=== PATIENT | male | born 1935 | race Caucasian/White ===

== ENCOUNTER 2023-03-10 15:12 | Outpatient (OUT) | payer MEDICARE, SELFPAY ==
--- NOTE | 2023-03-10 | XR_ITS ---
[address] [address] Patient Name: CARLO SUAREZ MRN: [id number] date: 1935 Sex: M Assigned Patient Location: LAB Current Patient Location: LAB Accession/Order Number: [id number] Exam Date: 03/10/2023 15:40 Report Date: 03/10/2023 16:13 At the request of: JAIDEN JONES Procedure: XR chest 2V EXAM: XR chest 2V HISTORY: Short of breath COMPARISON: 02/01/2022 TECHNIQUE: Upright PA and lateral chest x-ray FINDINGS: The heart is not enlarged and the vasculature is not distended. The lungs are overexpanded with flattening of the hemidiaphragms indicating COPD. Calcified granulomas are again seen on the right. No acute infiltrate, effusion or pneumothorax is identified. A left shoulder prosthesis is in place. IMPRESSION: No acute infiltrate or evidence of cardiac decompensation. Some chronic changes are present. The overall appearance of the chest is unchanged. Electronically authenticated by: KAREEN MACHUCA Date: 03/10/2023 16:13
[2023-03-10 15:38] LABS: Basophils Absolute Auto 0.1 10^3/uL (0.0-0.1); Eosinophils Absolute Auto 0.3 10^3/uL (0.0-0.7); Eosinophils Percent Auto 5.3 % (0.9-7.0); Hematocrit 38.8 % (42.0-54.0); Immature Granulocytes Abs Auto 0.05 10^3/uL (0.00-0.03); Immature Granulocytes Pct Auto 0.8 % (0.0-0.5); Lymphocytes Absolute Auto 1.2 10^3/uL (1.2-3.8); Lymphocytes Percent Auto 18.5 % (20.5-60.0); Mean Corpuscular HGB Conc 33.5 g/dL (29.9-35.2); Mean Corpuscular Hemoglobin 32.4 pg (25.9-34.0); Mean Corpuscular Volume 96.8 fL (80.0-94.0); Mean Platelet Volume 10.6 fL (9.5-13.5); Monocytes Absolute Auto 0.6 10^3/uL (0.3-0.8); Monocytes Percent Auto 9.2 % (1.7-12.0); Neutrophils Absolute Auto 4.1 10^3/uL (1.4-6.5); Neutrophils Percent Auto 65.2 % (43.0-75.0); Platelet Count 163 10^3/uL (150-450); Red Blood Count 4.01 10^6/uL (4.70-6.10); Red Cell Distribution Width 13.7 % (11.0-15.0); White Blood Count 6.2 10^3/uL (4.0-11.0)
[2023-03-11 14:01] LABS: Anion Gap 16.1; Aspartate Amino Transferase 43 U/L (15-37); BUN Creatinine Ratio 25.9; Bilirubin Total 0.5 mg/dL (0.2-1.0); Calcium 9.3 mg/dL (8.5-10.1); Carbon Dioxide 27.1 mmol/L (21.0-32.0); Chloride 100 mmol/L (98-107); Estimated GFR (African America 33 (>=60); Estimated GFR (Non-African Ame 27 (>=60); Glucose 398 mg/dL (74-106); Potassium 4.2 mmol/L (3.5-5.1); Sodium 139 mmol/L (136-145)
[2023-03-11 14:02] LABS: Alanine Aminotransferase 60 U/L (16-63); Albumin Globulin Ratio 0.8; Albumin Level 3.7 g/dL (3.4-5.0); Alkaline Phosphatase 175 U/L (46-116); Globulin 4.9 g/dL; Total Protein 8.6 g/dL (6.4-8.2)
== END 2023-03-10 15:13 | disposition home or self-care (01) ==
LOC: LAB 15:16
PROVIDERS: PCP Family Medicine; Visit Provider Internal Medicine Interventional Cardiology
DX: R06.02 Shortness of breath (principal)
CPT/HCPCS: 36415; 71046; 80053; 83880; 85025

== ENCOUNTER 2023-04-01 08:10 | Outpatient (OUT) | payer MEDICARE, SELFPAY ==
--- NOTE | 2023-04-01 | PCN_ITS ---
CARDIAC STRESS TEST Requesting Physician:? Procedure Date:? 04/01/2023 This was a Lexiscan stress test with myocardial perfusion imaging performed at the [facility] on 04/01/2023.? The patient signed informed consent.? The patient was attached to electrocardiographic monitoring.? An intravenous line was secured.? Baseline vital signs and ECG were obtained.? Lexiscan 0.4 mg was infused intravenously followed by administration of Cardiolite.? The patient then went on to obtain myocardial perfusion imaging. Resting heart rate was 59 BPM.? Maximum heart rate was 89 BPM. Resting blood pressure was 144/76 and maximum blood pressure was 144/76. Baseline ECG showed evidence of sinus rhythm with first degree AV block.? Post Lexiscan infusion, there was evidence of prolongation of the AK interval with occasional non-conducted P-waves. ECG at the end of the test showed evidence of sinus rhythm with third degree AV block and marked AK interval prolongation. SUMMARY OF THE FINDINGS: 1.? No evidence of ischemic ECG changes following infusion of Lexiscan. 2.? Significant bradycardia, prolongation of the AK interval and occurrence of non-conducted P-waves seen following infusion of Lexiscan. 3.? Myocardial perfusion images will be reported separately. [facility]
--- NOTE | 2023-04-01 08:15 | NM_ITS ---
Patient: CARLO SUAREZ Exam Date: 04/01/2023 : 1935 Gender:M Ordering : DR JAIDEN JONES M.D. Admission #: [id number] Family : DR Jose Huiwale . Order #: [id number] CLICK HERE TO VIEW EXAM RADIOLOGY REPORT PROCEDURE: NM RAZ PERF SPECT REST STR COMPARISON: None. INDICATIONS: Shortness of breath TECHNIQUE: Exam Description: Stress/Rest one day protocol gated SPECT Rest Imagin.0 mCi Tc-99m Cardiolite IV on 04/01/2023 Stress Imaging 31.3 mCi Tc-99m Cardiolite IV on 04/01/2023 Exercise Protocol: 0.4 mg Lexiscan given IV Heart Rate (bpm): Rest: 59 Max: 89 PMHR: 66 Blood Pressure: Rest: 144/76 Max: 144/76 Symptoms: Rest and peak stress ECG findings were normal and the exercise portion of the study was normal per attending physician Dr. Franklin . For more details please see separate cardiac stress test report. FINDINGS: QUALITY OF STUDY: PERFUSION DEFECT: LOCATION: Apical anterior. [place]. SIZE: Small (1-2 segments). SEVERITY: Mild. TYPE: Persistent. WALL MOTION: Normal. LV SIZE: Normal. 116 mL. TID / TCD: None; 1.0 LVEF: Normal. Calculated EF 59%. SUMMARY: Myocardial perfusion imaging study has ABNORMAL findings. CONCLUSION: 1. Small fixed defect distal anterior wall and apex, possibly a buckle thinning 2. No reversible ischemia 3. Normal exercise test Dictated by: Doc Grace MD on 04/02/2023 at 09:19 Approved by: Doc Grace MD on 04/02/2023 at 09:38
--- NOTE | 2023-04-01 09:49 | CA_ITS ---
Patient: CARLO SUAREZ Exam Date: 04/01/2023 : 1935 Gender:M Ordering : DR Jessy Lamas M.D. Admission #: [id number] Family : Order #: [id number] CLICK HERE TO VIEW EXAM ECHOCARDIOGRAM REPORT PROCEDURE: CA ECHO DOPPLER COMPLETE INDICATIONS: Shortness of breath COMPARISON: None. DESCRIPTION: COMPLETE ECHOCARDIOGRAM Real-time transthoracic echocardiography with 2D, M-mode, spectral and color flow Doppler performed. QUALITY: Technical quality was good. LEFT VENTRICLE: Normal chamber size. Borderline left ventricular hypertrophy. Systolic function is at the lower limits of normal. LV EF: Lower limits of normal left ventricular ejection fraction, (50-55%). DIASTOLIC: ATRIAL SEPTUM: LEFT ATRIUM: Moderate dilatation. RIGHT ATRIUM: Mild dilatation. RIGHT VENTRICLE: Normal chamber size. Normal right ventricular systolic function. TRICUSPID VALVE: Normal mobility and thickness. No stenosis with trivial regurgitation. MITRAL VALVE: Normal mobility and thickness. No evidence of mitral valve stenosis. There is no mitral annular calcification. Trivial mitral regurgitation. AORTIC VALVE: Normal trileaflet appearance. Moderately calcified aortic valve. Moderately diminished mobility. Doppler velocity suggest moderate aortic valve stenosis. DVI 0.4, SINAN 1.2cm2, Vmax 1.94m/s, Mean gradient 8mmHg.Trivial aortic regurgitation. AORTIC ROOT: Normal diameter and appearance. PULMONIC VALVE: Normal thickness and mobility. No stenosis. No regurgitation. PERICARDIUM: No evidence of pericardial effusion. IVC: Collapses with inspirations. Normal size. PLEURA: CONCLUSION: 1. The ventricular systolic function is at the lower limits of normal. LVEF is 50 to 55%. 2. Normal right ventricular size and systolic function. 3. Mild to moderate atrial dilatation. 4. Moderate aortic valve stenosis. Adult Echocardiography Procedure Report Left Ventricle LVEDD (3.7 - 5.6 cm): 5.08 cm LVESD (2.2 - 4.0 cm): 3.81 cm LVIVS thickness (0.6 - 1.2 cm): 1.09 cm LVPW thickness (0.5 - 1.0 cm): 1.03 cm e': 0.08 m/s E - e': 10.69 LVOT Max Gradient: 2.21 mm[Hg] LVOT Area (cm2): 0.74 m/s Peak Velocity (LVOT): 0.74 m/s Mean Velocity (LVOT): 0.50 m/s LVOT Diameter 1.97 cm Left Ventricular Ejection Fraction: 50-55 % Left Atrium LA Volume Index (2D A2C): 38.48 ml/m2 Left Atrium Systolic Dimension: 4.45 cm Mitral Valve MV E to A Ratio: 0.90 Mitral Valve A-Wave Peak Velocity: 0.91 m/s Mitral Valve E-Wave Peak Velocity: 0.82 m/s Right Ventricle RV Internal Diastolic Dimension: 3.35 cm Aorta AO Root Diam: 3.07 cm Ascending Ao Diam: 2.95 cm Aortic Valve AoV Area (Peak Shaheen): 1.22 cm2, 1.21 cm2 AoV Area (VTI): 1.12 cm2, 1.17 cm2 Peak Velocity(Antegrade Flow): 1.87 m/s, 1.76 m/s, 1.94 m/s Peak Gradient(Antegrade Flow): 13.97 mm[Hg], 12.39 mm[Hg], 15.01 mm[Hg] Mean Velocity(Antegrade Flow): 1.39 m/s, 1.19 m/s, 1.39 m/s Mean Gradient(Antegrade Flow): 8.56 mm[Hg], 6.57 mm[Hg], 8.39 mm[Hg] Velocity Time Integral: 48.13 cm, 47.89 cm, 54.63 cm Tricuspid Valve Peak Velocity (Regurgitant Flow): 1.81 m/s Pulmonic Valve Mean Gradient: 1.22 mm[Hg], 1.55 mm[Hg] Mean Velocity: 0.50 m/s, 0.58 m/s Peak Velocity: 0.87 m/s Peak Gradient: 2.90 mm[Hg], 3.21 mm[Hg] Right Atrium Right Atrium Systolic Pressure: 79.84 ml, 79.84 ml Dictated by: Benny Franklin M.D. on 04/03/2023 at 18:28 Approved by: Benny Franklin M.D. on 04/03/2023 at 18:34
[2023-04-01] MEDS: REGADENOSON 0.4 MG/5 ML SYRINGE IV (10:25)
== END 2023-04-01 08:11 | disposition home or self-care (01) ==
LOC: NM 08:11
PROVIDERS: PCP Family Medicine; Visit Provider Internal Medicine Interventional Cardiology
DX: R06.02 Shortness of breath (principal)
CPT/HCPCS: 78452; 93017; 93306; A9500; J2785

== ENCOUNTER 2023-06-02 14:15 | Outpatient (OUT) | payer MEDICARE, SELFPAY ==
--- NOTE | 2023-06-02 14:17 | US_ITS ---
[address] [address] Patient Name: CARLO SUAREZ MRN: [id number] date: 1935 Sex: M Assigned Patient Location: Current Patient Location: US Accession/Order Number: [id number] Exam Date: 06/02/2023 14:19 Report Date: 06/02/2023 16:56 At the request of: NON-STAFF PHYSICIAN Procedure: US carotid duplex BI EXAMINATION: US carotid duplex BI HISTORY: Right carotid bruit COMPARISON: No relevant comparison available. TECHNIQUE: Duplex Doppler ultrasound analysis of carotid and vertebral arteries. . Bilateral carotid arterial duplex examination was performed using B-mode, color flow and spectral analysis. Carotid stenosis is reported according to validated velocity parameters, similar to NASCET criteria. FINDINGS: RIGHT CAROTID ARTERY Extensive atherosclerosis. 90% area reduction in the bulb Subclavian: PSV: 149.6 cm/s cm/s EDV: 0.0 cm/s cm/s CCA: Prox: PSV: 76.7 cm/s cm/s EDV: 11.6 cm/s cm/s Mid: PSV: 45.6 cm/s cm/s EDV: 9.3 cm/s cm/s Distal: PSV: 48.1 cm/s cm/s EDV: 13.2 cm/s cm/s BULB: PSV: 65.0 cm/s cm/s EDV: 8.0 cm/s cm/s ICA: Prox: PSV: 267.6 cm/s cm/s EDV: 50.1 cm/s cm/s Mid: PSV: 139.3 cm/s cm/s EDV: 38.4 cm/s cm/s Distal: PSV: 119.9 cm/s cm/s EDV: 26.8 cm/s cm/s ECA: PSV: 127.9 cm/s cm/s EDV: 16.4 cm/s cm/s VERTEBRAL: PSV: 36.1 cm/s cm/s EDV: 6.3 cm/s cm/s, antegrade ICA/CCA ratio: PSV: 3.5 EDV: 4.3 LEFT CAROTID ARTERY Extensive atherosclerosis. 87% area reduction in the bulb Subclavian: PSV: 150.1 cm/s cm/s EDV: 0.0 cm/s CCA: Prox: PSV: 34.8 cm/s cm/s EDV: 12.8 cm/s Mid: PSV: 41.3 cm/s cm/s EDV: 15.4 cm/s Distal: PSV: 34.8 cm/s cm/s EDV: 12.8 cm/s BULB: PSV: 42.6 cm/s cm/s EDV: 15.4 cm/s ICA: Prox: PSV: 59.4 cm/s cm/s EDV: 18.0 cm/s Mid: PSV: 22.7 cm/s cm/s EDV: 6.3 cm/s Distal: PSV: 32.0 cm/s cm/s EDV: 8.5 cm/s ECA: PSV: 294.5 cm/s cm/s EDV: 63.1 cm/s VERTEBRAL: PSV: 43.9 cm/s cm/s EDV: 11.5 cm/s , antegrade ICA/CCA ratio: PSV: 1.7 EDV: 1.4 US/US carotid duplex BI IMPRESSION: >70% flow stenosis in the right internal carotid artery in the area of reduction noted to the 90% in the right carotid bulb 80% area reduction in the left carotid bulb, low flow velocities in the left ICA are likely related to proximal stenosis Surgical evaluation suggested Spectral Doppler US Thresholds (Reference: Martin EG, et al. Radiology 2000; 214:247-252) Stenosis (%) PSV (cm/sec) VICA/VCCA 0-49 <150 <2.5 50-69 150-225 2.5-4.0 >70 >225 >4.0 Electronically authenticated by: ALVA MAI Date: 06/02/2023 16:56
== END 2023-06-02 14:16 | disposition home or self-care (01) ==
LOC: US 14:16
PROVIDERS: PCP Family Medicine
DX: R09.89 Other specified symptoms and signs involving the circulatory and respiratory systems (principal); I65.23 Occlusion and stenosis of bilateral carotid arteries
CPT/HCPCS: 93880

== ENCOUNTER 2023-06-30 12:26 | Outpatient (OUT) | payer MEDICARE, SELFPAY ==
[2023-06-30 12:54] LABS: Hemoglobin 12.1 g/dL (14.0-18.0); Mean Corpuscular HGB Conc 33.6 g/dL (29.9-35.2); Mean Corpuscular Hemoglobin 32.4 pg (25.9-34.0); Mean Corpuscular Volume 96.3 fL (80.0-94.0); Mean Platelet Volume 10.7 fL (9.5-13.5); Platelet Count 138 10^3/uL (150-450); Red Blood Count 3.74 10^6/uL (4.70-6.10); Red Cell Distribution Width 14.8 % (11.0-15.0); White Blood Count 6.2 10^3/uL (4.0-11.0)
[2023-06-30 12:55] LABS: Bilirubin Urine NEGATIVE (NEGATIVE); Blood Urine NEGATIVE (NEGATIVE); Clarity Urine CLEAR (CLEAR); Color Urine LT. YELLOW (YELLOW); Glucose Urine UA NEGATIVE (NEGATIVE); Ketones Urine NEGATIVE (NEGATIVE); Leukocyte Esterase Urine NEGATIVE (NEGATIVE); Nitrite Urine NEGATIVE (NEGATIVE); Protein Urine NEGATIVE (NEG/TRACE); Specific Gravity Urine <=1.005 (1.005-1.025); Urobilinogen Urine 0.2 EU/dL (0.2-1.0)
[2023-06-30 13:18] LABS: Creatinine Urine Random <13.00 mg/dL (20.00-300.00); Total Protein Urine Random 7.2 mg/dL (<=11.9)
[2023-06-30 13:21] LABS: Alanine Aminotransferase 61 U/L (16-63); Albumin Globulin Ratio 0.8; Albumin Level 3.6 g/dL (3.4-5.0); Alkaline Phosphatase 156 U/L (46-116); Anion Gap 11.8; Aspartate Amino Transferase 52 U/L (15-37); Bilirubin Total 0.7 mg/dL (0.2-1.0); Calcium 8.9 mg/dL (8.5-10.1); Carbon Dioxide 29.9 mmol/L (21.0-32.0); Chloride 104 mmol/L (98-107); Estimated GFR (African America 48 (>=60); Estimated GFR (Non-African Ame 40 (>=60); Globulin 4.5 g/dL; Glucose 140 mg/dL (74-106); Magnesium 1.1 mg/dL (1.8-2.4); Phosphorus 2.8 mg/dL (2.6-4.7); Potassium 3.7 mmol/L (3.5-5.1); Sodium 142 mmol/L (136-145); Total Protein 8.1 g/dL (6.4-8.2); Uric Acid 6.9 mg/dL (3.5-7.2)
[2023-06-30 13:22] LABS: Percent Iron Saturation 42.5 %
[2023-07-01 11:09] LABS: PTH, Intact 58 pg/mL (15-65)
== END 2023-06-30 12:27 | disposition home or self-care (01) ==
LOC: LAB 12:28
PROVIDERS: PCP Family Medicine; Visit Provider Internal Medicine Nephrology
DX: I12.9 Hypertensive chronic kidney disease with stage 1 through stage 4 chronic kidney disease, or unspecified chronic kidney disease (principal); N18.32 Chronic kidney disease, stage 3b; D64.9 Anemia, unspecified; R60.0 Localized edema; E83.51 Hypocalcemia; E61.1 Iron deficiency; E83.42 Hypomagnesemia; N40.1 Benign prostatic hyperplasia with lower urinary tract symptoms; N13.8 Other obstructive and reflux uropathy
CPT/HCPCS: 36415; 80053; 81003; 82306; 82570; 82607; 82728; 82746; 83540; 83550; 83735; 83970; 84100; 84156; 84550; 85027

== ENCOUNTER 2023-11-11 12:01 | Outpatient (OUT) | payer MEDICARE, SELFPAY ==
[2023-11-11 12:33] LABS: Hematocrit 40.6 % (42.0-54.0); Hemoglobin 13.4 g/dL (14.0-18.0); Mean Corpuscular Hemoglobin 32.8 pg (25.9-34.0); Mean Corpuscular Volume 99.5 fL (80.0-94.0); Mean Platelet Volume 11.5 fL (9.5-13.5); Platelet Count 151 10^3/uL (150-450); Red Blood Count 4.08 10^6/uL (4.70-6.10); Red Cell Distribution Width 14.3 % (11.0-15.0); White Blood Count 6.5 10^3/uL (4.0-11.0)
[2023-11-11 13:08] LABS: Alanine Aminotransferase 80 U/L (16-63); Albumin Globulin Ratio 0.7; Albumin Level 3.5 g/dL (3.4-5.0); Alkaline Phosphatase 206 U/L (46-116); Anion Gap 15.2; Aspartate Amino Transferase 55 U/L (15-37); BUN Creatinine Ratio 26.9; Bilirubin Total 0.7 mg/dL (0.2-1.0); Calcium 9.6 mg/dL (8.5-10.1); Carbon Dioxide 27.8 mmol/L (21.0-32.0); Chloride 99 mmol/L (98-107); Estimated GFR (African America 40 (>=60); Estimated GFR (Non-African Ame 33 (>=60); Globulin 5.2 g/dL; Glucose 243 mg/dL (74-106); Magnesium 1.9 mg/dL (1.8-2.4); Phosphorus 3.4 mg/dL (2.6-4.7); Sodium 138 mmol/L (136-145); Total Protein 8.7 g/dL (6.4-8.2); Uric Acid 8.2 mg/dL (3.5-7.2)
[2023-11-11 13:19] LABS: Creatinine Urine Random 16.67 mg/dL (20.00-300.00); Protein Creatinine Ratio Urine 0.48
[2023-11-12 12:10] LABS: PTH, Intact 77 pg/mL (15-65)
== END 2023-11-11 12:02 | disposition home or self-care (01) ==
LOC: LAB 12:02
PROVIDERS: PCP Family Medicine; Visit Provider Internal Medicine Nephrology
DX: N18.32 Chronic kidney disease, stage 3b (principal); I10 Essential (primary) hypertension; D64.9 Anemia, unspecified; R60.0 Localized edema; E83.51 Hypocalcemia; E61.1 Iron deficiency; E83.42 Hypomagnesemia; N40.1 Benign prostatic hyperplasia with lower urinary tract symptoms; N13.8 Other obstructive and reflux uropathy
CPT/HCPCS: 36415; 80053; 82306; 82570; 82607; 82728; 82746; 83540; 83550; 83735; 83970; 84100; 84156; 84166; 84550; 85027; 86335

== ENCOUNTER 2023-11-19 12:59 | Outpatient (OUT) | payer MEDICARE, SELFPAY ==
[2023-11-19 13:45] LABS: Creatinine Urine Random <13.00 mg/dL (20.00-300.00); Microalbumin Urine Random <1.3 mg/dL (<=30.0)
[2023-11-19 14:10] LABS: Albumin Level 3.6 g/dL (3.4-5.0); Anion Gap 13.9; BUN Creatinine Ratio 26.1; Calcium 9.5 mg/dL (8.5-10.1); Carbon Dioxide 28.8 mmol/L (21.0-32.0); Chloride 96 mmol/L (98-107); Cholesterol 177 mg/dL (<=200); Estimated GFR (African America 39 (>=60); Estimated GFR (Non-African Ame 32 (>=60); Glucose 455 mg/dL (74-106); HDL Cholesterol 60 mg/dL (40-60); Phosphorus 3.7 mg/dL (2.6-4.7); Potassium 3.7 mmol/L (3.5-5.1); Sodium 135 mmol/L (136-145); Triglycerides 187 mg/dL (<=150); VLDL CHOLESTEROL 37.4 mg/dL
== END 2023-11-19 13:00 | disposition home or self-care (01) ==
LOC: LAB 12:59
PROVIDERS: PCP Family Medicine; Visit Provider Internal Medicine
DX: E11.29 Type 2 diabetes mellitus with other diabetic kidney complication (principal); Z71.3 Dietary counseling and surveillance; E78.2 Mixed hyperlipidemia; N18.9 Chronic kidney disease, unspecified
CPT/HCPCS: 36415; 80061; 80069; 82043; 82306; 82570

== ENCOUNTER 2023-11-21 13:48 | Outpatient (OUT) | payer OTHER, SELFPAY ==
--- NOTE | 2023-11-21 13:52 | CT_ITS ---
[address] [address] Patient Name: CARLO SUAREZ MRN: [id number] date: 1935 Sex: M Assigned Patient Location: CT Current Patient Location: Accession/Order Number: [id number] Exam Date: 11/21/2023 14:57 Report Date: 11/22/2023 05:21 At the request of: NON-STAFF PHYSICIAN Procedure: CT abdomen pelvis wo con EXAMINATION: CT abdomen pelvis wo con HISTORY: Elevated Liver Enzymes, Right Lower Quadrant Tenderness , occasional nausea COMPARISON: CT abdomen pelvis 09/15/2019 TECHNIQUE: Axial, Coronal, and Sagittal images were obtained without and/or with IV contrast as indicated by examination type. Dose reduction techniques were achieved by using automated exposure control and/or adjustment of mA and/or kV according to patient size and/or use of iterative reconstruction technique. FINDINGS: LUNG BASES: Nodular liver margins suggestive of cirrhosis. LIVER: No enlargement, atrophy, suspicious density, or significant focal lesion. BILIARY: No dilatation or calcification. PANCREAS: No lesion, fluid collection, or abnormal duct dilatation. SPLEEN: No enlargement or focal lesion. ADRENALS: No mass or enlargement. KIDNEYS: Mild atrophy bilaterally. No mass, obstruction, or calcification. BOWEL/MESENTERY: Innumerable small diverticula involving the descending and sigmoid colon without acute inflammatory changes. No visible mass, obstruction, or bowel wall thickening. AORTA/VASCULAR: Marked atherosclerotic disease of aorta and branches. No aneurysm. RETROPERITONEUM: No mass or adenopathy. LYMPH NODES: No adenopathy. URINARY BLADDER: No visible focal wall thickening, lesion, or calculus. PELVIC ORGANS: No visible mass. Pelvic organs appropriate for patient age. ABDOMINAL WALL: No mass or hernia. Suspect prior umbilical hernia repair. BONES: No bony lesion or fracture. OTHER: Negative. CT/CT abdomen pelvis wo con IMPRESSION: 1. Nodular liver; nonspecific but suggestive of cirrhosis. No ascites, enlargement of the spleen, or secondary findings to suggest portal hypertension. 2. Colonic diverticulosis. 3. Marked atherosclerotic disease. Electronically authenticated by: HOLLIS CROW Date: 11/22/2023 05:21
--- OUTSIDE RECORDS SUMMARY | 2023-11-21 14:10 | XMS_ITS | CCD ---
Author Name Unknown Address [id number] [place] [address] Organization [facility] Care Team Providers Care Maintenance Welder Name Role Phone SELF, REFERRED Referring Unavailable SCOTT BARNETT Admitting Unavailable SCOTT BARNETT Attending Unavailable JOSE BREWER Primary Care Unavailable Kaur Robins Unavailable MD Kaur Robins Primary Care Provider MD Kaur Robins Attending Provider KAREEN CRABTREE Attending Unavailable KAREEN CRABTREE Admitting Unavailable DANIELLA, DR JOSE Dhaliwal Primary Care Unavailable WEST, DR ALVA Johnston Consulting Unavailable WEST, DR ALVA Johnston Attending Unavailable WEST, DR ALVA Johnston Admitting Unavailable NADERER, DR JOSE Dhaliwal Primary Care Unavailable WEST, DR ALVA Johnston Consulting Unavailable WEST, DR ALVA Johnston Attending Unavailable WEST, DR ALVA Johnston Admitting Unavailable NADERER, DR JOSE Dhaliwal Primary Care Unavailable [facility] DR KENDALL Swanson Consulting Unavailable WEST, DR ALVA Johnston Consulting Unavailable WEST, DR ALVA Johnston Attending Unavailable WEST, DR ALVA Johnston Admitting Unavailable NADERER, DR JOSE Dhaliwal Primary Care Unavailable NADERER, DR JOSE Dhaliwal Primary Care Unavailable WEST, DR ALVA Johnston Attending Unavailable WEST, DR AVLA Johnston Admitting Unavailable WEST, DR ALVA Johnston Consulting Unavailable NADERER, DR JOSE Dhaliwal Primary Care Unavailable WEST, DR ALVA Johnston Consulting Unavailable WEST, DR ALVA Johnston Attending Unavailable WEST, DR ALVA Johnston Admitting Unavailable NADERER, DR JOSE Dhaliwal Primary Care Unavailable RAMY WATKINS Consulting Unavailable RAMY WATKINS Attending Unavailable RAMY WATKINS Admitting Unavailable MISC, DR REYNAGA Consulting Unavailable MISC, DR REYNAGA Attending Unavailable NADALETHEA, DR JOSE Dhaliwal Primary Care Unavailable MISC, DR REYNAGA Admitting Unavailable BAKHOUS, AZIZ Consulting Unavailable BAKHOUS, AZIZ Attending Unavailable BAKHOUS, AZIZ Admitting Unavailable NADERER, DR JOSE Dhaliwal Primary Care Unavailable EARL, JERICA Attending Unavailable NADERER, DR JOSE Dhaliwal Primary Care Unavailable EARL, JERICA Admitting Unavailable EARL, JERICA Consulting Unavailable NADERER, DR JOSE Dhaliwal Primary Care Unavailable MISC, DR REYNAGA Consulting Unavailable MISC, DOCTOR Attending Unavailable MISC, DOCTOR Admitting Unavailable BAKHOUS, AZIZ Consulting Unavailable BAKHOUS, AZIZ Attending Unavailable NADERER, DR JOSE Dhaliwal Primary Care Unavailable BAKHOUS, AZIZ Admitting Unavailable ELTAHAWY, DR HWANG Consulting Unavailable ELTAHAWY, DR HWANG Attending Unavailable NADERER, DR JOSE Dhaliwal Primary Care Unavailable ELTAHAWY, DR HWANG Admitting Unavailable NADERER, DR JOSE Dhaliwal Primary Care Unavailable NADERER, DR JOSE Dhaliwal Consulting Unavailable NADERER, DR JOSE Dhaliwal Attending Unavailable NADERER, DR JOSE Dhaliwal Admitting Unavailable EARL, JERICA Admitting Unavailable NADERER, DR JOSE Dhaliwal Primary Care Unavailable EARL, JERICA Attending Unavailable WEST, DR ALVA Johnston Consulting Unavailable WEST, DR ALVA Johnston Attending Unavailable WEST, DR ALVA Johnston Admitting Unavailable NADERER, DR JOSE Dhaliwal Primary Care Unavailable [facility], DR KENDALL Swanson Consulting Unavailable Jose Brewer MD Primary Care Provider [phone] JOSE BREWER Attending Unavailable WITHERELL, SHELMITH Attending Unavailable WITHERELL, SHELMITH Attending Unavailable ELTAHAWY, EHAB Attending Unavailable ELTAHAWY, EHAB Attending Unavailable Allergies Allergy Classification Reported Allergen(s) Allergy Type Date of Onset Reaction(s) Facility (1 source) Penicillin V Drug Allergy stomach upset [email or web address] Other (5 sources) Penicillin; Translations: [penicillin] Drug Allergy stomach upset [facility] (2 sources) cefdinir Drug Allergy 09-15-19 [facility] (3 sources) cefdinir Drug Allergy 10-08-19 24 Diarrhea [facility] (4 sources) Penicillins; Translations: [PENICILLINS] Drug Intolerance 05-05-20 21 Diarrhea, Nausea And Vomiting, GI intolerance, Unknown [facility] Work Phone: (3 sources) Shellfish Propensity to adverse reactions 01-29-20 14 Rash [facility] Medications Current Medications Medication Drug Class(es) Dates Sig (Normalized) Sig (Original) [id number] 200 actuat albuterol 0.09 mg/actuat metered dose inhaler (5 sources) beta2-Adrenergic Agonist Start: 05-13-2023 albuterol HFA 90 mcg/act inhaler 1 puff 0 05/13/2023 Active End: 10-30-2023 albuterol (ProAir RespiClick ) 90 mcg/act breath-activated inhaler every 4 (four) hours. 0 10/30/2023 Discontinued (Therapy completed) Albuterol / Ipratropium (9 sources) Anticholinergic, beta2-Adrenergic Agonist Albuterol-Ipratropiu m Active ascorbic acid 113 mg / copper gluconate 0.4 mg / docosahexaenoic acid 87.5 mg / eicosapentaenoic acid 163 mg / lutein 2.5 mg / tocopherol acetate 100 unt / zeaxanthin 0.5 mg / zinc oxide 17.4 mg oral capsule (3 sources) Vitamin C take 1 capsule by mouth twice daily PreserVision AREDS 2 - 1 CAPSULE Orally TWICE A DAY Active aspirin 81 mg oral tablet (2 sources) Platelet Aggregation Inhibitor, Nonsteroidal Anti-inflammatory Drug take 1 tablet by mouth once daily Aspirin 81 81 MG 1 tablet Orally Once a day Active atorvastatin 40 mg oral tablet (14 sources) HMG-CoA Reductase Inhibitor End: 10-30 atorvastatin (Lipitor) 40 MG tablet 1 (one) time each day at the same time 0 Active bumetanide 0.5 mg oral tablet (12 sources) Loop Diuretic Start : 10-23 take 2 tablets by mouth once daily Bumex 0.5 MG 2 tabs Orally Once a day for 90 days Oct, Active take 1 tablet by mouth once melissa y bumetanide (Bumex) 0.5 MG tablet Take 0.5 mg by mouth 1 (one) time each day at the same time. 0 Active take 4 tablets by mo uth in the morning, then take 4 tablets by mouth once daily in the evening Bumex 0.5 MG 4 tabs in am and 4 tab PM Orally Once a day for 30 days Active Calcium Carbonate (11 sources) Start: 01-14-2022 Calcium Carbon ate 1250 (500 Ca) MG 2 Orally bid January, Active Start: 01-14-2022 Calcium Carbon ate 1250 (500 Ca) MG 2 Orally bid for 30 day(s) January, Active take 1 tablet by lynne th in the morning calcium carbonate (Os-Victor Hugo) 1250 (500 Ca) MG tablet Take 1 tablet by mouth in the morning and 1 tablet before bedtime. 0 Active Calcium Carbonat e 1250 (500 Ca) MG 2 Orally bid Not-Taking Calcium Carbonat e 1250 (500 Ca) MG 2 Orally bid Active carvedilol 3.125 mg oral tablet (12 sources) alpha-Adrenergic Estuardo, beta-Adrenergic Estuardo carvedilol (Core g) 3.125 MG tablet Take 3.125 mg by mouth. 0 Active take 1 tablet by lynne th every twelve hours Carvedilol 12.5 MG 1 tablet with food Orally Twice a day Active chlorthalidone 25 mg oral tablet (4 sources) Thiazide-like Diuretic take 1 tablet by mouth every twenty-four hours Chlorthalidone 25 MG 1 tablet in the morning with food Orally Once a day Active clopidogrel 75 mg oral tablet (12 sources) P2Y12 Platelet Inhibitor clopidogrel (Plavix) 75 MG tablet Take 75 mg by mouth. 0 Active clotrimazole 10 mg/ml topical cream (2 sources) Azole Antifungal Start: clotrimazole (Lotrimin) 1 % cream Indications: Skin candidiasis Apply topically 2 (two) times a day 60 g 2 10/30/2023 Active empagliflozin 10 mg oral tablet (2 sources) Sodium-Glucose Cotransporter 2 Inhibitor Start: 024 take 10 mg by mouth in the morning Jardiance 10 MG Take 10 mg by mouth in the morning. 0 10/25/2023 Active 15 ml ferric carboxymaltose 50 mg/ml injection (3 sources) Start: Injectafer 750 MG/15ML as directed Intravenous every 2 weeks for 14 days January, Active ferrous sulfate 325 mg oral tablet (8 sources) take 1 tablet by mouth at mealtime ferrous sulfate 325 (65 Fe) MG tablet Take 65 mg by mouth in the morning. Take with meals. 0 Active take 1 tablet by mouth every twe lve hours Ferrous Sulfate 325 (65 Fe) MG 1 tablet Orally twice a day Active take 1 tablet by mouth twice hunter ly Ferrous Sulfate 325 (65 Fe) MG 1 tablet Orally twice a day Active take 1 tablet by mouth once melissa y Ferrous Sulfate 325 (65 Fe) MG 1 tablet Orally Once a day Active 30 actuat fluticasone furoate 0.1 mg/actuat / umeclidinium 0.0625 mg/actuat / vilanterol 0.025 mg/actuat dry powder inhaler (5 sources) Anticholinergic, Corticosteroid, beta2-Adrenergic Agonist take 1 puff(s) by inhalation once daily Trelegy Ellipta 100-62.5-25 MCG/INH 1 puff Inhalation Once a day Active 120 actuat formoterol fumarate 0.0048 mg/actuat / glycopyrrolate 0.009 mg/actuat metered dose inhaler (2 sources) beta2-Adrenergic Agonist take 2 puff(s) by inhalation in the morning Glycopyrrolate-For moterol 9-4.8 MCG/ACT aerosol Inhale 2 puffs in the morning and 2 puffs before bedtime. 0 Active glimepiride 2 mg oral tablet (6 sources) Sulfonylurea Start: glimepiride (Amaryl) 2 MG tablet Take 2 mg by mouth. 0 10/01/2022 Active hydrOXYzine hydrochloride 25 mg oral tablet (12 sources) Antihistamine hydrOXYzine HCl (Atarax) 25 MG tablet Take 25 mg by mouth. 0 Active lisinopril 10 mg oral tablet (2 sources) Angiotensin Converting Enzyme Inhibitor take 1 tablet by mouth every twenty-four hours Lisinopril 10 MG 1 tablet Orally Once a day Active Magnesium (4 sources) Magnesium 400 MG as directed Orally twice daily Active Magnesium Bisglycinate 100 MG (2 sources) Start: 023 take 2 tablets by mouth once daily Magnesium Bisglycinate 100 MG 2 tab Orally daily for 30 days Jun, Active magnesium oxide 420 mg oral tablet (6 sources) Start: 024 take 1 tablet by mouth in the morning magnesium oxide 420 MG tablet Take 1 tablet by mouth in the morning. 0 10/14/2023 Active End: 10-30-2023 take 1 tablet by mouth in the morning magnesium oxide (Mag-Ox) 400 MG tablet Take 400 mg by mouth in the morning. 0 10/30/2023 Discontinued (Therapy completed) take 1 tablet by lynne th every twenty-four hours Magnesium Oxide 420 MG 1 tablet as needed Orally Once a day Not-Taking meclizine hydrochloride 25 mg oral tablet (14 sources) Antiemetic take 1 tablet by mouth four times daily as needed meclizine (Antivert) 25 MG tablet Take 25 mg by mouth 4 (four) times a day as needed 0 Active take 1 tablet by lynne th every twelve hours meclizine (Antivert) 25 MG tablet 25 mg every 12 (twelve) hours. 0 Active pantoprazole 40 mg delayed release oral tablet (12 sources) Proton Pump Inhibitor pantoprazo le (ProtoNix) 40 MG EC tablet Take 40 mg by mouth. 0 Active pioglitazone 15 mg oral tablet (4 sources) Peroxisome Proliferator Receptor alpha Agonist, Peroxisome Proliferator Receptor gamma Agonist, Thiazolidinedione take 1 tablet by mouth every twenty-four hours Actos 15 MG 1 tablet Orally Once a day Active ProAir RespiClick 90 MCG (9 sources) ProAir RespiClic k 90 MCG 2 inhalations every 4 to 6 hours as needed Active SITagliptin 50 mg oral tablet (12 sources) Dipeptidyl Peptidase 4 Inhibitor Januvia 50 MG tablet Take 50 mg by mouth. 0 Active tamsulosin hydrochloride 0.4 mg oral capsule (6 sources) alpha-Adrenergic Estuardo Start: 023 take 1 capsule by mouth every twenty-four hours Flomax 0.4 MG 1 capsule Orally Once a day for 30 days Feb, Active take 1 capsule by mo ut every twenty-four hours in the morning tamsulosin (Flomax) 0.4 MG 24 hr capsule Take 0.4 mg by mouth in the morning. 0 Active Trelegy Ellipta 100-62.5-25 MCG/INH (2 sources) take 1 puff(s) by inhalation once daily Trelegy Ellipta 100-62.5-25 MCG/INH 1 puff Inhalation Once a day Active vitamin b12 1 mg oral tablet (3 sources) Vitamin B12 take 1 tablet by lynne th in the morning cyanocobalamin (Vitamin B-12) 1000 MCG tablet Take 1,000 mcg by mouth in the morning. 0 Active Vitamin B12 1000 MCG (9 sources) take 1 tablet by lynne th once daily Vitamin B12 1000 MCG 1 tablet Orally Once a day Active Completed/Discontinued Medications Medication Drug Class(es) Dates Sig (Normalized) Sig (Original) methylPREDNISolone (3 sources) Corticosteroid Start: 05-12-2023 End: 10-30-2023 methylPREDNISolone (Medrol Dospak) 4 MG tablets Indications: Right hip pain Follow schedule on package instructions 1 each 0 05/12/2023 10/30/2023 Discontinued (Other) Start: 05-12-2023 methylPREDNISo lone (Medrol Dospak) 4 MG tablets Indications: Right hip pain Follow schedule on package instructions 1 each 0 05/12/2023 Active spironolactone 25 mg oral tablet (5 sources) Aldosterone Antagonist take 1 tablet by mouth every twenty-four hours Spironolactone 25 MG 1 tablet Orally Once a day Not-Taking take 1 tablet by lynne th every twenty-four hours Spironolactone 50 MG 1 tablet Orally Onc e a day Active Problems Active Problems Problem Classification Problem Date Documented Date Episodic/Chronic Administrative/social admission (1 source) Dietary counseling and surveillance; Translations: [DIETARY COUNSELING AND SURVEILLANCE] Onset: 12-29-2022 Episodic Chronic kidney disease (18 sources) Chronic renal failure; Translations: [Chronic kidney disease, unspecified] Onset: 05-05-2021 10-30-2023 Chronic Chronic obstructive pulmonary disease and bronchiectasis (2 sources) Chronic obstructive lung disease; Translations: [Chronic obstructive pulmonary disease, unspecified] Onset: 10-30-2023 10-30-2023 Chronic Congestive heart failure; nonhypertensive (10 sources) Chronic diastolic (congestive) heart failure; Translations: [Chronic heart failure co-occurrent with normal ejection fraction] Onset: 04-08-2022 Chronic Coronary atherosclerosis and other heart disease (6 sources) Coronary arteriosclerosis; Translations: [Atherosclerotic heart disease of [place] coronary artery without angina pectoris] Onset: 04-23-2023 10-30-2023 Chronic Deficiency and other anemia (10 sources) Anemia, unspecified; Translations: [ANEMIA UNSPECIFIED] Onset: 01-22-2022 Resolved: 04-02-2022 Episodic Diabetes mellitus with complications (8 sources) Type 2 diabetes mellitus with other diabetic kidney complication; Translations: [Type 2 diabetes mellitus] Onset: 12-23-2022 Chronic Disorders of lipid metabolism (5 sources) Mixed hyperlipidemia; Translations: [Dyslipidemia] Onset: 12-29-2022 10-30-2023 Chronic Esophageal disorders (4 sources) Gastroesophageal reflux disease without esophagitis; Translations: [Gastro-esophageal reflux disease without esophagitis] Onset: 10-30-2023 10-30-2023 Chronic Essential hypertension (20 sources) Essential hypertension; Translations: [Essential (primary) hypertension] Onset: 01-14-2022 Resolved: 04-02-2022 Chronic Heart valve disorders (10 sources) Nonrheumatic aortic (valve) stenosis; Translations: [Aortic stenosis, non-rheumatic ] Onset: 03-08-2022 Chronic Hyperplasia of prostate (6 sources) Lower urinary tract symptoms due to benign prostatic hypertrophy; Translations: [Benign prostatic hyperplasia with lower urinary tract symptoms] Chronic Hypertension with complications and secondary hypertension (5 sources) Hypertensive chronic kidney disease with stage 1 through stage 4 chronic kidney disease, or unspecified chronic kidney disease; Translations: [HTN CKD W/STAGE 1-4 CKD/UNS CKD] Onset: 03-25-2022 Chronic Mycoses (4 sources) Candidiasis of skin; Translations: [Candidiasis of skin and nail] Onset: 10-30-2023 10-30-2023 Episodic Nutritional deficiencies (8 sources) Iron deficiency; Translations: [Cobalamin deficiency] Onset: 01-22-2022 Resolved: 04-02-2022 Episodic Occlusion or stenosis of precerebral arteries (2 sources) Occlusion and stenosis of bilateral carotid arteries; Translations: [Occlusion and stenosis of bilateral carotid arteries] Onset: 04-23-2023 Chronic Osteoarthritis (4 sources) Bilateral shoulder osteoarthritis; Translations: [Primary osteoarthritis, right shoulder] Onset: 10-30-2023 10-30-2023 Chronic Other diseases of kidney and ureters (3 sources) Acquired obstructive defect of renal pelvis; Translations: [Other obstructive and reflux uropathy] Episodic Other diseases of kidney and ureters (2 sources) Other obstructive and reflux uropathy Episodic Other nutritional; endocrine; and metabolic disorders (7 sources) Hypocalcemia; Translations: [Hypocalcemia] Chronic Other nutritional; endocrine; and metabolic disorders (6 sources) Hypocalcemia; Translations: [HYPOCALCEMIA] Onset: 01-22-2022 Resolved: 04-02-2022 Chronic Other nutritional; endocrine; and metabolic disorders (4 sources) Hypomagnesemia; Translations: [Hypomagnesemia] Chronic Other nutritional; endocrine; and metabolic disorders (6 sources) Hypomagnesemia; Translations: [HYPOMAGNESEMIA] Onset: 11-11-2022 Chronic Peripheral and visceral atherosclerosis (12 sources) Peripheral vascular disease; Translations: [Peripheral vascular disease, unspecified] Onset: 06-11-2021 10-30-2023 Chronic Residual codes; unclassified (7 sources) Localized edema; Translations: [LOCALIZED EDEMA] Onset: 01-14-2022 Resolved: 04-02-2022 Episodic Past or Other Problems Problem Classification Problem Date Documented Da te Episodic/Chronic Cardiac dysrhythmias (4 sources) Palpitations; Translations: [PALPITATIONS] Onset: 3 Episodic Chronic kidney disease (10 sources) Chronic kidney disease; Translations: [CHRONIC KIDNEY DISEASE STAGE 3B] Onset: 2 Resolved: 2 Other diseases of veins and lymphatics (2 sources) Venous insufficiency of leg; Translations: [Venous insufficiency (chronic) (peripheral)] Onset: 0 10-30-2023 Episodic Phlebitis; thrombophlebitis and thromboembolism (8 sources) Phlebitis and thrombophlebitis of superficial vessels of left lower extremity; Translations: [Phlebitis and thrombophlebitis of superficial vessels of right lower extremity] Onset: 2 Episodic Varicose veins of lower extremity (4 sources) Varicose veins of bilateral lower extremities with pain; Translations: [VARICOSE VNS REYNA LOW EXTREM W/PAIN] Onset: 2 Episodic Results Test Name Value Interpretation Reference Range Facility Office Visiton 11-03-2023 Follow-up visit [id number] Todd Suarez 1935 M Date Provider Department Center 11/03/2023 JESSY ARAGON MAG [facility] Family History Problem Relation Age of Onset No Known Problems Mother No Known Problems Father Family Status - Relation Status Age at Mother Father Level of Service:61361 [place] OFFICE/OUTPATIENT ESTABLISHED LOW MDM 20 MIN Normal [facility] Office Visiton 04-23-2023 Follow-up visit [id number] Todd Suarez 1935 M Date Provider Department Center 04/23/2023 [id number] DOUGLAS MAG [facility] Family History Problem Relation Age of Onset No Known Problems Mother No Known Problems Father Family Status - Relation Status Age at Mother Father Level of Service:88724 [place] OFFICE/OUTPATIENT ESTABLISHED MOD MDM 30-39 MIN Reason for Visit and Comments: Follow-up [[id number]] - Pt is here for f/u labs, CXR, stress test, and echo Normal [facility] Office Visiton 03-10-2023 Follow-up visit [id number] Todd Suarez 1935 M Date Provider Department Center 03/10/2023 Garrick-JESSY LAMAS [facility] Family History Problem Relation Age of Onset No Known Problems Mother No Known Problems Father Family Status - Relation Status Age at Mother Father Level of Service:76597 [place] OFFICE/OUTPATIENT ESTABLISHED HIGH MDM 40-54 MIN Normal [facility] Orders Onlyon 03-10-2023 Orders Only [id number] Todd Suarez 1935 M Date Provider Department Center 03/10/2023 DEEPIKA GENTILE CARD [facility] Family History Problem Relation Age of Onset No Known Problems Mother No Known Problems Father Family Status - Relation Status Age at Mother Father Normal [facility] PTH INTACTon 02-12-2023 PTH, Intact 28 pg/mL Normal 15-[address] [facility] Comment on above: Performed By: #### B MP, BNP #### [facility] [address] [place] [address] Dr. Mary Kay Vaca FERRITINon 02-11-2023 Ferritin [Mass/Vol] 685.0 ng/mL Critically high 26.0-388.0 [facility] Comment on above: Performed By: #### B MP, BNP #### [facility] [address] [place] [address] Dr. Mary Kay Vaca HEMOGRAM AND PLATELon 2022 Hematocrit (Bld) [Volume fraction] 37.8 % Critically low 42.0-54.0 [facility] Comment on above: Performed By: #### R ENAL, LIPID #### [facility] [address] [place] [address] Dr. Mary Kay Vaca Hemoglobin (Bld) [Mass/Vol] 12.8 g/dL Critically low 14.0-18.0 [facility] Comment on above: Performed By: #### R ENAL, LIPID #### [facility] [address] [address] [address] Mary Kay Vaca MCH (RBC) [Entitic mass] 32.5 pg Normal 25.9-34.[address] [facility] Comment on above: Performed By: #### R ENAL, LIPID #### [facility] [address] [place] [address] Dr. Mary Kay Vaca MCHC (RBC) [Mass/Vol] 33.9 g/dL Normal 29.9-35.[address] [facility] Comment on above: Performed By: #### R ENAL, LIPID #### [facility] [address] [place] [address] Dr. Mary Kay Vaca MCV (RBC) [Entitic vol] 95.9 fL Critically high 80.0-94.[address] [facility] Comment on above: Performed By: #### R ENAL, LIPID #### [facility] [address] [place] [address] Dr. Mary Kay Vaca PLT 163 103/ul Normal 150-450 [facility] Comment on above: Performed By: #### R ENAL, LIPID #### [facility] [address] [place] [address] Dr. Mary Kay Vaca RBC 3.94 106/ul Critically low 4.70-6.10 [facility] Comment on above: Performed By: #### R ENAL, LIPID #### [facility] [address] [place] [address] Dr. Mary Kay Vaca WBC 6.3 103/ul Normal 4.0-11.0 [facility] Comment on above: Performed By: #### R ENAL, LIPID #### [facility] [address] [place] [address] Dr. Mary Kay Vaca IRON AND TIBCon 02-11-2023 % SATURATION 40.8 % Normal [facility] Comment on above: Performed By: #### B MP, BNP #### [facility] [address] [place] [address] Dr. Mary Kay Vaca Iron [Mass/Vol] 127.0 ug/dL Normal 65.0-175.0 [facility] Comment on above: Performed By: #### B MP, BNP #### [facility] [address] [place] [address] Dr. Mary Kay Vaca TIBC DIRECT 311.0 ug/dL Normal 250.0-450.0 [facility] Comment on above: Performed By: #### B MP, BNP #### [facility] [address] [place] [address] Dr. Mary Kay Vaca MAGNESIUMon 02-11-2023 Magnesium [Mass/Vol] 1.7 mg/dL Critically low 1.8-2.[address] [facility] Comment on above: Performed By: #### R ENAL, LIPID #### [facility] [address] [place] [address] Dr. Mary Kay Vaca PHOSPHORUSon 02-11-2023 Phosphate [Mass/Vol] 3.1 mg/dL Normal 2.6-4.[address] [facility] Comment on above: Performed By: #### R ENAL, LIPID #### [facility] [address] [place] [address] Dr. Mary Kay Vaca PROF 14(COMP METB)on 023 Albumin [Mass/Vol] 3.7 g/dL Normal 3.4-5.0 [facility] Comment on above: Performed By: #### R ENAL, LIPID #### [facility] [address] [place] [address] Dr. Mary Kay Vaca Albumin/Globulin [Mass ratio] 0.8 {ratio} Normal [facility] Comment on above: Performed By: #### R ENAL, LIPID #### [facility] [address] [place] [address] Dr. Mary Kay Vaca ALP [Catalytic activity/Vol] 178 U/L Critically high 46-[address] [facility] Comment on above: Performed By: #### R ENAL, LIPID #### [facility] [address] [place] [address] Dr. Mary Kay Vaca ALT [Catalytic activity/Vol] 72 U/L Critically high 16-[address] [facility] Comment on above: Performed By: #### R ENAL, LIPID #### [facility] [address] [address] [address] Mary Kay Vaca Anion gap [Moles/Vol] 16.6 mmol/L Normal [facility] Comment on above: Performed By: #### R ENAL, LIPID #### [facility] [address] [address] [address] Mary Kay Vaca AST [Catalytic activity/Vol] 53 U/L Critically high 15-[address] [facility] Comment on above: Performed By: #### R ENAL, LIPID #### [facility] [address] [address] [address] Mary Kay Vaca Bilirubin [Mass/Vol] 0.5 mg/dL Normal 0.2-1.[address] [facility] Comment on above: Performed By: #### R ENAL, LIPID #### [facility] [address] [address] [address] Mary Kay Vaca Calcium [Mass/Vol] 9.4 mg/dL Normal 8.5-10.1 [facility] Comment on above: Performed By: #### R ENAL, LIPID #### [facility] [address] [address] [address] Mary Kay Vaca Chloride [Moles/Vol] 102 mmol/L Normal 98-[address] [facility] Comment on above: Performed By: #### R ENAL, LIPID #### [facility] [address] [address] [address] Mary Kay Vaca CO2 [Moles/Vol] 26.6 mmol/L Normal 21.0-32.0 [facility] Comment on above: Performed By: #### R ENAL, LIPID #### [facility] [address] [address] [address] Mary Kay Vaca Creatinine [Mass/Vol] 1.72 mg/dL Critically high 0.70-1.[address] [facility] Comment on above: Performed By: #### R ENAL, LIPID #### [facility] [address] [address] [address] Mary Kay Vaca EGFR-AF MAURITANIAN 46 mL/min/1.73m2 Critically low >=[address] [facility] Comment on above: Performed By: #### R ENAL, LIPID #### [facility] [address] [place] [address] Dr. Mary Kay Vaca EGFR-NON AF MAURITANIAN 38 mL/min/1.73m2 Critically low >=[address] [facility] Comment on above: Performed By: #### R ENAL, LIPID #### [facility] [address] [place] [address] Dr. Mary Kay Vaca Globulin (S) [Mass/Vol] 4.9 g/dL Normal [facility] Comment on above: Performed By: #### R ENAL, LIPID #### [facility] [address] [place] [address] Dr. Mary Kay Vaca Glucose [Mass/Vol] 205 mg/dL Critically high 74-106 [facility] Comment on above: Performed By: #### R ENAL, LIPID #### [facility] [address] [place] [address] Dr. Mary Kay Vaca Potassium [Moles/Vol] 4.2 mmol/L Normal 3.5-5.[address] [facility] Comment on above: Performed By: #### R ENAL, LIPID #### [facility] [address] [place] [address] Dr. Mary Kay Vaca Protein [Mass/Vol] 8.6 g/dL Critically high 6.4-8.2 [facility] Comment on above: Performed By: #### R ENAL, LIPID #### [facility] [address] [place] [address] Dr. Mary Kay Vaca Sodium [Moles/Vol] 141 mmol/L Normal 136-145 [facility] Comment on above: Performed By: #### R ENAL, LIPID #### [facility] [address] [place] [address] Dr. Mary Kay Vaca Urea nitrogen [Mass/Vol] 36.0 mg/dL Critically high 7.0-18.[address] [facility] Comment on above: Performed By: #### R ENAL, LIPID #### [facility] [address] [place] [address] Dr. Mary Kay Vaca Urea nitrogen/Creatinine [Mass ratio] 20.9 mg/mg Normal [facility] Comment on above: Performed By: #### R ENAL, LIPID #### [facility] [address] [address] [address] Mary Kay Vaca UA RANDOMon 02-11-2023 Bilirubin Ql (U) Negative Normal NEGATIVE [facility] Comment on above: Performed By: #### U A #### [facility] [address] [address] [address] Mary Kay Vaca Clarity (U) CLEAR Normal CLEAR [facility] Comment on above: Performed By: #### U A #### [facility] [address] [place] [address] Dr. Mary Kay Vaca Color (U) LT. YELLOW Normal YELLOW [facility] Comment on above: Performed By: #### U A #### [facility] [address] [place] [address] Dr. Mary Kay Vaca Glucose Ql (U) Negative Normal NEGATIVE [facility] Comment on above: Performed By: #### U A #### [facility] [address] [address] [address] Mary Kay Vaca Hemoglobin Ql (U) Negative Normal NEGATIVE [facility] Comment on above: Performed By: #### U A #### [facility] [address] [place] [address] Dr. Mary Kay Vaca Ketones Ql (U) Negative Normal NEGATIVE [facility] Comment on above: Performed By: #### U A #### [facility] [address] [place] [address] Dr. Mary Kay Vaca LEUKOCYTES Negative Normal NEGATIVE [facility] Comment on above: Performed By: #### U A #### [facility] [address] [place] [address] Dr. Mary Kay Vaca Nitrite Ql (U) Negative Normal NEGATIVE [facility] Comment on above: Performed By: #### U A #### [facility] [address] [place] [address] Dr. Mary Kay Vaca pH (U) 6.0 [pH] Normal 5-[address] [facility] Comment on above: Performed By: #### U A #### [facility] [address] [place] [address] Dr. Mary Kay Vaca SPEC GRAVITY 1.010 Normal 1.005-<=1.025 [facility] Comment on above: Performed By: #### U A #### [facility] [address] [place] [address] Dr. Mary Kay Vaca UA PROTEIN Negative Normal NEGATIVE/ TRACE [facility] Comment on above: Performed By: #### U A #### [facility] [address] [place] [address] Dr. Mary Kay Vaca Urobilinogen Qn (U) 0.2 {Ric'U}/dL Normal 0.2 - 1. 0 [facility] Comment on above: Performed By: #### U A #### [facility] [address] [place] [address] Dr. Mary Kay Vaca URIC ACID SERUMon 02-11-2023 Urate [Mass/Vol] 5.7 mg/dL Normal 3.5-7.2 [facility] Comment on above: Performed By: #### R ENAL, LIPID #### [facility] [address] [place] [address] Dr. Mary Kay Vaca URINE T PROTEIN CREAT RATIOo n 02-11-2023 UR TOTAL PROTEIN <6.0 Normal <=12.0 [facility] Comment on above: Performed By: #### B MP, BNP #### [facility] [address] [place] [address] Dr. Mary Kay Vaca URINE CREAT <13.00 Critically low 20.00-300.00 [facility] Comment on above: Performed By: #### B MP, BNP #### [facility] [address] [place] [address] Dr. Mary Kay Vaca VITAMIN D 25 OHon 02-11-2023 VIT D 25-OH 35.9 ng/mL Normal [facility] Comment on above: Performed By: #### B MP, BNP #### [facility] [address] [place] [address] Dr. Mary Kay Vaca VIT D RANGES SEE BELOW Normal [facility] Comment on above: Result Comment: <20 ng/mL Vit D deficient 20 - <30 ng/mL Vit D insufficient 30 - 100 ng/mL Vit D sufficient >100 ng/mL Potential Toxicity Performed By: #### B MP, BNP #### [facility] [address] [place] [address] Dr. Mary Kay Vaca C-PEPTIDE, SERUMon C-Peptide, Serum 9.0 ng/mL Critically high 1.1-4.[address] [facility] Comment on above: Result Comment: C-Pe ptide reference interval is for fasting patients. Performed By: #### B MP, BNP #### [facility] [address] [place] [address] Dr. Mary Kay Vaca LIPID PROFILEon 12-23-2022 CHOL-HDL RATIO NORM SEE BELOW Normal [facility] Comment on above: Result Comment: 3.3 - 4.4 LOW RISK 4.4 - 7.1 AVERAGE RISK 7.1 - 11.0 MODERATE RISK >11.0 HIGH RISK Performed By: #### R ENAL, LIPID #### [facility] [address] [place] [address] Dr. Mary Kay Vaca Cholesterol [Mass/Vol] 174 mg/dL Normal <=[address] [facility] Comment on above: Performed By: #### R ENAL, LIPID #### [facility] [address] [place] [address] Dr. Mary Kay Vaca Cholesterol in HDL [Mass/Vol] 61 mg/dL Critically high 40-[address] [facility] Comment on above: Performed By: #### R ENAL, LIPID #### [facility] [address] [address] [address] Mary Kay Vaca Cholesterol in LDL [Mass/Vol] 87.0 mg/dL Normal [facility] Comment on above: Performed By: #### R ENAL, LIPID #### [facility] [address] [place] [address] Dr. Mary Kay Vaca Cholesterol.total/Ch olesterol in HDL [Mass ratio] 2.9 {ratio} Normal [facility] Comment on above: Performed By: #### R ENAL, LIPID #### [facility] [address] [address] [address] Mary Kay Vaca HDL NORMAL > or = 60 mg/dl - LO W CARDIOVASCULAR RISK <40 mg/dl - HIGH CARDIOVASCULAR RISK Normal [facility] Comment on above: Performed By: #### R ENAL, LIPID #### [facility] [address] [address] [address] Mary Kay Vaca LDL CALC NORMAL SEE BELOW Normal [facility] Comment on above: Result Comment: <100 mg/dl OPTIMAL 100 - 129 mg/dl NEAR OR ABOVE OPTIMAL 130 - 159 mg/dl BORDERLINE HIGH 160 - 189 mg/dl HIGH >190 mg/dl VERY HIGH Performed By: #### R ENDIMAS, LIPID #### [facility] [address] [place] [address] Dr. Mary Kay Vaca Triglyceride [Mass/Vol] 130 mg/dL Normal <=[address] [facility] Comment on above: Performed By: #### R ENDIMAS, LIPID #### [facility] [address] [address] [address] Mary Kay Vaca VLDL CALC 26.0 mg/dL Normal [facility] Comment on above: Performed By: #### R ENDIMAS, LIPID #### [facility] [address] [address] [address] Mary Kay Vaca MICROALB CREAT RATIO RANDOMo n 12-23-2022 mALB 2.2 mg/L Normal <=30.[address] [facility] Comment on above: Performed By: #### B MP, BNP #### [facility] [address] [place] [address] Dr. Mary Kay Vaca MALB CR RATIO RANGE SEE BELOW Normal [facility] Comment on above: Result Comment: NO M ICROALBUMINURIA 0-29 MG/G CLINICAL MICROALBUMINURIA 30-300 MG/G MACROALBUMINURIA >300 MG/G Performed By: #### B MP, BNP #### [facility] [address] [place] [address] Dr. Mary Kay Vaca URINE CREAT <13.00 Critically low 20.00-300.00 [facility] Comment on above: Performed By: #### B MP, BNP #### [facility] [address] [place] [address] Dr. Mary Kay Vaca RENAL FUNCTION PANELon 12-23 Albumin [Mass/Vol] 3.7 g/dL Normal 3.4-5.0 [facility] Comment on above: Performed By: #### R ENAL, LIPID #### [facility] [address] [place] [address] Dr. Mary Kay Vaca Calcium [Mass/Vol] 9.4 mg/dL Normal 8.5-10.1 [facility] Comment on above: Performed By: #### R ENAL, LIPID #### [facility] [address] [place] [address] Dr. Mary Kay Vaca Chloride [Moles/Vol] 107 mmol/L Normal 98-[address] [facility] Comment on above: Performed By: #### R ENAL, LIPID #### [facility] [address] [place] [address] Dr. Mary Kay Vaca CO2 [Moles/Vol] 27.0 mmol/L Normal 21.0-32.0 [facility] Comment on above: Performed By: #### R ENAL, LIPID #### [facility] [address] [place] [address] Dr. Mary Kay Vaca Creatinine [Mass/Vol] 1.46 mg/dL Critically high 0.70-1.[address] [facility] Comment on above: Performed By: #### R ENAL, LIPID #### [facility] [address] [place] [address] Dr. Mary Kay Vaca EGFR-AF MAURITANIAN 55 mL/min/1.73m2 Critically low >=60 [facility] Comment on above: Performed By: #### R ENAL, LIPID #### [facility] [address] [place] [address] Dr. Mary Kay Vaca EGFR-NON AF MAURITANIAN 46 mL/min/1.73m2 Critically low >=[address] [facility] Comment on above: Performed By: #### R ENAL, LIPID #### [facility] [address] [place] [address] Dr. Mary Kay Vaca Glucose [Mass/Vol] 163 mg/dL Critically high 74-106 [facility] Comment on above: Performed By: #### R ENDIMAS, LIPID #### [facility] [address] [place] [address] Dr. Mary Kay Vaca Phosphate [Mass/Vol] 2.6 mg/dL Normal 2.6-4.[address] [facility] Comment on above: Performed By: #### R ENDIMAS, LIPID #### [facility] [address] [address] [address] Mary Kay Vaca Potassium [Moles/Vol] 4.0 mmol/L Normal 3.5-5.[address] [facility] Comment on above: Performed By: #### R RERE, LIPID #### [facility] [address] [place] [address] Dr. Mary Kay Vaca Sodium [Moles/Vol] 145 mmol/L Normal 136-145 [facility] Comment on above: Performed By: #### R RERE, LIPID #### [facility] [address] [place] [address] Dr. Mary Kay Vaca Urea nitrogen [Mass/Vol] 32.0 mg/dL Critically high 7.0-18.[address] [facility] Comment on above: Performed By: #### R RERE, LIPID #### [facility] [address] [place] [address] Dr. Mary Kay Vaca MAGNESIUMon 11-11-2022 Magnesium [Mass/Vol] 1.4 mg/dL Critically low 1.8-2.[address] [facility] Comment on above: Performed By: #### R ENDIMAS, LIPID #### [facility] [address] [place] [address] Dr. Mary Kay Vaca Office Visiton 11-11-2022 Follow-up visit [id number] Todd Suarez 1935 M Date Provider Department Center 11/11/2022 SHIVA CARDOZA [facility] Family History Problem Relation Age of Onset No Known Problems Mother No Known Problems Father Family Status - Relation Status Age at Mother Father Level of Service:[address] [place] OFFICE/OUTPATIENT ESTABLISHED MOD MDM 30-39 MIN Reason for Visit and Comments: Follow-up [359447] - 6 month follow up Normal [facility] PROF CHEM 8 (BAS METB)on Anion gap [Moles/Vol] 13.7 mmol/L Normal [facility] Comment on above: Performed By: #### R ENAL, LIPID #### [facility] [address] [address] [address] Mary Kay Vaca Calcium [Mass/Vol] 9.8 mg/dL Normal 8.5-10.1 [facility] Comment on above: Performed By: #### R ENAL, LIPID #### [facility] [address] [address] [address] Mary Kay Vaca Chloride [Moles/Vol] 105 mmol/L Normal 98-[address] [facility] Comment on above: Performed By: #### R ENAL, LIPID #### [facility] [address] [address] [address] Mary Kay Vaca CO2 [Moles/Vol] 27.2 mmol/L Normal 21.0-32.0 [facility] Comment on above: Performed By: #### R ENAL, LIPID #### [facility] [address] [address] [address] Mary Kay Vaca Creatinine [Mass/Vol] 1.45 mg/dL Critically high 0.70-1.[address] [facility] Comment on above: Performed By: #### R ENAL, LIPID #### [facility] [address] [address] [address] Mary Kay Vaca EGFR-AF MAURITANIAN 56 mL/min/1.73m2 Critically low >=[address] [facility] Comment on above: Performed By: #### R ENAL, LIPID #### [facility] [address] [address] [address] Mary Kay Vaca EGFR-NON AF MAURITANIAN 46 mL/min/1.73m2 Critically low >=[address] [facility] Comment on above: Performed By: #### R ENAL, LIPID #### [facility] [address] [address] [address] Mary Kay Vaca Glucose [Mass/Vol] 234 mg/dL Critically high 74-106 [facility] Comment on above: Performed By: #### R ENAL, LIPID #### [facility] [address] [place] [address] Dr. Mary Kay Vaca Potassium [Moles/Vol] 3.9 mmol/L Normal 3.5-5.[address] [facility] Comment on above: Performed By: #### R ENAL, LIPID #### [facility] [address] [place] [address] Dr. Mary Kay Vaca Sodium [Moles/Vol] 142 mmol/L Normal 136-145 [facility] Comment on above: Performed By: #### R ENAL, LIPID #### [facility] [address] [place] [address] Dr. Mary Kay Vaca Urea nitrogen [Mass/Vol] 38.0 mg/dL Critically high 7.0-18.[address] [facility] Comment on above: Performed By: #### R ENDIMAS, LIPID #### [facility] [address] [place] [address] Dr. Mary Kay Vaca Urea nitrogen/Creatinine [Mass ratio] 26.2 mg/mg Normal [facility] Comment on above: Performed By: #### R ENDIMAS, LIPID #### [facility] [address] [place] [address] Dr. Mary Kay Vaca PTH INTACTon 09-18-2022 PTH, Intact 39 pg/mL Normal 15-[address] [facility] Comment on above: Performed By: #### R ENAL, LIPID #### [facility] [address] [place] [address] Dr. Mary Kay Vaca FERRITINon 09-17-2022 Ferritin [Mass/Vol] 703.0 ng/mL Critically high 26.0-388.[address] [facility] Comment on above: Performed By: #### B MP, BNP #### [facility] [address] [place] [address] Dr. Mary Kay Vaca HEMOGRAM AND PLATELon 2022 Hematocrit (Bld) [Volume fraction] 37.2 % Critically low 42.0-54.[address] [facility] Comment on above: Performed By: #### R ENDIMAS, LIPID #### [facility] [address] [address] [address] Mary Kay Vaca Hemoglobin (Bld) [Mass/Vol] 12.6 g/dL Critically low 14.0-18.[address] [facility] Comment on above: Performed By: #### R ENAL, LIPID #### [facility] [address] [place] [address] Dr. Mary Kay Vaca MCH (RBC) [Entitic mass] 32.7 pg Normal 25.9-34.[address] [facility] Comment on above: Performed By: #### R ENAL, LIPID #### [facility] [address] [address] [address] Mary Kay Vaca MCHC (RBC) [Mass/Vol] 33.9 g/dL Normal 29.9-35.[address] [facility] Comment on above: Performed By: #### R ENAL, LIPID #### [facility] [address] [place] [address] Dr. Mary Kay Vaca MCV (RBC) [Entitic vol] 96.6 fL Critically high 80.0-94.[address] [facility] Comment on above: Performed By: #### R ENAL, LIPID #### [facility] [address] [place] [address] Dr. Mary Kay Vaca PLT 172 103/ul Normal 150-450 [facility] Comment on above: Performed By: #### R ENAL, LIPID #### [facility] [address] [place] [address] Dr. Mary Kay Vaca RBC 3.85 106/ul Critically low 4.70-6.10 [facility] Comment on above: Performed By: #### R ENAL, LIPID #### [facility] [address] [place] [address] Dr. Mary Kay Vaca WBC 6.8 103/ul Normal 4.0-11.0 [facility] Comment on above: Performed By: #### R ENAL, LIPID #### [facility] [address] [place] [address] Dr. Mary Kay Vaca IRON AND TIBCon 09-17-2022 % SATURATION 38.9 % Normal [facility] Comment on above: Performed By: #### B MP, BNP #### [facility] [address] [address] [address] Mary Kay Vaca Iron [Mass/Vol] 121.0 ug/dL Normal 65.0-175.0 [facility] Comment on above: Performed By: #### B MP, BNP #### [facility] [address] [address] [address] Mary Kay Vaca TIBC DIRECT 311.0 ug/dL Normal 250.0-450.0 [facility] Comment on above: Performed By: #### B MP, BNP #### [facility] [address] [place] [address] Dr. Mary Kay aVca MAGNESIUMon 09-17-2022 Magnesium [Mass/Vol] 1.6 mg/dL Critically low 1.8-2.[address] [facility] Comment on above: Performed By: #### C MP, MG, URIC #### [facility] [address] [place] [address] Dr. Mary Kay Vaca PROF 14(COMP METB)on 023 Albumin [Mass/Vol] 4.0 g/dL Normal 3.4-5.0 [facility] Comment on above: Performed By: #### C MP, MG, URIC #### [facility] [address] [place] [address] Dr. Mary Kay Vaca Albumin/Globulin [Mass ratio] 0.9 {ratio} Normal [facility] Comment on above: Performed By: #### C MP, MG, URIC #### [facility] [address] [place] [address] Dr. Mary Kay Vaca ALP [Catalytic activity/Vol] 164 U/L Critically high 46-116 [facility] Comment on above: Performed By: #### C MP, MG, URIC #### [facility] [address] [place] [address] Dr. Mary Kay Vaca ALT [Catalytic activity/Vol] 82 U/L Critically high 16-[address] [facility] Comment on above: Performed By: #### C MP, MG, URIC #### [facility] [address] [address] [address] Mary Kay Vaca Anion gap [Moles/Vol] 12.7 mmol/L Normal [facility] Comment on above: Performed By: #### C MP, MG, URIC #### [facility] [address] [address] [address] Mary Kay Vaca AST [Catalytic activity/Vol] 61 U/L Critically high 15-[address] [facility] Comment on above: Performed By: #### C MP, MG, URIC #### [facility] [address] [place] [address] Dr. Mary Kay Vaca Bilirubin [Mass/Vol] 0.5 mg/dL Normal 0.2-1.[address] [facility] Comment on above: Performed By: #### C MP, MG, URIC #### [facility] [address] [place] [address] Dr. Mary Kay Vaca Calcium [Mass/Vol] 9.7 mg/dL Normal 8.5-10.1 [facility] Comment on above: Performed By: #### C MP, MG, URIC #### [facility] [address] [place] [address] Dr. Mary Kay Vaca Chloride [Moles/Vol] 100 mmol/L Normal 98-[address] [facility] Comment on above: Performed By: #### C MP, MG, URIC #### [facility] [address] [place] [address] Dr. Mary Kay Vaca CO2 [Moles/Vol] 30.4 mmol/L Normal 21.0-32.0 [facility] Comment on above: Performed By: #### C MP, MG, URIC #### [facility] [address] [place] [address] Dr. Mary Kay Vaca Creatinine [Mass/Vol] 1.30 mg/dL Normal 0.70-1.[address] [facility] Comment on above: Performed By: #### C MP, MG, URIC #### [facility] [address] [place] [address] Dr. Mary Kay Vaca EGFR-AF MAURITANIAN >60 Normal >=60 [facility] Comment on above: Performed By: #### C MP, MG, URIC #### [facility] [address] [address] [address] Mary Kay Vaca EGFR-NON AF MAURITANIAN 52 mL/min/1.73m2 Critically low >=[address] [facility] Comment on above: Performed By: #### C MP, MG, URIC #### [facility] [address] [place] [address] Dr. Mary Kay Vaca Globulin (S) [Mass/Vol] 4.7 g/dL Normal [facility] Comment on above: Performed By: #### C MP, MG, URIC #### [facility] [address] [place] [address] Dr. Mary Kay Vaca Glucose [Mass/Vol] 193 mg/dL Critically high 74-106 [facility] Comment on above: Performed By: #### C MP, MG, URIC #### [facility] [address] [place] [address] Dr. Mary Kay Vaca Potassium [Moles/Vol] 4.1 mmol/L Normal 3.5-5.[address] [facility] Comment on above: Performed By: #### C MP, MG, URIC #### [facility] [address] [place] [address] Dr. Mary Kay Vaca Protein [Mass/Vol] 8.7 g/dL Critically high 6.4-8.2 [facility] Comment on above: Performed By: #### C MP, MG, URIC #### [facility] [address] [place] [address] Dr. Mary Kay Vaca Sodium [Moles/Vol] 139 mmol/L Normal 136-145 [facility] Comment on above: Performed By: #### C MP, MG, URIC #### [facility] [address] [place] [address] Dr. Mary Kay Vaca Urea nitrogen [Mass/Vol] 33.0 mg/dL Critically high 7.0-18.[address] [facility] Comment on above: Performed By: #### C MP, MG, URIC #### [facility] [address] [place] [address] Dr. Mary Kay Vaca Urea nitrogen/Creatinine [Mass ratio] 25.4 mg/mg Normal [facility] Comment on above: Performed By: #### C MP, MG, URIC #### [facility] [address] [place] [address] Dr. Mary Kay Vaca UA RANDOMon 09-17-2022 Bilirubin Ql (U) Negative Normal NEGATIVE [facility] Comment on above: Performed By: #### B MP, BNP #### [facility] [address] [place] [address] Dr. Mary Kay Vaca Clarity (U) CLEAR Normal CLEAR [facility] Comment on above: Performed By: #### B MP, BNP #### [facility] [address] [place] [address] Dr. Mary Kay Vaca Color (U) LT. YELLOW Normal YELLOW [facility] Comment on above: Performed By: #### B MP, BNP #### [facility] [address] [place] [address] Dr. Mary Kay Vaca Glucose Ql (U) 100 mg/dl Abnormal NEGATIVE [facility] Comment on above: Performed By: #### B MP, BNP #### [facility] [address] [place] [address] Dr. Mary Kay Vaca Hemoglobin Ql (U) TRACE-LYSED Abnormal NEGATIVE [facility] Comment on above: Performed By: #### B MP, BNP #### [facility] [address] [place] [address] Dr. Mary Kay Vaca Ketones Ql (U) Negative Normal NEGATIVE [facility] Comment on above: Performed By: #### B MP, BNP #### [facility] [address] [place] [address] Dr. Mary Kay Vaca LEUKOCYTES Negative Normal NEGATIVE [facility] Comment on above: Performed By: #### B MP, BNP #### [facility] [address] [place] [address] Dr. Mary Kay Vaca Nitrite Ql (U) Negative Normal NEGATIVE [facility] Comment on above: Performed By: #### B MP, BNP #### [facility] [address] [place] [address] Dr. Mary Kay Vaca pH (U) 7.0 [pH] Normal 5-9 [facility] Comment on above: Performed By: #### B MP, BNP #### [facility] [address] [place] [address] Dr. Mary Kay Vaca SPEC GRAVITY 1.010 Normal 1.005-<=1.025 [facility] Comment on above: Performed By: #### B MP, BNP #### [facility] [address] [place] [address] Dr. Mary Kay Vaca UA PROTEIN Negative Normal NEGATIVE/ TRACE [facility] Comment on above: Performed By: #### B MP, BNP #### [facility] [address] [place] [address] Dr. Mary Kay Vaca Urobilinogen Qn (U) 0.2 {Ric'U}/dL Normal 0.2 - 1. [address] [facility] Comment on above: Performed By: #### B MP, BNP #### [facility] [address] [place] [address] Dr. Mary Kay Vaca URIC ACID SERUMon 09-17-2022 Urate [Mass/Vol] 4.8 mg/dL Normal 3.5-7.2 [facility] Comment on above: Performed By: #### C MP, MG, URIC #### [facility] [address] [place] [address] Dr. Mary Kay Vaca URINE T PROTEIN CREAT RATIOo n 09-17-2022 Protein (U) [Mass/Vol] 19.9 mg/dL Critically high <=12.[address] [facility] Comment on above: Performed By: #### R ENAL, LIPID #### [facility] [address] [place] [address] Dr. Mary Kay Vaca UR PROT CREAT RAT 1.31 Normal [facility] Comment on above: Performed By: #### R ENAL, LIPID #### [facility] [address] [place] [address] Dr. Mary Kay Vaca URINE CREAT 15.14 mg/dL Critically low 20.00-300.00 [facility] Comment on above: Performed By: #### R ENAL, LIPID #### [facility] [address] [address] [address] Mary Kay Vaca VIT B12 AND FOLATEon 023 Cobalamin (Vitamin B12) [Mass/Vol] 1181.0 pg/mL Critically high 193.0-986.[address] [facility] Comment on above: Performed By: #### B MP, BNP #### [facility] [address] [address] [address] Mary Kay Vaca FOLATE 9.90 ng/mL Normal 8.60-58.[address] [facility] Comment on above: Performed By: #### B MP, BNP #### [facility] [address] [address] [address] Mary Kay Vaca VITAMIN D 25 OHon 09-17-2022 VIT D 25-OH 41.7 ng/mL Normal [facility] Comment on above: Performed By: #### C MP, MG, URIC #### [facility] [address] [address] [address] Mary Kay Vaca VIT D RANGES SEE BELOW Normal [facility] Comment on above: Result Comment: <20 ng/mL Vit D deficient 20 - <30 ng/mL Vit D insufficient 30 - 100 ng/mL Vit D sufficient >100 ng/mL Potential Toxicity Performed By: #### C MP, MG, URIC #### [facility] [address] [place] [address] Dr. Mary Kay Vaca VC CONSULT FOLLOWUPon 2021 VC CONSULT FOLLOWUP Patient: TDOD SUAREZEunice Exam Date: 07/30/2022 : 1935 Gender:M Ordering : DR ALVA MAI M.D. Admission #: [id number] Family : Order #: [id number] CLICK HERE TO VIEW EXAM RADIOLOGY REPORT PROCEDURE: VEIN CENTER CONSULTATION FOLLOWUP VEIN CENTER - OFFICE VISIT FOLLOW UP COMPARISON: VC CONSULT FOLLOWUP, 07/09/2022. VC CONSULT FOLLOWUP, 03/12/2022. PROGRESS NOTES: The patient reports no significant pain following micro foam chemical ablation of the left leg. The patient does continue to wear a thigh-high compression stocking as has leg feels better without applied period patient up car oral analgesics. The patient has followed our recommendations to walk 20-30 minutes once or twice per day since the procedure. The patient reports significant improvement in his initial presenting symptoms. Physical exam demonstrates several small areas of bruising related to injection. No areas of erythema or warmth to suggest cellulitis or thrombophlebitis. No active ulceration Review of the ultrasound performed the same day demonstrates occlusive thrombus extending throughout the treated left leg varicose veins. No deep vein thrombus. No significant incompetent residual varicose veins remain. The patient treatments are now complete. The patient did not want treatment of reticular and spider veins. IMPRESSION: 1. 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 Persistent spider and reticular veins PLAN: The patient's treatment is now complete. Consider follow-up in 2-3 years Nurse notes, history and physical were reviewed and confirmed, see attached forms. The nurse was present throughout the physical exam and consultation Dictated by: Alva Mai MD on 07/30/2022 at 14:40 Approved by: Alva Mai MD on 07/30/2022 at 14:[address] [facility] VC EXT VENOUS LT LIMITEDon 1 09-29-2021 VC EXT VENOUS LT LIMITED Patient: TODD SUAREZ Exam Date: 07/30/2022 : 1935 Gender:M Ordering : DR ALVA MAI M.D. Admission #: [id number] Family : Order #: [id number] CLICK HERE TO VIEW EXAM RADIOLOGY REPORT PROCEDURE: VEIN CENTER EXTREMITY VENOUS LEFT LIMITED COMPARISON: None. INDICATIONS: Phlebitis of superficial veins of lower extremity I80.02 TECHNIQUE: Lower extremity simons scale and Duplex Doppler evaluation of the deep venous system from the inguinal ligament through the calf veins. FINDINGS: REGION: Left lower extremity. THROMBI: Negative for DVT. Varithena induced thrombus visualized at distal GSV, prox/med calf, med knee, and lat/distal thigh. COMPRESSIBILITY: Non-compressible segments. FLOW: Areas of no flow. OTHER: Patent varicose vein prox/med calf 2.6mm with 0.5s reflux. Patent varicose vein mid/ant calf 2.0mm with 0.5s reflux. Patent varicose vein mid/ant thigh 3.4mm with 0.5s reflux. *Exam performed in accordance with [facility] practice guidelines- Peripheral venous ultrasound, December 09, 2009. 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 No significant residual incompetent varicose veins are observed Dictated by: Alva Mai MD on 07/30/2022 at 14:25 Approved by: Alva Mai MD on 07/30/2022 at 14:[address] [facility] VC INJ FOAM SCLERO W US MLTI on 07-23-2022 VC INJ FOAM SCLERO W US MLTI Patient: TODD SUAREZ Exam Date: 07/23/2022 : 1935 Gender:M Ordering : DR ALVA MAI M.D. Admission #: [id number] Family : Order #: [id number] CLICK HERE TO VIEW EXAM RADIOLOGY REPORT PROCEDURE: VEIN CENTER INJECTION FOAM SCLEROSING SOLUTION WITH ULTRASOUND MULTIPLE VEINS COMPARISON: VC INJ FOAM SCLERO W US MLTI, 03/07/2022. 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 Ultrasound-guided microfoam chemical ablation with Varithena(r) 2. Intraoperative ultrasound guidance Physician: Alva Mai M.D. Anesthesia: None Indications for Procedure: 86-year-old male who presents with moderate left leg venous insufficiency, the patient failed conservative medical therapy including medical compression stockings, exercise and analgesics. The patient developed 3 areas ulceration along the medial proximal left lower leg. Multiple incompetent varicosities of the left leg. Duplex scan showed reflux and enlarged diameters up to 8 mm. The patient underwent informed consent including management options where the complications of infection, bleeding, pain, and skin injury were discussed. Particular attention was spent discussing thrombus extension and deep vein thrombosis as well as the possibility of pulmonary embolus and treatment with oral or injectable blood thinners. Procedure: The patient walked to the procedure room. All applicable staff donned appropriate apparel. A procedure timeout was performed to confirm correct patient, correct extremity, correct procedure, and correct room set-up including presence of all applicable supplies, devices, and drugs. A duplex ultrasound, performed by myself confirmed the location and incompetence of left leg varicose veins and their course marked on the skin together with the dilated tributaries. The extent of treatment of the vein and the associated varicosities was determined through ultrasound mapping. The patient was placed on the operating room table. The limb was prepped. The skin was punctured with a butterfly needle through the skin with the venous access needle and advanced under ultrasound guidance. The target limb was positioned at 45 degrees of elevation in relation to the torso utilizing a foam pad. The Varithena(r) canister was previous activated and the canister was primed and purged as required in the instructions for use. The following injections were made: 5 mL aliquot of Varithena(r) was drawn into a sterile syringe. Injection into the distal right great saphenous vein at the level of the distal lower leg. 5 mL aliquot of Varithena(r) was drawn into a sterile syringe. Injection into a 4 mm varicose vein anterior proximal left lower leg 5 mL aliquot of Varithena(r) was drawn into a sterile syringe. Injection into a 4 mm varicose vein lateral distal thigh. Varithena(r) was slowly administered at 0.5-1.0 cc/second with close observation by ultrasound of its course in the GSV and varicose veins. When Varithena(r) delivery arrived at approximately 3-5 cm from the SFJ, the area was then compressed to prevent flow into the common femoral vein. Further administration of Varithena(r) was stopped at this point and the treated GSV was observed for spasm with ultrasound over a period of 3-5 minutes. At this point, previously marked dilated incompetent tortuous Great Saphenous varicosities were treated using image guidance and direct puncture. A total volume of 13 mL of Varithena(r) was used. During administration of Varithena(r), the patient was asked to dorsiflex the ankle to limit flow of Varithena(r) into perforating veins. Once appropriate spasm had been confirmed in the treated veins, the vascular catheter was removed from the leg and light pressure was applied over the puncture site for hemostasis The common femoral and deep superficial veins were then evaluated for flow and compressibility prior to dressing placement. The lower extremity was kept elevated at 45 degrees above the horizontal and cording material was applied over the saphenous segments and tributaries to allow for eccentric compression over the target vessels including the targeted saphenous vein(s). A multilayer dressing was applied consisting of foam pads, coban and thigh-high 20-30 mm Hg compression elastic support hose were placed on the patient. The leg was lowered only after compression had been applied and the patient was immediately (more content not included)... Normal [facility] VC CONSULT FOLLOWUPon 2021 VC CONSULT FOLLOWUP Patient: TODD SUAREZ Exam Date: 07/09/2022 : 1935 Gender:M Ordering : DR ALVA MAI M.D. Admission #: [id number] Family : Order #: [id number] CLICK HERE TO VIEW EXAM RADIOLOGY REPORT PROCEDURE: VEIN CENTER CONSULTATION FOLLOWUP VEIN CENTER - OFFICE VISIT FOLLOW UP COMPARISON: VC CONSULT FOLLOWUP, 03/12/2022. VC CONSULT FOLLOWUP, 03/01/2022. PROGRESS NOTES: The patient reports pain, swelling and varicose veins in the left leg. The patient's right leg symptoms have significantly improved with increase in relative pain and swelling of the left leg. Physical exam demonstrates moderate scattered varicose reticular and spider veins most significant along the medial thigh knee and lower leg. Review of the ultrasound performed the same day demonstrates moderate venous insufficiency and dilatation of the left great saphenous and anterior accessory saphenous veins with chronic thrombus in the small saphenous vein. Associated branch saphenous tributaries are noted. The patient inquired about skipping over intravenous laser ablation due to the pain of the procedure and asked if he could have foam ablation instead, I did inform him that micro foam chemical ablation was approved for truncal veins if he would like to take that option. IMPRESSION: 1. Moderate left leg venous insufficiency PLAN: 1. Micro foam chemical ablation left leg great saphenous vein, anterior accessory saphenous vein and associated tributaries 2. Injection sclerotherapy of reticular and spider veins Nurse notes, history and physical were reviewed and confirmed, see attached forms. The nurse was present throughout the physical exam and consultation Dictated by: Alva Mai MD on 07/09/2022 at 13:59 Approved by: Alva Mai MD on 07/09/2022 at 14:02 Normal [facility] VC VENOUS REFLUX LT LMTon VC VENOUS REFLUX LT LMT Patient: TODD SUAREZ Exam Date: 07/09/2022 : 1935 Gender:M Ordering : DR ALVA MAI M.D. Admission #: [id number] Family : Order #: [id number] CLICK HERE TO VIEW EXAM RADIOLOGY REPORT PROCEDURE: VEIN CENTER ULTRASOUND VENOUS REFLUX LEFT LIMTED COMPARISON: None. INDICATIONS: Phlebitis and thrombophlebitis of superficial veins of left lower extremity I80.02 TECHNIQUE: Duplex imaging of the lower extremity to assess the deep and superficial venous system for the presence of deep or superficial venous incompetence and to document the location and severity of disease. The study includes evaluation of the great saphenous vein (GSV), anterior accessory saphenous vein (AASV) and small saphenous vein (SSV). Patient scanned in reverse Trendelenburg and standing. FINDINGS: LEFT LOWER EXTREMITY: Saphenofemoral Junction Reflux: Yes 8.0mm 1.2 sec GSV: Diam (mm) Reflux/ Time (sec) Proximal Thigh 5.5 Yes 1.6 Mid Thigh 4.5 Yes 0.8 Distal Thigh 4.2 Yes 1.3 Prox Calf 4.3 Yes 0.9 Mid Calf Saphenopopliteal Junction Reflux: 6.9 mm Yes 0.4 SSV: Proximal Calf 2.4 No Mid Calf 2.1 No AASV: Proximal Thigh 8.6 Yes 0.8 Mid Thigh 2.7 No Distal Thigh Thrombi: Chronic thrombus visualized in SSV. Compressibility: Normal Flow: Normal Industrial Psychologist: Dist/med calf 2.4mm with 0s reflux. Mid/med calf 2.7mm with 0s reflux. Tech Note: Incompetent SFJ and GSV. Patent varicose vein mid/med calf 3.2mm with 0s reflux. Patent varicose vein prox/med calf 3.7mm with 0.7s reflux. CONCLUSION: 1. Moderate right great and anterior accessory saphenous vein venous insufficiency with associated dilatation 2. Incompetent varicose veins 3. 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 Mary Kay Vaca PROF CHEM 8 (BAS METB)on Anion gap [Moles/Vol] 10.9 mmol/L Normal [facility] Comment on above: Performed By: #### B MP, BNP #### [facility] [address] [place] [address] Dr. Mary Kay Vaca Calcium [Mass/Vol] 8.8 mg/dL Normal 8.5-10.1 [facility] Comment on above: Performed By: #### B MP, BNP #### [facility] [address] [place] [address] Dr. Mary Kay Vaca Chloride [Moles/Vol] 107 mmol/L Normal 98-[address] [facility] Comment on above: Performed By: #### B MP, BNP #### [facility] [address] [place] [address] Dr. Mary Kay Vaca CO2 [Moles/Vol] 29.0 mmol/L Normal 21.0-32.0 [facility] Comment on above: Performed By: #### B MP, BNP #### [facility] [address] [place] [address] Dr. Mary Kay Vaca Creatinine [Mass/Vol] 1.31 mg/dL Critically high 0.70-1.[address] [facility] Comment on above: Performed By: #### B MP, BNP #### [facility] [address] [place] [address] Dr. Mary Kay Vaca EGFR-AF MAURITANIAN >60 Normal >=60 [facility] Comment on above: Performed By: #### B MP, BNP #### [facility] [address] [place] [address] Dr. Mary Kay Vaca EGFR-NON AF MAURITANIAN 52 mL/min/1.73m2 Critically low >=[address] [facility] Comment on above: Performed By: #### B MP, BNP #### [facility] [address] [place] [address] Dr. Mary Kay Vaca Glucose [Mass/Vol] 121 mg/dL Critically high 74-106 T [facility] Comment on above: Performed By: #### B MP, BNP #### [facility] [address] [place] [address] Dr. Mary Kay Vaca Potassium [Moles/Vol] 3.9 mmol/L Normal 3.5-5.[address] [facility] Comment on above: Performed By: #### B MP, BNP #### [facility] [address] [address] [address] Mary Kay Vaca Sodium [Moles/Vol] 143 mmol/L Normal 136-145 [facility] Comment on above: Performed By: #### B MP, BNP #### [facility] [address] [place] [address] Dr. Mary Kay Vaca Urea nitrogen [Mass/Vol] 29.0 mg/dL Critically high 7.0-18.[address] [facility] Comment on above: Performed By: #### B MP, BNP #### [facility] [address] [place] [address] Dr. Mary Kay Vaca Urea nitrogen/Creatinine [Mass ratio] 22.1 mg/mg Normal [facility] Comment on above: Performed By: #### B MP, BNP #### [facility] [address] [place] [address] Dr. Mary Kay Vaca GLYCOHEMOGLOBIN A1Con 2021 ADA RECOMMENDATION SEE BELOW Normal [facility] Comment on above: Result Comment: ADA RECOMMENDED LIMIT 4.0 - 6.0 ADA THERAPEUTIC TARGET < 7.0 ACTION SUGGESTED > 7.0 Performed By: #### B MP, BNP #### [facility] [address] [place] [address] Dr. Mary Kay Vaca Glucose [Mass/Vol] 120 mg/dL Normal [facility] Comment on above: Performed By: #### B MP, BNP #### [facility] [address] [place] [address] Dr. Mary Kay Vaca HbA1c (Bld) [Mass fraction] 5.8 % Normal 4.5-6.[address] [facility] Comment on above: Performed By: #### B MP, BNP #### [facility] [address] [place] [address] Dr. Mary Kay Vaca PTH INTACTon 03-27-2022 PTH, Intact 43 pg/mL Normal 15-[address] [facility] Comment on above: Performed By: #### B MP, BNP #### [facility] [address] [place] [address] Dr. Mary Kay Vaca FERRITINon 03-25-2022 Ferritin [Mass/Vol] 30.0 ng/mL Normal 26.0-388.0 [facility] Comment on above: Performed By: #### F ERR, VITAD, FETIBC #### [facility] [address] [place] [address] Dr. Mary Kay Vaca HEMOGRAM AND PLATELon 2021 Hematocrit (Bld) [Volume fraction] 32.9 % Critically low 42.0-54.[address] [facility] Comment on above: Performed By: #### B MP, BNP #### [facility] [address] [place] [address] Dr. Mary Kay Vaca Hemoglobin (Bld) [Mass/Vol] 9.9 g/dL Critically low 14.0-18.[address] [facility] Comment on above: Performed By: #### B MP, BNP #### [facility] [address] [place] [address] Dr. Mary Kay Vaca MCH (RBC) [Entitic mass] 28.7 pg Normal 25.9-34.[address] [facility] Comment on above: Performed By: #### B MP, BNP #### [facility] [address] [place] [address] Dr. Mary Kay Vaca MCHC (RBC) [Mass/Vol] 30.1 g/dL Normal 29.9-35.[address] [facility] Comment on above: Performed By: #### B MP, BNP #### [facility] [address] [place] [address] Dr. Mary Kay Vaca MCV (RBC) [Entitic vol] 95.4 fL Critically high 80.0-94.[address] [facility] Comment on above: Performed By: #### B MP, BNP #### [facility] [address] [address] [address] Mary Kay Vaca PLT 247 103/ul Normal 150-[address] [facility] Comment on above: Performed By: #### B MP, BNP #### [facility] [address] [place] [address] Dr. Mary Kay Vaca RBC 3.45 106/ul Critically low 4.70-6.10 [facility] Comment on above: Performed By: #### B MP, BNP #### [facility] [address] [address] [address] Mary Kay Vaca WBC 6.9 103/ul Normal 4.0-11.[address] [facility] Comment on above: Performed By: #### B MP, BNP #### [facility] [address] [place] [address] Dr. Mary Kay Vaca IRON AND TIBCon 03-25-2022 % SATURATION 12.4 % Normal [facility] Comment on above: Performed By: #### R ENDIMAS, LIPID #### [facility] [address] [place] [address] Dr. Mary Kay Vaca Iron [Mass/Vol] 47.0 ug/dL Critically low 65.0-175.0 [facility] Comment on above: Performed By: #### R ENDIMAS, LIPID #### [facility] [address] [place] [address] Dr. Mary Kay Vaca TIBC DIRECT 380.0 ug/dL Normal 250.0-450.0 [facility] Comment on above: Performed By: #### R ENDIMAS, LIPID #### [facility] [address] [place] [address] Dr. Mary Kay Vaca PROF 14(COMP METB)on 022 Albumin [Mass/Vol] 3.3 g/dL Critically low 3.4-5.0 [facility] Comment on above: Performed By: #### R ENDIMAS, LIPID #### [facility] [address] [place] [address] Dr. Mary Kay Vaca Albumin/Globulin [Mass ratio] 0.8 {ratio} Normal [facility] Comment on above: Performed By: #### R ENAL, LIPID #### [facility] [address] [address] [address] Mary Kay Vaca ALP [Catalytic activity/Vol] 203 U/L Critically high 46-[address] [facility] Comment on above: Performed By: #### R ENAL, LIPID #### [facility] [address] [address] [address] Mary Kay Vaca ALT [Catalytic activity/Vol] 41 U/L Normal 16-[address] [facility] Comment on above: Performed By: #### R ENAL, LIPID #### [facility] [address] [address] [address] Mary Kay Vaca Anion gap [Moles/Vol] 13.4 mmol/L Normal [facility] Comment on above: Performed By: #### R ENAL, LIPID #### [facility] [address] [place] [address] Dr. Mary Kay Vaca AST [Catalytic activity/Vol] 41 U/L Critically high 15-[address] [facility] Comment on above: Performed By: #### R ENAL, LIPID #### [facility] [address] [address] [address] Mary Kay Vaca Bilirubin [Mass/Vol] 0.4 mg/dL Normal 0.2-1.[address] [facility] Comment on above: Performed By: #### R ENAL, LIPID #### [facility] [address] [address] [address] Mary Kay Vaca Calcium [Mass/Vol] 9.0 mg/dL Normal 8.5-10.1 [facility] Comment on above: Performed By: #### R ENAL, LIPID #### [facility] [address] [address] [address] Mary Kay Vaca Chloride [Moles/Vol] 105 mmol/L Normal 98-[address] [facility] Comment on above: Performed By: #### R ENAL, LIPID #### [facility] [address] [address] [address] Mary Kay Vaca CO2 [Moles/Vol] 24.9 mmol/L Normal 21.0-32.0 [facility] Comment on above: Performed By: #### R ENAL, LIPID #### [facility] [address] [address] [address] Mary Kay Vaca Creatinine [Mass/Vol] 0.97 mg/dL Normal 0.70-1.[address] [facility] Comment on above: Performed By: #### R ENAL, LIPID #### [facility] [address] [address] [address] Mary Kay Vaca EGFR-AF MAURITANIAN >60 Normal >=60 [facility] Comment on above: Performed By: #### R ENAL, LIPID #### [facility] [address] [address] [address] Mary Kay Vaca EGFR-NON AF MAURITANIAN >60 Normal >=[address] [facility] Comment on above: Performed By: #### R ENAL, LIPID #### [facility] [address] [address] [address] Mary Kay Vaca Globulin (S) [Mass/Vol] 4.1 g/dL Normal [facility] Comment on above: Performed By: #### R ENAL, LIPID #### [facility] [address] [address] [address] Mary Kay Vaca Glucose [Mass/Vol] 113 mg/dL Critically high 74-106 [facility] Comment on above: Performed By: #### R ENAL, LIPID #### [facility] [address] [address] [address] Mary Kay Vaca Potassium [Moles/Vol] 4.3 mmol/L Normal 3.5-5.1 [facility] Comment on above: Performed By: #### R ENAL, LIPID #### [facility] [address] [address] [address] Mary Kay Vaca Protein [Mass/Vol] 7.4 g/dL Normal 6.4-8.2 [facility] Comment on above: Performed By: #### R ENAL, LIPID #### [facility] [address] [address] [address] Mary Kay Vaca Sodium [Moles/Vol] 139 mmol/L Normal 136-145 [facility] Comment on above: Performed By: #### R ENAL, LIPID #### [facility] [address] [address] [address] Mary Kay Vaca Urea nitrogen [Mass/Vol] 21.0 mg/dL Critically high 7.0-18.[address] [facility] Comment on above: Performed By: #### R ENAL, LIPID #### [facility] [address] [address] [address] Mary Kay Vaca Urea nitrogen/Creatinine [Mass ratio] 21.6 mg/mg Normal [facility] Comment on above: Performed By: #### R ENAL, LIPID #### [facility] [address] [address] [address] Mary Kay Vaca UA RANDOMon 03-25-2022 Bilirubin Ql (U) Negative Normal NEGATIVE [facility] Comment on above: Performed By: #### B MP, BNP #### [facility] [address] [place] [address] Dr. Mary Kay Vaca Clarity (U) CLEAR Normal CLEAR [facility] Comment on above: Performed By: #### B MP, BNP #### [facility] [address] [place] [address] Dr. Mary Kay Vaca Color (U) LT. YELLOW Normal YELLOW [facility] Comment on above: Performed By: #### B MP, BNP #### [facility] [address] [place] [address] Dr. Mary Kay Vaca Glucose Ql (U) Negative Normal NEGATIVE [facility] Comment on above: Performed By: #### B MP, BNP #### [facility] [address] [place] [address] Dr. Mary Kay Vaca Hemoglobin Ql (U) Negative Normal NEGATIVE [facility] Comment on above: Performed By: #### B MP, BNP #### [facility] [address] [place] [address] Dr. Mary Kay Vaca Ketones Ql (U) Negative Normal NEGATIVE [facility] Comment on above: Performed By: #### B MP, BNP #### [facility] [address] [place] [address] Dr. Mary Kay Vaca LEUKOCYTES Negative Normal NEGATIVE [facility] Comment on above: Performed By: #### B MP, BNP #### [facility] [address] [address] [address] Mary Kay Vaca Nitrite Ql (U) Negative Normal NEGATIVE [facility] Comment on above: Performed By: #### B MP, BNP #### [facility] [address] [place] [address] Dr. Mary Kay Vaca pH (U) 6.5 [pH] Normal 5-[address] [facility] Comment on above: Performed By: #### B MP, BNP #### [facility] [address] [place] [address] Dr. Mary Kay Vaca SPEC GRAVITY 1.010 Normal 1.005-<=1.025 [facility] Comment on above: Performed By: #### B MP, BNP #### [facility] [address] [place] [address] Dr. Mary Kay Vaca UA PROTEIN Negative Normal NEGATIVE/ TRACE [facility] Comment on above: Performed By: #### B MP, BNP #### [facility] [address] [place] [address] Dr. Mary Kay Vaca Urobilinogen Qn (U) 0.2 {Ric'U}/dL Normal 0.2 - 1. [address] [facility] Comment on above: Performed By: #### B MP, BNP #### [facility] [address] [place] [address] Dr. Mary Kay Vaca URIC ACID SERUMon 03-25-2022 Urate [Mass/Vol] 3.5 mg/dL Normal 3.5-7.2 [facility] Comment on above: Performed By: #### R ENAL, LIPID #### [facility] [address] [place] [address] Dr. Mary Kay Vaca URINE T PROTEIN CREAT RATIOo n 03-25-2022 Protein (U) [Mass/Vol] 21.4 mg/dL Critically high <=12.[address] [facility] Comment on above: Performed By: #### B MP, BNP #### [facility] [address] [place] [address] Dr. Mary Kay Vaca UR PROT CREAT RAT 2.12 Normal [facility] Comment on above: Performed By: #### B MP, BNP #### [facility] [address] [place] [address] Dr. Mary Kay Vaca URINE CREAT 10.09 mg/dL Critically low 20.00-300.00 [facility] Comment on above: Performed By: #### B MP, BNP #### [facility] [address] [place] [address] Dr. Mary Kay Vaca VITAMIN D 25 OHon 03-25-2022 VIT D 25-OH 37.6 ng/mL Normal [facility] Comment on above: Performed By: #### F ERR, VITAD, FETIBC #### [facility] [address] [place] [address] Dr. Mary Kay Vaca VIT D RANGES SEE BELOW Normal [facility] Comment on above: Result Comment: <20 ng/mL Vit D deficient 20 - <30 ng/mL Vit D insufficient 30 - 100 ng/mL Vit D sufficient >100 ng/mL Potential Toxicity Performed By: #### F ERR, VITAD, FETIBC #### [facility] [address] [place] [address] Dr. Mary Kay Vaca VC CONSULT FOLLOWUPon 2021 VC CONSULT FOLLOWUP Patient: TODD SUAREZ Exam Date: 03/12/2022 : 1935 Gender:M Ordering : DR ALVA MAI M.D. Admission #: [id number] Family : Order #: [id number] CLICK HERE TO VIEW EXAM RADIOLOGY REPORT PROCEDURE: VEIN CENTER CONSULTATION FOLLOWUP VEIN CENTER - OFFICE VISIT FOLLOW UP COMPARISON: VC CONSULT FOLLOWUP, 03/01/2022. PROGRESS NOTES: The patient reports mild discomfort following micro foam chemical ablation of the right leg. The patient did not require oral analgesics. The patient did wear his compression stocking. The patient has followed our recommendations to walk 20-30 minutes once or twice per day since the procedure. The patient reports there has been significant improvement in his leg swelling and erythema. Physical exam demonstrates decrease in redness and swelling below the knee. Several small areas of active ulceration are observed. Both veins can be visualized and palpated. Review of the ultrasound performed the same day demonstrates occlusive thrombus extending throughout the treated right leg varicose veins. No deep vein thrombus. We agreed on a 4-6 week follow-up to allow continued wound healing possible subsequent venous treatments of the left leg. IMPRESSION: 1. Successful ablation of incompetent branch saphenous tributary/varicose vein 2. 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 Knee high 30-40 mm compression stockings for lymphedema 2. Follow-up in 4-6 weeks Nurse notes, history and physical were reviewed and confirmed, see attached forms. The nurse was present throughout the physical exam and consultation Dictated by: Alva Mai MD on 03/12/2022 at 15:32 Approved by: Alva Mai MD on 03/12/2022 at 15:[address] [facility] VC EXT VENOUS RT LIMITEDon 0 03-12-2022 VC EXT VENOUS RT LIMITED Patient: TODD SUAREZ Exam Date: 03/12/2022 : 1935 Gender:M Ordering : DR ALVA MAI M.D. Admission #: [id number] Family : Order #: [id number] CLICK HERE TO VIEW EXAM RADIOLOGY REPORT PROCEDURE: VEIN CENTER EXTREMITY VENOUS RIGHT LIMITED COMPARISON: VC EXT VENOUS RT LIMITED, 03/01/2022. INDICATIONS: Phlebitis and thrombophlebitis of superficial veins of right lower extremity I80.01 TECHNIQUE: Lower extremity simons scale and Duplex Doppler evaluation of the deep venous system from the inguinal ligament through the calf veins. FINDINGS: REGION: Right lower extremity. THROMBI: Negative for DVT. Varithena/microfoam induced thrombus seen dist/med calf. COMPRESSIBILITY: Noncompressibility corresponding to thrombus FLOW: Corresponding to *Exam performed in accordance with [facility] practice guidelines- Peripheral venous ultrasound, December 09, 2009. 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 Dictated by: Alva Mai MD on 03/12/2022 at 15:16 Approved by: Alva Mai MD on 03/12/2022 at 15:19 [facility] ECHOCARDIO M/2D COMPLETEon 0 03-08-2022 ECHOCARDIO M/2D COMPLETE Patient: TODD SUAREZ Exam Date: 03/08/2022 : 1935 Gender:M Ordering : JERICA MUÑIZ Admission #: [id number] Family : Order #: [id number] CLICK HERE TO VIEW EXAM ECHOCARDIOGRAM REPORT PROCEDURE: CARDIO PULMONARY ECHOCARDIO M/2D COMP INDICATIONS: Aortic valve stenosis COMPARISON: None. DESCRIPTION: COMPLETE ECHOCARDIOGRAM Real-time transthoracic echocardiography with 2D, M-mode, spectral and color flow Doppler performed. QUALITY: Technical quality was good. LEFT VENTRICLE: Normal chamber size. Mild concentric left ventricular hypertrophy. Global left ventricular systolic function is mildly decreased. There is possible hypokinesis of the basal inferior and inferoseptal segments. LV EF: Calculated left ventricular ejection fraction is 47%. Visual LVEF is 45 to 50%. DIASTOLIC: Grade II diastolic dysfunction. ATRIAL SEPTUM: LEFT ATRIUM: Severe dilatation. RIGHT ATRIUM: Moderate dilatation. RIGHT VENTRICLE: Normal chamber size. Normal right ventricular systolic function. TRICUSPID VALVE: Normal mobility and thickness. No stenosis with trivial regurgitation. Mild pulmonary hypertension. RVSP 40 mmHg MITRAL VALVE: Normal mobility and thickness. No mitral valve prolapse. No evidence of mitral valve stenosis. There is no mitral annular calcification. Mild to moderate mitral regurgitation. AORTIC VALVE: Normal trileaflet appearance. Moderately calcified aortic valve. Moderately diminished mobility. Doppler velocity suggest moderate aortic valve stenosis. Calculated area 1.2 cm?. Mean gradient 10 mmHg. DVI 0.3. Mild aortic regurgitation. AORTIC ROOT: Normal diameter and appearance. PULMONIC VALVE: Normal thickness and mobility. No stenosis. No regurgitation. PERICARDIUM: No evidence of pericardial effusion. IVC: Collapses with inspirations. Normal size. PLEURA: CONCLUSION: 1. Left ventricular systolic function is mildly reduced. LV ejection fraction is 45 to 50%. Possible wall motion abnormality is in the basal inferior and inferoseptal segments. 2. Normal right ventricular systolic function. 3. Grade 2 diastolic dysfunction. 4. Moderate aortic valve stenosis. 5. Mild to moderate mitral regurgitation. 6. Mildly elevated right-sided pressures. Adult Echocardiography Procedure Report Left Ventricle LVEDD (3.7 - 5.6 cm): 5.29 cm LVESD (2.2 - 4.0 cm): 4.20 cm LVIVS thickness (0.6 - 1.2 cm): 1.22 cm LVPW thickness (0.5 - 1.0 cm): 1.16 cm e': 9.32 cm/s E - e': 11.60 LVOT Area (cm2): 3.80 cm2 LVOT Diameter 2.20 cm Left Ventricular Ejection Fraction: 45-50 % Left Atrium LA Volume Index (2D A2C): 50.80 ml/m2 Left Atrium Systolic Dimension: 4.70 cm Left Atrium Systolic Area(A2C): 28.00 cm2 Left Atrium Systolic Area(A4C): 29.80 cm2 Left Atrium Systolic Volume(A2C): 22429 mm3 Left Atrium Systolic Volume(A4C): 156279 mm3 Mitral Valve MV E to A Ratio: 1.70 Deceleration Mills: 5630 mm/s2 Mitral Valve A-Wave Peak Velocity: 64.20 cm/s Mitral Valve E-Wave Peak Velocity: 108.00 cm/s Right Ventricle RV Internal Diastolic Dimension: 3.61 cm Aorta AO Root Diam: 3.00 cm Aortic Valve Peak Velocity (Antegrade Flow): 187.00 cm/s, 205.00 cm/s AoV Area (Peak Shaheen): 1.14 cm2 AoV Area (VTI): 1.22 cm2 Deceleration Mills: 2340 mm/s2 Pressure Half-Time: 518 ms Peak Velocity: 413.00 cm/s Peak Gradient: 68 mm[Hg] Aortic Valve Cusp Separation: 1.10 cm Peak Velocity(Antegrade Flow): 235.00 cm/s Peak Gradient(Antegrade Flow): 22 mm[Hg] Mean Velocity(Antegrade Flow): 151.00 cm/s Mean Gradient(Antegrade Flow): 10 mm[Hg] Velocity Time Integral: 51.60 cm Tricuspid Valve Peak Velocity (Regurgitant Flow): 305.00 cm/s Pulmonic Valve Peak Velocity: 66.80 cm/s Peak Gradient: 2 mm[Hg] Right Atrium Dictated by: Benny Franklin M.D. on 03/11/2022 at 12:34 Approved by: Benny Franklin M.D. on 03/11/2022 at 12:38 [facility] VC INJ FOAM SCLERO W US MLTI on 03-07-2022 VC INJ FOAM SCLERO W US MLTI Patient: TODD SUAREZEunice Exam Date: 03/07/2022 : 1935 Gender:M Ordering : DR ALVA MAI M.D. Admission #: [id number] Family : Order #: [id number] CLICK HERE TO VIEW EXAM RADIOLOGY REPORT PROCEDURE: VEIN CENTER INJECTION FOAM SCLEROSING SOLUTION WITH ULTRASOUND MULTIPLE VEINS COMPARISON: None. 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 Ultrasound-guided microfoam chemical ablation with Varithena(r) 2. Intraoperative ultrasound guidance Physician: Kendall Cabrera M.D. Anesthesia: None. Indications for Procedure: 86 year old male. Symptoms including lower extremity pain, swelling, ulcers for many years despite conservative medical therapy including medical compression stockings, exercise and analgesics. Prior procedures include: Endovenous laser ablation. 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 Duplex scan showed reflux and enlarged diameters up to 3 mm. The patient has undergone informed consent including management options where the complications of infection, bleeding, pain, and skin injury were discussed. Particular attention was spent discussing thrombus extension and deep vein thrombosis as well as the possibility of pulmonary embolus and treatment with oral or injectable blood thinners. Procedure: The patient walked to the procedure room. All applicable staff donned appropriate apparel. A procedure timeout was performed to confirm correct patient, correct extremity, correct procedure, and correct room set-up including presence of all applicable supplies, devices, and drugs. A duplex ultrasound, performed by myself confirmed the location and incompetence of branch saphenous varicosities and their course was marked on the skin together with the dilated tributaries. The extent of treatment of the veins and the associated varicosities was determined through ultrasound mapping. The skin was prepped and then punctured with a butterfly needle and advanced under ultrasound guidance. The Varithena(r) canister was activated and the canister was primed and purged as required in the instructions for use. Varithena(r) was drawn into a sterile syringe. Varithena(r) was slowly administered at 0.5-1.0 cc/second with close observation by ultrasound of its course in the vessels. Total volume utilized was: 13 mL (8 mL within an incompetent 3 mm branch saphenous varicosity of the distal medial right lower leg; 5 mL within an incompetent 3 mm branch saphenous varicosity of the mid-distal lateral lower leg). Following administration of Varithena(r), the leg was elevated and the patient was asked to repeatedly dorsiflex the ankle to limit flow of Varithena(r) into perforating veins. Once appropriate spasm had been confirmed in the treated veins, the vascular catheter was removed from the leg and light pressure was applied over the puncture site for hemostasis The common femoral and deep superficial veins were then evaluated for flow and compressibility prior to dressing placement. The lower extremity was kept elevated at 45 degrees above the horizontal and cording material was applied over the saphenous segments and tributaries to allow for eccentric compression over the target vessels including the targeted saphenous vein(s). A multilayer dressing was applied consisting of foam pads, coban and thigh-high 20-30 mm Hg compression elastic support hose were placed on the patient. The leg was lowered only after compression had been applied and the patient was immediately ambulatory. The patient ambulated 10 minutes under supervision and was without apparent concerns at time of release Post-care instructions include advising patient to keep post-treatment bandages in place and dry for 48 hours, avoid extended periods of inactivity, avoid heavy exercise for one week, wear compression stockings on the treated leg continuously for two weeks, to walk daily for 10 minutes over the next month. The patient was instructed to take an anti-inflammatory medicine as needed and to follow up for color duplex scan of the Saphenous veins, the treated branch saphenous varicosities, the adjacent deep veins, and additional treatment within 7 days. PERSONNEL: Rashard Jones R.N. Dictated by: Kendall Cabrera M.D. on 03/07/2022 at 15:53 Approved by: Kendall Cabrera M.D. on 03/07/2022 at 15:[address] [facility] VC CONSULT FOLLOWUPon 2021 VC CONSULT FOLLOWUP Patient: TODD SUAREZ Exam Date: 03/01/2022 : 1935 Gender:M Ordering : DR ALVA MAI M.D. Admission #: [id number] Family : Order #: [id number] CLICK HERE TO VIEW EXAM RADIOLOGY REPORT PROCEDURE: VEIN CENTER CONSULTATION FOLLOWUP VEIN CENTER - OFFICE VISIT FOLLOW UP COMPARISON: None. PROGRESS NOTES: The patient reports some improvement in right leg symptoms of swelling. There has been interval reduction in varicosities. The patient has followed our recommendations to walk 20-30 minutes once or twice per day since the procedure. Physical exam demonstrates lower extremity swelling and slight decrease in varicosities of the right leg. Persistent edema bilaterally. Review of the ultrasound performed the same day demonstrates occlusive thrombus extending throughout the treated vein, see separate report, consistent with a successful ablation. No thrombus extending into or beyond the saphenofemoral junction. The patient expressed a desire to proceed with treatment of remaining incompetent veins. The patient was informed that treatment was a process and would require several procedures/sessions. IMPRESSION: 1. Successful ablation of the right great saphenous vein 2. Persistent dilated veins and lower extremity symptoms PLAN: 1. Microfoam chemical ablation of incompetent branch saphenous varicosities of right and left leg. 2. Re-evaluation of left leg veins as needed. Nurse notes, history and physical were reviewed and confirmed, see attached forms. The nurse was present throughout the physical exam and consultation Dictated by: Kendall Cabrera M.D. on 03/01/2022 at 14:41 Approved by: Kendall Cabrera M.D. on 03/01/2022 at 14:[address] [facility] VC EXT VENOUS RT LIMITEDon 0 03-01-2022 VC EXT VENOUS RT LIMITED Patient: TODD SUAREZ Exam Date: 03/01/2022 : 1935 Gender:M Ordering : DR ALVA MAI M.D. Admission #: [id number] Family : Order #: [id number] CLICK HERE TO VIEW EXAM RADIOLOGY REPORT PROCEDURE: VEIN CENTER EXTREMITY VENOUS RIGHT LIMITED COMPARISON: None. INDICATIONS: Phlebitis and thrombophlebitis of superficial veins of right lower extremity I80.01 TECHNIQUE: Lower extremity simons scale and Duplex Doppler evaluation of the deep venous system from the inguinal ligament through the calf veins. FINDINGS: REGION: Right lower extremity. THROMBI: Negative for DVT. Heat induced thrombus visualized 4.2 cm from the SFJ and is visualized in GSV from groin to mid calf at point of insertion. COMPRESSIBILITY: Non-compressible AND partially compressible segments. FLOW: Areas of no flow. OTHER: CONCLUSION: 1. Successful post ablation occlusion of right great saphenous vein. Dictated by: Kendall Cabrera M.D. on 03/01/2022 at 14:38 Approved by: Kendall Cabrera M.D. on 03/01/2022 at 14:41 Normal [facility] Cardiovascular Lab Reporton 07-29-2020 Cardiovascular Lab Report [facility] Patient Name: Todd Suarez [facility] D MR #: [id number] Department of Physician: John Peralta M.D. Division of Service Date: 07/28/2020 Cardiology Birthdate: 1935 Adult Cardiovascular Room #: [facility] [address] [facility]. [place] [address] Cardiovascular Laboratory Report CLINICAL PRESENTATION: The patient is an 84-year-old male with history of CAD, status post PCI, LAD 2019, moderate aortic stenosis and EF to 55%, and CKD stage III, who has worsening shortness of breath. He is referred for right heart catheterization. FINAL IMPRESSION: Normal right heart catheterization. PLAN: 1. Continue optimal medical therapy for secondary prevention of CAD. 2. Workup alternative causes for shortness of breath and dyspnea on exertion. PROCEDURES: Right heart catheterization, ultrasound guidance for vascular access. INDICATION: Shortness of breath, possible congestive heart failure. PROCEDURE DESCRIPTION: The patient was brought to the cardiac catheterization lab in a fasting state. Informed written consent was obtained. He was prepped and draped in usual sterile fashion. Right neck time-out was performed. He was given Versed and fentanyl for sedation. A 1% lidocaine was infiltrated in the right internal jugular vein. Using ultrasound guidance and micropuncture access technique, a 6-[place] sheath was placed in the right internal jugular vein. Next, the Arrington catheter was advanced under fluoroscopic and hemodynamic monitoring to the right atrium. Pressure obtained in the right atrium, right ventricle, pulmonary artery, pulmonary capillary wedge position, oxygen saturations drawn from the pulmonary artery, and the Rina cardiac output and cardiac index were calculated. The Arrington catheter was then removed. At this point, the procedure was completed. All catheters and wires removed from the body. The right internal jugular venous sheath was removed and manual pressure was applied to obtain hemostasis. There were no apparent complications. TOTAL CONTRAST: 0 mL. TOTAL CONSCIOUS SEDATION TIME: 18 minutes. TOTAL FLUOROSCOPY TIME: 1 minute 14 seconds 0.02 Gy. FINDINGS: Right heart catheterization. Right atrial pressure mean 3. RV 30/8. PA 29/15 (mean 20). Pulmonary capillary wedge pressure mean 8. Rina cardiac output 5.3 L/minute. Rina cardiac index 2.6 L/minute per meter squared. Oxygen saturation, PA sat 56%, AO sat 97%. Electronically Signed by: Scott Barnett M.D. 08/01/2020 03:20 P Scott Barnett M.D. Date Dict: 07/28/2020/04:48 P/Scott Barnett M.D. Date Trans: 07/29/2020 05:43 A/alphonso [id number] cc: Jose Brewer M.D. [address] [facility]. [facility] [address] [address]ñiz, [facility] [address] [facility] [facility] [address] Normal The [facility] *SARS-CoV-2 COVID-19on 07-27 [id number] Not Detected Normal Not Detected [facility] Comment on above: Order Comment: The A ptima SARS-CoV-2 assay is a nucleic acid amplification test intended for the qualitative detection of RNA from SARS-CoV-2 isolated and purified from nasopharyngeal (HOT [place]AMALE MAN),oropharyngeal (OP), nasal swab, sputum, and bronchoalveolar lavage (BAL) specimens from patients with signs and symptoms of infection who are suspected of COVID-19. Results are for the identification of SARS-CoV-2 RNA. The SARS-CoV-2 RNA is generally detectable during the acute phase of infection. The Aptima SARS-CoV-2 Assay on the [employer]scron and Newscron Fusion system is intended for use by laboratory personnel specifically instructed and trained in the operation of the [place] and Quincy Fusion system. The Aptima SARS-CoV-2 assay is only for use under the Food and Drug Administration Emergency Use Authorization. Testing is limited to laboratories certified under the Clinical Laboratory Improvement Amendments of 1988 (CLIA), 42 U.S.C. ???263a, to perform high complexity tests. Not Detected: Not detected does not preclude SARS-CoV-2 infection and should not be used as the sole basis for patient management decisions. Not detected results must be combined with clinical observations, patient history, and epidemiological information. Performed By: #### 3 [id number] #### [facility] [address] [place] [address], [facility] Ambulatory Clinical Summaryo n 05-23-2020 Ambulatory Clinical Summary {[id number]}CD:[id number] [facility] Vital Signs Date Time Vital Sign Value Performing Clinician Facility 10-30-2023 14:15-0500 Body height 167.6 cm Jose Brewer MD Work Phone: [facility] 10-30-2023 14:15-0500 Body mass index (BMI) [Ratio] 30.99 kg/m2 Jose Brewer MD Work Phone: [facility] 10-30-2023 14:15-0500 Body temperature 96.3 [degF] Jose Brewer MD Work Phone: [facility] 10-30-2023 14:15-0500 Body weight 87.09 kg Jose Brewer MD Work Phone: [facility] 10-30-2023 14:15-0500 Diastolic blood pressure 60 mm[Hg] Jose Brewer MD Work Phone: [facility] 10-30-2023 14:15-0500 Heart rate 90 /min Jose Brewer MD Work Phone: [facility] 10-30-2023 14:15-0500 SaO2% (BldA) [Mass fraction] 96 % Jose Brewer MD Work Phone: [facility] 10-30-2023 14:15-0500 Systolic blood pressure 106 mm[Hg] Jose Brewer MD Work Phone: [facility] 07-10-2023 14:00-0400 Body height 167.64 cm Azshan Gonsaless Other [email or web address] Other 07-10-2023 14:00-0400 Body mass index (BMI) [Ratio] 30.18 kg/m2 Aziz Bakhous Other [email or web address] Other 07-10-2023 14:00-0400 Body temperature 96.8 [degF] Azshan Gonsaless Other [email or web address] Other 07-10-2023 14:00-0400 Body weight 84.82 kg Azshan Bakhous Other [email or web address] Other 07-10-2023 14:00-0400 Diastolic blood pressure 69 mm[Hg] Azshan Hernándezhous Other [email or web address] Other 07-10-2023 14:00-0400 Respiratory rate 18 /min Kaur Gonsaless Other [email or web address] Other 07-10-2023 14:00-0400 SaO2% (BldA) [Mass fraction] 93 % Azshan Bakhous Other [email or web address] Other 07-10-2023 14:00-0400 Systolic blood pressure 110 mm[Hg] Aziz Bakhous Other [email or web address] Other 03-07-2023 11:40-0400 Body height 167.64 cm Aziz Bakhous Other [email or web address] Other 03-07-2023 11:40-0400 Body mass index (BMI) [Ratio] 31.44 kg/m2 Azsahn Bakhous Other [email or web address] Other 03-07-2023 11:40-0400 Body temperature 97 [degF] Aziz Bakhous Other [email or web address] Other 03-07-2023 11:40-0400 Body weight 88.36 kg Aziz Bakhous Other [email or web address] Other 03-07-2023 11:40-0400 Diastolic blood pressure 84 mm[Hg] Aziz Bakhous Other [email or web address] Other 03-07-2023 11:40-0400 Respiratory rate 18 /min Aziz Bakhous Other [email or web address] Other 03-07-2023 11:40-0400 SaO2% (BldA) [Mass fraction] 96 % Aziz Bakhous Other [email or web address] Other 03-07-2023 11:40-0400 Systolic blood pressure 154 mm[Hg] Aziz Bakhous Other [email or web address] Other 09-25-2022 14:40-0500 Body height 167.64 cm Aziz Bakhous Other [email or web address] Other 09-25-2022 14:40-0500 Body mass index (BMI) [Ratio] 29.05 kg/m2 Aziz Bakhous Other [email or web address] Other 09-25-2022 14:40-0500 Body temperature 96.7 [degF] Aziz Bakhous Other [email or web address] Other 09-25-2022 14:40-0500 Body weight 81.65 kg Aziz Bakhous Other [facility] [employer] Other 09-25-2022 14:40-0500 Diastolic blood pressure 74 mm[Hg] Kaur Robins Other [employer] [facility] [employer] Other 09-25-2022 14:40-0500 Respiratory rate 18 /min Kaur Robins Other [employer] [facility] [employer] Other 09-25-2022 14:40-0500 SaO2% (BldA) [Mass fraction] 96 % Kaur Robins Other [employer] [facility] [employer] Other 09-25-2022 14:40-0500 Systolic blood pressure 108 mm[Hg] Kaur Robins Other [facility] [employer] Other 04-24-2022 14:32-0400 Body temperature 97.7 [degF] MD Kaur Robins Work Phone: [facility] 04-24-2022 14:32-0400 Diastolic blood pressure 61 mm[Hg] MD Kaur Robins Work Phone: [facility] 04-24-2022 14:32-0400 Heart rate 66 /min MD Kaur Robins Work Phone: [facility] 04-24-2022 14:32-0400 Systolic blood pressure 137 mm[Hg] MD Kaur Robins Work Phone: [facility] 04-24-2022 13:20-0400 Respiratory rate 16 /min MD Kaur Robins Work Phone: [facility] 04-24-2022 13:20-0400 SaO2% (BldA) [Mass fraction] 97 % MD Kaur Robins Work Phone: [facility] 04-02-2022 12:40-0400 Body height 167.64 cm Azshan Bakselenes Other [email or web address] Other 04-02-2022 12:40-0400 Body mass index (BMI) [Ratio] 28.08 kg/m2 Aziz Bakhous Other [email or web address] Other 04-02-2022 12:40-0400 Body temperature 96.6 [degF] Azshan Gonsaless Other [email or web address] Other 04-02-2022 12:40-0400 Body weight 78.93 kg Azshan Bakhous Other [email or web address] Other 04-02-2022 12:40-0400 Diastolic blood pressure 77 mm[Hg] Aziz Bakhous Other [email or web address] Other 04-02-2022 12:40-0400 Respiratory rate 18 /min Kaur Gonsaless Other [email or web address] Other 04-02-2022 12:40-0400 SaO2% (BldA) [Mass fraction] 96 % Azshan Bakhous Other [email or web address] Other 04-02-2022 12:40-0400 Systolic blood pressure 146 mm[Hg] Aziz Bakhous Other [email or web address] Other 01-22-2022 12:20-0400 Body height 167.64 cm Aziz Bakhous Other [email or web address] Other 01-22-2022 12:20-0400 Body mass index (BMI) [Ratio] 28.08 kg/m2 Azshan Bakhous Other [email or web address] Other 01-22-2022 12:20-0400 Body temperature 96.1 [degF] Kaur Robins Other [email or web address] Other 01-22-2022 12:20-0400 Body weight 78.93 kg Kaur Robins Other [email or web address] Other 01-22-2022 12:20-0400 Diastolic blood pressure 60 mm[Hg] Kaur Robins Other [email or web address] Other 01-22-2022 12:20-0400 Respiratory rate 20 /min Kaur Robins Other [email or web address] Other 01-22-2022 12:20-0400 SaO2% (BldA) [Mass fraction] 97 % Kaur Robins Other [email or web address] Other 01-22-2022 12:20-0400 Systolic blood pressure 104 mm[Hg] Kaur Robins Other [email or web address] Other Encounters Encounter Date Encounter Type Care Provider Facility Start: 11-03-2023 End: 11-03-2023 ambulatory [facility] Start: 10-30-2023 End: 10-30-2023 ambulatory JOSE BREWER Not Available Start: 10-30-2023 End: 10-30-2023 Office outpatient visit 25 minutes Jose Brewer MD Work Phone: [facility] Comment on above: 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, 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 (CMS/HCC) (Primary Dx); Chronic heart failure with preserved ejection fraction (HFpEF) (CMS/HCC); Benign essential hypertension (CMS/HCC); Primary osteoarthritis of shoulders, bilateral; Gastroesophageal reflux disease without esophagitis; Skin candidiasis; PAD (peripheral artery disease) (CMS/HCC) Start: 10-30-2023 Karen flowsantonio Brewer MD Work Phone: [facility] Work [facility]: [facility] Start: 08-04-2023 End: 08-04-2023 ambulatory Aziz Bakhous Other [email or web address] Other Start: 08-04-2023 Telephone encounter Aziz Bakhous [facility] Start: 07-10-2023 End: 07-10-2023 ambulatory Aziz Bakhous Other [email or web address] Other Start: 07-10-2023 Office outpatient vi sit 25 minutes Aziz Bakhous [facility] Start: 04-23-2023 End: 04-23-2023 ambulatory [facility] Start: 03-10-2023 End: 03-10-2023 ambulatory [facility] Start: 03-07-2023 End: 03-07-2023 ambulatory Aziz Bakhous Other [email or web address] Other Start: 03-07-2023 Office outpatient vi sit 25 minutes Aziz Bakhous [facility] Start: 02-11-2023 End: 02-12-2023 ambulatory AZIZ BAKHOUS Facility:[facility] Start: 12-23-2022 End: 12-24-[address] JOSE BREWER Facility:[facility] Start: 11-11-2022 End: 11-12-[address] JOSE BREWER Facility:[facility] Start: 11-11-2022 End: 11-11-2022 ambulatory [facility] Start: 09-25-2022 End: 09-25-2022 ambulatory Aziz Bakhous Other [email or web address] Other Start: 09-25-2022 Office outpatient vi sit 25 minutes Kaur Robins [facility] Start: 09-17-2022 End: 09-18-2022 ambulatory KAUR ROBINS Facility:[facility] Start: 07-30-2022 End: 07-31-[address] JOSE BREWER Facility:[facility] Start: 07-23-2022 End: 07-24-[address] JOSE BREWER Facility:[facility] Start: 07-09-2022 End: 07-10-[address] ALVA MAI Facility:[facility] Start: 05-16-2022 ambulatory JERICA MUÑIZ Facility :[facility] Start: 04-24-2022 End: 04-24-2022 Discharged Recurring MD Kaur Robins Work Phone: [facility] Start: 04-08-2022 End: 04-09-[address] JESSY LAMAS Facility:[facility] Start: 04-04-2022 End: 04-05-[address] JOSE BREWER Facility:[facility] Start: 04-02-2022 End: 04-02-2022 ambulatory Kaur Robins Other [email or web address] Other Start: 04-02-2022 Office outpatient vi sit 25 minutes Kaur Robins [facility] Start: 03-25-2022 End: 03-26-[address] DOCTOR ROSE Facility:[facility] Start: 03-12-2022 End: 03-13-[address] ALVA MAI Facility:[facility] Start: 03-08-2022 End: 03-09-2022 ambulatory JERICA MUÑIZ Facility:[facility] Start: 03-07-2022 End: 03-08-[address] ALVA MAI Facility:[facility] Start: 03-01-2022 End: 03-02-[address] ALVA MAI Facility:[facility] Start: 02-25-2022 ambulatory KAREEN Knight lity:[facility] Start: 01-22-2022 End: 01-22-2022 ambulatory Kaur Robins Other [email or web address] Other Start: 01-22-2022 Office outpatient vi sit 25 minutes Azshan Bakselenes [facility] Start: 01-18-2022 End: 01-18-2022 ambulatory Aziz Bakselenes Other [email or web address] Other Start: 01-18-2022 Telephone encounter Azshan Bakselenes [facility] Start: 01-14-2022 End: 01-14-2022 ambulatory Aziz Bakhous Other [email or web address] Other Start: 01-14-2022 Telephone encounter Aziz Bakhous [facility] Start: 10-23-2021 End: 10-23-2021 ambulatory Aziz Bakhous Other [email or web address] Other Start: 10-23-2021 Telephone encounter Azshan Bakselenes [facility] Start: 07-28-2020 End: 07-29-2020 Patient encounter procedure REFERRED SELF Facility:[facility] Plan of Treatment Date Care Activity Detail Author Start: 04-29-2024 End: 04-29-2024 Patient encounter procedure 04/29/2024 1:00 PM EDT Office Visit [facility] [address] [place] [id number] Jose Brewer MD [address] [place] [phone] [facility] Start: 10-30-2023 End: 10-30-2023 Patient encounter procedure 10/30/2023 2:15 PM EST Office Visit [facility] [address] [place] [phone] Jose Brewer MD [address] [place] [phone] Arrived [facility] Comment on above: Arrived Start: 08-05-2021 Hemoglobin A1c measurement Diabetes: Hemoglobin A1C [facility] Start: 1945 Glaucoma screening Diabetes: R etinopathy Screening [facility] Start: 1935 Medicare Annual Well ness (AWV) Medicare Annual Wellness (AWV) [facility] Payers Date Payer Category Payer Medicare AETNA MEDICARE A DVANTAGE AETNA MEDICARE REPLACEMENT [id number] 2022-Present [address] [place] [address] [id number] 1959 Medicare [id number] 1959 Self-pay [id number] 1959 Unknown [id number] 1936 Unknown [id number] [id number] 1936 Unknown [id number] 2.16.840.1.750752.3.579.2.593 1936 Unknown [id number] 2.16.840.1.450599.3.579.2.593 1936 Unknown [id number] 2.16.840.1.702012.3.579.2.593 1936 Unknown [id number] 2.16.840.1.149241.3.579.2.593 1936 Unknown [id number] 2.16.840.1.604119.3.579.2.593 1936 Unknown [id number] 2.16.840.1.439583.3.579.2.593 1936 Unknown [id number] 2.16.840.1.261987.3.579.2.593 1936 Unknown [id number] 2.16.840.1.227261.3.579.2.593 1936 Unknown [id number] 2.16.840.1.538290.3.579.2.593 1936 Unknown [id number] 2.16.840.1.886681.3.579.2.593 1936 Unknown [id number] 2.16.840.1.925159.3.579.2.593 1936 Unknown [id number] 2.16.840.1.992581.3.579.2.593 1936 Unknown [id number] 2.16.840.1.956560.3.579.2.593 1936 Unknown [id number] 2.16.840.1.198040.3.579.2.593 1936 Unknown [id number] 2.16.840.1.012307.3.579.2.593 1936 Unknown [id number] 2.16.840.1.735199.3.579.2.593 1936 Unknown [id number] 2.16.840.1.583982.3.579.2.1259 Social History Date Type Detail Facility Unknown if ever smoked [employer] Other Start: 10-08-2023 End: 10-30-2023 Sex Assigned At [facility] [address] [employer] Other Start: 1935 Sex Assigned At Male F [facility] Start: 10-08-2023 End: 10-30-2023 Tobacco smoking status PRIS Ex-smoker [facility] End: 09-15-2011 History of tobacco use Current smoker [facility] End: 09-15-2011 History of tobacco use Cigarette Smoker [facility] History of tobacco use Pipe Smoker [facility] History of tobacco use Cigar Smoker [facility] Start: 10-08-2023 End: 10-30-2023 Tobacco use and exposure Smokeless tobacco non-user [facility] Start: 10-08-2023 End: 10-30-2023 Alcohol intake Current drinker of alcohol (finding) [facility] Start: 10-08-2023 End: 10-30-2023 History of Social function [facility] Start: 10-08-2023 Tobacco Comment 4 cigars a day x 30 plus years [facility] Start: 05-12-2023 Alcohol Comment caffeine intak e: 3-4 cups per day; coffee daily, pop sometimes [facility] Start: 1935 Sex Assigned At Not on file [facility] History of tobacco use Passive smoker [facility] How often to you hav e a drink containing alcohol? Monthly or less [facility] How many standard drinks containing alcohol do you have on a typical day? 1 or 2 [facility] How often do you hav e 6 or more drinks on 1 occasion? Never [facility] Medical Equipment Procedure Code Equipment Code Equipment Origin al Text Equipment Identifier Dates 3 times a day [id number] Start: 08-25-2023 1 each by Other route if needed [id number] Start: 08-06-2023 Clinical Notes 01-14-2022 to 11-03-2023 Jose Brewer MD - 10/30/2023 3:17 PM Carolann Brewer MD - 10/30/2023 3:16 PM Carolann Brewer MD - 10/30/2023 3:16 PM Carolann Brewer MD - 10/30/2023 3:16 PM EST Note Date & Type Note Facility 11-03-2023 Note [facility] Cardiology Clinic Note Chief Complaint: Patient here for 6 mo follow up CAD, hypertension, chronic systolic heart failure, and aortic valve stenosis. Had carotid US in May and labs in Jun 2023. He was started on Jardiance recently by his marker assembler. Patient denies chest pain, palpitations, and lightheadedness/syncope. Says his BERG is better with inhaler. HPI: Todd Suarez is a 87 y.o. male with a history of coronary artery disease, s/p PCI of the LAD in 2019, moderate aortic stenosis and chronic kidney disease stage III; he underwent a right heart catheterization 07/2020 Update 11/03/2023: Doing well. His shortness of breath is improved since he was started on a new inhaler by his dental service technician. Denies recent weight gain. No orthopnea, no paroxysmal external dyspnea. Leg swelling is stable. Cardiology ROS: Review of Systems Cardiovascular: Positive for dyspnea on exertion (improving) and leg swelling (controlled w/ compression stockings). All other systems reviewed and are negative. Past Medical History He has a past medical history of CHF (congestive heart failure) (CMS/HCC), Coronary artery disease, Heart valve disease, and Hypertension. Surgical History He has a past surgical history that includes Shoulder surgery; Hernia repair; Cardiac catheterization; and Coronary stent placement. Social History He reports that he quit smoking about 13 years ago. His smoking use included cigarettes. He started smoking about 74 years ago. He has never used smokeless tobacco. He reports current alcohol use. No history on file for drug use. Family History Family History Problem Relation Name Age of Onset No Known Problems Mother No Known Problems Father Allergies Penicillins Medications Current Outpatient Medications: atorvastatin (Lipitor) 40 mg tablet, atorvastatin 40 mg tablet, Disp: , Rfl: bumetanide (Bumex) 0.5 mg tablet, Take 2 mg by mouth in the morning and at bedtime., Disp: , Rfl: carvedilol (Coreg) 3.125 mg tablet, every 12 (twelve) hours., Disp: , Rfl: clopidogrel (Plavix) 75 mg tablet, clopidogrel 75 mg tablet TAKE ONE TABLET BY MOUTH DAILY, Disp: , Rfl: cyanocobalamin (Vitamin B-12) 1,000 mcg tablet, Take 1,000 mcg by mouth in the morning., Disp: , Rfl: ferrous sulfate 325 (65 Fe) MG tablet, Take 65 mg by mouth with breakfast., Disp: , Rfl: glimepiride (Amaryl) 2 mg tablet, , Disp: , Rfl: glycopyrrolate-formoteroL (Bevespi Aerosphere) 9-4.8 mcg HFA aerosol inhaler, Inhale 2 puffs in the morning and at bedtime., Disp: , Rfl: hydrOXYzine HCL (Atarax) 25 mg tablet, hydroxyzine HCl 25 mg tablet, Disp: , Rfl: magnesium oxide (Mag-Ox) 400 mg tablet, 420 mg in the morning., Disp: , Rfl: meclizine (Antivert) 25 mg tablet, meclizine 25 mg tablet, Disp: , Rfl: pantoprazole (ProtoNix) 40 mg EC tablet, pantoprazole 40 mg tablet,delayed release, Disp: , Rfl: SITagliptin phosphate (Januvia) 50 mg tablet, Januvia 50 mg tablet, Disp: , Rfl: tamsulosin (Flomax) 0.4 mg 24 hr capsule, Take 0.4 mg by mouth in the morning., Disp: , Rfl: Last Recorded Vitals BP 107/67 (BP Location: Left arm, Patient Position: Sitting) Pulse 91 Ht 1.689 m (5' 6.5 ) Wt 87.1 kg (192 lb) SpO2 96% BMI 30.53 kg/m??? Physical Examination: GENERAL: alert and oriented x3, well developed, in no acute distress. HEAD: atraumatic, normocephalic. EYES: ROMA, EOMI. NECK: trachea midline, no JVD present, no carotid bruits present. CARDIAC: S1, S2 present. RRR. No murmur, rubs, or gallops. RESPIRATORY: CTAB, no increased effort of breathing, no rales, rhonchi, or wheezing. ABDOMEN: soft, nontender, nondistended. EXTREMITIES: no lower extremity edema, peripheral pulses are 2+ bilaterally. No rash/skin discoloration present. NEURO: strength/sensation equal and symmetric in bilateral upper and lower extremities. PSYCH: appropriate mood, affect, and judgement. Imaging and other tests Stress test: 04/02/2023 Small fixed defect distal anterior wall and apex, possibly apical thinning No reversible ischemia Normal exercise stress test Echo: 04/01/2023 The left ventricular systolic function is at lower limits of normal. LVEF is 50 to 55%. Normal right ventricular size and function Mild to moderate atrial dilatation Moderate aortic stenosis Echocardiogram 03/08/2022: Left ventricular systolic function is mildly reduced. EF is 45 to 50%. Possible wall motion abnormality in the basal inferior and inferoseptal segments. Normal right ventricular systolic function. Grade 2 diastolic dysfunction. Moderate aortic valve stenosis. Mild to moderate mitral regurgitation. Mildly elevated right-sided pressures. Assessment: Coronary atherosclerosis s/p LAD BMS 01/18/2019 Unstable angina - worsening dyspnea Heart failure with midrange EF Aortic valve stenosis; moderate Essential hypertension Grade 2 diastolic dysfunction Dyslipidemia Peripheral veno (more content not included)... [facility] 10-30-2023 History of Present illness Narrative Associated Problem(s): PAD (peripheral artery disease) ([facility]) Symptoms stable and follow up with vascular surgery. Associated Problem(s): Skin candidiasis Developed rash and use cream PRN. Associated Problem(s): Type 2 diabetes mellitus with microalbuminuria, without long-term current use of insulin (CMS/HCC) Reports BS elevated and follow up with endocrinology. Stick to ADA diet and limit carbs. Associated Problem(s): Primary osteoarthritis of shoulders, bilateral Mild pain but tolerable and use OTC PRN. Associated Problem(s): Gastroesophageal reflux disease without esophagitis Symptoms controlled with protonix and continue. Associated Problem(s): Chronic heart failure with preserved ejection fraction (HFpEF) (CMS/HCC) Edema stable and continue medication. Wear compression stockings daily. Elevated legs PRN. Associated Problem(s): Benign essential hypertension (CMS/HCC) BP controlled and monitor PRN. Subjective Patient ID: Todd Suarez is a 87 y.o. male who presents for Follow-up. F/u DM, HTN, CHF, OA shoulder, and GERD. Patient doing well today. Following with endocrinology and reports A1C elevated. Checking BS and doesn't remember numbers but states remains elevated. Tries to eat well and stick to ADA diet. Denies signs of elevated BS such as polyuria, polyphagia or polydipsia. Checking BP PRN and typically controlled. BP normal today. Taking medication daily and tolerating without side effects. Edema controlled with medication. Mild swelling at end of day and if on feet a lot. Edema improved in am and with elevation. OA shoulder stable. Pain in right shoulder and decreased ROM. At times limiting activity but pain tolerable. GERD controlled with omeprazole. Denies epigastric pain or burning and not waking up with symptoms. Review of Systems Constitutional: Negative for fatigue. Respiratory: Negative for cough, shortness of breath and wheezing. Cardiovascular: Negative for chest pain and palpitations. Gastrointestinal: Negative for abdominal pain, diarrhea, nausea and vomiting. Genitourinary: Negative for dysuria. Objective Physical Exam Constitutional: General: He is not in acute distress. Appearance: Normal appearance. HENT: Head: Normocephalic. Right Ear: Tympanic membrane and ear canal normal. Left Ear: Tympanic membrane and ear canal normal. Eyes: Extraocular Movements: Extraocular movements intact. Pupils: Pupils are equal, round, and reactive to light. Cardiovascular: Rate and Rhythm: Normal rate and regular rhythm. Heart sounds: No murmur heard. No friction rub. No gallop. Pulmonary: Breath sounds: Normal breath sounds. No wheezing, rhonchi or rales. Abdominal: General: Bowel sounds are normal. There is no distension. Palpations: Abdomen is soft. Tenderness: There is no abdominal tenderness. There is no guarding or rebound. Musculoskeletal: Left lower leg: No edema. Neurological: Mental Status: He is alert. Assessment/Plan Problem List Items Addressed This Visit Benign essential hypertension ([facility]) BP controlled and monitor PRN. Chronic heart failure with preserved ejection fraction (HFpEF) ([facility]) Edema stable and continue medication. Wear compression stockings daily. Elevated legs PRN. Primary osteoarthritis of shoulders, bilateral Mild pain but tolerable and use OTC PRN. Type 2 diabetes mellitus with microalbuminuria, without long-term current use of insulin ([facility]) - Primary Reports BS elevated and follow up with endocrinology. Stick to ADA diet and limit carbs. Gastroesophageal reflux disease without esophagitis Symptoms controlled with protonix and continue. Skin candidiasis Developed rash and use cream PRN. Relevant Medications clotrimazole (Lotrimin) 1 % cream documented in this encounter [facility] 08-04-2023 Evaluation note Encounter Date Diagnosis Assessment Notes Jul, Benign prostatic hyperplasia with lower urinary tract symptoms (ICD-10 - N40.1) [email or web address] Other 10-26-2023 Evaluation note* Encounter Date Diagnosis Assessment Notes Treatment Notes Treatment Clinical Notes Jun, 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 Patient likely has diabetic nephropathy and possible CRS Baseline creatinine fluctuate between 1.3-1.7 depending on cardiac function and diuretics doses SCr this visit is 1.64 mg deciliter for this visit Pro/Cr is WNL. UA is completely benign Continue current dose of Bumex Blood pressures is well controlled Keep Hgb A1c at target to preserve kidney function I asked the patient to keep diabetes under good control and to avoid NSAID use. I will follow-up with the patient 4 months Jun, Primary hypertension (ICD-10 - I10) Blood pressure seems well controlled at home . please keep systolic blood pressure between 140-150. I will continue same dose of blood pressure medications Jun, Anemia, unspecified type (ICD-10 - D64.9) Hemoglobin remians > 12 ith iron supplement and Vb12 continue iron supplement Jun, Localized edema (ICD-10 - R60.0) Will continue Bumex as above. advised low Na diet Jun, Hypocalcemia (ICD-10 - E83.51) Today calcium level has improved with calcium supplement. currently off supplement. total Ca level is 8.9. No need for replacement. Will continue to monitor the level Jun, Iron deficiency (ICD-10 - E61.1) Will continue oral iron supplement. Iron Sat is adequate Jun, Hypomagnesemia (ICD-10 - E83.42) Mg is 1.1 Jun, Benign prostatic hyperplasia with lower urinary tract symptoms (ICD-10 - N40.1) Will continue Flomax 0.4 mg PO at HS. Jun, Other obstructive an d reflux uropathy (ICD-10 - N13.8) [email or web address] Other 08-09-2023 NoteCardiology Clinic Note Subjective Todd D Suarez is a 87 y.o. 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 Patient Active Problem List Diagnosis Anemia Aortic valve stenosis B12 deficiency Bilateral carotid bruits Bilateral impacted cerumen Chronic eczematous otitis externa of both ears Chronic kidney disease, stage 3b ([facility]) Hypertension Coronary atherosclerosis Diastolic heart failure (CMS/HCC) Dizziness Dyspnea Iron deficiency anemia Melena PAD (peripheral artery disease) ([facility]) Peripheral neuropathy Syncope Type 2 diabetes mellitus with chronic kidney disease, without long-term current use of insulin ([facility]) Family History Problem Relation Name Age of Onset No Known Problems Mother No Known Problems Father Social History Tobacco Use Smoking status: Former Types: Cigarettes Start date: 09/1949 Quit date: 2010 Years since quittin.6 Smokeless tobacco: Never Substance Use Topics Alcohol use: Yes Todd Suarez is a 87 y.o. year old male patient with HFmrEF 45-50% (03/08/2022), aortic valve stenosis, CAD s/p LAD BMSx2 01/18/2019, and CKD. He was recommended conservative management for mildly reduced EF with wall motion abnormalities on echo due to advanced age and comorbidities. He follows with nephrology for diuresis management. Update: 11/11/[address] Mac in 03/2022. He has been doing well without concerns. His blood sugars have been elevated, follows with endocrinology. Update: 03/10/2023 Follow up from nephrology apt on 03/07/23. States his factory expert heard a rattling in his back and told him to follow up with his gasoline tester. Complains of shortness of breathe with exertion, worse in the mornings. Update: 04/23/2023 Dyspnea has which has improved since starting a new inhaler He follows with Dr. Gallegos (pulmonology) for COPD He has right leg pain which occurs at night, no pain with ambulation Denies syncope, vision loss, hemiparesis or stroke-like symptoms Review of Systems Cardiovascular: Positive for dyspnea on exertion and leg swelling. Negative for chest pain, irregular heartbeat, near-syncope, orthopnea, palpitations, paroxysmal nocturnal dyspnea and syncope. Objective Visit Vitals BP 118/60 (BP Location: Left arm, Patient Position: Sitting, BP Cuff Size: Adult) Pulse 74 Wt 86.4 kg (190 lb 6.4 oz) SpO2 94% BMI 30.27 kg/m??? Smoking Status Former BSA 2.01 m??? Physical Exam General: Awake, alert, in NAD Pulm: Breath sounds clear to ascultation bilaterally with no wheeze, crackles or rhonchi Cards: Regular rate and rhythm, S1, S2. No S3 or S4 gallop. Murmur: none Abd: Soft, Nontender, physiologic bowel sounds are present Extr: Lower extremity edema: wearing compression stockings, none DP pulses:2+ Skin: warm, dry, well perfused Neuro: A&Ox3, No gross deficits Allergies Allergies Allergen Reactions Penicillins Nausea And Vomiting and Unknown Medications Current Outpatient Medications: atorvastatin (Lipitor) 40 mg tablet, atorvastatin 40 mg tablet, Disp: , Rfl: bumetanide (Bumex) 0.5 mg tablet, Take 2 mg by mouth in the morning and at bedtime., Disp: , Rfl: carvedilol (Coreg) 3.125 mg tablet, every 12 (twelve) hours., Disp: , Rfl: clopidogrel (Plavix) 75 mg tablet, clopidogrel 75 mg tablet TAKE ONE TABLET BY MOUTH DAILY, Disp: , Rfl: cyanocobalamin (Vitamin B-12) 1,000 mcg tablet, Take 1,000 mcg by mouth in the morning., Disp: , Rfl: ferrous sulfate 325 (65 Fe) MG tablet, Take 65 mg by mouth with breakfast., Disp: , Rfl: glimepiride (Amaryl) 2 mg tablet, , Disp: , Rfl: glycopyrrolate-formoteroL (Bevespi Aerosphere) 9-4.8 mcg HFA aerosol inhaler, Inhale 2 puffs in the morning and at bedtime., Disp: , Rfl: hydrOXYzine HCL (Atarax) 25 mg tablet, hydroxyzine HCl 25 mg tablet, Disp: , Rfl: magnesium oxide (Mag-Ox) 400 mg tablet, 420 mg in the morning., Disp: , Rfl: meclizine (Antivert) 25 mg tablet, meclizine 25 mg tablet, Disp: , Rfl: pantoprazole (ProtoNix) 40 mg EC tablet, pantoprazole 40 mg tablet,delayed release, Disp: , Rfl: SITagliptin phosphate (Januvia) 50 mg tablet, Januvia 50 mg tablet, Disp: , Rfl: tamsulosin (Flomax) 0.4 mg 24 hr capsule, Take 0.4 mg by mouth in the morning., Disp: , Rfl: Recent Labs 03/10/2023 WBC6.26.2, hemoglobin 13, hematocrit 38.8, Platelets 163 Sodium 139, potassium 4.2, chloride 100, CO2 27.1, BUN 60, serum creatinine 2.32, estimated GFR 27% 09/18/2022 CBC: WBC 6.8, hemoglobin 12.6, hematocrit 37.2, platelets 172 CMP: Sodium 139, potassium 4.1, chloride 100, CO2 30.4, glucose 193, creatinine 1.3, GFR 52%, ALT 82 Imaging and other tests Stress test: 04/02/2023 Small fixed defect distal anterior wall and apex, possibly apical thinning No reversible ischemia Normal exercise stress test Echo: 04/01/2023 The left ventricular systolic fun (more content not included)...[facility] Chief Complaint: Follow up HPI: Todd Suarez is a 87 y.o. male Follow up from nephrology apt on 03/07/23. States his factory expert heard a rattling in his back and told him to follow up with his gasoline tester. Complains of shortness of breathe with exertion, worse in the mornings. 87-year-old with a history of coronary artery disease, s/p PCI of the LAD in 2019, moderate aortic stenosis and chronic kidney disease stage III; he underwent a right heart catheterization 07/2020 This showed normal filling pressures. He has continued to have shortness of breath and this has apparently worsened over the past several months. He was seen in his factory expert office; was felt to be volume overloaded. His Bumex was increased. Cardiology ROS: Review of Systems Cardiovascular: Positive for dyspnea on exertion. Hematologic/Lymphatic: Bruises/bleeds easily (on blood thinner). Genitourinary: Positive for flank pain (Left side). All other systems reviewed and are negative. Past Medical History He has a past medical history of CHF (congestive heart failure) (CMS/HCC), Coronary artery disease, Heart valve disease, and Hypertension. Surgical History He has a past surgical history that includes Shoulder surgery; Hernia repair; Cardiac catheterization; and Coronary stent placement. Social History He reports that he quit smoking about 12 years ago. His smoking use included cigarettes. He started smoking about 73 years ago. He has never used smokeless tobacco. He reports current alcohol use. No history on file for drug use. Family History Family History Problem Relation Name Age of Onset No Known Problems Mother No Known Problems Father Allergies Penicillins Medications Current Outpatient Medications: atorvastatin (Lipitor) 40 mg tablet, atorvastatin 40 mg tablet, Disp: , Rfl: bumetanide (Bumex) 0.5 mg tablet, Take 0.5 mg by mouth., Disp: , Rfl: carvedilol (Coreg) 3.125 mg tablet, every 12 (twelve) hours., Disp: , Rfl: clopidogrel (Plavix) 75 mg tablet, clopidogrel 75 mg tablet TAKE ONE TABLET BY MOUTH DAILY, Disp: , Rfl: cyanocobalamin (Vitamin B-12) 1,000 mcg tablet, Take 1,000 mcg by mouth in the morning., Disp: , Rfl: ferrous sulfate 325 (65 Fe) MG tablet, Take 65 mg by mouth with breakfast., Disp: , Rfl: glimepiride (Amaryl) 2 mg tablet, , Disp: , Rfl: hydrOXYzine HCL (Atarax) 25 mg tablet, hydroxyzine HCl 25 mg tablet, Disp: , Rfl: magnesium oxide (Mag-Ox) 400 mg tablet, 420 mg in the morning., Disp: , Rfl: meclizine (Antivert) 25 mg tablet, meclizine 25 mg tablet, Disp: , Rfl: pantoprazole (ProtoNix) 40 mg EC tablet, pantoprazole 40 mg tablet,delayed release, Disp: , Rfl: SITagliptin phosphate (Januvia) 50 mg tablet, Januvia 50 mg tablet, Disp: , Rfl: Last Recorded Vitals BP 97/65 (BP Location: Left arm, Patient Position: Sitting, BP Cuff Size: Adult) Pulse 102 Ht 1.689 m (5' 6.5 ) Wt 86.8 kg (191 lb 6.4 oz) SpO2 96% BMI 30.43 kg/m??? Physical Examination: GENERAL: alert and oriented x3, well developed, in no acute distress. HEAD: atraumatic, normocephalic. EYES: ROMA, EOMI. NECK: trachea midline, no JVD present, no carotid bruits present. CARDIAC: S1, S2 present. RRR. No murmur, rubs, or gallops. RESPIRATORY: Decreased air entry, coarse crackles over the right lower lobe ABDOMEN: soft, nontender, nondistended. EXTREMITIES: no lower extremity edema, peripheral pulses are 2+ bilaterally. No rash/skin discoloration present. NEURO: strength/sensation equal and symmetric in bilateral upper and lower extremities. PSYCH: appropriate mood, affect, and judgement. Echocardiogram 03/04/2022 Global left ventricular systolic function is 45 to 50%. Possible wall motion abnormality in the basal inferior and inferoseptal segments. Normal right ventricular systolic function. Grade 2 diastolic dysfunction. Moderate aortic valve stenosis. Mild to moderate mitral regurgitation. Mildly elevated right-sided pressures. Assessment: Coronary atherosclerosis s/p LAD BMS 01/18/2019 Unstable angina - worsening dyspnea Heart failure with midrange EF Aortic valve stenosis; moderate Essential hypertension Grade 2 diastolic dysfunction Dyslipidemia Peripheral venous insufficiency Chronic kidney disease Bilateral stenosis of carotid artery; the patient follows with vascular surgery Diabetes mellitus type 2 without complication Anemia Plan: Routine labs; CBC, CMP, and BNP A 2 view chest x-ray will be obtained A complete echocardiogram to evaluate ejection fraction, diastology, valvular function and RVSP Given his worsening shortness of breath (anginal equivalent?), the reduction in EF on prior echocardiogram, and the duration of time since his last coronary revascularization, we will order a Lexiscan stress test Return to clinic following testing Jessy Lamas MD, MPH, FACC, FSCAI, FSVM Interventional C (more content not included)...[facility]06-23-2023 Evaluation note* Encounter Date Diagnosis Assessment Notes Treatment Notes Treatment Clinical Notes Feb, 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 Patient likely has diabetic nephropathy and possible CRS Baseline creatinine fluctuate between 1.3-1.7 depending on cardiac function and diuretics doses SCr this visit is 1.7 mg deciliter for this visit Pro/Cr is WNL. UA is completely benign Patient needs higher dose of diuretics. Will increase Bumex to 2 mg PO BID Blood pressures is slightly elevated here in the clinic but well controlled at home. I asked the patient to keep diabetes under good control and to avoid NSAID use. I will follow-up with the patient 4 months Feb, Primary hypertension (ICD-10 - I10) Blood pressure seems well controlled at home . please keep systolic blood pressure between 140-150. I will continue same dose of blood pressure medications Patient has lung crackles. I asked the patient to take Bumex 2 mg PO BID. I aksed him to go to ED if breathing does not improve with higher diruetics dose. Denied chest pain Feb, Anemia, unspecified type (ICD-10 - D64.9) Hemoglobin remians > 12 ith iron supplement and Vb12 continue iron supplement Feb, Localized edema (ICD-10 - R60.0) Needs higher dose of diuretics. Will increase Bumex as above. advised low Na diet Feb, Hypocalcemia (ICD-10 - E83.51) Today calcium level has improved with calcium supplement. Feb, Iron deficiency (ICD-10 - E61.1) recent Injectafer x 2 since last visit. Will continue oral iron supplement Feb, Hypomagnesemia (ICD-10 - E83.42) Mg is slightly better. continue supplement Feb, Benign prostatic hyperplasia with lower urinary tract symptoms (ICD-10 - N40.1) Will add Flomax 0.4 mg PO at HS. 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 Review of Systems Constitutional: Positive for malaise/fatigue and weight gain. Respiratory: Positive for wheezing. Musculoskeletal: Positive for muscle cramps.[facility] 11-11-2022 NoteCardiology Clinic Note Subjective Todd Suarez is a 86 y.o. 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 Last saw Dr. Mac in 03/2022. He was recommended conservative management despite mildly reduced EF with wall motion abnormalities on echo due to advanced age and comorbidities. He follows with nephrology for diuresis management. He has been doing well without concerns. His blood sugars have been elevated, follows with endocrinology. There is no problem list on file for this patient. Family History Problem Relation Name Age of Onset ??? No Known Problems Mother ??? No Known Problems Father Social History Tobacco Use ??? Smoking status: Former Types: Cigarettes Start date: 09/1949 Quit date: 2010 Years since quittin.1 ??? Smokeless tobacco: Never Substance Use Topics ??? Alcohol use: Yes ROS Objective Visit Vitals BP 107/60 (BP Location: Left arm, Patient Position: Sitting, BP Cuff Size: Large adult) Pulse 67 Ht 1.676 m (5' 6 ) Wt 87.5 kg (192 lb 12.8 oz) SpO2 96% BMI 31.12 kg/m??? Smoking Status Former BSA 2.02 m??? Physical Exam General: Awake, alert, in NAD Pulm: Breath sounds clear to ascultation bilaterally with no wheeze, crackles or rhonchi Cards: Regular rate and rhythm, S1, S2. No S3 or S4 gallop. Murmur: none Abd: Soft, Nontender, physiologic bowel sounds are present Extr: Lower extremity edema: None. DP pulses:2+ Skin: warm, dry, well perfused Neuro: A&Ox3, No gross deficits Allergies Allergies Allergen Reactions ??? Penicillins Nausea And Vomiting and Unknown Medications Current Outpatient Medications: ??? atorvastatin (Lipitor) 40 mg tablet, atorvastatin 40 mg tablet, Disp: , Rfl: ??? bumetanide (Bumex) 0.5 mg tablet, Take 0.5 mg by mouth., Disp: , Rfl: ??? carvedilol (Coreg) 3.125 mg tablet, every 12 (twelve) hours., Disp: , Rfl: ??? clopidogrel (Plavix) 75 mg tablet, clopidogrel 75 mg tablet TAKE ONE TABLET BY MOUTH DAILY, Disp: , Rfl: ??? cyanocobalamin (Vitamin B-12) 1,000 mcg tablet, Take 1,000 mcg by mouth in the morning., Disp: , Rfl: ??? ferrous sulfate 325 (65 Fe) MG tablet, Take 65 mg by mouth with breakfast., Disp: , Rfl: ??? glimepiride (Amaryl) 2 mg tablet, , Disp: , Rfl: ??? hydrOXYzine HCL (Atarax) 25 mg tablet, hydroxyzine HCl 25 mg tablet, Disp: , Rfl: ??? magnesium oxide (Mag-Ox) 400 mg tablet, 420 mg in the morning., Disp: , Rfl: ??? meclizine (Antivert) 25 mg tablet, meclizine 25 mg tablet, Disp: , Rfl: ??? pantoprazole (ProtoNix) 40 mg EC tablet, pantoprazole 40 mg tablet,delayed release, Disp: , Rfl: ??? SITagliptin phosphate (Januvia) 50 mg tablet, Januvia 50 mg tablet, Disp: , Rfl: Recent Labs 09/18/2022 CBC: WBC 6.8, hemoglobin 12.6, hematocrit 37.2, platelets 172 CMP: Sodium 139, potassium 4.1, chloride 100, CO2 30.4, glucose 193, creatinine 1.3, GFR 52%, ALT 82 Imaging and other tests Echocardiogram 03/08/2022: Left ventricular systolic function is mildly reduced. EF is 45 to 50%. Possible wall motion abnormality in the basal inferior and inferoseptal segments. Normal right ventricular systolic function. Grade 2 diastolic dysfunction. Moderate aortic valve stenosis. Mild to moderate mitral regurgitation. Mildly elevated right-sided pressures. ECHO 12/18/21 -LVEF 50-55%, normal RV size with borderline systolic function, moderate , moderate biatrial dilation Stress test: 08/23/2020 No reversible ischemia on imaging Nondiagnostic exercise test RHC: 07/28/2020 FINAL IMPRESSION: Normal right heart catheterization. Right atrial pressure mean 3. RV 30/8. PA 29/15 (mean 20). Pulmonary capillary wedge pressure mean 8. Rina cardiac output 5.3 L/minute. Rina cardiac index 2.6 L/minute per meter squared. Oxygen saturation, PA sat 56%, AO sat 97%. Carotid duplex: 07/26/2020 Extensive atherosclerotic plaque. 74% area reduction proximal right internal carotid artery, 83% area reduction proximal left internal carotid artery. Coronary angiography: 01/18/2019 1. Severe stenosis of the left anterior descending coronary artery, successfully treated by balloon angioplasty and bare metal stent placement. 2. Mild to moderate disease of the left circumflex coronary artery. 3. Mild disease of the right coronary artery. 4. Mildly reduced global left ventricular systolic function by noninvasive imaging. 5. [id number] elevated right sided pressures. 6. Normal cardiac output/index. 5. Moderate systemic hypertension. 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 He is not on RAAS inhibition or MRA due to underlying CKD for which he is following with nephrology. 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 Baseline creatinine fluctuate between 1.0-3.0 depending on blood pressure and diuretics last creatinine was 1.3 mg deciliter for this visit Pro/Cr 1.3 mg.mg/ No on ACEI/ARB due to h/o HAN Blood pressures well controlled. volume status well controlled with current Bumex dose I asked the patient to keep diabetes under good control and to avoid NSAID use. I will follow-up with the patient 6 months Sep, Primary hypertension (ICD-10 - I10) Blood pressure seems well controlled . please keep systolic blood pressure between 140-150. I will continue same dose of blood pressure medications including diuretics Sep, Anemia, unspecified type (ICD-10 - D64.9) Hemoglobin improved from 8 to 1.05 to 12.6 g/dL with iron supplement .Iron Sat < 30%. continue iron supplement Sep, Localized edema (ICD-10 - R60.0) Continue same dose of Bumex . advised low Na diet Sep, Hypocalcemia (ICD-10 - E83.51) Today calcium level has improved with calcium supplement. Total calcium level is 9.7 mg/dL. Continue same calcium supplement Sep, Iron deficiency (ICD-10 - E61.1) recent Injectafer x 2 since last visit. iron Sat 38%. Will continue to monitor iro storage. and decide about further IV Iron Sep, Hypomagnesemia (ICD-10 - E83.42) [email or web address] Other 07-19-2022 Evaluation note* Encounter Date Diagnosis Assessment Notes Treatment Notes Treatment Clinical Notes Mar, 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 Baseline creatinine fluctuate between 1.0-3.0 depending on blood pressure and diuretics last creatinine was 0.97 mg deciliter for this visit UA is benign Blood pressures well controlled I asked the patient to increase Bumex from 1 mg p.o. daily to 1 mg in a.m. and 0.5 mg p.m. I asked the patient became diabetes under good control and to avoid NSAID use. I will follow-up with the patient 6 months Mar, Primary hypertension (ICD-10 - I10) Blood pressure seems well controlled . please keep systolic blood pressure between 140-150. I will continue same dose of blood pressure medications Mar, Anemia, unspecified type (ICD-10 - D64.9) Hemoglobin improved from 8 to 1.05 g/dL with 2 dose of Injectafer. Still has iron deficiency. I will schedule II more dose of Injectafer Mar, Localized edema (ICD-10 - R60.0) Patient is currently off hydrochlorothiazide and spironolactone. Only on Bumex 1 mg p.o. daily. Patient is volume expanded. I asked the patient to increase Bumex as above Mar, Hypocalcemia (ICD-10 - E83.51) Today calcium level has improved with calcium supplement. Total calcium level is 9.0 mg/dL. 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 Baseline creatinine fluctuates between 1.5 to 2.3 mg deciliter since 2019. This likely related to blood pressure variation and volume status fluctuation. Creatinine is up to 3.0 mg/dL with adding Bumex. Blood pressure is relatively low. I will stop lisinopril and decrease Aldactone to 25 mg p.o. daily. Follow-up with the patient 2 months UA is benign. Diabetes well controlled Asked the patient to stay away from NSAIDs and to use Tylenol if needed. January, Primary hypertension (ICD-10 - I10) Blood pressure seems well controlled but fluctuates. I will stop lisinopril and reduce spironolactone to 25 mg p.o. daily due to worsening kidney function January, Anemia, unspecified type (ICD-10 - D64.9) Hemoglobin 8.0. Iron saturation 8%. I will give the patient a dose of Injectafer January, Localized edema (ICD-10 - R60.0) Improved with diuresis. Continue Bumex, hydrochlorothiazide and spironolactone January, Hypocalcemia (ICD-10 - E83.51) Total calcium level 5.7 mg/dL. Patient is taking 1 g of calcium supplement twice daily. I will check total calcium level today. If remains low increase to 3 times daily January, Iron deficiency (ICD-10 - E61.1) [email or web address] Other 05-02-2022 Evaluation note* Encounter Date Diagnosis Assessment Notes Treatment Notes Treatment Clinical Notes January, Stage 3b chronic kidney disease (CKD) (ICD-10 - N18.32) January, Localized edema (ICD-10 - R60.0) January, Primary hypertension (ICD-10 - I10) [email or web address] Other Evaluation noteNo InformationNort [employer] Other Evaluation noteNo assessment information available [facility] Work Phone: Evaluation note* Diagnosis Type 2 diabetes mellitus with microalbuminuria, without long-term current use of insulin ([facility])- Primary Chronic heart failure with preserved ejection fraction (HFpEF) (CMS/[facility]) Benign essential hypertension (CMS/HCC) Essential hypertension, benign Primary osteoarthritis of shoulders, bilateral Gastroesophageal reflux disease without esophagitis Esophageal reflux Skin candidiasis Candidiasis of skin and nails PAD (peripheral artery disease) (CMS/HCC) Unspecified peripheral vascular disease documented in this encounter [facility] Narrative - Reported* Type Description Date Medical History DIASTOLIC HEART FAILURE Medical History DYSPNEA Medical History CORONARY ATHEROSCLEROSIS Medical History HYPERTENSION Medical History AORTIC VALVE STENOSIS Medical History PERIPHERAL VENOUS INSUFFICIENCY Medical History SYNCOPE Medical History CHRONIC KIDNEY DISEASE STAGE 3 Medical History BILATERAL STENOSIS OF CAROTID AR TERIES Medical History PERIPHERAL VASCULAR DISEASE Medical History TYPE 2 DIABETES MELLITUS WITHOUT COMPLICATION Medical History ANEMIA Medical History ULCER ON RIGHT LOWER LEG Medical History RASH ON BACK, LEGS, ARMS, BUTTOC [place] Medical History STROKE Surgical History SHOULDER REPLACEMENT ON LEFT Surgical History HERNIA REPAIR X2 Surgical History RIGHT HEART CATH 07/28/2020 Surgical History COMBINED RIGHT AND LEFT HEART C ATHETERIZATION 01/18/2019 Hospitalization History SEE ABOVE [email or web address] Other History general Narrative - Reported* Type Description Date Medical History DIASTOLIC HEART FAILURE Medical History DYSPNEA Medical History CORONARY ATHEROSCLEROSIS Medical History HYPERTENSION Medical History AORTIC VALVE STENOSIS Medical History PERIPHERAL VENOUS INSUFFICIENCY Medical History SYNCOPE Medical History CHRONIC KIDNEY DISEASE STAGE 3 Medical History BILATERAL STENOSIS OF CAROTID AR TERIES Medical History PERIPHERAL VASCULAR DISEASE Medical History TYPE 2 DIABETES MELLITUS WITHOUT COMPLICATION Medical History ANEMIA Medical History ULCER ON RIGHT LOWER LEG Medical History RASH ON BACK, LEGS, ARMS, BUTTOC [place] Medical History STROKE Surgical History SHOULDER REPLACEMENT ON LEFT Surgical History HERNIA REPAIR X2 Surgical History RIGHT HEART CATH 07/28/2020 Surgical History COMBINED RIGHT AND LEFT HEART C ATHETERIZATION 01/18/2019 Surgical History CATARACT REMOVED 02/12/2023 Surgical History CATARACT REMOVED 02/2023 Hospitalization History SEE ABOVE [email or web address] Other Summary Purpose Family History No Family History Records FoundNo Family History Records FoundNo Family History Records FoundNo Family History Records FoundNo Family History Records Found Advance Directives No Advanced Directives Records Found Advance Directive Response Recorded Date/ Time Advance Directives No April 17 022 11:18am Chief Complaint and Reason for Visit Chief Complaint D64.9 N18.32 Additional Source Comments (unrecognized sect ion and content) No Status Records FoundNo Status Records FoundNo Status Records FoundNo Status Records FoundNo Status Records Found INFORMATION SOURCE (unrecogn ized section and content) DATE CREATED AUTHOR 05/22/2020 [employer] [facility] DATE CREATED AUTHOR AUTHOR'S ORGANIZ ATION 09/07/[address] [facility] DATE CREATED AUTHOR AUTHOR'S ORGANIZ ATION 02/21/2023 [facility] DATE CREATED AUTHOR AUTHOR'S ORGANIZ ATION 11/01/2023 [facility] DATE CREATED AUTHOR AUTHOR'S ORGANIZ ATION 11/04/2023 [facility] REASON FOR VISIT (unrecogniz ed section and content) Reason Comments Follow-up REFILLRENAL 4 month Follow upRENAL 6 month Follow upRENAL 2 month Follow upRENAL 3 month Follow upClinical Care Teams (unrecognized sec tion and content) Team Status: Inactive Member Role Status Dates Kaur Robins MD Primary Care Provider, Attending Pro vider Active Team Status: Active Member Role Status Dates Kaur Robins MD Primary Care Provider Active Maintenance Welder Relationship Specialty Start Date End Date Jose Brewer MD [address] [place] [phone] PCP - General Family Medicine 10/06/23 Maintenance Welder Relationship Specialty Start Date End Date Jose Brewer MD [address] [place] [id number] PCP - General Family Medicine 10/06/23 Goals (unrecognized section and content) Goals may be documented in a n alternate section FOR RECORDS PERTAINING TO PATIENTS WHO ARE OR HAVE BEEN ENROLLED IN A CHEMICAL DEPENDENCY/SUBSTANCEABUSE PROGRAM, SOME INFORMATION MAY BE OMITTED. This clinical summary was aggregated from multiple sources. Caution should be exercised in using it in the provision of clinical care. This summary normalizes information from multiple sources, and as a consequence, information in this document may materially change the coding, format and clinical context of patient data. In addition, data may be omitted in some cases. CLINICAL DECISIONS SHOULD BE BASED ON THE PRIMARY CLINICAL RECORDS. [employer] provides no warranty or guarantee of the accuracy or completeness of information in this document.
== END 2023-11-21 13:49 | disposition home or self-care (01) ==
LOC: CT 13:48
PROVIDERS: PCP Family Medicine
DX: R84.5 Abnormal microbiological findings in specimens from respiratory organs and thorax (principal); K57.90 Diverticulosis of intestine, part unspecified, without perforation or abscess without bleeding
CPT/HCPCS: 74176

== ENCOUNTER 2024-01-15 10:08 | Outpatient (OUT) | payer MEDICARE, SELFPAY ==
--- NOTE | 2024-01-15 10:00 | CA_ITS ---
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 Right: - no significant pressure gradients between cuffs - normal MARIEL and TBI Left: - significant pressure gradient between the calf and DP cuff - normal MARIEL and TBI IMpression: - elevated indices (B/L thigh, B/L calf, right DP and left PT) consistent with calcified, noncompressible arterial aparicio, which may underestimate the degree of arterial disease present. - normal arterial evaluation of the lower extremities without hemodynamic impairment of the B/L lower extremities at rest. (right MARIEL 1.76, left MARIEL 1.35) - clincal correlation advised Electronically Signed On 01-15-2024 15:29:47 EDT by ELIDA CHRISTENSEN
--- OUTSIDE RECORDS SUMMARY | 2024-01-15 10:19 | XMS_ITS | CCD ---
Author Organization [facility] Care Team Providers Care [employer] Name Role Phone SELF, REFERRED Referring Unavailable SCOTT BARNETT Admitting Unavailable SCOTT BARNETT Attending Unavailable JOSE BREWER Primary Care Unavailable Kaur Robins Unavailable MD Kaur Robins Primary Care Provider [phone] MD Kaur Robins Attending Provider [phone] KAREEN CRABTREE Attending Unavailable KAREEN CRABTREE Admitting Unavailable NADERER, DR JOSE Dhaliwal Primary Care Unavailable WEST, DR ALVA Johnston Consulting Unavailable WEST, DR ALVA Johnston Attending Unavailable WEST, DR ALVA Johnston Admitting Unavailable NADERER, DR JOSE Dhaliwal Primary Care Unavailable WEST, DR ALVA Johnston Consulting Unavailable WEST, DR ALVA Johnston Attending Unavailable WEST, DR ALVA Johnston Admitting Unavailable NADERER, DR JOSE Dhaliwal Primary Care Unavailable MARTINGABRIELA, DR KENDALL Swanson Consulting Unavailable WEST, DR ALVA Johnston Consulting Unavailable WEST, DR ALVA Johnston Attending Unavailable WEST, DR ALVA Johnston Admitting Unavailable NADERER, DR JOSE Dhaliwal Primary Care Unavailable NADERER, DR JOSE Dhaliwal Primary Care Unavailable WEST, DR ALVA Johnston Attending Unavailable WEST, DR ALVA Johnston Admitting Unavailable WEST, DR ALVA Johnston Consulting Unavailable NADERER, DR JOSE Dhaliwal Primary Care Unavailable WEST, DR ALVA Johnston Consulting Unavailable WEST, DR ALVA Johnston Attending Unavailable WEST, DR ALVA Johnston Admitting Unavailable NADERER, DR JOSE Dhaliwal Primary Care Unavailable RAMY WATKINS Consulting Unavailable RAMY WATKINS Attending Unavailable RAMY WATKINS Admitting Unavailable MISC, DR REYNAGA Consulting Unavailable MISC, DR REYNAGA Attending Unavailable NADERER, DR JOSE Dhaliwal Primary Care Unavailable TONYC, DR REYNAGA Admitting Unavailable KAUR ROBINS Consulting Unavailable KAUR ROBINS Attending Unavailable KAUR ROBINS Admitting Unavailable NADERER, DR JOSE Dhaliwal Primary Care Unavailable JERICA MUÑIZ Attending Unavailable NADERER, DR JOSE Dhaliwal Primary Care Unavailable EARL, JERICA Admitting Unavailable EARLJERICA Consulting Unavailable NADERER, DR JOSE Dhaliwal Primary Care Unavailable MISC, DR REYNAGA Consulting Unavailable MISC, DOCTOR Attending Unavailable MISC, DR REYNAGA Admitting Unavailable BAKHOUS, [...] NADERER, DR JOSE Dhaliwal Primary Care Unavailable [facility], DR KENDALL Swanson Consulting Unavailable Jose Brewer MD Primary Care Provider JOSE BREWER Attending Unavailable Jose Brewer MD Primary Care Provider [phone] SHIVA CHEN Attending Unavailable ELTAHAWY, JESSY Attending Unavailable ELTAHAWY, ORLANDOAB Attending Unavailable BRISA ENCISO Attending Unavailable JOSE BREWER Referring Unavailable JOSE BREWER Primary Care Unavailable BRISA ENCISO Attending Unavailable NADJOSE CLAIRE Referring Unavailable NADALETHEA, JOSE Primary Care Unavailable Allergies Allergy Classification Reported Allergen(s) Allergy Type Date of Onset Reaction(s) Facility (1 source) Penicillin V Drug Allergy stomach upset Thumb Other (5 sources) Penicillin; Translations: [penicillin] Drug Allergy stomach upset [facility] Repository (3 sources) cefdinir; Translations: [CEFDINIR] Drug Allergy 09-15-[address] [facility] Repository (3 sources) cefdinir Drug Allergy 10-08-19 Diarrhea [facility] (5 sources) Penicillins; Translations: [PENICILLINS] Drug Intolerance 08-21-20 21 Diarrhea, Nausea And Vomiting, GI intolerance, Unknown [facility] Work Phone: (3 sources) Shellfish Propensity to adverse reactions 01-29-20 14 Rash [facility] Healthcare (1 source) Penicillins Propensity to adverse reactions to drug 05-05-20 21 Nausea And Vomiting [facility] (1 source) SHELLFISH CONTAINING PRODUCTS; Translations: [SHELLFISH CONTAINING PRODUCTS] Propensity to adverse reactions to food (disorder) 01-29-20 14 [facility] Medications Current Medications Medication Drug Class(es) Dates Sig (Normalized) Sig (Original) [id number] 200 actuat albuterol 0.09 mg/actuat metered dose [...] day Active atorvastatin 40 mg oral tablet (15 sources) HMG-CoA Reductase Inhibitor Start : 04-01 End: 10-30 take 1 tablet by mouth in the morning atorvastatin (LIPITOR) 40 mg tablet Take 1 tablet (40 mg total) by mouth in the morning. 0 04/01/2017 Active bumetanide 0.5 mg oral tablet (13 sources) Loop Diuretic Start : 10-14 take 1 tablet by mouth twice daily before mealtime, then take 4 tablets by mouth twice daily bumetanide (BUMEX) 0.5 mg tablet Take 1 tablet (0.5 mg total) by mouth 2 (two) times a day before meals. Take 4 pills bid 0 10/14/2023 Active Start: 10-23-2021 [facility] Bumex 0.5 MG 2 tabs Orally Once a day for 90 days Oct, Active take 1 tablet by [facility]ne once daily bumetanide (Bumex) 0.5 MG tablet Take 0.5 mg by mouth 1 (one) time each day at the same time. 0 Active take 4 tablets by [facility] in [facility] morning, then take 4 tablets by mouth once daily in the evening Bumex 0.5 MG 4 tabs in am and 4 tab PM Orally Once a day for 30 days Active Calcium Carbonate (12 sources) Start: 01-14-2022 Calcium Carbon ate 1250 (500 Ca) MG 2 Orally bid January, Active Start: 01-14-2022 Calcium Carbon ate 1250 (500 Ca) MG 2 Orally bid for 30 day(s) January, Active take 1 tablet by lynne th in the morning calcium carbonate (OS-SHIRA) 500 mg elemental (1,250 mg) tablet Take 1 tablet (500 mg total) by mouth in the morning. 0 Active take 1 tablet by lynne in the morning calcium carbonate (Os-Shira) 1250 (500 Ca) MG tablet Take 1 tablet by mouth in the morning and 1 tablet before bedtime. 0 Active Calcium Carbonat e 1250 (500 Ca) MG 2 Orally bid Not-Taking Calcium Carbonat e 1250 (500 Ca) MG 2 Orally bid Active carvedilol 6.25 mg oral tablet (13 sources) alpha-Adrenergic Estuardo, beta-Adrenergic Estuardo Start: 05-08-2021 take 1 tablet by mouth twice daily at mealtime carvediloL (COREG) 6.25 mg tablet Take 1 tablet (6.25 mg total) by mouth 2 (two) times a day with meals. 60 tablet 0 05/08/2021 Active carvedilol (Core g) 3.125 MG tablet Take 3.125 mg by mouth. 0 Active take 1 tablet by lynne every twelve hours Carvedilol 12.5 MG 1 tablet with food Orally Twice a day Active chlorthalidone 25 mg oral tablet (5 sources) Thiazide-like Diuretic take 1 tablet by mouth once daily chlorthalidone (HYGROTON) 25 mg tablet Take 1 tablet (25 mg total) by mouth daily. 0 Active clopidogrel 75 mg oral tablet (12 sources) P2Y12 Platelet Inhibitor clopidogrel (Plavix) 75 MG tablet Take 75 mg by mouth. 0 Active clotrimazole 10 mg/ml topical cream (2 sources) Azole Antifungal Start: 024 clotrimazole (Lotrimin) 1 % cream Indications: Skin candidiasis Apply topically 2 (two) times a day 60 g 2 10/30/2023 Active empagliflozin 10 mg oral tablet (3 sources) Sodium-Glucose Cotransporter 2 Inhibitor Start: 024 [...] 1 puff Inhalation Once a day Active 30 actuat fluticasone furoate 0.1 mg/actuat / vilanterol 0.025 mg/actuat dry powder inhaler (1 source) Corticosteroid, beta2-Adrenergic Agonist take 1 puff(s) by inhalation in the morning fluticasone furoate-vilantero L (BREO ELLIPTA) 100-25 mcg/dose blister with device Inhale 1 puff in the morning. 0 Active 120 actuat formoterol fumarate 0.0048 mg/actuat / glycopyrrolate 0.009 mg/actuat metered dose inhaler (3 sources) beta2-Adrenergic Agonist take 2 puff(s) by inhalation in the morning glycopyrrolate-fo rmoteroL (BEVESPI AEROSPHERE) 9-4.8 mcg HFA aerosol inhaler Inhale 2 puffs in the morning and 2 puffs before bedtime. 0 Active glimepiride 4 mg oral tablet (7 sources) Sulfonylurea Start: take 1 tablet by mouth once daily before breakfast glimepiride (AMARYL) 4 mg tablet Take 1 tablet (4 mg total) by mouth every morning before breakfast. 0 11/25/2023 Active Start: 10-01-2022 glimepiride (A maryl) 2 MG tablet Take 2 mg by mouth. 0 10/01/2022 Active hydrOXYzine hydrochloride 25 mg oral tablet (12 sources) Antihistamine hydrOXYzine HCl (Atarax) 25 MG tablet Take 25 mg by mouth. 0 Active ipratropium bromide 0.021 mg/actuat metered dose nasal spray (1 source) Anticholinergic take 2 spray(s) nasal route in the morning ipratropium (ATROVENT) 21 mcg (0.03 %) nasal spray Administer 2 sprays into each nostril in the morning and 2 sprays before bedtime. 0 Active lisinopril 40 mg oral tablet (3 sources) Angiotensin Converting Enzyme Inhibitor take 1 tablet by mouth in the morning lisinopriL (PRINIVIL,ZESTRIL) 40 mg tablet Take 1 tablet (40 mg total) by mouth in the morning. 0 Active take 1 tablet by lynne th every twenty-four hours Lisinopril 10 MG 1 tablet Orally Once a day Active Magnesium (4 sources) Magnesium 400 MG as directed Orally twice daily Active Magnesium Bisglycinate 100 MG (2 sources) Start: 07-10-2023 take 2 tablets by mouth once daily Magnesium Bisglycinate 100 MG 2 tab Orally daily for 30 days Jun, Active magnesium oxide 420 mg oral tablet (7 sources) Start: 10-14-2023 take 1 tablet by mouth in the morning magnesium oxide 420 mg tablet Take 1 tablet by mouth in the morning. 0 10/14/2023 Active End: 10-30-2023 take 1 tablet by mouth in the morning magnesium oxide (Mag-Ox) 400 MG tablet Take 400 mg by mouth in the morning. 0 10/30/2023 Discontinued (Therapy completed) take 1 tablet by lynne th every twenty-four hours Magnesium Oxide 420 MG 1 tablet as needed Orally Once a day Not-Taking magnesium sulfate 0.0277 meq/ml / potassium sulfate 0.0374 meq/ml / sodium sulfate 0.257 meq/ml oral solution (1 source) Start: 05-18-2021 take 177 mL by mouth twice daily SUPREP BOWEL PREP KIT 17.5-3.13-1.6 gram recon soln 177 ml,actual weight, 2 times daily, Oral 177 mL 0 05/18/2021 Active meclizine hydrochloride 25 mg oral tablet (15 sources) Antiemetic take 1 tablet by mouth four times daily as needed for dizziness meclizine (ANTIVERT) 25 mg tablet Take 1 tablet (25 mg total) by mouth 4 (four) times a day as needed for dizziness. 0 Active take 1 tablet by lynne th every twelve hours meclizine (Antivert) 25 MG tablet 25 mg every 12 (twelve) hours. 0 Active pantoprazole 40 mg delayed release oral tablet (13 sources) Proton Pump Inhibitor Start: 05-08-2021 take 1 tablet by mouth once daily before breakfast pantoprazole (PROTONIX) 40 mg EC tablet Take 1 tablet (40 mg total) by mouth every morning before breakfast. 30 tablet 0 05/08/2021 Active pioglitazone 15 mg oral tablet (5 sources) Peroxisome Proliferator Receptor alpha Agonist, Peroxisome Proliferator Receptor gamma Agonist, Thiazolidinedione Start: 03-27-2021 take 1 tablet by mouth in the morning pioglitazone (ACTOS) 15 mg tablet Take 1 tablet (15 mg total) by mouth in the morning. 0 03/27/2021 Active ProAir RespiClick 90 MCG (9 sources) ProAir RespiClic k 90 MCG 2 inhalations every 4 to 6 hours as needed Active SITagliptin 50 mg oral tablet (13 sources) Dipeptidyl Peptidase 4 Inhibitor take 1 tablet by mouth in the morning JANUVIA 50 mg tablet Take 1 tablet (50 mg total) by mouth in the morning. 0 Active spironolactone 50 mg oral tablet (6 sources) Aldosterone Antagonist take 1 tablet by mouth in the morning spironolactone (ALDACTONE) 50 mg tablet Take 1 tablet (50 mg total) by mouth in the morning. 0 Active take 1 tablet by lynne every twenty-four hours Spironolactone 25 MG 1 tablet Orally Onc e a day Not-Taking tamsulosin hydrochloride 0.4 mg oral capsule (7 sources) alpha-Adrenergic Estuardo Start: 10-31-2023 take 1 capsule by mouth once daily tamsulosin (FLOMAX) 0.4 mg capsule Take 1 capsule (0.4 mg total) by mouth nightly. 0 10/31/2023 Active Start: 03-07-2023 take 1 capsule by [facility] every twenty-four hours Flomax 0.4 MG 1 capsule Orally Once a day for 30 days Feb, Active take 1 capsule by [facility] every twenty-four hours in the morning tamsulosin (Flomax) 0.4 MG 24 hr capsule Take 0.4 mg by mouth in the morning. 0 Active Trelegy Ellipta 100-62.5-25 MCG/INH (2 sources) take 1 puff(s) by inhalation once daily Trelegy Ellipta 100-62.5-25 MCG/INH 1 puff Inhalation Once a day Active vitamin b12 1 mg oral tablet (4 sources) Vitamin B12 Start: 05-09-2021 take 1 tablet by mouth once daily cyanocobalamin 1000 MCG tablet Take 1 tablet (1,000 mcg total) by mouth daily. 30 tablet 0 05/09/2021 Active Vitamin B12 1000 MCG (9 sources) take 1 tablet by mouth once daily Vitamin B12 1000 MCG 1 [...] package instructions 1 each 0 05/12/2023 Active Problems Active Problems Problem Classification Problem Date Documented Date Episodic/Chronic Administrative/social admission (1 source) Dietary counseling and surveillance; Translations: [DIETARY COUNSELING AND SURVEILLANCE] Onset: 12-29-2022 Episodic Chronic kidney disease (19 sources) Chronic renal failure; Translations: [Chronic kidney disease, unspecified] Onset: 05-05-2021 10-30-2023 Chronic Chronic kidney disease (11 sources) Chronic kidney disease; Translations: [CHRONIC KIDNEY DISEASE STAGE 3B] Onset: 05-05-2021 Resolved: 04-02-2022 Chronic obstructive pulmonary disease and bronchiectasis (2 sources) Chronic obstructive lung disease; Translations: [Chronic obstructive pulmonary disease, unspecified] Onset: 10-30-2023 10-30-2023 Chronic Congestive heart failure; nonhypertensive (10 sources) Chronic diastolic (congestive) heart failure; Translations: [Chronic heart failure co-occurrent with normal ejection fraction] Onset: 04-08-2022 Chronic Coronary atherosclerosis and other heart disease (6 sources) Coronary arteriosclerosis; Translations: [Atherosclerotic heart disease of [place] coronary artery without angina pectoris] Onset: 04-23-2023 10-30-2023 Chronic Deficiency and other anemia (10 sources) Anemia, unspecified; Translations: [ANEMIA UNSPECIFIED] Onset: 01-22-2022 Resolved: 04-02-2022 Episodic Diabetes mellitus with complications (9 sources) Type 2 diabetes mellitus with other diabetic kidney complication; Translations: [Type 2 diabetes mellitus] Onset: 04-08-2017 Chronic Disorders of lipid metabolism (5 sources) Mixed hyperlipidemia; Translations: [Dyslipidemia] Onset: 12-29-2022 10-30-2023 Chronic Esophageal disorders (4 sources) Gastroesophageal reflux disease without esophagitis; Translations: [Gastro-esophageal reflux disease without esophagitis] Onset: 10-30-2023 10-30-2023 Chronic Essential hypertension (20 sources) Essential hypertension; Translations: [Essential (primary) hypertension] Onset: 04-08-2017 Resolved: 04-02-2022 Chronic Heart valve disorders (10 [...] skin and nail] Onset: 10-30-2023 10-30-2023 Episodic Occlusion or stenosis of precerebral arteries (3 sources) Occlusion and stenosis of bilateral carotid arteries; Translations: [Occlusion and stenosis of left carotid artery] Onset: 04-23-2023 Chronic Osteoarthritis (4 sources) Bilateral shoulder osteoarthritis; Translations: [Primary osteoarthritis, right shoulder] Onset: 10-30-2023 10-30-2023 Chronic Other diseases of kidney and ureters (3 sources) Acquired obstructive defect of renal pelvis; Translations: [Other obstructive and reflux uropathy] Episodic Other diseases of kidney and ureters (2 sources) Other obstructive and reflux uropathy Episodic Other ear and sense organ disorders (1 source) Chronic eczema of external auditory canal; Translations: [Other otitis externa, bilateral] Onset: 10-15-2018 10-15-2018 Chronic Other nervous system disorders (1 source) Peripheral nerve disease ; Translations: [Polyneuropathy, unspecified] Onset: 05-05-2021 05-05-2021 Chronic Other nutritional; endocrine; and metabolic disorders (7 sources) Hypocalcemia; Translations: [Hypocalcemia] Chronic Other nutritional; endocrine; and metabolic disorders (6 sources) Hypocalcemia; Translations: [HYPOCALCEMIA] Onset: 01-22-2022 Resolved: 04-02-2022 Chronic Other nutritional; endocrine; and metabolic disorders (4 sources) Hypomagnesemia; Translations: [Hypomagnesemia] Chronic Other nutritional; endocrine; and metabolic disorders (4 sources) Hypomagnesemia; Translations: [HYPOMAGNESEMIA] Onset: 11-15-2022 Chronic Peripheral and visceral atherosclerosis (13 sources) Peripheral vascular disease; Translations: [Peripheral vascular disease, unspecified] Onset: 06-11-2021 10-30-2023 Chronic Residual codes; unclassified (7 sources) Localized edema; Translations: [LOCALIZED EDEMA] Onset: 01-14-2022 Resolved: 04-02-2022 Episodic Unclassified (1 source) Carotid Artery Disease Onset: 12-25-2023 Unclassified (1 source) Bilateral Carotid Bruits Onset: 12-25-2023 Past or Other Problems Problem Classification Problem Date Documented Da te Episodic/Chronic Cardiac dysrhythmias (4 sources) Palpitations; Translations: [PALPITATIONS] Onset: 3 Episodic Deficiency and other anemia (1 source) Anemia; Translations: [Anemia, unspecified] Onset: 1 05-06-2021 Episodic Deficiency and other anemia (1 source) Iron deficiency anemia; Translations: [Iron deficiency anemia, unspecified] Onset: 1 05-06-2021 Episodic Gastrointestinal hemorrhage (1 source) Melena; Translations: [Melena] Onset: 1 05-06-2021 Episodic Nutritional deficiencies (9 sources) Iron deficiency; Translations: [Cobalamin deficiency] Onset: 1 Resolved: 2 Episodic Other circulatory disease (1 source) Carotid bruit; Translations: [Other specified symptoms and signs involving the circulatory and respiratory systems] Onset: 1 05-05-2021 Episodic Other diseases of veins and lymphatics (3 sources) Venous insufficiency of leg; Translations: [Venous insufficiency (chronic) (peripheral)] Onset: 0 10-30-2023 Episodic Other ear and sense organ disorders (1 source) Impacted cerumen of bilateral ears; Translations: [Impacted cerumen, bilateral] Onset: 8 10-15-2017 Episodic Phlebitis; thrombophlebitis and thromboembolism (8 sources) Phlebitis and thrombophlebitis of superficial vessels of left lower extremity; Translations: [Phlebitis and thrombophlebitis of superficial vessels of right lower extremity] Onset: 2 Episodic Syncope (1 source) Syncope; Translations: [Syncope and collapse] Onset: 1 05-06-2021 Episodic Varicose veins of lower extremity (4 sources) Varicose veins of bilateral lower extremities with pain; Translations: [VARICOSE VNS REYNA LOW EXTREM W/PAIN] Onset: 2 Episodic Results Test Name Value Interpretation Reference Range Facility 36on 12-25-2023 36 Patient needs upcomi CEA with Dr. Enciso and he is requesting clearance. Does patient need stress test prior or are you able to clear him? Please advise. Thank you. Normal [facility] Office Visiton 11-03-2023 Follow-up visit [id number] Todd Suarez 1935 [facility] Provider Department Center 11/03/2023 271-JESSY LAMAS MAG [facility] Family History Problem Relation Age of Onset No Known Problems Mother No Known Problems Father Family Status - Relation Status Age at Mother Father Level of Service:05399 [place] OFFICE/OUTPATIENT ESTABLISHED LOW MDM 20 MIN Normal [facility] Office Visiton 04-23-2023 Follow-up visit [id number] Todd Suarez 1935 [facility] Provider Department Center 04/23/2023 [id number] DOUGLAS CARD [facility] Family History Problem Relation Age of Onset No Known Problems Mother No Known Problems Father Family Status - Relation Status Age at Mother Father Level of Service:78471 [place] OFFICE/OUTPATIENT ESTABLISHED MOD MDM 30-39 MIN Reason for Visit and Comments: Follow-up [504745] - Pt is here for f/u labs, CXR, stress test, and echo Normal [facility] Office Visiton 03-10-2023 Follow-up visit [id number] Todd Suarez 1935 [facility] Provider Department Center 03/10/2023 271-JESSY LAMAS MAG [facility] Family History Problem Relation Age of Onset No Known Problems Mother No Known Problems Father Family Status - Relation Status Age at Mother Father Level of Service:39981 [place] OFFICE/OUTPATIENT ESTABLISHED HIGH MDM 40-54 MIN Normal [facility] Orders Onlyon 03-10-2023 Orders Only [id number] Todd Suarez 1935 [facility] Provider Department Center 03/10/2023 DEEPIKA GENTILE MAG [facility] Family History Problem Relation Age of Onset No Known Problems Mother No Known Problems Father Family Status - Relation Status Age at Mother Father Normal [facility] PTH INTACTon 02-12-2023 PTH, Intact 28 pg/mL Normal 15-65 [facility] Comment on above: Performed By: #### B MP, BNP #### [facility] [address] [place] [address] Dr. Mary Kay Vaca FERRITINon 02-11-2023 Ferritin [Mass/Vol] 685.0 ng/mL Critically high 26.0-388.0 [facility] Comment on above: Performed By: #### B MP, BNP #### [facility] [address] [place] [address] Dr. Mary Kay Vaca HEMOGRAM AND PLATELon 2022 Hematocrit (Bld) [Volume fraction] 37.8 % Critically low 42.0-54.0 [facility] Comment on above: Performed By: #### R ENDIMAS, LIPID #### [facility] [address] [place] [address] Dr. Mary Kay Vaca Hemoglobin (Bld) [Mass/Vol] 12.8 g/dL Critically low 14.0-18.0 [facility] Comment on above: Performed By: #### R ENDIMAS, LIPID #### [facility] [address] [place] [address] Dr. Mary Kay Vaca MCH (RBC) [Entitic mass] 32.5 pg Normal 25.9-34.[address] [facility] Comment on above: Performed By: #### R ENDIMAS, LIPID #### [facility] [address] [place] [address] Dr. Mary Kay Vaca MCHC (RBC) [Mass/Vol] 33.9 g/dL Normal 29.9-35.[address] [facility] Comment on above: Performed By: #### R ENAL, LIPID #### [facility] [address] [place] [address] Dr. Mary Kay Vaca MCV (RBC) [Entitic vol] 95.9 fL Critically high 80.0-94.[address] [facility] Comment on above: Performed By: #### R ENAL, LIPID #### [facility] [address] [place] [address] Dr. Mary Kay Vaca PLT 163 103/ul Normal 150-[address] [facility] Comment on above: Performed By: #### R ENAL, LIPID #### [facility] [address] [address] [address] Mary Kay Vaca RBC 3.94 106/ul Critically low 4.70-6.10 The [facility] Comment on above: Performed By: #### R ENAL, LIPID #### [facility] [address] [address] [address] Mary Kay Vaca WBC 6.3 103/ul Normal 4.0-11.[address] [facility] Comment on above: Performed By: #### R ENAL, LIPID #### [facility] [address] [address] [address] Mary Kay Vaca IRON AND TIBCon 02-11-2023 % SATURATION 40.8 % Normal [facility] Comment on above: Performed By: #### B MP, BNP #### [facility] [address] [place] [address] Dr. Mary Kay Vaca Iron [Mass/Vol] 127.0 ug/dL Normal 65.0-175.0 [facility] Comment on above: Performed By: #### B MP, BNP #### [facility] [address] [address] [address] Mary Kay Vaca TIBC DIRECT 311.0 ug/dL Normal 250.0-450.0 [facility] Comment on above: Performed By: #### B MP, BNP #### [facility] [address] [place] [address] Dr. Mary Kay Vaca MAGNESIUMon 02-11-2023 Magnesium [Mass/Vol] 1.7 mg/dL Critically low 1.8-2.[address] [facility] Comment on above: Performed By: #### R ENAL, LIPID #### [facility] [address] [address] [address] Mary Kay Vaca PHOSPHORUSon 02-11-2023 Phosphate [Mass/Vol] 3.1 mg/dL Normal 2.6-4.[address] [facility] Comment on above: Performed By: #### R ENDIMAS, LIPID #### [facility] [address] [place] [address] Dr. Mary Kay Vaca PROF 14(COMP METB)on 023 Albumin [Mass/Vol] 3.7 g/dL Normal 3.4-5.0 [facility] Comment on above: Performed By: #### R ENAL, LIPID #### [facility] [address] [address] [address] Mary Kay Vaca Albumin/Globulin [Mass ratio] 0.8 {ratio} Normal [facility] Comment on above: Performed By: #### R ENAL, LIPID #### [facility] [address] [address] [address] Mary Kay Vaca ALP [Catalytic activity/Vol] 178 U/L Critically high 46-116 [facility] Comment on above: Performed By: #### R ENDIMAS, LIPID #### [facility] [address] [address] [address] Mary Kay Vaca ALT [Catalytic activity/Vol] 72 U/L Critically high 16-63 [facility] Comment on above: Performed By: #### R ENDIMAS, LIPID #### [facility] [address] [address] [address] Mary Kay Vaca Anion gap [Moles/Vol] 16.6 mmol/L Normal [facility] Comment on above: Performed By: #### R ENDIMAS, LIPID #### [facility] [address] [address] [address] Mary Kay Vaca AST [Catalytic activity/Vol] 53 U/L Critically high 15-37 [facility] Comment on above: Performed By: #### R ENDIMAS, LIPID #### [facility] [address] [address] [address] Mary Kay Vaca Bilirubin [Mass/Vol] 0.5 mg/dL Normal 0.2-1.0 [facility] Comment on above: Performed By: #### R ENDIMAS, LIPID #### [facility] [address] [address] [address] Mary Kay Vaca Calcium [Mass/Vol] 9.4 mg/dL Normal 8.5-10.1 [facility] Comment on above: Performed By: #### R ENDIMAS, LIPID #### [facility] [address] [address] [address] Mary Kay Vaca Chloride [Moles/Vol] 102 mmol/L Normal 98-107 [facility] Comment on above: Performed By: #### R ENAL, LIPID #### [facility] [address] [place] [address] Dr. Mary Kay Vaca CO2 [Moles/Vol] 26.6 mmol/L Normal 21.0-32.0 [facility] Comment on above: Performed By: #### R ENAL, LIPID #### [facility] [address] [place] [address] Dr. Mary Kay Vaca Creatinine [Mass/Vol] 1.72 mg/dL Critically high 0.70-1.30 [facility] Comment on above: Performed By: #### R ENAL, LIPID #### [facility] [address] [place] [address] Dr. Mary Kay Vaca EGFR-AF CITIZ[place] 46 mL/min/1.73m2 Critically low >=60 [facility] Comment on above: Performed By: #### R ENAL, LIPID #### [facility] [address] [place] [address] Dr. Mary Kay Vaca EGFR-NON AF CITIZEN OF [place] 38 mL/min/1.73m2 Critically low >=60 [facility] Comment on above: Performed By: #### R ENAL, LIPID #### [facility] [address] [place] [address] Dr. Mary Kay Vaca Globulin (S) [Mass/Vol] 4.9 g/dL Normal [facility] Comment on above: Performed By: #### R ENAL, LIPID #### [facility] [address] [place] [address] Dr. Mary Kay Vaca Glucose [Mass/Vol] 205 mg/dL Critically high 74-106 [facility] Comment on above: Performed By: #### R ENAL, LIPID #### [facility] [address] [place] [address] Dr. Mary Kay Vaca Potassium [Moles/Vol] 4.2 mmol/L Normal 3.5-5.1 [facility] Comment on above: Performed By: #### R ENAL, LIPID #### [facility] [address] [address] [address] Mary Kay Vaca Protein [Mass/Vol] 8.6 g/dL Critically high 6.4-8.2 [facility] Comment on above: Performed By: #### R ENAL, LIPID #### [facility] [address] [place] [address] Dr. Mary Kay Vaca Sodium [Moles/Vol] 141 mmol/L Normal 136-145 [facility] Comment on above: Performed By: #### R ENAL, LIPID #### [facility] [address] [place] [address] Dr. Mary Kay Vaca Urea nitrogen [Mass/Vol] 36.0 mg/dL Critically high 7.0-18.0 [facility] Comment on above: Performed By: #### R ENAL, LIPID #### [facility] [address] [place] [address] Dr. Mary Kay Vaca Urea nitrogen/Creatinine [Mass ratio] 20.9 mg/mg Normal [facility] Comment on above: Performed By: #### R ENAL, LIPID #### [facility] [address] [place] [address] Dr. Mary Kay Vaca UA RANDOMon 02-11-2023 Bilirubin Ql (U) Negative Normal NEGATIVE [facility] Comment on above: Performed By: #### U A #### [facility] [address] [place] [address] Dr. Mary Kay Vaca Clarity (U) CLEAR Normal CLEAR [facility] Comment on above: Performed By: #### U A #### [facility] [address] [place] [address] Dr. Mary Kay Vaca Color (U) LT. YELLOW Normal YELLOW [facility] Comment on above: Performed By: #### U A #### [facility] [address] [place] [address] Dr. Mary Kay Vaca Glucose Ql (U) Negative Normal NEGATIVE [facility] Comment on above: Performed By: #### U A #### [facility] [address] [place] [address] Dr. Mary Kay Vaca Hemoglobin Ql (U) Negative Normal NEGATIVE [facility] Comment on above: Performed By: #### U A #### [facility] [address] [place] [address] Dr. Mary Kay Vaca Ketones Ql (U) Negative Normal NEGATIVE [facility] Comment on above: Performed By: #### U A #### [facility] [address] [place] [address] Dr. Mary Kay Vaca LEUKOCYTES Negative Normal NEGATIVE [facility] Comment on above: Performed By: #### U A #### [facility] [address] [place] [address] Dr. Mary Kay Vaca Nitrite Ql (U) Negative Normal NEGATIVE [facility] Comment on above: Performed By: #### U A #### [facility] [address] [place] [address] Dr. Mary Kay Vaca pH (U) 6.0 [pH] Normal 5-9 [facility] Comment on above: Performed By: #### U A #### [facility] [address] [place] [address] Dr. Mary Kay Vaca SPEC GRAVITY 1.010 Normal 1.005-<=1.025 [facility] Comment on above: Performed By: #### U A #### [facility] [address] [place] [address] Dr. Mary Kay Vaca UA PROTEIN Negative Normal NEGATIVE/ TRACE [facility] Comment on above: Performed By: #### U A #### [facility] [address] [place] [address] Dr. Mary Kay Vaca Urobilinogen Qn (U) 0.2 {Ric'U}/dL Normal 0.2 - 1. 0 [facility] Comment on above: Performed By: #### U A #### [facility] [address] [place] [address] Dr. Mary Kay Vaca URIC ACID SERUMon 02-11-2023 Urate [Mass/Vol] 5.7 mg/dL Normal 3.5-7.2 [facility] Comment on above: Performed By: #### R ENAL, LIPID #### [facility] [address] [place] [address] Dr. Mary Kay Vaca URINE T PROTEIN CREAT RATIOo n 02-11-2023 UR TOTAL PROTEIN <6.0 Normal <=12.0 [facility] Comment on above: Performed By: #### B MP, BNP #### [facility] [address] [address] [address] Mary Kay Vaca URINE CREAT <13.00 Critically low 20.00-300.00 [facility] Comment on above: Performed By: #### B MP, BNP #### [facility] [address] [place] [address] Dr. Mary Kay Vaca VITAMIN D 25 OHon 02-11-2023 VIT D 25-OH 35.9 ng/mL Normal [facility] Comment on above: Performed By: #### B BRADLY, BNP #### [facility] [address] [place] [address] Dr. Mary Kay Vaca VIT D RANGES SEE BELOW Normal [facility] Comment on above: Result Comment: <20 ng/mL Vit D deficient 20 - <30 ng/mL Vit D insufficient 30 - 100 ng/mL Vit D sufficient >100 ng/mL Potential Toxicity Performed By: #### B BRADLY, BNP #### [facility] [address] [place] [address] Dr. Mary Kay Vaca C-PEPTIDE, SERUMon 3 C-Peptide, Serum 9.0 ng/mL Critically high 1.1-4.4 [facility] Comment on above: Result Comment: C-Pe ptide reference interval is for fasting patients. Performed By: #### B BRADLY, BNP #### [facility] [address] [place] [address] Dr. Mary Kay Vaca LIPID PROFILEon 12-23-2022 CHOL-HDL RATIO NORM SEE BELOW Normal [facility] Comment on above: Result Comment: 3.3 - 4.4 LOW RISK 4.4 - 7.1 AVERAGE RISK 7.1 - 11.0 MODERATE RISK >11.0 HIGH RISK Performed By: #### R ENAL, LIPID #### [facility] [address] [place] [address] Dr. Mary Kay Vaca Cholesterol [Mass/Vol] 174 mg/dL Normal <=200 [facility] Comment on above: Performed By: #### R ENAL, LIPID #### [facility] [address] [address] [address] Mary Kay Vaca Cholesterol in HDL [Mass/Vol] 61 mg/dL Critically high 40-60 [facility] Comment on above: Performed By: #### R ENAL, LIPID #### [facility] [address] [address] [address] Mary Kay Vaca Cholesterol in LDL [Mass/Vol] 87.0 mg/dL Normal [facility] Comment on above: Performed By: #### R ENAL, LIPID #### [facility] [address] [address] [address] Mary Kay Vaca Cholesterol.total/Ch olesterol in HDL [Mass ratio] 2.9 {ratio} Normal [facility] Comment on above: Performed By: #### R ENAL, LIPID #### [facility] [address] [address] [address] Mary Kay Vaca HDL NORMAL > or = 60 mg/dl - LO W CARDIOVASCULAR RISK <40 mg/dl - HIGH CARDIOVASCULAR RISK Normal [facility] Comment on above: Performed By: #### R ENAL, LIPID #### [facility] [address] [address] [address] Mary Kay Vaca LDL CALC NORMAL SEE BELOW Normal [facility] Comment on above: Result Comment: <100 mg/dl OPTIMAL 100 - 129 mg/dl NEAR OR ABOVE OPTIMAL 130 - 159 mg/dl BORDERLINE HIGH 160 - 189 mg/dl HIGH >190 mg/dl VERY HIGH Performed By: #### R ENAL, LIPID #### [facility] [address] [address] [address] Mary Kay Vaca Triglyceride [Mass/Vol] 130 mg/dL Normal <=[address] [facility] Comment on above: Performed By: #### R ENAL, LIPID #### [facility] [address] [address] [address] Mary Kay Vaca VLDL CALC 26.0 mg/dL Normal [facility] Comment on above: Performed By: #### R ENAL, LIPID #### [facility] [address] [place] [address] Dr. Mary Kay Vaca MICROALB CREAT RATIO RANDOMo n 12-23-2022 mALB 2.2 mg/L Normal <=30.0 [facility] Comment on above: Performed By: #### B MP, BNP #### [facility] [address] [place] [address] Dr. Mary Kay Vaca MALB CR RATIO RANGE SEE BELOW Normal [facility] Comment on above: Result Comment: NO M ICROALBUMINURIA 0-29 MG/G CLINICAL MICROALBUMINURIA 30-300 MG/G MACROALBUMINURIA >300 MG/G Performed By: #### B MP, BNP #### [facility] [address] [place] [address] Dr. Mary Kay Vaca URINE CREAT <13.00 Critically low 20.00-300.00 [facility] Comment on above: Performed By: #### B MP, BNP #### [facility] [address] [place] [address] Dr. Mary Kay Vaca RENAL FUNCTION PANELon 12-23 Albumin [Mass/Vol] 3.7 g/dL Normal 3.4-5.0 [facility] Comment on above: Performed By: #### R RERE, LIPID #### [facility] [address] [place] [address] Dr. Mary Kay Vaca Calcium [Mass/Vol] 9.4 mg/dL Normal 8.5-10.1 [facility] Comment on above: Performed By: #### R RERE, LIPID #### [facility] [address] [place] [address] Dr. Mary Kay Vaca Chloride [Moles/Vol] 107 mmol/L Normal 98-[address] [facility] Comment on above: Performed By: #### R ENDIMAS, LIPID #### [facility] [address] [place] [address] Dr. Mary Kay Vaca CO2 [Moles/Vol] 27.0 mmol/L Normal 21.0-32.0 [facility] Comment on above: Performed By: #### R ENDIMAS, LIPID #### [facility] [address] [address] [address] Mary Kay Vaca Creatinine [Mass/Vol] 1.46 mg/dL Critically high 0.70-1.30 [facility] Comment on above: Performed By: #### R ENAL, LIPID #### [facility] [address] [address] [address] Mary Kay Vaca EGFR-AF [place] 55 mL/min/1.73m2 Critically low >=60 [facility] Comment on above: Performed By: #### R ENAL, LIPID #### [facility] [address] [address] [address] MaryK ay Vaca EGFR-NON AF [place]IZ[place] 46 mL/min/1.73m2 Critically low >=60 [facility] Comment on above: Performed By: #### R ENAL, LIPID #### [facility] [address] [address] [address] Mary Kay Vaca Glucose [Mass/Vol] 163 mg/dL Critically high 74-106 [facility] Comment on above: Performed By: #### R ENAL, LIPID #### [facility] [address] [address] [address] Mary Kay Vaca Phosphate [Mass/Vol] 2.6 mg/dL Normal 2.6-4.7 [facility] Comment on above: Performed By: #### R ENAL, LIPID #### [facility] [address] [address] [address] Mary Kay Vaca Potassium [Moles/Vol] 4.0 mmol/L Normal 3.5-5.1 [facility] Comment on above: Performed By: #### R ENAL, LIPID #### [facility] [address] [address] [address] Mary Kay Vaca Sodium [Moles/Vol] 145 mmol/L Normal 136-145 [facility] Comment on above: Performed By: #### R ENAL, LIPID #### [facility] [address] [address] [address] Mary Kay Vaca Urea nitrogen [Mass/Vol] 32.0 mg/dL Critically high 7.0-18.0 [facility] Comment on above: Performed By: #### R ENAL, LIPID #### [facility] [address] [place] [address] Dr. Mary Kay Vaca MAGNESIUMon 11-11-2022 Magnesium [Mass/Vol] 1.4 mg/dL Critically low 1.8-2.4 [facility] Comment on above: Performed By: #### R ENDIMAS, LIPID #### [facility] [address] [place] [address] Dr. Mary Kay Vaca PROF CHEM 8 (BAS METB)on Anion gap [Moles/Vol] 13.7 mmol/L Normal [facility] Comment on above: Performed By: #### R RERE, LIPID #### [facility] [address] [place] [address] Dr. Mary Kay Vaca Calcium [Mass/Vol] 9.8 mg/dL Normal 8.5-10.1 [facility] Comment on above: Performed By: #### R ENDIMAS, LIPID #### [facility] [address] [place] [address] Dr. Mary Kya Vaca Chloride [Moles/Vol] 105 mmol/L Normal 98-107 [facility] Comment on above: Performed By: #### R RERE, LIPID #### [facility] [address] [place] [address] Dr. Mary Kay Vaca CO2 [Moles/Vol] 27.2 mmol/L Normal 21.0-32.0 [facility] Comment on above: Performed By: #### R ENDIMAS, LIPID #### [facility] [address] [place] [address] Dr. Mary Kay Vaca Creatinine [Mass/Vol] 1.45 mg/dL Critically high 0.70-1.30 [facility] Comment on above: Performed By: #### R ENDIMAS, LIPID #### [facility] [address] [place] [address] Dr. Mary Kay Vaca EGFR-AF [place] 56 mL/min/1.73m2 Critically low >=60 [facility] Comment on above: Performed By: #### R ENDIMAS, LIPID #### [facility] [address] [place] [address] Dr. Mary Kay Vaca EGFR-NON AF [place] 46 mL/min/1.73m2 Critically low >=60 [facility] Comment on above: Performed By: #### R ENDIMAS, LIPID #### [facility] [address] [address] [address] Mary Kay Vaca Glucose [Mass/Vol] 234 mg/dL Critically high 74-106 [facility] Comment on above: Performed By: #### R ENDIMAS, LIPID #### [facility] [address] [address] [address] Mary Kay Vaca Potassium [Moles/Vol] 3.9 mmol/L Normal 3.5-5.1 [facility] Comment on above: Performed By: #### R RERE, LIPID #### [facility] [address] [address] [address] Mary Kay Vaca Sodium [Moles/Vol] 142 mmol/L Normal 136-145 [facility] Comment on above: Performed By: #### R RERE, LIPID #### [facility] [address] [address] [address] Mary Kay Vaca Urea nitrogen [Mass/Vol] 38.0 mg/dL Critically high 7.0-18.0 [facility] Comment on above: Performed By: #### R ENDIMAS, LIPID #### [facility] [address] [address] [address] Mary Kay Vaca Urea nitrogen/Creatinine [Mass ratio] 26.2 mg/mg Normal [facility] Comment on above: Performed By: #### R ENDIMAS, LIPID #### [facility] [address] [address] [address] Mary Kay Vaca PTH INTACTon 09-18-2022 PTH, Intact 39 pg/mL Normal 15-65 [facility] Comment on above: Performed By: #### R ENDIMAS, LIPID #### [facility] [address] [address] [address] Mary Kay Vaca FERRITINon 09-17-2022 Ferritin [Mass/Vol] 703.0 ng/mL Critically high 26.0-388.0 [facility] Comment on above: Performed By: #### B MP, BNP #### [facility] [address] [place] [address] Dr. Mary Kay Vaca HEMOGRAM AND PLATELon 2022 Hematocrit (Bld) [Volume fraction] 37.2 % Critically low 42.0-54.0 [facility] Comment on above: Performed By: #### R ENAL, LIPID #### [facility] [address] [place] [address] Dr. Mary Kay Vaca Hemoglobin (Bld) [Mass/Vol] 12.6 g/dL Critically low 14.0-18.0 [facility] Comment on above: Performed By: #### R ENDIMAS, LIPID #### [facility] [address] [place] [address] Dr. Mary Kay Vaca MCH (RBC) [Entitic mass] 32.7 pg Normal 25.9-34.0 [facility] Comment on above: Performed By: #### R ENDIMAS, LIPID #### [facility] [address] [place] [address] Dr. Mary Kay Vaca MCHC (RBC) [Mass/Vol] 33.9 g/dL Normal 29.9-35.[address] [facility] Comment on above: Performed By: #### R ENDIMAS, LIPID #### [facility] [address] [place] [address] Dr. Mary Kay Vaca MCV (RBC) [Entitic vol] 96.6 fL Critically high 80.0-94.[address] [facility] Comment on above: Performed By: #### R ENDIMAS, LIPID #### [facility] [address] [place] [address] Dr. Mary Kay Vaca PLT 172 103/ul Normal 150-[address] [facility] Comment on above: Performed By: #### R ENDIMAS, LIPID #### [facility] [address] [place] [address] Dr. Mary Kay Vaca RBC 3.85 106/ul Critically low 4.70-6.10 [facility] Comment on above: Performed By: #### R ENDIMSA, LIPID #### [facility] [address] [place] [address] Dr. Mary Kay Vaca WBC 6.8 103/ul Normal 4.0-11.0 [facility] Comment on above: Performed By: #### R ENAL, LIPID #### [facility] [address] [address] [address] Mary Kay Vaca IRON AND TIBCon 09-17-2022 % SATURATION 38.9 % Normal [facility] Comment on above: Performed By: #### B MP, BNP #### [facility] [address] [address] [address] Mary Kay Vaca Iron [Mass/Vol] 121.0 ug/dL Normal 65.0-175.0 [facility] Comment on above: Performed By: #### B MP, BNP #### [facility] [address] [place] [address] Dr. Mary Kay Vaca TIBC DIRECT 311.0 ug/dL Normal 250.0-450.0 [facility] Comment on above: Performed By: #### B MP, BNP #### [facility] [address] [address] [address] Mary Kay Vaca MAGNESIUMon 09-17-2022 Magnesium [Mass/Vol] 1.6 mg/dL Critically low 1.8-2.4 [facility] Comment on above: Performed By: #### C MP, MG, URIC #### [facility] [address] [address] [address] Mary Kay Vaca PROF 14(COMP METB)on 023 Albumin [Mass/Vol] 4.0 g/dL Normal 3.4-5.0 [facility] Comment on above: Performed By: #### C MP, MG, URIC #### [facility] [address] [address] [address] Mary Kay Vaca Albumin/Globulin [Mass ratio] 0.9 {ratio} Normal [facility] Comment on above: Performed By: #### C MP, MG, URIC #### [facility] [address] [address] [address] Mary Kay Vaca ALP [Catalytic activity/Vol] 164 U/L Critically high 46-116 [facility] Comment on above: Performed By: #### C MP, MG, URIC #### [facility] [address] [address] [address] Mary Kay Vaca ALT [Catalytic activity/Vol] 82 U/L Critically high 16-63 [facility] Comment on above: Performed By: #### C MP, MG, URIC #### [facility] [address] [address] [address] Mary Kay Vaca Anion gap [Moles/Vol] 12.7 mmol/L Normal [facility] Comment on above: Performed By: #### C MP, MG, URIC #### [facility] [address] [address] [address] Mary Kay Vaca AST [Catalytic activity/Vol] 61 U/L Critically high 15-37 [facility] Comment on above: Performed By: #### C MP, MG, URIC #### [facility] [address] [address] [address] Mary Kay Vaca Bilirubin [Mass/Vol] 0.5 mg/dL Normal 0.2-1.0 [facility] Comment on above: Performed By: #### C MP, MG, URIC #### [facility] [address] [address] [address] Mary Kay Vaca Calcium [Mass/Vol] 9.7 mg/dL Normal 8.5-10.1 [facility] Comment on above: Performed By: #### C MP, MG, URIC #### [facility] [address] [address] [address] Mary Kay Vaca Chloride [Moles/Vol] 100 mmol/L Normal 98-107 [facility] Comment on above: Performed By: #### C MP, MG, URIC #### [facility] [address] [address] [address] Mary Kay Vaca CO2 [Moles/Vol] 30.4 mmol/L Normal 21.0-32.0 [facility] Comment on above: Performed By: #### C MP, MG, URIC #### [facility] [address] [address] [address] Mary Kay Vaca Creatinine [Mass/Vol] 1.30 mg/dL Normal 0.70-1.30 [facility] Comment on above: Performed By: #### C MP, MG, URIC #### [facility] [address] [place] [address] Dr. Mary Kay Vaca EGFR-AF CITIZEN [place] >60 Normal >=60 [facility] Comment on above: Performed By: #### C MP, MG, URIC #### [facility] [address] [place] [address] Dr. Mary Kay Vaca EGFR-NON AF CITIZEN OF [place] 52 mL/min/1.73m2 Critically low >=60 [facility] Comment on above: Performed By: #### C MP, MG, URIC #### [facility] [address] [place] [address] Dr. Mary Kay Vaca Globulin (S) [Mass/Vol] 4.7 g/dL Normal [facility] Comment on above: Performed By: #### C MP, MG, URIC #### [facility] [address] [place] [address] Dr. Mary Kay Vaca Glucose [Mass/Vol] 193 mg/dL Critically high 74-106 [facility] Comment on above: Performed By: #### C MP, MG, URIC #### [facility] [address] [place] [address] Dr. Mary Kay Vaca Potassium [Moles/Vol] 4.1 mmol/L Normal 3.5-5.1 [facility] Comment on above: Performed By: #### C MP, MG, URIC #### [facility] [address] [place] [address] Dr. Mary Kay Vaca Protein [Mass/Vol] 8.7 g/dL Critically high 6.4-8.2 [facility] Comment on above: Performed By: #### C MP, MG, URIC #### [facility] [address] [place] [address] Dr. Mary Kay Vaca Sodium [Moles/Vol] 139 mmol/L Normal 136-145 [facility] Comment on above: Performed By: #### C MP, MG, URIC #### [facility] [address] [place] [address] Dr. Mary Kay Vaca Urea nitrogen [Mass/Vol] 33.0 mg/dL Critically high 7.0-18.0 [facility] Comment on above: Performed By: #### C MP, MG, URIC #### [facility] [address] [place] [address] Dr. Mary Kay Vaca Urea nitrogen/Creatinine [Mass ratio] 25.4 mg/mg Normal [facility] Comment on above: Performed By: #### C MP, MG, URIC #### [facility] [address] [place] [address] Dr. Mary Kay Vaca UA RANDOMon 09-17-2022 Bilirubin Ql (U) Negative Normal NEGATIVE [facility] Comment on above: Performed By: #### B MP, BNP #### [facility] [address] [place] [address] Dr. Mary Kay Vaca Clarity (U) CLEAR Normal CLEAR [facility] Comment on above: Performed By: #### B MP, BNP #### [facility] [address] [place] [address] Dr. Mary Kay Vaca Color (U) LT. YELLOW Normal YELLOW [facility] Comment on above: Performed By: #### B MP, BNP #### [facility] [address] [place] [address] Dr. Mary Kay Vaca Glucose Ql (U) 100 mg/dl Abnormal NEGATIVE [facility] Comment on above: Performed By: #### B MP, BNP #### [facility] [address] [place] [address] Dr. Mary Kay Vaca Hemoglobin Ql (U) TRACE-LYSED Abnormal NEGATIVE [facility] Comment on above: Performed By: #### B MP, BNP #### [facility] [address] [place] [address] Dr. Mary Kay Vaca Ketones Ql (U) Negative Normal NEGATIVE [facility] Comment on above: Performed By: #### B MP, BNP #### [facility] [address] [place] [address] Dr. Mary Kay Vaca LEUKOCYTES Negative Normal NEGATIVE [facility] Comment on above: Performed By: #### B MP, BNP #### [facility] [address] [address] [address] Mary Kay Vaca Nitrite Ql (U) Negative Normal NEGATIVE [facility] Comment on above: Performed By: #### B MP, BNP #### [facility] [address] [place] [address] Dr. Mary Kay Vaca pH (U) 7.0 [pH] Normal 5-[address] [facility] Comment on above: Performed By: #### B MP, BNP #### [facility] [address] [place] [address] Dr. Mary Kay Vaca SPEC GRAVITY 1.010 Normal 1.005-<=1.025 [facility] Comment on above: Performed By: #### B MP, BNP #### [facility] [address] [place] [address] Dr. Mary Kay Vaca UA PROTEIN Negative Normal NEGATIVE/ TRACE [facility] Comment on above: Performed By: #### B MP, BNP #### [facility] [address] [place] [address] Dr. Mary Kay Vaca Urobilinogen Qn (U) 0.2 {Ric'U}/dL Normal 0.2 - 1. [address] [facility] Comment on above: Performed By: #### B MP, BNP #### [facility] [address] [place] [address] Dr. Mary Kay Vaca URIC ACID SERUMon 09-17-2022 Urate [Mass/Vol] 4.8 mg/dL Normal 3.5-7.2 [facility] Comment on above: Performed By: #### C MP, MG, URIC #### [facility] [address] [place] [address] Dr. Mary Kay Vaca URINE T PROTEIN CREAT RATIOo n 09-17-2022 Protein (U) [Mass/Vol] 19.9 mg/dL Critically high <=12.0 [facility] Comment on above: Performed By: #### R ENAL, LIPID #### [facility] [address] [place] [address] Dr. Mary Kay Vaca UR PROT CREAT RAT 1.31 Normal [facility] Comment on above: Performed By: #### R ENAL, LIPID #### [facility] [address] [address] [address] Mary Kay Vaca URINE CREAT 15.14 mg/dL Critically low 20.00-300.00 [facility] Comment on above: Performed By: #### R ENAL, LIPID #### [facility] [address] [address] [address] Mary Kay Vaca VIT B12 AND FOLATEon 023 Cobalamin (Vitamin B12) [Mass/Vol] 1181.0 pg/mL Critically high 193.0-986.0 [facility] Comment on above: Performed By: #### B MP, BNP #### [facility] [address] [address] [address] Mary Kay Vaca FOLATE 9.90 ng/mL Normal 8.60-58.90 [facility] Comment on above: Performed By: #### B MP, BNP #### [facility] [address] [address] [address] Mary Kay Vaca VITAMIN D 25 OHon 09-17-2022 VIT D 25-OH 41.7 ng/mL Normal [facility] Comment on above: Performed By: #### C MP, MG, URIC #### [facility] [address] [address] [address] Mary Kay Vaca VIT D RANGES SEE BELOW Normal [facility] Comment on above: Result Comment: <20 ng/mL Vit D deficient 20 - <30 ng/mL Vit D insufficient 30 - 100 ng/mL Vit D sufficient >100 ng/mL Potential Toxicity Performed By: #### C MP, MG, URIC #### [facility] [address] [place] [address] Dr. Mary Kay Vaca VC CONSULT FOLLOWUPon 2021 VC CONSULT FOLLOWUP Patient: TODD SUAREZEunice Exam Date: 07/30/2022 : 1935 Gender:M Ordering : DR ALVA MAI M.D. Admission #: [id number] Family : Order #: [id number] CLICK HERE TO VIEW EXAM RADIOLOGY REPORT [...] Mai MD on 07/30/2022 at 14:41 Normal [facility] EXT VENOUS LT LIMITEDon 1 09-29-2021 VC EXT VENOUS LT LIMITED Patient: SUAREZ TODD MendozaEunice Exam Date: 07/30/2022 : 1935 Gender:M Ordering : DR ALVA MAI M.D. Admission #: [id number] Family : Order #: [id number] CLICK HERE TO VIEW EXAM RADIOLOGY REPORT [...] 0.5s reflux. *Exam performed in accordance with [facility] practice guidelines- Peripheral venous ultrasound, December 09, 2009. 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 No significant residual incompetent varicose veins are observed Dictated by: Alva Mai MD on 07/30/2022 at 14:25 Approved by: Alva Mai MD on 07/30/2022 at 14:26 Normal [facility] VC INJ FOAM SCLERO W US MLTI on 07-23-2022 VC INJ FOAM SCLERO W US MLTI Patient: TODD SUAREZ Exam Date: 07/23/2022 : 1935 Gender:M Ordering : DR ALVA MAI M.D. Admission #: [id number] Family : Order #: [id number] CLICK HERE TO VIEW EXAM RADIOLOGY REPORT [...] content not included)... Normal [facility] VC CONSULT FOLLOWUPon 2021 VC CONSULT FOLLOWUP Patient: TODD SUAREZ Exam Date: 07/09/2022 : 1935 Gender:M Ordering : DR ALVA MAI M.D. Admission #: [id number] Family : Order #: [id number] CLICK HERE TO VIEW EXAM RADIOLOGY REPORT [...] Mai MD on 07/09/2022 at 14:02 Normal [facility] VC VENOUS REFLUX LT LMTon VC VENOUS REFLUX LT LMT Patient: TODD SUAREZ Exam Date: 07/09/2022 : 1935 Gender:M Ordering : DR ALVA MAI M.D. Admission #: [id number] Family : Order #: [id number] CLICK HERE TO VIEW EXAM RADIOLOGY REPORT [...] visualized in SSV. Compressibility: Normal Flow: Normal [employer]: Dist/med calf 2.4mm with 0s reflux. Mid/med [...] Mai MD on 07/09/2022 at 13:38 Normal [facility] BNPon 04-08-2022 Natriuretic peptide B (Bld) [Mass/Vol] 1185.0 pg/mL Normal <=1,800.0 [facility] Comment on above: Performed By: #### B MP, BNP #### [facility] [address] [place] [address] Dr. Mary Kay Vaca PROF CHEM 8 (BAS METB)on Anion gap [Moles/Vol] 10.9 mmol/L Normal [facility] Comment on above: Performed By: #### B MP, BNP #### [facility] [address] [place] [address] Dr. Mary Kay Vaca Calcium [Mass/Vol] 8.8 mg/dL Normal 8.5-10.1 [facility] Comment on above: Performed By: #### B MP, BNP #### [facility] [address] [place] [address] Dr. Mary Kay Vaca Chloride [Moles/Vol] 107 mmol/L Normal 98-107 [facility] Comment on above: Performed By: #### B MP, BNP #### [facility] [address] [place] [address] Dr. Mary Kay Vaca CO2 [Moles/Vol] 29.0 mmol/L Normal 21.0-32.0 [facility] Comment on above: Performed By: #### B MP, BNP #### [facility] [address] [place] [address] Dr. Mary Kay Vaca Creatinine [Mass/Vol] 1.31 mg/dL Critically high 0.70-1.30 [facility] Comment on above: Performed By: #### B MP, BNP #### [facility] [address] [place] [address] Dr. Mary Kay Vaca EGFR-AF CITIZ[place] >60 Normal >=60 [facility] Comment on above: Performed By: #### B MP, BNP #### [facility] [address] [address] [address] Mary Kay Vaca EGFR-NON AF [place]IZ[place] 52 mL/min/1.73m2 Critically low >=60 [facility] Comment on above: Performed By: #### B MP, BNP #### [facility] [address] [address] [address] Mary Kay Vaca Glucose [Mass/Vol] 121 mg/dL Critically high 74-106 [facility] Comment on above: Performed By: #### B MP, BNP #### [facility] [address] [address] [address] Mary Kay Vaca Potassium [Moles/Vol] 3.9 mmol/L Normal 3.5-5.1 [facility] Comment on above: Performed By: #### B MP, BNP #### [facility] [address] [address] [address] Mary Kay Vaca Sodium [Moles/Vol] 143 mmol/L Normal 136-145 [facility] Comment on above: Performed By: #### B MP, BNP #### [facility] [address] [address] [address] Mary Kay Vaca Urea nitrogen [Mass/Vol] 29.0 mg/dL Critically high 7.0-18.0 [facility] Comment on above: Performed By: #### B MP, BNP #### [facility] [address] [address] [address] Mary Kay Vaca Urea nitrogen/Creatinine [Mass ratio] 22.1 mg/mg Normal [facility] Comment on above: Performed By: #### B MP, BNP #### [facility] [address] [address] [address] Mary Kay Vaca GLYCOHEMOGLOBIN A1Con 2021 ADA RECOMMENDATION SEE BELOW Normal [facility] Comment on above: Result Comment: ADA RECOMMENDED LIMIT 4.0 - 6.0 ADA THERAPEUTIC TARGET < 7.0 ACTION SUGGESTED > 7.0 Performed By: #### B MP, BNP #### [facility] [address] [address] [address] Mary Kay Vaca Glucose [Mass/Vol] 120 mg/dL Normal [facility] Comment on above: Performed By: #### B MP, BNP #### [facility] [address] [place] [address] Dr. Mary Kay Vaca HbA1c (Bld) [Mass fraction] 5.8 % Normal 4.5-6.2 [facility] Comment on above: Performed By: #### B MP, BNP #### [facility] [address] [place] [address] Dr. Mary Kay Vaca PTH INTACTon 03-27-2022 PTH, Intact 43 pg/mL Normal 15-65 [facility] Comment on above: Performed By: #### B MP, BNP #### [facility] [address] [place] [address] Dr. Mary Kay Vaca FERRITINon 03-25-2022 Ferritin [Mass/Vol] 30.0 ng/mL Normal 26.0-388.0 [facility] Comment on above: Performed By: #### F ERR, VITAD, FETIBC #### [facility] [address] [place] [address] Dr. Mary Kay Vaca HEMOGRAM AND PLATELon 2021 Hematocrit (Bld) [Volume fraction] 32.9 % Critically low 42.0-54.0 [facility] Comment on above: Performed By: #### B MP, BNP #### [facility] [address] [place] [address] Dr. Mary Kay Vaca Hemoglobin (Bld) [Mass/Vol] 9.9 g/dL Critically low 14.0-18.0 [facility] Comment on above: Performed By: #### B MP, BNP #### [facility] [address] [place] [address] Dr. Mary Kay Vaca MCH (RBC) [Entitic mass] 28.7 pg Normal 25.9-34.0 [facility] Comment on above: Performed By: #### B MP, BNP #### [facility] [address] [place] [address] Dr. Mary Kay Vaca MCHC (RBC) [Mass/Vol] 30.1 g/dL Normal 29.9-35.2 [facility] Comment on above: Performed By: #### B MP, BNP #### [facility] [address] [address] [address] Mary Kay Vaca MCV (RBC) [Entitic vol] 95.4 fL Critically high 80.0-94.0 [facility] Comment on above: Performed By: #### B MP, BNP #### [facility] [address] [address] [address] Mary Kay Vaca PLT 247 103/ul Normal 150-450 [facility] Comment on above: Performed By: #### B MP, BNP #### [facility] [address] [address] [address] Mary Kay Vaca RBC 3.45 106/ul Critically low 4.70-6.10 [facility] Comment on above: Performed By: #### B MP, BNP #### [facility] [address] [address] [address] Mary Kay Vaca WBC 6.9 103/ul Normal 4.0-11.[address] [facility] Comment on above: Performed By: #### B MP, BNP #### [facility] [address] [address] [address] Mary Kay Vaca IRON AND TIBCon 03-25-2022 % SATURATION 12.4 % Normal [facility] Comment on above: Performed By: #### R ENAL, LIPID #### [facility] [address] [address] [address] Mary Kay Vaca Iron [Mass/Vol] 47.0 ug/dL Critically low 65.0-175.0 [facility] Comment on above: Performed By: #### R ENAL, LIPID #### [facility] [address] [address] [address] Mary Kay Vaca TIBC DIRECT 380.0 ug/dL Normal 250.0-450.0 [facility] Comment on above: Performed By: #### R ENAL, LIPID #### [facility] [address] [address] [address] Mary Kay Vaca PROF 14(COMP METB)on 022 Albumin [Mass/Vol] 3.3 g/dL Critically low 3.4-5.0 [facility] Comment on above: Performed By: #### R ENAL, LIPID #### [facility] [address] [address] [address] Mary Kay Vaca Albumin/Globulin [Mass ratio] 0.8 {ratio} Normal [facility] Comment on above: Performed By: #### R ENAL, LIPID #### [facility] [address] [address] [address] Mary Kay Vaca ALP [Catalytic activity/Vol] 203 U/L Critically high 46-116 [facility] Comment on above: Performed By: #### R ENAL, LIPID #### [facility] [address] [place] [address] Dr. Mary Kay Vaca ALT [Catalytic activity/Vol] 41 U/L Normal 16-63 [facility] Comment on above: Performed By: #### R ENAL, LIPID #### [facility] [address] [place] [address] Dr. Mary Kay Vaca Anion gap [Moles/Vol] 13.4 mmol/L Normal [facility] Comment on above: Performed By: #### R ENAL, LIPID #### [facility] [address] [place] [address] Dr. Mary Kay Vaca AST [Catalytic activity/Vol] 41 U/L Critically high 15-37 [facility] Comment on above: Performed By: #### R ENAL, LIPID #### [facility] [address] [address] [address] Mary Kay Vaca Bilirubin [Mass/Vol] 0.4 mg/dL Normal 0.2-1.0 [facility] Comment on above: Performed By: #### R ENAL, LIPID #### [facility] [address] [address] [address] Mary Kay Vaac Calcium [Mass/Vol] 9.0 mg/dL Normal 8.5-10.1 [facility] Comment on above: Performed By: #### R ENAL, LIPID #### [facility] [address] [place] [address] Dr. Mary Kay Vaca Chloride [Moles/Vol] 105 mmol/L Normal 98-107 [facility] Comment on above: Performed By: #### R ENAL, LIPID #### [facility] [address] [place] [address] Dr. Mary Kay Vaca CO2 [Moles/Vol] 24.9 mmol/L Normal 21.0-32.0 [facility] Comment on above: Performed By: #### R ENAL, LIPID #### [facility] [address] [address] [address] Mary Kay Vaca Creatinine [Mass/Vol] 0.97 mg/dL Normal 0.70-1.[address] [facility] Comment on above: Performed By: #### R ENAL, LIPID #### [facility] [address] [place] [address] Dr. Mary Kay Vaca EGFR-AF CITIZ[place] >60 Normal >=60 [facility] Comment on above: Performed By: #### R ENAL, LIPID #### [facility] [address] [place] [address] Dr. Mary Kay Vaca EGFR-NON AF [place]IZ[place] >60 Normal >=60 [facility] Comment on above: Performed By: #### R ENAL, LIPID #### [facility] [address] [place] [address] Dr. Mary Kay Vaca Globulin (S) [Mass/Vol] 4.1 g/dL Normal [facility] Comment on above: Performed By: #### R ENAL, LIPID #### [facility] [address] [place] [address] Dr. Mary Kay Vaca Glucose [Mass/Vol] 113 mg/dL Critically high 74-106 [facility] Comment on above: Performed By: #### R ENAL, LIPID #### [facility] [address] [place] [address] Dr. Mary Kay Vaca Potassium [Moles/Vol] 4.3 mmol/L Normal 3.5-5.1 [facility] Comment on above: Performed By: #### R ENAL, LIPID #### [facility] [address] [place] [address] Dr. Mary Kay Vaca Protein [Mass/Vol] 7.4 g/dL Normal 6.4-8.2 [facility] Comment on above: Performed By: #### R ENAL, LIPID #### [facility] [address] [place] [address] Dr. Mary Kay Vaca Sodium [Moles/Vol] 139 mmol/L Normal 136-145 [facility] Comment on above: Performed By: #### R ENAL, LIPID #### [facility] [address] [place] [address] Dr. Mary Kay Vaca Urea nitrogen [Mass/Vol] 21.0 mg/dL Critically high 7.0-18.0 [facility] Comment on above: Performed By: #### R ENAL, LIPID #### [facility] [address] [place] [address] Dr. Mary Kay Vaca Urea nitrogen/Creatinine [Mass ratio] 21.6 mg/mg Normal [facility] Comment on above: Performed By: #### R ENAL, LIPID #### [facility] [address] [place] [address] Dr. Mary Kay Vaca UA RANDOMon 03-25-2022 Bilirubin Ql (U) Negative Normal NEGATIVE [facility] Comment on above: Performed By: #### B MP, BNP #### [facility] [address] [place] [address] Dr. Mary Kay Vaca Clarity (U) CLEAR Normal CLEAR [facility] Comment on above: Performed By: #### B MP, BNP #### [facility] [address] [place] [address] Dr. Mary Kay Vaca Color (U) LT. YELLOW Normal YELLOW [facility] Comment on above: Performed By: #### B MP, BNP #### [facility] [address] [place] [address] Dr. Mary Kay Vaca Glucose Ql (U) Negative Normal NEGATIVE [facility] Comment on above: Performed By: #### B MP, BNP #### [facility] [address] [place] [address] Dr. Mary Kay Vaca Hemoglobin Ql (U) Negative Normal NEGATIVE [facility] Comment on above: Performed By: #### B MP, BNP #### [facility] [address] [place] [address] Dr. Mary Kay Vaca Ketones Ql (U) Negative Normal NEGATIVE [facility] Comment on above: Performed By: #### B MP, BNP #### [facility] [address] [place] [address] Dr. Mary Kay Vaca LEUKOCYTES Negative Normal NEGATIVE [facility] Comment on above: Performed By: #### B MP, BNP #### [facility] [address] [place] [address] Dr. Mary Kay Vaca Nitrite Ql (U) Negative Normal NEGATIVE [facility] Comment on above: Performed By: #### B MP, BNP #### [facility] [address] [place] [address] Dr. Mary Kay Vaca pH (U) 6.5 [pH] Normal 5-9 [facility] Comment on above: Performed By: #### B MP, BNP #### [facility] [address] [place] [address] Dr. Mary Kay Vaca SPEC GRAVITY 1.010 Normal 1.005-<=1.025 [facility] Comment on above: Performed By: #### B MP, BNP #### [facility] [address] [place] [address] Dr. Mary Kay Vaca UA PROTEIN Negative Normal NEGATIVE/ TRACE [facility] Comment on above: Performed By: #### B MP, BNP #### [facility] [address] [place] [address] Dr. Mary Kay Vaca Urobilinogen Qn (U) 0.2 {Ric'U}/dL Normal 0.2 - 1. 0 [facility] Comment on above: Performed By: #### B MP, BNP #### [facility] [address] [place] [address] Dr. Mary Kay Vaca URIC ACID SERUMon 03-25-2022 Urate [Mass/Vol] 3.5 mg/dL Normal 3.5-7.2 [facility] Comment on above: Performed By: #### R ENAL, LIPID #### [facility] [address] [place] [address] Dr. Mary Kay Vaca URINE T PROTEIN CREAT RATIOo n 03-25-2022 Protein (U) [Mass/Vol] 21.4 mg/dL Critically high <=12.0 [facility] Comment on above: Performed By: #### B MP, BNP #### [facility] [address] [address] [address] Mary Kay Vaca UR PROT CREAT RAT 2.12 Normal [facility] Comment on above: Performed By: #### B MP, BNP #### [facility] [address] [address] [address] Mary Kay Vaca URINE CREAT 10.09 mg/dL Critically low 20.00-300.00 [facility] Comment on above: Performed By: #### B MP, BNP #### [facility] [address] [address] [address] Mary Kay Vaca VITAMIN D 25 OHon 03-25-2022 VIT D 25-OH 37.6 ng/mL Normal [facility] Comment on above: Performed By: #### F ERR, VITAD, FETIBC #### [facility] [address] [address] [address] Mary Kay Vaca VIT D RANGES SEE BELOW Normal [facility] Comment on above: Result Comment: <20 ng/mL Vit D deficient 20 - <30 ng/mL Vit D insufficient 30 - 100 ng/mL Vit D sufficient >100 ng/mL Potential Toxicity Performed By: #### F ERR, VITAD, FETIBC #### [facility] [address] [place] [address] Dr. Mary Kay Vaca VC CONSULT FOLLOWUPon 2021 VC CONSULT FOLLOWUP Patient: TODD SUAREZ Exam Date: 03/12/2022 : 1935 Gender:M Ordering : DR ALVA MAI M.D. Admission #: [id number] Family : Order #: [id number] CLICK HERE TO VIEW EXAM RADIOLOGY REPORT [...] Mai MD on 03/12/2022 at 15:34 Normal [facility] VC EXT VENOUS RT LIMITEDon 0 03-12-2022 VC EXT VENOUS RT LIMITED Patient: TODD SUAREZ Exam Date: 03/12/2022 : 1935 Gender:M Ordering : DR ALVA MAI M.D. Admission #: [id number] Family : Order #: [id number] CLICK HERE TO VIEW EXAM RADIOLOGY REPORT [...] Alva Mai MD on 03/12/2022 at 15:19 Normal [facility] ECHOCARDIO M/2D COMPLETEon 0 03-08-2022 ECHOCARDIO M/2D COMPLETE Patient: TODD SUAREZ Exam Date: 03/08/2022 : 1935 Gender:M Ordering : JERICA MUÑIZ Admission #: [id number] Family : Order #: [id number] CLICK HERE TO VIEW EXAM ECHOCARDIOGRAM REPORT [...] Area(A4C): 29.80 cm2 Left Atrium Systolic Volume(A2C): 90584 mm3 Left Atrium Systolic Volume(A4C): 626695 mm3 Mitral Valve MV E to A Ratio: 1.70 Deceleration Red Willow: 5630 mm/s2 Mitral Valve A-Wave Peak Velocity: 64.20 cm/s Mitral Valve E-Wave Peak Velocity: 108.00 cm/s Right Ventricle RV Internal Diastolic Dimension: 3.61 cm Aorta AO Root Diam: 3.00 cm Aortic Valve Peak Velocity (Antegrade Flow): 187.00 cm/s, 205.00 cm/s AoV Area (Peak Shaheen): 1.14 cm2 AoV Area (VTI): 1.22 cm2 Deceleration Red Willow: 2340 mm/s2 Pressure Half-Time: 518 ms Peak [...] Benny Franklin M.D. on 03/11/2022 at 12:38 [facility] VC INJ FOAM SCLERO W US MLTI on 03-07-2022 VC INJ FOAM SCLERO W US MLTI Patient: TODD SUAREZ Exam Date: 03/07/2022 : 1935 Gender:M Ordering : DR ALVA MAI M.D. Admission #: [id number] Family : Order #: [id number] CLICK HERE TO VIEW EXAM RADIOLOGY REPORT [...] on 03/07/2022 at 15:53 Approved by: Kendall Cbarera M.D. on 03/07/2022 at 15:56 [facility] VC CONSULT FOLLOWUPon 2021 VC CONSULT FOLLOWUP Patient: TODD SUAREZ Exam Date: 03/01/2022 : 1935 Gender:M Ordering : DR ALVA MAI M.D. Admission #: [id number] Family : Order #: [id number] CLICK HERE TO VIEW EXAM RADIOLOGY REPORT [...] Kendall Cabrera M.D. on 03/01/2022 at 14:47 [facility] VC EXT VENOUS RT LIMITEDon 0 03-01-2022 VC EXT VENOUS RT LIMITED Patient: TODD SUAREZ Exam Date: 03/01/2022 : 1935 Gender:M Ordering : DR ALVA MAI M.D. Admission #: [id number] Family : Order #: [id number] CLICK HERE TO VIEW EXAM RADIOLOGY REPORT [...] Cabrera M.D. on 03/01/2022 at 14:41 Normal [facility] Cardiovascular Lab Reporton 07-29-2020 Cardiovascular Lab Report [facility] Patient Name: Todd Suarez [facility] D MR #: [id number] Department of Physician: John Peralta M.D. Division of Service Date: 07/28/2020 Cardiology Birthdate: 1935 Adult Cardiovascular Room #: [address] [address] Cardiovascular Laboratory Report CLINICAL PRESENTATION: The patient [...] ultrasound guidance and micropuncture access technique, a 6-Bulgarian sheath was placed in the right internal [...] Barnett M.D. Date Trans: 07/29/2020 05:43 A/alphonso [id number] cc: Jose Brewer M.D. [address] [facility]. [facility] [address] Jerica Muñiz, DIE HARDENER [address] [facility] [address] [place] [id number] Normal The [facility] *SARS-CoV-2 COVID-19on 07-27 [id number] Not Detected Normal Not Detected The [facility] Comment on above: Order Comment: The A ptima SARS-CoV-2 assay is a nucleic acid amplification test intended for the qualitative detection of RNA from SARS-CoV-2 isolated and purified from nasopharyngeal (PRICING COORDINATOR),oropharyngeal (OP), nasal swab, sputum, and bronchoalveolar lavage (BAL) specimens from patients with signs and symptoms of infection who are suspected of COVID-19. Results are for the identification of SARS-CoV-2 RNA. The SARS-CoV-2 RNA is generally detectable during the acute phase of infection. The Aptima SARS-CoV-2 Assay on the [employer] system is intended for use by laboratory personnel specifically instructed and trained in the operation of the [employer] system. The Aptima SARS-CoV-2 assay is [...] information. Performed By: #### 3 1792 #### [address] Ambulatory Clinical Summaryo 05-23-2020 Ambulatory Clinical Summary {[id number] [facility] Vital Signs Date Time Vital Sign Value Performing Clinician Facility 10-30-2023 14:15-0500 Body height 167.6 cm Jose Brewer MD Work Phone: [facility] 10-30-2023 14:15-0500 Body mass index (BMI) [Ratio] 30.99 kg/m2 Jose Brewer MD Work Phone: [facility] 10-30-2023 14:15-0500 Body temperature 96.3 [degF] Jose Brewer MD Work Phone: [facility] 10-30-2023 14:15-0500 Body weight 87.09 kg Jose Brewer MD Work Phone: [facility] 10-30-2023 14:15-0500 Diastolic blood pressure 60 mm[Hg] Jose Brewer MD Work Phone: [facility] 10-30-2023 14:15-0500 Heart rate 90 /min Jose Brewer MD Work Phone: [facility] 02-15-2024 14:15-0500 SaO2% (BldA) [Mass fraction] 96 % Jose Brewer MD Work Phone: [facility] 10-30-2023 14:15-0500 Systolic blood pressure 106 mm[Hg] Jose Brewer MD Work Phone: [facility] 07-10-2023 14:00-0400 Body height 167.64 cm Aziz Bakselenes Other [facility] Other 07-10-2023 14:00-0400 Body mass index (BMI) [Ratio] 30.18 kg/m2 Aziz Bakhous Other [facility] Other 07-10-2023 14:00-0400 Body temperature 96.8 [degF] Azshan [employer] Other [facility] Other 07-10-2023 14:00-0400 Body weight 84.82 kg Aziz Bakhous Other [facility] Other 07-10-2023 14:00-0400 Diastolic blood pressure 69 mm[Hg] Aziz Bakhous Other [facility] Other 07-10-2023 14:00-0400 Respiratory rate 18 /min Aziz Bakhous Other [facility] Other 07-10-2023 14:00-0400 SaO2% (BldA) [Mass fraction] 93 % Aziz Bakhous Other [facility] Other 07-10-2023 14:00-0400 Systolic blood pressure 110 mm[Hg] Aziz Bakhous Other [facility] Other 03-07-2023 11:40-0400 Body height 167.64 cm Azshan Bakseleens Other [facility] Other 03-07-2023 11:40-0400 Body mass index (BMI) [Ratio] 31.44 kg/m2 Aziz Bakhous Other [facility] Other 03-07-2023 11:40-0400 Body temperature 97 [degF] Azshan Gonsaless Other [facility] Other 03-07-2023 11:40-0400 Body weight 88.36 kg Azshan Bakhous Other [facility] Other 03-07-2023 11:40-0400 Diastolic blood pressure 84 mm[Hg] Aziz Bakhous Other [facility] Other 03-07-2023 11:40-0400 Respiratory rate 18 /min Kaur Bakselenes Other [facility] Other 03-07-2023 11:40-0400 SaO2% (BldA) [Mass fraction] 96 % Azshan Bakhous Other [facility] Other 03-07-2023 11:40-0400 Systolic blood pressure 154 mm[Hg] Aziz Bakhous Other [facility] Other 09-25-2022 14:40-0500 Body height 167.64 cm Aziz Bakhous Other [facility] Other 09-25-2022 14:40-0500 Body mass index (BMI) [Ratio] 29.05 kg/m2 Aziz Bakhous Other [facility] Other 09-25-2022 14:40-0500 Body temperature 96.7 [degF] Kaur Robins Other [facility] [employer] Other 09-25-2022 14:40-0500 Body weight 81.65 kg Kaur Edgarmulu Other [facility] [employer] Other 09-25-2022 14:40-0500 Diastolic blood pressure 74 mm[Hg] Kaur Robins Other [facility] [employer] Other 09-25-2022 14:40-0500 Respiratory rate 18 /min Kaur Robins Other [facility] [employer] Other 09-25-2022 14:40-0500 SaO2% (BldA) [Mass fraction] 96 % Kaur Robins Other [facility] [employer] Other 09-25-2022 14:40-0500 Systolic blood pressure 108 mm[Hg] Kaur Robins Other [facility] [employer] Other 04-24-2022 14:32-0400 Body temperature 97.7 [degF] MD Kaur Robins Work Phone: [facility] 04-24-2022 14:32-0400 Diastolic blood pressure 61 mm[Hg] MD Kaur Robins Work Phone: [facility] 04-24-2022 14:32-0400 Heart rate 66 /min MD Kaur Robins Work Phone: [facility] 04-24-2022 14:32-0400 Systolic blood pressure 137 mm[Hg] MD Kaur Robins Work Phone: [facility] 04-24-2022 13:20-0400 Respiratory rate 16 /min MD Kaur Robins Work Phone: [facility] 04-24-2022 13:20-0400 SaO2% (BldA) [Mass fraction] 97 % MD Kaur Robins Work Phone: [facility] 04-02-2022 12:40-0400 Body height 167.64 cm Kaur Edgarmulu Other [place] [employer] Other 04-02-2022 12:40-0400 Body mass index (BMI) [Ratio] 28.08 kg/m2 Reganshan Edgarmulu Other [facility] Other 04-02-2022 12:40-0400 Body temperature 96.6 [degF] Kaur Edgarmulu Other [facility] Other 04-02-2022 12:40-0400 Body weight 78.93 kg Reagnshan Ildafamilia Other [facility] Other 04-02-2022 12:40-0400 Diastolic blood pressure 77 mm[Hg] Reganshan Ildafamilia Other [facility] Other 04-02-2022 12:40-0400 Respiratory rate 18 /min Reganshan Ildafamilia Other [facility] Other 04-02-2022 12:40-0400 SaO2% (BldA) [Mass fraction] 96 % Reganshan Gaye Other [facility] Other 04-02-2022 12:40-0400 Systolic blood pressure 146 mm[Hg] Reganshan Ildas Other [facility] Other 01-22-2022 12:20-0400 Body height 167.64 cm Kaur Robins Other [facility] Other 01-22-2022 12:20-0400 Body mass index (BMI) [Ratio] 28.08 kg/m2 Kaur Gonsaless Other [facility] Other 01-22-2022 12:20-0400 Body temperature 96.1 [degF] Kaur Robins Other [facility] Other 01-22-2022 12:20-0400 Body weight 78.93 kg Kaur Gonsaless Other [facility] Other 01-22-2022 12:20-0400 Diastolic blood pressure 60 mm[Hg] Kaur Gonsaless Other [facility] Other 01-22-2022 12:20-0400 Respiratory rate 20 /min Kaur Robins Other [facility] Other 01-22-2022 12:20-0400 SaO2% (BldA) [Mass fraction] 97 % Kaur Gonsaless Other [facility] Other 01-22-2022 12:20-0400 Systolic blood pressure 104 mm[Hg] Kaur Gonsaless Other [facility] Other Encounters Encounter Date Encounter Type Care Provider Facility Start: 01-08-2024 End: 01-08-2024 ambulatory [facility] Start: 12-25-2023 End: 12-25-2023 ambulatory [facility] Start: 12-18-2023 Chart abstracting Brisa dawn MD Work Phone: [facility] Start: 11-03-2023 End: 11-03-2023 ambulatory [facility] Start: 10-30-2023 End: 10-30-2023 ambulatory JOSE BREWER Not Available Start: 10-30-2023 End: 10-30-2023 Office outpatient visit 25 minutes Jose Brewer MD Work Phone: [facility] Comment on above: 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, 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 ([facility]) (Primary Dx); Chronic heart failure with preserved ejection fraction (HFpEF) ([facility]); Benign essential hypertension ([facility]); Primary osteoarthritis of shoulders, bilateral; Gastroesophageal reflux disease without esophagitis; Skin candidiasis; PAD (peripheral artery disease) ([facility]) Start: 10-30-2023 [facility] Jose Brewer MD Work Phone: [facility] Start: 10-30-2023 [employer] Jose Brewer MD Work Phone: [facility] Start: 08-04-2023 End: 08-04-2023 ambulatory Aziz Bakhous Other [facility] Other Start: 08-04-2023 Telephone encounter Aziz Bakhous [facility] Start: 07-10-2023 End: 07-10-2023 ambulatory Aziz Bakhous Other [facility] Other Start: 07-10-2023 Office outpatient vi sit 25 minutes Aziz Bakhous [facility] Start: 04-23-2023 End: [facility]-23-20[facility] Start: 03-10-2023 End: 03-10-2023 ambulatory [facility] Start: 03-07-2023 End: 03-07-2023 ambulatory Aziz Bakhous Other [facility] Other Start: 03-07-2023 Office outpatient vi sit 25 minutes Azshan Robins [facility] Start: 02-11-2023 End: 02-12-2023 ambulatory KAUR ROBINS Facility:[facility] Start: 12-23-2022 End: 12-24-[address] JOSE BREWER Facility:[facility] Start: 11-11-2022 End: 11-12-[address] JOSE BREWER Facility:[facility] Start: 09-25-2022 End: 09-25-2022 ambulatory Kaur Robins Other [facility] Other Start: 09-25-2022 Office outpatient vi sit 25 minutes Aziz Gaye [facility] Start: 09-17-2022 End: 09-18-2022 ambulatory KAUR ROBINS Facility:[facility] Start: 07-30-2022 End: 07-31-[address] JOSE BREWER Facility:[facility] Start: 07-23-2022 End: 07-24-[address] JOSE BREWER Facility:[facility] Start: 07-09-2022 End: 07-10-[address] ALVA MAI Facility:[facility] Start: 05-16-2022 ambulatory JERICA MUÑIZ Facility :[facility] Start: 04-24-2022 End: 04-24-2022 Discharged Recurring MD Kaur Robins Work Phone: [facility] Start: 04-08-2022 End: 04-09-[address] JESSY LAMAS Facility:[facility] Start: 04-04-2022 End: 04-05-[address] JOSE BREWER Facility:[facility] Start: 04-02-2022 End: 04-02-2022 ambulatory Kaur Robins Other [facility] Other Start: 04-02-2022 Office outpatient vi sit 25 minutes Azshan Bakselenes [facility] Start: 03-25-2022 End: 03-26-[address] DOCTOR ROSE Facility:[facility] Start: 03-12-2022 End: 03-13-[address] ALVA MAI Facility:[facility] Start: 03-08-2022 End: 03-09-2022 ambulatory JERICA MUÑIZ Facility:[facility] Start: 03-07-2022 End: 03-08-[address] ALVA MAI Facility:[facility] Start: 03-01-2022 End: 03-02-[address] ALVA MAI Facility:[facility] Start: 02-25-2022 ambulatory KAREEN CRABTREE Faci lity:[facility] Start: 01-22-2022 End: 01-22-2022 ambulatory Aziz Bakhous Other [facility] Other Start: 01-22-2022 Office outpatient vi sit 25 minutes Aziz Bakhous [facility] Start: 01-18-2022 End: 01-18-2022 ambulatory Aziz Bakhous Other [facility] Other Start: 01-18-2022 Telephone encounter Aziz Bakhous [facility] Start: 01-14-2022 End: 01-14-2022 ambulatory Aziz Bakhous Other [facility] Other Start: 01-14-2022 Telephone encounter Aziz Bakhous [facility] Start: 10-23-2021 End: 10-23-2021 ambulatory Aziz Bakhous Other [facility] Other Start: 10-23-2021 Telephone encounter Aziz Bakhous [facility] Start: 07-28-2020 End: 07-29-2020 Patient encounter procedure REFERRED SELF Facility:[facility] Plan of Treatment Date Care Activity Detail Author Start: 11-20-2028 DTaP,Tdap and Td Vaccines (2 - Td or Tdap) DTaP,Tdap and Td Vaccines (2 - Td or Tdap) [facility] Start: 07-24-2024 Adult BMI Screening Adult BMI Screen ing [facility] Start: 07-24-2024 Tobacco Screening Tobacco Screening [facility] Start: 05-16-2024 Influenza vaccination Influenza Vacc ine [facility] Start: 04-29-2024 End: 04-29-2024 Patient encounter procedure 04/29/2024 1:00 PM EDT Office Visit [facility] [address] [place] [address] Jose Brewer MD [address] [place] [phone] [facility] Start: 12-25-2023 End: 12-25-2023 Patient encounter procedure 12/25/2023 9:00 AM EDT [facility] [address] [place] [address] Brisa Enciso MD [address], [address] [address] [facility] Start: 10-30-2023 End: 10-30-2023 Patient encounter procedure 10/30/2023 2:15 PM EST Office Visit [facility] [address] [place] [address] Jose Brewer MD [address] [place] [address] Arrived [facility] Comment on above: Arrived Start: 08-05-2021 Hemoglobin A1c measurement Diabetes: Hemoglobin A1C [facility] Start: 2001 Fall Risk Screening Fall Risk Screen ing [facility] Start: 1954 Adult BMI Follow Up Plan Adult BMI Follow Up Plan [facility] Start: 1948 Depression Screening Depression Scre ening [facility] Start: 1946 Glaucoma screening Diabetes: R etinopathy Screening [facility] Start: 1936 Medicare Annual Wellness (AWV) Medicare Annual Wellness (AWV) [facility] Start: 1936 Medicare Annual Wellness Visit Medicare Annual Wellness Visit [facility] Immunizations Immunization Date Immunization Notes Care Provider Fa cility 06-13-2023 influenza virus vaccine, unspecified formulation Brisa Enciso MD Work Phone: [facility] 05-06-2021 pneumococcal conjuga te vaccine, 13 valent Brisa Enciso MD Work Phone: [facility] [employer] 11-20-2018 tetanus toxoid, redu robert diphtheria toxoid, and acellular pertussis vaccine, adsorbed Brisa Enciso MD Work Phone: [facility] Payers Date Payer Category Payer Medicare [id number] 1958 Medicare [id number] 2. [id number] 1959 Self-pay [id number] 1959 Unknown [id number] 1935 Unknown [id number] 2.16.8 [id number] 1936 Unknown [id number] 2.16.84 0.1.204108.3.579.2.593 1936 Unknown [id number] 2.16.84 0.1.239516.3.579.2.593 1936 Unknown [id number] 2.16.84 0.1.013789.3.579.2.593 1936 Unknown [id number] 2.16.84 0.1.623290.3.579.2.593 1936 Unknown [id number] 2.16.84 0.1.436495.3.579.2.593 1936 Unknown [id number] 2.16.84 0.1.004261.3.579.2.593 1936 Unknown [id number] 2.16.84 0.1.089572.3.579.2.593 1936 Unknown [id number] 2.16.84 0.1.372868.3.579.2.593 1936 Unknown [id number] 2.16.84 0.1.090305.3.579.2.593 1936 Unknown [id number] 2.16.84 0.1.762215.3.579.2.593 1936 Unknown [id number] 2.16.84 0.1.357032.3.579.2.593 1936 Unknown [id number] 2.16.84 0.1.155608.3.579.2.593 1936 Unknown [id number] 2.16.84 0.1.509175.3.579.2.593 1936 Unknown [id number] 2.16.84 0.1.057795.3.579.2.593 1936 Unknown [id number] 2.16.84 0.1.662211.3.579.2.593 1936 Unknown [id number] 2.16.84 0.1.540435.3.579.2.593 1936 Unknown [id number] 2.16.84 0.1.174987.3.579.2.1259 1936 Unknown [id number] 2.16.8 40.1.243203.3.579.2.1286 1936 Unknown [id number] 2.16.8 40.1.527476.3.579.2.1286 Social History Date Type Detail Facility Unknown if ever smoked [facility] Other Start: 10-26-2020 End: 10-08-2023 Sex Assigned At [facility] Other Start: 1935 Sex Assigned At Male [facility] Start: 07-24-2023 End: 10-08-2023 Tobacco smoking status RIIS Ex-smoker [facility] End: 09-15-2011 History of tobacco use Current smoker [facility] End: 09-15-2011 History of tobacco use Cigarette Smoker [facility] History of tobacco use Pipe Smoker [facility] History of tobacco use Cigar Smoker [facility] Start: 07-24-2023 End: 10-08-2023 Tobacco use and exposure Smokeless tobacco non-user [facility] Start: 10-08-2023 End: 10-30-2023 Alcohol intake Current drinker of alcohol (finding) [facility] Start: 10-26-2020 End: 10-08-2023 History of Social function [facility] Start: [...] drinks on 1 occasion? 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 Evaluation of progress towards goal: Safe dc return home with family support and resume with [facility]. Clinical Notes 01-14-2022 to 11-03-2023 Jose Brewer MD - 10/30/2023 3:17 PM Carolann Brewer MD - 10/30/2023 3:16 PM Carolann Brewer MD - 10/30/2023 3:16 PM Carolann Brewer MD - 10/30/2023 3:16 PM EST Note Date & Type Note Facility 11-03-2023 Note [facility] Cardiology Clinic Note Chief Complaint: Patient here for 6 mo follow up CAD, hypertension, chronic systolic heart failure, and aortic valve stenosis. Had carotid US in May and labs in Jun 2023. He was started on Jardiance recently by his utility manager. Patient denies chest pain, palpitations, and lightheadedness/syncope. Says his BERG is better with inhaler. HPI: Todd Suarez is a 87 y.o. male with a history of coronary artery disease, s/p PCI of the LAD in 2018, moderate aortic stenosis and chronic kidney disease stage III; he underwent a right heart catheterization 07/2020 Update 11/03/2023: Doing well. His shortness of breath is improved since he was started on a new inhaler by his press cutter. Denies recent weight gain. No orthopnea, no [...] Dyslipidemia Peripheral veno (more content not included)... [facility] 10-30-2023 History of Present illness Narrative Associated Problem(s): PAD (peripheral artery disease) ([facility]) Symptoms stable and follow up with vascular surgery. Associated Problem(s): Skin candidiasis Developed rash and use cream PRN. Associated Problem(s): Type 2 diabetes mellitus with microalbuminuria, without long-term current use of insulin ([facility]) Reports BS elevated and follow up with endocrinology. Stick to ADA diet and limit carbs. Associated Problem(s): Primary osteoarthritis of shoulders, bilateral Mild pain but tolerable and use OTC PRN. Associated Problem(s): Gastroesophageal reflux disease without esophagitis Symptoms controlled with protonix and continue. Associated Problem(s): Chronic heart failure with preserved ejection fraction (HFpEF) ([facility]) Edema stable and continue medication. Wear compression [...] Items Addressed This Visit Benign essential hypertension (CMS/HCC) BP controlled and monitor PRN. Chronic heart failure with preserved ejection fraction (HFpEF) ([facility]) Edema stable and continue medication. Wear compression stockings daily. Elevated legs PRN. Primary osteoarthritis of shoulders, bilateral Mild pain but tolerable and use OTC PRN. Type 2 diabetes mellitus with microalbuminuria, without long-term current use of insulin ([facility]) - Primary Reports BS elevated and follow up with endocrinology. Stick to ADA diet and limit carbs. Gastroesophageal reflux disease without esophagitis Symptoms controlled with protonix and continue. Skin candidiasis Developed rash and use cream PRN. Relevant Medications clotrimazole (Lotrimin) 1 % cream documented in this encounter [facility] 08-04-2023 Evaluation note Encounter Date Diagnosis Assessment Notes Jul, Benign prostatic hyperplasia with lower urinary tract symptoms (ICD-10 - N40.1) Thumb Other 10-26-2023 Evaluation note* Encounter Date Diagnosis [...] an d reflux uropathy (ICD-10 - N13.8) Thumb Other 08-09-2023 NoteCardiology Clinic Note Subjective Todd Suarez is a 87 y.o. 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 States his collar stay fuser tender heard a rattling in his back and told him to follow up with his copy room technician. Complains of shortness of breathe with exertion, [...] left ventricular systolic fun (more content not included)...[facility] Chief Complaint: Follow up HPI: Todd Suarez is a 87 y.o. male Follow up from nephrology apt on 03/07/23. States his collar stay fuser tender heard a rattling in his back and told him to follow up with his copy room technician. Complains of shortness of breathe with exertion, [...] several months. He was seen in his collar stay fuser tender office; was felt to be volume overloaded. [...] following testing Jessy Lamas MD, MPH, FACC, [facility] Interventional C (more content not included)...[facility]06-23-2023 Evaluation note* Encounter Date Diagnosis Assessment [...] an d reflux uropathy (ICD-10 - N13.8) Thumb Other 01-11-2023 Evaluation note* Encounter Date Diagnosis Assessment Notes [...] IV Iron Sep, Hypomagnesemia (ICD-10 - E83.42) Thumb Other 07-19-2022 Evaluation note* Encounter Date Diagnosis [...] will schedule II more doses of Injectafer Thumb Other 05-10-2022 Evaluation note* Encounter Date Diagnosis [...] daily January, Iron deficiency (ICD-10 - E61.1) Thumb Other 05-02-2022 Evaluation note* Encounter Date Diagnosis Assessment Notes Treatment Notes Treatment Clinical Notes January, Stage 3b chronic kidney disease (CKD) (ICD-10 - N18.32) January, Localized edema (ICD-10 - R60.0) January, Primary hypertension (ICD-10 - I10) Thumb Other Evaluation noteNo InformationNort Blaze Other Evaluation noteNo assessment information available [facility] Work Phone: Evaluation note* Diagnosis Type 2 diabetes mellitus with microalbuminuria, without long-term current use of insulin ([facility])- Primary Chronic heart failure with preserved ejection fraction (HFpEF) ([facility]) Benign essential hypertension ([facility]) Essential hypertension, benign Primary osteoarthritis of shoulders, bilateral Gastroesophageal reflux disease without esophagitis Esophageal reflux Skin candidiasis Candidiasis of skin and nails PAD (peripheral artery disease) ([facility]) Unspecified peripheral vascular disease documented in this encounter [facility] HealthcareHistory general Narrative - Reported* Type Description [...] C ATHETERIZATION 01/18/2019 Hospitalization History SEE ABOVE Thumb Other History general Narrative - Reported* Type [...] CATARACT REMOVED 02/2023 Hospitalization History SEE ABOVE Thumb Other InstructionsNot on filedocumented in this encounter [facility] Summary Purpose Family History No Family History Records FoundNo Family History Records FoundNo Family History Records FoundNo Family History Records FoundNo Family History Records FoundNo Family History Records Found Advance Directives No Advanced Directives Records Found Advance Directive Response Recorded Date/ Time Advance Directives No April 17, 2 022 11:18am Latest Code Status on File Code Status Date Activated Date Inactivated Comments Full Code 05/05/2021 6:35 PM 05/08/2021 6:04 PM Chief Complaint and Reason for Visit Chief Complaint D64.9 N18.32 Additional Source Comments (unrecognized sect ion and content) No Status Records FoundNo Status Records FoundNo Status Records FoundNo Status Records FoundNo Status Records FoundNo Status Records Found INFORMATION SOURCE (unrecogn ized section and content) DATE CREATED AUTHOR 05/22/2020 [facility] DATE CREATED AUTHOR AUTHOR'S ORGANIZ ATION 09/07/2020 [facility] DATE CREATED AUTHOR AUTHOR'S ORGANIZ ATION 02/21/2023 [facility] DATE CREATED AUTHOR AUTHOR'S ORGANIZ ATION 11/01/2023 [facility] EPIC DATE CREATED AUTHOR AUTHOR'S ORGANIZ ATION 12/26/2023 [facility] DATE CREATED AUTHOR AUTHOR'S ORGANIZ ATION 01/10/2024 [facility] REASON FOR VISIT (unrecogniz ed section and [...] Kaur Robins MD Primary Care Provider Active [employer] Relationship Specialty Start Date End Date Jose Brewer MD [address] [place] [id number] PCP - General Family Medicine 10/06/23 [employer] Relationship Specialty Start Date End Date Jose Brewer MD [address] [place] [id number] PCP - General Family Medicine 10/06/23 [employer] Relationship Specialty Start Date End Date Jose Brewer MD [address] [place] [address] PCP - General 10/08/17 Goals (unrecognized section and content) Goals may [...] BE BASED ON THE PRIMARY CLINICAL RECORDS. [employer] provides no warranty or guarantee of the accuracy or completeness of information in this document.
== END 2024-01-15 10:09 | disposition home or self-care (01) ==
LOC: CARD 10:08
PROVIDERS: PCP Family Medicine; Visit Provider Student in an Organized Health Care Education/Training Program
DX: I70.223 Atherosclerosis of native arteries of extremities with rest pain, bilateral legs (principal)
CPT/HCPCS: 93923

== ENCOUNTER 2024-04-26 10:56 | Outpatient (OUT) | payer MEDICARE, SELFPAY ==
--- OUTSIDE RECORDS SUMMARY | 2024-04-26 11:17 | XMS_ITS | CCD ---
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 Role Phone SELF, REFERRED Referring Unavailable ELENA BARNETT Admitting Unavailable ELENA BARNETT Attending Unavailable JOSE BREWER Primary Care Unavailable Kaur Robins Unavailable MD Kaur Robins Primary Care Provider [phone] MD Kaur Robins Attending Provider KAREEN CRABTREE Attending Unavailable KAREEN CRABTREE Admitting Unavailable NADEREKiki, DR JOSE Dhaliwal Primary Care Unavailable WEST, DR ALVA Johnston Consulting Unavailable WEST, DR ALVA Johnston Attending Unavailable WEST, DR ALVA Johnston Admitting Unavailable NADERER, DR JOSE Dhaliwal Primary Care Unavailable WEST, DR ALVA Johnston Consulting Unavailable WEST, DR ALVA Johnston Attending Unavailable WEST, DR ALVA Johnston Admitting Unavailable NADERER, DR JOSE Dhaliwal Primary Care Unavailable MIGNON, DR HOLLIS Swanson Consulting Unavailable WEST, DR ALVA Johnston [...] Care Unavailable MISC, DR REYNAGA Admitting Unavailable KAUR ROBINS Consulting [...] Admitting Unavailable BAKHOUS, AZIZ Consulting Unavailable BAKHOUS, REGANIZ Attending Unavailable NADERER, DR JOSE Dhaliwal Primary [...] Unavailable EARL, JERICA Attending Unavailable WEST, DR ALAV Johnston Consulting Unavailable WEST, DR ALVA Johnston Attending Unavailable WEST, DR ALVA Johnston Admitting Unavailable NADERER, DR JOSE Dhaliwal Primary Care Unavailable ZIEBER, DR HOLLIS Swanson Consulting Unavailable Naddonnar Jose EATON Primary Care Provider [phone] Jose Brewer MD Primary Care Provider [phone] SHIVA CHEN Attending Unavailable ELTAHAWY, JESSY Attending Unavailable ELTAHAWY, JESSY Attending Unavailable JOSE BREWER Referring Unavailable ARTEREJOSE Swanson Primary Care Unavailable KOJO, MOHAMED F Admitting Unavailable KOJO, MOHAMED F Attending Unavailable KOJO, MOHAMED F Referring Unavailable ARTERERJOSE Primary Care Unavailable NADERER, JOSE Primary Care Unavailable KOJO, MOHAMED F Admitting Unavailable KOJO, MOHAMED F Attending Unavailable ARTEREJOSE Swanson Primary Care Unavailable DAISY CHÁVEZ Referring Unavailable NADERER, JOSE Primary Care Unavailable ARTEREJOSE Swanson Referring Unavailable RATEREKiki, JOSE Primary Care Unavailable KOJO, MOHAMED F Attending Unavailable KOJO, MOHAMED F Referring Unavailable ARTEREKiki, JOSE Primary Care Unavailable ARTERER, JOSE Primary Care Unavailable NISHANT ARAYA Attending Unavailable NISHANT ARAYA Attending Unavailable NISHANT ARAYA Referring Unavailable ARTEREJOSE Swanson Primary Care Unavailable KOJO, MOHAMED F Attending Unavailable KOJO, THOMASAMED F Referring Unavailable NADERER, JOSE Primary Care Unavailable NADERER, JOSE Primary Care Unavailable ZULAY GARCIA Attending Unavailable ZULAY GARCIA Attending Unavailable ZULAY GARCIA Referring Unavailable NADERER, JOSE Primary Care Unavailable KOJO, THOMASAMED F Attending Unavailable NADERER, JOSE Referring Unavailable NADERER, JOSE Primary Care Unavailable KOJO, THOMASAMED F Attending Unavailable NADERER, JOSE Referring Unavailable NADERER, JOSE Primary Care Unavailable KOJO, THOMASAMED F Attending Unavailable NADERER, JOSE Referring Unavailable NADERER, JOSE Primary Care Unavailable KOJO, MOHAMED F Attending Unavailable NADERER, JOSE Referring Unavailable NADERER, JOSE Primary Care Unavailable NADERER, JOSE Attending Unavailable SHAIKH CRUMP Attending Unavailable Allergies Allergy Classification Reported Allergen(s) Allergy Type Date of Onset Reaction(s) Facility (1 source) Penicillin V Drug Allergy stomach upset [employer] Other (5 sources) Penicillin; Translations: [penicillin] Drug Allergy stomach upset [facility] Repository (5 sources) cefdinir; Translations: [CEFDINIR] Drug Allergy 09-15-19 20 [facility] Repository (3 sources) cefdinir Drug Allergy 10-08-19 24 Diarrhea [facility] (7 sources) Penicillins; Translations: [PENICILLINS] Drug Intolerance 05-05-20 21 Diarrhea, Nausea And Vomiting, GI intolerance, Unknown [facility] Work Phone: (3 sources) Shellfish Propensity to adverse reactions 01-29-20 14 Rash [facility] (1 source) Penicillins Propensity to adverse reactions to drug 05-05-20 21 Nausea And Vomiting [facility] (3 sources) SHELLFISH CONTAINING PRODUCTS; Translations: [SHELLFISH CONTAINING PRODUCTS] Propensity to adverse reactions to food (disorder) 01-29-20 14 [facility] Medications Current Medications Medication Drug Class(es) Dates Sig (Normalized) Sig (Original) [id number] 200 actuat albuterol 0.09 mg/actuat metered dose [...] Start: 10-23-2021 take 2 tablets by mo [facility] once daily Bumex 0.5 MG 2 tabs Orally Once a day for 90 days Oct, Active take 1 tablet by lynne once daily bumetanide (Bumex) 0.5 MG tablet Take 0.5 mg by mouth 1 (one) time each day at the same time. 0 Active take 4 tablets by mo ut in the morning, then take 4 tablets [...] lynne th in the morning calcium carbonate (Os-Shira) 1250 [...] (3 sources) Sodium-Glucose Cotransporter 2 Inhibitor Start: take 10 mg by mouth in the morning Jardiance 10 MG Take 10 mg by mouth in the morning. 0 10/25/2023 Active 15 ml ferric carboxymaltose 50 mg/ml injection (3 sources) Start: 022 Injectafer 750 MG/15ML as directed Intravenous every [...] mg oral tablet (7 sources) Sulfonylurea Start: 024 take 1 tablet by mouth once daily [...] Active Start: 03-07-2023 take 1 capsule by mo [facility] every twenty-four hours Flomax 0.4 MG 1 capsule Orally Once a day for 30 days Feb, Active take 1 capsule by [facility] every twenty-four hours in the morning tamsulosin [...] Problem Classification Problem Date Documented Date Episodic/Chronic Abdominal pain (2 sources) Unspecified abdominal pain; Translations: [Abdominal pain] Onset: 02-29-2024 Episodic Acute and unspecified renal failure (1 source) Acute kidney failure, unspecified; Translations: [Acute kidney failure, unspecified] Onset: 02-29-2024 Episodic Administrative/social admission (1 source) Dietary counseling and surveillance; Translations: [DIETARY COUNSELING AND SURVEILLANCE] Onset: 12-29-2022 Episodic Chronic kidney disease (19 sources) Chronic renal failure; Translations: [Chronic kidney disease, unspecified] Onset: 05-05-2021 10-30-2023 Chronic Chronic kidney disease (12 sources) Chronic kidney disease; Translations: [CHRONIC KIDNEY [...] Coronary arteriosclerosis; Translations: [Atherosclerotic heart disease of hoopa coronary artery without angina pectoris] Onset: 04-23-2023 10-30-2023 Chronic Deficiency and other anemia (10 sources) Anemia, unspecified; Translations: [ANEMIA UNSPECIFIED] Onset: 01-22-2022 Resolved: 04-02-2022 Episodic Diabetes mellitus with complications (11 sources) Type 2 diabetes mellitus with other [...] (primary) hypertension] Onset: 04-08-2017 Resolved: 04-02-2022 Chronic Fluid and electrolyte disorders (1 source) Dehydration; Translations: [Dehydration] Onset: 02-29-2024 Episodic Heart valve disorders (10 sources) Nonrheumatic aortic [...] W/STAGE 1-4 CKD/UNS CKD] Onset: 03-25-2022 Chronic Malaise and fatigue (1 source) Weakness; Translations: [Weakness] Onset: 03-09-2024 Episodic Mycoses (4 sources) Candidiasis of skin; Translations: [Candidiasis of skin and nail] Onset: 10-30-2023 10-30-2023 Episodic Nausea and vomiting (2 sources) Vomiting Onset: 02-29-2024 Episodic Noninfectious gastroenteritis (1 source) Noninfective gastroenteritis and colitis, unspecified; Translations: [Noninfective gastroenteritis and colitis, unspecified] Onset: 02-29-2024 Episodic Occlusion or stenosis of precerebral arteries (7 sources) Occlusion and stenosis of bilateral carotid arteries; Translations: [Occlusion and stenosis of left carotid artery] Onset: 04-23-2023 Chronic Osteoarthritis (4 sources) Bilateral shoulder osteoarthritis; Translations: [Primary osteoarthritis, right shoulder] Onset: 10-30-2023 10-30-2023 Chronic Other connective tissue disease (1 source) Pain in lower limb Onset: 01-22-2024 Episodic Other diseases of kidney and ureters (3 [...] Onset: 11-15-2022 Chronic Peripheral and visceral atherosclerosis (15 sources) Peripheral vascular disease; Translations: [Peripheral vascular disease, unspecified] Onset: 06-11-2021 10-30-2023 Chronic Residual codes; unclassified (7 sources) Localized edema; Translations: [LOCALIZED EDEMA] Onset: 01-14-2022 Resolved: 04-02-2022 Episodic Residual codes; unclassified (1 source) Other specified postprocedural states; Translations: [Other specified postprocedural states] Onset: 03-11-2024 Episodic Unclassified (1 source) Carotid stenosis, asymptomatic, left [I65.22] Onset: 01-27-2024 Unclassified (1 source) Carotid Artery Disease Onset: [...] respiratory systems] Onset: 1 05-05-2021 Episodic Other circulatory disease (2 sources) Other specified symptoms and signs involving the circulatory and respiratory systems; Translations: [Other specified symptoms and signs involving the circulatory and respiratory systems] Onset: 1 Episodic Other diseases of veins and lymphatics [...] Test Name Value Interpretation Reference Range Facility CBC AND AUTO DIFFon 03-09-20 24 Basophilic stippling LM Ql (Bld) 1+ Abnormal NONE [place] Comment on above: Performed By: #### P INR, 78701-9 #### [facility] ([id number]) [address] [place] [address] 92201 #### CBCA, BMP #### [facility] ([id number]) [address] [facility] [facility], [address] [place] [address] Eosinophils (Bld) [#/Vol] 0.6 10*3/uL High 0.0-0.4 [place] Comment on above: Performed By: #### P INR, 08113-6 #### [facility] ([id number]) [address] [place] [address] 50153 #### CBCA, BMP #### [facility] ([id number]) [address] [facility] [facility], [address] [place] [address] Eosinophils/100 WBC (Bld) 9.0 % Normal [place] Comment on above: Performed By: #### P INR, 17581-9 #### [facility] ([id number]) [address] [place] [address] 46199 #### CBCA, BMP #### [facility] ([id number]) [address] [facility] [facility], [address] [place] [address] Erythrocyte distribution width (RBC) [Ratio] 14.9 % Normal 11.5-15.0 [place] Comment on above: Performed By: #### P INR, 36457-4 #### [facility] ([id number]) [address] [place] [address] 12074 #### CBCA, BMP #### [facility] ([id number]) [address] [facility] [facility], [address] [place] [address] Hematocrit (Bld) [Volume fraction] 38.9 % Low 39-49 [place] Comment on above: Performed By: #### P INR, 55266-9 #### [facility] ([id number]) [address] [place] [address] 52404 #### CBCA, BMP #### [facility] ([id number]) [address] [facility], [address] [place] [address] Hemoglobin (Bld) [Mass/Vol] 13.2 g/dL Normal 13.0-17.0 [place] Comment on above: Performed By: #### P INR, 83344-3 #### [facility] ([id number]) [address] [place] [address] 03003 #### CBCA, BMP #### [facility] ([id number]) [address] [facility], [address] [place] [address] Lymphocytes (Bld) [#/Vol] 0.6 10*3/uL Low 1.0-3.5 [place] Comment on above: Performed By: #### P INR, 10914-6 #### [facility] ([id number]) [address] [place] [address] 30177 #### CBCA, BMP #### [facility] ([id number]) [address] [facility] [facility], [address] [place] [address] Lymphocytes/100 WBC (Bld) 9.0 % Normal [place] Comment on above: Performed By: #### P INR, 44425-4 #### [facility] ([id number]) [address] [place] [address] [place] [address] #### CBCA, BMP #### [facility] ([id number]) [address] [facility], [address] [place] [address] MCH (RBC) [Entitic mass] 33.7 pg Normal 27-34 [place] Comment on above: Performed By: #### P INR, 15078-1 #### [facility] ([id number]) [address] [place] [address] 74475 #### CBCA, BMP #### [facility] ([id number]) [address] [facility], [address] [place] [address] MCHC (RBC) [Mass/Vol] 34.0 g/dL Normal 32-36 [place] Comment on above: Performed By: #### P INR, 30933-1 #### [facility] ([id number]) [address] [place] [address] 21415 #### CBCA, BMP #### [facility] ([id number]) [address] [facility], [address] [place] [address] MCV (RBC) [Entitic vol] 99 fL Normal 80-100 [place] Comment on above: Performed By: #### P INR, 20462-2 #### [facility] ([id number]) [address] [place] [address] 17850 #### CBCA, BMP #### [facility] ([id number]) [address] [facility] [facility], [address] [place] [address] Monocytes (Bld) [#/Vol] 0.6 10*3/uL Normal 0-0.9 [place] Comment on above: Performed By: #### P INR, 41156-5 #### [facility] ([id number]) [address] [place] [address] 35767 #### CBCA, BMP #### [facility] ([id number]) [address] [place] [address] Monocytes/100 WBC (Bld) 9.0 % Normal [place] Comment on above: Performed By: #### P INR, 61392-2 #### [facility] ([id number]) [address] [place] [address] 04328 #### CBCA, BMP #### [facility] ([id number]) [address], [address] [place] [address] Neutrophils (Bld) [#/Vol] 5.4 10*3/uL Normal 1.5-6.6 [place] Comment on above: Performed By: #### P INR, 26515-7 #### [facility] ([id number]) [address] [place] [address] 07591 #### CBCA, BMP #### [facility] ([id number]) [address] [place] [address] Platelet mean volume (Bld) [Entitic vol] 8.9 fL Normal 7-12 [place] Comment on above: Performed By: #### P INR, 14449-5 #### [facility] ([id number]) [address] [place] [address] 03681 #### CBCA, BMP #### [facility] ([id number]) [address], [address] [place] [address] Platelets (Bld) [#/Vol] 182 10*3/uL Normal 150-450 [place] Comment on above: Performed By: #### P INR, 68288-0 #### [facility] ([id number]) [address] [place] [address] 49940 #### CBCA, BMP #### [facility] ([id number]) [address], [address] [place] [address] POLYCHROMASIA 1+ Abnormal NONE [place] Comment on above: Performed By: #### P INR, 52289-4 #### [facility] ([id number]) [address] [place] [address] 00900 #### CBCA, BMP #### [facility] ([id number]) [address], [address] [place] [address] RBC COUNT 3.93 X10E12/L Low 4.10-5.70 [place] Comment on above: Performed By: #### P INR, 20102-4 #### [facility] ([id number]) [address] [place] [address] 06930 #### CBCA, BMP #### [facility] ([id number]) [address] [facility], [address] [place] [address] SEG NEUTROPHIL 73.0 % Normal [place] Comment on above: Performed By: #### P INR, 42364-1 #### [facility] ([id number]) [address] [place] [address] 60645 #### CBCA, BMP #### [facility] ([id number]) [address], [address] [place] [address] WBC (Bld) [#/Vol] 7.2 10*3/uL Normal 4.0-11.0 [facility] Comment on above: Performed By: #### P INR, 17057-3 #### [facility] ([id number]) [address] [place] [address] 92145 #### CBCA, BMP #### [facility] ([id number]) [address], [address] [place] [address] COMPREHENSIVE METABOLIC PANE Deacon 03-09-2024 Albumin [Mass/Vol] 3.6 g/dL Normal 3.2-5.3 [facility] Comment on above: Performed By: #### P INR, 58663-5 #### [facility] ([id number]) [address] [place] [address] 55824 #### CBCIsra, BMP #### [facility] ([id number]) [address] [place] [address] ALP [Catalytic activity/Vol] 163 U/L High 39-130 [place] Comment on above: Performed By: #### P INR, 61003-2 #### [facility] ([id number]) [address] [place] [address] 97534 #### CBCIsra, BMP #### [facility] ([id number]) [address] [place] [address] ALT [Catalytic activity/Vol] 46 U/L High 0-40 [place] Comment on above: Performed By: #### P INR, 21713-9 #### [facility] ([id number]) [address] [place] [address] 21681 #### CBCA, BMP #### [facility] ([id number]) [address] [place] [address] Anion gap [Moles/Vol] 13 mmol/L Normal 5-15 [place] Comment on above: Performed By: #### P INR, 86998-8 #### [facility] ([id number]) [address] [place] [address] 39607 #### CBCA, BMP #### [facility] ([id number]) [address] [place] [address] AST [Catalytic activity/Vol] 44 U/L High 0-41 [place] Comment on above: Performed By: #### P INR, 80752-6 #### [facility] ([id number]) [address] [place] [address] 59274 #### CBCA, BMP #### [facility] ([id number]) [address] [place] [address] Bilirubin [Mass/Vol] 1.0 mg/dL Normal 0.3-1.2 [facility] Comment on above: Performed By: #### P INR, 23055-2 #### [facility] ([id number]) [address] [place] [address] 27478 #### CBCA, BMP #### [facility] ([id number]) [facility] [facility] [place] [address] Calcium [Mass/Vol] 8.3 mg/dL Low 8.5-10.5 [facility] Comment on above: Performed By: #### P INR, 77877-6 #### [facility] ([id number]) [address] [place] [address] 32950 #### CBCA, BMP #### [facility] ([id number]) [address] [facility] [place] [address] Chloride [Moles/Vol] 102 mmol/L Normal 98-109 [facility] Comment on above: Performed By: #### P INR, 61047-3 #### [facility] ([id number]) [address] [place] [address] 23809 #### CBCA, BMP #### [facility] ([id number]) [address] [place] [address] CO2 [Moles/Vol] 21 mmol/L Low 22-32 [place] Comment on above: Performed By: #### P INR, 65254-6 #### [facility] ([id number]) [address] [place] [address] 55024 #### CBCA, BMP #### [facility] ([id number]) [address] [place] [address] Creatinine [Mass/Vol] 1.97 mg/dL High 0.70-1.20 [place] Comment on above: Result Comment: METH OD TRACEABLE TO IDMS STANDARD Performed By: #### P INR, 34142-4 #### [facility] ([id number]) [address] [place] [address] 60635 #### WILL, BMP #### [facility] ([id number]) [address] [place] [address] GFR/1.73 sq M.predicted among non-blacks MDRD (S/P/Bld) [Vol rate/Area] 32 mL/min/{1.73_m2} Low >59 [place] Comment on above: Result Comment: Reported eGFR is based on the CKD-EPI 2020 equation that does not use a race coefficient. Performed By: #### P INR, 96439-0 #### [facility] ([id number]) [address] [place] [address] 11459 #### WILL, BMP #### [facility] ([id number]) [address] [place] [address] Glucose [Mass/Vol] 256 mg/dL High 65-99 [facility] Comment on above: Performed By: #### P INR, 79526-8 #### [facility] ([id number]) [address] [place] [address] 34458 #### CBCA, BMP #### [facility] ([id number]) [address] [place] [address] Potassium [Moles/Vol] 3.9 mmol/L Normal 3.5-5.0 [place] Comment on above: Performed By: #### P INR, 45529-4 #### [facility] ([id number]) [address] [place] [address] 47609 #### CBCA, BMP #### [facility] ([id number]) [address] [address] Protein [Mass/Vol] 7.8 g/dL Normal 6.0-8.0 [facility] Comment on above: Performed By: #### P INR, 80210-7 #### [facility] ([id number]) [address] [place] [address] 58098 #### CBCA, BMP #### [facility] ([id number]) [address] [facility], [address] [address] Sodium [Moles/Vol] 136 mmol/L Normal 134-146 [facility] Comment on above: Performed By: #### P INR, 08923-5 #### [facility] ([id number]) [address] [place] [address] 80290 #### CBCA, BMP #### [facility] ([id number]) [address] [facility], [address] [place] [address] Urea nitrogen [Mass/Vol] 60 mg/dL High 5-27 [place] Comment on above: Performed By: #### P INR, 79472-0 #### [facility] ([id number]) [address] [place] [address] 02751 #### CBCA, BMP #### [facility] ([id number]) [address] [place] [address] CT ABDOMEN AND PELVIS W CONT on 03-09-2024 CT ABDOMEN AND PELVIS W CONT CT ABDOMEN AND PELVIS W CONT CT ABDOMEN AND PELVIS W CONT HISTORY: acute abdominal pain, vomiting, diarrhea COMPARISON: CTA abdomen/pelvis 02/29/2024 TECHNIQUE: CT images of the abdomen and pelvis obtained following administration of contrast. Automated exposure control was utilized.All CT scans at this facility use dose modulation, iterative reconstruction, and/or weight based dosing when appropriate to reduce radiation dose to as low as reasonably achievable. CONTRAST: Oral: None IV: 100 mL Omnipaque 300 FINDINGS: LOWER CHEST: No acute findings of the lung bases. Few calcified granulomas in the right lower lobe. No cardiomegaly or pericardial effusion. LIVER AND BILIARY: Cirrhotic liver morphology with recanalization of umbilical vein consistent with portal venous hypertension. There are also some small gastroesophageal varices.. No definite hepatic lesion. Portal venous system is patent. Gallbladder is grossly unremarkable. Common bile duct is borderline enlarged on the coronal views, similar to prior exam.. PANCREAS: Unremarkable SPLEEN: Unremarkable. ADRENALS: Unremarkable bilaterally. KIDNEYS, URETERS, AND BLADDER: Symmetric enhancement of the renal parenchyma. Atrophic appearance bilaterally. No renal mass or lesion. The ureters are unremarkable. No evidence of collecting system dilatation. The bladder is unremarkable. REPRODUCTIVE ORGANS: Prostate unremarkable. GI TRACT AND PERITONEUM: Normal caliber large and small bowel. No evidence of obstruction. No intraperitoneal free air. Extensive diverticulosis throughout the colon, most significantly in the sigmoid colon. No significant pericolonic fat stranding to suggest diverticulitis. There is density within the lumen of the proximal stomach dependently which is nonspecific on a portal venous phase only exam. VASCULATURE: Abdominal aorta is nonaneurysmal. There is severe atherosclerotic calcifications of the aortoiliac and visceral vasculature. LYMPH NODES: No enlarged lymph nodes by size criteria. MUSCULOSKELETAL: The osseous abnormalities. IMPRESSION: 1. Cirrhosis and findings of portal venous hypertension as above. No ascites. 2. Extensive sigmoid diverticulosis without specific CT findings of acute diverticulitis. 3. There is dependent material within the posterior aspect of the proximal stomach which on the portal venous phase only exam is nonspecific and cannot be definitively treated to active GI bleeding without the benefit of a noncontrast enhanced exam or delayed phase exam. If there is concern for active upper GI bleeding, then endoscopy with direct visualization would be recommended. Approved by Resident Delroy Mcginnis MD on 03/09/2024 10:22 PM Kaz Bhakta MD have personally reviewed the image(s) and agree with and/or edited the report Finalized by Kaz Rodas MD on 03/09/2024 10:47 PM Normal [place] LIPASEon 03-09-2024 Lipase [Catalytic activity/Vol] 44 U/L High 17-40 [place] Comment on above: Performed By: #### P INR, 68198-7 #### [facility] ([id number]) [address] [place] [address] 86262 #### CBCA, BMP #### [facility] ([id number]) [address] [place] [address] MAGNESIUMon 03-09-2024 Magnesium [Mass/Vol] 1.7 mg/dL Low 1.8-2.6 [facility] Comment on above: Performed By: #### P INR, 25467-6 #### [facility] ([id number]) [address] [place] [address] 40935 #### CBCA, BMP #### [facility] ([id number]) [address], [address] [place] [address] Natriuretic peptide B [Mass/ Vol]on 03-09-2024 Natriuretic peptide B (Bld) [Mass/Vol] 83 pg/mL Normal <100.0 [place] Comment on above: Performed By: #### P INR, 98059-1 #### [facility] ([id number]) [address] [place] [address] 56668 #### CBCA, BMP #### [facility] ([id number]) [address], [address] [place] [address] PROTIME AND INRon 03-09-2024 INR Coag (PPP) [Relative time] 1.2 {INR} High 0.8-1.1 [place] Comment on above: Performed By: #### P INR, 02098-8 #### [facility] ([id number]) [address] [place] [address] 26653 #### CBCA, BMP #### [facility] ([id number]) [address], [address] [place] [address] PT Coag (PPP) [Time] 13.8 s High 9.8-13.2 [facility] Comment on above: Result Comment: NEW REFERENCE RANGE Performed By: #### P INR, 93898-8 #### [facility] ([id number]) [address] [place] [address] 57156 #### CBCA, BMP #### [facility] ([id number]) [address] [facility] [place] [address] Troponin I.cardiac High sens itivity method [Mass/Vol]on 03-09-2024 1 HOUR TROP I, HIGH SENSITIVITY 11 ng/L Normal <21 [place] Comment on above: Performed By: #### P INR, 16204-3 #### [facility] ([id number]) [address] [place] [address] 96505 #### CBCA, BMP #### [facility] ([id number]) [address] [facility], [address] [place] [address] TROPONIN I, HIGH SENSITIVITY 13 ng/L Normal <21 [place] Comment on above: Performed By: #### P INR, 48175-6 #### [facility] ([id number]) [address] [place] [address] 39526 #### CBCA, BMP #### [facility] ([id number]) [address] [facility], [address] [place] [address] aPTT Coag (PPP) [Time]on aPTT Coag (Bld) [Time] 34 s Normal 26-37 [place] Comment on above: Result Comment: NEW REFERENCE RANGE Performed By: #### P INR, 29085-1 #### [facility] ([id number]) [address] [place] [address] 06234 #### CBCA, BMP #### [facility] ([id number]) [address] [facility], [address] [place] [address] BASIC METABOLIC PANLon 02-28 Anion gap [Moles/Vol] 13 mmol/L Normal 5-15 [place] Comment on above: Performed By: #### P INR, 85086-8, BMP, 3040-3, 60332-9, LIVR, 42682-2, CBCA, 56662-9 #### [facility] ([id number]) [address] [place] [address] 37446 Calcium [Mass/Vol] 7.9 mg/dL Low 8.5-10.5 [facility] Comment on above: Performed By: #### P INR, 57443-9, BMP, 3040-3, 50907-5, LIVR, 92134-1, CBCA, 82045-6 #### [facility] ([id number]) [address] [place] [address] 72433 Chloride [Moles/Vol] 99 mmol/L Normal 98-109 [facility] Comment on above: Performed By: #### P INR, 08949-0, BMP, 3040-3, 81210-3, LIVR, 77763-4, CBCA, 60883-9 #### [facility] ([id number]) [address] [place] [address] 37164 CO2 [Moles/Vol] 22 mmol/L Normal 22-32 [place] Comment on above: Performed By: #### P INR, 82540-3, BMP, 3040-3, 18483-5, LIVR, 92065-3, CBCA, 04977-8 #### [facility] ([id number]) [address] [place] [address] 00695 Creatinine [Mass/Vol] 1.99 mg/dL High 0.70-1.20 [place] Comment on above: Result Comment: METH OD TRACEABLE TO IDMS STANDARD Performed By: #### P INR, 32891-3, BMP, 3040-3, 18065-2, LIVR, 68645-0, CBCA, 27010-2 #### [facility] ([id number]) [address] [place] [address] 56560 GFR/1.73 sq M.predicted among non-blacks MDRD (S/P/Bld) [Vol rate/Area] 32 mL/min/{1.73_m2} Low >59 [place] Comment on above: Result Comment: Reported eGFR is based on the CKD-EPI 2020 equation that does not use a race coefficient. Performed By: #### P INR, 27169-7, BMP, 3040-3, 36317-5, LIVR, 27965-3, CBCA, 74928-3 #### [facility] ([id number]) [address] [place] [address] 33150 Glucose [Mass/Vol] 253 mg/dL High 65-99 [facility] Comment on above: Performed By: #### P INR, 52995-5, BMP, 3040-3, 71717-0, LIVR, 08895-0, CBCA, 53279-8 #### [facility] ([id number]) [address] [place] [address] 75841 Potassium [Moles/Vol] 4.0 mmol/L Normal 3.5-5.0 [place] Comment on above: Performed By: #### P INR, 71825-4, BMP, 3040-3, 70586-5, LIVR, 11901-3, CBCA, 67317-5 #### [facility] ([id number]) [address] [place] [address] 70463 Sodium [Moles/Vol] 134 mmol/L Normal 134-146 [facility] Comment on above: Performed By: #### P INR, 56790-8, BMP, 3040-3, 67000-0, LIVR, 08775-6, CBCA, 11598-9 #### [facility] ([id number]) [address] [place] [address] 59398 Urea nitrogen [Mass/Vol] 60 mg/dL High 5-27 [place] Comment on above: Performed By: #### P INR, 43188-0, BMP, 3040-3, 60337-7, LIVR, 61044-4, CBCA, 31655-0 #### [facility] ([id number]) [address] [place] [address] 13482 CBC AND AUTO DIFFon 02-29-20 24 ABSOLUTE BASOPHIL 0.0 X10E9/L Normal 0.0-0.2 [facility] Comment on above: Performed By: #### P INR, 53467-7 #### [facility] ([id number]) [address] [place] [address] 61132 #### CBCA, BMP #### [facility] ([id number]) [address] [facility], [address] [place] [address] ABSOLUTE NEUTROPHIL 4.0 X10E9/L Normal 1.5-6.6 [facility] Comment on above: Performed By: #### P INR, 40523-4 #### [facility] ([id number]) [address] [place] [address] 14320 #### CBCA, BMP #### [facility] ([id number]) [address] [facility], [address] [place] [address] Basophils/100 WBC (Bld) 0.4 % Normal [place] Comment on above: Performed By: #### P INR, 40085-5 #### [facility] ([id number]) [address] [place] [address] 49120 #### CBCA, BMP #### [facility] ([id number]) [address], [address] [place] [address] Eosinophils (Bld) [#/Vol] 0.2 10*3/uL Normal 0.0-0.4 [place] Comment on above: Performed By: #### P INR, 36271-0 #### [facility] ([id number]) [address] [place] [address] 99402 #### CBCA, BMP #### [facility] ([id number]) [address], [address] [place] [address] Eosinophils/100 WBC (Bld) 4.2 % Normal [place] Comment on above: Performed By: #### P INR, 25209-8 #### [facility] ([id number]) [address] [place] [address] 87667 #### CBCA, BMP #### [facility] ([id number]) [address], [address] [place] [address] Erythrocyte distribution width (RBC) [Ratio] 15.4 % High 11.5-15.0 [place] Comment on above: Performed By: #### P INR, 56984-9 #### [facility] ([id number]) [address] [place] [address] 55151 #### CBCA, BMP #### [facility] ([id number]) [address], [address] [place] [address] Hematocrit (Bld) [Volume fraction] 35.8 % Low 39-49 [place] Comment on above: Performed By: #### P INR, 68733-6 #### [facility] ([id number]) [address] [place] [address] 56679 #### CBCA, BMP #### [facility] ([id number]) [address], [address] [place] [address] Hemoglobin (Bld) [Mass/Vol] 12.2 g/dL Low 13.0-17.0 [place] Comment on above: Performed By: #### P INR, 18482-1 #### [facility] ([id number]) [address] [place] [address] 14943 #### CBCIsra, BMP #### [facility] ([id number]) [address], [address] [place] [address] Lymphocytes (Bld) [#/Vol] 0.7 10*3/uL Low 1.0-3.5 [place] Comment on above: Performed By: #### P INR, 80256-2 #### [facility] ([id number]) [address] [place] [address] 81487 #### WILL, BMP #### [facility] ([id number]) [address] [place] [address] Lymphocytes/100 WBC (Bld) 13.0 % Normal [place] Comment on above: Performed By: #### P INR, 80503-8 #### [facility] ([id number]) [address] [place] [address] 22027 #### CBCIsra, BMP #### [facility] ([id number]) [address] [place] [address] MCH (RBC) [Entitic mass] 33.8 pg Normal 27-34 [place] Comment on above: Performed By: #### P INR, 65431-4 #### [facility] ([id number]) [address] [place] [address] 79529 #### CBCA, BMP #### [facility] ([id number]) [address], [address] [place] [address] MCHC (RBC) [Mass/Vol] 34.1 g/dL Normal 32-36 [place] Comment on above: Performed By: #### P INR, 67757-5 #### [facility] ([id number]) [address] [place] [address] 09072 #### CBCA, BMP #### [facility] ([id number]) [address], [address] [place] [address] MCV (RBC) [Entitic vol] 99 fL Normal 80-100 [place] Comment on above: Performed By: #### P INR, 72550-4 #### [facility] ([id number]) [address] [place] [address] 99107 #### CBCA, BMP #### [facility] ([id number]) [address], [address] [place] [address] Monocytes (Bld) [#/Vol] 0.7 10*3/uL Normal 0-0.9 [place] Comment on above: Performed By: #### P INR, 61638-2 #### [facility] ([id number]) [address] [place] [address] 94613 #### CBCA, BMP #### [facility] ([id number]) [address] [place] [address] Monocytes/100 WBC (Bld) 12.6 % Normal [place] Comment on above: Performed By: #### P INR, 34012-4 #### [facility] ([id number]) [address] [place] [address] 84558 #### CBCA, BMP #### [facility] ([id number]) [address], [address] [place] [address] Neutrophils/100 WBC (Bld) 69.8 % Normal [place] Comment on above: Performed By: #### P INR, 36832-2 #### [facility] ([id number]) [address] [place] [address] 40775 #### CBCA, BMP #### [facility] ([id number]) [address], [address] [place] [address] Platelet mean volume (Bld) [Entitic vol] 8.8 fL Normal 7-12 [place] Comment on above: Performed By: #### P INR, 31179-7 #### [facility] ([id number]) [address] [place] [address] 63720 #### CBCA, BMP #### [facility] ([id number]) [address] [place] [address] Platelets (Bld) [#/Vol] 172 10*3/uL Normal 150-450 [place] Comment on above: Performed By: #### P INR, 75300-3 #### [facility] ([id number]) [address] [place] [address] 83725 #### CBCA, BMP #### [facility] ([id number]) [address] [facility], [address] [place] [address] RBC COUNT 3.61 X10E12/L Low 4.10-5.70 [place] Comment on above: Performed By: #### P INR, 68447-2 #### [facility] ([id number]) [address] [place] [address] 10205 #### CBCA, BMP #### [facility] ([id number]) [address] [place] [address] WBC (Bld) [#/Vol] 5.7 10*3/uL Normal 4.0-11.0 [facility] Comment on above: Performed By: #### P INR, 29255-5 #### [facility] ([id number]) [address] [place] [address] 15332 #### CBCA, BMP #### [facility] ([id number]) [address] [facility], [address] [place] [address] CT CTA ABD AND PELVISon 02-13 CT CTA ABD AND PELVIS CT CTA ABD AND PELVIS CLINICAL HISTORY: Acute mesenteric ischemia. Nausea and vomiting and left lower quadrant pain. TECHNIQUE: Spiral multidetector CT Angiogram performed after the intravenous administration of contrast material through the abdomen and pelvis including 3-D Maximum intensity projection reconstructions constructed under concurrent physician supervision on a independent workstation. 3-D images obtained to improve visuxalization of vascular detail. All CT scans at this facility use dose modulation, iterative reconstruction, and/or weight based dosing when appropriate to reduce radiation dose to as low as reasonably achievable. Comparisons: None FINDINGS: CT abdomen and pelvis: The lack of oral contrast limits evaluation of abdominal parenchymal organs, adenopathy, and bowel. There are calcified granulomas in the right lower lobe. No pneumoperitoneum. Given limitations of arterial phase only imaging the liver has a cirrhotic morphology. No focal liver lesions are identified. The spleen, adrenal glands and pancreas appear unremarkable. Kidneys are unremarkable. Renal collecting systems and ureters are not dilated. Extensive sigmoid colonic diverticulosis is present without focal pericolonic soft tissue stranding nor abscess to suggest acute diverticulitis. There is no ascites. No retroperitoneal fluid collection. No dilated bowel loops. CT angiogram abdomen and pelvis: 3D reformatted images confirm the source data findings. Dense atherosclerotic aortoiliac vascular calcifications are present. There is no infrarenal abdominal aortic aneurysm. No aortic dissection or stenosis. There is either noncalcified plaque or thrombus in a crescentic fashion along the medial aspect of the left common iliac artery resulting in mild stenosis. There is calcified plaque within the proximal left common iliac artery resulting in at least mild stenosis. The external iliac arteries are patent bilaterally. The common femoral arteries and femoral bifurcations appear patent. Internal iliac arteries are patent. There is moderate to severe stenosis at the origin of the solitary left renal artery. There is mild stenosis at the origin of the main right renal artery with a patent smaller right renal artery to the posterior pole. There is mild stenosis at the origin of the celiac artery. There is at least moderate if not severe densely calcified stenosis within the proximal portion of the superior mesenteric artery. The inferior mesentery artery is somewhat large in caliber and is patent. IMPRESSION: 1. Cirrhotic liver morphology. 2. Mild celiac artery stenosis. 3. 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 4. Patent inferior mesenteric artery. Finalized by Kaz Rodas MD on 02/29/2024 9:56 AM Normal [place] LIPASEon 02-29-2024 Lipase [Catalytic activity/Vol] 31 U/L Normal 17-40 [place] Comment on above: Performed By: #### P INR, 79906-9, BMP, 3040-3, 38833-0, LIVR, 60652-9, CBCA, 66200-7 #### [facility] ([id number]) [address] [place] [address] 40102 LIVER PANELon 02-29-2024 Albumin [Mass/Vol] 3.0 g/dL Low 3.2-5.3 [facility] Comment on above: Performed By: #### P INR, 55703-4 #### [facility] ([id number]) [address] [place] [address] 09012 #### CBCA, BMP #### [facility] ([id number]) [address] [facility], [address] [place] [address] ALP [Catalytic activity/Vol] 132 U/L High 39-130 [place] Comment on above: Performed By: #### P INR, 64963-9 #### [facility] ([id number]) [address] [place] [address] 99609 #### CBCA, BMP #### [facility] ([id number]) [address] [facility], [address] [place] [address] ALT [Catalytic activity/Vol] 36 U/L Normal 0-40 [place] Comment on above: Performed By: #### P INR, 21678-6 #### [facility] ([id number]) [address] [place] [address] 24194 #### CBCA, BMP #### [facility] ([id number]) [address] [place] [address] AST [Catalytic activity/Vol] 38 U/L Normal 0-41 [place] Comment on above: Performed By: #### P INR, 90176-2 #### [facility] ([id number]) [address] [place] [address] 59044 #### CBCA, BMP #### [facility] ([id number]) [address] [place] [address] Bilirubin [Mass/Vol] 1.2 mg/dL Normal 0.3-1.2 [facility] Comment on above: Performed By: #### P INR, 11554-4 #### [facility] ([id number]) [address] [place] [address] 95804 #### CBCA, BMP #### [facility] ([id number]) [address] [place] [address] Bilirubin.direct [Mass/Vol] 0.2 mg/dL Normal 0.0-0.4 [place] Comment on above: Performed By: #### P INR, 80984-9 #### [facility] ([id number]) [address] [place] [address] 32266 #### CBCA, BMP #### [facility] ([id number]) [address] [place] [address] Protein [Mass/Vol] 6.5 g/dL Normal 6.0-8.0 [facility] Comment on above: Performed By: #### P INR, 79650-5 #### [facility] ([id number]) [address] [place] [address] 45890 #### CBCA, BMP #### [facility] ([id number]) [address] [place] [address] Lactate (P luis alberto) [Moles/Vol]o n 02-29-2024 LACTATE W/REFLEX 3.1 mmol/L High 0.4-2.[address] [facility] Comment on above: Performed By: #### P INR, 07950-4, BMP, 3040-3, 18263-6, LIVR, 95556-2, CBCA, 49439-4 #### [facility] ([id number]) [address] [place] [address] 18900 MAGNESIUMon 02-29-2024 Magnesium [Mass/Vol] 1.9 mg/dL Normal 1.8-2.6 [facility] Comment on above: Performed By: #### P INR, 46317-5 #### [facility] ([id number]) [address] [place] [address] 46540 #### CBCA, BMP #### [facility] ([id number]) [address] [facility], [address] [place] [address] PROTIME AND INRon 02-29-2024 INR Coag (PPP) [Relative time] 1.3 {INR} High 0.8-1.1 [place] Comment on above: Performed By: #### P INR, 18305-1, BMP, 3040-3, 71413-0, LIVR, 36027-8, CBCA, 11233-9 #### [facility] ([id number]) [address] [place] [address] 74309 PT Coag (PPP) [Time] 14.6 s High 9.8-13.2 [facility] Comment on above: Result Comment: NEW REFERENCE RANGE Performed By: #### P INR, 24294-5, BMP, 3040-3, 82047-7, LIVR, 74521-3, CBCA, 53031-9 #### [facility] ([id number]) [address] [place] [address] 93213 Troponin I.cardiac High sens itivity method [Mass/Vol]on 02-29-2024 1 HOUR TROP I, HIGH SENSITIVITY 11 ng/L Normal <21 [place] Comment on above: Performed By: #### P INR, 39973-2 #### [facility] ([id number]) [address] [place] [address] 96749 #### CBCA, BMP #### [facility] ([id number]) [address] [facility], [address] [place] [address] TROPONIN I, HIGH SENSITIVITY 12 ng/L Normal <21 [place] Comment on above: Performed By: #### P INR, 37668-8 #### [facility] ([id number]) [address] [place] [address] 15079 #### CBCA, BMP #### [facility] ([id number]) [address] [facility] [place] [address] aPTT Coag (PPP) [Time]on aPTT Coag (Bld) [Time] 31 s Normal 26-37 [place] Comment on above: Result Comment: NEW REFERENCE RANGE Performed By: #### P INR, 27674-9, BMP, 3040-3, 96547-1, LIVR, 76458-5, CBCA, 73363-4 #### [facility] ([id number]) [address] [place] [address] 65661 BASIC METABOLIC PANLon 02-11 Anion gap [Moles/Vol] 10 mmol/L Normal 5-15 [facility] Comment on above: Performed By: #### C BCA, BMP #### [facility] ([id number]) [address] [facility], [address] [place] [address] Calcium [Mass/Vol] 8.8 mg/dL Normal 8.5-10.5 [facility] Comment on above: Performed By: #### C BCA, BMP #### [facility] ([id number]) [address] [place] [address] Chloride [Moles/Vol] 103 mmol/L Normal 98-109 [facility] Comment on above: Performed By: #### C BCA, BMP #### [facility] ([id number]) [address] [place] [address] CO2 [Moles/Vol] 24 mmol/L Normal 22-32 [facility] Comment on above: Performed By: #### C BCA, BMP #### [facility] ([id number]) [address] [place] [address] Creatinine [Mass/Vol] 1.14 mg/dL Normal 0.60-1.30 [facility] Comment on above: Result Comment: METH OD TRACEABLE TO IDMS STANDARD Performed By: #### C BCA, BMP #### [facility] ([id number]) [address] [place] [address] GFR/1.73 sq M.predicted among non-blacks MDRD (S/P/Bld) [Vol rate/Area] 62 mL/min/{1.73_m2} Normal >59 [facility] Comment on above: Result Comment: Reported eGFR is based on the CKD-EPI 2020 equation that does not use a race coefficient. Performed By: #### C BCA, BMP #### [facility] ([id number]) [address] [place] [address] Glucose [Mass/Vol] 155 mg/dL High 65-99 [facility] Comment on above: Performed By: #### C BCA, BMP #### [facility] ([id number]) [address] [address] [place] [address] Potassium [Moles/Vol] 3.9 mmol/L Normal 3.5-5.0 [facility] Comment on above: Performed By: #### C BCA, BMP #### [facility] ([id number]) [address] [place] [address] Sodium [Moles/Vol] 137 mmol/L Normal 134-146 [facility] Comment on above: Performed By: #### C CARLA, BMP #### [facility] ([id number]) [address] [place] [address] Urea nitrogen [Mass/Vol] 27 mg/dL Normal 5-27 [facility] Comment on above: Performed By: #### C CARLA, BMP #### [facility] ([id number]) [address] [place] [address] CBC AND AUTO DIFFon 02-12-20 24 ABSOLUTE BASOPHIL 0.0 X10E9/L Normal 0.0-0.2 [facility] Comment on above: Performed By: #### C CARLA, BMP #### [facility] ([id number]) [address] [place] [address] ABSOLUTE NEUTROPHIL 5.2 X10E9/L Normal 1.5-6.6 [facility] Comment on above: Performed By: #### Malik AGUIRRE, BMP #### [facility] ([id number]) [address] [place] [address] Basophils/100 WBC (Bld) 0.2 % Normal [facility] Comment on above: Performed By: #### Malik AGUIRRE, BMP #### [facility] ([id number]) [address], [address] [place] [address] Eosinophils (Bld) [#/Vol] 0.0 10*3/uL Normal 0.0-0.4 [facility] Comment on above: Performed By: #### Malik AGUIRRE, BMP #### [facility] ([id number]) [address], [address] [place] [address] Eosinophils/100 WBC (Bld) 0.1 % Normal [facility] Comment on above: Performed By: #### C CARLA, BMP #### [facility] ([id number]) [address], [address] [place] [address] Erythrocyte distribution width (RBC) [Ratio] 15.0 % Normal 11.5-15.0 [facility] Comment on above: Performed By: #### C BCA, BMP #### [facility] ([id number]) [address], [address] [place] [address] Hematocrit (Bld) [Volume fraction] 34.7 % Low 39-49 [facility] Comment on above: Performed By: #### C CARLA, BMP #### [facility] ([id number]) [address], [address] [place] [address] Hemoglobin (Bld) [Mass/Vol] 12.0 g/dL Low 13.0-17.0 [facility] Comment on above: Performed By: #### C CARLA, BMP #### [facility] ([id number]) [address], [address] [place] [address] Lymphocytes (Bld) [#/Vol] 0.6 10*3/uL Low 1.0-3.5 [facility] Comment on above: Performed By: #### C CARLA, BMP #### [facility] ([id number]) [address], [address] [place] [address] Lymphocytes/100 WBC (Bld) 10.3 % Normal [facility] Comment on above: Performed By: #### C BCA, BMP #### [facility] ([id number]) [address], [address] [place] [address] MCH (RBC) [Entitic mass] 34.0 pg Normal 27-34 [facility] Comment on above: Performed By: #### C BCA, BMP #### [facility] ([id number]) [address], [address] [place] [address] MCHC (RBC) [Mass/Vol] 34.7 g/dL Normal 32-36 [facility] Comment on above: Performed By: #### C CARLA, BMP #### [facility] ([id number]) [address], [address] [place] [address] MCV (RBC) [Entitic vol] 98 fL Normal 80-100 [facility] Comment on above: Performed By: #### C BCA, BMP #### [facility] ([id number]) [address], [address] [place] [address] Monocytes (Bld) [#/Vol] 0.3 10*3/uL Normal 0-0.9 [facility] Comment on above: Performed By: #### C BCA, BMP #### [facility] ([id number]) [address], [address] [place] [address] Monocytes/100 WBC (Bld) 5.1 % Normal [facility] Comment on above: Performed By: #### C BCA, BMP #### [facility] ([id number]) [address], [address] [place] [address] Neutrophils/100 WBC (Bld) 84.3 % Normal [facility] Comment on above: Performed By: #### C BCA, BMP #### [facility] ([id number]) [address], [address] [place] [address] Platelet mean volume (Bld) [Entitic vol] 8.3 fL Normal 7-12 [facility] Comment on above: Performed By: #### C BCA, BMP #### [facility] ([id number]) [address], [address] [place] [address] Platelets (Bld) [#/Vol] 111 10*3/uL Low 150-450 [facility] Comment on above: Performed By: #### C BCA, BMP #### [facility] ([id number]) [address], [address] [place] [address] RBC COUNT 3.53 X10E12/L Low 4.10-5.70 [facility] Comment on above: Performed By: #### C BCA, BMP #### [facility] ([id number]) [address] [place] [address] WBC (Bld) [#/Vol] 6.1 10*3/uL Normal 4.0-11.0 [facility] Comment on above: Performed By: #### C CARLA, BMP #### [facility] ([id number]) [address], [facility] [address] [place] [address] Calcium.ionized (Bld) [Mass/ Vol]on 02-12-2024 IONIZED CALCIUM 4.8 mg/dL Normal 4.5-5.3 [facility] Comment on above: Performed By: #### 3 8230-9, 18701-3 #### [facility] ([id number]) [address], [address] [place] [address] Magnesium Ionized ISE (Bld) [Moles/Vol]on 02-12-2024 Magnesium [Moles/Vol] 0.51 mmol/L Normal 0.45-0.74 [facility] Comment on above: Result Comment: NEW REFERENCE RANGE Performed By: #### 3 8230-9, 68049-1 #### [facility] ([id number]) [address], [address] [place] [address] CBC AND AUTO DIFFon 02-11-20 24 ABSOLUTE BASOPHIL 0.0 X10E9/L Normal 0.0-0.2 [facility] Comment on above: Performed By: #### C BCA #### [facility] ([id number]) [address] [place] [address] ABSOLUTE NEUTROPHIL 5.1 X10E9/L Normal 1.5-6.6 [facility] Comment on above: Performed By: #### C BCA #### [facility] ([id number]) [address], [address] [place] [address] Basophils/100 WBC (Bld) 0.5 % Normal [facility] Comment on above: Performed By: #### C BCA #### [facility] ([id number]) [address] [place] [address] Eosinophils (Bld) [#/Vol] 0.2 10*3/uL Normal 0.0-0.4 [facility] Comment on above: Performed By: #### C BCA #### [facility] ([id number]) [address] [place] [address] Eosinophils/100 WBC (Bld) 3.2 % Normal [facility] Comment on above: Performed By: #### C BCA #### [facility] ([id number]) [address] [place] [address] Erythrocyte distribution width (RBC) [Ratio] 15.0 % Normal 11.5-15.0 [facility] Comment on above: Performed By: #### C BCA #### [facility] ([id number]) [address] [place] [address] Hematocrit (Bld) [Volume fraction] 36.0 % Low 39-49 [facility] Comment on above: Performed By: #### C BCA #### [facility] ([id number]) [address] [place] [address] Hemoglobin (Bld) [Mass/Vol] 12.1 g/dL Low 13.0-17.0 [facility] Comment on above: Performed By: #### C BCA #### [facility] ([id number]) [address] [place] [address] Lymphocytes (Bld) [#/Vol] 0.9 10*3/uL Low 1.0-3.5 [facility] Comment on above: Performed By: #### C BCA #### [facility] ([id number]) [address], [address] [place] [address] Lymphocytes/100 WBC (Bld) 13.4 % Normal [facility] Comment on above: Performed By: #### C BCA #### [facility] ([id number]) [address] [place] [address] MCH (RBC) [Entitic mass] 33.3 pg Normal 27-34 [facility] Comment on above: Performed By: #### C BCA #### [facility] ([id number]) [address], [address] [place] [address] MCHC (RBC) [Mass/Vol] 33.5 g/dL Normal 32-36 [facility] Comment on above: Performed By: #### C BCA #### [facility] ([id number]) [address], [address] [place] [address] MCV (RBC) [Entitic vol] 100 fL Normal 80-100 [facility] Comment on above: Performed By: #### C BCA #### [facility] ([id number]) [address], [address] [place] [address] Monocytes (Bld) [#/Vol] 0.2 10*3/uL Normal 0-0.9 [facility] Comment on above: Performed By: #### C BCA #### [facility] ([id number]) [address], [address] [place] [address] Monocytes/100 WBC (Bld) 3.0 % Normal [facility] Comment on above: Performed By: #### C BCA #### [facility] ([id number]) [address], [address] [place] [address] Neutrophils/100 WBC (Bld) 79.9 % Normal [facility] Comment on above: Performed By: #### C BCA #### [facility] ([id number]) [address] [place] [address] Platelet mean volume (Bld) [Entitic vol] 8.6 fL Normal 7-12 [facility] Comment on above: Performed By: #### C BCA #### [facility] ([id number]) [address] [place] [address] Platelets (Bld) [#/Vol] 117 10*3/uL Low 150-450 [facility] Comment on above: Performed By: #### C BCA #### [facility] ([id number]) [address], [address] [place] [address] RBC COUNT 3.62 X10E12/L Low 4.10-5.70 [facility] Comment on above: Performed By: #### C BCA #### [facility] ([id number]) [address], [address] [place] [address] WBC (Bld) [#/Vol] 6.4 10*3/uL Normal 4.0-11.0 [facility] Comment on above: Performed By: #### C BCA #### [facility] ([id number]) [address], [address] [place] [address] Glucose Glucometer (BldC) [M ass/Vol]on 02-11-2024 Glucose [Mass/Vol] 179 mg/dL High 65-99 [facility] Magnesium Ionized ISE (Bld) [Moles/Vol]on 02-11-2024 Magnesium [Moles/Vol] 0.47 mmol/L Normal 0.45-0.74 [facility] Comment on above: Result Comment: NEW REFERENCE RANGE Performed By: #### 7 3572-0 #### [facility] ([id number]) [address] [place] [address] Glucose Glucometer (BldC) [M ass/Vol]on 01-27-2024 Glucose [Mass/Vol] 203 mg/dL High 65-99 [facility] BASIC METABOLIC PANLon 01-18 Anion gap [Moles/Vol] 9 mmol/L Normal 5-15 [place] Comment on above: Performed By: #### P INR, 59929-3 #### [facility] ([id number]) [address] [place] [address] #### CBCA, BMP #### [facility] ([id number]) [address] [place] [address] Calcium [Mass/Vol] 9.4 mg/dL Normal 8.5-10.5 [facility] Comment on above: Performed By: #### P INR, 98440-2 #### [facility] ([id number]) [address] [place] [address] #### CBCA, BMP #### [facility] ([id number]) [address] [place] [address] Chloride [Moles/Vol] 102 mmol/L Normal 98-109 [facility] Comment on above: Performed By: #### P INR, 82281-6 #### [facility] ([id number]) [address] [place] [address] #### CBCA, BMP #### [facility] ([id number]) [address] [place] [address] CO2 [Moles/Vol] 27 mmol/L Normal 22-32 [place] Comment on above: Performed By: #### P INR, 61723-6 #### [facility] ([id number]) [address] [place] [address] #### CBCA, BMP #### [facility] ([id number]) [address] [place] [address] Creatinine [Mass/Vol] 1.50 mg/dL High 0.60-1.30 [place] Comment on above: Result Comment: METH OD TRACEABLE TO IDMS STANDARD Performed By: #### P INR, 70432-8 #### [facility] ([id number]) [address] [place] [address] #### WILL, BMP #### [facility] ([id number]) [address] [facility], [facility] [address] [place] [address] GFR/1.73 sq M.predicted among non-blacks MDRD (S/P/Bld) [Vol rate/Area] 45 mL/min/{1.73_m2} Low >59 [place] Comment on above: Result Comment: Reported eGFR is based on the CKD-EPI 2020 equation that does not use a race coefficient. Performed By: #### P INR, 51580-2 #### [facility] ([id number]) [address] [place] [address] #### WILL, BMP #### [facility] ([id number]) [address] [facility], [address] [address] Glucose [Mass/Vol] 209 mg/dL High 65-99 [facility] Comment on above: Performed By: #### P INR, 35267-0 #### [facility] ([id number]) [address] [place] [address] #### CBCA, BMP #### [facility] ([id number]) [address] [facility], [facility] [address] [place] [address] Potassium [Moles/Vol] 4.0 mmol/L Normal 3.5-5.0 [place] Comment on above: Performed By: #### P INR, 06005-8 #### [facility] ([id number]) [address] [place] [address] #### CBCA, BMP #### [facility] ([id number]) [address] [place] [address] Sodium [Moles/Vol] 138 mmol/L Normal 134-146 [facility] Comment on above: Performed By: #### P INR, 05872-1 #### [facility] ([id number]) [address] [place] [address] #### CBCA, BMP #### [facility] ([id number]) [address] [facility], [address] [place] [address] Urea nitrogen [Mass/Vol] 38 mg/dL High 5-27 [place] Comment on above: Performed By: #### P INR, 84799-1 #### [facility] ([id number]) [address] [place] [address] #### CBCA, BMP #### [facility] ([id number]) [address] [facility], [address] [place] [address] CBC AND AUTO DIFFon 01-19-20 24 ABSOLUTE BASOPHIL 0.1 X10E9/L Normal 0.0-0.2 [facility] Comment on above: Performed By: #### P INR, 46026-9 #### [facility] ([id number]) [address] [place] [address] #### CBCA, BMP #### [facility] ([id number]) [address] [facility], [address] [place] [address] ABSOLUTE NEUTROPHIL 3.3 X10E9/L Normal 1.5-6.6 [facility] Comment on above: Performed By: #### P INR, 47596-0 #### [facility] ([id number]) [address] [place] [address] #### CBCA, BMP #### [facility] ([id number]) [address] [place] [address] Basophils/100 WBC (Bld) 1.1 % Normal [facility] Comment on above: Performed By: #### P INR, 96850-6 #### [facility] ([id number]) [address] [place] [address] #### CBCA, BMP #### [facility] ([id number]) [address] [place] [address] Eosinophils (Bld) [#/Vol] 0.2 10*3/uL Normal 0.0-0.4 [place] Comment on above: Performed By: #### P INR, 61968-8 #### [facility] ([id number]) [address] [place] [address] #### CBCA, BMP #### [facility] ([id number]) [address] [place] [address] Eosinophils/100 WBC (Bld) 5.0 % Normal [place] Comment on above: Performed By: #### P INR, 13458-7 #### [facility] ([id number]) [address] [place] [address] #### CBCA, BMP #### [facility] ([id number]) [address] [place] [address] Erythrocyte distribution width (RBC) [Ratio] 14.9 % Normal 11.5-15.0 [facility] Comment on above: Performed By: #### P INR, 92546-7 #### [facility] ([id number]) [address] [place] [address]23 #### CBCA, BMP #### [facility] ([id number]) [address] [place] [address] Hematocrit (Bld) [Volume fraction] 39.4 % Normal 39-49 [place] Comment on above: Performed By: #### P INR, 42343-4 #### [facility] ([id number]) [address] [place] [address]8399 #### CBCA, BMP #### [facility] ([id number]) [address] [place] [address] Hemoglobin (Bld) [Mass/Vol] 13.2 g/dL Normal 13.0-17.0 [place] Comment on above: Performed By: #### P INR, 91275-2 #### [facility] ([id number]) [address] [place] [address] 96195 #### CBCA, BMP #### [facility] ([id number]) [address] [facility], [address] [place] [address] Lymphocytes (Bld) [#/Vol] 1.0 10*3/uL Normal 1.0-3.5 [facility] Comment on above: Performed By: #### P INR, 65674-4 #### [facility] ([id number]) [address] [place] [address]2434 #### CBCA, BMP #### [facility] ([id number]) [address] [place] [address] Lymphocytes/100 WBC (Bld) 21.2 % Normal [facility] Comment on above: Performed By: #### P INR, 32866-2 #### [facility] ([id number]) [address] [place] [address] 97731 #### CBCA, BMP #### [facility] ([id number]) [address] [place] [address] MCH (RBC) [Entitic mass] 33.3 pg Normal 27-34 [facility] Comment on above: Performed By: #### P INR, 31431-1 #### [facility] ([id number]) [address] [place] [address]23 #### CBCIsra, BMP #### [facility] ([id number]) [address] [place] [address] MCHC (RBC) [Mass/Vol] 33.6 g/dL Normal 32-36 [facility] Comment on above: Performed By: #### P INR, 00646-2 #### [facility] ([id number]) [address] [place] [address] 12291 #### WILL BMP #### [facility] ([id number]) [address] [place] [address] MCV (RBC) [Entitic vol] 99 fL Normal 80-100 [facility] Comment on above: Performed By: #### P INR, 27432-8 #### [facility] ([id number]) [address] [place] [address] 10234 #### WILL, BMP #### [facility] ([id number]) [address] [place] [address] Monocytes (Bld) [#/Vol] 0.3 10*3/uL Normal 0-0.9 [facility] Comment on above: Performed By: #### P INR, 51878-3 #### [facility] ([id number]) [address] [place] [address] 99082 #### CBCIsra, BMP #### [facility] ([id number]) [address] [place] [address] Monocytes/100 WBC (Bld) 5.6 % Normal [facility] Comment on above: Performed By: #### P INR, 41708-7 #### [facility] ([id number]) [address] [place] [address] 94780 #### CBCA, BMP #### [facility] ([id number]) [address] [place] [address] Neutrophils/100 WBC (Bld) 67.1 % Normal [facility] Comment on above: Performed By: #### P INR, 74844-7 #### [facility] ([id number]) [address] [place] [address] 09430 #### CBCA, BMP #### [facility] ([id number]) [address] [facility], [address] [place] [address] Platelet mean volume (Bld) [Entitic vol] 8.8 fL Normal 7-12 [facility] Comment on above: Performed By: #### P INR, 92422-8 #### [facility] ([id number]) [address] [place] [address] 79835 #### CBCA, BMP #### [facility] ([id number]) [address] [facility], [address] [place] [address] Platelets (Bld) [#/Vol] 137 10*3/uL Low 150-450 [facility] Comment on above: Performed By: #### P INR, 32900-6 #### [facility] ([id number]) [address] [place] [address] 73427 #### CBCA, BMP #### [facility] ([id number]) [address] [place] [address] RBC COUNT 3.97 X10E12/L Low 4.10-5.70 [facility] Comment on above: Performed By: #### P INR, 88932-1 #### [facility] ([id number]) [address] [place] [address] 20996 #### CBCA, BMP #### [facility] ([id number]) [address] [place] [address] WBC (Bld) [#/Vol] 4.9 10*3/uL Normal 4.0-11.0 [facility] Comment on above: Performed By: #### P INR, 87689-2 #### [facility] ([id number]) [address] [place] [address] 82766 #### CBCA, BMP #### [facility] ([id number]) [address] [facility], [address] [place] [address] PROTIME AND INRon 01-19-2024 INR Coag (PPP) [Relative time] 1.1 {INR} Normal 0.8-1.1 [place] Comment on above: Performed By: #### P INR, 62809-0 #### [facility] ([id number]) [address] [place] [address] 29809 #### CBCA, BMP #### [facility] ([id number]) [address] [facility], [address] [place] [address] PT Coag (PPP) [Time] 12.8 s Normal 9.8-13.2 [facility] Comment on above: Result Comment: NEW REFERENCE RANGE Performed By: #### P INR, 25656-9 #### [facility] ([id number]) [address] [place] [address] 89763 #### CBCA, BMP #### [facility] ([id number]) [address] [facility], [address] [place] [address] aPTT Coag (PPP) [Time]on aPTT Coag (Bld) [Time] 34 s Normal 26-37 [place] Comment on above: Result Comment: NEW REFERENCE RANGE Performed By: #### P INR, 37943-4 #### [facility] ([id number]) [address] [place] [address], [employer] [place] [address] #### CBCA, BMP #### [facility] ([id number]) [address] [place] [address], [address] [place] [address] 36on 12-25-2023 36 Patient needs upcomi ng CEA with Dr. Enciso and he is requesting clearance. Does patient need stress test prior or are you able to clear him? Please advise. Thank you. Normal [facility] Office Visiton 11-03-2023 Follow-up visit [id number] Carlo Suarez 1935 [facility] Provider Department Center 11/03/2023 JESSY ARAGON Family History Problem Relation Age of Onset No Known Problems Mother No Known Problems Father Family Status - Relation Status Age at Mother Father Level of Service:60814 [place] OFFICE/OUTPATIENT ESTABLISHED LOW MDM 20 MIN Normal [facility] Office Visiton 04-23-2023 Follow-up visit [id number] Carlo Suarez 1935 [facility] Provider Department Center 04/23/2023 [id number] DOUGLAS Family History Problem Relation Age of Onset No Known Problems Mother No Known Problems Father Family Status - Relation Status Age at Mother Father Level of Service:02853 [place] OFFICE/OUTPATIENT ESTABLISHED MOD MDM 30-39 MIN Reason for Visit and Comments: Follow-up [[id number]] - Pt is here for f/u labs, CXR, stress test, and echo Normal [facility] Office Visiton 03-10-2023 Follow-up visit [id number] Carlo Suarez 1935 Date Provider Department Center 03/10/2023 JESSY ARAGON Family History Problem Relation Age of Onset No Known Problems Mother No Known Problems Father Family Status - Relation Status Age at Mother Father Level of Service:39945 [place] OFFICE/OUTPATIENT ESTABLISHED HIGH MDM 40-54 MIN Normal [facility] Orders Onlyon 03-10-2023 Orders Only [id number] Carlo Suarez 1935 [facility] Provider Department Center 03/10/2023 DEEPIKA GENTILE CARD [facility] Family History Problem Relation Age of Onset No Known Problems Mother No Known Problems Father Family Status - Relation Status Age at Mother Father Normal [facility] PTH INTACTon 02-12-2023 PTH, Intact 28 pg/mL Normal 15-65 [facility] Comment on above: Performed By: #### B MP, BNP #### [facility] [address] [place] [address] Dr. Mary Kay Vaca FERRITINon 02-11-2023 Ferritin [Mass/Vol] 685.0 ng/mL Critically high 26.0-388.0 [facility] Comment on above: Performed By: #### B MP, BNP #### [facility] [address] [place] [address] Dr. Mary Kay Vaca HEMOGRAM AND PLATELon 2022 Hematocrit (Bld) [Volume fraction] 37.8 % Critically low 42.0-54.0 [facility] Comment on above: Performed By: #### R ENAL, LIPID #### [facility] [address] [place] [address] Dr. Mary Kay Vaca Hemoglobin (Bld) [Mass/Vol] 12.8 g/dL Critically low 14.0-18.0 [facility] Comment on above: Performed By: #### R ENAL, LIPID #### [facility] [address] [place] [address] Dr. Mary Kay Vaca MCH (RBC) [Entitic mass] 32.5 pg Normal 25.9-34.0 [facility] Comment on above: Performed By: #### R ENAL, LIPID #### [facility] [address] [place] [address] Dr. Mary Kay Vaca MCHC (RBC) [Mass/Vol] 33.9 g/dL Normal 29.9-35.2 [facility] Comment on above: Performed By: #### R ENAL, LIPID #### [facility] [address] [place] [address] Dr. Mary Kay Vaca MCV (RBC) [Entitic vol] 95.9 fL Critically high 80.0-94.0 [facility] Comment on above: Performed By: #### R ENAL, LIPID #### [facility] [address] [address] [address] Mary Kay Vaca PLT 163 103/ul Normal 150-450 [facility] Comment on above: Performed By: #### R ENAL, LIPID #### [facility] [address] [address] [address] Mary Kay Vaca RBC 3.94 106/ul Critically low 4.70-6.10 [facility] Comment on above: Performed By: #### R ENAL, LIPID #### [facility] [address] [address] [address] Mary Kay Vaca WBC 6.3 103/ul Normal 4.0-11.0 [facility] Comment on above: Performed By: #### R ENAL, LIPID #### [facility] [address] [address] [address] Mary Kay Vaca IRON AND TIBCon 02-11-2023 % SATURATION 40.8 % Normal [facility] Comment on above: Performed By: #### B MP, BNP #### [facility] [address] [address] [address] Mary Kay Vaca Iron [Mass/Vol] 127.0 ug/dL Normal 65.0-175.0 [facility] Comment on above: Performed By: #### B MP, BNP #### [facility] [address] [address] [address] Mary Kay Vaca TIBC DIRECT 311.0 ug/dL Normal 250.0-450.0 [facility] Comment on above: Performed By: #### B MP, BNP #### [facility] [address] [address] [address] Mary Kay Vaca MAGNESIUMon 02-11-2023 Magnesium [Mass/Vol] 1.7 mg/dL Critically low 1.8-2.4 [facility] Comment on above: Performed By: #### R ENAL, LIPID #### [facility] [address] [address] [address] Mary Kay Vaca PHOSPHORUSon 02-11-2023 Phosphate [Mass/Vol] 3.1 mg/dL Normal 2.6-4.7 [facility] Comment on above: Performed By: #### R ENDIMAS, LIPID #### [facility] [address] [address] [address] Mary Kay Vaca PROF 14(COMP METB)on 023 Albumin [Mass/Vol] 3.7 g/dL Normal 3.4-5.0 [facility] Comment on above: Performed By: #### R ENDIMAS, LIPID #### [facility] [address] [address] [address] Mary Kay Vaca Albumin/Globulin [Mass ratio] 0.8 {ratio} Normal [facility] Comment on above: Performed By: #### R RERE, LIPID #### [facility] [address] [place] [address] Dr. Mary Kay Vaca ALP [Catalytic activity/Vol] 178 U/L Critically high 46-116 [facility] Comment on above: Performed By: #### R RERE, LIPID #### [facility] [address] [place] [address] Dr. Mary Kay Vaca ALT [Catalytic activity/Vol] 72 U/L Critically high 16-63 [facility] Comment on above: Performed By: #### R RERE, LIPID #### [facility] [address] [address] [address] Mary Kay Vaca Anion gap [Moles/Vol] 16.6 mmol/L Normal [facility] Comment on above: Performed By: #### R ENDIMAS, LIPID #### [facility] [address] [address] [address] Mary Kay Vaca AST [Catalytic activity/Vol] 53 U/L Critically high 15-37 [facility] Comment on above: Performed By: #### R ENAL, LIPID #### [facility] [address] [address] [address] Mary Kay Vaca Bilirubin [Mass/Vol] 0.5 mg/dL Normal 0.2-1.0 [facility] Comment on above: Performed By: #### R ENDIMAS, LIPID #### [facility] [address] [address] [address] Mary Kay Vaca Calcium [Mass/Vol] 9.4 mg/dL Normal 8.5-10.1 [facility] Comment on above: Performed By: #### R ENAL, LIPID #### [facility] [address] [address] [address] Mary Kay Vaca Chloride [Moles/Vol] 102 mmol/L Normal 98-107 [facility] Comment on above: Performed By: #### R ENAL, LIPID #### [facility] [address] [address] [address] Mary Kay Vaca CO2 [Moles/Vol] 26.6 mmol/L Normal 21.0-32.0 [facility] Comment on above: Performed By: #### R ENAL, LIPID #### [facility] [address] [place] [address] Dr. Mary Kay Vaca Creatinine [Mass/Vol] 1.72 mg/dL Critically high 0.70-1.30 [facility] Comment on above: Performed By: #### R ENAL, LIPID #### [facility] [address] [place] [address] Dr. Mary Kay Vaca EGFR-AF SURINAMESE 46 mL/min/1.73m2 Critically low >=60 [facility] Comment on above: Performed By: #### R ENAL, LIPID #### [facility] [address] [place] [address] Dr. Mary Kay Vaca EGFR-NON AF SURINAMESE 38 mL/min/1.73m2 Critically low >=60 [facility] Comment on above: Performed By: #### R ENAL, LIPID #### [facility] [address] [address] [address] Mary Kay Vaca Globulin (S) [Mass/Vol] 4.9 g/dL Normal [facility] Comment on above: Performed By: #### R ENAL, LIPID #### [facility] [address] [address] [address] Mary Kay Vaca Glucose [Mass/Vol] 205 mg/dL Critically high 74-106 T [facility] [place] Comment on above: Performed By: #### R ENAL, LIPID #### [facility] [address] [address] [address] Mary Kay Vaca Potassium [Moles/Vol] 4.2 mmol/L Normal 3.5-5.1 [facility] Comment on above: Performed By: #### R ENAL, LIPID #### [facility] [address] [address] [address] Mary Kay Vaca Protein [Mass/Vol] 8.6 g/dL Critically high 6.4-8.2 T [facility] [place] Comment on above: Performed By: #### R ENAL, LIPID #### [facility] [address] [address] [address] Mary Kay Vaca Sodium [Moles/Vol] 141 mmol/L Normal 136-145 [facility] Comment on above: Performed By: #### R ENAL, LIPID #### [facility] [address] [address] [address] Mary Kay Vaca Urea nitrogen [Mass/Vol] 36.0 mg/dL Critically high 7.0-18.0 [facility] Comment on above: Performed By: #### R ENAL, LIPID #### [facility] [address] [place] [address] Dr. Mary Kay Vaca Urea nitrogen/Creatinine [Mass ratio] 20.9 mg/mg Normal [facility] Comment on above: Performed By: #### R ENAL, LIPID #### [facility] [address] [place] [address] Dr. Mary Kay Vaca UA RANDOMon 02-11-2023 Bilirubin Ql (U) Negative Normal NEGATIVE [facility] Comment on above: Performed By: #### U A #### [facility] [address] [place] [address] Dr. Mary Kay Vaca Clarity (U) CLEAR Normal CLEAR [facility] Comment on above: Performed By: #### U A #### [facility] [address] [place] [address] Dr. Mary Kay Vaca Color (U) LT. YELLOW Normal YELLOW [facility] Comment on above: Performed By: #### U A #### [facility] [address] [address] [address] Mary Kay Vaca Glucose Ql (U) Negative Normal NEGATIVE [facility] Comment on above: Performed By: #### U A #### [facility] [address] [place] [address] Dr. Mary Kay Vaca Hemoglobin Ql (U) Negative Normal NEGATIVE [facility] Comment on above: Performed By: #### U A #### [facility] [address] [place] [address] Dr. Mary Kay Vaca Ketones Ql (U) Negative Normal NEGATIVE [facility] Comment on above: Performed By: #### U A #### [facility] [address] [place] [address] Dr. Mary Kay Vaca LEUKOCYTES Negative Normal NEGATIVE [facility] Comment on above: Performed By: #### U A #### [facility] [address] [place] [address] Dr. Mary Kay Vaca Nitrite Ql (U) Negative Normal NEGATIVE [facility] Comment on above: Performed By: #### U A #### [facility] [address] [place] [address] Dr. Mary Kay Vaca pH (U) 6.0 [pH] Normal 5-9 [facility] Comment on above: Performed By: #### U A #### [facility] [address] [place] [address] Dr. Mary Kay Vaca SPEC GRAVITY 1.010 Normal 1.005-<=1.[address] [facility] Comment on above: Performed By: #### U A #### [facility] [address] [place] [address] Dr. Mary Kay Vaca UA PROTEIN Negative Normal NEGATIVE/ TRACE [facility] Comment on above: Performed By: #### U A #### [facility] [address] [place] [address] Dr. Mary Kay Vaca Urobilinogen Qn (U) 0.2 {Ric'U}/dL Normal 0.2 - 1. 0 [facility] Comment on above: Performed By: #### U A #### [facility] [address] [address] [address] Mary Kay Vaca URIC ACID SERUMon 02-11-2023 Urate [Mass/Vol] 5.7 mg/dL Normal 3.5-7.2 [facility] Comment on above: Performed By: #### R ENAL, LIPID #### [facility] [address] [place] [address] Dr. Mary Kay Vaca URINE T PROTEIN CREAT RATIOo n 02-11-2023 UR TOTAL PROTEIN <6.0 Normal <=12.0 [facility] Comment on above: Performed By: #### B BRADLY, BNP #### [facility] [address] [place] [address] Dr. Mary Kay Vaca URINE CREAT <13.00 Critically low 20.00-300.00 [facility] Comment on above: Performed By: #### B BRADLY, BNP #### [facility] [address] [place] [address] Dr. Mary Kay Vaca VITAMIN D 25 OHon 02-11-2023 VIT D 25-OH 35.9 ng/mL Normal [facility] Comment on above: Performed By: #### B BRADLY, BNP #### [facility] [address] [place] [address] Dr. Mary Kay Vaca VIT D RANGES SEE BELOW Normal [facility] Comment on above: Result Comment: <20 ng/mL Vit D deficient 20 - <30 ng/mL Vit D insufficient 30 - 100 ng/mL Vit D sufficient >100 ng/mL Potential Toxicity Performed By: #### B BRADLY, BNP #### [facility] [address] [place] [address] Dr. Mary Kay Vaca C-PEPTIDE, SERUMon C-Peptide, Serum 9.0 ng/mL Critically high 1.1-4.4 [facility] Comment on above: Result Comment: C-Pe ptide reference interval is for fasting patients. Performed By: #### B BRADLY, BNP #### [facility] [address] [place] [address] Dr. Mary Kay Vaca LIPID PROFILEon 12-23-2022 CHOL-HDL RATIO NORM SEE BELOW Normal [facility] Comment on above: Result Comment: 3.3 - 4.4 LOW RISK 4.4 - 7.1 AVERAGE RISK 7.1 - 11.0 MODERATE RISK >11.0 HIGH RISK Performed By: #### R ENDIMAS, LIPID #### [facility] [address] [address] [address] Mary Kay Vaca Cholesterol [Mass/Vol] 174 mg/dL Normal <=200 [facility] Comment on above: Performed By: #### R ENDIMAS, LIPID #### [facility] [address] [address] [address] Mary Kay Vaca Cholesterol in HDL [Mass/Vol] 61 mg/dL Critically high 40-60 [facility] Comment on above: Performed By: #### R ENDIMAS, LIPID #### [facility] [address] [address] [address] Mary Kay Vaca Cholesterol in LDL [Mass/Vol] 87.0 mg/dL Normal [facility] Comment on above: Performed By: #### R ENDIMAS, LIPID #### [facility] [address] [address] [address] Mary Kay Vaca Cholesterol.total/Ch olesterol in HDL [Mass ratio] 2.9 {ratio} Normal [facility] Comment on above: Performed By: #### R ENDIMAS, LIPID #### [facility] [address] [place] [address] Dr. Mary Kay Vaca HDL NORMAL > or = 60 mg/dl - LO W CARDIOVASCULAR RISK <40 mg/dl - HIGH CARDIOVASCULAR RISK Normal [facility] Comment on above: Performed By: #### R ENDIMAS, LIPID #### [facility] [address] [place] [address] Dr. Mary Kay Vaca LDL CALC NORMAL SEE BELOW Normal [facility] Comment on above: Result Comment: <100 mg/dl OPTIMAL 100 - 129 mg/dl NEAR OR ABOVE OPTIMAL 130 - 159 mg/dl BORDERLINE HIGH 160 - 189 mg/dl HIGH >190 mg/dl VERY HIGH Performed By: #### R ENDIMAS, LIPID #### [facility] [address] [address] [address] Mary Kay Vaca Triglyceride [Mass/Vol] 130 mg/dL Normal <=150 [facility] Comment on above: Performed By: #### R ENAL, LIPID #### [facility] [address] [address] [address] Mary Kay Vaca VLDL CALC 26.0 mg/dL Normal [facility] Comment on above: Performed By: #### R ENAL, LIPID #### [facility] [address] [place] [address] Dr. Mary Kay Vaca MICROALB CREAT RATIO RANDOMo n 12-23-2022 mALB 2.2 mg/L Normal <=30.0 [facility] Comment on above: Performed By: #### B MP, BNP #### [facility] [address] [place] [address] Dr. Mary Kay Vaca MALB CR RATIO RANGE SEE BELOW Normal [facility] Comment on above: Result Comment: NO M ICROALBUMINURIA 0-29 MG/G CLINICAL MICROALBUMINURIA 30-300 MG/G MACROALBUMINURIA >300 MG/G Performed By: #### B MP, BNP #### [facility] [address] [place] [address] Dr. Mary Kay Vaca URINE CREAT <13.00 Critically low 20.00-300.00 [facility] Comment on above: Performed By: #### B MP, BNP #### [facility] [address] [place] [address] Dr. Mary Kay Vaca RENAL FUNCTION PANELon 12-23 Albumin [Mass/Vol] 3.7 g/dL Normal 3.4-5.0 [facility] Comment on above: Performed By: #### R ENAL, LIPID #### [facility] [address] [place] [address] Dr. Mary Kay Vaca Calcium [Mass/Vol] 9.4 mg/dL Normal 8.5-10.1 [facility] Comment on above: Performed By: #### R ENAL, LIPID #### [facility] [address] [place] [address] Dr. Mary Kay Vaca Chloride [Moles/Vol] 107 mmol/L Normal 98-107 [facility] Comment on above: Performed By: #### R ENAL, LIPID #### [facility] [address] [address] [address] Mary Kay Vaca CO2 [Moles/Vol] 27.0 mmol/L Normal 21.0-32.0 [facility] Comment on above: Performed By: #### R ENAL, LIPID #### [facility] [address] [address] [address] Mary Kay Vaca Creatinine [Mass/Vol] 1.46 mg/dL Critically high 0.70-1.30 [facility] Comment on above: Performed By: #### R ENAL, LIPID #### [facility] [address] [address] [address] Mary Kay Vaca EGFR-AF SURINAMESE 55 mL/min/1.73m2 Critically low >=60 [facility] Comment on above: Performed By: #### R ENAL, LIPID #### [facility] [address] [address] [address] Mary aKy Vaca EGFR-NON AF SURINAMESE 46 mL/min/1.73m2 Critically low >=60 [facility] Comment on above: Performed By: #### R ENAL, LIPID #### [facility] [address] [address] [address] Mary Kay Vaca Glucose [Mass/Vol] 163 mg/dL Critically high 74-106 [facility] Comment on above: Performed By: #### R ENAL, LIPID #### [facility] [address] [address] [address] Mary Kay Vaca Phosphate [Mass/Vol] 2.6 mg/dL Normal 2.6-4.7 [facility] Comment on above: Performed By: #### R ENAL, LIPID #### [facility] [address] [address] [address] Mary Kay Vaca Potassium [Moles/Vol] 4.0 mmol/L Normal 3.5-5.1 [facility] Comment on above: Performed By: #### R ENAL, LIPID #### [facility] [address] [address] [address] Mary Kay aVca Sodium [Moles/Vol] 145 mmol/L Normal 136-145 [facility] Comment on above: Performed By: #### R ENAL, LIPID #### [facility] [address] [address] [address] Mary Kay Vaca Urea nitrogen [Mass/Vol] 32.0 mg/dL Critically high 7.0-18.0 [facility] Comment on above: Performed By: #### R ENAL, LIPID #### [facility] [address] [place] [address] Dr. Mary Kay Vaca MAGNESIUMon 11-11-2022 Magnesium [Mass/Vol] 1.4 mg/dL Critically low 1.8-2.4 [facility] Comment on above: Performed By: #### R ENDIMAS, LIPID #### [facility] [address] [place] [address] Dr. Mary Kay Vaca PROF CHEM 8 (BAS METB)on Anion gap [Moles/Vol] 13.7 mmol/L Normal [facility] Comment on above: Performed By: #### R ENDIMAS, LIPID #### [facility] [address] [place] [address] Dr. Mary Kay Vaca Calcium [Mass/Vol] 9.8 mg/dL Normal 8.5-10.1 [facility] Comment on above: Performed By: #### R ENDIMAS, LIPID #### [facility] [address] [place] [address] Dr. Mary Kay Vaca Chloride [Moles/Vol] 105 mmol/L Normal 98-107 [facility] Comment on above: Performed By: #### R ENAL, LIPID #### [facility] [address] [place] [address] Dr. Mary Kay Vaca CO2 [Moles/Vol] 27.2 mmol/L Normal 21.0-32.0 [facility] Comment on above: Performed By: #### R ENAL, LIPID #### [facility] [address] [place] [address] Dr. Mary Kay Vaca Creatinine [Mass/Vol] 1.45 mg/dL Critically high 0.70-1.30 [facility] Comment on above: Performed By: #### R ENAL, LIPID #### [facility] [address] [address] [address] Mary Kay Vaca EGFR-AF SURINAMESE 56 mL/min/1.73m2 Critically low >=60 [facility] Comment on above: Performed By: #### R ENAL, LIPID #### [facility] [address] [address] [address] Mary Kay Vaca EGFR-NON AF SURINAMESE 46 mL/min/1.73m2 Critically low >=60 [facility] Comment on above: Performed By: #### R ENAL, LIPID #### [facility] [address] [address] [address] Mary Kay Vaca Glucose [Mass/Vol] 234 mg/dL Critically high 74-106 [facility] Comment on above: Performed By: #### R ENAL, LIPID #### [facility] [address] [address] [address] Mary Kay Vaca Potassium [Moles/Vol] 3.9 mmol/L Normal 3.5-5.1 [facility] Comment on above: Performed By: #### R ENAL, LIPID #### [facility] [address] [address] [address] Mary Kay Vaca Sodium [Moles/Vol] 142 mmol/L Normal 136-145 [facility] Comment on above: Performed By: #### R ENAL, LIPID #### [facility] [address] [address] [address] Mary Kay Vaca Urea nitrogen [Mass/Vol] 38.0 mg/dL Critically high 7.0-18.0 [facility] Comment on above: Performed By: #### R ENAL, LIPID #### [facility] [address] [address] [address] Mary Kay Vaca Urea nitrogen/Creatinine [Mass ratio] 26.2 mg/mg Normal [facility] Comment on above: Performed By: #### R ENAL, LIPID #### [facility] [address] [address] [address] Mary Kay Vaca PTH INTACTon 09-18-2022 PTH, Intact 39 pg/mL Normal 15-65 [facility] Comment on above: Performed By: #### R ENAL, LIPID #### [facility] [address] [place] [address] Dr. Mary Kay Vaca FERRITINon 09-17-2022 Ferritin [Mass/Vol] 703.0 ng/mL Critically high 26.0-388.0 [facility] Comment on above: Performed By: #### B MP, BNP #### [facility] [address] [place] [address] Dr. Mary Kay Vaca HEMOGRAM AND PLATELon 2022 Hematocrit (Bld) [Volume fraction] 37.2 % Critically low 42.0-54.0 [facility] Comment on above: Performed By: #### R ENAL, LIPID #### [facility] [address] [place] [address] Dr. Mary Kay Vaca Hemoglobin (Bld) [Mass/Vol] 12.6 g/dL Critically low 14.0-18.0 [facility] Comment on above: Performed By: #### R ENAL, LIPID #### [facility] [address] [place] [address] Dr. Mary Kay Vaca MCH (RBC) [Entitic mass] 32.7 pg Normal 25.9-34.0 [facility] Comment on above: Performed By: #### R ENAL, LIPID #### [facility] [address] [place] [address] Dr. Mary Kay Vaca MCHC (RBC) [Mass/Vol] 33.9 g/dL Normal 29.9-35.2 [facility] Comment on above: Performed By: #### R ENAL, LIPID #### [facility] [address] [place] [address] Dr. Mary Kay Vaca MCV (RBC) [Entitic vol] 96.6 fL Critically high 80.0-94.0 [facility] Comment on above: Performed By: #### R ENAL, LIPID #### [facility] [address] [place] [address] Dr. Mary Kay Vaca PLT 172 103/ul Normal 150-450 [facility] Comment on above: Performed By: #### R ENAL, LIPID #### [facility] [address] [address] [address] Mary Kay Vaca RBC 3.85 106/ul Critically low 4.70-6.[address] [facility] Comment on above: Performed By: #### R ENAL, LIPID #### [facility] [address] [address] [address] Mary Kay Vaca WBC 6.8 103/ul Normal 4.0-11.0 [facility] Comment on above: Performed By: #### R ENAL, LIPID #### [facility] [address] [address] [address] Mary Kay Vaca IRON AND TIBCon 09-17-2022 % SATURATION 38.9 % Normal [facility] Comment on above: Performed By: #### B MP, BNP #### [facility] [address] [place] [address] Dr. Mary Kay Vaca Iron [Mass/Vol] 121.0 ug/dL Normal 65.0-175.0 [facility] Comment on above: Performed By: #### B MP, BNP #### [facility] [address] [place] [address] Dr. Mary Kay Vaca TIBC DIRECT 311.0 ug/dL Normal 250.0-450.0 [facility] Comment on above: Performed By: #### B MP, BNP #### [facility] [address] [place] [address] Dr. Mary Kay Vaca MAGNESIUMon 09-17-2022 Magnesium [Mass/Vol] 1.6 mg/dL Critically low 1.8-2.4 [facility] Comment on above: Performed By: #### C MP, MG, URIC #### [facility] [address] [address] [address] Mary Kay Vaca PROF 14(COMP METB)on 023 Albumin [Mass/Vol] 4.0 g/dL Normal 3.4-5.0 [facility] Comment on above: Performed By: #### C MP, MG, URIC #### [facility] [address] [place] [address] Dr. Mary Kay Vaca Albumin/Globulin [Mass ratio] 0.9 {ratio} Normal [facility] Comment on above: Performed By: #### C MP, MG, URIC #### [facility] [address] [place] [address] Dr. Mary Kay Vaca ALP [Catalytic activity/Vol] 164 U/L Critically high 46-116 [facility] Comment on above: Performed By: #### C MP, MG, URIC #### [facility] [address] [address] [address] Mary Kay Vaca ALT [Catalytic activity/Vol] 82 U/L Critically high 16-63 [facility] Comment on above: Performed By: #### C MP, MG, URIC #### [facility] [address] [place] [address] Dr. Mary Kay Vaca Anion gap [Moles/Vol] 12.7 mmol/L Normal [facility] Comment on above: Performed By: #### C MP, MG, URIC #### [facility] [address] [place] [address] Dr. Mary Kay Vaca AST [Catalytic activity/Vol] 61 U/L Critically high 15-37 [facility] Comment on above: Performed By: #### C MP, MG, URIC #### [facility] [address] [place] [address] Dr. Mary Kay Vaca Bilirubin [Mass/Vol] 0.5 mg/dL Normal 0.2-1.0 [facility] Comment on above: Performed By: #### C MP, MG, URIC #### [facility] [address] [place] [address] Dr. Mary Kay Vaca Calcium [Mass/Vol] 9.7 mg/dL Normal 8.5-10.1 [facility] Comment on above: Performed By: #### C MP, MG, URIC #### [facility] [address] [place] [address] Dr. Mary Kay Vaca Chloride [Moles/Vol] 100 mmol/L Normal 98-107 [facility] Comment on above: Performed By: #### C MP, MG, URIC #### [facility] [address] [place] [address] Dr. Mary Kay Vaca CO2 [Moles/Vol] 30.4 mmol/L Normal 21.0-32.0 [facility] Comment on above: Performed By: #### C MP, MG, URIC #### [facility] [address] [address] [address] Mary Kay Vaca Creatinine [Mass/Vol] 1.30 mg/dL Normal 0.70-1.30 [facility] Comment on above: Performed By: #### C MP, MG, URIC #### [facility] [address] [address] [address] Mary Kay Vaca EGFR-AF SURINAMESE >60 Normal >=60 [facility] Comment on above: Performed By: #### C MP, MG, URIC #### [facility] [address] [place] [address] Dr. Mary Kay Vaca EGFR-NON AF SURINAMESE 52 mL/min/1.73m2 Critically low >=60 [facility] Comment on above: Performed By: #### C MP, MG, URIC #### [facility] [address] [place] [address] Dr. Mary Kay Vaca Globulin (S) [Mass/Vol] 4.7 g/dL Normal [facility] Comment on above: Performed By: #### C MP, MG, URIC #### [facility] [address] [address] [address] Mary Kay Vaca Glucose [Mass/Vol] 193 mg/dL Critically high 74-106 [facility] Comment on above: Performed By: #### C MP, MG, URIC #### [facility] [address] [place] [address] Dr. Mary Kay Vaca Potassium [Moles/Vol] 4.1 mmol/L Normal 3.5-5.1 [facility] Comment on above: Performed By: #### C MP, MG, URIC #### [facility] [address] [address] [address] Mary Kay Vaca Protein [Mass/Vol] 8.7 g/dL Critically high 6.4-8.2 [facility] Comment on above: Performed By: #### C MP, MG, URIC #### [facility] [address] [place] [address] Dr. Mary Kay Vaca Sodium [Moles/Vol] 139 mmol/L Normal 136-145 [facility] Comment on above: Performed By: #### C MP, MG, URIC #### [facility] [address] [place] [address] Dr. Mary Kay Vaca Urea nitrogen [Mass/Vol] 33.0 mg/dL Critically high 7.0-18.0 [facility] Comment on above: Performed By: #### C MP, MG, URIC #### [facility] [address] [place] [address] Dr. Mary Kay Vaca Urea nitrogen/Creatinine [Mass ratio] 25.4 mg/mg Normal [facility] Comment on above: Performed By: #### C MP, MG, URIC #### [facility] [address] [place] [address] Dr. Mary Kay Vaac UA RANDOMon 09-17-2022 Bilirubin Ql (U) Negative Normal NEGATIVE [facility] Comment on above: Performed By: #### B MP, BNP #### [facility] [address] [place] [address] Dr. Mary Kay Vaca Clarity (U) CLEAR Normal CLEAR [facility] Comment on above: Performed By: #### B MP, BNP #### [facility] [address] [place] [address] Dr. Mary Kay Vaca Color (U) LT. YELLOW Normal YELLOW [facility] Comment on above: Performed By: #### B MP, BNP #### [facility] [address] [place] [address] Dr. Mary Kay Vaca Glucose Ql (U) 100 mg/dl Abnormal NEGATIVE [facility] Comment on above: Performed By: #### B MP, BNP #### [facility] [address] [place] [address] Dr. Mary Kay Vaca Hemoglobin Ql (U) TRACE-LYSED Abnormal NEGATIVE [facility] Comment on above: Performed By: #### B MP, BNP #### [facility] [address] [place] [address] Dr. Mary Kay Vaca Ketones Ql (U) Negative Normal NEGATIVE [facility] Comment on above: Performed By: #### B MP, BNP #### [facility] [address] [place] [address] Dr. Mary Kay Vaca LEUKOCYTES Negative Normal NEGATIVE [facility] Comment on above: Performed By: #### B MP, BNP #### [facility] [address] [address] [address] Mary Kay Vaca Nitrite Ql (U) Negative Normal NEGATIVE [facility] Comment on above: Performed By: #### B MP, BNP #### [facility] [address] [place] [address] Dr. Mary Kay Vaca pH (U) 7.0 [pH] Normal 5-9 [facility] Comment on above: Performed By: #### B MP, BNP #### [facility] [address] [place] [address] Dr. Mary Kay Vaca SPEC GRAVITY 1.010 Normal 1.005-<=1.025 [facility] Comment on above: Performed By: #### B MP, BNP #### [facility] [address] [place] [address] Dr. Mary Kay Vaca UA PROTEIN Negative Normal NEGATIVE/ TRACE [facility] Comment on above: Performed By: #### B MP, BNP #### [facility] [address] [place] [address] Dr. Mary Kay Vaca Urobilinogen Qn (U) 0.2 {Ric'U}/dL Normal 0.2 - 1. 0 [facility] Comment on above: Performed By: #### B MP, BNP #### [facility] [address] [place] [address] Dr. Mary Kay Vaca URIC ACID SERUMon 09-17-2022 Urate [Mass/Vol] 4.8 mg/dL Normal 3.5-7.2 [facility] Comment on above: Performed By: #### C MP, MG, URIC #### [facility] [address] [place] [address] Dr. Mary Kay Vaca URINE T PROTEIN CREAT RATIOo n 09-17-2022 Protein (U) [Mass/Vol] 19.9 mg/dL Critically high <=12.0 [facility] Comment on above: Performed By: #### R ENAL, LIPID #### [facility] [address] [place] [address] Dr. Mary Kay Vaca UR PROT CREAT RAT 1.31 Normal [facility] Comment on above: Performed By: #### R ENAL, LIPID #### [facility] [address] [place] [address] Dr. Mary Kay Vaca URINE CREAT 15.14 mg/dL Critically low 20.00-300.00 [facility] Comment on above: Performed By: #### R ENAL, LIPID #### [facility] [address] [place] [address] Dr. Mary Kay Vaca VIT B12 AND FOLATEon 023 Cobalamin (Vitamin B12) [Mass/Vol] 1181.0 pg/mL Critically high 193.0-986.0 [facility] Comment on above: Performed By: #### B MP, BNP #### [facility] [address] [place] [address] Dr. Mary Kay Vaca FOLATE 9.90 ng/mL Normal 8.60-58.90 [facility] Comment on above: Performed By: #### B MP, BNP #### [facility] [address] [place] [address] Dr. Mary Kay Vaca VITAMIN D 25 OHon 09-17-2022 VIT D 25-OH 41.7 ng/mL Normal [facility] Comment on above: Performed By: #### C MP, MG, URIC #### [facility] [address] [place] [address] Dr. Mary Kay Vaca VIT D RANGES SEE BELOW Normal [facility] Comment on above: Result Comment: <20 ng/mL Vit D deficient 20 - <30 ng/mL Vit D insufficient 30 - 100 ng/mL Vit D sufficient >100 ng/mL Potential Toxicity Performed By: #### C MP, MG, URIC #### [facility] [address] [place] [address] Dr. Mary Kay Vaca VC CONSULT FOLLOWUPon 2021 VC CONSULT FOLLOWUP Patient: CARLO SUAREZ Romero Exam Date: 07/30/2022 : 1935 Gender:M Ordering : DR ALVA MAI M.D. Admission #: [id number] Family : Order #: [id number] CLICK HERE TO VIEW EXAM RADIOLOGY REPORT [...] Mai MD on 07/30/2022 at 14:41 Normal [facility] VC EXT VENOUS LT LIMITEDon 1 09-29-2021 VC EXT VENOUS LT LIMITED Patient: SUAREZCARLO HEARN Romero Exam Date: 07/30/2022 : 1935 Gender:M Ordering : DR ALVA MAI M.D. Admission #: [id number] Family : Order #: [id number] CLICK HERE TO VIEW EXAM RADIOLOGY REPORT [...] Mai MD on 07/30/2022 at 14:26 Normal [facility] VC INJ FOAM SCLERO W US MLTI on 07-23-2022 VC INJ FOAM SCLERO W US MLTI Patient: CARLO SUAREZ Exam Date: 07/23/2022 : 1935 Gender:M Ordering : DR ALVA MAI M.D. Admission #: [id number] Family : Order #: [id number] CLICK HERE TO VIEW EXAM RADIOLOGY REPORT [...] immediately (more content not included)... Normal [facility] VC CONSULT FOLLOWUPon 2021 VC CONSULT FOLLOWUP Patient: CARLO SUAREZ Exam Date: 07/09/2022 : 1935 Gender:M Ordering : DR ALVA MAI M.D. Admission #: [id number] Family : Order #: [id number] CLICK HERE TO VIEW EXAM RADIOLOGY REPORT [...] Mai MD on 07/09/2022 at 14:02 Normal [facility] VC VENOUS REFLUX LT LMTon VC VENOUS REFLUX LT LMT Patient: CARLO SUAREZEunice Exam Date: 07/09/2022 : 1935 Gender:M Ordering : DR ALVA MAI M.D. Admission #: [id number] Family : Order #: [id number] CLICK HERE TO VIEW EXAM RADIOLOGY REPORT [...] visualized in SSV. Compressibility: Normal Flow: Normal [employer] Developer: Dist/med calf 2.4mm with 0s reflux. Mid/med [...] Mai MD on 07/09/2022 at 13:38 Normal [facility] BNPon 04-08-2022 Natriuretic peptide B (Bld) [Mass/Vol] 1185.0 pg/mL Normal <=1,800.0 [facility] Comment on above: Performed By: #### B MP, BNP #### [facility] [address] [place] [address] Dr. Mary Kay Vaca PROF CHEM 8 (BAS METB)on Anion gap [Moles/Vol] 10.9 mmol/L Normal [facility] Comment on above: Performed By: #### B MP, BNP #### [facility] [address] [address] [address] Mary Kay Vaca Calcium [Mass/Vol] 8.8 mg/dL Normal 8.5-10.1 [facility] Comment on above: Performed By: #### B MP, BNP #### [facility] [address] [place] [address] Dr. Mary Kay Vaca Chloride [Moles/Vol] 107 mmol/L Normal 98-107 [facility] Comment on above: Performed By: #### B MP, BNP #### [facility] [address] [address] [address] Mary Kay Vaca CO2 [Moles/Vol] 29.0 mmol/L Normal 21.0-32.0 [facility] Comment on above: Performed By: #### B MP, BNP #### [facility] [address] [address] [address] Mary Kay Vaca Creatinine [Mass/Vol] 1.31 mg/dL Critically high 0.70-1.30 [facility] Comment on above: Performed By: #### B MP, BNP #### [facility] [address] [address] [address] Mary Kay Vaca EGFR-AF SURINAMESE >60 Normal >=60 [facility] Comment on above: Performed By: #### B MP, BNP #### [facility] [address] [address] [address] Mary Kay Vaca EGFR-NON AF SURINAMESE 52 mL/min/1.73m2 Critically low >=60 [facility] Comment on above: Performed By: #### B MP, BNP #### [facility] [address] [address] [address] Mary Kay Vaca Glucose [Mass/Vol] 121 mg/dL Critically high 74-106 T [facility] Comment on above: Performed By: #### B MP, BNP #### [facility] [address] [address] [address] Mary Kay Vaca Potassium [Moles/Vol] 3.9 mmol/L Normal 3.5-5.1 [facility] Comment on above: Performed By: #### B MP, BNP #### [facility] [address] [address] [address] Mary Kay Vaca Sodium [Moles/Vol] 143 mmol/L Normal 136-145 [facility] Comment on above: Performed By: #### B MP, BNP #### [facility] [address] [address] [address] Mary Kay Vaca Urea nitrogen [Mass/Vol] 29.0 mg/dL Critically high 7.0-18.0 [facility] Comment on above: Performed By: #### B MP, BNP #### [facility] [address] [address] [address] Mary Kay Vaca Urea nitrogen/Creatinine [Mass ratio] 22.1 mg/mg Normal [facility] Comment on above: Performed By: #### B MP, BNP #### [facility] [address] [address] [address] Mary Kay Vaca GLYCOHEMOGLOBIN A1Con 2021 ADA RECOMMENDATION SEE BELOW Normal [facility] Comment on above: Result Comment: ADA RECOMMENDED LIMIT 4.0 - 6.0 ADA THERAPEUTIC TARGET < 7.0 ACTION SUGGESTED > 7.0 Performed By: #### B MP, BNP #### [facility] [address] [place] [address] Dr. Mary Kay Vaca Glucose [Mass/Vol] 120 mg/dL Normal [facility] Comment on above: Performed By: #### B MP, BNP #### [facility] [address] [place] [address] Dr. Mary Kay Vaca HbA1c (Bld) [Mass fraction] 5.8 % Normal 4.5-6.2 [facility] Comment on above: Performed By: #### B MP, BNP #### [facility] [address] [place] [address] Dr. Mary Kay Vaca PTH INTACTon 03-27-2022 PTH, Intact 43 pg/mL Normal 15-65 [facility] Comment on above: Performed By: #### B MP, BNP #### [facility] [address] [place] [address] Dr. Mary Kay Vaca FERRITINon 03-25-2022 Ferritin [Mass/Vol] 30.0 ng/mL Normal 26.0-388.0 [facility] Comment on above: Performed By: #### F ERR, VITAD, FETIBC #### [facility] [address] [place] [address] Dr. Mary Kay Vaca HEMOGRAM AND PLATELon 2021 Hematocrit (Bld) [Volume fraction] 32.9 % Critically low 42.0-54.0 [facility] Comment on above: Performed By: #### B MP, BNP #### [facility] [address] [place] [address] Dr. Mary Kay Vaca Hemoglobin (Bld) [Mass/Vol] 9.9 g/dL Critically low 14.0-18.0 [facility] Comment on above: Performed By: #### B MP, BNP #### [facility] [address] [place] [address] Dr. Mary Kay Vaca MCH (RBC) [Entitic mass] 28.7 pg Normal 25.9-34.0 [facility] Comment on above: Performed By: #### B MP, BNP #### [facility] [address] [place] [address] Dr. Mary Kay Vaca MCHC (RBC) [Mass/Vol] 30.1 g/dL Normal 29.9-35.2 [facility] Comment on above: Performed By: #### B MP, BNP #### [facility] [address] [place] [address] Dr. Mary Kay Vaca MCV (RBC) [Entitic vol] 95.4 fL Critically high 80.0-94.0 [facility] Comment on above: Performed By: #### B MP, BNP #### [facility] [address] [place] [address] Dr. Mary Kay Vaca PLT 247 103/ul Normal 150-450 [facility] Comment on above: Performed By: #### B MP, BNP #### [facility] [address] [place] [address] Dr. Mary Kay Vaca RBC 3.45 106/ul Critically low 4.70-6.10 [facility] Comment on above: Performed By: #### B MP, BNP #### [facility] [address] [place] [address] Dr. Mary Kay Vaca WBC 6.9 103/ul Normal 4.0-11.0 [facility] Comment on above: Performed By: #### B MP, BNP #### [facility] [address] [place] [address] Dr. Mary Kay Vaca IRON AND TIBCon 03-25-2022 % SATURATION 12.4 % Normal [facility] Comment on above: Performed By: #### R ENAL, LIPID #### [facility] [address] [place] [address] Dr. Mary Kay Vaca Iron [Mass/Vol] 47.0 ug/dL Critically low 65.0-175.0 [facility] Comment on above: Performed By: #### R ENAL, LIPID #### [facility] [address] [place] [address] Dr. Mary Kay Vaca TIBC DIRECT 380.0 ug/dL Normal 250.0-450.0 [facility] Comment on above: Performed By: #### R ENDIMAS, LIPID #### [facility] [address] [address] [address] Mary Kay Vaca PROF 14(COMP METB)on 022 Albumin [Mass/Vol] 3.3 g/dL Critically low 3.4-5.0 [facility] Comment on above: Performed By: #### R ENDIMAS, LIPID #### [facility] [address] [place] [address] Dr. Mary Kay Vaca Albumin/Globulin [Mass ratio] 0.8 {ratio} Normal [facility] Comment on above: Performed By: #### R RERE, LIPID #### [facility] [address] [place] [address] Dr. Mary Kay Vaca ALP [Catalytic activity/Vol] 203 U/L Critically high 46-116 [facility] Comment on above: Performed By: #### R RERE, LIPID #### [facility] [address] [place] [address] Dr. Mary Kay Vaca ALT [Catalytic activity/Vol] 41 U/L Normal 16-63 [facility] Comment on above: Performed By: #### R RERE, LIPID #### [facility] [address] [place] [address] Dr. Mary Kay Vaca Anion gap [Moles/Vol] 13.4 mmol/L Normal [facility] Comment on above: Performed By: #### R ENDIMAS, LIPID #### [facility] [address] [place] [address] Dr. Mary Kay Vaca AST [Catalytic activity/Vol] 41 U/L Critically high 15-37 [facility] Comment on above: Performed By: #### R ENDIMAS, LIPID #### [facility] [address] [place] [address] Dr. Mary Kay Vaca Bilirubin [Mass/Vol] 0.4 mg/dL Normal 0.2-1.0 [facility] Comment on above: Performed By: #### R ENDIMAS, LIPID #### [facility] [address] [address] [address] Mary Kay Vaca Calcium [Mass/Vol] 9.0 mg/dL Normal 8.5-10.1 [facility] Comment on above: Performed By: #### R ENAL, LIPID #### [facility] [address] [place] [address] Dr. Mary Kay Vaca Chloride [Moles/Vol] 105 mmol/L Normal 98-107 [facility] Comment on above: Performed By: #### R ENAL, LIPID #### [facility] [address] [place] [address] Dr. Mary Kay Vaca CO2 [Moles/Vol] 24.9 mmol/L Normal 21.0-32.0 [facility] Comment on above: Performed By: #### R ENAL, LIPID #### [facility] [address] [place] [address] Dr. Mary Kay Vaca Creatinine [Mass/Vol] 0.97 mg/dL Normal 0.70-1.30 [facility] Comment on above: Performed By: #### R ENAL, LIPID #### [facility] [address] [place] [address] Dr. Mary Kay Vaca EGFR-AF SURINAMESE >60 Normal >=60 [facility] Comment on above: Performed By: #### R ENAL, LIPID #### [facility] [address] [place] [address] Dr. Mary Kay Vaca EGFR-NON AF SURINAMESE >60 Normal >=60 [facility] Comment on above: Performed By: #### R ENAL, LIPID #### [facility] [address] [place] [address] Dr. Mary Kay Vaca Globulin (S) [Mass/Vol] 4.1 g/dL Normal [facility] Comment on above: Performed By: #### R ENAL, LIPID #### [facility] [address] [place] [address] Dr. Mary Kay Vaca Glucose [Mass/Vol] 113 mg/dL Critically high 74-106 T [facility] Comment on above: Performed By: #### R ENAL, LIPID #### [facility] [address] [place], [place] [id number] Dr. Mary Kay Vaca Potassium [Moles/Vol] 4.3 mmol/L Normal 3.5-5.1 [facility] Comment on above: Performed By: #### R ENAL, LIPID #### [facility] [address] [place] [address] Dr. Mary Kay Vaca Protein [Mass/Vol] 7.4 g/dL Normal 6.4-8.2 [facility] Comment on above: Performed By: #### R ENAL, LIPID #### [facility] [address] [place] [address] Dr. Mary Kay Vaca Sodium [Moles/Vol] 139 mmol/L Normal 136-145 [facility] Comment on above: Performed By: #### R ENAL, LIPID #### [facility] [address] [place] [address] Dr. Mary Kay Vaca Urea nitrogen [Mass/Vol] 21.0 mg/dL Critically high 7.0-18.0 [facility] Comment on above: Performed By: #### R ENAL, LIPID #### [facility] [address] [place] [address] Dr. Mary Kay Vaca Urea nitrogen/Creatinine [Mass ratio] 21.6 mg/mg Normal [facility] Comment on above: Performed By: #### R ENAL, LIPID #### [facility] [address] [place] [address] Dr. Mary Kay Vaca UA RANDOMon 03-25-2022 Bilirubin Ql (U) Negative Normal NEGATIVE [facility] Comment on above: Performed By: #### B MP, BNP #### [facility] [address] [place] [address] Dr. Mary Kay Vaca Clarity (U) CLEAR Normal CLEAR [facility] Comment on above: Performed By: #### B MP, BNP #### [facility] [address] [place] [address] Dr. Mary Kay Vaca Color (U) LT. YELLOW Normal YELLOW [facility] Comment on above: Performed By: #### B MP, BNP #### [facility] [address] [place] [address] Dr. Mary Kay Vaca Glucose Ql (U) Negative Normal NEGATIVE [facility] Comment on above: Performed By: #### B MP, BNP #### [facility] [address] [place] [address] Dr. Mary Kay Vaca Hemoglobin Ql (U) Negative Normal NEGATIVE [facility] Comment on above: Performed By: #### B MP, BNP #### [facility] [address] [place] [address] Dr. Mary Kay Vaca Ketones Ql (U) Negative Normal NEGATIVE [facility] Comment on above: Performed By: #### B MP, BNP #### [facility] [address] [place] [address] Dr. Mary Kay Vaca LEUKOCYTES Negative Normal NEGATIVE [facility] Comment on above: Performed By: #### B MP, BNP #### [facility] [address] [place] [address] Dr. Mary Kay Vaca Nitrite Ql (U) Negative Normal NEGATIVE [facility] Comment on above: Performed By: #### B MP, BNP #### [facility] [address] [place] [address] Dr. Mary Kay Vaca pH (U) 6.5 [pH] Normal 5-9 [facility] Comment on above: Performed By: #### B MP, BNP #### [facility] [address] [place] [address] Dr. Mary Kay Vaca SPEC GRAVITY 1.010 Normal 1.005-<=1.025 [facility] Comment on above: Performed By: #### B MP, BNP #### [facility] [address] [place] [address] Dr. Mary Kay Vaca UA PROTEIN Negative Normal NEGATIVE/ TRACE [facility] Comment on above: Performed By: #### B MP, BNP #### [facility] [address] [place] [address] Dr. Mary Kay Vaca Urobilinogen Qn (U) 0.2 {Ric'U}/dL Normal 0.2 - 1. 0 [facility] Comment on above: Performed By: #### B MP, BNP #### [facility] [address] [place] [address] Dr. Mary Kay Vaca URIC ACID SERUMon 03-25-2022 Urate [Mass/Vol] 3.5 mg/dL Normal 3.5-7.2 [facility] Comment on above: Performed By: #### R ENAL, LIPID #### [facility] [address] [place] [address] Dr. Mary Kay Vaca URINE T PROTEIN CREAT RATIOo n 03-25-2022 Protein (U) [Mass/Vol] 21.4 mg/dL Critically high <=12.0 [facility] Comment on above: Performed By: #### B MP, BNP #### [facility] [address] [place] [address] Dr. Mary Kay Vaca UR PROT CREAT RAT 2.12 Normal [facility] Comment on above: Performed By: #### B MP, BNP #### [facility] [address] [place] [address] Dr. Mary Kay Vaca URINE CREAT 10.09 mg/dL Critically low 20.00-300.00 [facility] Comment on above: Performed By: #### B MP, BNP #### [facility] [address] [place] [address] Dr. Mary Kay Vaca VITAMIN D 25 OHon 03-25-2022 VIT D 25-OH 37.6 ng/mL Normal [facility] Comment on above: Performed By: #### F ERR, VITAD, FETIBC #### [facility] [address] [place] [address] Dr. Mary Kay Vaca VIT D RANGES SEE BELOW Normal [facility] Comment on above: Result Comment: <20 ng/mL Vit D deficient 20 - <30 ng/mL Vit D insufficient 30 - 100 ng/mL Vit D sufficient >100 ng/mL Potential Toxicity Performed By: #### F ERR, VITAD, FETIBC #### [facility] [address] [place] [address] Dr. Mary Kay Vaca VC CONSULT FOLLOWUPon 2021 VC CONSULT FOLLOWUP Patient: CARLO SUAREZ Romero Exam Date: 03/12/2022 : 1935 Gender:M Ordering : DR ALVA MAI M.D. Admission #: [id number] Family : Order #: [id number] CLICK HERE TO VIEW EXAM RADIOLOGY REPORT [...] Mai MD on 03/12/2022 at 15:34 Normal [facility] VC EXT VENOUS RT LIMITEDon 0 03-12-2022 VC EXT VENOUS RT LIMITED Patient: CARLO SUAREZEunice Exam Date: 03/12/2022 : 1935 Gender:M Ordering : DR ALVA MAI M.D. Admission #: [id number] Family : Order #: [id number] CLICK HERE TO VIEW EXAM RADIOLOGY REPORT [...] Corresponding to *Exam performed in accordance with [facility] practice guidelines- Peripheral venous ultrasound, December 09, 2009. 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 Dictated by: Alva Mai MD on 03/12/2022 at 15:16 Approved by: Alva Mai MD on 03/12/2022 at 15:19 Normal [facility] ECHOCARDIO M/2D COMPLETEon 0 03-08-2022 ECHOCARDIO M/2D COMPLETE Patient: CARLO SUAREZ Exam Date: 03/08/2022 : 1935 Gender:M Ordering : JERICA MUÑIZ Admission #: [id number] Family : Order #: [id number] CLICK HERE TO VIEW EXAM ECHOCARDIOGRAM REPORT [...] Area(A4C): 29.80 cm2 Left Atrium Systolic Volume(A2C): 33132 mm3 Left Atrium Systolic Volume(A4C): 207981 mm3 Mitral Valve MV E to A Ratio: 1.70 Deceleration [place]: 5630 mm/s2 Mitral Valve A-Wave Peak Velocity: 64.20 cm/s Mitral Valve E-Wave Peak Velocity: 108.00 cm/s Right Ventricle RV Internal Diastolic Dimension: 3.61 cm Aorta AO Root Diam: 3.00 cm Aortic Valve Peak Velocity (Antegrade Flow): 187.00 cm/s, 205.00 cm/s AoV Area (Peak Shaheen): 1.14 cm2 AoV Area (VTI): 1.22 cm2 Deceleration [place]: 2340 mm/s2 Pressure Half-Time: 518 ms Peak [...] Benny Franklin M.D. on 03/11/2022 at 12:38 Normal [facility] VC INJ FOAM SCLERO W US MLTI on 03-07-2022 VC INJ FOAM SCLERO W US MLTI Patient: CARLO SUAREZ Exam Date: 03/07/2022 : 1935 Gender:M Ordering : DR ALVA MAI M.D. Admission #: [id number] Family : Order #: [id number] CLICK HERE TO VIEW EXAM RADIOLOGY REPORT [...] with Varithena(r) 2. Intraoperative ultrasound guidance Physician: Hollis Cabrera M.D. Anesthesia: None. Indications for Procedure: [...] days. PERSONNEL: Rashard Jones R.N. Dictated by: Hollis Cabrera M.D. on 03/07/2022 at 15:53 Approved by: Hollis Cabrera M.D. on 03/07/2022 at 15:56 Normal [facility] VC CONSULT FOLLOWUPon 2021 VC CONSULT FOLLOWUP Patient: CARLO SUAREZ Exam Date: 03/01/2022 : 1935 Gender:M Ordering : DR ALVA MAI M.D. Admission #: [id number] Family : Order #: [id number] CLICK HERE TO VIEW EXAM RADIOLOGY REPORT [...] the physical exam and consultation Dictated by: Hollis Cabrera M.D. on 03/01/2022 at 14:41 Approved by: Hollis Cabrera M.D. on 03/01/2022 at 14:47 Normal [facility] VC EXT VENOUS RT LIMITEDon 0 03-01-2022 VC EXT VENOUS RT LIMITED Patient: CARLO SUAREZ Exam Date: 03/01/2022 : 1935 Gender:M Ordering : DR ALVA MAI M.D. Admission #: [id number] Family : Order #: [id number] CLICK HERE TO VIEW EXAM RADIOLOGY REPORT [...] of right great saphenous vein. Dictated by: Hollis Cabrera M.D. on 03/01/2022 at 14:38 Approved by: Hollis Cabrera M.D. on 03/01/2022 at 14:41 Normal [facility] Cardiovascular Lab Reporton 07-29-2020 Cardiovascular Lab Report [facility] Patient Name: Carlo Suarez [facility] D MR #: [id number] Department of Physician: John Peralta M.D. Division of Service Date: 07/28/2020 Cardiology Birthdate: 1935 Adult Cardiovascular Room #: [address] [place] [address] Cardiovascular Laboratory Report CLINICAL PRESENTATION: The patient [...] ultrasound guidance and micropuncture access technique, a 6-Jordanian sheath was placed in the right internal [...] 56%, AO sat 97%. Electronically Signed by: Elena Barnett M.D. 08/01/2020 03:20 P Elena Barnett M.D. Date Dict: 07/28/2020/04:48 P/Elena Barnett M.D. Date Trans: 07/29/2020 05:43 Isra/alphonso [id number] cc: Jose Brewer M.D. [address] [facility] [address] Jerica Muñiz, EXTR[employer] CASTING DIRECTOR [address] [facility] [address] [facility] [address] Normal [facility] *SARS-CoV-2 COVID-19on 07-27 [id number] Not Detected Normal Not Detected [facility] Comment on above: Order Comment: The A ptima SARS-CoV-2 assay is a nucleic acid amplification test intended for the qualitative detection of RNA from SARS-CoV-2 isolated and purified from nasopharyngeal ([employer]),oropharyngeal (OP), nasal swab, sputum, and bronchoalveolar lavage (BAL) specimens from patients with signs and symptoms of infection who are suspected of COVID-19. Results are for the identification of SARS-CoV-2 RNA. The SARS-CoV-2 RNA is generally detectable during the acute phase of infection. The Aptima SARS-CoV-2 Assay on the Refinder by [employer] and Refinder by [employer] Fusion system is intended for use by laboratory personnel specifically instructed and trained in the operation of the [place] and [employer] system. The Aptima SARS-CoV-2 assay is [...] information. Performed By: #### 3 [id number] #### [address] Ambulatory Clinical Summaryo n 05-23-2020 Ambulatory Clinical Summary {[id number] [facility] Vital Signs Date Time Vital Sign Value Performing Clinician Facility 10-30-2023 14:15-050 Body height 167.6 cm Jose Brewer MD Work Phone: [facility] 10-30-2023 14:15-050 Body mass index (BMI) [Ratio] 30.99 kg/m2 Jose Brewer MD Work Phone: [facility] 10-30-2023 14:15-050 Body temperature 96.3 [degF] Jose Brewer MD Work Phone: [facility] 10-30-2023 14:15-0500 Body weight 87.09 kg Jose Brewer MD Work Phone: [facility] 10-30-2023 14:15-0500 Diastolic blood pressure 60 mm[Hg] Jose Brewer MD Work Phone: [facility] 10-30-2023 14:15-0500 Heart rate 90 /min Jose Brewer MD Work Phone: [facility] 10-30-2023 14:15-0500 SaO2% (BldA) [Mass fraction] 96 % Jose Brewer MD Work Phone: [facility] 10-30-2023 14:15-0500 Systolic blood pressure 106 mm[Hg] Jose Brewer MD Work Phone: [facility] 07-10-2023 14:00-0400 Body height 167.64 cm [facility] Other [facility] Other 07-10-2023 14:00-0400 Body mass index (BMI) [Ratio] 30.18 kg/m2 Kaur [facility] Other [facility] Other 07-10-2023 14:00-0400 Body temperature 96.8 [degF] [facility] Other [facility] Other 07-10-2023 14:00-0400 Body weight 84.82 kg Kaur [facility] Other [facility] Other 07-10-2023 14:00-0400 Diastolic blood pressure 69 mm[Hg] [facility] Other [facility] Other 07-10-2023 14:00-0400 Respiratory rate 18 /min [facility] Other [facility] Other 07-10-2023 14:00-0400 SaO2% (BldA) [Mass fraction] 93 % [facility] Other [facility] Other 07-10-2023 14:00-0400 Systolic blood pressure 110 mm[Hg] Aziz Bakhous Other [facility] Other 03-07-2023 11:40-0400 Body height 167.64 cm Aziz Bakhous Other [facility] Other 03-07-2023 11:40-0400 Body mass index (BMI) [Ratio] 31.44 kg/m2 Aziz Bakhous Other [facility] Other 03-07-2023 11:40-0400 Body temperature 97 [degF] Aziz Bakhous Other [facility] Other 03-07-2023 11:40-0400 Body weight 88.36 kg Aziz Bakhous Other [facility] Other 03-07-2023 11:40-0400 Diastolic blood pressure 84 mm[Hg] Aziz Bakhous Other [facility] Other 03-07-2023 11:40-0400 Respiratory rate 18 /min Aziz Bakhous Other [facility] Other 03-07-2023 11:40-0400 SaO2% (BldA) [Mass fraction] 96 % Aziz Bakhous Other [facility] Other 03-07-2023 11:40-0400 Systolic blood pressure 154 mm[Hg] Aziz Bakhous Other [facility] Other 09-25-2022 14:40-0500 Body height 167.64 cm Aziz Bakhous Other [facility] Other 09-25-2022 14:40-0500 Body mass index (BMI) [Ratio] 29.05 kg/m2 Kaur Gonsal[facility] Other [facility] Other 09-25-2022 14:40-0500 Body temperature 96.7 [degF] Kaur Ildafamilia Other [facility] Other 09-25-2022 14:40-0500 Body weight 81.65 kg Kaur Gonsalesfamilia Other [facility] Other 09-25-2022 14:40-0500 Diastolic blood pressure 74 mm[Hg] Reganshan Ildafamilia Other [facility] Other 09-25-2022 14:40-0500 Respiratory rate 18 /min Kaur Robins Other [facility] Other 09-25-2022 14:40-0500 SaO2% (BldA) [Mass fraction] 96 % Kaur Robins Other [facility] Other 09-25-2022 14:40-0500 Systolic blood pressure 108 mm[Hg] Kaur Ildafamilia Other [facility] [employer] Other 04-24-2022 14:32-0400 Body temperature 97.7 [degF] MD Kaur Robins Work Phone: [facility] 04-24-2022 14:32-0400 Diastolic blood pressure 61 mm[Hg] MD Kaur Robins Work Phone: [facility] 04-24-2022 14:32-0400 Heart rate 66 /min MD Kaur Robins Work Phone: [facility] 04-24-2022 14:32-0400 Systolic blood pressure 137 mm[Hg] MD Kaur Robins Work Phone: [facility] 04-24-2022 13:20-0400 Respiratory rate 16 /min MD Kaur Robins Work Phone: [facility] 04-24-2022 13:20-0400 SaO2% (BldA) [Mass fraction] 97 % MD Kaur Robins Work Phone: [facility] 04-02-2022 12:40-0400 Body height 167.64 cm Kaur Robins Other [facility] Other 04-02-2022 12:40-0400 Body mass index (BMI) [Ratio] 28.08 kg/m2 Kaur Robins Other [facility] Other 04-02-2022 12:40-0400 Body temperature 96.6 [degF] Kaur Robins Other [facility] Other 04-02-2022 12:40-0400 Body weight 78.93 kg Kaur Robins Other [facility] Other 04-02-2022 12:40-0400 Diastolic blood pressure 77 mm[Hg] Kaur Robins Other [facility] Other 04-02-2022 12:40-0400 Respiratory rate 18 /min Kaur Robins Other [facility] Other 04-02-2022 12:40-0400 SaO2% (BldA) [Mass fraction] 96 % Kaur Robins Other [facility] Other 04-02-2022 12:40-0400 Systolic blood pressure 146 mm[Hg] Aziz Bakhous Other [facility] Other 01-22-2022 12:20-0400 Body height 167.64 cm Aziz Bakhous Other [facility] Other 01-22-2022 12:20-0400 Body mass index (BMI) [Ratio] 28.08 kg/m2 Aziz Bakhous Other [facility] Other 01-22-2022 12:20-0400 Body temperature 96.1 [degF] Aziz Bakhous Other [facility] Other 01-22-2022 12:20-0400 Body weight 78.93 kg Aziz Bakhous Other [facility] Other 01-22-2022 12:20-0400 Diastolic blood pressure 60 mm[Hg] Aziz Bakhous Other [facility] Other 01-22-2022 12:20-0400 Respiratory rate 20 /min Aziz Bakhous Other [facility] Other 01-22-2022 12:20-0400 SaO2% (BldA) [Mass fraction] 97 % Aziz Bakhous Other [facility] Other 01-22-2022 12:20-0400 Systolic blood pressure 104 mm[Hg] Aziz Bakhous Other [facility] Other Encounters Encounter Date Encounter Type Care Provider Facility Start: 03-15-2024 End: 03-15-2024 ambulatory SHAIKH ALISIA Not Available Start: 03-11-2024 End: 03-11-2024 ambulatory [facility] Start: 03-09-2024 End: 03-10-2024 Emergency department patient visit ZULAY GARCIA [place] Start: 03-09-2024 End: 03-09-2024 ambulatory [facility] Start: 02-29-2024 End: 03-01-2024 Emergency department patient visit NISHANT TROTTERDERICK [place] Start: 02-11-2024 Evaluation and manag ement of inpatient [facility] Start: 02-10-2024 End: 02-10-2024 ambulatory [facility] Start: 02-10-2024 Encounter for other preprocedural examination [facility] Start: 01-27-2024 End: 01-27-2024 Evaluation and management of inpatient [facility] Start: 01-27-2024 End: 01-27-2024 Evaluation and management of inpatient [facility] Start: 01-22-2024 End: 01-22-2024 ambulatory [facility] Start: 01-21-2024 End: 01-21-2024 Evaluation and management of inpatient [facility] Start: 01-19-2024 End: 01-19-2024 ambulatory [facility] Start: 01-08-2024 End: 01-08-2024 ambulatory [facility] Start: 12-25-2023 End: 12-25-2023 ambulatory [facility] Start: 12-18-2023 Chart abstracting Brisa dawn MD Work Phone: [facility] Start: 12-18-2023 End: 12-18-2023 ambulatory DAISY CHÁVEZ [place] Start: 11-03-2023 End: 11-03-2023 ambulatory [facility] Start: 10-30-2023 End: 10-30-2023 Office outpatient visit 25 minutes Jose Brewer MD Work Phone: [facility] Comment on above: 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, 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 ([facility]) (Primary Dx); Chronic heart failure with preserved ejection fraction (HFpEF) ([facility]); Benign essential hypertension ([facility]); Primary osteoarthritis of shoulders, bilateral; Gastroesophageal reflux disease without esophagitis; Skin candidiasis; PAD (peripheral artery disease) ([facility]) Start: 10-30-2023 End: 10-30-2023 ambulatory JOSE BREWER Not Available [facility] [employer] Jose Brewer MD Work Phone: [facility] Start: 10-30-2023 [facility] [employer] Jose Brewer MD Work Phone: [facility] Start: 08-04-2023 End: 08-04-2023 ambulatory Aziz Bakhous Other [facility] Other Start: 08-04-2023 Telephone encounter Aziz Bakhous [facility] Start: 07-10-2023 End: 07-10-2023 ambulatory Aziz Bakhous Other [facility] Other Start: 07-10-2023 Office outpatient vi sit 25 minutes Aziz Bakhous [facility] Start: 04-23-2023 End: 04-23-2023 ambulatory [facility] Start: 03-10-2023 End: 03-10-2023 ambulatory [facility] Start: 03-07-2023 End: 03-07-2023 ambulatory Aziz Bakhous Other [facility] Other Start: 03-07-2023 Office outpatient vi sit 25 minutes Azshan Robins [facility] Start: 02-11-2023 End: 02-12-2023 ambulatory KAUR ROBINS Facility:[facility] Start: 12-23-2022 End: 12-24-[address] JOSE BREWER Facility:[facility] Start: 11-11-2022 End: 11-12-[address] JOSE BREWER Facility:[facility] Start: 09-25-2022 End: 09-25-2022 ambulatory Kaur Robins Other [facility] Other Start: 09-25-2022 Office outpatient vi sit 25 minutes Aziz Ildas [facility] Start: 09-17-2022 End: 09-18-2022 ambulatory KAUR ROBINS Facility:[facility] Start: 07-30-2022 End: 07-31-[address] JOSE BREWER Facility:[facility] Start: 07-23-2022 End: 07-24-[address] JOSE BREWER Facility:[facility] Start: 07-09-2022 End: 07-10-[address] ALVA MAI Facility:[facility] Start: 05-16-2022 ambulatory JERICA MUÑIZ Facility :[facility] Start: 04-24-2022 End: 04-24-2022 Discharged Recurring MD Kaur Robins Work Phone: [facility] Start: 04-08-2022 End: 04-09-[address] JESSY LAMAS Facility:[facility] Start: 04-04-2022 End: 04-05-[address] JOSE BREWER Facility:[facility] Start: 04-02-2022 End: 04-02-2022 ambulatory Kaur Robins Other [facility] Other Start: 04-02-2022 Office outpatient vi sit 25 minutes Azshan Robins [facility] Start: 03-25-2022 End: 03-26-[address] DOCTOR ROSE Facility:[facility] Start: 03-12-2022 End: 03-13-[address] ALVA MAI Facility:[facility] Start: 03-08-2022 End: 03-09-2022 ambulatory JERICA MUÑIZ Facility:[facility] Start: 03-07-2022 End: 03-08-[address] ALVA MAI Facility:[facility] Start: 03-01-2022 End: 03-02-[address] ALVA MAI Facility:[facility] Start: 02-25-2022 ambulatory KAREEN CRABTREE Faci lity:[facility]1 Start: 01-22-2022 End: 01-22-2022 ambulatory Aziz Bakhous Other [facility] Other Start: 01-22-2022 Office outpatient vi sit 25 minutes Aziz Bakhous [facility] Start: 01-18-2022 End: 01-18-2022 ambulatory Aziz Bakhous Other [facility] Other Start: 01-18-2022 Telephone encounter Aziz Bakhous [facility] Start: 01-14-2022 End: 01-14-2022 ambulatory Aziz Bakhous Other [facility] Other Start: 01-14-2022 Telephone encounter Aziz Bakhous [facility] Start: 10-23-2021 End: 10-23-2021 ambulatory Aziz Bakhous Other [facility] Other Start: 10-23-2021 Telephone encounter Aziz Bakhous [facility] Start: 07-28-2020 End: 07-29-2020 Patient encounter procedure REFERRED SELF Facility:[facility] Plan of Treatment Date Care Activity Detail Author Start: 11-20-2028 DTaP,Tdap and Td Vaccines (2 - Td or Tdap) DTaP,Tdap and Td Vaccines (2 - Td or Tdap) [facility] [employer] [facility] Start: 07-24-2024 Adult [facility] Start: 07-24-2024 Tobacco Screening Tobacco Screening [facility] [employer] [facility] Start: 05-16-2024 Influenza vaccination Influenza Vacc ine [facility] Start: 04-29-2024 End: 04-29-2024 Patient encounter procedure 04/29/2024 1:00 PM EDT Office Visit [facility] [address] [place] [address] Jose Brewer MD [address] [place] [phone] [facility] Start: 12-25-2023 End: 12-25-2023 Patient encounter procedure 12/25/2023 9:00 AM EDT Office Visit [facility] [address] [place] [address] Brisa Enciso MD [address], [address] [address] [facility] Start: 10-30-2023 End: 10-30-2023 Patient encounter procedure 10/30/2023 2:15 PM EST Office Visit [facility] [address] [place] [address] Jose Brewer MD [address] [place] [id number] Arrived [facility] Comment on above: Arrived Start: 08-05-2021 Hemoglobin A1c measurement Diabetes: Hemoglobin A1C [facility] Start: 2001 Fall Risk Screening Fall Risk Screen ing [facility] Start: 1954 Adult BMI Follow Up Plan Adult BMI Follow Up Plan [facility] Start: 1948 Depression Screening Depression Scre ening [facility] Start: 1946 Glaucoma screening Diabetes: R etinopathy Screening [facility] Start: 1936 Medicare Annual Wellness (AWV) Medicare Annual Wellness (AWV) [facility] Start: 1936 Medicare Annual Wellness Visit Medicare Annual Wellness Visit [facility] Immunizations Immunization Date Immunization Notes Care Provider Fa cility 06-13-2023 influenza virus vaccine, unspecified formulation Brisa Enciso MD Work Phone: [facility] 05-06-2021 pneumococcal conjuga te vaccine, 13 valent Brisa Enciso MD Work Phone: [facility] 11-20-2018 tetanus toxoid, redu robert diphtheria toxoid, and acellular pertussis vaccine, adsorbed Brisa Enciso MD Work Phone: [facility] Payers Date Payer Category Payer Medicare [id number] 1958 Medicare [id number] 2. [id number] 1959 Self-pay [id number] 1959 Unknown [id number] 1936 Unknown [id number] 2.16.8 40.1.930471.3.579.2.647 1936 Unknown [id number] 2.16.84 0.1.224039.3.579.2.593 1936 Unknown [id number] 2.16.84 0.1.883938.3.579.2.593 1936 Unknown [id number] 2.16.84 0.1.745069.3.579.2.593 1936 Unknown [id number] 2.16.84 0.1.322157.3.579.2.593 1936 Unknown [id number] 2.16.84 0.1.270976.3.579.2.593 1936 Unknown [id number] 2.16.84 0.1.833568.3.579.2.593 1936 Unknown [id number] 2.16.84 0.1.314695.3.579.2.593 1936 Unknown [id number] 2.16.84 0.1.270264.3.579.2.593 1936 Unknown [id number] 2.16.84 0.1.492044.3.579.2.593 1936 Unknown [id number] 2.16.84 0.1.129147.3.579.2.593 1936 Unknown [id number] 2.16.84 0.1.728606.3.579.2.593 1936 Unknown [id number] 2.16.84 0.1.719138.3.579.2.593 1936 Unknown [id number] 2.16.84 0.1.590260.3.579.2.593 1936 Unknown [id number] 2.16.84 0.1.004062.3.579.2.593 1936 Unknown [id number] 2.16.84 0.1.177557.3.579.2.593 1936 Unknown [id number] 2.16.84 0.1.996503.3.579.2.593 1936 Unknown [id number] 2.16.8 40.1.078674.3.579.2.1286 1936 Unknown [id number] 2.16.8 40.1.394710.3.579.2.1286 1936 Unknown [id number] 2.16.8 40.1.044845.3.579.2.1286 1936 Unknown [id number] 2.16.8 40.1.917423.3.579.2.1286 1936 Unknown [id number] 2.16.8 40.1.465467.3.579.2.1286 1936 Unknown [id number] 2.16.8 40.1.735506.3.579.2.1286 1936 Unknown [id number] 2.16.8 40.1.521542.3.579.2.1286 1936 Unknown [id number] 2.16.8 40.1.507309.3.579.2.1285 1936 Unknown [id number] 2.16.8 40.1.342851.3.579.2.1285 1936 Unknown [id number] 2.16.8 40.1.299476.3.579.2.1285 1936 Unknown [id number] 2.16.8 40.1.777989.3.579.2.1285 1936 Unknown [id number] 2.16.8 40.1.082418.3.579.2.1285 1936 Unknown [id number] 2.16.8 40.1.620696.3.579.2.1285 1936 Unknown [id number] 2.16.8 40.1.348920.3.579.2.1285 1936 Unknown [id number] 2.16.8 40.1.088150.3.579.2.128 1936 Unknown [id number] 2.16.8 40.1.531704.3.579.2.1285 1936 Unknown [id number] 2.16.8 40.1.036252.3.579.2.1285 1936 Unknown [id number] 2.16.84 0.1.895833.3.579.2.1259 1936 Unknown [id number] 2.16.84 0.1.500302.3.579.2.1259 Unknown [id number] Social History Date Type Detail Facility Unknown if ever smoked [facility] Other Start: 10-26-2020 End: 10-08-2023 Sex Assigned At [employer] Other Start: 1935 Sex Assigned At Male [facility] Start: 07-24-2023 End: 10-08-2023 Tobacco smoking status NHIS Ex-smoker [facility] End: 09-15-2011 History of tobacco use Current smoker [facility] End: 09-15-2011 History of tobacco [...] Healthcare Start: 12-18-2023 Alcohol intake Current non-dr merchandise shopper of alcohol (finding) [facility] Equipment Procedure Code Equipment Code Equipment Origin al Text Equipment Identifier Dates 3 times a day [id number] Start: 08-25-2023 1 each by Other route if needed [id number] Start: 08-06-2023 ACCU-CHEK SOFTCL IX LANCETS lancets [id number] Start: 12-31-2016 Goals Date Patient Goal Desired Activity /State Personal health goal Comment on above: Formatting of this n ote might be different from the original. Evaluation of progress towards goal: Safe dc return home with family support and resume with [facility]. Clinical Notes 01-14-2022 to 11-03-2023 Jose Brewer MD - 10/30/2023 3:17 PM Carloann Brewer MD - 10/30/2023 3:16 PM Carolann Brewer MD - 10/30/2023 3:16 PM Carolann Brewer MD - 10/30/2023 3:16 PM EST Note Date & Type Note Facility 11-03-[address] [facility] Cardiology Clinic Note Chief Complaint: Patient here for 6 mo follow up CAD, hypertension, chronic systolic heart failure, and aortic valve stenosis. Had carotid US in May and labs in Jun 2023. 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 Patient denies chest pain, palpitations, and lightheadedness/syncope. Says his BERG is better with inhaler. HPI: Carlo Suarez is a 87 y.o. male with a history of coronary artery disease, s/p PCI of the LAD in 2018, moderate aortic stenosis and chronic kidney disease stage III; he underwent a right heart catheterization 07/2020 Update 11/03/2023: Doing well. 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 Denies recent weight gain. No orthopnea, no paroxysmal external dyspnea. Leg swelling is stable. Cardiology ROS: Review of Systems Cardiovascular: Positive for dyspnea on exertion (improving) and leg swelling (controlled w/ compression stockings). All other systems reviewed and are negative. Past Medical History He has a past medical history of CHF (congestive heart failure) (CMS/[facility]), Coronary artery disease, Heart valve disease, and [...] Dyslipidemia Peripheral veno (more content not included)... [facility] 10-30-2023 History of Present illness Narrative Associated Problem(s): PAD (peripheral artery disease) (CMS/HCC) Symptoms stable and follow up with vascular surgery. Associated Problem(s): Skin candidiasis Developed rash and use cream PRN. Associated Problem(s): Type 2 diabetes mellitus with microalbuminuria, without long-term current use of insulin ([facility]) Reports BS elevated and follow up with [...] controlled and monitor PRN. Subjective Patient ID: Carlo Suarez is a 87 y.o. male who [...] heart failure with preserved ejection fraction (HFpEF) ([facility]) Edema stable and continue medication. Wear compression stockings daily. Elevated legs PRN. Primary osteoarthritis of shoulders, bilateral Mild pain but tolerable and use OTC PRN. Type 2 diabetes mellitus with microalbuminuria, without long-term current use of insulin ([facility]) - Primary Reports BS elevated and follow up with endocrinology. Stick to ADA diet and limit carbs. Gastroesophageal reflux disease without esophagitis Symptoms controlled with protonix and continue. Skin candidiasis Developed rash and use cream PRN. Relevant Medications clotrimazole (Lotrimin) 1 % cream documented in this encounter [facility] 08-04-2023 Evaluation note Encounter Date Diagnosis Assessment Notes Jul, Benign prostatic hyperplasia with lower urinary tract symptoms (ICD-10 - N40.1) [facility] Other 10-26-2023 Evaluation note* Encounter Date Diagnosis [...] an d reflux uropathy (ICD-10 - N13.8) [facility] Other 08-09-2023 NoteCardiology Clinic Note Subjective Carlo Suarez is a 87 y.o. 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 Patient Active Problem List Diagnosis Anemia Aortic valve stenosis B12 deficiency Bilateral carotid bruits Bilateral impacted cerumen Chronic eczematous otitis externa of both ears Chronic kidney disease, stage 3b (CMS/HCC) Hypertension Coronary atherosclerosis Diastolic heart failure (CMS/HCC) Dizziness Dyspnea Iron deficiency anemia Melena PAD (peripheral artery disease) (CMS/HCC) Peripheral neuropathy Syncope Type 2 diabetes mellitus with chronic kidney disease, without long-term current use of insulin (CMS/HCC) Family History Problem Relation Name Age of Onset No Known Problems Mother No Known Problems Father Social History Tobacco Use Smoking status: Former Types: Cigarettes Start date: 09/1949 Quit date: 2010 Years since quittin.6 Smokeless tobacco: Never Substance Use Topics Alcohol use: Yes Carlo Suarez is a 87 y.o. year old [...] from nephrology apt on 03/07/23. 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 Complains of shortness of breathe with exertion, [...] left ventricular systolic fun (more content not included)...[facility] Chief Complaint: Follow up HPI: Carlo Suarez is a 87 y.o. male Follow up from nephrology apt on 6/23/23. 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 Complains of shortness of breathe with exertion, [...] several months. He was seen in his manager rn office; was felt to be volume overloaded. [...] following testing Jessy Lamas MD, MPH, FACC, [facility], [place] Interventional C (more content not included)...[facility] Evaluation note* Encounter Date Diagnosis Assessment Notes [...] add Flomax 0.4 mg PO at HS. 23 Feb, 2023 Other obstructive an d reflux uropathy (ICD-10 - N13.8) [facility] Other 01-11-2023 Evaluation note* Encounter Date Diagnosis [...] IV Iron Sep, Hypomagnesemia (ICD-10 - E83.42) [facility] Other 07-19-2022 Evaluation note* Encounter Date Diagnosis [...] will schedule II more doses of Injectafer [facility] Other 05-10-2022 Evaluation note* Encounter Date Diagnosis [...] daily January, Iron deficiency (ICD-10 - E61.1) [facility] Other 05-02-2022 Evaluation note* Encounter Date Diagnosis Assessment Notes Treatment Notes Treatment Clinical Notes January, Stage 3b chronic kidney disease (CKD) (ICD-10 - N18.32) January, Localized edema (ICD-10 - R60.0) January, Primary hypertension (ICD-10 - I10) [facility] Other Evaluation noteNo InformationNort [employer] Other Evaluation noteNo assessment information available [facility] Work Phone: Evaluation note* Diagnosis Type 2 diabetes mellitus with microalbuminuria, without long-term current use of insulin ([facility])- Primary Chronic heart failure with preserved ejection fraction (HFpEF) (CMS/HCC) Benign essential hypertension (CMS/HCC) Essential hypertension, benign [...] C ATHETERIZATION 01/18/2019 Hospitalization History SEE ABOVE [facility] Other History general Narrative - Reported* Type [...] CATARACT REMOVED 02/2023 Hospitalization History SEE ABOVE [employer] Other InstructionsNot on filedocumented in this encounter [facility] Summary Purpose Family History No Family History [...] and content) DATE CREATED AUTHOR 05/22/2020 Curt Rodriguez [facility] DATE CREATED AUTHOR AUTHOR'S ORGANIZ ATION 09/07/[address] [facility] DATE CREATED AUTHOR AUTHOR'S ORGANIZ ATION 02/21/2023 [facility] DATE CREATED AUTHOR AUTHOR'S ORGANIZ ATION 12/26/2023 [facility] DATE CREATED AUTHOR AUTHOR'S ORGANIZ ATION 02/12/2024 [facility] DATE CREATED AUTHOR AUTHOR'S ORGANIZ ATION 03/11/2024 [facility] DATE CREATED AUTHOR AUTHOR'S ORGANIZ ATION 03/13/2024 [facility] DATE CREATED AUTHOR AUTHOR'S ORGANIZ ATION 03/16/2024 [facility] EPIC REASON FOR VISIT (unrecogniz ed section and [...] Kaur Robins MD Primary Care Provider Active [employer] Relationship Specialty Start Date End Date Jose Brewer MD [address] [place] [address] PCP - General Family Medicine 10/06/23 [employer] Relationship Specialty Start Date End Date Jose Brewer MD [address] [place] [address] PCP - General Family Medicine 10/06/23 [employer] Relationship Specialty Start Date End Date Jose Brewer MD [address] [place] [address] PCP - General 10/08/17 Goals (unrecognized section [...] BE BASED ON THE PRIMARY CLINICAL RECORDS. [facility] provides no warranty or guarantee of the accuracy or completeness of information in this document.
[2024-04-26 11:24] LABS: Hematocrit 39.9 % (42.0-54.0); Hemoglobin 13.3 g/dL (14.0-18.0); Mean Corpuscular HGB Conc 33.3 g/dL (29.9-35.2); Mean Corpuscular Hemoglobin 33.8 pg (25.9-34.0); Mean Corpuscular Volume 101.3 fL (80.0-94.0); Mean Platelet Volume 10.6 fL (9.5-13.5); Platelet Count 131 10^3/uL (150-450); Red Blood Count 3.94 10^6/uL (4.70-6.10); Red Cell Distribution Width 14.4 % (11.0-15.0)
[2024-04-26 11:29] LABS: Bilirubin Urine NEGATIVE (NEGATIVE); Blood Urine NEGATIVE (NEGATIVE); Clarity Urine CLEAR (CLEAR); Color Urine LT. YELLOW (YELLOW); Glucose Urine UA >=1000 mg/dL (NEGATIVE); Ketones Urine NEGATIVE (NEGATIVE); Leukocyte Esterase Urine NEGATIVE (NEGATIVE); Nitrite Urine NEGATIVE (NEGATIVE); Protein Urine NEGATIVE (NEG/TRACE); Urobilinogen Urine 0.2 EU/dL (0.2-1.0)
[2024-04-26 11:53] LABS: Creatinine Urine Random <13.00 mg/dL (20.00-300.00); Total Protein Urine Random 9.1 mg/dL (<=11.9)
[2024-04-26 12:20] LABS: Albumin Level 3.4 g/dL (3.4-5.0); Anion Gap 11.7; BUN Creatinine Ratio 23.3; Calcium 9.4 mg/dL (8.5-10.1); Carbon Dioxide 29.1 mmol/L (21.0-32.0); Chloride 102 mmol/L (98-107); Estimated GFR (African America 46 (>=60); Estimated GFR (Non-African Ame 38 (>=60); Glucose 208 mg/dL (74-106); Magnesium 1.7 mg/dL (1.8-2.4); Phosphorus 3.6 mg/dL (2.6-4.7); Potassium 3.8 mmol/L (3.5-5.1); Sodium 139 mmol/L (136-145); Uric Acid 6.7 mg/dL (3.5-7.2)
[2024-04-27 10:11] LABS: PTH, Intact 78 pg/mL (15-65)
[2024-04-27 16:17] LABS: Microalbumin Urine Random <1.3 mg/dL (<=30.0)
== END 2024-04-26 10:57 | disposition home or self-care (01) ==
LOC: LAB 10:58
PROVIDERS: PCP Family Medicine; Visit Provider Internal Medicine Nephrology
DX: N40.1 Benign prostatic hyperplasia with lower urinary tract symptoms (principal); E11.21 Type 2 diabetes mellitus with diabetic nephropathy; E79.0 Hyperuricemia without signs of inflammatory arthritis and tophaceous disease; N18.32 Chronic kidney disease, stage 3b; E83.51 Hypocalcemia; E87.70 Fluid overload, unspecified; I12.9 Hypertensive chronic kidney disease with stage 1 through stage 4 chronic kidney disease, or unspecified chronic kidney disease
CPT/HCPCS: 36415; 80069; 81003; 82043; 82306; 82570; 83735; 83970; 84156; 84550; 85027

== ENCOUNTER 2024-05-27 09:51 | Outpatient (OUT) | payer MEDICARE, SELFPAY ==
--- NOTE | 2024-05-27 10:00 | CA_ITS ---
Patient Name: CARLO SUAREZ MR#: [id number] : 1935 Exam Date: 05/27/2024 Ordering Doctor: DR JAIDEN JONES M.D. ECHOCARDIOGRAM REPORT PROCEDURE: CA ECHO DOPPLER COMPLETE INDICATIONS: Aortic valve stenosis COMPARISON: None. DESCRIPTION: COMPLETE ECHOCARDIOGRAM Real-time transthoracic echocardiography with 2D, M-mode, spectral and color flow Doppler performed. QUALITY: Technical quality was good. LEFT VENTRICLE: Normal chamber size. Normal left ventricular wall thickness. LV EF: Global left ventricular systolic function is normal; visually estimated ejection fraction is 55%. No obvious wall motion abnormalities DIASTOLIC: Diastolic function is indeterminate. ATRIAL SEPTUM: Visually appears intact. LEFT ATRIUM: Moderate dilatation. RIGHT ATRIUM: Mild dilatation. RIGHT VENTRICLE: Normal chamber size. Normal right ventricular systolic function. TRICUSPID VALVE: Normal mobility and thickness. No stenosis with trivial regurgitation. No evidence of pulmonary hypertension. RVSP 33 mmHg MITRAL VALVE: Normal mobility and thickness. No evidence of mitral valve stenosis. There is no mitral annular calcification. Mild mitral regurgitation. AORTIC VALVE: Normal trileaflet appearance. Moderately calcified aortic valve with diminished mobility. Doppler velocity suggests mild aortic valve stenosis. DVI 0.3, SINAN 1.5 cm2. Mild aortic regurgitation. AORTIC ROOT: Normal diameter and appearance. Ascending aorta is normal in size. PULMONIC VALVE: Normal thickness and mobility. No stenosis. No regurgitation. PERICARDIUM: Anterior free space; trivial effusion versus fat pad. IVC: Collapses with inspirations. CONCLUSION: 1. Global left ventricular systolic function is normal; visually estimated ejection fraction is 55% 2. Normal right ventricular size and systolic function 3. Diastolic function is indeterminate 4. Biatrial dilatation 5. Mild mitral regurgitation 6. Mild aortic valve stenosis; mild aortic valve regurgitation 7. Anterior free space; trivial effusion versus fat pad Adult Echocardiography Procedure Report Left Ventricle LVEDD (3.7 - 5.6 cm): 4.65 cm LVESD (2.2 - 4.0 cm): 3.26 cm LVIVS thickness (0.6 - 1.2 cm): 0.95 cm LVPW thickness (0.5 - 1.0 cm): 1.03 cm e': 0.08 m/s E - e': 9.45 LVOT Max Gradient: 2.05 mm[Hg] LVOT Area (cm2): 0.72 m/s Peak Velocity (LVOT): 0.72 m/s Mean Velocity (LVOT): 0.55 m/s LVOT Diameter 2.39 cm Left Atrium Left Atrium Systolic Dimension: 3.77 cm Mitral Valve MV E to A Ratio: 0.84 Mitral Valve A-Wave Peak Velocity: 0.92 m/s Mitral Valve E-Wave Peak Velocity: 0.77 m/s Right Ventricle Aorta AO Root Diam: 3.31 cm Ascending Ao Diam: 2.89 cm Aortic Valve AoV Area (Peak Shaheen): 1.56 cm2, 1.56 cm2 AoV Area (VTI): 1.48 cm2, 1.48 cm2 Deceleration [place]: 1.66 m/s2 Pressure Half-Time: 596.82 ms Peak Velocity(Antegrade Flow): 2.06 m/s, 1.97 m/s Peak Gradient(Antegrade Flow): 17.01 mm[Hg], 15.50 mm[Hg] Mean Velocity(Antegrade Flow): 1.44 m/s, 1.36 m/s Mean Gradient(Antegrade Flow): 9.40 mm[Hg], 8.36 mm[Hg] Velocity Time Integral: 49.77 cm, 48.21 cm Tricuspid Valve Peak Velocity (Regurgitant Flow): 2.75 m/s Pulmonic Valve Mean Gradient: 1.90 mm[Hg] Mean Velocity: 0.64 m/s Peak Velocity: 1.03 m/s, 1.24 m/s Peak Gradient: 6.16 mm[Hg], 4.21 mm[Hg] Right Atrium Dictated by: Jaiden Jones M.D. on 05/27/2024 at 17:31 Approved by: Jaiden Jones M.D. on 05/27/2024 at 17:35
== END 2024-05-27 09:52 | disposition home or self-care (01) ==
LOC: CARD 09:53
PROVIDERS: PCP Family Medicine; Visit Provider Internal Medicine Interventional Cardiology
DX: I35.0 Nonrheumatic aortic (valve) stenosis (principal)
CPT/HCPCS: 93306

== ENCOUNTER 2024-10-11 12:21 | Outpatient (OUT) | payer MEDICARE, SELFPAY ==
--- OUTSIDE RECORDS SUMMARY | 2024-10-11 12:36 | XMS_ITS | CCD ---
Author Organization [facility] Care Team Providers Care Environmental Specialist Name Role Phone SELF, REFERRED Referring Unavailable ELENA JONES Admitting Unavailable ELENA JONES Attending Unavailable JOSE BREWER Primary Care Unavailable [...] NADERER, DR JOSE Dhaliwal Primary Care Unavailable [facility] DR HOLLIS Swanson Consulting Unavailable WEST, DR [...] NADERER, DR JOSE Dhaliwal Primary Care Unavailable DELIA WATKINS Consulting Unavailable DELIA WATKINS Attending Unavailable DELIA WATKINS Admitting Unavailable MISC, DR REYNAGA Consulting Unavailable MISC, DR REYNAGA Attending Unavailable NADERER, DR JOSE Dhaliwal Primary Care Unavailable MISC, DR REYNAGA Admitting Unavailable KAUR ROBINS Consulting Unavailable KAUR ROBINS Attending Unavailable KAUR ROBINS Admitting Unavailable NADEREKiki, DR JOSE Dhaliwal Primary Care Unavailable EARL, JERICA Attending Unavailable NADERER, DR JOSE Dhaliwal Primary Care Unavailable EARL, JERICA Admitting Unavailable EARL, JERICA Consulting Unavailable NADERER, DR JOSE Dhaliwal Primary Care Unavailable MISC, DR REYNAGA Consulting Unavailable MISC, DR REYNAGA Attending Unavailable MISC, DR REYNAGA Admitting Unavailable [...] Unavailable ZIEBER, DR HOLLIS Swanson Consulting Unavailable Naderer Jose EATON Primary Care Provider [phone] Jose Brewer MD Primary Care Provider JOSE BREWER Referring Unavailable NADERER, JOSE Primary Care Unavailable KOJO, MOHAMED F Admitting Unavailable KOJO, MOHAMED F Attending Unavailable KOJO, MOHAMED F Referring Unavailable NADERER, JOSE Primary Care Unavailable NADERER, JOSE Primary Care Unavailable KOJO, MOHAMED F Admitting Unavailable KOJO, MOHAMED F Attending Unavailable NADERER, JOSE Primary Care Unavailable ABBASDAISY T Referring Unavailable NADERER, JOSE Primary Care Unavailable NADERER, JOSE Referring Unavailable NADERER, JOSE Primary Care Unavailable KOJO, MOHAMED F Attending Unavailable KOJO, MOHAMED F Referring Unavailable NADERER, JOSE Primary Care Unavailable NADERER, JOSE Primary Care Unavailable QUIANA, NISHANT T Attending Unavailable QUIANA, NISHANT T Attending Unavailable NISHANT ARAYA T Referring Unavailable NADERER, JOSE Primary Care Unavailable KOJO, MOHAMED F Attending Unavailable KOJO, MOHAMED F Referring Unavailable NADERER, JOSE Primary Care Unavailable NADERER, JOSE Primary Care Unavailable ZULAY GARCIA Attending Unavailable ZULAY GARCIA Attending Unavailable ZULAY GARCIA Referring Unavailable DANIELLA, JOSE Primary Care Unavailable BRISA ENCISO Attending Unavailable JOSE BREWER Referring Unavailable NADEREKiki, JOSE Primary Care Unavailable BRISA ENCISO Attending Unavailable DANIELLA, JOSE Referring Unavailable DANIELLA, JOSE Primary Care Unavailable BRISA ENCISO Attending Unavailable JOSE BREWER Referring Unavailable DANIELLA, JOSE Primary Care Unavailable BRISA ENCISO Attending Unavailable JOSE BREWER Referring Unavailable DANIELLA, JOSE Primary Care Unavailable MD Jose Brewer Primary Care Provider [phone] MD Andry Morales Attending Provider Jose Brewer MD Primary Care Provider JOSE BREWER Attending Unavailable SHAIKH CRUMP Attending Unavailable DANIELLA, JOSE Attending Unavailable DANIELLA, JOSE Attending Unavailable CHANELLE BENZ Attending Unavailable JOSE BREWER Referring Unavailable ELTAHAWY, EHAB Attending Unavailable ELTAHAWY, EHAB Attending Unavailable Daniella, Jose Primary Care Unavailable Asaad, Imad Admitting Unavailable Asaad, Imad Attending Unavailable Daniella, Jose Primary Care Unavailable Asaad, Imad Admitting Unavailable Asaad, Imad Attending Unavailable Asaad, Imad Admitting Unavailable Asaad, Imad Attending Unavailable Daniella, Jose Primary Care Unavailable Allergies Allergy Classification Reported Allergen(s) Allergy Type Date of Onset Reaction(s) Facility (1 source) Penicillin V Drug Allergy stomach upset [employer] Other (5 sources) Penicillin; Translations: [penicillin] Drug Allergy stomach upset [facility] Repository (5 sources) cefdinir; Translations: [CEFDINIR] Drug Allergy 09-15-19 20 [facility] Repository (11 sources) cefdinir Drug Allergy 10-08-19 24 Diarrhea [facility] (15 sources) Penicillins; Translations: [PENICILLINS] Drug Intolerance 05-05-20 21 Diarrhea, Nausea And Vomiting, GI intolerance, Unknown [facility] Work Phone: (11 sources) Shellfish Propensity to adverse reactions 01-29-20 14 Rash [facility] (3 sources) Penicillins Propensity to adverse reactions to drug 05-05-20 Nausea And Vomiting [facility] (5 sources) SHELLFISH CONTAINING PRODUCTS; Translations: [SHELLFISH CONTAINING PRODUCTS] Propensity to adverse reactions to food (disorder) 01-29-20 Rash [facility] Repository (2 sources) cefdinir Drug Allergy 10-08-19 Diarrhea [facility] (1 source) Penicillins Drug allergy (disorder) 06-17-20 [facility] Repository Medications Current Medications Medication Drug Class(es) Dates Sig (Normalized) Sig (Original) acetaminophen 500 mg oral tablet (1 source) Start: 02-12-2024 take 2 tablets by mouth every six hours as needed acetaminophen (acetaminophen Extra Strength) 500 mg tablet Take 2 tablets (1,000 mg total) by mouth every 6 (six) hours as needed (pain - pain rated 1-4). 30 tablet 02/12/2024 Active [id number] 200 actuat albuterol 0.09 mg/actuat metered dose inhaler (18 sources) beta2-Adrenergic Agonist Start: 11-18-2023 take 1 puff(s) by inhalation four times daily Albuterol Sulfate (Proair Hfa) 90 mcg/actuation HFA aerosol inhaler Active 2 PUFF INHALATION Four times daily November 18, 2023 1:00am Start: 05-13-2023 albuterol HFA 90 mcg/act inhaler 1 puff 05/13/2023 Active End: 10-30-2023 albuterol (ProAir RespiClick ) 90 mcg/act breath-activated inhaler every 4 (four) hours. 0 10/30/2023 Discontinued (Therapy completed) albuterol 0.833 mg/ml / ipratropium bromide 0.167 mg/ml inhalation solution (14 sources) Anticholinergic, beta2-Adrenergic Agonist Start: 11-18-2023 take 1 mL by inhalation four times daily Ipratropium-Albuterol Active 3 ML INHALATION Four times daily November 18, 2023 1:00am Albuterol-Ipratr opium Active ascorbic acid 113 mg / copper [...] TWICE A DAY Active aspirin 81 mg delayed release oral tablet (3 sources) Platelet Aggregation Inhibitor, Nonsteroidal Anti-inflammatory Drug take 1 tablet by mouth once daily aspirin 81 MG EC tablet Take 1 tablet by mouth Daily Active take 1 tablet by mouth once melissa y Aspirin 81 81 MG 1 tablet Orally Once a day Active atorvastatin 40 mg oral tablet (20 sources) HMG-CoA Reductase Inhibitor Start: 04-01-2017 End: 10-30-2023 take 1 tablet by mouth once daily Atorvastatin Active 1 TAB PO Daily November 18, 2023 1:00am FreeTextSi tablet Orally Once a day; Note: Source Status: Taking; Provider: Gaye Dietrich ( ) bumetanide 0.5 mg oral tablet (20 sources) Loop Diuretic Start: 03-22-2024 End: 04-22-2024 take 4 tablets by mouth once daily in the morning, then take 4 tablets by mouth once daily in the evening Bumetanide Active 0 .ROUTE .COMPLEX 240 April 22, 2024 2:12pm TAKE FOUR TABLETS BY MOUTH EVERY MORNING AND TAKE FOUR TABLETS BY MOUTH EVERY EVENING Start: 11-18-2023 End: 03-22-2024 take 2 mg by mouth twice daily Bumetanide Discontinued 2 MG PO Twice daily November 18, 2023 1:00am March 22, 2024 5:41pm Start: 10-14-2023 take 1 tablet by lynne th twice daily before mealtime, then take 4 tablets by mouth twice daily bumetanide (BUMEX) 0.5 mg tablet Take 1 tablet (0.5 mg total) by mouth 2 (two) times a day before meals. Take 4 pills bid 10/14/2023 Active Start: 10-23-2021 take 2 tablets by mo uth once daily Bumex 0.5 MG 2 tabs Orally Once a day for 90 days Oct, Active take 1 tablet by lynne th once daily bumetanide (Bumex) 0.5 MG tablet Take 0.5 mg by mouth 1 (one) time each day at the same time. Active take 4 tablets by mo uth in the morning, then take 4 tablets by mouth once daily in the evening Bumex 0.5 MG 4 tabs in am and 4 tab PM Orally Once a day for 30 days Active Calcium Carbonate (20 sources) Start: 01-14-2022 Calcium Carbon ate 1250 (500 Ca) MG 2 Orally bid January, Active Start: 01-14-2022 Calcium Carbon ate 1250 (500 Ca) MG 2 Orally bid for 30 day(s) January, Active take 1 tablet by lynne th in the morning calcium carbonate (Os-Shira) 1250 (500 Ca) MG tablet Take 1 tablet by mouth in the morning and 1 tablet before bedtime. Active take 1 tablet by lynne th in the morning calcium carbonate (OS-SHIRA) 500 mg elemental (1,250 mg) tablet Take 1 tablet (500 mg total) by mouth in the morning. Active Calcium Carbonat e 1250 (500 Ca) MG 2 Orally bid Not-Taking Calcium Carbonat e 1250 (500 Ca) MG 2 Orally bid Active carvedilol 3.125 mg oral tablet (20 sources) alpha-Adrenergic Estuardo, beta-Adrenergic Estuardo Start: 11-18-2023 take 1 tablet by mouth twice daily at mealtime Carvedilol Active 3.125 MG PO Twice daily November 18, 2023 1:00am FreeTextSi tablet with food Orally Twice a day; Note: Source Status: Taking; Provider: Gaye Dietrich Start: 05-08-2021 take 1 tablet by lynne th twice daily at mealtime carvediloL (COREG) 6.25 mg tablet Take 1 tablet (6.25 mg total) by mouth 2 (two) times a day with meals. 60 tablet 05/08/2021 Active take 1 tablet by lynne th every twelve hours Carvedilol 12.5 MG 1 tablet with food Orally Twice a day Active chlorthalidone 25 mg oral tablet (7 sources) Thiazide-like Diuretic take 1 tablet by mouth once daily chlorthalidone (HYGROTON) 25 mg tablet Take 1 tablet (25 mg total) by mouth daily. Active clopidogrel 75 mg oral tablet (20 sources) P2Y12 Platelet Inhibitor Start: 11-18-19 take 1 tablet by mouth once daily Clopidogrel (Plavix) 75 mg tablet Active 1 TAB PO Daily November 18, 2023 1:00am FreeTextSi tablet Orally Once a day; Note: Source Status: Taking; Provider: Gaye Dietrich ( ) clotrimazole 10 mg/ml topical cream (10 sources) Azole Antifungal Start: 10-30-19 clotrimazole (Lotrimin) 1 % cream Indications: Skin candidiasis Apply topically 2 (two) times a day 60 g 2 10/30/2023 Active empagliflozin 10 mg oral tablet (19 sources) Sodium-Glucose Cotransporter 2 Inhibitor Start: 10-25-19 End: 10-16-19 take 1 tablet by mouth once daily empagliflozin (Jardiance) 10 MG Indications: Type 2 diabetes mellitus with hyperglycemia, with long-term current use of insulin ([facility]) Take 1 tablet (10 mg) by mouth Daily 30 tablet 1 07/18/2024 10/16/2024 Active 15 ml ferric carboxymaltose 50 mg/ml injection (3 sources) Start: 01-23-20 Injectafer 750 MG/15ML as directed Intravenous every 2 weeks for 14 days January, Active ferrous sulfate 325 mg oral tablet (20 sources) Start: 11-18-19 take 1 tablet by mouth twice daily Ferrous Sulfate Active 325 MG PO Twice daily November 18, 2023 1:00am FreeTextSi tablet Orally twice a day; Note: Source Status: Taking; Provider: Gaye Dietrich take 1 tablet by mouth at [place] ferrous sulfate 325 (65 Fe) MG tablet Take 65 mg by mouth in the morning. Take with meals. Active ferrous sulfate 325 (65 FE) mg EC tablet Take 1 tablet (325 mg total) by mouth in the morning and 1 tablet (325 mg total) at noon and 1 tablet (325 mg total) in the evening. Take with meals. Active take 1 tablet by mouth every [...] / vilanterol 0.025 mg/actuat dry powder inhaler (3 sources) Corticosteroid, beta2-Adrenergic Agonist take 1 puff(s) by inhalation in the morning fluticasone furoate-vilantero L (BREO ELLIPTA) 100-25 mcg/dose blister with device Inhale 1 puff in the morning. Active 120 actuat formoterol fumarate 0.0048 mg/actuat / glycopyrrolate 0.009 mg/actuat metered dose inhaler (18 sources) beta2-Adrenergic Agonist Start: Glycopyrrolate-Fo rmoterol (Bevespi Aerosphere) 9-4.8 mcg HFA aerosol inhaler Active 2 PUFF INHALATION Twice daily November 18, 2023 1:00am take 2 puff(s) by in halation in the morning Glycopyrrolate-Formoterol 9-4.8 MCG/ACT aerosol Inhale 2 puffs in the morning and 2 puffs before bedtime. Active glimepiride 4 mg oral tablet (20 sources) Sulfonylurea Start: 05-04-2024 take 4 mg by mouth twice daily Glimepiride Active 4 MG PO Twice daily May 04, 2024 12:00am Start: 11-25-2023 take 1 tablet by lynne th once daily before breakfast glimepiride (AMARYL) 4 mg tablet Take 1 tablet (4 mg total) by mouth every morning before breakfast. 11/25/2023 Active Start: 10-01-2022 End: 05-04-2024 glimepiride (Amaryl) 2 MG ta blet Take 2 mg by mouth. 10/01/2022 Active hydrOXYzine hydrochloride 25 mg oral tablet (20 sources) Antihistamine Start: 11-18-2023 take 1 tablet by mouth every six hours as needed Hydroxyzine Hcl Active 25 MG PO Every 6 hours November 18, 2023 1:00am FreeTextSi tablet as needed Orally every 6 hrs; Note: Source Status: Taking; Provider: Gaye Dietrich ( ) take 1 tablet by lynne th three times daily as needed hydrOXYzine (ATARAX) 25 mg tablet Take 1 tablet (25 mg total) by mouth 3 (three) times a day as needed for itching. Active ipratropium bromide 0.021 mg/actuat metered dose nasal spray (2 sources) Anticholinergic take 2 spray(s) nasal route in the morning ipratropium (ATROVENT) 21 mcg (0.03 %) nasal spray Administer 2 sprays into each nostril in the morning and 2 sprays before bedtime. Active lisinopril 40 mg oral tablet (6 sources) Angiotensin Converting Enzyme Inhibitor take 1 tablet by mouth once daily lisinopril 40 MG tablet Take 1 tablet by mouth Daily Active take 1 tablet by lynne th every twenty-four hours Lisinopril 10 MG 1 tablet Orally Once a day Active Magnesium (4 sources) Magnesium 400 MG as directed Orally twice daily Active Magnesium Bisglycinate 100 MG (2 sources) Start: 07-10-2023 take 2 tablets by mouth once daily Magnesium Bisglycinate 100 MG 2 tab Orally daily for 30 days Jun, Active magnesium oxide 400 mg oral tablet (20 sources) Start: 11-18-2023 take 400 mg by mouth once daily Magnesium Oxide Active 400 MG PO Daily November 18, 2023 1:00am Start: 10-14-2023 take 1 tablet by lynne th in the morning magnesium oxide 420 MG tablet Take 1 tablet by mouth in the morning. 10/14/2023 Active End: 10-30-2023 take 1 tablet [...] / sodium sulfate 0.257 meq/ml oral solution (2 sources) Start: 05-18-2021 take 177 mL by mouth twice daily SUPREP BOWEL PREP KIT 17.5-3.13-1.6 gram recon soln 177 ml,actual weight, 2 times daily, Oral 177 mL 05/18/2021 Active meclizine hydrochloride 25 mg oral tablet (20 sources) Antiemetic Start: 11-18-2023 take 1 tablet by mouth four times daily as needed Meclizine Active 25 MG PO Four times daily November 18, 2023 1:00am FreeTextSi tablet as needed Orally FOUR TIMES A DAY PRN; Note: Source Status: Taking; Provider: Gaye Dietrich ( ) take 1 tablet by lynne th every twelve hours meclizine (Antivert) 25 MG tablet 25 mg every 12 (twelve) hours. Active mecobalamin 1 mg chewable tablet (5 sources) Start: 11-18-2023 take 1000 ug by mouth once daily Mecobalamin (Vitamin B12) Active 1000 MCG PO Daily November 18, 2023 1:00am mlqqrkoa-qzid-KS-calc ium &mins (THERAGRAN-M) 9 mg iron-400 mcg tablet (1 source) juxmuaon-tyju-TT -c alcium &mins (THERAGRAN-M) 9 mg iron-400 mcg tablet Take 1 tablet by mouth in the morning. Active ondansetron 4 mg disintegrating oral tablet (6 sources) Serotonin-3 Receptor Antagonist Start: 05-04-2024 take 4 mg by mouth once daily Ondansetron Active 4 MG PO Daily May 04, 2024 12:00am Start: 03-09-2024 ondansetron OD T (ZOFRAN ODT) 4 mg disintegrating tablet Indications: Gastroenteritis Dissolve 1 tablet (4 mg total) on tongue 3 (three) times a day as needed for nausea for up to 3 doses. 3 tablet 03/09/2024 Active pantoprazole 40 mg delayed release oral tablet (20 sources) Proton Pump Inhibitor Start: 05-08-2021 take 1 tablet by mouth once daily before breakfast pantoprazole (PROTONIX) 40 mg EC tablet Take 1 tablet (40 mg total) by mouth every morning before breakfast. 30 tablet 05/08/2021 Active pioglitazone 15 mg oral tablet (7 sources) Peroxisome Proliferator Receptor alpha Agonist, Peroxisome Proliferator Receptor gamma Agonist, Thiazolidinedione Start: 03-27-2021 take 1 tablet by mouth in the morning pioglitazone (ACTOS) 15 mg tablet Take 1 tablet (15 mg total) by mouth in the morning. 03/27/2021 Active ProAir RespiClick 90 MCG (9 sources) ProAir RespiClic k 90 MCG 2 inhalations every 4 to 6 hours as needed Active SITagliptin 50 mg oral tablet (20 sources) Dipeptidyl Peptidase 4 Inhibitor Start: 06-17-2024 take 50 mg by mouth once daily Sitagliptin Active 50 MG PO Daily June 17, 2024 12:00am Start: 11-18-2023 End: 05-04-2024 take 1 tablet by mouth once daily Sitagliptin Phosphate Discontinued 50 MG PO Daily November 18, 2023 1:00am May 04, 2024 1:15pm FreeTextSi tablet Orally Once a day; Note: Source Status: Taking; Provider: Gaye Dietrich ( ) spironolactone 50 mg oral tablet (8 sources) Aldosterone Antagonist take 1 tablet by mouth once daily spironolactone (Aldactone) 50 MG tablet Take 1 tablet by mouth Daily Active take 1 tablet by [facility] every twenty-four hours Spironolactone 25 MG 1 tablet Orally Onc e a day Not-Taking tamsulosin hydrochloride 0.4 mg oral capsule (20 sources) alpha-Adrenergic Estuardo Start: 10-31-2023 End: 03-02-2024 take 1 capsule by mouth once daily tamsulosin (FLOMAX) 0.4 mg capsule Take 1 capsule (0.4 mg total) by mouth nightly. 10/31/2023 Active Start: 03-07-2023 take 1 capsule by [facility] every twenty-four hours Flomax 0.4 MG 1 capsule Orally Once a day for 30 days Feb, Active take 1 capsule by [facility] every twenty-four hours in the morning tamsulosin (Flomax) 0.4 MG 24 hr capsule Take 0.4 mg by mouth in the morning. Active Trelegy Ellipta 100-62.5-25 MCG/INH (2 sources) take 1 puff(s) by inhalation once daily Trelegy Ellipta 100-62.5-25 MCG/INH 1 puff Inhalation Once a day Active Vit C,P-Hu-Fqvxn-Lutein-Z eaxan (Preservision Areds-2) 250-90-40-1 mg capsule (5 sources) Start: 11-18-2023 Vit C,F-Tk-Lacuv-Lutein-Kathy susana (Preservision Areds-2) 250-90-40-1 mg capsule Active 1 TAB PO Twice daily November 18, 2023 1:00am vitamin b12 1 mg oral tablet (14 sources) Vitamin B12 Start: 05-09-2021 take 1 tablet by mouth once daily cyanocobalamin 1000 MCG tablet Take 1 tablet (1,000 mcg total) by mouth daily. 30 tablet 05/09/2021 Active Vitamin B12 1000 MCG (9 [...] SURVEILLANCE] Onset: 12-29-2022 Episodic Chronic kidney disease (20 sources) Chronic renal failure; Translations: [Chronic kidney disease, unspecified] Onset: 05-05-2021 10-30-2023 Chronic Chronic kidney disease (12 sources) Chronic kidney disease; Translations: [CHRONIC KIDNEY DISEASE STAGE 3B] Onset: 05-05-2021 Resolved: 04-02-2022 Chronic obstructive pulmonary disease and bronchiectasis (10 sources) Chronic obstructive lung disease; Translations: [Chronic obstructive pulmonary disease, unspecified] Onset: 10-30-2023 10-30-2023 Chronic Congestive heart failure; nonhypertensive (18 sources) Chronic diastolic (congestive) heart failure; Translations: [Chronic heart failure co-occurrent with normal ejection fraction] Onset: 04-08-2022 Chronic Coronary atherosclerosis and other heart disease (12 sources) Coronary arteriosclerosis; Translations: [Atherosclerotic heart disease of [place] coronary artery without angina pectoris] Onset: 10-30-2023 10-30-2023 Chronic Deficiency and other anemia (16 sources) Anemia, unspecified; Translations: [Anemia, unspecified] Onset: 01-22-2022 Resolved: 04-02-2022 Episodic Diabetes mellitus with complications (20 sources) Type 2 diabetes mellitus with other diabetic kidney complication; Translations: [Type 2 diabetes mellitus] Onset: 04-08-2017 Chronic Disorders of lipid metabolism (19 sources) Mixed hyperlipidemia; Translations: [Dyslipidemia] Onset: 12-29-2022 10-30-2023 Chronic Esophageal disorders (12 sources) Gastroesophageal reflux disease without esophagitis; Translations: [Gastro-esophageal reflux disease without esophagitis] Onset: 10-30-2023 10-30-2023 Chronic Essential hypertension (20 sources) Essential hypertension; Translations: [Essential (primary) hypertension] Onset: 04-08-2017 Resolved: 04-02-2022 Chronic Fluid and electrolyte disorders (12 sources) Dehydration; Translations: [Hypervolemia] Onset: 02-29-2024 11-14-2023 Episodic Heart valve disorders (18 sources) Nonrheumatic aortic (valve) stenosis; Translations: [Aortic stenosis, non-rheumatic ] Onset: 03-08-2022 Chronic Hyperplasia of prostate (16 sources) Lower urinary tract symptoms due to [...] source) Weakness; Translations: [Weakness] Onset: 03-09-2024 Episodic Nausea and vomiting (2 sources) Vomiting Onset: 02-29-2024 Episodic Occlusion or stenosis of precerebral arteries (20 sources) Occlusion and stenosis of left carotid artery; Translations: [Occlusion and stenosis of right carotid artery] Onset: 12-18-2023 03-15-2024 Chronic Osteoarthritis (20 sources) Bilateral shoulder osteoarthritis; Translations: [Primary osteoarthritis, [...] Episodic Other ear and sense organ disorders (3 sources) Chronic eczema of external auditory canal; Translations: [Other otitis externa, bilateral] Onset: 10-15-2018 10-15-2018 Chronic Other ear and sense organ disorders (2 sources) Bilateral hearing loss 08-20-2024 Chronic Other ear and sense organ disorders (8 sources) Bilateral hearing loss; Translations: [Impacted cerumen, bilateral] Onset: 08-20-2024 08-20-2024 Episodic Other ear and sense organ disorders (2 sources) Impacted cerumen in left ear; Translations: [Impacted cerumen, left ear] 08-25-2024 Episodic Other endocrine disorders (5 sources) Hyperparathyroidism; Translations: [Hyperparathyroidism, unspecified] 11-18-2023 Chronic Other endocrine disorders (5 sources) Hyperparathyroidism, unspecified; Translations: [Hyperparathyroidism, unspecified] 05-04-2024 Chronic Other liver diseases (12 sources) Cirrhosis of liver; Translations: [Unspecified cirrhosis of liver] Onset: 03-15-2024 06-17-2024 Chronic Other liver diseases (5 sources) Unspecified cirrhosis of liver; Translations: [Cirrhosis of liver without mention of alcohol] Onset: 06-17-2024 06-17-2024 Chronic Other liver diseases (1 source) Fatty (change of) liver, not elsewhere classified; Translations: [Fatty (change of) liver, not elsewhere classified] Onset: 06-24-2024 Chronic Other nervous system disorders (3 sources) Peripheral nerve disease ; Translations: [Polyneuropathy, unspecified] Onset: 05-05-2021 05-05-2021 Chronic Other nutritional; endocrine; and metabolic disorders (12 sources) Hypocalcemia; Translations: [Hypocalcemia] 11-14-2023 Chronic Other nutritional; endocrine; and metabolic disorders (11 sources) Hypocalcemia; Translations: [Hypocalcemia] Onset: 01-22-2022 Resolved: 04-02-2022 Chronic Other nutritional; endocrine; and metabolic disorders (9 sources) Hypomagnesemia; Translations: [Hypomagnesemia] 11-14-2023 Chronic Other nutritional; endocrine; and metabolic disorders (9 sources) Hypomagnesemia; Translations: [Disorders of magnesium metabolism] Onset: 11-15-2022 Chronic Other nutritional; endocrine; and metabolic disorders (5 sources) Hyperuricemia; Translations: [Hyperuricemia without signs of inflammatory arthritis and tophaceous disease] 11-18-2023 Episodic Other nutritional; endocrine; and metabolic disorders (5 sources) Hyperuricemia without signs of inflammatory arthritis and tophaceous disease; Translations: [Other abnormal blood chemistry] 05-04-2024 Episodic Peripheral and visceral atherosclerosis (20 sources) Peripheral vascular disease; Translations: [Peripheral vascular disease, unspecified] Onset: 06-11-2021 10-30-2023 Chronic Residual codes; unclassified (7 sources) Localized edema; Translations: [LOCALIZED EDEMA] Onset: 01-14-2022 Resolved: 04-02-2022 Episodic Residual codes; unclassified (6 sources) Other specified postprocedural states; Translations: [Other postprocedural status] Onset: 03-11-2024 05-04-2024 Episodic Unclassified (1 source) Carotid stenosis, asymptomatic, left [I65.22] Onset: 01-27-2024 Unclassified (1 source) Carotid Artery Disease Onset: 12-25-2023 Unclassified (1 source) Bilateral Carotid Bruits Onset: 12-25-2023 Past or Other Problems Problem Classification Problem Date Documented Da te Episodic/Chronic Cardiac dysrhythmias (4 sources) Palpitations; Translations: [PALPITATIONS] Onset: 3 Episodic Deficiency and other anemia (8 sources) Anemia; Translations: [Anemia, unspecified] Onset: 1 05-06-2021 Episodic Deficiency and other anemia (3 sources) Iron deficiency anemia; Translations: [Iron deficiency anemia, unspecified] Onset: 1 05-06-2021 Episodic Gastrointestinal hemorrhage (3 sources) Melena; Translations: [Melena] Onset: 1 05-06-2021 Episodic Mood disorders (1 source) Mood disorders Onset: 4 02-11-2024 Mycoses (12 sources) Candidiasis of skin; Translations: [Candidiasis of skin and nail] Onset: 4 10-30-2023 Episodic Noninfectious gastroenteritis (9 sources) Noninfective gastroenteritis and colitis, unspecified; Translations: [Gastroenteritis] Onset: 4 Resolved: 4 04-29-2024 Episodic Nutritional deficiencies (19 sources) Iron deficiency; Translations: [Cobalamin deficiency] Onset: 1 Resolved: 2 Episodic Other circulatory disease (3 sources) Carotid bruit; Translations: [Other specified symptoms and signs involving the circulatory and respiratory systems] Onset: 1 05-05-2021 Episodic Other circulatory disease (2 sources) Other specified symptoms and signs involving the circulatory and respiratory systems; Translations: [Other specified symptoms and signs involving the circulatory and respiratory systems] Onset: 1 Episodic Other diseases of veins and lymphatics (13 sources) Venous insufficiency of leg; Translations: [Venous insufficiency (chronic) (peripheral)] Onset: 0 10-30-2023 Episodic Other ear and sense organ disorders (3 sources) Impacted cerumen of bilateral ears; Translations: [Impacted cerumen, bilateral] Onset: 8 10-15-2017 Episodic Phlebitis; thrombophlebitis and thromboembolism (8 sources) Phlebitis and thrombophlebitis of superficial vessels of left lower extremity; Translations: [Phlebitis and thrombophlebitis of superficial vessels of right lower extremity] Onset: 2 Episodic Syncope (3 sources) Syncope; Translations: [Syncope and collapse] Onset: 1 05-06-2021 Episodic Varicose veins of lower extremity (4 sources) Varicose veins of bilateral lower extremities with pain; Translations: [VARICOSE VNS REYNA LOW EXTREM W/PAIN] Onset: 2 Episodic Results Test Name Value Interpretation Reference Range Facility Office Visiton 09-06-2024 Follow-up visit [id number] Milton Suarez 1935 M Date Provider Department Center 09/06/2024 271-[facility]ON[facility] Family History Problem Relation Age of Onset No Known Problems Mother No Known Problems Father Family Status - Relation Status Age at Mother Father Level of Service:76223 [place] OFFICE/OUTPATIENT ESTABLISHED LOW MDM 20 MIN Normal [facility] liver 07-02-2024 liver [facility] Main [address] [address] Ultrasound Report Signed Patient: Carlo Suarez MR#: [id number] : 1935 Acct:[id number] Age/Sex: 88 / M ADM Date: 07/02/24 Loc: Room: Type: [facility] Attending Dr: Andry Morales MD Ordering Provider: Andry Morales MD Date of Service: 07/02/24 US/US liver: K74.0,D649 Copies to: Andry Morales MD LIMITED ABDOMINAL ULTRASOUND: CLINICAL HISTORY: Cirrhosis. Anemia. COMPARISON: None TECHNIQUE: Grayscale and color Doppler images of the right upper quadrant organs were obtained. FINDINGS: Pancreas: Visualized portions appear unremarkable. Liver: Cirrhotic liver. No focal mass or intrahepatic ductal dilatation. Hepatopedal flow is seen within the portal vein. Gallbladder: Unremarkable. CBD: 6.5 mm. 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 Impression dictated by: Tl Jones Jr., D.O.07/02/2024 3:54 PM Dictation Location: [place] [address] Tech: Karen Collier Transcribed By: [facility] 07/02/24 1554 Dictated By: Tl Jones Jr, DO 07/02/24 1553 Signed By: 07/02/24 155 Normal [facility] AFP Tumor Marker, Serumon AFP Tumor Marker, Serum 3.0 ng/mL Normal 0.0-6.4 [facility] Comment on above: Result Comment: [facility] [employer] Electrochemiluminescence Immunoassay (ECLIA) Values obtained with different assay methods or kits cannot be used interchangeably. Results cannot be interpreted as absolute evidence of the presence or absence of malignant disease. This test is not interpretable in females. Performed at: [address] [id number] Sales Representatives: Alonzo Haro PhD, Phone: [phone] Performed By: #### H AABT, MITOM2, HCV RX PCR, HBSAB, CERULOP, IGG, L-K MICRO, HEMOCHROM, HBCAB, ALPHA PHEN, HCBIGM, POLO, SMAB, HBSAG, HAAB, AFPTM #### [facility] , #### JAS, PT, CMP #### [address] POLO Antinuclear Antibodieson 06-17-2024 Antinuclear Abs, IFA Negative Normal . [facility] Comment on above: Result Comment: Nega tive <1:80 Borderline 1:80 Positive >1:80 ICAP nomenclature: AC-0 For more information about Hep-2 cell patterns use ANApatterns.org, the official website for the International Consensus on Antinuclear Antibody (POLO) Patterns (ICAP). Performed at: - [place] [address] Sales Representatives: Alonzo Haro PhD, Phone: [phone] Performed By: #### H AABT, MITOM2, HCV RX PCR, HBSAB, CERULOP, IGG, L-K MICRO, HEMOCHROM, HBCAB, ALPHA PHEN, HCBIGM, POLO, SMAB, HBSAG, HAAB, AFPTM #### [facility] , #### JAS, PT, CMP #### [place] [id number] [facility] Actin smooth muscle IgG Ab [ Units/volume] in SerumOrdered By: Imad Asaad on 06-17-2024 Actin smooth muscle IgG Qn (S) 12 Units 0-19 [facility] Comment on above: Negative 0 - 19 Weak positive 20 - 30 Moderate to strong positive >30 Actin Antibodies are found in 52-85% of patients with autoimmune hepatitis or chronic active hepatitis and in 22% of patients with primary biliary cirrhosis. Alanine aminotransferase [En zymatic activity/volume] in Serum or PlasmaOrdered By: Imad Asaad on 06-17-2024 ALT [Catalytic activity/Vol] 33 U/L Normal 7-52 [facility] Comment on above: Performed By: #### H AABT, MITOM2, HCV RX PCR, HBSAB, CERULOP, IGG, L-K MICRO, HEMOCHROM, HBCAB, ALPHA PHEN, HCBIGM, POLO, SMAB, HBSAG, HAAB, AFPTM #### [facility] , #### JAS, PT, CMP #### [address] Albumin [Mass/volume] in Ser um or Plasma by Bromocresol green (BCG) dye binding methoOrdered By: Imad Asaad on 06-17-2024 Albumin BCG dye [Mass/Vol] 4.2 g/dL 3.5-5.7 [facility] Alkaline phosphatase [Enzyma tic activity/volume] in Serum or PlasmaOrdered By: Imad Asaad on 06-17-2024 ALP [Catalytic activity/Vol] 194 U/L High 34-104 [facility] Comment on above: Performed By: #### H AABT, MITOM2, HCV RX PCR, HBSAB, CERULOP, IGG, L-K MICRO, HEMOCHROM, HBCAB, ALPHA PHEN, HCBIGM, POLO, SMAB, HBSAG, HAAB, AFPTM #### [facility] , #### JAS, PT, CMP #### [address] Knhjj-6-Iesvezhestt Phenotyp pricilla 06-17-2024 Alpha 1 Anti-Trypsin 126 mg/dL Normal 101-187 [facility] Comment on above: Performed By: #### H AABT, MITOM2, HCV RX PCR, HBSAB, CERULOP, IGG, L-K MICRO, HEMOCHROM, HBCAB, ALPHA PHEN, HCBIGM, POLO, SMAB, HBSAG, HAAB, AFPTM #### [facility] , #### JAS, PT, CMP #### [address] Phenotype (P1) MZ Normal . [facility] Comment on above: Result Comment: MM Phenotype is considered to be normal , producing normal serum levels of eebby-7-fvoweuqs inhibitor and not associated with clinical disease. Associated A1A total serum levels in other phenotypes and their incidence in the general population are shown in the table below. Phenotype Population % function A-1-AT Conc.* Incidence % compared to MM (Typical Range) MM 86.5% 100% (96 - 189) MS 8.0% 86% (83 - 161) MZ 3.9% 61% (60 - 111) FM 0.4% 100% (93 - 191) SZ 0.3% 41% (42 - 75) SS 0.1% 64% (62 - 119) ZZ 0.05% 19% (16 - 38) FS 0.05% 70% (70 - 128) FZ Unknown 46% (44 - 88) FF Unknown Unknown *A-1-AT concentration in the homozygous MM phenotype is taken as the reference normal. Percent deficiency in each phenotype is reported relative to this reference. Ranges used to confirm phenotype. Performed at: [address] [id number] Sales Representatives: Alonzo Haro PhD, Phone: [phone] Performed at: [address] [id number] Sales Representatives: Rachell Rico MD, Phone: [phone] Performed By: #### H AABT, MITOM2, HCV RX PCR, HBSAB, CERULOP, IGG, L-K MICRO, HEMOCHROM, HBCAB, ALPHA PHEN, HCBIGM, POLO, SMAB, HBSAG, HAAB, AFPTM #### [facility] , #### JAS, PT, CMP #### [facility] [address] [place] [address] Aspartate aminotransferase [ Enzymatic activity/volume] in Serum or PlasmaOrdered By: Andry Morales on 06-17-2024 AST [Catalytic activity/Vol] 41 U/L High 13-39 [facility] Comment on above: Performed By: #### H AABT, MITOM2, HCV RX PCR, HBSAB, CERULOP, IGG, L-K MICRO, HEMOCHROM, HBCAB, ALPHA PHEN, HCBIGM, POLO, SMAB, HBSAG, HAAB, AFPTM #### [facility] , #### JAS, PT, CMP #### [facility] [address] [place] [id number] [facility] Bilirubin.total [Mass/volume ] in Serum or PlasmaOrdered By: Andry Morales on 06-17-2024 Bilirubin [Mass/Vol] 0.9 mg/dL Normal 0.3-1.0 [facility] Comment on above: Performed By: #### H AABT, MITOM2, HCV RX PCR, HBSAB, CERULOP, IGG, L-K MICRO, HEMOCHROM, HBCAB, ALPHA PHEN, HCBIGM, POLO, SMAB, HBSAG, HAAB, AFPTM #### [facility] , #### JAS, PT, CMP #### [facility] [address] [place] [id number] [facility] Blood or tissue HFE gene mut ations identification by molecular genetics methodOrdered By: Andry Morales on 06-17-2024 HFE gene targeted mutation analysis [employer] Nom (Bld/Tiss) Comment . [facility] Comment on above: Result:c.845G>A (p.C ez898Zlt) - Not Detectedc.187C>G (p.Mrt16Lui) - Not Detectedc.193A>T (p.Kop83Wno) - Not DetectedNot associated with increased risk to develop clinicalsymptoms of Hereditary Hemochromatosis. In symptomaticindividuals, other causes of iron overload should beevaluated. See Additional Information and Comments.Additional Clinical Information:Hereditary hemochromatosis (HFE related) is an autosomalrecessive iron storage disorder. Patients may have agenetic diagnosis of hereditary hemochromatosis and nevershow clinical symptoms. Clinical symptoms typically appearbetween 40 to 60 years in males and after menopause infemales. Signs and symptoms may include organ damage,primarily in the liver, risk for hepatocellularcarcinoma, diabetes, and heart disease due to ironaccumulation. Life expectancy may be decreased inindividuals who develop cirrhosis. Treatment forclinically symptomatic individuals may includetherapeutic phlebotomy. Liver transplant may be used totreat end stage liver failure. For preventive care,monitoring for iron overload is recommended for patientswho are homozygous for c.845G>A (p.Vzx504Nkv) and have yetto experience clinical symptoms.Comments:The most common HFE variants associated with hereditaryhemochromatosis are c.845G>A (p.Swl528Zmg), c.187C>G(p.Fpm31Cpc), c.193A>T (p.Xcx06Sgk). While patientshomozygous for c.845G>A (p.Kls381Icz) are the most likelyto present clinical symptoms, less than 10% developclinically significant iron overload with tissue and organdamage.Genetic counseling is recommended to discuss the potentialclinical implications of positive results, as well asrecommendations for testing family members.Genetic Coordinators are available for health careproviders to discuss results at [phone]).Test Details:Three variants analyzed:c.845G>A (p.Ddy391Meq), commonly referred to as C282Yc.187C>G (p.Tav91Rqb), commonly referred to as H63Dc.193A>T (p.Ezl46Qvq), commonly referred to as Y77ALgvxtdk/Limitations:DNA Analysis of the HFE gene (NM_000410.4) was performedby PCR amplification followed by restriction enzymedigestion analyses. Results must be combined with clinicalinformation for the most accurate interpretation. Molecular-based testing is highly accurate, but as in any laboratorytest, diagnostic errors may occur. False positive or falsenegative results may occur for reasons that include geneticvariants, blood transfusions, bone marrow transplantation,somatic or tissue-specific mosaicism, mislabeled samples,or erroneous representation of family relationships.This test was developed and its performancecharacteristics determined by [employer] It has not beencleared or approved by the Food and Drug Administration.References:Heriberto BR, Scott PC, Lyle KV, Darrell LW, Abdias ;[employer] Liver [employer].Diagnosis and management of hemochromatosis: 2011 practiceguideline by the [place] [employer] for the Study ofLiver Diseases. Hepatology. 2011 Mar;54(1):328-43. doi:10.1002/hep.40892. PMID: 41332514; PMCID: KYS6592515.Doris G, Jose P, Desiree DW, Kourtney H, Sue O,Teofilo S, Enrique Cavanaugh Keeney S. EMQN best practiceguidelines for the molecular genetic diagnosis ofhereditary hemochromatosis (HH). Eur J Hum Mariah. 2016Apr;24(4):479-00. doi: 10.1038/ejhg.2015.128. Epub 2014. PMID: 95962438; PMCID: XQC4580772. Calcium [Mass/volume] in Ser um or PlasmaOrdered By: Imad Asaad on 06-17-2024 Calcium [Mass/Vol] 10.1 mg/dL Normal 8.6-10.3 [facility] Comment on above: Performed By: #### H AABT, MITOM2, HCV RX PCR, HBSAB, CERULOP, IGG, L-K MICRO, HEMOCHROM, HBCAB, ALPHA PHEN, HCBIGM, POLO, SMAB, HBSAG, HAAB, AFPTM #### [facility] , #### JAS, PT, CMP #### [facility] [address] [place] [address] Carbon dioxide, total [Moles /volume] in Serum or PlasmaOrdered By: Imad Asaad on 06-17-2024 CO2 [Moles/Vol] 29.4 mmol/L Normal 21.0-31.0 [facility] Comment on above: Performed By: #### H AABT, MITOM2, HCV RX PCR, HBSAB, CERULOP, IGG, L-K MICRO, HEMOCHROM, HBCAB, ALPHA PHEN, HCBIGM, POLO, SMAB, HBSAG, HAAB, AFPTM #### [facility] , #### JAS, PT, CMP #### [facility] [address] [place] [address] Ceruloplasminon 06-17-2024 Ceruloplasmin 38.7 mg/dL High 16.0-31.0 [facility] Comment on above: Result Comment: Perf ormed at: CB - [facility] [address] [id number] Sales Representatives: Alonzo Haro PhD, Phone: [phone] PERFORMED BY: [place] [address] PATHOLOGIST MACHINE SIGN WRITER GAGAN CAMEJO M.D. Performed By: #### H AABT, MITOM2, HCV RX PCR, HBSAB, CERULOP, IGG, L-K MICRO, HEMOCHROM, HBCAB, ALPHA PHEN, HCBIGM, POLO, SMAB, HBSAG, HAAB, AFPTM #### [facility] , #### JAS, PT, CMP #### [address] Chloride [Moles/volume] in S wicho or PlasmaOrdered By: Andry Morales on 06-17-2024 Chloride [Moles/Vol] 98 mmol/L Normal 98-107 [facility] Comment on above: Performed By: #### H AABT, MITOM2, HCV RX PCR, HBSAB, CERULOP, IGG, L-K MICRO, HEMOCHROM, HBCAB, ALPHA PHEN, HCBIGM, POLO, SMAB, HBSAG, HAAB, AFPTM #### [facility] , #### JAS, PT, CMP #### [facility] [address] [place] [address] Comprehensive Metabolic Pane deacon 06-17-2024 Albumin [Mass/Vol] 4.2 g/dL Normal 3.5-5.7 [facility] Comment on above: Performed By: #### H AABT, MITOM2, HCV RX PCR, HBSAB, CERULOP, IGG, L-K MICRO, HEMOCHROM, HBCAB, ALPHA PHEN, HCBIGM, POLO, SMAB, HBSAG, HAAB, AFPTM #### [facility] , #### JAS, PT, CMP #### [facility] [address] [place] [address] GFR/1.73 sq M.predicted MDRD (S/P/Bld) [Vol rate/Area] 36.466 mL/min/{1.73_m2} Normal [facility] Comment on above: Performed By: #### H AABT, MITOM2, HCV RX PCR, HBSAB, CERULOP, IGG, L-K MICRO, HEMOCHROM, HBCAB, ALPHA PHEN, HCBIGM, POLO, SMAB, HBSAG, HAAB, AFPTM #### [facility] , #### JAS, PT, CMP #### [facility] [address] [place] [address] [place] Creatinine [Mass/volume] in Serum or PlasmaOrdered By: Imad Asaad on 06-17-2024 Creatinine [Mass/Vol] 1.78 mg/dL High 0.70-1.30 [facility] Comment on above: Performed By: #### H AABT, MITOM2, HCV RX PCR, HBSAB, CERULOP, IGG, L-K MICRO, HEMOCHROM, HBCAB, ALPHA PHEN, HCBIGM, POLO, SMAB, HBSAG, HAAB, AFPTM #### [facility] , #### JAS, PT, CMP #### [facility] [address] [place] [address] [place] Ferritin [Mass/volume] in Se rum or PlasmaOrdered By: Imad Asaad on 06-17-2024 Ferritin [Mass/Vol] 440.7 ng/mL High 23.9-336.2 [facility] Comment on above: Result Comment: PERF ORMED BY: [place] [address] PATHOLOGIST MACHINE SIGN WRITER GAGAN CAMEJO M.D. Performed By: #### H AABT, MITOM2, HCV RX PCR, HBSAB, CERULOP, IGG, L-K MICRO, HEMOCHROM, HBCAB, ALPHA PHEN, HCBIGM, POLO, SMAB, HBSAG, HAAB, AFPTM #### [facility] , #### JAS, PT, CMP #### [facility] [address] [place] [address] [place] Glucose [Mass/volume] in Ser um or PlasmaOrdered By: Imad Asaad on 06-17-2024 Glucose [Mass/Vol] 219 mg/dL High 70-100 [facility] Comment on above: ADA recommended refe rence rangeRandom Glucose Reference Range is dependent on time and content of last meal. Glucose of more than 200 mg/dL in a nonstressed, ambulatory subject supports the diagnosis of Diabetes Mellitus. Result Comment: [facility] Glucose Reference Range is dependent on time and content of last meal. Glucose of more than 200 mg/dL in a nonstressed, ambulatory subject supports the diagnosis of Diabetes Mellitus. ADA recommended reference range Performed By: #### H AABT, MITOM2, HCV RX PCR, HBSAB, CERULOP, IGG, L-K MICRO, HEMOCHROM, HBCAB, ALPHA PHEN, HCBIGM, POLO, SMAB, HBSAG, HAAB, AFPTM #### [facility] , #### JAS, PT, CMP #### [address] Hep C Ab wRfx to Qnt PCRon 1 Hepatitis C Virus Antibody Non-Reactive Normal Non Reactive [facility] Comment on above: Performed By: #### H AABT, MITOM2, HCV RX PCR, HBSAB, CERULOP, IGG, L-K MICRO, HEMOCHROM, HBCAB, ALPHA PHEN, HCBIGM, POLO, SMAB, HBSAG, HAAB, AFPTM #### [facility] , #### JAS, PT, CMP #### [address] Interpretation Hepatitis C Comment Normal . [facility] Comment on above: Result Comment: Not infected with HCV unless early or acute infection is suspected (which may be delayed in an immunocompromised individual), or other evidence exists to indicate HCV infection. Performed By: #### H AABT, MITOM2, HCV RX PCR, HBSAB, CERULOP, IGG, L-K MICRO, HEMOCHROM, HBCAB, ALPHA PHEN, HCBIGM, POLO, SMAB, HBSAG, HAAB, AFPTM #### [facility] , #### JAS, PT, CMP #### [address] Hepatitis A Antibody IgMon 1 Hepatitis A Antibody IgM Negative Normal Negative [facility] Comment on above: Result Comment: A ne gative anti-HAV IgM result suggests no recent or current HAV infection. Performed By: #### H AABT, MITOM2, HCV RX PCR, HBSAB, CERULOP, IGG, L-K MICRO, HEMOCHROM, HBCAB, ALPHA PHEN, HCBIGM, POLO, SMAB, HBSAG, HAAB, AFPTM #### [facility] , #### JAS, PT, CMP #### [facility] [address] [place] [address] Hepatitis A Antibody Totalon 06-17-2024 Hepatitis A Antibody Total Negative Normal Negative [facility] Comment on above: Result Comment: Comm ent: The HAV total antibody assay detects both IgG and IgM but does not differentiate between them. A negative result suggests susceptibility to infection. A positive result could be due to vaccination, previously resolved infection or active infection. Testing for HAV IgM should be performed if active HAV infection is suspected. [facility] offers profiles that will automatically reflex positive HAV total antibody results to IgM (e.g., panel #[id number] HAV Antibody w/ Rfx). Performed By: #### H AABT, MITOM2, HCV RX PCR, HBSAB, CERULOP, IGG, L-K MICRO, HEMOCHROM, HBCAB, ALPHA PHEN, HCBIGM, POLO, SMAB, HBSAG, HAAB, AFPTM #### [facility] , #### JAS, PT, CMP #### [address] Hepatitis A virus Ab [Presen ce] in Serum by ImmunoassayOrdered By: Andry Morales on 06-17-2024 HAV Ab IA Ql (S) Negative Negative [facility] Comment on above: Comment: The HAV tot al antibody assay detects both IgG andIgM but does not differentiate between them. A negativeresult suggests susceptibility to infection. A positiveresult could be due to vaccination, previously resolvedinfection or active infection. Testing for HAV IgM shouldbe performed if active HAV infection is suspected. [facility] that will automatically reflex positive HAVtotal antibody results to IgM (e.g., panel #[id number] HAVAntibody w/ Rfx). Hepatitis B Core Antibodyon 06-17-2024 Hepatitis B Core Antibody Negative Normal Negative [facility] Comment on above: Performed By: #### H AABT, MITOM2, HCV RX PCR, HBSAB, CERULOP, IGG, L-K MICRO, HEMOCHROM, HBCAB, ALPHA PHEN, HCBIGM, POLO, SMAB, HBSAG, HAAB, AFPTM #### [facility] , #### JAS, PT, CMP #### [address] Hepatitis B Core Antibody Ig Mon 06-17-2024 Hepatitis B Core Antibody IgM Negative Normal Negative [facility] Comment on above: Result Comment: Perf ormed at: - [facility] [address] [id number] Sales Representatives: Alonzo Haro PhD, Phone: [phone] Performed By: #### H AABT, MITOM2, HCV RX PCR, HBSAB, CERULOP, IGG, L-K MICRO, HEMOCHROM, HBCAB, ALPHA PHEN, HCBIGM, POLO, SMAB, HBSAG, HAAB, AFPTM #### [facility] , #### JAS, PT, CMP #### [address] Hepatitis B Surface Antibody on 06-17-2024 Hepatitis B Surface Antibody Non-Reactive Normal . [facility] Comment on above: Result Comment: Non Reactive: Not immune to HBV infection. Equivocal: Unable to determine if anti-HBs is present at levels consistent with immunity. Reactive: Anti-HBs concentration detected at greater than 10 mIU/mL. Individual is considered to be immune to infection with HBV. Performed By: #### H AABT, MITOM2, HCV RX PCR, HBSAB, CERULOP, IGG, L-K MICRO, HEMOCHROM, HBCAB, ALPHA PHEN, HCBIGM, POLO, SMAB, HBSAG, HAAB, AFPTM #### [facility] , #### JAS, PT, CMP #### [address] Hepatitis B Surface Antigeno n 06-17-2024 HBsAg Screen Negative Normal Negative [facility] Comment on above: Result Comment: PERF ORMED BY: [facility] [address] [place] [address] PATHOLOGIST MACHINE SIGN WRITER GAGAN CAMEJO M.D. Performed By: #### H AABT, MITOM2, HCV RX PCR, HBSAB, CERULOP, IGG, L-K MICRO, HEMOCHROM, HBCAB, ALPHA PHEN, HCBIGM, POLO, SMAB, HBSAG, HAAB, AFPTM #### [facility] , #### JAS, PT, CMP #### [facility] [address] Hepatitis B virus surface Ab [Presence] in SerumOrdered By: Imad Asaad on 06-17-2024 HBV surface Ab Ql (S) Non-Reactive . [facility] Comment on above: Non Reactive: Not im mune to HBV infection. Equivocal: Unable to determine if anti-HBs is present at levels consistent with immunity. Reactive: Anti-HBs concentration detected at greater than 10 mIU/mL. Individual is considered to be immune to infection with HBV. Hepatitis B virus surface Ag [Presence] in Serum or Plasma by ImmunoassayOrdered By: Imad Asaad on 06-17-2024 HBV surface Ag IA Ql Negative Negative [facility] Hepatitis C virus IgG Ab [Pr esence] in Serum or Plasma by ImmunoassayOrdered By: Imad Asaad on 06-17-2024 HCV IgG IA Ql Non-Reactive Non Reactive [facility] Hereditary Hemochromatosis,D NAon 06-17-2024 Hereditary Hemochromatosis Comment Normal . [facility] Comment on above: Result Comment: Resu lt: c.845G>A (p.Vpx181Ooj) - Not Detected c.187C>G (p.Afm44Thi) - Not Detected c.193A>T (p.Akt42Wte) - Not Detected Not associated with increased risk to develop clinical symptoms of Hereditary Hemochromatosis. In symptomatic individuals, other causes of iron overload should be evaluated. See Additional Information and Comments. Additional Clinical Information: Hereditary hemochromatosis (HFE related) is an autosomal recessive iron storage disorder. Patients may have a genetic diagnosis of hereditary hemochromatosis and never show clinical symptoms. Clinical symptoms typically appear between 40 to 60 years in males and after menopause in females. Signs and symptoms may include organ damage, primarily in the liver, risk for hepatocellular carcinoma, diabetes, and heart disease due to iron accumulation. Life expectancy may be decreased in individuals who develop cirrhosis. Treatment for clinically symptomatic individuals may include therapeutic phlebotomy. Liver transplant may be used to treat end stage liver failure. For preventive care, monitoring for iron overload is recommended for patients who are homozygous for c.845G>A (p.Pac234Wtu) and have yet to experience clinical symptoms. Comments: The most common HFE variants associated with hereditary hemochromatosis are c.845G>A (p.Rfk266Obi), c.187C>G (p.Euv35Zex), c.193A>T (p.Fsj83Gcp). While patients homozygous for c.845G>A (p.Njr946Vzm) are the most likely to present clinical symptoms, less than 10% develop clinically significant iron overload with tissue and organ damage. Genetic counseling is recommended to discuss the potential clinical implications of positive results, as well as recommendations for testing family members. Genetic Coordinators are available for health care providers to discuss results at [phone] Test Details: Three variants analyzed: c.845G>A (p.Osk405Cve), commonly referred to as C282Y c.187C>G (p.Yzq40Lzr), commonly referred to as H63D c.193A>T (p.Zng31Pre), commonly referred to as S65C Methods/Limitations: DNA Analysis of the HFE gene (NM_000410.4) was performed by PCR amplification followed by restriction enzyme digestion analyses. Results must be combined with clinical information for the most accurate interpretation. Molecular- based testing is highly accurate, but as in any laboratory test, diagnostic errors may occur. False positive or false negative results may occur for reasons that include genetic variants, blood transfusions, bone marrow transplantation, somatic or tissue-specific mosaicism, mislabeled samples, or erroneous representation of family relationships. This test was developed and its performance characteristics determined by [employer] It has not been cleared or approved by the Food and Drug Administration. References: Heriberto BR, Scott PC, Lyle KV, Darrell LW, Abdias ; [place] [employer]. Diagnosis and management of hemochromatosis: 2011 practice guideline by the [place] [employer] Liver Diseases. Hepatology. 2010;54(1):328-43. doi: 10.1002/hep.70321. PMID: 79815730; PMCID: TAC2877845. Doris G, Jose P, Desiree ORTIZ, Kourtney H, Sue O, Teofilo S, Israel I, Enrique M, Gokul S. [facility] best practice guidelines for the molecular genetic diagnosis of hereditary hemochromatosis (HH). Eur J Hum Mariah. 2016 Dec;24(4):479-95. doi: 10.1038/ejhg.2015.128. Epub 2014Mar 22. PMID: 25032033; PMCID: [id number]. Performed By: #### H AABT, MITOM2, HCV RX PCR, HBSAB, CERULOP, IGG, L-K MICRO, HEMOCHROM, HBCAB, ALPHA PHEN, HCBIGM, POLO, SMAB, HBSAG, HAAB, AFPTM #### [facility] , #### JAS, PT, CMP #### [facility] [address] [place] [address] Reviewed by: Comment Normal . [facility] Comment on above: Result Comment: Gwendolyn Darby, PhD Director, Molecular Genetics Performed at: - [facility] [place], [place] [id number] Sales Representatives: Marc Ervin [facility], Phone: [phone] PERFORMED BY: [place] [address] PATHOLOGIST MACHINE SIGN WRITER GAGAN CAMEJO M.D. Performed By: #### H AABT, MITOM2, HCV RX PCR, HBSAB, CERULOP, IGG, L-K MICRO, HEMOCHROM, HBCAB, ALPHA PHEN, HCBIGM, POLO, SMAB, HBSAG, HAAB, AFPTM #### [facility] , #### JAS, PT, CMP #### [facility] [address] [place] [address] INR in Platelet poor plasma by Coagulation assayOrdered By: Andry Morales on 06-17-2024 INR Coag (PPP) [Relative time] 1.1 {INR} Normal [facility] Comment on above: INR Therapeutic Rang e A) Pre- and Peroperative OAT started two weeks before surgery. NOT HIP SURGERY: 1.5 - 2.5 HIP SURGERY: 2 - 3B) Primary and secondary prevention of venous THROMBOSIS: 2 - 3C) Active venous thrombosis, pulmonary embolismand prevention of recurrent venous thrombosis: 2 - 3D) Prevention of arterial thromboembolismincluding patients with mechanical heart valves: 3 - 4.5 Result Comment: INR Therapeutic Range A) Pre- and Peroperative OAT started two weeks before surgery. NOT HIP SURGERY: 1.5 - 2.5 HIP SURGERY: 2 - 3 B) Primary and secondary prevention of venous THROMBOSIS: 2 - 3 C) Active venous thrombosis, pulmonary embolism and prevention of recurrent venous thrombosis: 2 - 3 D) Prevention of arterial thromboembolism including patients with mechanical heart valves: 3 - 4.5 PERFORMED BY: [place] [address] PATHOLOGIST MACHINE SIGN WRITER GAGAN CAMEJO M.D. Performed By: #### H AABT, MITOM2, HCV RX PCR, HBSAB, CERULOP, IGG, L-K MICRO, HEMOCHROM, HBCAB, ALPHA PHEN, HCBIGM, POLO, SMAB, HBSAG, HAAB, AFPTM #### [facility] , #### JAS, PT, CMP #### [facility] [address] [place] [address] IgG [Mass/volume] in Serum o r PlasmaOrdered By: Andry Morales on 06-17-2024 IgG [Mass/Vol] 1951 mg/dL High 603-7143 [facility] Comment on above: Performed at: [place] [address] [id number] Director: Alonzo Haro PhD, Phone: [phone] Immunoglobulin Somel 4 Immunoglobulin G 1951 mg/dL High 603-1763 [facility] Comment on above: Result Comment: Perf ormed at: [facility] - [facility] [address] [id number] Sales Representatives: Alonzo Haro PhD, Phone: [phone] Performed By: #### H AABT, MITOM2, HCV RX PCR, HBSAB, CERULOP, IGG, L-K MICRO, HEMOCHROM, HBCAB, ALPHA PHEN, HCBIGM, POLO, SMAB, HBSAG, HAAB, AFPTM #### [facility] , #### JAS, PT, CMP #### [address] Liver-Kidney Microsomal Abon 06-17-2024 Liver-Kidney Microsomal Ab <1.0 Normal 0.0-20.0 [facility] Comment on above: Result Comment: Nega tive 0.0 - 20.0 Equivocal 20.1 - 24.9 Positive >24.9 LKM type 1 antibodies are detected in patients with autoimmune hepatitis type 2 and in up to 8% of patients with chronic HCV infection. Performed at: [address] [id number] Sales Representatives: Alonzo Haro PhD, Phone: [phone] Performed By: #### H AABT, MITOM2, HCV RX PCR, HBSAB, CERULOP, IGG, L-K MICRO, HEMOCHROM, HBCAB, ALPHA PHEN, HCBIGM, POLO, SMAB, HBSAG, HAAB, AFPTM #### [facility] , #### JAS, PT, CMP #### [address] Mitochondrial (M2) Antibodyo n 06-17-2024 Mitochondrial (M2) Antibody <20.0 Normal 0.0-20.0 [facility] Comment on above: Result Comment: Nega tive 0.0 - 20.0 Equivocal 20.1 - 24.9 Positive >24.9 Mitochondrial (M2) Antibodies are found in 90-96% of patients with primary biliary cirrhosis. Performed at: [facility] [employer] [id number] Sales Representatives: Alonzo Haro PhD, Phone: [phone] Performed By: #### H AABT, MITOM2, HCV RX PCR, HBSAB, CERULOP, IGG, L-K MICRO, HEMOCHROM, HBCAB, ALPHA PHEN, HCBIGM, POLO, SMAB, HBSAG, HAAB, AFPTM #### [facility] , #### JAS, PT, CMP #### [facility] [address] No Panel InformationOrdered By: Andry Morales on 06-17-2024 Estimated GFR (CKD-EPI) 36.466 mL/Min [facility] Hemochromatosis Note Comment . [facility] Comment on above: Lon Ramos hDDirector, Molecular GeneticsPerformed at: TG - [facility] [id number] [place], [place] [id number] Director: Marc Ervin [facility], Phone: [phone] Hepatitis A IgM Antibody Negative Negative [facility] Comment on above: A negative anti-HAV IgM result suggests no recent orcurrent HAV infection. Hepatitis B Core IgM Antibody Negative Negative [facility] Comment on above: Performed at: [facility] - [employer] [address] [id number] Director: Alonzo Haro PhD, Phone: [phone] Hepatitis B Core Total Antibody Negative Negative [facility] Hepatitis C Interpretation Comment . [facility] Comment on above: Not infected with HC V unless early or acute infection issuspected (which may be delayed in an immunocompromisedindividual), or other evidence exists to indicate HCVinfection. Pharmacy Creatinine Clearance (Chem N/A [facility] Potassium [Moles/volume] in Serum or PlasmaOrdered By: Andry Morales on 06-17-2024 Potassium [Moles/Vol] 4.4 mmol/L Normal 3.5-5.1 [facility] Comment on above: Performed By: #### H AABT, MITOM2, HCV RX PCR, HBSAB, CERULOP, IGG, L-K MICRO, HEMOCHROM, HBCAB, ALPHA PHEN, HCBIGM, POLO, SMAB, HBSAG, HAAB, AFPTM #### [facility] , #### JAS, PT, CMP #### [facility] [address] [place] [address] [place] Protein [Mass/volume] in Ser um or PlasmaOrdered By: Andry Morales on 06-17-2024 Protein [Mass/Vol] 8.2 g/dL Normal 6.4-8.9 [facility] Comment on above: Performed By: #### H AABT, MITOM2, HCV RX PCR, HBSAB, CERULOP, IGG, L-K MICRO, HEMOCHROM, HBCAB, ALPHA PHEN, HCBIGM, POLO, SMAB, HBSAG, HAAB, AFPTM #### [facility] , #### JAS, PT, CMP #### [facility] [address] [place] [address] [facility] Prothrombin time (PT)Ordered By: antonia Morales on 06-17-2024 PT Coag (PPP) [Time] 13.0 s High 9.0-12.9 [facility] Comment on above: A hematocrit value g reater than 55% may lead to inaccurate results in coagulation testing. Patients having hematocrit values >55% require a special collection tube for coagulation studies. Please contact the laboratory at [phone] for redraw instructions. Result Comment: A he matocrit value greater than 55% may lead to inaccurate results in coagulation testing. Patients having hematocrit values >55% require a special collection tube for coagulation studies. Please contact the laboratory at [phone] for redraw instructions. Performed By: #### H AABT, MITOM2, HCV RX PCR, HBSAB, CERULOP, IGG, L-K MICRO, HEMOCHROM, HBCAB, ALPHA PHEN, HCBIGM, POLO, SMAB, HBSAG, HAAB, AFPTM #### [facility] , #### JAS, PT, CMP #### [facility] [address] [place] [address] [facility] Serum pbymt-8-hvlyiplhbgy me asurementOrdered By: Andry Morales on 06-17-2024 Alpha 1 antitrypsin [Mass/Vol] 126 mg/dL 101-187 [facility] Serum globulin measurement b y calculation (mass/volume)Ordered By: Andry Morales on 06-17-2024 Globulin (S) [Mass/Vol] 4.0 g/dL [facility] Comment on above: Performed By: #### H AABT, MITOM2, HCV RX PCR, HBSAB, CERULOP, IGG, L-K MICRO, HEMOCHROM, HBCAB, ALPHA PHEN, HCBIGM, POLO, SMAB, HBSAG, HAAB, AFPTM #### [facility] , #### JAS, PT, CMP #### [facility] [address] Serum homogeneous pattern an tinuclear antibody (POLO) titerOrdered By: [facility] on 06-17-2024 Homogenous nuclear Ab pattern (S) [Titer] N/A [facility] Serum mitochondria M2 IgG an tibody assay (units/volume)Ordered By: [facility] on 06-17-2024 Mitochondria M2 IgG Qn (S) <20.0 Units 0.0-20.0 [facility] Comment on above: Negative 0.0 - 20.0 Equivocal 20.1 - 24.9 Positive >24.9Mitochondrial (M2) Antibodies are found in 90-96% ofpatients with primary biliary cirrhosis.Performed at: [facility] [place] [id number] Director: Alonzo Haro PhD, Phone: [phone] Serum nuclear antibody titer Ordered By: [employer] Damian on 06-17-2024 Nuclear Ab (S) [Titer] Negative . [facility] Comment on above: Negative <1:80 Borde rline 1:80 Positive >1:80ICAP nomenclature: AC-0For more information about Hep-2 cell patterns useANApatterns.org, the official website for theInternational Consensus on Antinuclear Antibody (POLO)Patterns (ICAP).Performed at: [facility] [place] [id number] Director: Alonzo Haro PhD, Phone: [phone] Serum or plasma albumin/glob ulin mass ratioOrdered By: [facility] on 06-17-2024 Albumin/Globulin [Mass ratio] 1.1 {ratio} [facility] Comment on above: Performed By: #### H AABT, MITOM2, HCV RX PCR, HBSAB, CERULOP, IGG, L-K MICRO, HEMOCHROM, HBCAB, ALPHA PHEN, HCBIGM, POLO, SMAB, HBSAG, HAAB, AFPTM #### [facility] , #### JAS, PT, CMP #### [address] Serum or plasma alpha 1 anti trypsin phenotyping identification by immunofixationOrdered By: Andry Morales on 06-17-2024 Alpha 1 antitrypsin phenotyping Immunofixation Nom Mz . [facility] Comment on above: MM Phenotype is co nsidered to be normal , producingnormal serum levels of whajf-8-nwxzhbai inhibitor andnot associated with clinical disease. Associated D8Sptlii serum levels in other phenotypes and theirincidence in the general population are shown in thetable below.Phenotype Population % function A-1-AT Conc.* Incidence % compared to MM (Typical Range) MM 86.5% 100% (96 - 189) MS 8.0% 86% (83 - 161) MZ 3.9% 61% (60 - 111) FM 0.4% 100% (93 - 191) SZ 0.3% 41% (42 - 75) SS 0.1% 64% (62 - 119) ZZ 0.05% 19% (16 - 38) FS 0.05% 70% (70 - 128) FZ Unknown 46% (44 - 88) FF Unknown Unknown*A-1-AT concentration in the homozygous MM phenotype is taken as the reference normal. Percent deficiency in each phenotype is reported relative to this reference. Ranges used to confirm phenotype.Performed at: - [facility] [id number] Director: Alonzo Haro PhD, Phone: [phone] at: [facility] [address] [id number] Director: Rachell Rico MD, Phone: [phone] Serum or plasma pxqln-7-ghlc protein tumor marker measurement (mass/volume)Ordered By: Andry Morales on 06-17-2024 AFP.tumor marker [Mass/Vol] 3.0 ng/mL 0.0-6.4 [facility] Comment on above: [employer] El ectrochemiluminescence Immunoassay(ECLIA)Values obtained with different assay methods or kits cannotbe used interchangeably. Results cannot be interpreted asabsolute evidence of the presence or absence of malignantdisease.This test is not interpretable in females.Performed at: [facility] [id number] Director: Alonzo Haro PhD, Phone: [phone] Serum or plasma anion gap de terminationOrdered By: Andry Morales on 06-17-2024 Anion gap [Moles/Vol] 16.0 mmol/L High 6.0-15.0 [facility] Comment on above: Performed By: #### H AABT, MITOM2, HCV RX PCR, HBSAB, CERULOP, IGG, L-K MICRO, HEMOCHROM, HBCAB, ALPHA PHEN, HCBIGM, POLO, SMAB, HBSAG, HAAB, AFPTM #### [facility] , #### JAS, PT, CMP #### [facility] [address] [place] [address] Serum or plasma ceruloplasmi n measurement (mass/volume)Ordered By: Andry Morales on 06-17-2024 Ceruloplasmin [Mass/Vol] 38.7 mg/dL High 16.0-31.0 [facility] Comment on above: Performed at: [address] [id number] Director: Alonzo Haro PhD, Phone: [phone] Serum or plasma lipoprotein a measurement (moles/volume)Ordered By: Andry Morales on 06-17-2024 Lipoprotein a [Moles/Vol] <1.0 Units 0.0-20.0 [facility] Comment on above: Negative 0.0 - 20.0 Equivocal 20.1 - 24.9 Positive >24.9LKM type 1 antibodies are detected in patients withautoimmune hepatitis type 2 and in up to 8% ofpatients with chronic HCV infection.Performed at: [facility] [place], [place] [id number] Director: Alonzo Haro PhD, Phone: [phone] Smooth Muscle Antibodyon Smooth Muscle Antibody 12 Normal 0-19 [facility] Comment on above: Result Comment: Nega tive 0 - 19 Weak positive 20 - 30 Moderate to strong positive >30 Actin Antibodies are found in 52-85% of patients with autoimmune hepatitis or chronic active hepatitis and in 22% of patients with primary biliary cirrhosis. Performed By: #### H AABT, MITOM2, HCV RX PCR, HBSAB, CERULOP, IGG, L-K MICRO, HEMOCHROM, HBCAB, ALPHA PHEN, HCBIGM, POLO, SMAB, HBSAG, HAAB, AFPTM #### [facility] , #### JAS, PT, CMP #### [facility] [address] [place] [address] Sodium [Moles/volume] in Ser um or PlasmaOrdered By: Imad Asaad on 06-17-2024 Sodium [Moles/Vol] 139 mmol/L Normal 136-145 [facility] Comment on above: Performed By: #### H AABT, MITOM2, HCV RX PCR, HBSAB, CERULOP, IGG, L-K MICRO, HEMOCHROM, HBCAB, ALPHA PHEN, HCBIGM, POLO, SMAB, HBSAG, HAAB, AFPTM #### [facility] , #### JAS, PT, CMP #### [facility] [address] [place] [address] Urea nitrogen [Mass/volume] in Serum or PlasmaOrdered By: Imad Asaad on 06-17-2024 Urea nitrogen [Mass/Vol] 43 mg/dL High 7-25 [facility] Comment on above: Performed By: #### H AABT, MITOM2, HCV RX PCR, HBSAB, CERULOP, IGG, L-K MICRO, HEMOCHROM, HBCAB, ALPHA PHEN, HCBIGM, POLO, SMAB, HBSAG, HAAB, AFPTM #### [facility] , #### JAS, PT, CMP #### [facility] [address] [place] [address] [place] Erythrocyte distribution wid th Auto (RBC) [Ratio]on 04-26-2024 Erythrocyte distribution width (RBC) [Ratio] 14.4 % 11.0-15.0 [facility] Estimated glomerular filtrat ion rate (GFR) non- Americanon 04-26-2024 GFR/1.73 sq M.predicted among non-blacks MDRD (S/P/Bld) [Vol rate/Area] 38 mL/min/{1.73_m2} Low >=60 [facility] Hematocrit Auto (Bld) [Volum e fraction]on 04-26-2024 Hematocrit (Bld) [Volume fraction] 39.9 % Low 42.0-54.0 [facility] Hemoglobin [Mass/volume] in Bloodon 04-26-2024 Hemoglobin (Bld) [Mass/Vol] 13.3 g/dL Low 14.0-18.0 [facility] Laboratory - Chemistry and C hemistry - challengeon 04-26-2024 Albumin [Mass/Vol] 3.4 g/dL 3.4-5.0 [facility] Calcium [Mass/Vol] 9.4 mg/dL 8.5-10.1 [facility] Chloride [Moles/Vol] 102 mmol/L 98-107 [facility] CO2 [Moles/Vol] 29.1 mmol/L 21.0-32.0 [facility] Creatinine [Mass/Vol] 1.72 mg/dL High 0.70-1.30 [facility] GFR/1.73 sq M.predicted MDRD (S/P/Bld) [Vol rate/Area] 46 mL/min/{1.73_m2} Low >=60 [facility] Glucose [Mass/Vol] 208 mg/dL High 74-106 [facility] Magnesium [Mass/Vol] 1.7 mg/dL Low 1.8-2.4 [facility] Potassium [Moles/Vol] 3.8 mmol/L 3.5-5.1 [facility] Sodium [Moles/Vol] 139 mmol/L 136-145 [facility] Urate [Mass/Vol] 6.7 mg/dL 3.5-7.2 [facility] Urea nitrogen [Mass/Vol] 40.0 mg/dL High 7.0-18.0 [facility] Urea nitrogen/Creatinine [Mass ratio] 23.3 mg/mg [facility] Bilirubin Ql (U) Negative NEGATIVE [facility] Glucose (U) [Mass/Vol] mg/dL Abnormal NEGATIVE Fi [facility] Ketones Ql (U) Negative NEGATIVE [facility] pH (U) 6.0 [pH] 5.0-9.0 [facility] Specific gravity (U) [Rel density] 1.010 1.005-1.02 5 [facility] Urobilinogen Qn (U) 0.2 {Ric'U}/dL 0.2-1.0 [facility] Laboratory - Specimen inform ationon 04-26-2024 Appearance (U) CLEAR CLEAR [facility] Color (U) LT. YELLOW YELLOW [facility] Laboratory - Urinalysison Leukocyte esterase Test strip Ql (U) Negative NEGATIVE [facility] Nitrite Ql (U) Negative NEGATIVE [facility] Protein (U) [Mass/Vol] 9.1 mg/dL <=11.9 Fi [facility] Protein Ql (U) Negative NEG/TRACE [facility] Leukocytes [#/volume] correc benito for nucleated erythrocytes in Blood by Automated counon 04-26-2024 WBC corrected for nucl RBC Auto (Bld) [#/Vol] 6.0 10 3/uL 4.0-11.0 [facility] MCH Auto (RBC) [Entitic mass ]on 04-26-2024 MCH (RBC) [Entitic mass] 33.8 pg 25.9-34.0 [facility] MCHC Auto (RBC) [Mass/Vol]on 04-26-2024 MCHC (RBC) [Mass/Vol] 33.3 g/dL 29.9-35.2 [facility] MCV Auto (RBC) [Entitic vol] on 04-26-2024 MCV (RBC) [Entitic vol] 101.3 fL High 80.0-94.0 [facility] Microalbumin [Mass/volume] i n Urineon 04-26-2024 Albumin DL <= 20 mg/L (U) [Mass/Vol] mg/dL <=30.0 [facility] No Panel Informationon 04-26 25-Hydroxy Vitamin D Total 37.6 ng/mL [facility] Comment on above: <20 ng/mL Vit D defi cient20-<30 ng/mL Vit D acxjulacxuyd24-338 ng/mL Vit D sufficient>100 ng/mL Potential Toxicity Parathyroid Hormone (Intact) 78 pg/mL Abnormal 15-65 [facility] Comment on above: Performed at: - [address] [facility] [id number] Director: Alonzo Haro PhD, Phone: [phone] Phosphorus Level 3.6 mg/dL 2.6-4.7 [facility] Urine Occult Blood Negative NEGATIVE [facility] Urine Random Creatinine <13.00 mg/dL Low 20.00-300. 00 [facility] Platelet mean volume Auto (B ld) [Entitic vol]on 04-26-2024 Platelet mean volume (Bld) [Entitic vol] 10.6 fL 9.5-13.5 [facility] Platelets Auto (Bld) [#/Vol] on 04-26-2024 Platelets (Bld) [#/Vol] 131 10 3/uL Low 150-450 [facility] RBC Auto (Bld) [#/Vol]on RBC (Bld) [#/Vol] 3.94 10 6/uL Low 4.70-6.10 [facility] Serum or plasma anion gap de terminationon 04-26-2024 Anion gap [Moles/Vol] 11.7 mmol/L [facility] CBC AND AUTO DIFFon 03-09-20 24 Basophilic stippling LM Ql (Bld) 1+ Abnormal NONE [facility] Comment on above: Performed By: #### P INR, 12690-9 #### [facility] ([id number]) [address] [place] [address], [place] [address] #### CBCA, BMP #### [facility] ([id number]) [address] [place] [address] [address] [place] [address] Eosinophils (Bld) [#/Vol] 0.6 10*3/uL High 0.0-0.4 [facility] Comment on above: Performed By: #### P INR, 85507-2 #### [facility] ([id number]) [address] [place] [address] #### CBCA, BMP #### [facility] ([id number]) [address] [facility], [address] [place] [address] Eosinophils/100 WBC (Bld) 9.0 % Normal [facility] Comment on above: Performed By: #### P INR, 25978-9 #### [facility] ([id number]) [address] [place] [address] #### CBCA, BMP #### [facility] ([id number]) [address] [facility], [address] [place] [address] Erythrocyte distribution width (RBC) [Ratio] 14.9 % Normal 11.5-15.0 [facility] Comment on above: Performed By: #### P INR, 40336-6 #### [facility] ([id number]) [address] [place] [address] #### CBCA, BMP #### [facility] ([id number]) [address] [place] [address] Hematocrit (Bld) [Volume fraction] 38.9 % Low 39-49 [facility] Comment on above: Performed By: #### P INR, 78287-4 #### [facility] ([id number]) [address] [place] [address] #### CBCA, BMP #### [facility] ([id number]) [address] [address] [facility], [address] [place] [address] Hemoglobin (Bld) [Mass/Vol] 13.2 g/dL Normal 13.0-17.0 [facility] Comment on above: Performed By: #### P INR, 20685-9 #### [facility] ([id number]) [address] [place] [address] #### CBCA, BMP #### [facility] ([id number]) [address], [address] [place] [address] Lymphocytes (Bld) [#/Vol] 0.6 10*3/uL Low 1.0-3.5 [facility] Comment on above: Performed By: #### P INR, 11491-8 #### [facility] ([id number]) [address] [place] [address] 13611 #### CBCA, BMP #### [facility] ([id number]) [address], [address] [place] [address] Lymphocytes/100 WBC (Bld) 9.0 % Normal [facility] Comment on above: Performed By: #### P INR, 95863-5 #### [facility] ([id number]) [address] [place] [address] 13110 #### CBCA, BMP #### [facility] ([id number]) [address], [address] [place] [address] MCH (RBC) [Entitic mass] 33.7 pg Normal 27-34 [facility] Comment on above: Performed By: #### P INR, 86359-7 #### [facility] ([id number]) [address] [place] [address] 42915 #### CBCA, BMP #### [facility] ([id number]) [address], [address] [place] [address] MCHC (RBC) [Mass/Vol] 34.0 g/dL Normal 32-36 [facility] Comment on above: Performed By: #### P INR, 06055-2 #### [facility] ([id number]) [address] [place] [address] 47773 #### CBCIsra, BMP #### [facility] ([id number]) [address], [address] [place] [address] MCV (RBC) [Entitic vol] 99 fL Normal 80-100 [facility] Comment on above: Performed By: #### P INR, 47831-2 #### [facility] ([id number]) [address] [place] [address] 78284 #### CBCA, BMP #### [facility] ([id number]) [address], [address] [place] [address] Monocytes (Bld) [#/Vol] 0.6 10*3/uL Normal 0-0.9 [facility] Comment on above: Performed By: #### P INR, 23150-3 #### [facility] ([id number]) [address] [place] [address] #### CBCA, BMP #### [facility] ([id number]) [address], [address] [place] [address] Monocytes/100 WBC (Bld) 9.0 % Normal [facility] Comment on above: Performed By: #### P INR, 40277-2 #### [facility] ([id number]) [address] [place] [address] 89742 #### CBCA, BMP #### [facility] ([id number]) [address], [address] [place] [address] Neutrophils (Bld) [#/Vol] 5.4 10*3/uL Normal 1.5-6.6 [facility] Comment on above: Performed By: #### P INR, 30738-4 #### [facility] ([id number]) [address] [place] [address] 80884 #### CBCA, BMP #### [facility] ([id number]) [address], [address] [place] [address] Platelet mean volume (Bld) [Entitic vol] 8.9 fL Normal 7-12 [facility] Comment on above: Performed By: #### P INR, 15611-9 #### [facility] ([id number]) [address] [place] [address] 80657 #### CBCA, BMP #### [facility] ([id number]) [address] [facility], [address] [place] [address] Platelets (Bld) [#/Vol] 182 10*3/uL Normal 150-450 [facility] Comment on above: Performed By: #### P INR, 20422-3 #### [facility] ([id number]) [address] [place] [address] 35451 #### CBCA, BMP #### [facility] ([id number]) [address] [facility], [address] [place] [address] POLYCHROMASIA 1+ Abnormal NONE [facility] Comment on above: Performed By: #### P INR, 61771-2 #### [facility] ([id number]) [address] [place] [address] 94001 #### CBCA, BMP #### [facility] ([id number]) [address] [facility], [address] [place] [address] RBC COUNT 3.93 X10E12/L Low 4.10-5.70 [facility] Comment on above: Performed By: #### P INR, 19866-2 #### [facility] ([id number]) [address] [place] [address] 45910 #### CBCA, BMP #### [facility] ([id number]) [address], [address] [place] [address] SEG NEUTROPHIL 73.0 % Normal [facility] Comment on above: Performed By: #### P INR, 52761-8 #### [facility] ([id number]) [address] [place] [address] 10711 #### CBCA, BMP #### [facility] ([id number]) [address] [facility], [address] [place] [address] WBC (Bld) [#/Vol] 7.2 10*3/uL Normal 4.0-11.0 [facility] Comment on above: Performed By: #### P INR, 99090-1 #### [facility] ([id number]) [address] [place] [address] 39712 #### CBCA, BMP #### [facility] ([id number]) [address] [facility], [address] [place] [address] COMPREHENSIVE METABOLIC PANE Deacon 03-09-2024 Albumin [Mass/Vol] 3.6 g/dL Normal 3.2-5.3 [facility] Comment on above: Performed By: #### P INR, 28495-2 #### [facility] ([id number]) [address] [place] [address] 85211 #### CBCA, BMP #### [facility] ([id number]) [address], [address] [place] [address] ALP [Catalytic activity/Vol] 163 U/L High 39-130 [facility] Comment on above: Performed By: #### P INR, 76359-2 #### [facility] ([id number]) [address] [place] [address] 89362 #### CBCA, BMP #### [facility] ([id number]) [address], [address] [place] [address] ALT [Catalytic activity/Vol] 46 U/L High 0-40 [facility] Comment on above: Performed By: #### P INR, 21225-4 #### [facility] ([id number]) [address] [place] [address] 51841 #### CBCA, BMP #### [facility] ([id number]) [address], [address] [place] [address] Anion gap [Moles/Vol] 13 mmol/L Normal 5-15 [facility] Comment on above: Performed By: #### P INR, 37056-2 #### [facility] ([id number]) [address] [place] [address] 80167 #### CBCA, BMP #### [facility] ([id number]) [address], [address] [place] [address] AST [Catalytic activity/Vol] 44 U/L High 0-41 [facility] Comment on above: Performed By: #### P INR, 27753-0 #### [facility] ([id number]) [address] [place] [address] 85892 #### CBCA, BMP #### [facility] ([id number]) [address], [address] [place] [address] Bilirubin [Mass/Vol] 1.0 mg/dL Normal 0.3-1.2 [facility] Comment on above: Performed By: #### P INR, 80120-4 #### [facility] ([id number]) [address] [place] [address] 59934 #### CBCA, BMP #### [facility] ([id number]) [address], [address] [place] [address] Calcium [Mass/Vol] 8.3 mg/dL Low 8.5-10.5 [facility] Comment on above: Performed By: #### P INR, 29159-8 #### [facility] ([id number]) [address] [place] [address] 48208 #### CBCA, BMP #### [facility] ([id number]) [address] [place] [address] Chloride [Moles/Vol] 102 mmol/L Normal 98-109 [facility] Comment on above: Performed By: #### P INR, 66708-8 #### [facility] ([id number]) [address] [place] [address] 92328 #### CBCA, BMP #### [facility] ([id number]) [address], [address] [place] [address] CO2 [Moles/Vol] 21 mmol/L Low 22-32 [facility] Comment on above: Performed By: #### P INR, 53436-9 #### [facility] ([id number]) [address] [place] [address] 98393 #### CBCA, BMP #### [facility] ([id number]) [address], [address] [place] [address] Creatinine [Mass/Vol] 1.97 mg/dL High 0.70-1.20 [facility] Comment on above: Result Comment: METH OD TRACEABLE TO IDMS STANDARD Performed By: #### P INR, 74420-4 #### [facility] ([id number]) [address] [place] [address] 84183 #### CBCA, BMP #### [facility] ([id number]) [address], [address] [place] [address] GFR/1.73 sq M.predicted among non-blacks MDRD (S/P/Bld) [Vol rate/Area] 32 mL/min/{1.73_m2} Low >59 [facility] Comment on above: Result Comment: Reported eGFR is based on the CKD-EPI 2020 equation that does not use a race coefficient. Performed By: #### P INR, 43328-0 #### [facility] ([id number]) [address] [place] [address] 48647 #### CBCA, BMP #### [facility] ([id number]) [address], [address] [place] [address] Glucose [Mass/Vol] 256 mg/dL High 65-99 [facility] Comment on above: Performed By: #### P INR, 50200-4 #### [facility] ([id number]) [address] [place] [address] 07454 #### CBCA, BMP #### [facility] ([id number]) [address], [address] [place] [address] Potassium [Moles/Vol] 3.9 mmol/L Normal 3.5-5.0 [facility] Comment on above: Performed By: #### P INR, 38307-2 #### [facility] ([id number]) [address] [place] [address] 37347 #### CBCA, BMP #### [facility] ([id number]) [address] [place] [address] Protein [Mass/Vol] 7.8 g/dL Normal 6.0-8.0 [facility] Comment on above: Performed By: #### P INR, 86908-3 #### [facility] ([id number]) [address] [place] [address] 29543 #### CBCA, BMP #### [facility] ([id number]) [address], [address] [place] [address] Sodium [Moles/Vol] 136 mmol/L Normal 134-146 [facility] Comment on above: Performed By: #### P INR, 47229-6 #### [facility] ([id number]) [address] [facility], [place] [address] #### CBCA, BMP #### [facility] ([id number]) [address] [place] [address] Urea nitrogen [Mass/Vol] 60 mg/dL High 5-27 [facility] Comment on above: Performed By: #### P INR, 66290-8 #### [facility] ([id number]) [address] [facility], [place] [address] #### CBCA, BMP #### [facility] ([id number]) [address] [place] [address] CT ABDOMEN AND PELVIS W CONT on [...] Delroy Mcginnis MD on 03/09/2024 10:22 PM IKaz MD have personally reviewed the image(s) and agree with and/or edited the report Finalized by Kaz Rodas MD on 03/09/2024 10:47 PM Normal [facility] LIPASEon 03-09-2024 Lipase [Catalytic activity/Vol] 44 U/L High 17-40 [facility] Comment on above: Performed By: #### P INR, 90497-1 #### [facility] ([id number]) [address] [place] [address] 67379 #### CBCA, BMP #### [facility] ([id number]) [address] [facility], [address] [place] [address] MAGNESIUMon 03-09-2024 Magnesium [Mass/Vol] 1.7 mg/dL Low 1.8-2.6 [facility] Comment on above: Performed By: #### P INR, 00802-7 #### [facility] ([id number]) [address] [place] [address] 00143 #### CBCA, BMP #### [facility] ([id number]) [address] [facility], [address] [place] [address] Natriuretic peptide B [Mass/ Vol]on 03-09-2024 Natriuretic peptide B (Bld) [Mass/Vol] 83 pg/mL Normal <100.0 [facility] Comment on above: Performed By: #### P INR, 18374-0 #### [facility] ([id number]) [address] [place] [address] 60933 #### CBCA, BMP #### [facility] ([id number]) [address] [place] [address], [address] [address] PROTIME AND INRon 03-09-2024 INR Coag (PPP) [Relative time] 1.2 {INR} High 0.8-1.1 [facility] Comment on above: Performed By: #### P INR, 88502-9 #### [facility] ([id number]) [address] [place] [address] 21097 #### CBCIsra, BMP #### [facility] ([id number]) [address] [place] [address] PT Coag (PPP) [Time] 13.8 s High 9.8-13.2 [facility] Comment on above: Result Comment: NEW REFERENCE RANGE Performed By: #### P INR, 29654-2 #### [facility] ([id number]) [address] [place] [address] 07867 #### CBCA, BMP #### [facility] ([id number]) [address] [place] [address] Troponin I.cardiac High sens itivity method [Mass/Vol]on 03-09-2024 1 HOUR TROP I, HIGH SENSITIVITY 11 ng/L Normal <21 [facility] Comment on above: Performed By: #### P INR, 86599-8 #### [facility] ([id number]) [address] [place] [address] 47386 #### CBCA, BMP #### [facility] ([id number]) [address], [address] [place] [address] TROPONIN I, HIGH SENSITIVITY 13 ng/L Normal <21 [facility] Comment on above: Performed By: #### P INR, 79193-7 #### [facility] ([id number]) [address] [place] [address] 42972 #### CBCA, BMP #### [facility] ([id number]) [address] [facility], [address] [place] [address] aPTT Coag (PPP) [Time]on aPTT Coag (Bld) [Time] 34 s Normal 26-37 [facility] Comment on above: Result Comment: NEW REFERENCE RANGE Performed By: #### P INR, 39826-4 #### [facility] ([id number]) [address] [place] [address] 86668 #### CBCA, BMP #### [facility] ([id number]) [address], [address] [place] [address] BASIC METABOLIC PANLon 02-28 Anion gap [Moles/Vol] 13 mmol/L Normal 5-15 [facility] Comment on above: Performed By: #### P INR, 93855-8, BMP, 3040-3, 61083-2, LIVR, 22333-6, CBCA, 31924-6 #### [facility] ([id number]) [address] [place] [address]1985 Calcium [Mass/Vol] 7.9 mg/dL Low 8.5-10.5 [facility] Comment on above: Performed By: #### P INR, 76854-8, BMP, 3040-3, 49790-3, LIVR, 67325-2, CBCA, 25167-4 #### [facility] ([id number]) [address] [place] [address] 21365 Chloride [Moles/Vol] 99 mmol/L Normal 98-109 [facility] Comment on above: Performed By: #### P INR, 14156-2, BMP, 3040-3, 16256-2, LIVR, 79309-0, CBCA, 03189-7 #### [facility] ([id number]) [address] [place] [address] 79453 CO2 [Moles/Vol] 22 mmol/L Normal 22-32 [facility] Comment on above: Performed By: #### P INR, 57921-3, BMP, 3040-3, 49475-6, LIVR, 83351-7, CBCA, 39458-1 #### [facility] ([id number]) [address] [place] [address]5592 Creatinine [Mass/Vol] 1.99 mg/dL High 0.70-1.20 [facility] Comment on above: Result Comment: METH OD TRACEABLE TO IDMS STANDARD Performed By: #### P INR, 42315-8, BMP, 3040-3, 62775-2, LIVR, 35491-5, CBCA, 64217-9 #### [facility] ([id number]) [address] [place] [address]446 GFR/1.73 sq M.predicted among non-blacks MDRD (S/P/Bld) [Vol rate/Area] 32 mL/min/{1.73_m2} Low >59 [facility] Comment on above: Result Comment: Reported eGFR is based on the CKD-EPI 2020 equation that does not use a race coefficient. Performed By: #### P INR, 04605-4, BMP, 3040-3, 75671-3, LIVR, 84091-6, CBCA, 29257-2 #### [facility] ([id number]) [address] [place] [address] 88509 Glucose [Mass/Vol] 253 mg/dL High 65-99 [facility] Comment on above: Performed By: #### P INR, 34804-7, BMP, 3040-3, 99123-3, LIVR, 90682-9, CBCA, 84994-6 #### [facility] ([id number]) [address] [place] [address] 20607 Potassium [Moles/Vol] 4.0 mmol/L Normal 3.5-5.0 [facility] Comment on above: Performed By: #### P INR, 21807-4, BMP, 3040-3, 53205-0, LIVR, 38234-1, CBCA, 22168-6 #### [facility] ([id number]) [address] [place] [address]4220 Sodium [Moles/Vol] 134 mmol/L Normal 134-146 [facility] Comment on above: Performed By: #### P INR, 99940-6, BMP, 3040-3, 72435-7, LIVR, 70668-1, CBCA, 35073-2 #### [facility] ([id number]) [address] [place] [address] 34190 Urea nitrogen [Mass/Vol] 60 mg/dL High 5-27 [facility] Comment on above: Performed By: #### P INR, 66405-7, BMP, 3040-3, 02801-4, LIVR, 01277-4, CBCA, 38510-2 #### [facility] ([id number]) [address] [place] [address] CBC AND AUTO DIFFon -16-20 24 ABSOLUTE BASOPHIL 0.0 X10E9/L Normal 0.0-0.2 [facility] Comment on above: Performed By: #### P INR, 71163-2 #### [facility] ([id number]) [address] [place] [address] 02834 #### CBCA, BMP #### [facility] ([id number]) [address] [facility], [address] [place] [address] ABSOLUTE NEUTROPHIL 4.0 X10E9/L Normal 1.5-6.6 [facility] Comment on above: Performed By: #### P INR, 30724-0 #### [facility] ([id number]) [address] [place] [address] 61498 #### CBCA, BMP #### [facility] ([id number]) [address] [place] [address], [address] [place] [address] Basophils/100 WBC (Bld) 0.4 % Normal [facility] Comment on above: Performed By: #### P INR, 28721-4 #### [facility] ([id number]) [address] [place] [address] 26970 #### CBCA, BMP #### [facility] ([id number]) [address], [address] [place] [address] Eosinophils (Bld) [#/Vol] 0.2 10*3/uL Normal 0.0-0.4 [facility] Comment on above: Performed By: #### P INR, 90844-3 #### [facility] ([id number]) [address] [place] [address] 67554 #### CBCA, BMP #### [facility] ([id number]) [address] [facility], [address] [place] [address] Eosinophils/100 WBC (Bld) 4.2 % Normal [facility] Comment on above: Performed By: #### P INR, 14176-0 #### [facility] ([id number]) [address] [place] [address] 43807 #### CBCA, BMP #### [facility] ([id number]) [address] [place] [address] Erythrocyte distribution width (RBC) [Ratio] 15.4 % High 11.5-15.0 [facility] Comment on above: Performed By: #### P INR, 32215-2 #### [facility] ([id number]) [address] [place] [address] 54261 #### CBCA, BMP #### [facility] ([id number]) [address] [facility], [address] [place] [address] Hematocrit (Bld) [Volume fraction] 35.8 % Low 39-49 [facility] Comment on above: Performed By: #### P INR, 42785-8 #### [facility] ([id number]) [address] [place] [address] 95387 #### CBCA, BMP #### [facility] ([id number]) [address] [facility], [address] [place] [address] Hemoglobin (Bld) [Mass/Vol] 12.2 g/dL Low 13.0-17.0 [facility] Comment on above: Performed By: #### P INR, 53932-7 #### [facility] ([id number]) [address] [place] [address] 55713 #### CBCA, BMP #### [facility] ([id number]) [address] [facility], [address] [place] [address] Lymphocytes (Bld) [#/Vol] 0.7 10*3/uL Low 1.0-3.5 [facility] Comment on above: Performed By: #### P INR, 87976-7 #### [facility] ([id number]) [address] [place] [address] 42068 #### CBCA, BMP #### [facility] ([id number]) [address] [place] [address] Lymphocytes/100 WBC (Bld) 13.0 % Normal [facility] Comment on above: Performed By: #### P INR, 23421-9 #### [facility] ([id number]) [address] [place] [address] 04204 #### CBCA, BMP #### [facility] ([id number]) [address] [place] [address] MCH (RBC) [Entitic mass] 33.8 pg Normal 27-34 [facility] Comment on above: Performed By: #### P INR, 00314-1 #### [facility] ([id number]) [address] [place] [address] 94820 #### CBCA, BMP #### [facility] ([id number]) [address], [address] [place] [address] MCHC (RBC) [Mass/Vol] 34.1 g/dL Normal 32-36 [facility] Comment on above: Performed By: #### P INR, 40797-1 #### [facility] ([id number]) [address] [place] [address] #### CBCA, BMP #### [facility] ([id number]) [address] [place] [address] MCV (RBC) [Entitic vol] 99 fL Normal 80-100 [facility] Comment on above: Performed By: #### P INR, 24146-3 #### [facility] ([id number]) [address] [place] [address] #### CBCA, BMP #### [facility] ([id number]) [address], [address] [place] [address] Monocytes (Bld) [#/Vol] 0.7 10*3/uL Normal 0-0.9 [facility] Comment on above: Performed By: #### P INR, 17829-3 #### [facility] ([id number]) [address] [place] [address] #### CBCA, BMP #### [facility] ([id number]) [address] [place] [address] Monocytes/100 WBC (Bld) 12.6 % Normal [facility] Comment on above: Performed By: #### P INR, 51527-7 #### [facility] ([id number]) [address] [place] [address] #### CBCA, BMP #### [facility] ([id number]) [address] [place] [address] Neutrophils/100 WBC (Bld) 69.8 % Normal [facility] Comment on above: Performed By: #### P INR, 44855-9 #### [facility] ([id number]) [address] [place] [address] #### CBCA, BMP #### [facility] ([id number]) [address] [place] [address] Platelet mean volume (Bld) [Entitic vol] 8.8 fL Normal 7-12 [facility] Comment on above: Performed By: #### P INR, 96578-9 #### [facility] ([id number]) [address] [place] [address] #### CBCA, BMP #### [facility] ([id number]) [address] [place] [address] Platelets (Bld) [#/Vol] 172 10*3/uL Normal 150-450 [facility] Comment on above: Performed By: #### P INR, 54590-9 #### [facility] ([id number]) [address] [place] [address] #### CBCA, BMP #### [facility] ([id number]) [address] [address], [address] [place] [address] RBC COUNT 3.61 X10E12/L Low 4.10-5.70 [facility] Comment on above: Performed By: #### P INR, 12621-1 #### [facility] ([id number]) 5 [facility], [place] [address] #### CBCA, BMP #### [facility] ([id number]) [address], [address] [place] [address] WBC (Bld) [#/Vol] 5.7 10*3/uL Normal 4.0-11.0 [facility] Comment on above: Performed By: #### P INR, 72147-7 #### [facility] ([id number]) [address] [place] [address] #### CBCA, BMP #### [facility] ([id number]) [address], [address] [place] [address] CT CTA ABD AND PELVISon 02-13 CT CTA ABD AND PELVIS CT CTA ABD AND PEL VIS CLINICAL HISTORY: Acute mesenteric ischemia. Nausea and [...] Rodas MD on 02/29/2024 9:56 AM Normal [facility] LIPASEon 02-29-2024 Lipase [Catalytic activity/Vol] 31 U/L Normal 17-40 [facility] Comment on above: Performed By: #### P INR, 85399-3, BMP, 3040-3, 46274-0, LIVR, 82052-9, CBCA, 99362-0 #### [facility] ([id number]) [address] [place] [address], [place] [address] LIVER PANELon 02-29-2024 Albumin [Mass/Vol] 3.0 g/dL Low 3.2-5.3 [facility] Comment on above: Performed By: #### P INR, 22335-4 #### [facility] ([id number]) [address] [place] [address] #### CBCA, BMP #### [facility] ([id number]) [address], [address] [place] [address] ALP [Catalytic activity/Vol] 132 U/L High 39-130 [facility] Comment on above: Performed By: #### P INR, 94568-4 #### [facility] ([id number]) [address] [place] [address] #### CBCA, BMP #### [facility] ([id number]) [address], [address] [place] [address] ALT [Catalytic activity/Vol] 36 U/L Normal 0-40 [facility] Comment on above: Performed By: #### P INR, 79098-7 #### [facility] ([id number]) [address] [place] [address] #### CBCA, BMP #### [facility] ([id number]) [address], [address] [place] [address] AST [Catalytic activity/Vol] 38 U/L Normal 0-41 [facility] Comment on above: Performed By: #### P INR, 07607-8 #### [facility] ([id number]) [address] [place] [address] #### CBCA, BMP #### [facility] ([id number]) [address], [address] [place] [address] Bilirubin [Mass/Vol] 1.2 mg/dL Normal 0.3-1.2 [facility] Comment on above: Performed By: #### P INR, 41836-5 #### [facility] ([id number]) [address] [place] [address] #### CBCA, BMP #### [facility] ([id number]) [address], [address] [place] [address] Bilirubin.direct [Mass/Vol] 0.2 mg/dL Normal 0.0-0.4 [facility] Comment on above: Performed By: #### P INR, 00963-9 #### [facility] ([id number]) [address] [place] [address] #### CBCA, BMP #### [facility] ([id number]) [address] [address], [address] [place] [address] Protein [Mass/Vol] 6.5 g/dL Normal 6.0-8.0 [facility] Comment on above: Performed By: #### P INR, 32083-6 #### [facility] ([id number]) [address] [place] [address] #### CBCA, BMP #### [facility] ([id number]) [address] [address], [address] [place] [address] Lactate (P luis alberto) [Moles/Vol]o n 02-29-2024 LACTATE W/REFLEX 3.1 mmol/L High 0.4-2.0 [facility] Comment on above: Performed By: #### P INR, 04790-7, BMP, 3040-3, 29039-9, LIVR, 14007-4, CBCA, 32344-1 #### [facility] ([id number]) [address] [place] [address] MAGNESIUMon 02-29-2024 Magnesium [Mass/Vol] 1.9 mg/dL Normal 1.8-2.6 [facility] Comment on above: Performed By: #### P INR, 45314-6 #### [facility] ([id number]) [address] [place] [address] #### CBCA, BMP #### [facility] ([id number]) [address] [address], [address] [place] [address] PROTIME AND INRon 02-29-2024 INR Coag (PPP) [Relative time] 1.3 {INR} High 0.8-1.1 [facility] Comment on above: Performed By: #### P INR, 16533-7, BMP, 3040-3, 75649-6, LIVR, 97689-5, CBCA, 26767-7 #### [facility] ([id number]) [address] [place] [address] PT Coag (PPP) [Time] 14.6 s High 9.8-13.2 [facility] Comment on above: Result Comment: NEW REFERENCE RANGE Performed By: #### P INR, 01970-3, BMP, 3040-3, 93481-2, LIVR, 16644-7, CBCA, 30830-0 #### [facility] ([id number]) [address] [place] [address] Troponin I.cardiac High sens itivity method [Mass/Vol]on 02-29-2024 1 HOUR TROP I, HIGH SENSITIVITY 11 ng/L Normal <21 [facility] Comment on above: Performed By: #### P INR, 69522-5 #### [facility] ([id number]) [address] [place] [address] #### CBCA, BMP #### [facility] ([id number]) [address] [place] [address], [address] [place] [address] TROPONIN I, HIGH SENSITIVITY 12 ng/L Normal <21 [facility] Comment on above: Performed By: #### P INR, 67457-2 #### [facility] ([id number]) [address] [place] [address] #### CBCA, BMP #### [facility] ([id number]) [address], [address] [place] [address] aPTT Coag (PPP) [Time]on aPTT Coag (Bld) [Time] 31 s Normal 26-37 [facility] Comment on above: Result Comment: NEW REFERENCE RANGE Performed By: #### P INR, 49728-7, BMP, 3040-3, 10238-6, LIVR, 59859-5, CBCA, 66964-6 #### [facility] ([id number]) [address] [place] [address], [place] [address] BASIC METABOLIC PANLon 02-11 Anion gap [Moles/Vol] 10 mmol/L Normal 5-15 [facility] Comment on above: Performed By: #### C BCA, BMP #### [facility] ([id number]) [address] [place] [address] Calcium [Mass/Vol] 8.8 mg/dL Normal 8.5-10.5 [facility] Comment on above: Performed By: #### C BCA, BMP #### [facility] ([id number]) [address], [address] [place] [address] Chloride [Moles/Vol] 103 mmol/L Normal 98-109 [facility] Comment on above: Performed By: #### C BCA, BMP #### [facility] ([id number]) [address] [place] [address] CO2 [Moles/Vol] 24 mmol/L Normal 22-32 [facility] Comment on above: Performed By: #### C BCA, BMP #### [facility] ([id number]) [address] [place] [address] Creatinine [Mass/Vol] 1.14 mg/dL Normal 0.60-1.30 [facility] Comment on above: Result Comment: METH OD TRACEABLE TO IDMS STANDARD Performed By: #### C BCA, BMP #### [facility] ([id number]) [address] [address] [place] [address] GFR/1.73 sq M.predicted among non-blacks MDRD (S/P/Bld) [Vol rate/Area] 62 mL/min/{1.73_m2} Normal >59 [facility] Comment on above: Result Comment: Reported eGFR is based on the CKD-EPI 2020 equation that does not use a race coefficient. Performed By: #### C BCA, BMP #### [facility] ([id number]) [address] [address] [place] [address] Glucose [Mass/Vol] 155 mg/dL High 65-99 [facility] Comment on above: Performed By: #### C BCA, BMP #### [facility] ([id number]) [address] [address] [place] [address] Potassium [Moles/Vol] 3.9 mmol/L Normal 3.5-5.0 [facility] Comment on above: Performed By: #### C BCA, BMP #### [facility] ([id number]) [address] [address] [place] [address] Sodium [Moles/Vol] 137 mmol/L Normal 134-146 [facility] Comment on above: Performed By: #### C BCA, BMP #### [facility] ([id number]) [address] [address] [place] [address] Urea nitrogen [Mass/Vol] 27 mg/dL Normal 5-27 [facility] Comment on above: Performed By: #### C BCA, BMP #### [facility] ([id number]) [address], [address] [place] [address] CBC AND AUTO DIFFon 05-30-20 24 ABSOLUTE BASOPHIL 0.0 X10E9/L Normal 0.0-0.2 [facility] Comment on above: Performed By: #### C BCA, BMP #### [facility] ([id number]) [address], [address] [place] [address] ABSOLUTE NEUTROPHIL 5.2 X10E9/L Normal 1.5-6.6 [facility] Comment on above: Performed By: #### C BCA, BMP #### [facility] ([id number]) [address] [place] [address] Basophils/100 WBC (Bld) 0.2 % Normal [facility] Comment on above: Performed By: #### C BCA, BMP #### [facility] ([id number]) [address] [place] [address] Eosinophils (Bld) [#/Vol] 0.0 10*3/uL Normal 0.0-0.4 [facility] Comment on above: Performed By: #### C BCA, BMP #### [facility] ([id number]) [address], [address] [place] [address] Eosinophils/100 WBC (Bld) 0.1 % Normal [facility] Comment on above: Performed By: #### C BCA, BMP #### [facility] ([id number]) [address] [place] [address] Erythrocyte distribution width (RBC) [Ratio] 15.0 % Normal 11.5-15.0 [facility] Comment on above: Performed By: #### C BCA, BMP #### [facility] ([id number]) [address], [address] [place] [address] Hematocrit (Bld) [Volume fraction] 34.7 % Low 39-49 [facility] Comment on above: Performed By: #### C BCA, BMP #### [facility] ([id number]) [address], [address] [place] [address] Hemoglobin (Bld) [Mass/Vol] 12.0 g/dL Low 13.0-17.0 [facility] Comment on above: Performed By: #### C CARLA, BMP #### [facility] ([id number]) [address] [place] [address] Lymphocytes (Bld) [#/Vol] 0.6 10*3/uL Low 1.0-3.5 [facility] Comment on above: Performed By: #### C CARLA, BMP #### [facility] ([id number]) [address], [address] [place] [address] Lymphocytes/100 WBC (Bld) 10.3 % Normal [facility] Comment on above: Performed By: #### C CARLA, BMP #### [facility] ([id number]) [address], [address] [place] [address] MCH (RBC) [Entitic mass] 34.0 pg Normal 27-34 [facility] Comment on above: Performed By: #### C CARLA, BMP #### [facility] ([id number]) [address] [place] [address] MCHC (RBC) [Mass/Vol] 34.7 g/dL Normal 32-36 [facility] Comment on above: Performed By: #### C CARLA, BMP #### [facility] ([id number]) [address], [address] [place] [address] MCV (RBC) [Entitic vol] 98 fL Normal 80-100 [facility] Comment on above: Performed By: #### C CARLA, BMP #### [facility] ([id number]) [address] [place] [address] Monocytes (Bld) [#/Vol] 0.3 10*3/uL Normal 0-0.9 [facility] Comment on above: Performed By: #### C CALRA, BMP #### [facility] ([id number]) [address], [address] [place] [address] Monocytes/100 WBC (Bld) 5.1 % Normal [facility] Comment on above: Performed By: #### C CARLA, BMP #### [facility] ([id number]) [address], [address] [place] [address] Neutrophils/100 WBC (Bld) 84.3 % Normal [facility] Comment on above: Performed By: #### C CARLA, BMP #### [facility] ([id number]) [address] [place] [address] Platelet mean volume (Bld) [Entitic vol] 8.3 fL Normal 7-12 [facility] Comment on above: Performed By: #### Malik AGUIRRE, BMP #### [facility] ([id number]) [address] [place] [address] Platelets (Bld) [#/Vol] 111 10*3/uL Low 150-450 [facility] Comment on above: Performed By: #### Malik AGUIRRE, BMP #### [facility] ([id number]) [address], [address] [place] [address] RBC COUNT 3.53 X10E12/L Low 4.10-5.70 [facility] Comment on above: Performed By: #### Malik AGUIRRE, BMP #### [facility] ([id number]) [address], [address] [place] [address] WBC (Bld) [#/Vol] 6.1 10*3/uL Normal 4.0-11.0 [facility] Comment on above: Performed By: #### Malik AGUIRRE, BMP #### [facility] ([id number]) [address], [address] [place] [address] Calcium.ionized (Bld) [Mass/ Vol]on 02-12-2024 IONIZED CALCIUM 4.8 mg/dL Normal 4.5-5.3 [facility] Comment on above: Performed By: #### 3 8230-9, 22221-6 #### [facility] ([id number]) [address] [place] [address] Magnesium Ionized ISE (Bld) [Moles/Vol]on 02-12-2024 Magnesium [Moles/Vol] 0.51 mmol/L Normal 0.45-0.74 [facility] Comment on above: Result Comment: NEW REFERENCE RANGE Performed By: #### 3 8230-9, 87939-6 #### [facility] ([id number]) [address] [place] [address] CBC AND AUTO DIFFon 02-11-20 ABSOLUTE BASOPHIL 0.0 X10E9/L Normal 0.0-0.2 [facility] Comment on above: Performed By: #### C BCA #### [facility] ([id number]) [address] [place] [address] ABSOLUTE NEUTROPHIL 5.1 X10E9/L Normal 1.5-6.6 [facility] Comment on above: Performed By: #### C BCA #### [facility] ([id number]) [address] [place] [address] Basophils/100 WBC (Bld) 0.5 % Normal [facility] Comment on above: Performed By: #### C BCA #### [facility] ([id number]) [address] [place] [address] Eosinophils (Bld) [#/Vol] 0.2 10*3/uL Normal 0.0-0.4 [facility] Comment on above: Performed By: #### C BCA #### [facility] ([id number]) [address] [place] [address] Eosinophils/100 WBC (Bld) 3.2 % Normal [facility] Comment on above: Performed By: #### C BCA #### [facility] ([id number]) [address] [place] [address] Erythrocyte distribution width (RBC) [Ratio] 15.0 % Normal 11.5-15.0 [facility] Comment on above: Performed By: #### C BCA #### [facility] ([id number]) [address] [place] [address] Hematocrit (Bld) [Volume fraction] 36.0 % Low 39-49 [facility] Comment on above: Performed By: #### C BCA #### [facility] ([id number]) [address] [address] [place] [address] Hemoglobin (Bld) [Mass/Vol] 12.1 g/dL Low 13.0-17.0 [facility] Comment on above: Performed By: #### C BCA #### [facility] ([id number]) [address] [place] [address] Lymphocytes (Bld) [#/Vol] 0.9 10*3/uL Low 1.0-3.5 [facility] Comment on above: Performed By: #### C BCA #### [facility] ([id number]) [address] [place] [address] Lymphocytes/100 WBC (Bld) 13.4 % Normal [facility] Comment on above: Performed By: #### C BCA #### [facility] ([id number]) [address], [address] [place] [address] MCH (RBC) [Entitic mass] 33.3 pg Normal 27-34 [facility] Comment on above: Performed By: #### C BCA #### [facility] ([id number]) [address] [address] [place] [address] MCHC (RBC) [Mass/Vol] 33.5 g/dL Normal 32-36 [facility] Comment on above: Performed By: #### C BCA #### [facility] ([id number]) [address] [place] [address] MCV (RBC) [Entitic vol] 100 fL Normal 80-100 [facility] Comment on above: Performed By: #### C BCA #### [facility] ([id number]) [address], [address] [place] [address] Monocytes (Bld) [#/Vol] 0.2 10*3/uL Normal 0-0.9 [facility] Comment on above: Performed By: #### C BCA #### [facility] ([id number]) [address] [place] [address] Monocytes/100 WBC (Bld) 3.0 % Normal [facility] Comment on above: Performed By: #### C BCA #### [facility] ([id number]) [address] [place] [address] Neutrophils/100 WBC (Bld) 79.9 % Normal [facility] Comment on above: Performed By: #### C BCA #### [facility] ([id number]) [address], [address] [place] [address] Platelet mean volume (Bld) [Entitic vol] 8.6 fL Normal 7-12 [facility] Comment on above: Performed By: #### C BCA #### [facility] ([id number]) [address] [place] [address] Platelets (Bld) [#/Vol] 117 10*3/uL Low 150-450 [facility] Comment on above: Performed By: #### C BCA #### [facility] ([id number]) [address] [place] [address] RBC COUNT 3.62 X10E12/L Low 4.10-5.70 [facility] Comment on above: Performed By: #### C BCA #### [facility] ([id number]) [address] [place] [address] WBC (Bld) [#/Vol] 6.4 10*3/uL Normal 4.0-11.0 [facility] Comment on above: Performed By: #### C BCA #### [facility] ([id number]) [address] [place] [address] Glucose Glucometer (BldC) [M ass/Vol]on 02-11-2024 Glucose [Mass/Vol] 179 mg/dL High 65-99 [facility] Magnesium Ionized ISE (Bld) [Moles/Vol]on 02-11-2024 Magnesium [Moles/Vol] 0.47 mmol/L Normal 0.45-0.74 [facility] Comment on above: Result Comment: NEW REFERENCE RANGE Performed By: #### 7 3572-0 #### [facility] ([id number]) [address] [place] [address] Glucose Glucometer (BldC) [M ass/Vol]on 01-27-2024 Glucose [Mass/Vol] 203 mg/dL High 65-99 [facility] BASIC METABOLIC PANLon 01-18 Anion gap [Moles/Vol] 9 mmol/L Normal 5-15 [facility] Comment on above: Performed By: #### P INR, 72653-5 #### [facility] ([id number]) [address] [place] [address], [place] [address] #### CBCA, BMP #### [facility] ([id number]) [address] [place] [address] Calcium [Mass/Vol] 9.4 mg/dL Normal 8.5-10.5 [facility] Comment on above: Performed By: #### P INR, 17772-0 #### [facility] ([id number]) [address] [place] [address] #### WILL, BMP #### [facility] ([id number]) [address] [place] [address] Chloride [Moles/Vol] 102 mmol/L Normal 98-109 [facility] Comment on above: Performed By: #### P INR, 72769-1 #### [facility] ([id number]) [address] [place] [address] #### WILL, BMP #### [facility] ([id number]) [address] [facility], [address] [place] [address] CO2 [Moles/Vol] 27 mmol/L Normal 22-32 [facility] Comment on above: Performed By: #### P INR, 82324-9 #### [facility] ([id number]) [address] [place] [address] #### WILL, BMP #### [facility] ([id number]) [address] [facility] [place] [address] Creatinine [Mass/Vol] 1.50 mg/dL High 0.60-1.30 [facility] Comment on above: Result Comment: METH OD TRACEABLE TO IDMS STANDARD Performed By: #### P INR, 35586-0 #### [facility] ([id number]) [address] [place] [address] #### CBCA, BMP #### [facility] ([id number]) [address] [place] [address] GFR/1.73 sq M.predicted among non-blacks MDRD (S/P/Bld) [Vol rate/Area] 45 mL/min/{1.73_m2} Low >59 [facility] Comment on above: Result Comment: Reported eGFR is based on the CKD-EPI 2020 equation that does not use a race coefficient. Performed By: #### P INR, 52053-1 #### [facility] ([id number]) [address] [place] [address] #### CBCA, BMP #### [facility] ([id number]) [address] [place] [address] Glucose [Mass/Vol] 209 mg/dL High 65-99 [facility] Comment on above: Performed By: #### P INR, 07187-8 #### [facility] ([id number]) [address] [place] [address] #### CBCA, BMP #### [facility] ([id number]) [address] [place] [address] Potassium [Moles/Vol] 4.0 mmol/L Normal 3.5-5.0 [facility] Comment on above: Performed By: #### P INR, 83969-7 #### [facility] ([id number]) [address] [place] [address] #### CBCA, BMP #### [facility] ([id number]) [address] [place] [address] Sodium [Moles/Vol] 138 mmol/L Normal 134-146 [facility] Comment on above: Performed By: #### P INR, 57550-7 #### [facility] ([id number]) [address] [place] [address] #### CBCA, BMP #### [facility] ([id number]) [address] [place] [address] Urea nitrogen [Mass/Vol] 38 mg/dL High 5-27 [facility] Comment on above: Performed By: #### P INR, 29631-1 #### [facility] ([id number]) [address] [place] [address] #### CBCA, BMP #### [facility] ([id number]) [address] [facility], [address] [place] [address] CBC AND AUTO DIFFon 01-19-20 24 ABSOLUTE BASOPHIL 0.1 X10E9/L Normal 0.0-0.2 [facility] Comment on above: Performed By: #### P INR, 69049-1 #### [facility] ([id number]) [address] [place] [address] #### CBCA, BMP #### [facility] ([id number]) [address] [facility], [address] [place] [address] ABSOLUTE NEUTROPHIL 3.3 X10E9/L Normal 1.5-6.6 [facility] Comment on above: Performed By: #### P INR, 57033-0 #### [facility] ([id number]) [address] [place] [address] #### CBCA, BMP #### [facility] ([id number]) [address] [facility], [address] [place] [address] Basophils/100 WBC (Bld) 1.1 % Normal [facility] Comment on above: Performed By: #### P INR, 04279-4 #### [facility] ([id number]) [address] [place] [address] 17861 #### CBCA, BMP #### [facility] ([id number]) [address], [address] [place] [address] Eosinophils (Bld) [#/Vol] 0.2 10*3/uL Normal 0.0-0.4 [facility] Comment on above: Performed By: #### P INR, 07633-5 #### [facility] ([id number]) [address] [place] [address] 28586 #### CBCA, BMP #### [facility] ([id number]) [address] [place] [address] Eosinophils/100 WBC (Bld) 5.0 % Normal [facility] Comment on above: Performed By: #### P INR, 19970-7 #### [facility] ([id number]) [address] [place] [address] 71094 #### CBCA, BMP #### [facility] ([id number]) [address], [address] [place] [address] Erythrocyte distribution width (RBC) [Ratio] 14.9 % Normal 11.5-15.0 [facility] Comment on above: Performed By: #### P INR, 08924-4 #### [facility] ([id number]) [address] [place] [address] 30786 #### CBCA, BMP #### [facility] ([id number]) [address], [address] [place] [address] Hematocrit (Bld) [Volume fraction] 39.4 % Normal 39-49 [facility] Comment on above: Performed By: #### P INR, 57072-0 #### [facility] ([id number]) [address] [place] [address] 00862 #### CBCA, BMP #### [facility] ([id number]) [address] [place] [address] Hemoglobin (Bld) [Mass/Vol] 13.2 g/dL Normal 13.0-17.0 [facility] Comment on above: Performed By: #### P INR, 66807-6 #### [facility] ([id number]) [address] [place] [address] 66191 #### CBCA, BMP #### [facility] ([id number]) [address], [address] [place] [address] Lymphocytes (Bld) [#/Vol] 1.0 10*3/uL Normal 1.0-3.5 [facility] Comment on above: Performed By: #### P INR, 76263-2 #### [facility] ([id number]) [address] [place] [address] 76326 #### CBCA, BMP #### [facility] ([id number]) [address], [address] [place] [address] Lymphocytes/100 WBC (Bld) 21.2 % Normal [facility] Comment on above: Performed By: #### P INR, 82648-0 #### [facility] ([id number]) [address] [place] [address] 22751 #### CBCA, BMP #### [facility] ([id number]) [address], [address] [place] [address] MCH (RBC) [Entitic mass] 33.3 pg Normal 27-34 [facility] Comment on above: Performed By: #### P INR, 98250-5 #### [facility] ([id number]) [address] [place] [address] 44850 #### CBCA, BMP #### [facility] ([id number]) [address], [address] [place] [address] MCHC (RBC) [Mass/Vol] 33.6 g/dL Normal 32-36 [facility] Comment on above: Performed By: #### P INR, 89819-4 #### [facility] ([id number]) [address] [place] [address] 68595 #### CBCA, BMP #### [facility] ([id number]) [address] [place] [address] MCV (RBC) [Entitic vol] 99 fL Normal 80-100 [facility] Comment on above: Performed By: #### P INR, 93702-0 #### [facility] ([id number]) [address] [place] [address] 29044 #### CBCA, BMP #### [facility] ([id number]) [address], [address] [place] [address] Monocytes (Bld) [#/Vol] 0.3 10*3/uL Normal 0-0.9 [facility] Comment on above: Performed By: #### P INR, 70620-2 #### [facility] ([id number]) [address] [place] [address] 60524 #### CBCA, BMP #### [facility] ([id number]) [address] [place] [address] Monocytes/100 WBC (Bld) 5.6 % Normal [facility] Comment on above: Performed By: #### P INR, 64116-8 #### [facility] ([id number]) [address] [place] [address] 73328 #### CBCA, BMP #### [facility] ([id number]) [address] [place] [address] Neutrophils/100 WBC (Bld) 67.1 % Normal [facility] Comment on above: Performed By: #### P INR, 95611-1 #### [facility] ([id number]) [address] [place] [address] 16006 #### CBCA, BMP #### [facility] ([id number]) [address] [place] [address] Platelet mean volume (Bld) [Entitic vol] 8.8 fL Normal 7-12 [facility] Comment on above: Performed By: #### P INR, 46823-8 #### [facility] ([id number]) [address] [place] [address] 69994 #### CBCA, BMP #### [facility] ([id number]) [address] [place] [address] Platelets (Bld) [#/Vol] 137 10*3/uL Low 150-450 [facility] Comment on above: Performed By: #### P INR, 57776-9 #### [facility] ([id number]) [address] [place] [address] 92304 #### CBCA, BMP #### [facility] ([id number]) [address] [place] [address] RBC COUNT 3.97 X10E12/L Low 4.10-5.70 [facility] Comment on above: Performed By: #### P INR, 64002-8 #### [facility] ([id number]) [address] [place] [address] 74051 #### CBCA, BMP #### [facility] ([id number]) [address] [place] [address] WBC (Bld) [#/Vol] 4.9 10*3/uL Normal 4.0-11.0 [facility] Comment on above: Performed By: #### P INR, 48296-6 #### [facility] ([id number]) [address] [place] [address] 51205 #### CBCA, BMP #### [facility] ([id number]) [address] [place] [address] PROTIME AND INRon 01-19-2024 INR Coag (PPP) [Relative time] 1.1 {INR} Normal 0.8-1.1 [facility] Comment on above: Performed By: #### P INR, 19447-1 #### [facility] ([id number]) [address] [place] [address] 23382 #### CBCA, BMP #### [facility] ([id number]) [address], [address] [place] [address] PT Coag (PPP) [Time] 12.8 s Normal 9.8-13.2 [facility] Comment on above: Result Comment: NEW REFERENCE RANGE Performed By: #### P INR, 58804-1 #### [facility] ([id number]) [address] [place] [address] 85792 #### CBCA, BMP #### [facility] ([id number]) [address] [address], [address] [place] [address] aPTT Coag (PPP) [Time]on aPTT Coag (Bld) [Time] 34 s Normal 26-37 [facility] Comment on above: Result Comment: NEW REFERENCE RANGE Performed By: #### P INR, 75962-7 #### [facility] ([id number]) [address] [place] [address] 14739 #### CBCA, BMP #### [facility] ([id number]) [address] [address], [address] [place] [address] 65185 36on 12-25-2023 36 Patient needs upcomi ng CEA with Dr. Enciso and he is requesting clearance. Does patient need stress test prior or are you able to clear him? Please advise. Thank you. Normal [facility] Office Visiton 11-03-2023 Follow-up visit [id number] Milton Suarez 1935 M Date Provider Department Center 11/03/2023 [facility]EN [facility]ON[facility] Family History Problem Relation Age of Onset No Known Problems Mother No Known Problems Father Family Status - Relation Status Age at Mother Father Level of Service:22622 [place] OFFICE/OUTPATIENT ESTABLISHED LOW MDM 20 MIN Normal [facility] PTH INTACTon 02-12-2023 PTH, Intact 28 pg/mL Normal 15-65 [facility] Comment on above: Performed By: #### B MP, BNP #### [facility] [address] [place] [address] Dr. Mary Kay Vaca FERRITINon 02-11-2023 Ferritin [Mass/Vol] 685.0 ng/mL Critically high 26.0-388.0 [facility] Comment on above: Performed By: #### B MP, BNP #### [facility] [address] [place] [address] Dr. Mary Kay Vaca HEMOGRAM AND PLATELon 2022 Hematocrit (Bld) [Volume fraction] 37.8 % Critically low 42.0-54.0 [facility] Comment on above: Performed By: #### R ENDIMAS, LIPID #### [facility] [address] [place] [address] Dr. Mary Kay Vaca Hemoglobin (Bld) [Mass/Vol] 12.8 g/dL Critically low 14.0-18.0 [facility] Comment on above: Performed By: #### R ENDIMAS, LIPID #### [facility] [address] [place] [address] Dr. Mary Kay Vaca MCH (RBC) [Entitic mass] 32.5 pg Normal 25.9-34.0 [facility] Comment on above: Performed By: #### R ENDIMAS, LIPID #### [facility] [address] [place] [address] Dr. Mary Kay Vaca MCHC (RBC) [Mass/Vol] 33.9 g/dL Normal 29.9-35.2 [facility] Comment on above: Performed By: #### R ENDIMAS, LIPID #### [facility] [address] [place] [address] Dr. Mary Kay Vaca MCV (RBC) [Entitic vol] 95.9 fL Critically high 80.0-94.0 [facility] Comment on above: Performed By: #### R ENAL, LIPID #### [facility] [address] [place] [address] Dr. Mary Kay Vaca PLT 163 103/ul Normal 150-450 [facility] Comment on above: Performed By: #### R ENAL, LIPID #### [facility] [address] [address] [address] Mary Kay Vaca RBC 3.94 106/ul Critically low 4.70-6.10 [facility] Comment on above: Performed By: #### R ENAL, LIPID #### [facility] [address] [address] [address] Mary Kay Vaca WBC 6.3 103/ul Normal 4.0-11.0 [facility] Comment on above: Performed By: #### R ENAL, LIPID #### [facility] [address] [place] [address] Dr. Mary Kay Vaca IRON AND TIBCon 02-11-2023 % SATURATION 40.8 % Normal [facility] Comment on above: Performed By: #### B MP, BNP #### [facility] [address] [place] [address] Dr. Mary Kay Vaca Iron [Mass/Vol] 127.0 ug/dL Normal 65.0-175.0 [facility] Comment on above: Performed By: #### B MP, BNP #### [facility] [address] [place] [address] Dr. Mary Kay Vaca TIBC DIRECT 311.0 ug/dL Normal 250.0-450. 0 [facility] Comment on above: Performed By: #### B MP, BNP #### [facility] [address] [place] [address] Dr. Mary Kay Vaca MAGNESIUMon 02-11-2023 Magnesium [Mass/Vol] 1.7 mg/dL Critically low 1.8-2.4 [facility] Comment on above: Performed By: #### R ENAL, LIPID #### [facility] [address] [place] [address] Dr. Mary Kay Vaca PHOSPHORUSon 02-11-2023 Phosphate [Mass/Vol] 3.1 mg/dL Normal 2.6-4.7 [facility] Comment on above: Performed By: #### R ENAL, LIPID #### [facility] [address] [address] [address] Mary Kay Vaca PROF 14(COMP METB)on 023 Albumin [Mass/Vol] 3.7 g/dL Normal 3.4-5.0 [facility] Comment on above: Performed By: #### R ENAL, LIPID #### [facility] [address] [address] [address] Mary Kay Vaca Albumin/Globulin [Mass ratio] 0.8 {ratio} Normal [facility] Comment on above: Performed By: #### R ENDIMAS, LIPID #### [facility] [address] [place] [address] Dr. Mary Kay Vaca ALP [Catalytic activity/Vol] 178 U/L Critically high 46-116 [facility] Comment on above: Performed By: #### R ENDIMAS, LIPID #### [facility] [address] [place] [address] Dr. Mary Kay Vaca ALT [Catalytic activity/Vol] 72 U/L Critically high 16-63 [facility] Comment on above: Performed By: #### R ENDIMAS, LIPID #### [facility] [address] [place] [address] Dr. Mary Kay Vaca Anion gap [Moles/Vol] 16.6 mmol/L Normal [facility] Comment on above: Performed By: #### R ENDIMAS, LIPID #### [facility] [address] [address] [address] Mary Kay Vaca AST [Catalytic activity/Vol] 53 U/L Critically high 15-37 [facility] Comment on above: Performed By: #### R ENAL, LIPID #### [facility] [address] [place] [address] Dr. Mary Kay Vaca Bilirubin [Mass/Vol] 0.5 mg/dL Normal 0.2-1.0 [facility] Comment on above: Performed By: #### R ENDIMAS, LIPID #### [facility] [address] [place] [address] Dr. Mary Kay Vaca Calcium [Mass/Vol] 9.4 mg/dL Normal 8.5-10.1 [facility] Comment on above: Performed By: #### R ENAL, LIPID #### [facility] [address] [address] [address] Mary Kay Vaca Chloride [Moles/Vol] 102 mmol/L Normal 98-107 [facility] Comment on above: Performed By: #### R ENAL, LIPID #### [facility] [address] [address] [address] Mary Kay Vaca CO2 [Moles/Vol] 26.6 mmol/L Normal 21.0-32.0 [facility] Comment on above: Performed By: #### R ENAL, LIPID #### [facility] [address] [place] [address] Dr. Mary Kay Vaca Creatinine [Mass/Vol] 1.72 mg/dL Critically high 0.70-1.30 [facility] Comment on above: Performed By: #### R ENAL, LIPID #### [facility] [address] [place] [address] Dr. Mary Kay Vaca EGFR-AF BRUNEIAN 46 mL/min/1.73m2 Critically low >=60 [facility] Comment on above: Performed By: #### R ENAL, LIPID #### [facility] [address] [place] [address] Dr. Mary Kay Vaca EGFR-NON AF BRUNEIAN 38 mL/min/1.73m2 Critically low >=60 [facility] Comment on above: Performed By: #### R ENAL, LIPID #### [facility] [address] [place] [address] Dr. Mary Kay Vaca Globulin (S) [Mass/Vol] 4.9 g/dL Normal [facility] Comment on above: Performed By: #### R ENAL, LIPID #### [facility] [address] [place] [address] Dr. Mary Kay Vaca Glucose [Mass/Vol] 205 mg/dL Critically high 74-106 [facility] Comment on above: Performed By: #### R ENAL, LIPID #### [facility] [address] [address] [address] Mary Kay Vaca Potassium [Moles/Vol] 4.2 mmol/L Normal 3.5-5.1 [facility] Comment on above: Performed By: #### R ENAL, LIPID #### [facility] [address] [place] [address] Dr. Mary Kay Vaca Protein [Mass/Vol] 8.6 g/dL Critically high 6.4-8.2 [facility] Comment on above: Performed By: #### R ENAL, LIPID #### [facility] [address] [address] [address] Mary Kay Vaca Sodium [Moles/Vol] 141 mmol/L Normal 136-145 [facility] Comment on above: Performed By: #### R ENAL, LIPID #### [facility] [address] [place] [address] Dr. Mary Kay Vaca Urea nitrogen [Mass/Vol] 36.0 mg/dL Critically high 7.0-18.0 [facility] Comment on above: Performed By: #### R ENAL, LIPID #### [facility] [address] [place] [address] Dr. Mary Kay Vaca Urea nitrogen/Creatinine [Mass ratio] 20.9 mg/mg Normal [facility] Comment on above: Performed By: #### R ENAL, LIPID #### [facility] [address] [place] [address] Dr. Mary Kay Vaca UA RANDOMon 02-11-2023 Bilirubin Ql (U) Negative Normal NEGATIVE [facility] Comment on above: Performed By: #### U A #### [facility] [address] [place] [address] Dr. Mary Kay Vaca Clarity (U) CLEAR Normal CLEAR [facility] Comment on above: Performed By: #### U A #### [facility] [address] [place] [address] Dr. Mary Kay Vaca Color (U) LT. YELLOW Normal YELLOW [facility] Comment on above: Performed By: #### U A #### [facility] [address] [place] [address] Dr. Mary Kay Vaca Glucose Ql (U) Negative Normal NEGATIVE [facility] Comment on above: Performed By: #### U A #### [facility] [address] [place] [address] Dr. Mary Kay Vaca Hemoglobin Ql (U) Negative Normal NEGATIVE [facility] Comment on above: Performed By: #### U A #### [facility] [address] [place] [address] Dr. Mary Kay Vaca Ketones Ql (U) Negative Normal NEGATIVE [facility] Comment on above: Performed By: #### U A #### [facility] [address] [place] [address] Dr. Mary Kay Vaca LEUKOCYTES Negative Normal NEGATIVE [facility] Comment on above: Performed By: #### U A #### [facility] [address] [place] [address] Dr. Mary Kay Vaca Nitrite Ql (U) Negative Normal NEGATIVE [facility] Comment on above: Performed By: #### U A #### [facility] [address] [place] [address] Dr. Mary Kay Vaca pH (U) 6.0 [pH] Normal 5-9 [facility] Comment on above: Performed By: #### U A #### [facility] [address] [place] [address] Dr. Mary Kay Vaca SPEC GRAVITY 1.010 Normal 1.005-<=1. 025 [facility] Comment on above: Performed By: #### U A #### [facility] [address] [place] [address] Dr. Mary Kay Vaca UA PROTEIN Negative Normal NEGATIVE/ TRACE [facility] Comment on above: Performed By: #### U A #### [facility] [address] [place] [address] Dr. Mary Kay Vaca Urobilinogen Qn (U) 0.2 {Ric'U}/dL Normal 0.2 - 1. 0 [facility] Comment on above: Performed By: #### U A #### [facility] [address] [place] [address] Dr. Mary Kay Vaca URIC ACID SERUMon 02-11-2023 Urate [Mass/Vol] 5.7 mg/dL Normal 3.5-7.2 [facility] Comment on above: Performed By: #### R ENAL, LIPID #### [facility] [address] [place] [address] Dr. Mary Kay Vaca URINE T PROTEIN CREAT RATIOo n 02-11-2023 UR TOTAL PROTEIN <6.0 Normal <=12.0 [facility] Comment on above: Performed By: #### B MP, BNP #### [facility] [address] [place] [address] Dr. Mary Kay Vaca URINE CREAT <13.00 Critically low 20.00-300. 00 [facility] Comment on above: Performed By: #### B MP, BNP #### [facility] [address] [place] [address] Dr. Mary Kay Vaca VITAMIN D 25 OHon 02-11-2023 VIT D 25-OH 35.9 ng/mL Normal [facility] Comment on above: Performed By: #### B MP, BNP #### [facility] [address] [place] [address] Dr. Mary Kay Vaca VIT D RANGES SEE BELOW Normal [facility] Comment on above: Result Comment: <20 ng/mL Vit D deficient 20 - <30 ng/mL Vit D insufficient 30 - 100 ng/mL Vit D sufficient >100 ng/mL Potential Toxicity Performed By: #### B MP, BNP #### [facility] [address] [place] [address] Dr. Mary Kay Vaca C-PEPTIDE, SERUMon C-Peptide, Serum 9.0 ng/mL Critically high 1.1-4.4 [facility] Comment on above: Result Comment: C-Pe ptide reference interval is for fasting patients. Performed By: #### B MP, BNP #### [facility] [address] [place] [address] Dr. Mary Kay Vaca LIPID PROFILEon 12-23-2022 CHOL-HDL RATIO NORM SEE BELOW Normal [facility] Comment on above: Result Comment: 3.3 - 4.4 LOW RISK 4.4 - 7.1 AVERAGE RISK 7.1 - 11.0 MODERATE RISK >11.0 HIGH RISK Performed By: #### R ENAL, LIPID #### [facility] [address] [address] [address] Mary Kay Vaca Cholesterol [Mass/Vol] 174 mg/dL Normal <=200 [facility] Comment on above: Performed By: #### R ENAL, LIPID #### [facility] [address] [address] [address] Mary Kay Vaca Cholesterol in HDL [Mass/Vol] 61 mg/dL Critically high 40-60 [facility] Comment on above: Performed By: #### R ENAL, LIPID #### [facility] [address] [address] [address] Mary Kay Vaca Cholesterol in LDL [Mass/Vol] 87.0 mg/dL Normal [facility] Comment on above: Performed By: #### R ENAL, LIPID #### [facility] [address] [place] [address] Dr. Mary Kay Vaca Cholesterol.total/Chol esterol in HDL [Mass ratio] 2.9 {ratio} Normal [facility] Comment on above: Performed By: #### R ENAL, LIPID #### [facility] [address] [place] [address] Dr. Mary Kay Vaca HDL NORMAL > or = 60 mg/dl - LO W CARDIOVASCULAR RISK <40 mg/dl - HIGH CARDIOVASCULAR RISK Normal [facility] Comment on above: Performed By: #### R ENAL, LIPID #### [facility] [address] [place] [address] Dr. Mary Kay Vaca LDL CALC NORMAL SEE BELOW Normal [facility] Comment on above: Result Comment: <100 mg/dl OPTIMAL 100 - 129 mg/dl NEAR OR ABOVE OPTIMAL 130 - 159 mg/dl BORDERLINE HIGH 160 - 189 mg/dl HIGH >190 mg/dl VERY HIGH Performed By: #### R ENAL, LIPID #### [facility] [address] [place] [address] Dr. Mary Kay Vaca Triglyceride [Mass/Vol] 130 mg/dL Normal <=150 [facility] Comment on above: Performed By: #### R ENAL, LIPID #### [facility] [address] [place] [address] Dr. Mary Kay Vaca VLDL CALC 26.0 mg/dL Normal [facility] Comment on above: Performed By: #### R ENAL, LIPID #### [facility] [address] [place] [address] Dr. Mary Kay Vaca MICROALB CREAT RATIO RANDOMo n 12-23-2022 mALB 2.2 mg/L Normal <=30.0 [facility] Comment on above: Performed By: #### B MP, BNP #### [facility] [address] [place] [address] Dr. Mary Kay Vaca MALB CR RATIO RANGE SEE BELOW Normal [facility] Comment on above: Result Comment: NO M ICROALBUMINURIA 0-29 MG/G CLINICAL MICROALBUMINURIA 30-300 MG/G MACROALBUMINURIA >300 MG/G Performed By: #### B MP, BNP #### [facility] [address] [place] [address] Dr. Mary Kay Vaca URINE CREAT <13.00 Critically low 20.00-300. 00 [facility] Comment on above: Performed By: #### B MP, BNP #### [facility] [address] [place] [address] Dr. Mary Kay Vaca RENAL FUNCTION PANELon 12-23 Albumin [Mass/Vol] 3.7 g/dL Normal 3.4-5.0 [facility] Comment on above: Performed By: #### R ENAL, LIPID #### [facility] [address] [place] [address] Dr. Mary Kay Vaca Calcium [Mass/Vol] 9.4 mg/dL Normal 8.5-10.1 [facility] Comment on above: Performed By: #### R ENAL, LIPID #### [facility] [address] [place] [address] Dr. Mary Kay Vaca Chloride [Moles/Vol] 107 mmol/L Normal 98-107 [facility] Comment on above: Performed By: #### R ENAL, LIPID #### [facility] [address] [place] [address] Dr. Mary Kay Vaca CO2 [Moles/Vol] 27.0 mmol/L Normal 21.0-32.0 [facility] Comment on above: Performed By: #### R ENAL, LIPID #### [facility] [address] [address] [address] Mary Kay Vaca Creatinine [Mass/Vol] 1.46 mg/dL Critically high 0.70-1.30 [facility] Comment on above: Performed By: #### R ENAL, LIPID #### [facility] [address] [address] [address] Mary Kay Vaca EGFR-AF BRUNEIAN 55 mL/min/1.73m2 Critically low >=60 [facility] Comment on above: Performed By: #### R ENAL, LIPID #### [facility] [address] [place] [address] Dr. Mary Kay Vaca EGFR-NON AF BRUNEIAN 46 mL/min/1.73m2 Critically low >=60 [facility] Comment on above: Performed By: #### R ENAL, LIPID #### [facility] [address] [place] [address] Dr. Mary Kay Vaca Glucose [Mass/Vol] 163 mg/dL Critically high 74-106 [facility] Comment on above: Performed By: #### R ENAL, LIPID #### [facility] [address] [place] [address] Dr. Mary Kay Vaca Phosphate [Mass/Vol] 2.6 mg/dL Normal 2.6-4.7 [facility] Comment on above: Performed By: #### R ENAL, LIPID #### [facility] [address] [place] [address] Dr. Mary Kay Vaca Potassium [Moles/Vol] 4.0 mmol/L Normal 3.5-5.1 [facility] Comment on above: Performed By: #### R ENAL, LIPID #### [facility] [address] [place] [address] Dr. Mary Kay Vaca Sodium [Moles/Vol] 145 mmol/L Normal 136-145 [facility] Comment on above: Performed By: #### R ENAL, LIPID #### [facility] [address] [place] [address] Dr. Mary Kay Vaca Urea nitrogen [Mass/Vol] 32.0 mg/dL Critically high 7.0-18.0 [facility] Comment on above: Performed By: #### R ENAL, LIPID #### [facility] [address] [place] [address] Dr. Mary Kay Vaca MAGNESIUMon 11-11-2022 Magnesium [Mass/Vol] 1.4 mg/dL Critically low 1.8-2.4 [facility] Comment on above: Performed By: #### R ENAL, LIPID #### [facility] [address] [place] [address] Dr. Mary Kay Vaca PROF CHEM 8 (BAS METB)on Anion gap [Moles/Vol] 13.7 mmol/L Normal [facility] Comment on above: Performed By: #### R ENAL, LIPID #### [facility] [address] [place] [address] Dr. Mary Kay Vaca Calcium [Mass/Vol] 9.8 mg/dL Normal 8.5-10.1 [facility] Comment on above: Performed By: #### R ENAL, LIPID #### [facility] [address] [place] [address] Dr. Mary Kay Vaca Chloride [Moles/Vol] 105 mmol/L Normal 98-107 [facility] Comment on above: Performed By: #### R ENAL, LIPID #### [facility] [address] [place] [address] Dr. Mary Kay Vaca CO2 [Moles/Vol] 27.2 mmol/L Normal 21.0-32.0 [facility] Comment on above: Performed By: #### R ENAL, LIPID #### [facility] [address] [place] [address] Dr. Mary Kay Vaca Creatinine [Mass/Vol] 1.45 mg/dL Critically high 0.70-1.30 [facility] Comment on above: Performed By: #### R ENAL, LIPID #### [facility] [address] [place] [address] Dr. Mary Kay Vaca EGFR-AF BRUNEIAN 56 mL/min/1.73m2 Critically low >=60 [facility] Comment on above: Performed By: #### R ENDIMAS, LIPID #### [facility] [address] [address] [address] Mary Kay Vaca EGFR-NON AF BRUNEIAN 46 mL/min/1.73m2 Critically low >=60 [facility] Comment on above: Performed By: #### R ENDIMAS, LIPID #### [facility] [address] [address] [address] Mary Kay Vaca Glucose [Mass/Vol] 234 mg/dL Critically high 74-106 [facility] Comment on above: Performed By: #### R ENDIMAS, LIPID #### [facility] [address] [place] [address] Dr. Mary Kay Vaca Potassium [Moles/Vol] 3.9 mmol/L Normal 3.5-5.1 [facility] Comment on above: Performed By: #### R ENDIMAS, LIPID #### [facility] [address] [place] [address] Dr. Mary Kay Vaca Sodium [Moles/Vol] 142 mmol/L Normal 136-145 [facility] Comment on above: Performed By: #### R ENDIMAS, LIPID #### [facility] [address] [place] [address] Dr. Mary Kay Vaca Urea nitrogen [Mass/Vol] 38.0 mg/dL Critically high 7.0-18.0 [facility] Comment on above: Performed By: #### R ENDIMAS, LIPID #### [facility] [address] [place] [address] Dr. Mary Kay Vaca Urea nitrogen/Creatinine [Mass ratio] 26.2 mg/mg Normal [facility] Comment on above: Performed By: #### R ENDIMAS, LIPID #### [facility] [address] [place] [address] Dr. Mary Kay Vaca PTH INTACTon 09-18-2022 PTH, Intact 39 pg/mL Normal 15-65 [facility] Comment on above: Performed By: #### R ENDIMAS, LIPID #### [facility] [address] [place] [address] Dr. Mary Kay Vaac FERRITINon 09-17-2022 Ferritin [Mass/Vol] 703.0 ng/mL Critically high 26.0-388.0 [facility] Comment on above: Performed By: #### B MP, BNP #### [facility] [address] [place] [address] Dr. Mary Kay Vaca HEMOGRAM AND PLATELon 2022 Hematocrit (Bld) [Volume fraction] 37.2 % Critically low 42.0-54.0 [facility] Comment on above: Performed By: #### R ENDIMAS, LIPID #### [facility] [address] [place] [address] Dr. Mary Kay Vaca Hemoglobin (Bld) [Mass/Vol] 12.6 g/dL Critically low 14.0-18.0 [facility] Comment on above: Performed By: #### R ENDIMAS, LIPID #### [facility] [address] [place] [address] Dr. Mary Kay Vaca MCH (RBC) [Entitic mass] 32.7 pg Normal 25.9-34.0 [facility] Comment on above: Performed By: #### R ENDIMAS, LIPID #### [facility] [address] [place] [address] Dr. Mary Kay Vaca MCHC (RBC) [Mass/Vol] 33.9 g/dL Normal 29.9-35.2 [facility] Comment on above: Performed By: #### R ENAL, LIPID #### [facility] [address] [place] [address] Dr. Mary Kay Vaca MCV (RBC) [Entitic vol] 96.6 fL Critically high 80.0-94.0 [facility] Comment on above: Performed By: #### R ENAL, LIPID #### [facility] [address] [place] [address] Dr. Mary Kay Vaca PLT 172 103/ul Normal 150-450 [facility] Comment on above: Performed By: #### R ENAL, LIPID #### [facility] [address] [place] [address] Dr. Mary Kay Vaca RBC 3.85 106/ul Critically low 4.70-6.10 [facility] Comment on above: Performed By: #### R ENAL, LIPID #### [facility] [address] [place] [address] Dr. Mary Kay Vaca WBC 6.8 103/ul Normal 4.0-11.0 [facility] Comment on above: Performed By: #### R ENAL, LIPID #### [facility] [address] [place] [address] Dr. Mary Kay Vaca IRON AND TIBCon 09-17-2022 % SATURATION 38.9 % Normal [facility] Comment on above: Performed By: #### B MP, BNP #### [facility] [address] [place] [address] Dr. Mary Kay Vaca Iron [Mass/Vol] 121.0 ug/dL Normal 65.0-175.0 [facility] Comment on above: Performed By: #### B MP, BNP #### [facility] [address] [place] [address] Dr. Mary Kay Vaca TIBC DIRECT 311.0 ug/dL Normal 250.0-450. 0 [facility] Comment on above: Performed By: #### B MP, BNP #### [facility] [address] [place] [address] Dr. Mary Kay Vaca MAGNESIUMon 09-17-2022 Magnesium [Mass/Vol] 1.6 mg/dL Critically low 1.8-2.4 [facility] Comment on above: Performed By: #### C MP, MG, URIC #### [facility] [address] [place] [address] Dr. Mary Kay Vaca PROF 14(COMP METB)on 023 Albumin [Mass/Vol] 4.0 g/dL Normal 3.4-5.0 [facility] Comment on above: Performed By: #### C MP, MG, URIC #### [facility] [address] [place] [address] Dr. Mary Kay Vaca Albumin/Globulin [Mass ratio] 0.9 {ratio} Normal [facility] Comment on above: Performed By: #### C MP, MG, URIC #### [facility] [address] [address] [address] Mary Kay Vaca ALP [Catalytic activity/Vol] 164 U/L Critically high 46-116 [facility] Comment on above: Performed By: #### C MP, MG, URIC #### [facility] [address] [address] [address] Mary Kay Vaca ALT [Catalytic activity/Vol] 82 U/L Critically high 16-63 [facility] Comment on above: Performed By: #### C MP, MG, URIC #### [facility] [address] [address] [address] Mary Kay Vaca Anion gap [Moles/Vol] 12.7 mmol/L Normal [facility] Comment on above: Performed By: #### C MP, MG, URIC #### [facility] [address] [place] [address] Dr. Mary Kay Vaca AST [Catalytic activity/Vol] 61 U/L Critically high 15-37 [facility] Comment on above: Performed By: #### C MP, MG, URIC #### [facility] [address] [address] [address] Mary Kay Vaca Bilirubin [Mass/Vol] 0.5 mg/dL Normal 0.2-1.0 [facility] Comment on above: Performed By: #### C MP, MG, URIC #### [facility] [address] [address] [address] Mary Kay Vaca Calcium [Mass/Vol] 9.7 mg/dL Normal 8.5-10.1 [facility] Comment on above: Performed By: #### C MP, MG, URIC #### [facility] [address] [address] [address] Mary Kay Vaca Chloride [Moles/Vol] 100 mmol/L Normal 98-107 [facility] Comment on above: Performed By: #### C MP, MG, URIC #### [facility] [address] [address] [address] Mary Kay Vaca CO2 [Moles/Vol] 30.4 mmol/L Normal 21.0-32.0 [facility] Comment on above: Performed By: #### C MP, MG, URIC #### [facility] [address] [address] [address] Mary Kay Vaca Creatinine [Mass/Vol] 1.30 mg/dL Normal 0.70-1.30 [facility] Comment on above: Performed By: #### C MP, MG, URIC #### [facility] [address] [place] [address] Dr. Mary Kay Vaca EGFR-AF BRUNEIAN >60 Normal >=60 [facility] Comment on above: Performed By: #### C MP, MG, URIC #### [facility] [address] [place] [address] Dr. Mary Kay Vaca EGFR-NON AF BRUNEIAN 52 mL/min/1.73m2 Critically low >=60 [facility] Comment on above: Performed By: #### C MP, MG, URIC #### [facility] [address] [place] [address] Dr. Mary Kay Vaca Globulin (S) [Mass/Vol] 4.7 g/dL Normal [facility] Comment on above: Performed By: #### C MP, MG, URIC #### [facility] [address] [place] [address] Dr. Mary Kay Vaca Glucose [Mass/Vol] 193 mg/dL Critically high 74-106 [facility] Comment on above: Performed By: #### C MP, MG, URIC #### [facility] [address] [place] [address] Dr. Mary Kay Vaca Potassium [Moles/Vol] 4.1 mmol/L Normal 3.5-5.1 [facility] Comment on above: Performed By: #### C MP, MG, URIC #### [facility] [address] [place] [address] Dr. Mary Kay Vaca Protein [Mass/Vol] 8.7 g/dL Critically high 6.4-8.2 [facility] Comment on above: Performed By: #### C MP, MG, URIC #### [facility] [address] [place] [address] Dr. Mary Kay Vaca Sodium [Moles/Vol] 139 mmol/L Normal 136-145 [facility] Comment on above: Performed By: #### C MP, MG, URIC #### [facility] [address] [place] [address] Dr. Mary Kay Vaca Urea nitrogen [Mass/Vol] 33.0 mg/dL Critically high 7.0-18.0 [facility] Comment on above: Performed By: #### C MP, MG, URIC #### [facility] [address] [place] [address] Dr. Mary Kay Vaca Urea nitrogen/Creatinine [Mass ratio] 25.4 mg/mg Normal [facility] Comment on above: Performed By: #### C MP, MG, URIC #### [facility] [address] [place] [address] Dr. Mary Kay Vaca UA RANDOMon 09-17-2022 Bilirubin Ql (U) Negative Normal NEGATIVE [facility] Comment on above: Performed By: #### B MP, BNP #### [facility] [address] [place] [address] Dr. Mary Kay Vaca Clarity (U) CLEAR Normal CLEAR [facility] Comment on above: Performed By: #### B MP, BNP #### [facility] [address] [place] [address] Dr. Mary Kay Vaca Color (U) LT. YELLOW Normal YELLOW [facility] Comment on above: Performed By: #### B MP, BNP #### [facility] [address] [place] [address] Dr. Mary Kay Vaca Glucose Ql (U) 100 mg/dl Abnormal NEGATIVE [facility] Comment on above: Performed By: #### B MP, BNP #### [facility] [address] [place] [address] Dr. Mar yKay Vaca Hemoglobin Ql (U) TRACE-LYSED Abnormal NEGATIVE [facility] Comment on above: Performed By: #### B MP, BNP #### [facility] [address] [place] [address] Dr. Mary Kay Vaca Ketones Ql (U) Negative Normal NEGATIVE [facility] Comment on above: Performed By: #### B MP, BNP #### [facility] [address] [place] [address] Dr. Mary Kay Vaca LEUKOCYTES Negative Normal NEGATIVE [facility] Comment on above: Performed By: #### B MP, BNP #### [facility] [address] [place] [address] Dr. Mary Kay Vaca Nitrite Ql (U) Negative Normal NEGATIVE [facility] Comment on above: Performed By: #### B MP, BNP #### [facility] [address] [place] [address] Dr. Mary Kay Vaca pH (U) 7.0 [pH] Normal 5-9 [facility] Comment on above: Performed By: #### B MP, BNP #### [facility] [address] [place] [address] Dr. Mary Kay Vaca SPEC GRAVITY 1.010 Normal 1.005-<=1. 025 [facility] Comment on above: Performed By: #### B MP, BNP #### [facility] [address] [place] [address] Dr. Mary Kay Vaca UA PROTEIN Negative Normal NEGATIVE/ TRACE [facility] Comment on above: Performed By: #### B MP, BNP #### [facility] [address] [place] [address] Dr. Mary Kay Vaca Urobilinogen Qn (U) 0.2 {Ric'U}/dL Normal 0.2 - 1. 0 [facility] Comment on above: Performed By: #### B MP, BNP #### [facility] [address] [place] [address] Dr. Mary Kay Vaca URIC ACID SERUMon 09-17-2022 Urate [Mass/Vol] 4.8 mg/dL Normal 3.5-7.2 [facility] Comment on above: Performed By: #### C MP, MG, URIC #### [facility] [address] [place] [address] Dr. Mary Kay Vaca URINE T PROTEIN CREAT RATIOo n 09-17-2022 Protein (U) [Mass/Vol] 19.9 mg/dL Critically high <=12.0 [facility] Comment on above: Performed By: #### R ENAL, LIPID #### [facility] [address] [place] [address] Dr. Mary Kay Vaca UR PROT CREAT RAT 1.31 Normal [facility] Comment on above: Performed By: #### R ENAL, LIPID #### [facility] [address] [place] [address] Dr. Mary Kay Vaca URINE CREAT 15.14 mg/dL Critically low 20.00-300. 00 [facility] Comment on above: Performed By: #### R ENAL, LIPID #### [facility] [address] [place] [address] Dr. Mary Kay Vaca VIT B12 AND FOLATEon 023 Cobalamin (Vitamin B12) [Mass/Vol] 1181.0 pg/mL Critically high 193.0-986. 0 [facility] Comment on above: Performed By: #### B MP, BNP #### [facility] [address] [place] [address] Dr. Mary Kay Vaca FOLATE 9.90 ng/mL Normal 8.60-58.90 [facility] Comment on above: Performed By: #### B MP, BNP #### [facility] [address] [place] [address] Dr. Mary Kay Vaca VITAMIN D 25 OHon 09-17-2022 VIT D 25-OH 41.7 ng/mL Normal [facility] Comment on above: Performed By: #### C MP, MG, URIC #### [facility] [address] [place] [address] Dr. Mary Kay Vaca VIT D RANGES SEE BELOW Normal [facility] Comment on above: Result Comment: <20 ng/mL Vit D deficient 20 - <30 ng/mL Vit D insufficient 30 - 100 ng/mL Vit D sufficient >100 ng/mL Potential Toxicity Performed By: #### C MP, MG, URIC #### [facility] [address] [place] [address] Dr. Mary Kay Vaca VC CONSULT FOLLOWUPon 2021 VC CONSULT FOLLOWUP Patient: SANTIAGO PAULINE Jasso Exam Date: 07/30/2022 : 1935 Gender:M Ordering : DR ALVA MAI M.D. Admission #: [id number] Family : Order #: [id number] CLICK HERE TO VIEW EXAM RADIOLOGY REPORT [...] on 07/30/2022 at 14:41 Normal [facility] VC EXT VENOUS LT LIMITEDon 1 09-29-2021 VC EXT VENOUS LT LIMITED Patient: CARLO SUAREZ Exam Date: 07/30/2022 : 1935 Gender:M Ordering : DR ALVA MAI M.D. Admission #: [id number] Family : Order #: [id number] CLICK HERE TO VIEW EXAM RADIOLOGY REPORT [...] Alva Mai MD on 07/30/2022 at 14:26 [facility] VC INJ FOAM SCLERO W US MLTI on 07-23-2022 VC INJ FOAM SCLERO W US MLTI Patient: SUAREZ CARLO Romero Exam Date: 07/23/2022 : 1935 Gender:M Ordering : DR ALVA MAI M.D. Admission #: [id number] Family : Order #: [id number] CLICK HERE TO VIEW EXAM RADIOLOGY REPORT [...] immediately (more content not included)... Normal [facility] VC CONSULT FOLLOWUPon 2021 VC CONSULT FOLLOWUP Patient: PAULINE SUAREZ Exam Date: 07/09/2022 : 1935 Gender:M Ordering : DR ALVA MAI M.D. Admission #: [id number] Family : Order #: [id number] CLICK HERE TO VIEW EXAM RADIOLOGY REPORT [...] on 07/09/2022 at 14:02 Normal [facility] VC VENOUS REFLUX LT LMTon VC VENOUS REFLUX LT LMT Patient: CARLO SUAREZ Exam Date: 07/09/2022 : 1935 Gender:M Ordering : DR ALVA MAI M.D. Admission #: [id number] Family : Order #: [id number] CLICK HERE TO VIEW EXAM RADIOLOGY REPORT [...] visualized in SSV. 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 Mid/med [...] MD on 07/09/2022 at 13:38 Normal [facility] BNPon 04-08-2022 Natriuretic peptide B (Bld) [Mass/Vol] 1185.0 pg/mL Normal <=1,800.0 [facility] Comment on above: Performed By: #### B MP, BNP #### [facility] [address] [place] [address] Dr. Mary Kay Vaca PROF CHEM 8 (BAS METB)on Anion gap [Moles/Vol] 10.9 mmol/L Normal [facility] Comment on above: Performed By: #### B MP, BNP #### [facility] [address] [place] [address] Dr. Mary Kay Vaca Calcium [Mass/Vol] 8.8 mg/dL Normal 8.5-10.1 [facility] Comment on above: Performed By: #### B MP, BNP #### [facility] [address] [place] [address] Dr. Mary Kay Vaca Chloride [Moles/Vol] 107 mmol/L Normal 98-107 [facility] Comment on above: Performed By: #### B MP, BNP #### [facility] [address] [place] [address] Dr. Mary Kay Vaca CO2 [Moles/Vol] 29.0 mmol/L Normal 21.0-32.0 [facility] Comment on above: Performed By: #### B MP, BNP #### [facility] [address] [place] [address] Dr. Mary Kay Vaca Creatinine [Mass/Vol] 1.31 mg/dL Critically high 0.70-1.30 [facility] Comment on above: Performed By: #### B MP, BNP #### [facility] [address] [place], [place] [id number] Dr. Mary Kay Vaca EGFR-AF BRUNEIAN >60 Normal >=60 [facility] Comment on above: Performed By: #### B MP, BNP #### [facility] [address] [place] [address] Dr. Mary Kay Vaca EGFR-NON AF BRUNEIAN 52 mL/min/1.73m2 Critically low >=60 [facility] Comment on above: Performed By: #### B MP, BNP #### [facility] [address] [place] [address] Dr. Mary Kay Vaca Glucose [Mass/Vol] 121 mg/dL Critically high 74-106 [facility] Comment on above: Performed By: #### B MP, BNP #### [facility] [address] [place] [address] Dr. Mary Kay Vaca Potassium [Moles/Vol] 3.9 mmol/L Normal 3.5-5.1 [facility] Comment on above: Performed By: #### B MP, BNP #### [facility] [address] [place] [address] Dr. Mary Kay Vaca Sodium [Moles/Vol] 143 mmol/L Normal 136-145 [facility] Comment on above: Performed By: #### B MP, BNP #### [facility] [address] [place] [address] Dr. Mary Kay Vaca Urea nitrogen [Mass/Vol] 29.0 mg/dL Critically high 7.0-18.0 [facility] Comment on above: Performed By: #### B MP, BNP #### [facility] [address] [place] [address] Dr. Mary Kay Vaca Urea nitrogen/Creatinine [Mass ratio] 22.1 mg/mg Normal [facility] Comment on above: Performed By: #### B MP, BNP #### [facility] [address] [place] [address] Dr. Mary Kay Vaca GLYCOHEMOGLOBIN A1Con 2021 ADA RECOMMENDATION SEE BELOW Normal [facility] Comment on above: Result Comment: ADA RECOMMENDED LIMIT 4.0 - 6.0 ADA THERAPEUTIC TARGET < 7.0 ACTION SUGGESTED > 7.0 Performed By: #### B BRADLY, BNP #### [facility] [address] [place] [address] Dr. Mary Kay Vaca Glucose [Mass/Vol] 120 mg/dL Normal [facility] Comment on above: Performed By: #### B MP, BNP #### [facility] [address] [place] [address] Dr. Mary Kay Vaca HbA1c (Bld) [Mass fraction] 5.8 % Normal 4.5-6.2 [facility] Comment on above: Performed By: #### B MP, BNP #### [facility] [address] [place] [address] Dr. Mary Kay Vaca PTH INTACTon 03-27-2022 PTH, Intact 43 pg/mL Normal 15-65 [facility] Comment on above: Performed By: #### B MP, BNP #### [facility] [address] [place] [address] Dr. Mary Kay Vaca FERRITINon 03-25-2022 Ferritin [Mass/Vol] 30.0 ng/mL Normal 26.0-388.0 [facility] Comment on above: Performed By: #### F ERR, VITAD, FETIBC #### [facility] [address] [place] [address] Dr. Mary Kay Vaca HEMOGRAM AND PLATELon 2021 Hematocrit (Bld) [Volume fraction] 32.9 % Critically low 42.0-54.0 [facility] Comment on above: Performed By: #### B MP, BNP #### [facility] [address] [place] [address] Dr. Mary Kay Vaca Hemoglobin (Bld) [Mass/Vol] 9.9 g/dL Critically low 14.0-18.0 [facility] Comment on above: Performed By: #### B MP, BNP #### [facility] [address] [place] [address] Dr. Mary Kay Vaca MCH (RBC) [Entitic mass] 28.7 pg Normal 25.9-34.0 [facility] Comment on above: Performed By: #### B MP, BNP #### [facility] [address] [place] [address] Dr. Mary Kay Vaca MCHC (RBC) [Mass/Vol] 30.1 g/dL Normal 29.9-35.2 [facility] Comment on above: Performed By: #### B MP, BNP #### [facility] [address] [place] [address] Dr. Mary Kay Vaca MCV (RBC) [Entitic vol] 95.4 fL Critically high 80.0-94.0 [facility] Comment on above: Performed By: #### B MP, BNP #### [facility] [address] [place] [address] Dr. Mary Kay Vcaa PLT 247 103/ul Normal 150-450 [facility] Comment on above: Performed By: #### B MP, BNP #### [facility] [address] [place] [address] Dr. Mary Kay Vaca RBC 3.45 106/ul Critically low 4.70-6.10 [facility] Comment on above: Performed By: #### B MP, BNP #### [facility] [address] [place] [address] Dr. Mary Kay Vaca WBC 6.9 103/ul Normal 4.0-11.0 [facility] Comment on above: Performed By: #### B MP, BNP #### [facility] [address] [place] [address] Dr. Mary Kay Vaca IRON AND TIBCon 03-25-2022 % SATURATION 12.4 % Normal [facility] Comment on above: Performed By: #### R ENAL, LIPID #### [facility] [address] [place] [address] Dr. Mary Kay Vaca Iron [Mass/Vol] 47.0 ug/dL Critically low 65.0-175.0 [facility] Comment on above: Performed By: #### R ENAL, LIPID #### [facility] [address] [place] [address] Dr. Mary Kay Vaca TIBC DIRECT 380.0 ug/dL Normal 250.0-450. 0 [facility] Comment on above: Performed By: #### R ENAL, LIPID #### [facility] [address] [address] [address] Mary Kay Vaca PROF 14(COMP METB)on 022 Albumin [Mass/Vol] 3.3 g/dL Critically low 3.4-5.0 [facility] Comment on above: Performed By: #### R ENAL, LIPID #### [facility] [address] [address] [address] Mary Kay Vaca Albumin/Globulin [Mass ratio] 0.8 {ratio} Normal [facility] Comment on above: Performed By: #### R ENAL, LIPID #### [facility] [address] [address] [address] Mary Kay Vaca ALP [Catalytic activity/Vol] 203 U/L Critically high 46-116 [facility] Comment on above: Performed By: #### R ENAL, LIPID #### [facility] [address] [place] [address] Dr. Mary Kay Vaca ALT [Catalytic activity/Vol] 41 U/L Normal 16-63 [facility] Comment on above: Performed By: #### R ENAL, LIPID #### [facility] [address] [address] [address] Mary Kay Vaca Anion gap [Moles/Vol] 13.4 mmol/L Normal [facility] Comment on above: Performed By: #### R ENAL, LIPID #### [facility] [address] [address] [address] Mary Kay Vaca AST [Catalytic activity/Vol] 41 U/L Critically high 15-37 [facility] Comment on above: Performed By: #### R ENAL, LIPID #### [facility] [address] [address] [address] Mary Kay Vaca Bilirubin [Mass/Vol] 0.4 mg/dL Normal 0.2-1.0 [facility] Comment on above: Performed By: #### R ENAL, LIPID #### [facility] [address] [address] [address] Mary Kay Vaca Calcium [Mass/Vol] 9.0 mg/dL Normal 8.5-10.1 [facility] Comment on above: Performed By: #### R ENAL, LIPID #### [facility] [address] [address] [address] Mary Kay Vaca Chloride [Moles/Vol] 105 mmol/L Normal 98-107 [facility] Comment on above: Performed By: #### R ENAL, LIPID #### [facility] [address] [address] [address] Mary Kay Vaca CO2 [Moles/Vol] 24.9 mmol/L Normal 21.0-32.0 [facility] Comment on above: Performed By: #### R ENAL, LIPID #### [facility] [address] [address] [address] Mary Kay Vaca Creatinine [Mass/Vol] 0.97 mg/dL Normal 0.70-1.30 [facility] Comment on above: Performed By: #### R ENAL, LIPID #### [facility] [address] [place] [address] Dr. Mary Kay Vaca EGFR-AF BRUNEIAN >60 Normal >=60 [facility] Comment on above: Performed By: #### R ENAL, LIPID #### [facility] [address] [address] [address] Mary Kay Vaca EGFR-NON AF BRUNEIAN >60 Normal >=60 [facility] Comment on above: Performed By: #### R ENAL, LIPID #### [facility] [address] [place] [address] Dr. Mary Kay Vaca Globulin (S) [Mass/Vol] 4.1 g/dL Normal [facility] Comment on above: Performed By: #### R ENAL, LIPID #### [facility] [address] [address] [address] Mary Kay Vaca Glucose [Mass/Vol] 113 mg/dL Critically high 74-106 [facility] Comment on above: Performed By: #### R ENAL, LIPID #### [facility] [address] [address] [address] Mary Kay Vaca Potassium [Moles/Vol] 4.3 mmol/L Normal 3.5-5.1 [facility] Comment on above: Performed By: #### R ENAL, LIPID #### [facility] [address] [address] [address] Mary Kay Vaca Protein [Mass/Vol] 7.4 g/dL Normal 6.4-8.2 [facility] Comment on above: Performed By: #### R ENAL, LIPID #### [facility] [address] [place] [address] Dr. Mary Kay Vaca Sodium [Moles/Vol] 139 mmol/L Normal 136-145 [facility] Comment on above: Performed By: #### R ENAL, LIPID #### [facility] [address] [place] [address] Dr. Mary Kay Vaca Urea nitrogen [Mass/Vol] 21.0 mg/dL Critically high 7.0-18.0 [facility] Comment on above: Performed By: #### R ENAL, LIPID #### [facility] [address] [place] [address] Dr. Mary Kay Vaca Urea nitrogen/Creatinine [Mass ratio] 21.6 mg/mg Normal [facility] Comment on above: Performed By: #### R ENAL, LIPID #### [facility] [address] [place] [address] Dr. Mary Kay Vaca UA RANDOMon 03-25-2022 Bilirubin Ql (U) Negative Normal NEGATIVE [facility] Comment on above: Performed By: #### B MP, BNP #### [facility] [address] [place] [address] Dr. Mary Kay Vaca Clarity (U) CLEAR Normal CLEAR [facility] Comment on above: Performed By: #### B MP, BNP #### [facility] [address] [place] [address] Dr. Mary Kay Vaca Color (U) LT. YELLOW Normal YELLOW [facility] Comment on above: Performed By: #### B MP, BNP #### [facility] [address] [place] [address] Dr. Mary Kay Vaca Glucose Ql (U) Negative Normal NEGATIVE [facility] Comment on above: Performed By: #### B MP, BNP #### [facility] [address] [place] [address] Dr. Mary Kay Vaca Hemoglobin Ql (U) Negative Normal NEGATIVE [facility] Comment on above: Performed By: #### B MP, BNP #### [facility] [address] [place] [address] Dr. Mary Kay Vaca Ketones Ql (U) Negative Normal NEGATIVE [facility] Comment on above: Performed By: #### B MP, BNP #### [facility] [address] [place] [address] Dr. Mary Kay Vaca LEUKOCYTES Negative Normal NEGATIVE [facility] Comment on above: Performed By: #### B MP, BNP #### [facility] [address] [place] [address] Dr. Mary Kay Vaca Nitrite Ql (U) Negative Normal NEGATIVE [facility] Comment on above: Performed By: #### B MP, BNP #### [facility] [address] [place] [address] Dr. Mary Kay Vaca pH (U) 6.5 [pH] Normal 5-9 [facility] Comment on above: Performed By: #### B MP, BNP #### [facility] [address] [place] [address] Dr. Mary Kay Vaca SPEC GRAVITY 1.010 Normal 1.005-<=1. 025 [facility] Comment on above: Performed By: #### B MP, BNP #### [facility] [address] [place] [address] Dr. Mary Kay Vaca UA PROTEIN Negative Normal NEGATIVE/ TRACE [facility] Comment on above: Performed By: #### B MP, BNP #### [facility] [address] [place] [address] Dr. Mary Kay Vaca Urobilinogen Qn (U) 0.2 {Ric'U}/dL Normal 0.2 - 1. 0 [facility] Comment on above: Performed By: #### B MP, BNP #### [facility] [address] [place] [address] Dr. Mary Kay Vaca URIC ACID SERUMon 03-25-2022 Urate [Mass/Vol] 3.5 mg/dL Normal 3.5-7.2 [facility] Comment on above: Performed By: #### R ENAL, LIPID #### [facility] [address] [place] [address] Dr. Mary Kay Vaca URINE T PROTEIN CREAT RATIOo n 03-25-2022 Protein (U) [Mass/Vol] 21.4 mg/dL Critically high <=12.0 [facility] Comment on above: Performed By: #### B MP, BNP #### [facility] [address] [place] [address] Dr. Mary Kay Vaca UR PROT CREAT RAT 2.12 Normal [facility] Comment on above: Performed By: #### B MP, BNP #### [facility] [address] [place] [address] Dr. Mary Kay Vaca URINE CREAT 10.09 mg/dL Critically low 20.00-300. 00 [facility] Comment on above: Performed By: #### B MP, BNP #### [facility] [address] [place] [address] Dr. Mary Kay Vaca VITAMIN D 25 OHon 03-25-2022 VIT D 25-OH 37.6 ng/mL Normal [facility] Comment on above: Performed By: #### F ERR, VITAD, FETIBC #### [facility] [address] [place] [address] Dr. Mary Kay Vaca VIT D RANGES SEE BELOW Normal [facility] Comment on above: Result Comment: <20 ng/mL Vit D deficient 20 - <30 ng/mL Vit D insufficient 30 - 100 ng/mL Vit D sufficient >100 ng/mL Potential Toxicity Performed By: #### F ERR, VITAD, FETIBC #### [facility] [address] [place] [address] Dr. Mary Kay Vaca VC CONSULT FOLLOWUPon 2021 VC CONSULT FOLLOWUP Patient: PAULINE SUAREZ DESMOND Jasso Exam Date: 03/12/2022 : 1935 Gender:M Ordering : DR ALVA MAI M.D. Admission #: [id number] Family : Order #: [id number] CLICK HERE TO VIEW EXAM RADIOLOGY REPORT [...] on 03/12/2022 at 15:34 Normal [facility] VC EXT VENOUS RT LIMITEDon 0 03-12-2022 VC EXT VENOUS RT LIMITED Patient: CARLO SUAREZEunice Exam Date: 03/12/2022 : 1935 Gender:M Ordering : DR ALVA MAI M.D. Admission #: [id number] Family : Order #: [id number] CLICK HERE TO VIEW EXAM RADIOLOGY REPORT [...] on 03/12/2022 at 15:19 Normal [facility] ECHOCARDIO M/2D COMPLETEon 0 03-08-2022 ECHOCARDIO M/2D COMPLETE Patient: CARLO SUAREZ Exam Date: 03/08/2022 : 1935 Gender:M Ordering : JERICA MUÑIZ Admission #: [id number] Family : Order #: [id number] CLICK HERE TO VIEW EXAM ECHOCARDIOGRAM REPORT [...] Area(A4C): 29.80 cm2 Left Atrium Systolic Volume(A2C): 19100 mm3 Left Atrium Systolic Volume(A4C): 841168 mm3 Mitral Valve MV E to A Ratio: 1.70 Deceleration [place]: 5630 mm/s2 Mitral Valve A-Wave Peak Velocity: 64.20 cm/s Mitral Valve E-Wave Peak Velocity: 108.00 cm/s Right Ventricle RV Internal Diastolic Dimension: 3.61 cm Aorta AO Root Diam: 3.00 cm Aortic Valve Peak Velocity (Antegrade Flow): 187.00 cm/s, 205.00 cm/s AoV Area (Peak Shaheen): 1.14 cm2 AoV Area (VTI): 1.22 cm2 Deceleration [place]: 2340 mm/s2 Pressure Half-Time: 518 ms Peak [...] Franklin M.D. on 03/11/2022 at 12:38 Normal [facility] VC INJ FOAM SCLERO W US MLTI on 03-07-2022 VC INJ FOAM SCLERO W US MLTI Patient: CARLO SUAREZ Exam Date: 03/07/2022 : 1935 Gender:M Ordering : DR ALVA MAI M.D. Admission #: [id number] Family : Order #: [id number] CLICK HERE TO VIEW EXAM RADIOLOGY REPORT [...] Cabrera M.D. on 03/07/2022 at 15:56 Normal [facility] VC CONSULT FOLLOWUPon 2021 VC CONSULT FOLLOWUP Patient: PAULINE SUAREZEunice Exam Date: 03/01/2022 : 1935 Gender:M Ordering : DR ALVA MAI M.D. Admission #: [id number] Family : Order #: [id number] CLICK HERE TO VIEW EXAM RADIOLOGY REPORT [...] Cabrera M.D. on 03/01/2022 at 14:47 Normal [facility] VC EXT VENOUS RT LIMITEDon 0 03-01-2022 VC EXT VENOUS RT LIMITED Patient: SUAREZCARLO HEARNEunice Exam Date: 03/01/2022 : 1935 Gender:M Ordering : DR ALVA MAI M.D. Admission #: [id number] Family : Order #: [id number] CLICK HERE TO VIEW EXAM RADIOLOGY REPORT [...] on 03/01/2022 at 14:41 Normal [facility] Cardiovascular Lab Reporton 07-29-2020 Cardiovascular Lab Report [facility] Patient [facility]: [facility] MR #: [id number] Department of Physician: John Peralta M.D. Division of Service Date: 07/28/2020 Cardiology Birthdate: 1935 Adult Cardiovascular Room #: [address] [place] [address] Cardiovascular Laboratory Report CLINICAL PRESENTATION: The patient [...] ultrasound guidance and micropuncture access technique, a 6-Kazakh sheath was placed in the right internal [...] 56%, AO sat 97%. Electronically Signed by: Elnea Jones M.D. 08/01/2020 03:20 P Elena Jones M.D. Date Dict: 07/28/2020/04:48 P/Elena Jones M.D. Date Trans: 07/29/2020 05:43 Isra/alphonso [id number] cc: Jose Brewer M.D. [address] [facility] [address] Jerica Muñiz, HEAT TREAT SUPERVISOR [address] [facility] [address] [place] [id number] Normal [facility] *SARS-CoV-2 COVID-19on 07-27 [id number] Not Detected Normal Not Detected [facility] Comment on above: Order Comment: The A ptima SARS-CoV-2 assay is a nucleic acid amplification test intended for the qualitative detection of RNA from SARS-CoV-2 isolated and purified from nasopharyngeal (BEAM RACKER),oropharyngeal (OP), nasal swab, sputum, and bronchoalveolar lavage (BAL) specimens from patients with signs and symptoms of infection who are suspected of COVID-19. Results are for the identification of SARS-CoV-2 RNA. The SARS-CoV-2 RNA is generally detectable during the acute phase of infection. The Aptima SARS-CoV-2 Assay on the [place] [employer] [place] [employer] system is intended for use by laboratory personnel specifically instructed and trained in the operation of the [place] [employer] [place] [employer] system. The Aptima SARS-CoV-2 assay is [...] information. Performed By: #### 3 [id number] #### [address] Ambulatory Clinical Summaryo 05-23-2020 Ambulatory Clinical Summary {[id number] [facility] Vital Signs Date Time Vital Sign Value Performing Clinician Facility 08-25-2024 13:42-0500 Body height 167.6 cm Chanelle Benz MD Work Phone: [facility] 08-25-2024 13:42-0500 Body mass index (BMI) [Ratio] 29.54 kg/m2 Chanelle Benz MD Work Phone: [facility] 08-25-2024 13:42-0500 Body weight 83.01 kg Chanelle Benz MD Work Phone: [facility] 08-25-2024 13:42-0500 Diastolic blood pressure 57 mm[Hg] Chanelle Benz MD Work Phone: [facility] 08-25-2024 13:42-0500 Heart rate 80 /min Chanelle Benz MD Work Phone: [facility] 08-25-2024 13:42-0500 Systolic blood pressure 90 mm[Hg] Chanelle Benz MD Work Phone: [facility] 08-20-2024 11:32-0500 Body height 167.6 cm Jose Brewer MD Work Phone: [facility] 08-20-2024 11:32-0500 Body mass index (BMI) [Ratio] 29.38 kg/m2 Jose Brewer MD Work Phone: [facility] 08-20-2024 11:32-0500 Body temperature 96.21 [degF] Jose Brewer MD Work Phone: [facility] 08-20-2024 11:32-0500 Body weight 82.56 kg Jose Brewer MD Work Phone: [facility] 08-20-2024 11:32-0500 Diastolic blood pressure 50 mm[Hg] Jose Brewer MD Work Phone: [facility] 08-20-2024 11:32-0500 Heart rate 84 /min Jose Brewer MD Work Phone: [facility] 08-20-2024 11:32-0500 Respiratory rate 20 /min Jose Brewer MD Work Phone: [facility] 08-20-2024 11:32-0500 SaO2% (BldA) [Mass fraction] 90 % Jose Brewer MD Work Phone: [facility] 08-20-2024 11:32-0500 Systolic blood pressure 114 mm[Hg] Jose Brewer MD Work Phone: [facility] 06-17-2024 10:41-0400 Body height 167.[address] [facility] 06-17-2024 10:41-0400 Body mass index (BMI) [Ratio] 28.7 kg/m2 [facility] 06-17-2024 10:41-0400 Body weight 80.[address] [facility] 06-17-2024 10:41-0400 Diastolic blood pressure 53 mm[Hg] [facility] 06-17-2024 10:41-0400 Heart rate 94 /min [facility] 06-17-2024 10:41-0400 Systolic blood pressure 86 mm[Hg] [facility] 05-04-2024 13:09-0400 Body height 167.[address] [facility] 05-04-2024 13:09-0400 Body mass index (BMI) [Ratio] 29.9 kg/m2 [facility] 05-04-2024 13:09-0400 Body temperature 96.5 [degF] [facility] 05-04-2024 13:09-0400 Body weight 84.[address] [facility] 05-04-2024 13:09-0400 Diastolic blood pressure 48 mm[Hg] [facility] 05-04-2024 13:09-0400 Heart rate 66 /min [facility] 05-04-2024 13:09-0400 Respiratory rate 18 /min [facility] 05-04-2024 13:09-0400 SaO2% (BldA) [Mass fraction] 98 % [facility] 05-04-2024 13:09-0400 Systolic blood pressure 116 mm[Hg] [facility] 12-25-2023 10:34-0400 Body height 167 cm Brisa Enciso MD Work Phone: [facility] 12-25-2023 10:34-0400 Body mass index (BMI) [Ratio] 30.77 kg/m2 Brisa Enciso MD Work Phone: [facility] 12-25-2023 10:34-0400 Body weight 85.82 kg Brisa Enciso MD Work Phone: [facility] 12-25-2023 10:34-0400 Diastolic blood pressure 70 mm[Hg] Brisa Enciso MD Work Phone: [facility] 12-25-2023 10:34-0400 Systolic blood pressure 155 mm[Hg] Brisa Enciso MD Work Phone: [facility] 10-30-2023 14:15-0500 Body height 167.6 cm Jose Brewer MD Work Phone: [facility] 10-30-2023 14:15-0500 Body mass index (BMI) [Ratio] 30.99 kg/m2 Jose Brewer MD Work Phone: [facility] 10-30-2023 14:15-0500 Body temperature 96.3 [degF] Jose Brewer MD Work Phone: [facility] 10-30-2023 14:15-0500 Body weight 87.09 kg Jose Brewer MD Work Phone: [facility] 10-30-2023 14:15-0500 Diastolic blood pressure 60 mm[Hg] Jose Brewer MD Work Phone: [facility] 10-30-2023 14:15-0500 Heart rate 90 /min Jose Brewer MD Work Phone: [facility] 10-30-2023 14:15-0500 SaO2% (BldA) [Mass fraction] 96 % Jose Brewer MD Work Phone: [facility] 10-30-2023 14:15-0500 Systolic blood pressure 106 mm[Hg] Jose Brewer MD Work Phone: [facility] 07-10-2023 14:00-0400 Body height 167.64 cm [facility] [employer] Other [employer] Other 07-10-2023 14:00-0400 Body mass index (BMI) [Ratio] 30.18 kg/m2 [facility] Other [employer] Other 07-10-2023 14:00-0400 Body temperature 96.8 [degF] [facility] Other [employer] Other 07-10-2023 14:00-0400 Body weight 84.82 kg [facility] [employer] Other [employer] Other 07-10-2023 14:00-0400 Diastolic blood pressure 69 mm[Hg] Aziz Bakhous Other [employer] Other 07-10-2023 14:00-0400 Respiratory rate 18 /min Aziz Bakhous Other [employer] Other 07-10-2023 14:00-0400 SaO2% (BldA) [Mass fraction] 93 % Aziz Bakhous Other [employer] Other 07-10-2023 14:00-0400 Systolic blood pressure 110 mm[Hg] Aziz Bakhous Other [employer] Other 03-07-2023 11:40-0400 Body height 167.64 cm Aziz Bakhous Other [employer] Other 03-07-2023 11:40-0400 Body mass index (BMI) [Ratio] 31.44 kg/m2 Aziz Bakhous Other [employer] Other 03-07-2023 11:40-0400 Body temperature 97 [degF] Aziz Bakhous Other [employer] Other 03-07-2023 11:40-0400 Body weight 88.36 kg Aziz Bakhous Other [employer] Other 03-07-2023 11:40-0400 Diastolic blood pressure 84 mm[Hg] Aziz Bakhous Other [employer] Other 03-07-2023 11:40-0400 Respiratory rate 18 /min Aziz Bakhous Other [employer] Other 03-07-2023 11:40-0400 SaO2% (BldA) [Mass fraction] 96 % Aziz Bakhous Other [employer] Other 03-07-2023 11:40-0400 Systolic blood pressure 154 mm[Hg] Aziz Bakhous Other [employer] Other 09-25-2022 14:40-0500 Body height 167.64 cm Aziz Bakhous Other [employer] Other 09-25-2022 14:40-0500 Body mass index (BMI) [Ratio] 29.05 kg/m2 Aziz Bakhous Other [employer] Other 09-25-2022 14:40-0500 Body temperature 96.7 [degF] Aziz Bakhous Other [employer] Other 09-25-2022 14:40-0500 Body weight 81.65 kg Aziz Bakhous Other [employer] Other 09-25-2022 14:40-0500 Diastolic blood pressure 74 mm[Hg] Aziz Bakhous Other [employer] Other 09-25-2022 14:40-0500 Respiratory rate 18 /min Aziz Bakhous Other [employer] Other 09-25-2022 14:40-0500 SaO2% (BldA) [Mass fraction] 96 % Aziz Bakhous Other [employer] Other 09-25-2022 14:40-0500 Systolic blood pressure 108 mm[Hg] Kaur Robins Other [facility] [employer] Other 04-24-2022 14:32-0400 Body temperature 97.7 [degF] MD Kaur Robins Work Phone: [facility] 04-24-2022 14:32-0400 Diastolic blood pressure 61 mm[Hg] MD Kaur Robins Work Phone: [facility] 04-24-2022 14:32-0400 Heart rate 66 /min MD Kaur Robins Work Phone: [facility] 04-24-2022 14:32-0400 Systolic blood pressure 137 mm[Hg] MD Kaur Robins Work Phone: [facility] 04-24-2022 13:20-0400 Respiratory rate 16 /min MD Kaur Robins Work Phone: [facility] 04-24-2022 13:20-0400 SaO2% (BldA) [Mass fraction] 97 % MD Kaur Robins Work Phone: [facility] 04-02-2022 12:40-0400 Body height 167.64 cm Kaur Robins Other [facility] [employer] Other 04-02-2022 12:40-0400 Body mass index (BMI) [Ratio] 28.08 kg/m2 Kaur Robins Other [facility] [employer] Other 04-02-2022 12:40-0400 Body temperature 96.6 [degF] Kaur Robins Other [employer] Other 04-02-2022 12:40-0400 Body weight 78.93 kg Kaur Robins Other [employer] Other 04-02-2022 12:40-0400 Diastolic blood pressure 77 mm[Hg] Aziz Bakhous Other [employer] Other 04-02-2022 12:40-0400 Respiratory rate 18 /min Aziz Bakhous Other [employer] Other 04-02-2022 12:40-0400 SaO2% (BldA) [Mass fraction] 96 % Aziz Bakhous Other [employer] Other 04-02-2022 12:40-0400 Systolic blood pressure 146 mm[Hg] Aziz Bakhous Other [employer] Other 01-22-2022 12:20-0400 Body height 167.64 cm Aziz Bakhous Other [employer] Other 01-22-2022 12:20-0400 Body mass index (BMI) [Ratio] 28.08 kg/m2 Aziz Bakhous Other [employer] Other 01-22-2022 12:20-0400 Body temperature 96.1 [degF] Aziz Bakhous Other [employer] Other 01-22-2022 12:20-0400 Body weight 78.93 kg Aziz Bakhous Other [employer] Other 01-22-2022 12:20-0400 Diastolic blood pressure 60 mm[Hg] Aziz Bakhous Other [employer] Other 01-22-2022 12:20-0400 Respiratory rate 20 /min Aziz Bakhous Other [employer] Other 01-22-2022 12:20-0400 SaO2% (BldA) [Mass fraction] 97 % Kaur Robins Other [employer] Other 01-22-2022 12:20-0400 Systolic blood pressure 104 mm[Hg] Kaur Robins [employer] Other Encounters Encounter Date Encounter Type Care Provider Facility Start: 09-13-2024 End: 09-13-2024 Refill Charlotte Abrams NP Work Phone: [facility] Comment on above: 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, 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 ([facility]); Type 2 diabetes mellitus with hyperglycemia, without long-term current use of insulin ([facility]) Start: 09-06-2024 End: 09-06-2024 ambulatory AB [facility] Start: 08-25-2024 End: 08-25-2024 Bamboo flowsheet Chanelle Benz MD Work Phone: [facility] Start: 08-25-2024 End: 08-25-2024 Bamboo flowsheet Chanelle Benz MD Work Phone: [facility] Start: 08-25-2024 End: 08-25-2024 Patient encounter procedure Chanelle Benz MD Work Phone: [facility] Comment on above: Left ear impacted ce rumen Start: 08-25-2024 End: 08-25-2024 ambulatory CHANELLE BENZ Not Available Start: 08-20-2024 End: 08-20-2024 Bambosukumar flowsantonio Brewer MD Work Phone: [facility] Start: 08-20-2024 End: 08-20-2024 Karen Brewer MD Work Phone: [facility] Start: 08-20-2024 End: 08-20-2024 Office outpatient visit 15 minutes Jose Brewer MD Work Phone: [facility] Comment on above: Bilateral hearing lo ss due to cerumen impaction (Primary Dx); Type 2 diabetes mellitus with diabetic chronic kidney disease ([facility]/HCC); Chronic kidney disease, stage 3b (HCC) ([facility]) Start: 08-20-2024 End: 08-20-2024 ambulatory JOSE BREWER Not Available Start: 07-29-2024 End: 07-29-2024 Refill Pepper Aguero RELIGIOUS LEADER-HEAT TREAT SUPERVISOR Work Phone: [facility] Start: 07-16-2024 End: 07-18-2024 Refill Delia Watkins MD Work Phone: [facility] Comment on above: 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, with long-term current use of insulin ([facility]) (Primary Dx) Start: 07-02-2024 End: 07-02-2024 Patient encounter procedure MD Jose Brewer Work Phone: [facility] [place] Work Phone: Start: 07-02-2024 End: 07-02-2024 ambulatory MD Jose Brewre Work Phone: [facility] Work Phone: Start: 06-24-2024 End: 06-24-2024 Patient encounter procedure MD Jose Brewer Work Phone: [facility] Work Phone: Start: 06-24-2024 End: 06-24-2024 ambulatory MD Jose Brewer Work Phone: [facility] Work Phone: Start: 06-17-2024 End: 06-17-2024 Patient encounter procedure MD Jose Brewer Work Phone: [facility] [place] Work Phone: Start: 06-17-2024 End: 06-17-2024 ambulatory MD Jose Brewer Work Phone: [facility] Work Phone: Start: 06-17-2024 End: 06-17-2024 ambulatory [facility] Work Phone: Start: 06-17-2024 End: 06-17-2024 Patient encounter procedure [facility] Gastroenterology Work Phone: Start: 05-04-2024 End: 05-04-2024 ambulatory [facility] Work Phone: Start: 05-04-2024 End: 05-04-2024 Patient encounter procedure [facility] Nephrology [place] Work Phone: Start: 04-29-2024 End: 04-29-2024 ambulatory JOSE BREWER Not Available Start: 04-26-2024 Non-patient / Non-visit [facility] Work Phone: Start: 03-15-2024 End: 03-15-2024 ambulatory LINCOLN CHANELLE Not Available Start: 03-11-2024 End: 03-11-2024 ambulatory [facility] Start: 03-09-2024 End: 03-10-2024 Emergency department patient visit ZULAY GARCIA [facility] Start: 03-09-2024 End: 03-09-2024 ambulatory [facility] Start: 02-29-2024 End: 03-01-2024 Emergency department patient visit NISHANT ARAYA [facility] Start: 02-11-2024 Evaluation and management of inpatient [facility] Start: 02-10-2024 End: 02-10-2024 ambulatory [facility] Start: 02-10-2024 Encounter for other preprocedural examination [facility] Start: 01-27-2024 End: 01-27-2024 Evaluation and management of inpatient [facility] Start: 01-27-2024 End: 01-27-2024 Evaluation and management of inpatient [facility] Start: 01-22-2024 End: 01-22-2024 ambulatory [facility] Start: 01-21-2024 End: 01-21-2024 Evaluation and management of inpatient [facility] Start: 01-19-2024 End: 01-19-2024 ambulatory [facility] Start: 01-08-2024 End: 01-08-2024 ambulatory [facility] Start: 12-25-2023 End: 12-25-2023 ambulatory [facility] Start: 12-25-2023 End: 12-25-2023 Office outpatient visit 40 minutes Brisa Enciso MD Work Phone: [facility] Comment on above: Left carotid artery stenosis (Primary Dx); Chronic kidney disease, stage 3b ([facility]) Start: 12-18-2023 Chart abstracting Brisa dawn MD Work Phone: [facility] Start: 12-18-2023 End: 12-18-2023 ambulatory RAMESH Damico [facility] Start: 11-03-2023 End: 11-03-2023 ambulatory [facility] Start: 10-30-2023 End: 10-30-2023 Office outpatient visit 25 minutes Jose Brewer MD Work Phone: [facility] Comment on above: 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, 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 ([facility]) (Primary Dx); Chronic heart failure with preserved ejection fraction (HFpEF) ([facility]/HCC); Benign essential hypertension (CMS/HCC); Primary osteoarthritis of shoulders, bilateral; Gastroesophageal reflux disease without esophagitis; Skin candidiasis; PAD (peripheral artery disease) ([facility]/HCC) Start: 10-30-2023 End: 10-30-2023 ambulatory JOSE BREWER Not Available Start: 10-30-2023 Bamboo flowsheet Jose Brewer MD Work Phone: [facility] Start: 10-30-2023 Bamboo flowsheet Jose Brewer MD Work Phone: [facility] Start: 08-04-2023 End: 08-04-2023 ambulatory Aziz Bakhous Other [employer] Other Start: 08-04-2023 Telephone encounter Aziz Bakhous [facility] Start: 07-10-2023 End: 07-10-2023 ambulatory Aziz Bakhous Other [employer] Other Start: 07-10-2023 Office outpatient vi sit 25 minutes Aziz Bakhous [facility] Start: 03-07-2023 End: 03-07-2023 ambulatory Aziz Bakhous Other [employer] Other Start: 03-07-2023 Office outpatient vi sit 25 minutes Aziz Bakhous [facility] Start: 02-11-2023 End: 02-12-2023 ambulatory AZIZ BAKHOUS Facility:[facility] Start: 12-23-2022 End: 12-24-[address] JOSE BREWER Facility:[facility] Start: 11-11-2022 End: 11-12-[address] JOSE BREWER Facility:[facility] Start: 09-25-2022 End: 09-25-2022 ambulatory Aziz Bakhous Other [employer] Other Start: 09-25-2022 Office outpatient vi sit 25 minutes Aziz Bakhous [facility] Start: 09-17-2022 End: 09-18-2022 ambulatory AZIZ BAKHOUS Facility:[facility] Start: 07-30-2022 End: 07-31-[address] JOSE BREWER Facility:[facility] Start: 07-23-2022 End: 07-24-[address] JOSE BREWER Facility:[facility] Start: 07-09-2022 End: 07-10-[address] ALVA MAI Facility:[facility] Start: 05-16-2022 ambulatory JERICA MUÑIZ Facility :[facility] Start: 04-24-2022 End: 04-24-2022 Discharged Recurring MD Kaur Robins Work Phone: [facility] Start: 04-08-2022 End: 04-09-[address] JAIDEN JONES Facility:[facility] Start: 04-04-2022 End: 04-05-[address] JOSE BREWER Facility:[facility] Start: 04-02-2022 End: 04-02-2022 ambulatory Kaur Robins Other [employer] Other Start: 04-02-2022 Office outpatient vi sit [...] Faci lity:[facility] Start: 01-22-2022 End: 01-22-2022 ambulatory Kaur Robins Other [employer] Other Start: 01-22-2022 Office outpatient vi sit 25 minutes Kaur Robins [facility] [place] Start: 01-18-2022 End: 01-18-2022 ambulatory Kaur Robins Other [employer] Other Start: 01-18-2022 Telephone encounter Kaur Robins [facility] Start: 01-14-2022 End: 01-14-2022 ambulatory Kaur Robins Other [employer] Other Start: 01-14-2022 Telephone encounter Kaur Robins [facility] Start: 10-23-2021 End: 10-23-2021 ambulatory Kaur Gonsaless Other [employer] Other Start: 10-23-2021 Telephone encounter Kaur Gonsaless [facility] Start: 07-28-2020 End: 07-29-2020 Patient encounter procedure REFERRED SELF Facility:[facility] Procedures Date Procedure Procedure Detail Performing Clinician Start: 07-02-2024 Ultrasonography of liver MD Jose Brewer Work Phone: Start: 06-24-2024 Ultrasound elastography of liver MD Jose Brewer Work Phone: Start: 03-11-2024 History of carotid endarterectomy History of CEA (carotid endarterectomy) Delia Watkins MD Work Phone: Start: 02-11-2024 Adult depression screening assessment Pepper COTE Work Phone: Plan of Treatment Date Care Activity Detail Author Start: 11-20-2028 DTaP,Tdap and Td Vaccines (2 - Td or Tdap) DTaP,Tdap and Td Vaccines (2 - Td or Tdap) [facility] Start: 07-22-2026 Glaucoma screening Diabetes: R etinopathy Screening [facility] Start: 11-16-2025 Glaucoma screening Diabetes: R etinopathy Screening [facility] Start: 08-20-2025 Medicare Annual Well ness (AWV) Medicare Annual Wellness (AWV) [facility] Start: 05-06-2025 Urine screening for protein Diabetes: Urine Protein Screening [facility] Start: 03-11-2025 Adult BMI Screening Adult BMI Screen ing [facility] Start: 03-11-2025 Tobacco Screening Tobacco Screening [facility] Start: 02-10-2025 Depression Screening Depression Scre ening [facility] Start: 12-24-2024 Adult BMI Screening Adult BMI Screen ing [facility] Start: 12-24-2024 Tobacco Screening Tobacco Screening [facility] Start: 11-18-2024 Urine screening for protein Diabetes: Urine Protein Screening [facility] Start: 11-06-2024 Hemoglobin A1c measurement Diabetes: Hemoglobin A1C [facility] Start: 11-02-2024 End: 11-02-2024 Patient encounter procedure 11/02/2024 1:00 PM EST Office Visit [facility] [address] [place] [address] Jose Brewer MD [address] [facility] [place] [id number] [facility] Start: 09-29-2024 End: 09-29-2024 Patient encounter procedure 09/29/2024 1:40 PM EST Office Visit [facility] [address] [place] [id number] Delia Watkins MD [address] [place] [address] [facility] Start: 08-25-2024 End: 08-25-2024 Patient encounter procedure 08/25/2024 2:00 PM EST Office Visit [facility] [address] [place] [address] Chanelle Benz MD [address] [place] [address] 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 [facility] Comment on above: Bilateral hearing lo ss due to cerumen impaction Start: 08-20-2024 End: 08-20-2024 Patient encounter procedure 08/20/2024 11:45 AM EST Office Visit [facility] [address] [place] [address] Jose Brewer MD [address] [place] [address] Arrived [facility] Comment on above: Arrived Start: 07-24-2024 Adult BMI Screening Adult BMI Screen ing [facility] Start: 07-24-2024 Tobacco Screening Tobacco Screening [facility] Start: 06-24-2024 [facility] Start: 06-17-2024 Actin smooth muscle IgG Ab [Units/volume] in Serum [facility] Start: 06-17-2024 Itazy-6-cazvmwezvde. tumo r marker [Mass/volume] in Serum or Plasma [facility] Start: 06-17-2024 Ceruloplasmin [Mass/volume] in Serum or Plasma [facility] Start: 06-17-2024 Hepatitis A virus Ab [Presence] in Serum by Immunoassay [facility] Start: 06-17-2024 Hepatitis A virus antibody, IgM type [facility] Start: 06-17-2024 Hepatitis B core antibody measurement [facility] Start: 06-17-2024 Hepatitis B core antibody measurement, IgM type [facility] Start: 06-17-2024 Hepatitis B virus surface Ab [Presence] in Serum [facility] Start: 06-17-2024 IgG [Mass/volume] in Serum or Plasma [facility] Start: 06-17-2024 Lipoprotein a [Moles/volume] in Serum or Plasma [facility] Start: 06-17-2024 Mitochondria M2 IgG Ab [Units/volume] in Serum [facility] Start: 06-17-2024 [facility] Start: 05-21-2024 Hemoglobin A1c measurement Diabetes: Hemoglobin A1C [facility] Start: 05-16-2024 COVID-19 Vaccine ( season) COVID-19 Vaccine ( season) [facility] Start: 05-16-2024 Influenza vaccination [facility] Start: 04-29-2024 End: 04-29-2024 Patient encounter procedure 04/29/2024 1:00 PM EDT Office Visit [facility] [address] [place] [address] Jose Brewer MD [address] [place] [phone] [facility] Start: 01-08-2024 End: 01-08-2024 Patient encounter procedure 01/08/2024 1:00 PM EDT Office Visit [facility] [address] [place] [address] Brisa Enciso MD [address], [address] [address] [facility] Start: 12-25-2023 End: 12-25-2023 Patient encounter procedure 12/25/2023 9:00 AM EDT Office Visit [facility] [address] [place] [address] Brisa Enciso MD [address], [address] [address] [facility] Start: 10-30-2023 End: 10-30-2023 Patient encounter procedure 10/30/2023 2:15 PM EST Office Visit [facility] [address] [place] [address] Jose Brewer MD [address] [place] [phone] Arrived [facility] Comment on above: Arrived Start: 08-05-2021 Hemoglobin A1c measurement Diabetes: Hemoglobin A1C [facility] Start: 2001 Fall Risk Screening Fall Risk Screen ing [facility] Start: 1954 Adult BMI Follow Up Plan Adult BMI Follow Up Plan [facility] Start: 1948 Depression Screening Depression Scre ening [facility] Start: 1946 Glaucoma screening Diabetes: R etinopathy Screening [facility] Start: 1936 Medicare Annual Well ness (AWV) Medicare Annual Wellness (AWV) [facility] Start: 1936 Medicare Annual Well ness Visit Medicare Annual Wellness Visit [facility] Alpha 1 antitrypsin [Mass/volume] in Serum or Plasma [facility] Alpha 1 antitrypsin phenotyping [Identifier] in Serum or Plasma by Immunofixation [facility] Comprehensive metabo lic 1999 panel - Serum or Plasma [facility] Hepatitis B virus surface Ag [Presence] in Serum or Plasma by Immunoassay [facility] Hepatitis C virus Ig G Ab [Presence] in Serum or Plasma by Immunoassay [facility] HFE gene mutations f ound [Identifier] in Blood or Tissue by Molecular genetics method Nominal [facility] Homogenous nuclear A b pattern [Titer] in Serum [facility] Nuclear Ab [Titer] i n Serum [facility] Renal function 1999 panel - Serum or Plasma [facility] Immunizations Immunization Date Immunization Notes Care Provider Fa cility 06-01-2024 influenza, high dose seasonal, preservative-free Charlotte Abrams BEAM RACKER Work Phone: [facility] 06-01-2024 Pneumococcal Conjuga te PCV 20 Charlotte Abrams BEAM RACKER Work Phone: [facility] 01-09-2024 ABRYSVO - Respirator y syncytial virus (RSV), vaccine, bivalent, protein subunit RSV prefusion F, diluent reconstituted, 0.5 mL, PF Delia Watkins MD Work Phone: [facility] 06-13-2023 Influenza, High-dose Seasonal, Quadrivalent, Preservative Free Delia Watkins MD Work Phone: [facility] 06-13-2023 influenza virus vacc ine, unspecified formulation Brisa Enciso MD Work Phone: [facility] 10-31-2022 Pneumococcal Conjuga te PCV 20 Delia Watkins MD Work Phone: [facility] 10-31-2022 tetanus toxoid, redu robert diphtheria toxoid, and acellular pertussis vaccine, adsorbed Delia Watkins MD Work Phone: [facility] 06-25-2022 Influenza, High-dose Seasonal, Quadrivalent, Preservative Free Delia Watkins MD Work Phone: [facility] 06-15-2022 influenza virus vacc ine, unspecified formulation Delia Watkins MD Work Phone: [facility] 03-13-2022 zoster vaccine recombinant Delia Watkins MD Work Phone: [facility] 01-31-2022 pneumococcal polysaccharide vaccine, 23 valent Delia Watkins MD Work Phone: [facility] 12-14-2021 zoster vaccine recombinant Delia Watkins MD Work Phone: [facility] 07-19-2021 Influenza, Seasonal, Quadrivalent, Adjuvanted Delia Watkins MD Work Phone: [facility] 05-06-2021 pneumococcal conjuga te vaccine, 13 valent Brisa Enciso MD Work Phone: [facility] 04-15-2021 influenza virus vacc ine, unspecified formulation Delia Watkins MD Work Phone: [facility] 06-16-2020 influenza, high dose seasonal, preservative-free Delia Watkins MD Work Phone: [facility] 11-25-2018 influenza, injectabl e, quadrivalent, preservative free Delia Watkins MD Work Phone: [facility] 11-20-2018 tetanus toxoid, redu robert diphtheria toxoid, and acellular pertussis vaccine, adsorbed Brisa Enciso MD Work Phone: [facility] 07-01-2018 influenza, injectabl e, quadrivalent, preservative free Delia Watkins MD Work Phone: [facility] 06-15-2017 pneumococcal polysaccharide vaccine, 23 valent Delia Watkins MD Work Phone: [facility] 05-16-2016 influenza virus vacc ine, unspecified formulation Delia Watkins MD Work Phone: [facility] 11-28-2015 pneumococcal polysaccharide vaccine, 23 valent Delia Watkins MD Work Phone: [facility] 11-28-2015 pneumococcal vaccine , unspecified formulation Delia Watkins MD Work Phone: [facility] 05-16-2015 influenza virus vacc ine, unspecified formulation Delia Watkins MD Work Phone: [facility] 12-21-2014 zoster vaccine, live Delia guerra MD Work Phone: [facility] 11-28-2014 pneumococcal conjuga te vaccine, 13 valent Delia Watkins MD Work Phone: [facility] 09-15-2014 influenza virus vacc ine, unspecified formulation Delia Watkins MD Work Phone: [facility] 01-28-2014 tetanus toxoid, redu robert diphtheria toxoid, and acellular pertussis vaccine, adsorbed Delia Watkins MD Work Phone: [facility] 06-15-2013 influenza virus vacc ine, unspecified formulation Delia Watkins MD Work Phone: [facility] Payers Date Payer Category Payer Medicaid [employer] MED[employer]ARE A DVANTAGE [id number] 2022 Medicare [id number] 2022 Medicare HMO [employer] MEDICARE [id number] 1959 Medicare [id number] [id number] 1959 Self-pay [id number] 1959 Unknown [id number] 1936 Unknown [id number] 2.16.840.1.400075.3.579.2.647 1936 Unknown [id number] 2.16.840.1.874216.3.579.2.593 1936 Unknown [id number] 2.16.840.1.468673.3.579.2.593 1936 Unknown [id number] 2.16.840.1.627218.3.579.2.593 1936 Unknown [id number] 2.16.840.1.396647.3.579.2.593 1936 Unknown [id number] 2.16.840.1.736881.3.579.2.593 1936 Unknown [id number] 2.16.840.1.585484.3.579.2.593 1936 Unknown [id number] 2.16.840.1.375121.3.579.2.593 1936 Unknown [id number] 2.16.840.1.655280.3.579.2.593 1936 Unknown [id number] 2.16.840.1.497496.3.579.2.593 1936 Unknown [id number] 2.16.840.1.696271.3.579.2.593 1936 Unknown [id number] 2.16.840.1.808033.3.579.2.593 1936 Unknown [id number] 2.16.840.1.822773.3.579.2.593 1936 Unknown [id number] 2.16.840.1.521649.3.579.2.593 1936 Unknown [id number] 2.16.840.1.557594.3.579.2.593 1936 Unknown [id number] 2.16840.1.949682.3.579.2.593 1936 Unknown [id number] 2.16840.1.106229.3.579.2.593 1936 Unknown [id number] 2.16840.1.359411.3.579.2.128 1936 Unknown [id number] 2.16840.1.627910.3.579.2.1286 1936 Unknown [id number] 2.16840.1.604424.3.579.2.1286 1936 Unknown [id number] 2.16.840.1.302791.3.579.2.1286 1936 Unknown [id number] 2.16.840.1.364485.3.579.2.128 1936 Unknown [id number] 2.16.840.1.360479.3.579.2.1286 1936 Unknown [id number] 2.16.840.1.854116.3.579.2.1285 1936 Unknown [id number] 2.16.840.1.386933.3.579.2.1285 1936 Unknown [id number] 2.16.840.1.001392.3.579.2.1285 1936 Unknown [id number] 2.16.840.1.027173.3.579.2.1285 1936 Unknown [id number] 2.16.840.1.297633.3.579.2.1285 1936 Unknown [id number] 2.16.840.1.446644.3.579.2.1285 1936 Unknown [id number] 2.16.840.1.843800.3.579.2.1285 1936 Unknown [id number] 2.16.840.1.000096.3.579.2.1285 1936 Unknown [id number] 2.16.840.1.407487.3.579.2.1285 1936 Unknown [id number] 2.16.840.1.488586.3.579.2.1285 1936 Unknown [id number] 2.16.840.1.687340.3.579.2.1285 1936 Unknown [id number] 2.16.840.1.598429.3.579.2.1258 1936 Unknown [id number] 2.16.840.1.921750.3.579.2.9 1936 Unknown [id number] 2.16.840.1.117142.3.579.2.1258 1936 Unknown [id number] 2.16.840.1.915666.3.579.2.9 1936 Unknown [id number] 2.16.840.1.691667.3.579.2.1259 Medicare Medicare [id number] Unknown [id number] Unknown [id number] 2.16.840.1.623065.3.579.2.531 Unknown [id number] 2.16.840.1.905432.3.579.2.531 Unknown [id number] 2.16.840.1.955965.3.579.2.531 Social History Date Type Detail Facility Unknown if ever smoked [facility] [employer] Other Start: 10-26-2020 End: 10-08-2023 Sex Assigned At [facility] Other Start: 1935 Sex Assigned At Male [facility] Start: 10-08-2023 End: 12-25-2023 Tobacco smoking status AKIS Ex-smoker [facility] End: 09-15-2011 History of tobacco use Current smoker [facility] End: 09-15-2011 History of tobacco use Cigarette Smoker [facility] History of tobacco use Pipe Smoker [facility] History of tobacco use Cigar Smoker [facility] Start: 10-08-2023 End: 12-25-2023 Tobacco use and exposure Smokeless tobacco non-user [...] 1 occasion? Never [facility] Start: 12-18-2023 End: 12-25-2023 Alcohol intake Current non-drinker of alcohol (finding) [email or web address] [facility] Start: 04-29-2024 End: 08-27-2024 Alcoholic beverage intake Ex-drinker (finding) [facility] Has the [employer], [email or web address], [employer], or water company threatened to shut off services in your home in past 12Mo [facility] Start: 04-20-2015 Sex Male (finding) [facility] Medical Equipment Procedure Code Equipment Code Equipment Original Text Equipment Identifier Dates [id number] Start: 12-31-2016 End: 09-13-2024 1 each by Other route if needed [id number] Start: 08-06-2023 ACCU-CHEK SOFTCL IX LANCETS lancets [id number] Start: 12-31-2016 Patch Cv 8x.8cm N-Pyrg Tpr End Photofix Decellularized Bvn Rpl [id number] - [id number] Start: 02-11-2024 Use as instructed [id number] Start: 09-13-2024 3 times a day [id number] Start: 09-13-2024 USE ONE STRIP TO TEST FOUR TIMES A DAY [id number] Start: 09-02-2024 End: 09-13-2024 Goals Date Patient Goal Desired Activity /State Personal health goal Comment on above: Formatting of this n ote might be different from the original. Evaluation of progress towards goal: Safe dc return home with family support and resume with [facility]. Clinical Notes 01-14-2022 to 09-06-2024 Chanelle Benz MD - 08/25/2024 2:00 PM Carolann Brewer MD - 08/20/2024 12:01 PM Carolann Brewer MD - 08/20/2024 11:45 AM EST Note Date & Type Note Facility 09-06-2024 Note [facility] Cardiology Clinic Note Chief Complaint: Patient here for 10 mo follow up CAD, hypertension, chronic systolic heart failure, and aortic valve stenosis. Had lipids back in November, and echo in May 2024. Says his BERG remains unchanged from last visit. Denies chest pain, palpitations, and lightheadedness/syncope. HPI: Carlo Suarez is a 88 y.o. male with a history of coronary artery disease, s/p PCI of the LAD in 2019, moderate aortic stenosis and chronic kidney disease stage III; he underwent a right heart catheterization 07/2020 Update 11/03/2023: Doing well. 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 Denies recent weight gain. No orthopnea, no paroxysmal external dyspnea. Leg swelling is stable. UPDATE 09/06/2024 Doing well; denies worsening shortness of breath, chest pain, palpitations, lightheadedness or dizziness Uses inhalers for COPD and feels about the same Cardiology ROS: Review of Systems Constitutional: Positive for weight loss (10# since Oct 2023). Cardiovascular: Positive for dyspnea on exertion and leg swelling. Musculoskeletal: Positive for muscle weakness. Neurological: Positive for weakness. All other systems reviewed and are negative. [...] use included cigarettes. He started smoking about 75 years ago. He has never used smokeless [...] mouth in the morning., Disp: , Rfl: empagliflozin (Jardiance) 10 mg, Take 10 mg by mouth in the morning., Disp: [...] Disp: , Rfl: Last Recorded Vitals BP 102/52 (BP Location: Right arm, Patient Position: Sitting) Pulse 61 Ht 1.689 m (5' 6.5 ) Wt 82.6 kg (182 lb) SpO2 96% BMI 28.94 kg/m??? Physical Examination: GENERAL: alert and oriented [...] aortic valve stenosis. Mild to moderate mitral (more content not included)... [facility] 08-25-2024 History of Present illness Narrative Images from the original note were not included. Subjective Patient ID: Carlo Suarez is a 88 y.o. male who presents for Cerumen Impaction Family History Problem Relation Name Age of Onset COPD Mother Other cancer Mother Varicose Veins Heart disease Father Diabetes Sibling Active Ambulatory Problems Diagnosis Date Noted Chronic kidney disease, stage 3b ([facility]) ([facility]) 05/05/2021 Chronic venous insufficiency of lower extremity 09/04/2020 Coronary artery disease ([facility]) 10/30/2023 PAD (peripheral artery disease) ([facility]) 06/11/2021 B12 deficiency 10/30/2023 Benign essential hypertension ([facility]) 10/30/2023 Chronic heart failure with preserved ejection fraction (HFpEF) ([facility]) 10/30/2023 COPD (chronic obstructive pulmonary disease) ([facility]) 10/30/2023 Dyslipidemia ([facility]) 10/30/2023 Nonrheumatic aortic valve stenosis 10/30/2023 Primary osteoarthritis of shoulders, bilateral 10/30/2023 Type 2 diabetes mellitus with microalbuminuria, without long-term current use of insulin ([facility]) 10/30/2023 Gastroesophageal reflux disease without esophagitis 10/30/2023 Skin candidiasis 10/30/2023 Carotid stenosis, asymptomatic, left 12/25/2023 Carotid stenosis, right 03/11/2024 Chronic kidney disease 11/03/2023 History of CEA (carotid endarterectomy) 03/11/2024 Hyperlipidemia ([facility]) 11/03/2023 Osteoarthritis 11/03/2023 Other cirrhosis of liver ([facility]) 03/15/2024 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 08/20/2024 Resolved Ambulatory Problems Diagnosis Date Noted Gastroenteritis 03/15/2024 Past Medical History: Diagnosis Date Anemia At moderate risk for fall Bilateral carotid artery stenosis CAD (coronary artery disease) ([facility]) Chronic constipation Chronic diastolic heart failure ([facility]) 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 COPD with acute exacerbation ([facility]) Coronary artery disease, occlusive ([facility]) Diabetes ([facility]) Dyspepsia Encounter for long-term (current) use of medications History of TIA (transient ischemic attack) History of tobacco abuse HTN (hypertension) ([facility]) Hx of being hospitalized 10/29/2020 Hypomagnesemia 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 Nonrheumatic aortic (valve) stenosis Orthostatic hypotension Osteoarthritis of fingers of both hands Superficial phlebitis and thrombophlebitis of left lower extremity Superficial phlebitis and thrombophlebitis of right lower extremity Varicose veins of bilateral lower extremities with pain Ventral hernia without obstruction or gangrene Vertigo Past Surgical History: Procedure Laterality Date CATARACT EXTRACTION, BILATERAL COLONOSCOPY 2016 COLONOSCOPY 06/2021 CORONARY ANGIOPLASTY WITH STENT PLACEMENT x 2 CT ANGIOGRAM ABDOMEN PELVIS 02/29/2024 CT ANGIOGRAM ABDOMEN PELVIS 02/29/2024 EGD 04/2021 with bx- Grill[facility] HERNIA REPAIR 1989 REVERSE TOTAL SHOULDER ARTHROPLASTY Left 03/10/2019 JAB VC ENDOVENOUS ABL 1ST V RT 02/21/2022 Allergies Allergen Reactions Cefdinir Diarrhea Penicillins Diarrhea, Nausea And Vomiting, GI intolerance and Unknown Shellfish Allergy Rash Current Outpatient Medications on File Prior to Visit Medication Sig Dispense Refill albuterol HFA 90 mcg/act inhaler 1 puff atorvastatin (Lipitor) 40 MG tablet 1 (one) time each day at the same time bumetanide (Bumex) 0.5 MG tablet Take 0.5 mg by mouth 1 (one) time each day at the same time. calcium carbonate (Os-Shira) 1250 (500 Ca) MG tablet Take 1 tablet by mouth in the morning and 1 tablet before bedtime. carvedilol (Coreg) 3.125 MG tablet Take 3.125 mg by mouth. clopidogrel (Plavix) 75 MG tablet Take 75 mg by mouth. clotrimazole (Lotrimin) 1 % cream Apply topically 2 (two) times a day 60 g 2 cyanocobalamin (Vitamin B-12) 1000 MCG tablet Take 1,000 mcg by mouth in the morning. empagliflozin (Jardiance) 10 MG Take 1 tablet (10 mg) by mouth Daily 30 tablet 1 ferrous sulfate 325 (65 Fe) MG tablet Take 65 mg by mouth in the morning. Take with meals. glimepiride (Amaryl) 2 MG tablet Take 2 mg by mouth. Glycopyrrolate-Formoterol 9-4.8 MCG/ACT aerosol Inhale 2 puffs in the morning and 2 puffs before bedtime. hydrOXYzine HCl (Atarax) 25 MG tablet Take 25 mg by mouth. Januvia 50 MG tablet Take 50 mg by mouth. Lancets (OneTouch Delica Plus [id number]) misc 3 times a day 100 each 3 magnesium oxide 420 MG tablet Take 1 tablet by mouth in the morning. meclizine (Antivert) 25 MG tablet 25 mg every 12 (twelve) hours. meclizine (Antivert) 25 MG tablet Take 25 mg by mouth 4 (four) times a day as needed OneTouch Verio test strip 1 each by Other route if needed pantoprazole (ProtoNix) 40 MG EC tablet Take 40 mg by mouth. tamsulosin (Flomax) 0.4 MG 24 hr capsule Take 0.4 mg by mouth in the morning. No current facility-administered medications on file prior to visit. Objective Last Recorded Vitals Vitals: 08/25/24 1342 BP: 90/57 Pulse: 80 ENT Physical Exam Ear Ear Canals: right ear canal normal; Tympanic Membranes: left tympanic membrane normal; Ear comments: Left cerumen impaction Patient ID: Carlo Suarez is a 88 y.o. male. Procedures Cerumen was removed from the left ear using binocular microscopy under micro with foreceps Assessment/Plan Diagnoses and all orders for this visit: Left ear impacted cerumen - Ambulatory referral to ENT Ear cleaned documented in this encounter [facility] 08-20-2024 History of Present illness Narrative Associated Problem(s): 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 Ears plugged and bilateral impaction on exam. Ears irrigated with water and cerumen removed with speculum. Able to clear right canal but left remains impacted. Will refer to ENT. Images from the original note were not included. Subjective Patient ID: Carlo Suarez is a 88 y.o. male who presents for Follow-up (Referral to ENT). C/o problems hearing and concerned of wax impaction. Decreased hearing off and on for few months but over past few weeks much worse. Not able to hear out of either ear and muffled. Constantly asking people to repeat self and can't hear. No drainage from ear. No congestion or rhinorrhea. History of impaction in past and seen ENT years ago. Tried OTC wax removal kit and only small amount out but still couldn't hear. No pain in ears. Review of Systems Constitutional: Negative for fatigue. Respiratory: Negative for cough, shortness of breath and wheezing. Cardiovascular: Negative for chest pain and palpitations. Gastrointestinal: Negative for abdominal pain, diarrhea, nausea and vomiting. Genitourinary: Negative for dysuria. Objective Physical Exam Constitutional: General: He is not in acute distress. Appearance: Normal appearance. HENT: Head: Normocephalic. Ears: Comments: Bilateral TM obstructed by cerumen Eyes: Extraocular Movements: Extraocular movements intact. Pupils: [...] Assessment/Plan Problem List Items Addressed This Visit 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 - Primary Ears plugged and bilateral impaction on exam. Ears irrigated with water and cerumen removed with speculum. Canals clear after procedure. Use debrox or drops of baby oil to prevent build up of wax in future. Do not use q-tips inside ear. documented in this encounter [facility] 06-17-2024 Evaluation note Authored June 17, 2024 11:16am 88-year-old man with coronar y artery disease s/p stents, CKD, diabetes referred to the liver clinic for evaluation of liver cirrhosis. Patient was told by another physician that he has liver cirrhosis. Will arrange for ultrasound of the liver. Will arrange for FibroScan. Will get laboratory workup for infectious autoimmune rheumatologic etiologies of liver diseases. Will check MELD labs [facility] Work Phone: [phone] 187-331804-11-2024 Evaluation + Plan note* Assessment & Plan Note - Brisa Enciso MD - 12/25/2023 9:24 AM EDTAssociated Problem(s): Left carotid artery stenosis L CEA versus stenting for high grade stenosis Needs cardiac clearance first [facility]04-11-2024 Miscellaneous Notes* Assessment & Plan Note - Brisa Enciso MD - 12/25/2023 9:24 AM EDTAssociated Problem(s): Left carotid artery stenosis L CEA versus stenting for high grade stenosis Needs cardiac clearance first [facility] History of Present illness Narrative* Brisa Enciso MD - 12/25/2023 9:00 AM EDT Images from the original note were not included. To: JOSE BREWER MD HPI: Carlo Suarez is a 88 y.o. male with bilateral ICA stenosis. RIGHT: 50-69% stenosis of the internal carotid artery. Antegrade vertebral artery flow. LEFT: >70% stenosis of the internal carotid artery. Antegrade vertebral artery flow. When compared to previous report significant changes were noted. . He has CAD. Review of Systems: Review of Systems Constitutional: Negative. HENT: Negative. Respiratory: Negative. Cardiovascular: Negative. Gastrointestinal: Negative. Endocrine: Negative. Genitourinary: Negative. Musculoskeletal: Negative. Skin: Negative. Neurological: Negative. Hematological: Negative. Medications: Current Outpatient Medications on File Prior to Visit Medication Sig Dispense Refill ACCU-CHEK SOFTCLIX LANCETS lancets atorvastatin (LIPITOR) 40 mg tablet Take 1 tablet (40 mg total) by mouth in the morning. bumetanide (BUMEX) 0.5 mg tablet Take 1 tablet (0.5 mg total) by mouth 2 (two) times a day before meals. Take 4 pills bid calcium carbonate (OS-SHIRA) 500 mg elemental (1,250 mg) tablet Take 1 tablet (500 mg total) by mouthin the morning. carvediloL (COREG) 6.25 mg tablet Take 1 tablet (6.25 mg total) by mouth 2 (two) times a day with meals. 60 tablet 0 cyanocobalamin 1000 MCG tablet Take 1 tablet (1,000 mcg total) by mouth daily. 30 tablet 0 empagliflozin (JARDIANCE) 10 mg tablet tablet Take 1 tablet (10 mg total) by mouth in the morning. fluticasone furoate-vilanteroL (BREO ELLIPTA) 100-25 mcg/dose blister with device Inhale 1 puff in the morning. glimepiride (AMARYL) 4 mg tablet Take 1 tablet (4 mg total) by mouth every morning before breakfast. glycopyrrolate-formoteroL (BEVESPI AEROSPHERE) 9-4.8 mcg HFA aerosol inhaler Inhale 2 puffs in the morning and 2 puffs before bedtime. ipratropium (ATROVENT) 21 mcg (0.03 %) nasal spray Administer 2 sprays into each nostril in the morning and 2 sprays before bedtime. JANUVIA 50 mg tablet Take 1 tablet (50 mg total) by mouth in the morning. lisinopriL (PRINIVIL,ZESTRIL) 40 mg tablet Take 1 tablet (40 mg total) by mouth in the morning. magnesium oxide 420 mg tablet Take 1 tablet by mouth in the morning. meclizine (ANTIVERT) 25 mg tablet Take 1 tablet (25 mg total) by mouth 4 (four) times a day as needed for dizziness. pantoprazole (PROTONIX) 40 mg EC tablet Take 1 tablet (40 mg total) by mouth every morning before breakfast. 30 tablet 0 pioglitazone (ACTOS) 15 mg tablet Take 1 tablet (15 mg total) by mouth in the morning. spironolactone (ALDACTONE) 50 mg tablet Take 1 tablet (50 mg total) by mouth in the morning. tamsulosin (FLOMAX) 0.4 mg capsule Take 1 capsule (0.4 mg total) by mouth nightly. chlorthalidone (HYGROTON) 25 mg tablet Take 1 tablet (25 mg total) by mouth daily. (Patient not taking: Reported on 12/18/2023) SUPREP BOWEL PREP KIT 17.5-3.13-1.6 gram recon soln 177 ml,actual weight, 2 times daily, Oral (Patient not taking: Reported on 12/18/2023) 177 mL 0 No current facility-administered medications on file prior to visit. Past Medical History: Past Medical History: Diagnosis Date COPD (chronic obstructive pulmonary disease) ([facility] Diabetes mellitus ([facility]) Diabetes mellitus type 2, controlled ([facility]) Heart disease Hypertension Past Surgical History: Past Surgical History: Procedure Laterality Date CORONARY ANGIOPLASTY WITH STENT PLACEMENT EGD Left Lateral 05/07/2021 Performed by Shaggy Ivy DO at [facility] HERNIA REPAIR Social and Family History: Social History Socioeconomic History Marital status: Spouse name: Not on file Number of children: Not on file Years of education: Not on file Highest education level: Not on file Occupational History Not on file Tobacco Use Smoking status: Former Current packs/day: 0.50 Average packs/day: 0.5 packs/day for 30.0 years (15.0 ttl pk-yrs) Types: Cigars, Cigarettes Smokeless tobacco: Never Substance and Sexual Activity Alcohol use: No Drug use: No Sexual activity: Defer Partners: Female Other Topics Concern Coffee Yes Tea No Carbonated Beverages Yes Chocolate Yes Social History Narrative Not on file Social Determinants of Health Financial Resource Strain: Not on file Food Insecurity: No Food Insecurity (12/25/2023) Hunger Screening Food Insecurity - Worry: Never True Food Insecurity - Inability: Never True Transportation Needs: Not on file Physical Activity: Not on file Stress: Not on file Social Connections: Not on file Interpersonal Safety: Unknown (11/06/2023) [facility] [place] [facility] Fear of Current or Ex-Partner: Not on file Emotionally Abused: Not on file Physically Abused: Not on file Sexually Abused: Not on file Physically or Sexually Abused: Not on file Housing Instability: Not on file Family History Problem Relation Age of Onset Heart disease Father Arthritis Father Emphysema Father Diabetes Brother Recent Labs: Recent and relative labs were reviewed and interpreted and contributed to the assessment and plan below. Vitals: BP 155/70 (BP Site: Right Arm, BP Postition: Sitting, BP CUFF SIZE: L (13-17 inches)) Ht 167 cm (5' 5.75 ) Wt 85.8 kg (189 lb 3.2 oz) BMI 30.77 kg/m Body mass index is 30.77 kg/m . Physical Exam: Physical Exam Constitutional: Appearance: Normal appearance. HENT: Head: Normocephalic and atraumatic. Mouth/Throat: Mouth: Mucous membranes are moist. Eyes: Extraocular Movements: Extraocular movements intact. Pupils: Pupils are equal, round, and reactive to light. Cardiovascular: Rate and Rhythm: Normal rate and regular rhythm. Pulmonary: Effort: Pulmonary effort is normal. Breath sounds: Normal breath sounds. Abdominal: General: Abdomen is flat. Bowel sounds are normal. Palpations: Abdomen is soft. Musculoskeletal: General: Normal range of motion. Cervical back: Normal range of motion. Skin: General: Skin is warm and dry. Neurological: General: No focal deficit present. Mental Status: He is alert and oriented to person, place, and time. Mental status is at baseline. Psychiatric: Mood and Affect: Mood normal. Behavior: Behavior normal. Thought Content: Thought content normal. Judgment: Judgment normal. Recent testing: Carotid duplex US Assessment and Plan: Problem List Cardiovascular and Mediastinum Left carotid artery stenosis - Primary Current Assessment & Plan L CEA versus stenting for high grade stenosis Needs cardiac clearance first Genitourinary Chronic kidney disease, stage 3b (CMS-HCC) Carlo was seen today for carotid artery disease and bilateral carotid bruits. Diagnoses and all orders for this visit: Left carotid artery stenosis Chronic kidney disease, stage 3b (CMS-HCC) Brisa Enciso MD, NANO, RPVI, FSVS, FACS [facility] This note was created with the assistance of a speech recognition program. While intending to generate a timely document that accurately reflects the content of the visit, no guarantee can be provided that every grammatical or spelling mistake has been or will be identified or corrected. Thank you for your understanding. documented [facility] encounter[facility] Note Chief Complaint: Patient here for 6 mo follow up CAD, hypertension, chronic systolic heart failure, and aortic valve stenosis. Had carotid US in May and labs in Jun 2023. He was started on Jardiance recently by his project geologist. Patient denies chest pain, palpitations, and lightheadedness/syncope. [...] started on a new inhaler by his plastic dolls mold filler. Denies recent weight gain. No orthopnea, no [...] dysfunction Dyslipidemia Peripheral veno (more content not included)...[facility]02-15-2024 History of Present illness Narrative* Jose Brewer MD - 10/30/2023 3:17 PM ESTAssociated Problem(s): PAD (peripheral artery disease) (CMS/HCC) Symptoms stable and follow up with vascular surgery. * Jose Brewer MD - 10/30/2023 3:16 PM ESTAssociated Problem(s): Skin candidiasis Developed rash and use cream PRN. * Jose Brewer MD - 10/30/2023 3:16 PM ESTAssociated Problem(s): Type 2 diabetes mellitus with microalbuminuria, without long-term current use of insulin (CMS/HCC) Reports BS elevated and follow up with endocrinology. Stick to ADA diet and limit carbs. * Jose Brewer MD - 10/30/2023 3:16 PM ESTAssociated Problem(s): Primary osteoarthritis of shoulders, bilateral Mild pain but tolerable and use OTC PRN. * Jose Brewer MD - 10/30/2023 3:15 PM ESTAssociated Problem(s): Gastroesophageal reflux disease without esophagitis Symptoms controlled with protonix and continue. * Jose Brewer MD - 10/30/2023 3:15 PM ESTAssociated Problem(s): Chronic heart failure with preserved ejection fraction (HFpEF) (CMS/HCC) Edema stable and continue medication. Wear compression stockings daily. Elevated legs PRN. * Jose Brewer MD - 10/30/2023 3:15 PM ESTAssociated Problem(s): Benign essential hypertension (CMS/HCC) BP controlled and monitor PRN. * Jose Brewer MD - 10/30/2023 2:15 PM EST Subjective Patient ID: Carlo Suarez is a 87 y.o. male who presents for Follow-up. F/u DM, HTN, CHF, OA shoulder, and GERD. Patient doing well today. Following with endocrinology delmar A1C elevated. Checking BS and doesn't remember [...] Items Addressed This Visit Benign essential hypertension ([facility]) BP controlled and monitor PRN. Chronic heart failure with preserved ejection fraction (HFpEF) ([facility]) Edema stable and continue medication. Wear compression stockings daily. Elevated legs PRN. Primary osteoarthritis of shoulders, bilateral Mild pain but tolerable and use OTC PRN. Type 2 diabetes mellitus with microalbuminuria, without long-term current use of insulin ([facility]) - Primary Reports BS elevated and follow up with endocrinology. Stick to ADA diet and limit carbs. Gastroesophageal reflux disease without esophagitis Symptoms controlled with protonix and continue. Skin candidiasis Developed rash and use cream PRN. Relevant Medications clotrimazole (Lotrimin) 1 % cream documented in this encounterMineral [facility] [id number] Evaluation note* Encounter Date Diagnosis Assessment Notes Treatment Notes Treatment Clinical Notes Jul, Benign prostatic hyperplasia with lower urinary tract symptoms (ICD-10 - N40.1) [employer] Other 10-26-2023 Evaluation note* Encounter Date Diagnosis [...] an d reflux uropathy (ICD-10 - N13.8) [employer] Other 06-23-2023 Evaluation note* Encounter Date Diagnosis Assessment Notes [...] an d reflux uropathy (ICD-10 - N13.8) [employer] Other 01-11-2023 Evaluation note* Encounter Date Diagnosis [...] IV Iron Sep, Hypomagnesemia (ICD-10 - E83.42) [employer] Other 07-19-2022 Evaluation note* Encounter Date Diagnosis [...] will schedule II more doses of Injectafer [employer] Other 05-10-2022 Evaluation note* Encounter Date Diagnosis [...] daily January, Iron deficiency (ICD-10 - E61.1) [employer] Other [id number] Evaluation note* Encounter Date Diagnosis Assessment Notes Treatment Notes Treatment Clinical Notes January, Stage 3b chronic kidney disease (CKD) (ICD-10 - N18.32) January, Localized edema (ICD-10 - R60.0) January, Primary hypertension (ICD-10 - I10) [employer] Other Evaluation noteNo InformationNortBryn [facility]aw[facility] [employer] Other Evaluation noteNo assessment information available [facility] Work Phone: evaluation note* Diagnosis Type 2 diabetes mellitus with microalbuminuria, without long-term current use of insulin ([facility])- Primary Chronic heart failure with preserved ejection fraction (HFpEF) ([facility]) Benign essential hypertension ([facility]) Essential hypertension, benign Primary osteoarthritis of shoulders, bilateral Gastroesophageal reflux disease without esophagitis Esophageal reflux Skin candidiasis Candidiasis of skin and nails PAD (peripheral artery disease) ([facility]) Unspecified peripheral vascular disease documented in this encounter [facility]* Diagnosis Onset Date Resolution Status Anemia acute Benign prostatic hyperplasia with lower urinary tract symptoms acute Diabetic nephropathy acute Fluid overload acute Hyperparathyroidism acute Hyperuricemia acute Hypocalcemia acute Hypomagnesemia acute Primary hypertension acute Stage 3b chronic kidney disease (CKD) acute Status post carotid surgery noneactive [facility] Work Phone: Evaluation note* Author Andry Morales [facility] Authored June 17, 2024 11 :16am 88-year-old man with coronar y artery disease s/p stents, CKD, diabetes referred to the liver clinic for evaluation of liver cirrhosis. Patient was told by another physician that he has liver cirrhosis. Will arrange for ultrasound of the liver. Will arrange for FibroScan. Will get laboratory workup for infectious autoimmune rheumatologic etiologies of liver diseases. Will check MELD labs [facility] Work Phone: Evaluation note* Diagnosis Type 2 diabetes mellitus with microalbuminuria, without long-term current use of insulin (CMS/HCC)- Primary Chronic heart failure with preserved ejection fraction (HFpEF) (CMS/HCC) Benign essential hypertension (CMS/HCC) Essential hypertension, benign Primary osteoarthritis of shoulders, bilateral Gastroesophageal reflux disease without esophagitis Esophageal reflux Skin candidiasis Candidiasis of skin and nails PAD (peripheral artery disease) (CMS/HCC) Unspecified peripheral vascular disease Gastroenteritis- Primary Other and unspecified noninfectious gastroenteritis and colitis Other cirrhosis of liver (CMS/HCC) Type 2 diabetes mellitus with microalbuminuria, without long-term current use of insulin (CMS/HCC)- Primary Benign essential hypertension (CMS/HCC) Essential hypertension, benign Chronic obstructive pulmonary disease, unspecified COPD type (CMS/HCC) Chronic heart failure with preserved ejection fraction (HFpEF) (CMS/HCC) Primary osteoarthritis of shoulders, bilateral Gastroesophageal reflux disease without esophagitis Esophageal reflux Other cirrhosis of liver (CMS/HCC) Type 2 diabetes mellitus with diabetic chronic kidney disease (CMS/HCC) Chronic kidney disease, stage 3a (HCC) (CMS/HCC) Hyperparathyroidism, unspecified (CMS/HCC) Hyperparathyroidism, unspecified Type 2 diabetes mellitus with hyperglycemia, with long-term current use of insulin (CMS/HCC)- Primary documented in this encounter [facility]* Diagnosis Type 2 diabetes mellitus with microalbuminuria, without long-term current use of insulin (CMS/HCC)- Primary Chronic heart failure with preserved ejection fraction (HFpEF) (CMS/HCC) Benign essential hypertension (CMS/HCC) Essential hypertension, benign Primary osteoarthritis of shoulders, bilateral Gastroesophageal reflux disease without esophagitis Esophageal reflux Skin candidiasis Candidiasis of skin and nails PAD (peripheral artery disease) (CMS/HCC) Unspecified peripheral vascular disease Gastroenteritis- Primary Other and unspecified noninfectious gastroenteritis and colitis Other cirrhosis of liver (CMS/HCC) Type 2 diabetes mellitus with microalbuminuria, without long-term current use of insulin (CMS/HCC)- Primary Benign essential hypertension (CMS/HCC) Essential hypertension, benign Chronic obstructive pulmonary disease, unspecified COPD type (CMS/HCC) Chronic heart failure with preserved ejection fraction (HFpEF) (CMS/HCC) Primary osteoarthritis of shoulders, bilateral Gastroesophageal reflux disease without esophagitis Esophageal reflux Other cirrhosis of liver (CMS/HCC) Type 2 diabetes mellitus with diabetic chronic kidney disease (CMS/HCC) Chronic kidney disease, stage 3a (HCC) (CMS/HCC) Hyperparathyroidism, unspecified (CMS/HCC) Hyperparathyroidism, unspecified 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- Primary Type 2 diabetes mellitus with diabetic chronic kidney disease (CMS/HCC) Chronic kidney disease, stage 3b (HCC) (CMS/HCC) documented in this encounter [facility] HealthcareEvaluation note* Diagnosis Type 2 diabetes mellitus with microalbuminuria, without long-term current use of insulin (CMS/HCC)- Primary Chronic heart failure with preserved ejection fraction (HFpEF) ([facility]/HCC) Benign essential hypertension ([facility]/HCC) Essential hypertension, benign Primary osteoarthritis of shoulders, bilateral Gastroesophageal reflux disease without esophagitis Esophageal reflux Skin candidiasis Candidiasis of skin and nails PAD (peripheral artery disease) (CMS/HCC) Unspecified peripheral vascular disease Gastroenteritis- Primary Other and unspecified noninfectious gastroenteritis and colitis Other cirrhosis of liver ([facility]/HCC) Type 2 diabetes mellitus with microalbuminuria, without long-term current use of insulin (CMS/HCC)- Primary Benign essential hypertension (CMS/HCC) Essential hypertension, benign Chronic obstructive pulmonary disease, unspecified COPD type ([facility]/HCC) Chronic heart failure with preserved ejection fraction (HFpEF) ([facility]/HCC) Primary osteoarthritis of shoulders, bilateral Gastroesophageal reflux disease without esophagitis Esophageal reflux Other cirrhosis of liver (CMS/HCC) Type 2 diabetes mellitus with diabetic chronic kidney disease (CMS/HCC) Chronic kidney disease, stage 3a (HCC) (CMS/HCC) Hyperparathyroidism, unspecified (CMS/HCC) Hyperparathyroidism, unspecified 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- Primary Type 2 diabetes mellitus with diabetic chronic kidney disease (CMS/HCC) Chronic kidney disease, stage 3b (HCC) ([facility]/HCC) Left ear impacted cerumen Impacted cerumen documented in this encounter [facility] HealthcareEvaluation note* Diagnosis Type 2 diabetes mellitus with microalbuminuria, without long-term current use of insulin ([facility]/HCC)- Primary Chronic heart failure with preserved ejection fraction (HFpEF) (CMS/HCC) Benign essential hypertension ([facility]/HCC) Essential hypertension, benign Primary osteoarthritis of shoulders, bilateral Gastroesophageal reflux disease without esophagitis Esophageal reflux Skin candidiasis Candidiasis of skin and nails PAD (peripheral artery disease) (CMS/HCC) Unspecified peripheral vascular disease Gastroenteritis- Primary Other and unspecified noninfectious gastroenteritis and colitis Other cirrhosis of liver ([facility]/HCC) Type 2 diabetes mellitus with microalbuminuria, without long-term current use of insulin (CMS/HCC)- Primary Benign essential hypertension (CMS/HCC) Essential hypertension, benign Chronic obstructive pulmonary disease, unspecified COPD type (CMS/HCC) Chronic heart failure with preserved ejection fraction (HFpEF) (CMS/HCC) Primary osteoarthritis of shoulders, bilateral Gastroesophageal reflux disease without esophagitis Esophageal reflux Other cirrhosis of liver (CMS/HCC) Type 2 diabetes mellitus with diabetic chronic kidney disease (CMS/HCC) Chronic kidney disease, stage 3a (HCC) (CMS/HCC) Hyperparathyroidism, unspecified (CMS/HCC) Hyperparathyroidism, unspecified 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- Primary Type 2 diabetes mellitus with diabetic chronic kidney disease (CMS/HCC) Chronic kidney disease, stage 3b (HCC) (CMS/HCC) Type 2 diabetes mellitus with microalbuminuria, without long-term current use of insulin (CMS/HCC) Type 2 diabetes mellitus with hyperglycemia, without long-term current use of insulin (CMS/HCC) documented in this encounter [facility] HealthcareEvaluation note* Diagnosis Left carotid artery stenosis- Primary Chronic kidney disease, stage 3b ([facility]) [facility] - Reported* Type Description Date [...] C ATHETERIZATION 01/18/2019 Hospitalization History SEE ABOVE [employer] Other History general Narrative - Reported* Type [...] CATARACT REMOVED 02/2023 Hospitalization History SEE ABOVE [employer] Other InstructionsNot on filedocumented in this encounter [facility] [place]Not on filedocumented in this [facility] filed[facility]ed [facility] this encounter [facility] [place] [facility] Summary Purpose Family History Relationship Condition Age at Onset Recorded Date/T kiki brother Unknown Diabetes mellitus Unknown father Unknown mother Unknown Advance Directives Advance Directive Response Recorded Date/ Time Advance Directives No April 17, 2 022 11:18am Latest Code Status on File Code Status Date Activated Date Inactivated Comments Full Code 05/05/2021 6:35 PM 05/08/2021 6:04 PM Date Activated Date Inactivated Comments 05/05/2021 6:35 PM 05/08/2021 6:04 PM Chief Complaint and Reason for Visit Chief Complaint D64.9 N18.32 Chief Complaint RENAL 4 MONTH F/U Reason for Visit Anemia 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60 Reason for Visit Anemia 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 Fluid overload Hyperparathyroidism Hyperuricemia Hypocalcemia Hypomagnesemia Primary hypertension Stage 3b chronic kidney disease (CKD) Status post carotid surgery Cirrhosis of liver Chief Complaint RENAL 4 MONTH F/U Refer: cirrhosis of liver K74.60 D64.9 E11.21 K74.60 cirrhosis of liver Reason for Visit Anemia 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 Fluid overload Hyperparathyroidism Hyperuricemia Hypocalcemia Hypomagnesemia Primary hypertension Stage 3b chronic kidney disease (CKD) Status post carotid surgery Cirrhosis of liver Chief Complaint RENAL 4 MONTH F/U Refer: cirrhosis of liver K74.60 D64.9 E11.21 K74.60 cirrhosis of liver k74.60 d649 Reason for Visit Anemia 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 Fluid overload Hyperparathyroidism Hyperuricemia Hypocalcemia Hypomagnesemia Primary hypertension Stage 3b chronic kidney disease (CKD) Status post carotid surgery Cirrhosis of liver Additional Source Comments (unrecognized sect ion and content) No Status Records FoundNo Status Records FoundNo Status Records FoundNo Status Records FoundNo Status Records FoundNo Status Records FoundNo Status Records FoundNo Status Records FoundNo Status Records Found INFORMATION SOURCE (unrecogn ized section and content) DATE CREATED AUTHOR 05/22/2020 [facility] DATE CREATED AUTHOR AUTHOR'S ORGANIZ ATION 09/07/2020 [facility] DATE CREATED AUTHOR AUTHOR'S ORGANIZ ATION 02/21/2023 [facility] DATE CREATED AUTHOR AUTHOR'S ORGANIZ ATION 02/12/2024 [facility] DATE CREATED AUTHOR AUTHOR'S ORGANIZ ATION 03/11/2024 [facility] DATE CREATED AUTHOR AUTHOR'S ORGANIZ ATION 03/13/2024 [facility] DATE CREATED AUTHOR AUTHOR'S ORGANIZ ATION 08/28/2024 [facility] DATE CREATED AUTHOR AUTHOR'S ORGANIZ ATION 09/08/2024 [facility] DATE CREATED AUTHOR AUTHOR'S ORGANIZ ATION 09/14/2024 [facility] REASON FOR VISIT (unrecogniz ed section and content) Reason Comments Carotid Artery Disease Bilateral Carotid Bruits Reason Onset Date Comments Med Refill 09/13/2024 Reason Comments Cerumen Impaction Specialty Diagnoses / Procedures Referred By Contperlita t Referred To Contact Otolaryngology Diagnoses 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 Procedures [place] [facility]ICE[facility]PATIENT [facility] Jose Brewer MD [address] [place] [address] Phone: tel: fax: Chanelle Benz MD [address] [facility] [address] [place] [address] Phone: tel: fax: Referral ID Status Reason Start Date Expiration Date V isits Requested Visits Authorized [id number] Closed Specialty Services Required 08/20/2024 02/16/2025 1 1 Reason Comments Follow-up Referral to ENT Reason Comments Med Refill Reason Comments Follow-up REFILLRENAL 4 month Follow upRENAL 6 month Follow upRENAL 2 month Follow upRENAL 3 month Follow upClinical Care Teams (unrecognized sec tion and content) Team Status: Active Member Role Status Dates Jose Brewer MD Primary Care Provider Active Team Status: Active Member Role Status Dates Kaur Robins MD Primary Care Provide r, Attending Provider Active Start: April 26, 2024 Team Status: Inactive Member Role Status Dates Kaur Robins MD Primary Care Provide r, Attending Provider Active Start: May 04, 2024 End: May 04, 2024 Team Status: Inactive Member Role Status Dates Kaur Robins MD Primary Care Provider Active S tart: June 17, 2024 End: June 17, 2024 Andry Morales MD Attending Provider Active Start: June 17, 2024 End: June 17, 2024 Shaikh Chanelle MD Referring Provider Active Sta rt: June 17, 2024 End: June 17, 2024 Team Status: Inactive Member Role Status Dates Jose Brewer MD Primary Care Provider Active S tart: June 17, 2024 End: June 17, 2024 Andry Morales MD Attending Provider Active Start: June 17, 2024 End: June 17, 2024 Team Status: Active Member Role Status Dates Kaur Robins MD Primary Care Provider Active Team Status: Inactive Member Role Status Dates Kaur Robins MD Primary Care Provider, Attending Pro vider Active Environmental Specialist Relationship Specialty Start Date End Date Jose Brewer MD [address] [place] [address] PCP - General Family Medicine 10/06/23 Environmental Specialist Relationship Specialty Start Date End Date Jose Brewer MD [address] [place] [address] PCP - General Family Medicine 10/06/23 Environmental Specialist Relationship Specialty Start Date End Date Jose Brewer MD [address] [place], [place] [id number] PCP - General 10/08/17 Team Status: Inactive Member Role Status Dates Andry Morales MD Attending Provider Active Start: June 24, 2024 End: June 24, 2024 Jose Brewer MD Primary Care Provider Active S tart: June 24, 2024 End: June 24, 2024 Team Status: Inactive Member Role Status Dates Jose Brewer MD Primary Care Provider Active S tart: July 02, 2024 End: July 02, 2024 Andry Morales MD Attending Provider Active Start: July 02, 2024 End: July 02, 2024 Environmental Specialist Relationship Specialty Start Date End Date Jose Brewer MD [address] [place] [id number] PCP - General Family Medicine 10/06/23 Environmental Specialist Relationship Specialty Start Date End Date Jose Brewer MD PCP - General 03/09/24 Environmental Specialist Relationship Specialty Start Date End Date Jose Brewer MD [address] [place] [phone] PCP - General Family Medicine 10/06/23 Environmental Specialist Relationship Specialty Start Date End Date Jose Brewer MD [address] [place] [phone] PCP - General Family Medicine 10/06/23 Environmental Specialist Relationship Specialty Start Date End Date Jose Brewer MD [address] [place] [phone] PCP - General Family Medicine 10/06/23 Environmental Specialist Relationship Specialty Start Date End Date Jose Brewer MD [address] [place] [phone] PCP - General Family Medicine 10/06/23 Environmental Specialist Relationship Specialty Start Date End Date Jose Brewer MD [address] [place] [address] PCP - [facility] Family Medicine 10/06/23 Environmental Specialist Relationship Specialty Start Date End Date Jose Brewer MD [address] [facility] [place] [place] [id number] PCP - General 10/08/17 Goals (unrecognized section [...] BE BASED ON THE PRIMARY CLINICAL RECORDS. [facility] [employer] [facility]. provides no warranty or guarantee of the accuracy or completeness of information in this document.
[2024-10-11 13:02] LABS: Bilirubin Urine NEGATIVE (NEGATIVE); Blood Urine NEGATIVE (NEGATIVE); Clarity Urine CLEAR (CLEAR); Color Urine LT. YELLOW (YELLOW); Glucose Urine UA 500 mg/dL (NEGATIVE); Ketones Urine NEGATIVE (NEGATIVE); Leukocyte Esterase Urine NEGATIVE (NEGATIVE); Nitrite Urine NEGATIVE (NEGATIVE); Protein Urine NEGATIVE (NEG/TRACE); Specific Gravity Urine 1.015 (1.005-1.025); Urobilinogen Urine 0.2 EU/dL (0.2-1.0); pH Urine 5.5 (5.0-9.0)
[2024-10-11 13:03] LABS: Hematocrit 41.3 % (42.0-54.0); Hemoglobin 13.8 g/dL (14.0-18.0); Mean Corpuscular HGB Conc 33.4 g/dL (29.9-35.2); Mean Corpuscular Volume 101.7 fL (80.0-94.0); Mean Platelet Volume 10.8 fL (9.5-13.5); Platelet Count 167 10^3/uL (150-450); Red Blood Count 4.06 10^6/uL (4.70-6.10)
[2024-10-11 13:17] LABS: Creatinine Urine Random <13.00 mg/dL (20.00-300.00); Total Protein Urine Random 8.6 mg/dL (<=11.9)
[2024-10-11 13:31] LABS: Albumin Level 3.2 g/dL (3.4-5.0); Anion Gap 12.9; Calcium 9.4 mg/dL (8.5-10.1); Carbon Dioxide 28.1 mmol/L (21.0-32.0); Chloride 101 mmol/L (98-107); Estimated GFR (African America 45 (>=60 mL/min/1.73m^2); Estimated GFR (Non-African Ame 37 (>=60 mL/min/1.73m^2); Glucose 159 mg/dL (74-106); Magnesium 2.2 mg/dL (1.8-2.4); Percent Iron Saturation 41.6 %; Phosphorus 4.1 mg/dL (2.6-4.7); Sodium 138 mmol/L (136-145); Uric Acid 8.5 mg/dL (3.5-7.2)
[2024-10-12 07:09] LABS: Vitamin B12 1909 pg/mL (232-1245)
[2024-10-12 11:11] LABS: PTH, Intact 58 pg/mL (15-65)
== END 2024-10-11 12:22 | disposition home or self-care (01) ==
LOC: LAB 12:23
PROVIDERS: PCP Family Medicine; Visit Provider Internal Medicine Nephrology
DX: E21.3 Hyperparathyroidism, unspecified (principal); E11.21 Type 2 diabetes mellitus with diabetic nephropathy; E79.0 Hyperuricemia without signs of inflammatory arthritis and tophaceous disease; N40.1 Benign prostatic hyperplasia with lower urinary tract symptoms; N18.32 Chronic kidney disease, stage 3b; I12.9 Hypertensive chronic kidney disease with stage 1 through stage 4 chronic kidney disease, or unspecified chronic kidney disease
CPT/HCPCS: 36415; 80069; 81003; 82306; 82570; 82607; 82728; 82746; 83540; 83550; 83735; 83970; 84156; 84550; 85027

== ENCOUNTER 2025-05-30 12:25 | Outpatient (OUT) | payer MEDICARE, SELFPAY ==
--- OUTSIDE RECORDS SUMMARY | 2024-10-26 05:30 | XMS_ITS ---
Author Organization [facility] in [place] Address [address] [place] [address] Care Team Providers Care Mail Processing Machine Operator Name Role Phone Jose Jewell MD Primary Care Provider Unavailab liliam RosySamiraKeith Unavailable [phone] Allergies Allergen (clinical drug ingredient) Drug/Non Drug Allergy documented on EMR Reaction Allergy Type Onset Date Status Penicillin diarrhea Drug Allergy Active REASON FOR VISIT 2 mos F/U SOB Medications Medication SIG (Take, Route, Frequency, Duration) Notes Start Date End Date Status Bevespi Aerosphere 9-4.8 MCG/ACT 2 puffs Inhalation Twice a day; Duration: 90 days 04/21/2023 Active Plavix 75 MG 1 tablet Orally Once a day Active N00-Csuofi 1 MG as directed Orally Active Atorvastatin Calcium 40 MG 1 tablet Oral ly Once a day Active Albuterol Sulfate HFA 108 (90 Base) MCG/ACT 2 puffs as needed for SOB Inhalation Q4H; Duration: 30 days 03/24/2024 Active Ipratropium-Albuterol 0.5-2.5 (3) MG/3ML 3mL Inhalation q4H; Duration: 30 days 08/25/2024 Active Pantoprazole Sodium 40 MG 1 tablet Orall y Once a day Active Januvia 50 MG as directed Orally Active metFORMIN HCl 850 MG 1 tablet with a adriana l Orally Once a day Active Meclizine HCl 25 MG 1 tablet as needed O rally every 12 hrs Active Ferrous Sulfate 325 (65 Fe) MG 1 tablet Orally Three times a Week Active Coreg 3.125 MG 1 tablet with food O rally Twice a day Active hydrOXYzine HCl 25 MG 1 tablet at bedtim e as needed Orally Once a day Active Calcium 500 MG 1 tablet with meals Orally Twice a day Active Bumetanide 0.5 MG 1 tablet Orally Once a day Active Social History Tobacco Use: Social History Observation Description Date Details (start date - stop date) Former Smoker NA - NA Tobacco use other than smoking: Question Answer Notes Are you an other tobacco user? No Tobacco Control (Standard) Question Answer Notes Tobacco use: Former smoker How long has it been since you last smoked? Grea ter than 10 years Additional Findings: Tobacco non-user Ex-cigar s moker Encounters Encounter Location Date Provider Diagnosis [facility] [address] [place] [address] 10/26/2024 Keith Gallegos Plan Of Treatment No Information Procedure Notes * Category Sub-Category Detail Notes PFT Data: 09/20/2020-FEV1/FV C: 62%-FEV1: 69%-FVC: 77%%-Bronchodilator response: None-RV: 127%-T%-DLCO: 57%-Flow-volume loop: Moderate obstruction Progress Notes * Todd HENDERSON DDOB: [birth year] (89 yo M)Acc No.[id number]:10/26/2024 UNLOCKED PROGRESS NOTE Follow Up Patient: Todd DING Provider: Mary Gallegos DO :1935 A ge:88 Y S ex:Male Date:10/26/2024 Address:[address] [place], [place] [id number] Pcp:Jose Jewell MD Subjective: * Chief Complaints: * 1 . 2 mos F/U SOB. * Medical History: C OPD (chronic obstructive pulmonary disease), History of tobacco abuse, CAD (coronary artery disease), Nonallergic rhinitis, B12 deficiency, Essential hypertension, Bilateral carotid artery stenosis, Chronic diastolic congestive heart failure, Dyslipidemia, Iron deficiency anemia due to chronic blood loss, Aortic stenosis, DM2 (diabetes mellitus, type 2), Ventral hernia, Osteoarthritis, History of TIA (transient ischemic attack), History of tobacco abuse. * Surgical History: H ernia Repair , coronary artery bypass graft , vein ligation , cataract removal , carotid endarterectomy , shoulder replacement . * Hospitalization/Major Diagno stic Procedure: D enies Past Hospitalization. * Family History: F ather: COPD. M other: varicose veins. * Social History: T obacco Use: T obacco Control (Standard) T obacco use: F ormer smoker H ow long has it been since you last smoked??Greater than 10 years A dditional Findings: Tobacco non-user E x-cigar smoker Electronic Cigarette use C urrent user N o LM: Additional Tobacco Questions N umber of Years Pt Smoked: 3 0 4 Cigars per day Tobacco use other than smoking A re you an other tobacco user? N o When did you stop smokin06/15/2012. 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 D rugs/Alcohol: D rugs H ave you used drugs other than those for medical reasons in the past 12 months? N o D oes the Patient have a History of Drug Abuse in the Past? N o Caffeine I ntake: 1 -2 cups per day Do you drink alcohol?: Yes, Socially. Do you smoke marijuana?: Denies. * Medications: T aking Albuterol Sulfate HFA 108 (90 Base) MCG/ACT Aerosol Solution 2 puffs as needed for SOB Inhalation Q4H , Taking Atorvastatin Calcium 40 MG Tablet 1 tablet Orally Once a day , Taking D21-Quajnj(Methylcobalamin) 1 MG Tablet Chewable as directed Orally , Taking Bevespi Aerosphere(Glycopyrrolate-Formoterol) 9-4.8 MCG/ACT Aerosol 2 puffs Inhalation Twice a day , Taking Bumetanide 0.5 MG Tablet 1 tablet Orally Once a day , Taking Calcium 500 MG Tablet 1 tablet with meals Orally Twice a day , Taking Coreg(Carvedilol) 3.125 MG Tablet 1 tablet with food Orally Twice a day , Taking Ferrous Sulfate 325 (65 Fe) MG Tablet 1 tablet Orally Three times a Week , Taking hydrOXYzine HCl 25 MG Tablet 1 tablet at bedtime as needed Orally Once a day , Taking Ipratropium-Albuterol 0.5-2.5 (3) MG/3ML Solution 3mL Inhalation q4H , Taking Januvia(SITagliptin Phosphate) 50 MG Tablet as directed Orally , Taking Meclizine HCl 25 MG Tablet 1 tablet as needed Orally every 12 hrs , Taking metFORMIN HCl 850 MG Tablet 1 tablet with a meal Orally Once a day , Taking Pantoprazole Sodium 40 MG Tablet Delayed Release 1 tablet Orally Once a day , Taking Plavix(Clopidogrel Bisulfate) 75 MG Tablet 1 tablet Orally Once a day * Allergies: P enicillin: diarrhea - Allergy. Objective: * Vitals: Assessment: Plan: * Treatment: * Procedures: P FT: Data: 09/20/2020 -FEV1/FVC: 62% -FEV1: 69% -FVC: 77%% -Bronchodilator response: None -RV: 127% -T% -DLCO: 57% -Flow-volume loop: Moderate obstruction. * Preventive Medicine: COVID Vaccination: H as patient had COVID Vaccination? COVID Vaccination Y es 01/09/2024 Immunization Status: P neumovacc P [id number]- 06/01/2024. I nfluenza 0 06/01/2024. Z ostivax 0 03/13/2022. B oostrix 0 11/20/2018. Screenings/Counseling: F ALL RISK SCREENING Fall Risk Assessment: O ne fall with injury in the past year Are you afraid of falling? Y es T OBACCO ACTION PLAN Patient counselled on the dangers of tobacco use and urged to quit. 1 10/26/2023 Former Education on smoking effects provided?08/25/2024 Former B [place] ACTION PLAN Above Normal BMI Follow-up D ietary management education, guidance, and counseling R SV-01/09/2024. * * Electronic signature of Marielena Gallegos DO on 05/30/2025 at 12:34 PM EDT Sign off status: Pending Visit Status: N /S N/C (No Show/No Charge) * Provider: Mary Gallegos DO Date: 0 10/26/2024 Generated for Cristina beckett/Javier/Lanceitting on: 0 05/30/2025 12:34 PM EDT
--- OUTSIDE RECORDS SUMMARY | 2025-03-22 10:30 | XMS_ITS ---
Author Organization [facility] Address [address] [place] [address] Care Team Providers Care Door Repairer Bus Name Role Phone Jose Jewell MD Primary Care Provider Unavailab Keith Muir Unavailable [phone] REASON FOR VISIT 1 YEAR F/U COPD Encounters Encounter Location Date Provider Diagnosis Pulmonary Medicine [address] [address] 03/22/2025 Keith Gallegos Plan Of Treatment No Information Progress Notes * Todd HENDERSON DDOB: [birth year] (89 yo M)Acc No.[id number]:03/22/2025 UNLOCKED PROGRESS NOTE Follow Up Patient: Mary HERNANDEZ Todd Mendoza Provider: Mary Gallegos DO :1935 A ge:89 Y S ex:Male Date:03/22/2025 [facility] Pcp:Jose Jewell MD Subjective: * Chief Complaints: * 1 . 1 YEAR F/U COPD. * Medical History: Objective: * Vitals: Assessment: Plan: * Treatment: * * Electronic signature of Marielena Gallegos DO on 05/30/2025 at 12:33 PM EDT Sign off status: Pending Visit Status: R /S By O/P (Rescheduled by Office/Provider) * Provider: Mary Gallegos DO Date: 0 03/22/2025 Generated for Cristina beckett/Javier/Vonsmitting on: 0 05/30/2025 12:33 PM EDT
--- OUTSIDE RECORDS SUMMARY | 2025-05-30 12:34 | XMS_ITS | Encounter Summary ---
Author Organization [facility] Address [address] [place] [address] Care Team Providers Care Supervisor Accounting Clerks Name Role Phone Jose Jewell MD Primary Care Provider [phone] Encounter Details Date Type Department Care Team (Late Contact Info) Description 01/20/2024 Orders Only [facility] [address] [place] [address] Jose Jewell MD [address] [place] [address] Social History Tobacco Use Types Packs/Day Years Used Date Smoking Tobacco: Former Pipe Cigars Passive Smoke Exposure: Past Smokeless Tobacco: Never Comments:4 cigars a day x 30 plus years Alcohol Use Standard Drinks/Week Comments Yes 0 (1 standard drink = 0.6 oz pure alcohol) caffeine intake: 3-4 cups per day; coffee daily, pop sometimes AUDIT-C Answer Date Recorded Q1: How often do you have a drink containing alc ohol? Monthly or less 10/30/2023 Q2: How many drinks containi ng alcohol do you have on a typical day when you are drinking? 1 or 2 10/30/2023 Q3: How often do you have si x or more drinks on one occasion? Never 10/30/2023 PHQ-2 Answer Date Recorded Patient Health Questionnaire-2 Score 0 10/30/2023 Sex and Gender Information Value Date Recorded Sex Assigned at Not on file Legal Sex Male 9:28 PM EDT Gender Identity Not on file Sexual Orientation Not on file documented as of this encounter Plan of Treatment Upcoming Encounters Date Type Department Care Team (Late Contact Info) Description 06/13/2025 1:00 PM EDT Office Visit [facility] [place] [facility] [address] [place] [address] Delia Bustos MD [address] [place] [address] documented as of this encounter Procedures Procedure Name Priority Date/Time Associated Diagnosis Comments MISCELLANEOUS LAB TEST Routine 01/19/2024 8:19 AM EDT documented in this encounter Results * - Miscellaneous Test (01/19/2024 8:19 AM EDT) Jose Jewell MD LAB BLOOD ORDERABLES Final Resul t documented in this encounter Visit Diagnoses Not on filedocumented in this encounter Care Teams Supervisor Accounting Clerks Relationship Specialty Start Date End Date Jose Jewell MD PCP - General Family Medicine 10/06/23 documented as of this encounter
--- OUTSIDE RECORDS SUMMARY | 2025-05-30 12:34 | XMS_ITS | Encounter Summary ---
Author Organization [facility] Address [address] [place] [address] Care Team Providers Care Master Sonar Technician Name Role Phone Jose Jewell MD Primary Care Provider Encounter Details Date Type Department Care Team (Late Contact Info) Description 01/16/2024 Orders Only [facility] [address] [place] [address] Jose Jewell MD [address] [facility] [address] Social History Tobacco Use Types Packs/Day Years [...] Encounters Date Type Department Care Team (Late st Contact Info) Description 06/13/2025 1:00 PM EDT Office Visit [facility] [place] [facility] [address] [place] [address] Delia Bustos MD [address] [place] [address] documented as of this encounter Procedures Procedure Name Priority Date/Time Associated Diagnosis Comments SCANNED LABS Routine 01/16/2024 9:01 AM EDT documented in this encounter Results * SCANNED LABS (01/16/2024 9:01 AM EDT) Jose Jewell MD LAB CHG PERFORMABLES Final Resul t documented in this encounter Visit Diagnoses Not on filedocumented in this encounter Care Teams Master Sonar Technician Relationship Specialty Start Date End Date Jose Jewell MD PCP - General Family Medicine 10/06/23 documented as of this encounter
--- OUTSIDE RECORDS SUMMARY | 2025-05-30 12:34 | XMS_ITS | Clinical Summary ---
Author Organization [facility] Address [address] [place] [address] Care Team Providers Care Home Care Assistant Name Role Phone Jose Jewell MD Primary Care Provider [phone] Allergies Active Allergy Reactions Criticality Noted Date Comments Penicillins Nausea And Vomiting,Unknown Low 021 Medications bumetanide (Bumex) 0.5 mg tablet Take 2 mg by mouth in the morning and at bedtime. 2 Active atorvastatin (Lipitor) 40 mg tablet atorvastatin 40 mg tablet 7 Active glimepiride (Amaryl) 2 mg tablet 3 Active carvedilol (Coreg) 3.125 mg tablet every 12 (twelve) hours. Active cyanocobalamin (Vitamin B-12) 1,000 mcg tablet Take 1,000 mcg by mouth in the morning. 1 Active pantoprazole (ProtoNix) 40 mg EC tablet pantoprazole 40 mg tablet,delayed release 1 Active SITagliptin phosphate (Januvia) 50 mg tablet Januvia 50 mg tablet Active clopidogrel (Plavix) 75 mg tablet clopidogrel 75 mg tablet TAKE ONE TABLET BY MOUTH DAILY Active meclizine (Antivert) 25 mg tablet meclizine 25 mg tablet Active ferrous sulfate 325 (65 Fe) MG tablet Take 65 mg by mouth with breakfast. Active magnesium oxide (Mag-Ox) 400 mg tablet 420 mg in the morning. Active tamsulosin (Flomax) 0.4 mg 24 hr capsule Take 0.4 mg by mouth in the morning. Active glycopyrrolate- formoteroL (Bevespi Aerosphere) 9-4.8 mcg HFA aerosol inhaler Inhale 2 puffs in the morning and at bedtime. Active empagliflozin (Jardiance) 10 mg Take 10 mg by mouth in the morning. 4 Active Active Problems Problem Noted Date Diagnosed Date History of tobacco abuse 09/06/2024 Pain in right toe(s) 09/06/2024 Tinea unguium 09/06/2024 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 08/20/2024 Other cirrhosis of liver 03/15/2024 History of CEA (carotid endarterectomy) 03/11/20 Rest pain of both lower extremities due to ather osclerosis 01/08/2024 Carotid stenosis, asymptomatic, left 12/25/2023 Overview (09/06/2024): Last Assessment & Plan: Left CEA Cleared by cardiology Chronic kidney disease 11/03/2023 Hearing loss 11/03/2023 11/03/2023 Hyperlipidemia 11/03/2023 11/03/2023 Osteoarthritis 11/03/2023 11/03/2023 COPD (chronic obstructive pulmonary disease) 11/03/2023 Dyslipidemia 10/30/2023 11/03/2023 Gastroesophageal reflux disease without esophagi tis 10/30/2023 11/03/2023 Overview (11/03/2023): Last Assessment & Plan: Symptoms controlled with protonix and continue. Primary osteoarthritis of shoulders, bilateral 0 10/30/2023 11/03/2023 Overview (11/03/2023): Last Assessment & Plan: Mild pain but tolerable and use OTC PRN. Skin candidiasis 10/30/2023 11/03/2023 Overview (11/03/2023): Last Assessment & Plan: Developed rash and use cream PRN. Dizziness 09/19/2021 Diastolic heart failure 07/09/2021 PAD (peripheral artery disease) 06/11/2021 B12 deficiency 05/06/2021 Iron deficiency anemia 05/06/2021 Anemia 05/05/2021 Bilateral carotid bruits 05/05/2021 Chronic kidney disease, stage 3b 05/05/2021 Melena 05/05/2021 Overview (03/10/2023): Added automatically from request for surgery [id number] Peripheral neuropathy 05/05/2021 Syncope 05/05/2021 Aortic valve stenosis 03/03/2020 Coronary atherosclerosis 03/03/2020 Dyspnea 01/11/2019 Chronic eczematous otitis externa of both ears 0 10/15/2018 Bilateral impacted cerumen 10/15/2017 Hypertension 04/08/2017 Type 2 diabetes mellitus wit h chronic kidney disease, without long-term current use of insulin 04/08/2017 Family History Medical History Relation Name Comments No Known Problems Father No Known Problems Mother Relation Name Status Comments Father Mother Social History Tobacco Use Types Packs/Day Years Used Date Smoking Tobacco: Former Cigarettes 0 09/1949 - 2010 Smokeless Tobacco: Never Tobacco Cessation:Counseling Given: Not Answered Alcohol Use Standard Drinks/Week Comments Yes 0 (1 standard drink = 0.6 oz pur e alcohol) [place] Safety & Environment Answer Date Rec orded Fear of Current or Ex-Partner Not on file Emotionally Abused Not on file 11/06/2023 Physically Abused Not on file 11/06/2023 Sexually Abused Not on file 11/06/2023 Physically or Sexually Abused Not on file Sex and Gender Information Value Date Recorded Sex Assigned at Not on file Legal Sex Male 12:14 AM EDT Gender Identity Not on file Sexual Orientation Not on file Last Filed Vital Signs Vital Sign Reading Time Taken Comments Blood Pressure 102/52 09/06/2024 11:26 AM EST Pulse 61 09/06/2024 11:26 AM EST Temperature - - Respiratory Rate - - Oxygen Saturation 96% 09/06/2024 11:26 AM EST Inhaled Oxygen Concentration - - Weight 82.6 kg (182 lb) 09/06/2024 11:26 AM EST Height 168.9 cm (5' 6.5 ) 09/06/2024 11:26 AM ES T Body Mass Index 28.94 09/06/2024 11:26 AM EST Plan of Treatment Health Maintenance Due Date Last Done Comments Diabetes: Hemoglobin A1C 1935 Medicare Annual Wellness (AWV) 1935 Diabetes: Retinopathy Screening 1946 Depression Screening 1948 Diabetes: Urine Protein Screening 12/16/1955 Fall Risk Screening 2001 COVID-19 Vaccine ( season) 2025 06/01/2024, 01/09/2024, 06/13/2023, Additional history exists Influenza Vaccine (#1) 2025 , 06/13/2023, 06/25/2022, Additional history exists Adult Tetanus 10/31/2032 10/31/2022, 04/2019, 01/28/2014 Zoster Vaccines Completed 03/13/2022, 09/2021, 12/21/2014 Pneumococcal Vaccine: 50+ Years Completed 06/01/2024, 10/31/2022, 01/31/2022, Additional history exists HIB Vaccines Aged Out No longer eligi ble based on patient's age to complete this topic HPV Vaccines Aged Out No longer eligi ble based on patient's age to complete this topic IPV Vaccines Aged Out No longer eligi ble based on patient's age to complete this topic Meningococcal B Vaccine Aged Out No l onger eligible based on patient's age to complete this topic Meningococcal Vaccine Aged Out No melissa araceli eligible based on patient's age to complete this topic Rotavirus Vaccines Aged Out No longer eligible based on patient's age to complete this topic Insurance [employer] MEDICARE ADVANTAGE Care Teams Home Care Assistant Relationship Specialty Start Date End Date Jose Jewell MD [address] [place] [address] PCP - General 11/11/22
--- OUTSIDE RECORDS SUMMARY | 2025-05-30 12:34 | XMS_ITS | Encounter Summary ---
Author Organization [facility] Address [address] [place] [place] [address] Care Team Providers Care Analysis Engineer Name Role Phone Jose Jewell MD Primary Care Provider [phone] Encounter Details Date Type Department Care Team (Late st Contact Info) Description 11/22/2023 Clinisync Result Encounter [facility] External Department Unsolicited Provider, Generic External Data Social History Tobacco Use Types Packs/Day Years [...] Description 06/13/2025 1:00 PM EDT [facility] [address] [place] [address] Delia Bustos MD [address] [place] [address] [phone] (work) documented as of this encounter Procedures Procedure Name Priority Date/Time Associated Diagnosis Comments CT ABDOMEN/PELVIS WO CONT 11/22/2023 5:21 AM EST documented in this encounter Results * CT ABDOMEN/PELVIS WO CONT (11/22/2023 5:21 AM EST) Anatomical Region Laterality Modality Radiographic Elise ging 11/22/2023 5:21 AM EST Narrative 11/22/2023 5:24 AM EST [address] [address] [address] Scan Report Signed Patient: CARLO HENDERSON MR#: [id number] : 1935 Acct:[id number] Age/Sex: 87 / M ADM Date: 11/21/23 Loc: CT Attending Dr: Non-Staff Physician Hugo Ordering Physician: Jorge Sparks M.D. Date of Service: 11/21/23 Procedure(s): CT abdomen pelvis wo con Accession Number(s): [id number] cc: Jose Jewell M.D. [address] [address] Patient Name: CARLO HENDERSON MRN: [id number] date: 1935 Sex: M Assigned Patient Location: CT Current Patient Location: Accession/Order Number: [id number] Exam Date: 11/21/2023 14:57 Report Date: 11/22/2023 05:21 At the request of: NON-STAFF PHYSICIAN Procedure: CT abdomen pelvis wo con EXAMINATION: CT abdomen pelvis wo con HISTORY: Elevated Liver Enzymes, Right Lower Quadrant Tenderness , occasional nausea COMPARISON: CT abdomen pelvis 09/15/2019 TECHNIQUE: Axial, Coronal, and Sagittal images were obtained without and/or with IV contrast as indicated by examination type. Dose reduction techniques were achieved by using automated exposure control and/or adjustment of mA and/or kV according to patient size and/or use of iterative reconstruction technique. FINDINGS: LUNG BASES: Nodular liver margins suggestive of cirrhosis. LIVER: No enlargement, atrophy, suspicious density, or significant focal lesion. BILIARY: No dilatation or calcification. PANCREAS: No lesion, fluid collection, or abnormal duct dilatation. SPLEEN: No enlargement or focal lesion. ADRENALS: No mass or enlargement. KIDNEYS: Mild atrophy bilaterally. No mass, obstruction, or calcification. BOWEL/MESENTERY: Innumerable small diverticula involving the descending and sigmoid colon without acute inflammatory changes. No visible mass, obstruction, or bowel wall thickening. AORTA/VASCULAR: Marked atherosclerotic disease of aorta and branches. No aneurysm. RETROPERITONEUM: No mass or adenopathy. LYMPH NODES: No adenopathy. URINARY BLADDER: No visible focal wall thickening, lesion, or calculus. PELVIC ORGANS: No visible mass. Pelvic organs appropriate for patient age. ABDOMINAL WALL: No mass or hernia. Suspect prior umbilical hernia repair. BONES: No bony lesion or fracture. OTHER: Negative. CT/CT abdomen pelvis wo con IMPRESSION: 1. Nodular liver; nonspecific but suggestive of cirrhosis. No ascites, enlargement of the spleen, or secondary findings to suggest portal hypertension. 2. Colonic diverticulosis. 3. Marked atherosclerotic disease. Electronically authenticated by: KENDALL CABRERA Date: 11/22/2023 05:21 Dictated By: Kendall Cabrera M.D. Signed By: 11/22/23523 DD/ 0 TD/TT: Space Systems Operations Craftsman: Procedure Note Radiology, Radiologist, - 11/22/2023 [place] [address] CT Scan Report Signed Patient: CARLO HENDERSON [facility]#: [id number] : 1935cct:[id number] Age/Sex: 87 / MADM Date: 11/21/23 Loc: CT Attending Dr: Alia-Staff Physician Arias Ordering Physician: Jorge Sparks M.D. Date of Service: 11/21/23 Procedure(s): CT abdomen pelvis wo con Accession Number(s): [id number] cc: Jose Jewell M.D. [facility] [place] [address] Patient Name: CARLO HENDERSON MRN: [facility]:[id number] date: 1935 Sex: M Assigned Patient Location: CT Current Patient Location: Accession/Order Number: [id number] Exam Date: 11/21/2023 14:57 Report Date: 11/22/2023 05:21 At the request of: NON-STAFF PHYSICIAN Procedure: CT abdomen pelvis wo con EXAMINATION: CT abdomen pelvis wo con HISTORY: Elevated Liver Enzymes, Right Lower Quadrant Tenderness ,occasional nausea COMPARISON: CT abdomen pelvis 09/15/2019 TECHNIQUE: Axial, Coronal, and Sagittal images were obtained withoutand/or with IV contrast as indicated by examination type. Dose reductiontechniques were achieved by using automated exposure control and/or adjustment of mA and/or kV according to patient size and/or use of iterative reconstruction technique. FINDINGS: LUNG BASES: Nodular liver margins suggestive of cirrhosis. LIVER: No enlargement, atrophy, suspicious density, or significant focal lesion. BILIARY: No dilatation or calcification. PANCREAS: No lesion, fluid collection, or abnormal duct dilatation. SPLEEN: No enlargement or focal lesion. ADRENALS: No mass or enlargement. KIDNEYS: Mild atrophy bilaterally. No mass, obstruction, or calcification. BOWEL/MESENTERY: Innumerable small diverticula involving the descendingand sigmoid colon without acute inflammatory changes. No visible mass, obstruction, or bowel wall thickening. AORTA/VASCULAR: Marked atherosclerotic disease of aorta and branches. No aneurysm. RETROPERITONEUM: No mass or adenopathy. LYMPH NODES: No adenopathy. URINARY BLADDER: No visible focal wall thickening, lesion, or calculus. PELVIC ORGANS: No visible mass. Pelvic organs appropriate for patient age. ABDOMINAL WALL: No mass or hernia. Suspect prior umbilical hernia repair. BONES: No bony lesion or fracture. OTHER: Negative. CT/CT abdomen pelvis wo con IMPRESSION: 1. Nodular liver; nonspecific but suggestive of cirrhosis. No ascites, enlargement of the spleen, or secondary findings to suggest portal hypertension. 2. Colonic diverticulosis. 3. Marked atherosclerotic disease. Electronically authenticated by: KENDALL CABRERA Date: 11/22/2023 05:21 Dictated By: Kendall Cabrera M.D. Signed By:11/22/23523 DD/ 0 TD/TT: Space Systems Operations Craftsman: Generic External Data Provider IMG XR PROCEDURES Final Result documented in this encounter Visit Diagnoses Not on filedocumented in this encounter Care Teams Analysis Engineer Relationship Specialty Start Date End Date Jose Jewell MD PCP - General Family Medicine 10/06/23 documented as of this encounter
--- OUTSIDE RECORDS SUMMARY | 2025-05-30 12:34 | XMS_ITS | Encounter Summary ---
Author Organization [facility] [employer] Address [id number] [address] [place] [address] Care Team Providers Care Labor/Excavator Name Role Phone Jose Jewell MD Primary Care Provider [phone] Encounter Details Date Type Department Care Team (Late Contact Info) Description 04/26/2021 Orders Only [facility] [address] [place] [address] Ref Prov, [place] [address] Social History Tobacco Use Types Packs/Day Years Used Date Smoking Tobacco: Former Cigarettes 0.5 30 Smokeless Tobacco: Never Alcohol Use Standard Drinks/Week Comments No 0 (1 standard drink = 0.6 oz pur e alcohol) Childcare Answer Date Recorded Childcare Unknown 02/17/2019 Employment Answer Date Recorded Employment Unknown 02/17/2019 Purpose - Life Answer Date Recorded Purpose and direction in life Unknown Sex and Gender Information Value Date Recorded Sex Assigned at Not on file Legal Sex Male 11:23 AM EDT Gender Identity Not on file Sexual Orientation Not on file COVID-19 Exposure Response Date Recorded In the last month, have you been in contact with someone who was confirmed or suspected to have Coronavirus / COVID-19? No / Unsure 04/26/2021 9:42 AM EDT documented as of this encounter Plan of Treatment Upcoming Encounters Date Type Department Care Team (Late Contact Info) Description 05/31/2025 10:45 AM EDT Office Visit [facility] [address] [place] [address] Zari Newton, REWRITER-COLLECTION SYSTEMS TECHNICIAN [address] [place] [address] documented as of this encounter Procedures Procedure Name Priority Date/Time Associated Diagnosis Comments VASC ARTERIAL DUPLEX LOWER BILATERAL Routine 01/19/2021 VASC ARTERIAL DOPPLER LOWER BILATERAL MULTI LEVEL/PVR Routine 01/16/2021 VASC ARTERIAL DOPPLER LOWER BILATERAL MULTI LEVEL/PVR Routine 10/27/2020 documented in this encounter Results * Vas art duplex lwr bilateral (01/19/2021) Anatomical Region Laterality Modality Vascular Bilateral Ultrasound us Not In System Ref Prov CV VASCULAR ORDERABLES Fi nal Result * Vas art doppler lwr bilat mult lev/PVR (01/16/2021) Anatomical Region Laterality Modality Vascular Bilateral Ultrasound us Not In System Ref Prov CV VASCULAR ORDERABLES Fi nal Result * Vas art doppler lwr bilat mult lev/PVR (10/27/2020) Anatomical Region Laterality Modality Vascular Bilateral Ultrasound us Not In System Ref Prov CV VASCULAR ORDERABLES Fi nal Result documented in this encounter Visit Diagnoses Not on filedocumented in this encounter Additional Health Concerns Infection Onset Date Last Indicated Resolved Time Enteric Rule-Out 01/14/2025 01/14/2025 01/14/2025 4:04 PM EDT C. Difficile 01/14/2025 01/14/2025 01/24/2025 8:08 PM EDT documented as of this encounter Care Teams Labor/Excavator Relationship Specialty Start Date End Date Jose Jewell MD PCP - General 03/09/24 documented as of this encounter
--- OUTSIDE RECORDS SUMMARY | 2025-05-30 12:34 | XMS_ITS | Encounter Summary ---
Author Organization [facility] [employer] s [facility] Address [id number] [address] [place] [address] Care Team Providers Care Doctor Of Pharmacy Name Role Phone Jose Jewell MD Primary Care Provider [phone] Encounter Details Date Type Department Care Team (Late Contact Info) Description 08/14/2020 Orders Only [facility] [address] [place] [address] No Pcp, [place] [address] Social History Tobacco Use Types Packs/Day Years Used Date Smoking Tobacco: Former Cigarettes 0.5 30 Smokeless Tobacco: Never Alcohol Use Standard Drinks/Week Comments No 0 (1 standard drink = 0.6 oz pur e alcohol) Childcare Answer Date Recorded Childcare Unknown 02/17/2019 Employment Answer Date Recorded Employment Unknown 02/17/2019 Sex and Gender Information Value Date Recorded Sex Assigned at Not on file Legal Sex Male 11:23 AM EDT Gender Identity Not on file Sexual Orientation Not on file COVID-19 Exposure Response Date Recorded In the last month, have you been in contact with someone who was confirmed or suspected to have Coronavirus / COVID-19? Unable to assess 08/14/2020 1:14 PM EST documented as of this encounter Plan of Treatment Upcoming Encounters Date Type Department Care Team (Late Contact Info) Description 05/31/2025 10:45 AM EDT Office Visit [facility] [address] [place] [address] Zari Newton, RETAIL SALES ASSISTANT-DEBT RECOVERY OFFICER [address] [place] [address] documented as of this encounter Procedures Procedure Name Priority Date/Time Associated Diagnosis Comments VASC VENOUS DUPLEX LOWER BILATERAL Routine 07/25/2020 documented in this encounter Results * Vas venous duplex lwr bilateral (07/25/2020) Anatomical Region Laterality Modality Vascular Bilateral Ultrasound us Not In System Pcp CV VASCULAR ORDERABLES Edited Result - Final documented in this encounter Visit Diagnoses Not on filedocumented in this encounter Additional Health Concerns Infection Onset Date Last Indicated Resolved Time Enteric Rule-Out 01/14/2025 01/14/2025 01/14/2025 4:04 PM EDT C. Difficile 01/14/2025 01/14/2025 01/24/2025 8:08 PM EDT documented as of this encounter Care Teams Doctor Of Pharmacy Relationship Specialty Start Date End Date Jose Jewell MD PCP - General 03/09/24 documented as of this encounter
--- OUTSIDE RECORDS SUMMARY | 2025-05-30 12:34 | XMS_ITS | Encounter Summary ---
Author Organization [facility] Address [address] [place] [address] Care Team Providers Care Polymerization Engineer Name Role Phone Jose Jewell MD Primary Care Provider [phone] Encounter Details Date Type Department Care Team (Late st Contact Info) Description 02/09/2025 Orders Only [facility] [address] [facility] [place] [phone] Dominic Cordova MD [address] [place] [address], [address] [place], [place] [id number] Social History Tobacco Use Types Packs/Day Years Used Date Smoking Tobacco: Former Pipe Cigars Passive Smoke Exposure: Past Smokeless Tobacco: Never Comments:4 cigars a day x 30 plus years Alcohol Use Standard Drinks/Week Comments Not Currently 0 (1 standard drink = 0.6 oz [...] PM EDT Office Visit [facility] [place] [facility] [address] [place] [address] Delia Bustos MD [address], [address] [place] [address] documented as of this encounter Procedures Procedure Name Priority Date/Time Associated Diagnosis Comments DIABETIC RETINOPATHY SCREENING - OU - BOTH EYES Routine 02/09/2025 9:02 AM EDT documented in this encounter Results * Diabetic Retinopathy Screening - OU - Both Eyes (02/09/2025 9:02 AM EDT) Anatomical Region Laterality Modality Head Other Dominic Cordova MD OPHTH PHOTOGRAPHY Final Result documented in this encounter Visit Diagnoses Not on filedocumented in this encounter Care Teams Polymerization Engineer Relationship Specialty Start Date End Date Jose Jewell MD PCP - General Family Medicine 10/06/23 documented as of this encounter
--- OUTSIDE RECORDS SUMMARY | 2025-05-30 12:34 | XMS_ITS | Clinical Summary ---
Author Organization [facility] Address [address] [place] [address] Care Team Providers Care Air Drier Machine Operator Name Role Phone Jose Jewell MD Primary Care Provider [phone] Allergies Active Allergy Reactions Criticality Noted Date Comments Cefdinir Diarrhea 10/08/2023 Penicillins Diarrhea,Nausea And Vomiting,GI intolerance,Unknown Medium 05/05/2021 Shellfish Allergy Rash Low 01/28/2014 Medications hydrOXYzine HCl (Atarax) 25 MG tablet Take 25 mg by mouth Active tamsulosin (Flomax) 0.4 MG 24 hr capsule Take 0.4 mg by mouth in the morning. Active bumetanide (Bumex) 0.5 MG tablet Take 0.5 mg by mouth 1 (one) time each day at the same time Active ferrous sulfate 325 (65 Fe) MG tablet Take 65 mg by mouth in the morning. Take with meals. Active clopidogrel (Plavix) 75 MG tablet Take 75 mg by mouth Active cyanocobalamin (Vitamin B-12) 1000 MCG tablet Take 1,000 mcg by mouth Daily Active calcium carbonate (Os-Victor Hugo) 1250 (500 Ca) MG tablet Take 1 tablet by mouth in the morning and 1 tablet before bedtime. Active magnesium oxide 420 MG tablet Take 1 tablet by mouth Daily 4 Active albuterol HFA 90 mcg/act inhaler 1 puff 3 Active atorvastatin (Lipitor) 40 MG tablet 1 (one) time each day at the same time Active meclizine (Antivert) 25 MG tablet Take 25 mg by mouth as needed in the morning and 25 mg as needed at noon and 25 mg as needed in the evening and 25 mg as needed before bedtime. Active Glycopyrrolate-F ormoterol 9-4.8 MCG/ACT aerosol Inhale 2 puffs in the morning and 2 puffs before bedtime. Active clotrimazole (Lotrimin) 1 % creamIndications :Skin candidiasis Apply topically 2 (two) times a day 60 g 2 4 Active spironolactone (Aldactone) 50 MG tablet Take 1 tablet by mouth Daily Active carvedilol (Coreg) 6.25 MG tablet Take 1 tablet by mouth in the morning and 1 tablet in the evening. Take with meals. Active Lancets (Deminos Delica Plus [id number]) miscIndications: Type 2 diabetes mellitus with hyperglycemia, without long-term current use of insulin ([facility]) 3 times a day 100 each 3 5 Active vancomycin (Vancocin) 125 MG capsule Take 125 mg by mouth in the morning and 125 mg at noon and 125 mg in the evening and 125 mg before bedtime. 5 Active empagliflozin (Jardiance) 25 MGIndications:Ty pe 2 diabetes mellitus with hyperglycemia, with long-term current use of insulin ([facility]) Take 1 tablet (25 mg) by mouth Daily 90 tablet 1 5 Active SITagliptin (Januvia) 50 MG tabletIndication s:Type 2 diabetes mellitus with hyperglycemia, without long-term current use of insulin ([facility]) Take 1 tablet (50 mg) by mouth Daily 90 tablet 1 5 08/13/20 25 Active glimepiride (Amaryl) 2 MG tabletIndication s:Type 2 diabetes mellitus with hyperglycemia, without long-term current use of insulin ([facility]) Take 1 tablet (2 mg) by mouth in the morning and 1 tablet (2 mg) before bedtime. 180 tablet 1 5 Active lisinopril 20 MG tabletIndication s:Benign essential hypertension Take 1 tablet (20 mg) by mouth Daily 30 tablet 5 5 Active glucose blood (ParentsWareTouch Verio) test stripIndications :Type 2 diabetes mellitus with microalbuminuria , without long-term current use of insulin ([facility]) USE 1 TEST STRIP 3 TIMES A DAY 100 strip 3 5 Active pantoprazole (ProtoNix) 40 MG EC tabletIndication s:Gastroesophage al reflux disease without esophagitis Take 1 tablet (40 mg) by mouth in the morning. Take before meals. 90 tablet 3 5 Active pantoprazole (ProtoNix) 40 MG EC tablet Take 40 mg by mouth 05/03/20 25 Discontin ued(Reord er) Active Problems Problem Noted Date Diagnosed Date 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 08/20/2024 Assessment & Plan (08/20/2024 12:05 PM EST): Ears plugged and bilateral impaction on exam. Ears irrigated with water and cerumen removed with speculum. Able to clear right canal but left remains impacted. Will refer to ENT. Other cirrhosis of liver 03/15/2024 Assessment & Plan (11/02/2024 1:53 PM EST): Follow with GI. Assessment & Plan (04/29/2024 1:55 PM EDT): Follow with GI. Assessment & Plan (03/15/2024 2:59 PM EDT): Incidental finding of Liver Cirrhosis on CT abd. Formerly drank - not excessively though. Not previously known. Refer to GI. Carotid stenosis, right 03/11/2024 History of CEA (carotid endarterectomy) 03/11/20 24 Carotid stenosis, asymptomatic, left 12/25/2023 Overview (03/15/2024): Last Assessment & Plan: Left CEA Cleared by cardiology Chronic kidney disease 11/03/2023 Hyperlipidemia 11/03/2023 Osteoarthritis 11/03/2023 Assessment & Plan (05/03/2025 1:51 PM EDT): Pain stable and use OTC PRN. Coronary artery disease 10/30/2023 B12 deficiency 10/30/2023 Benign essential hypertension 10/30/2023 Assessment & Plan (05/03/2025 1:50 PM EDT): BP stable and monitor PRN. Assessment & Plan (11/02/2024 1:50 PM EST): BP low and very lightheaded. Decrease lisinopril. Monitor PRN. Assessment & Plan (04/29/2024 1:54 PM EDT): BP controlled and monitor PRN. Assessment & Plan (10/30/2023 3:15 PM EST): BP controlled and monitor PRN. Chronic heart failure with p reserved ejection fraction (HFpEF) 10/30/2023 Assessment & Plan (05/03/2025 1:50 PM EDT): Edema stable and continue medication. Wear compression stockings daily. Elevated legs PRN. Assessment & Plan (11/02/2024 1:51 PM EST): Edema stable and continue medication. Wear compression stockings daily. Elevated legs PRN. Assessment & Plan (04/29/2024 1:54 PM EDT): Edema stable and continue medication. Wear compression stockings daily. Elevated legs PRN. Assessment & Plan (10/30/2023 3:15 PM EST): Edema stable and continue medication. Wear compression stockings daily. Elevated legs PRN. COPD (chronic obstructive pulmonary disease) Assessment & Plan (05/03/2025 1:50 PM EDT): Breathing stable and follow with pulmonology. Assessment & Plan (11/02/2024 1:53 PM EST): Breathing stable and follow with pulmonology. Assessment & Plan (04/29/2024 1:55 PM EDT): Breathing stable and follow with pulmonology. Dyslipidemia 10/30/2023 Nonrheumatic aortic valve stenosis 10/30/2023 Primary osteoarthritis of shoulders, bilateral 0 10/30/2023 Assessment & Plan (11/02/2024 1:51 PM EST): Mild pain but tolerable and use OTC PRN. Assessment & Plan (04/29/2024 1:55 PM EDT): Mild pain but tolerable and use OTC PRN. Assessment & Plan (10/30/2023 3:16 PM EST): Mild pain but tolerable and use OTC PRN. Type 2 diabetes mellitus wit h microalbuminuria, without long-term current use of insulin 10/30/2023 Assessment & Plan (05/03/2025 1:51 PM EDT): BS stable and monitor. Assessment & Plan (01/19/2025 10:15 AM EDT): BS stable and monitor. Assessment & Plan (11/02/2024 1:51 PM EST): Reports BS elevated and follow up with endocrinology. Stick to ADA diet and limit carbs. Assessment & Plan (04/29/2024 1:55 PM EDT): Reports BS elevated and follow up with endocrinology. Stick to ADA diet and limit carbs. Assessment & Plan (10/30/2023 3:16 PM EST): Reports BS elevated and follow up with endocrinology. Stick to ADA diet and limit carbs. Gastroesophageal reflux disease without esophagi tis 10/30/2023 Assessment & Plan (05/03/2025 1:50 PM EDT): Worsening symptoms and resume protonix. Assessment & Plan (11/02/2024 1:51 PM EST): Symptoms controlled with protonix and continue. Assessment & Plan (04/29/2024 1:55 PM EDT): Symptoms controlled with protonix and continue. Assessment & Plan (10/30/2023 3:15 PM EST): Symptoms controlled with protonix and continue. PAD (peripheral artery disease) 06/11/2021 Assessment & Plan (10/30/2023 3:17 PM EST): Symptoms stable and follow up with vascular surgery. Chronic kidney disease, stage 3b 05/05/2021 Chronic venous insufficiency of lower extremity 09/04/2020 Resolved Problems Problem Noted Date Diagnosed Date Resolved Date Clostridium difficile colitis 01/19/2025 05/03/2025 Assessment & Plan (01/19/2025 10:15 AM EDT): Much improved and complete vanco. Add probiotic and recommend activia. Gastroenteritis 03/15/2024 04/29/2024 Assessment & Plan (03/15/2024 2:59 PM EDT): Recent ED visit for N/V/D - symptoms resolved. Reviewed hospital records, imaging and labs results. Skin candidiasis 10/30/2023 05/03/2025 Assessment & Plan (10/30/2023 3:16 PM EST): Developed rash and use cream PRN. Encounters Date Type Department Care Team Description 05/03/2025 1:00 PM EDT Office Visit [facility] [address] [place] [address] Jose Jewell MD Type 2 diabetes mellitus with microalbuminuria, without long-term current use of insulin (HCC) (Primary Dx); Benign essential hypertension ; Chronic heart failure with preserved ejection fraction (HFpEF) ([facility]); Chronic obstructive pulmonary disease, unspecified COPD type ([facility]); Gastroesophageal reflux disease without esophagitis; Primary osteoarthritis involving multiple joints 05/03/2025 Bamboo flowsheet [facility] [address] [place] [phone] Jose Jewell MD 03/13/2025 Refill [facility] [place] [facility] [address] [place] [phone] Delia Bustos MD Type 2 diabetes mellitus with microalbuminuria, without long-term current use of insulin (HCC) from Last 3 Months Immunizations Immunization Administration Dates Next Due ABRYSVO - Respiratory syncyt ial virus (RSV), vaccine, bivalent, protein subunit RSV prefusion F, diluent reconstituted, 0.5 mL, PF 01/09/2024 Influenza, High Dose Seasona l, Preservative Free 06/01/2024,06/16/2020 Influenza, High-dose Seasona l, Quadrivalent, Preservative Free 06/13/2023,06/25/2022 Influenza, Seasonal, Quadriv alent, Adjuvanted 07/19/2021 Influenza, Unspecified 06/15/2022,2020,05/16/2016,05/16,09/15/2014,06/15/2013 Influenza, injectable, quadr ivalent, preservative free 11/25/2018,07/01/2018 Pneumococcal Conjugate PCV 13 05/06/2021, 015 Pneumococcal Conjugate PCV 20 06/01/2024, 023 Pneumococcal Polysaccharide PPSV23 01/31/2022,,11/28/2015 Pneumococcal, Unspecified 11/28/2015 Tdap 10/31/2022,11/20/2018,01/28/2014 Zoster, Recombinant 03/13/2022,12/14/2021 Zoster, live 12/21/2014 Family History Medical History Relation Name Comments Heart disease Father COPD Mother Other cancer Mother Varicose Veins Diabetes Sibling Relation Name Status Comments Father Mother Sibling Social History Tobacco Use Types Packs/Day Years Used Date Smoking Tobacco: Former Pipe Cigars Passive Smoke Exposure: Past Smokeless Tobacco: Never Tobacco Cessation:Counseling Given: No Comments:4 cigars a day x 30 plus [...] Sign Reading Time Taken Comments Blood Pressure 104/50 05/03/2025 1:14 PM EDT Pulse 43 05/03/2025 1:14 PM EDT Temperature 36.4 C (97.5 F) 05/03/2025 1:14 PM EDT Respiratory Rate 18 05/03/2025 1:14 PM EDT Oxygen Saturation 97% 05/03/2025 1:14 PM EDT Inhaled Oxygen Concentration - - Weight 84.4 kg (186 lb) 05/03/2025 1:14 PM EDT Height 167.6 cm (5' 6 ) 05/03/2025 1:14 PM EDT Body Mass Index 30.02 05/03/2025 1:14 PM EDT Plan of Treatment Upcoming Encounters Date Type Department Care Team (Late st Contact Info) Description 06/13/2025 1:00 PM EDT Office Visit [facility] [place] [facility] [address] [place] [address] Delia Bustos MD [address] [place] [address] Health Maintenance Due Date Last Done Comments Diabetes: Urine Protein Screening 11/18/2024 024, 04/02/2018 Influenza Vaccine (#1) 2025 , 06/13/2023, 06/25/2022, Additional history exists Diabetes: Hemoglobin A1C 08/16/2025 025, 10/18/2024, 05/06/2024, Additional history exists Medicare Annual Wellness (AWV) 08/20/2025 08/20/2024 (Patient Refused) Diabetes: Retinopathy Screening 02/09/2027 02/09/2025, 07/22/2024, 11/17/2023 Pneumococcal Vaccine: 65+ Years Completed 06/01/2024, 10/31/2022, 01/31/2022, Additional history exists Procedures Procedure Name Priority Date/Time Associated Diagnosis Comments POCT GLYCOSYLATED HEMOGLOBIN (HGB A1C) Routine 02/14/2025 1:22 PM EDT Type 2 diabetes mellitus with hyperglycemia, without long-term current use of insulin (HCC) DIABETIC RETINOPATHY SCREENING - OU - BOTH EYES Routine 02/09/2025 9:02 AM EDT from Last 3 Months or Most Recently Relevant to Health Maintenance Results * POCT glycosylated hemoglobin (Hb A1C) docked device (02/14/2025 1:22 PM EDT) Hemoglobin A1C 6.8 Blood Venous blood specimen / Unknown 02/14/2025 1:22 PM EDT Delia Bustos MD POINT OF CARE TEST ENTER/EDIT ORDERABLES Final Result * Diabetic Retinopathy Screening - OU - Both Eyes (02/09/2025 9:02 AM EDT) Anatomical Region Laterality Modality Head Other us Dominic Cordova MD OPHTH PHOTOGRAPHY Final Result from Last 3 Months or Most Recently Relevant to Health Maintenance Insurance [employer] MED[employer]ARE [employer]VANTAGE Care Teams Air Drier Machine Operator Relationship Specialty Start Date End Date Jose Jewell MD PCP - General Family Medicine 10/06/23
--- OUTSIDE RECORDS SUMMARY | 2025-05-30 12:34 | XMS_ITS | Encounter Summary ---
Author Organization [facility] Address [address] [place] [address] Care Team Providers Care Crown Pouncer Name Role Phone Jose Jewell MD Primary Care Provider [phone] Encounter Details Date Type Department Care Team (Late st Contact Info) Description 01/15/2024 Clinisync Result Encounter [facility] External Department Unsolicited [...] [facility] [address] [place] [phone] Delia Bustos MD [address] [place] [address] documented as of this encounter Procedures Procedure Name Priority Date/Time Associated Diagnosis Comments SEGMENTAL BLOOD PRESSURE 01/15/2024 1:39 PM EDT documented in this encounter Results * SEGMENTAL BLOOD PRESSURE (01/15/2024 1:39 PM EDT) Anatomical Region Laterality Modality Radiographic Elise ging 01/15/2024 1:39 PM EDT Narrative 01/15/2024 3:29 PM EDT [facility] [place] [id number] Cardiology Report Signed Patient: CARLO HENDERSON MR#: [id number] : 1935 Acct:[id number] Age/Sex: 88 / M ADM Date: 01/15/24 Loc: CARD Attending Dr: Brisa Enciso M.D. Ordering Physician: Brisa Enciso M.D. Date of Service: 01/15/24 Procedure(s): CA segmental UE or LE REYNA Accession Number(s): [id number] cc: Jose Jewell M.D.; Brisa Enciso M.D. [facility] Test Date: 2024-01-15 Pat Name: CARLO HENDERSON Department: Room: - Gender: Male Sanitary Inspector: : 1935 Requested By: [id number] Order Number: [id number] Reading MD: SYLVESTER CHRISTENSEN Interpretive Statements Monophasic doppler waveforms PVR waveforms with normal upstroke, amplitude and dicrotic notch. Right: - no significant pressure gradients between cuffs - normal MARIEL and TBI Left: - significant pressure gradient between the calf and DP cuff - normal MARIEL and TBI IMpression: - elevated indices (B/L thigh, B/L calf, right DP and left PT) consistent with calcified, noncompressible arterial aparicio, which may underestimate the degree of arterial disease present. - normal arterial evaluation of the lower extremities without hemodynamic impairment of the B/L lower extremities at rest. (right MARIEL 1.76, left MARIEL 1.35) - clincal correlation advised Electronically Signed On 01-15-2024 15:29:47 EDT by SYLVESTER CHRISTENSEN Dictated By: Sylvester Christensen D.O. Signed By: 01/15/24 15201/15/24 152 DD/ 38 TD/TT: Beveller Operator: Procedure Note Radiology, Radiologist, - 01/15/2024 [place] [address] Cardiology Report Signed Patient: CARLO HENDERSON DMR#: [id number] : 1935cct:[id number] Age/Sex: 88 / MADM Date: 01/15/24 Loc: CARD Attending Dr: Brisa Enciso M.D. Ordering Physician: Brisa Enciso M.D. Date of Service: 01/15/24 Procedure(s): CA segmental UE or LE REYNA Accession Number(s): [id number] cc: Jose Jewell M.D.; Brisa Enciso M.D. [facility] Test Date: 2024-01-15 Pat Name: CARLO HENDERSON Department: Room: - Gender: Male Sanitary Inspector: : 1935 Requested By: 1892 Order Number: [id number] Reading MD: SYLVESTER CHRISTENSEN Interpretive Statements Monophasic doppler waveforms PVR waveforms with normal upstroke, amplitude and dicrotic notch. Right: - no significant pressure gradients between cuffs - normal MARIEL and TBI Left: - significant pressure gradient between the calf and DP cuff - normal MARIEL and TBI IMpression: - elevated indices (B/L thigh, B/L calf, right DP and left PT) consistent with calcified, noncompressible arterial aparicio, which may underestimatethe degree of arterial disease present. - normal arterial evaluation of the lower extremities without hemodynamic impairment of the B/L lower extremities at rest. (right MARIEL 1.76, left MARIEL 1.35) - clincal correlation advised Electronically Signed On 01-15-2024 15:29:47 EDT by SYLVESTER CHRISTENSEN Dictated By: Sylvester Christensen D.O. Signed By:01/15/24 15201/15/24 152 DD/ 38 TD/TT: Beveller Operator: us Generic External Data Provider IMG XR PROCEDURES Final Result documented in this encounter Visit Diagnoses Not on filedocumented in this encounter Care Teams Crown Pouncer Relationship Specialty Start Date End Date Jose Jewell MD PCP - General Family Medicine 10/06/23 documented as of this encounter
--- OUTSIDE RECORDS SUMMARY | 2025-05-30 12:34 | XMS_ITS | Encounter Summary ---
Author Organization [facility] Address [address] [place] [address] Care Team Providers Care Business Continuity Strategy Director Name Role Phone Jose Jewell MD Primary Care Provider [phone] Encounter Details Date Type Department Care Team (Late st Contact Info) Description 05/27/2024 Clinisync Result Encounter [facility] Department Unsolicited [...] Office Visit [facility] [address] [place] [id number] Delia Bustos MD [address] [place] [address] documented as of this encounter Procedures Procedure Name Priority Date/Time Associated Diagnosis Comments CA ECHO DOPPLER COMPLETE 05/27/2024 5:35 PM EDT documented in this encounter Results * CA ECHO DOPPLER COMPLETE (05/27/2024 5:35 PM EDT) Anatomical Region Laterality Modality Other 05/27/2024 5:35 PM EDT Narrative 05/27/2024 5:36 [place] [address] Cardiology Report Signed Patient: CARLO HENDERSON MR#: [id number] : 1935 Acct:[id number] Age/Sex: 88 / M ADM Date: 05/27/24 Loc: CARD Attending Dr: Jaiden Jones M.D. Ordering Physician: Jaiden Jones M.D. Date of Service: 05/27/24 Procedure(s): CA echo doppler complete Accession Number(s): [id number] cc: Jaiden Jones M.D.; Jose Jewell M.D. Patient Name: CARLO HENDERSON MR#: [id number] : 1935 Exam Date: 05/27/2024 Ordering Doctor: DR JAIDEN JONES M.D. ECHOCARDIOGRAM REPORT PROCEDURE: CA ECHO DOPPLER COMPLETE INDICATIONS: Aortic valve stenosis COMPARISON: None. DESCRIPTION: COMPLETE ECHOCARDIOGRAM Real-time transthoracic echocardiography with 2D, M-mode, spectral and color flow Doppler performed. QUALITY: Technical quality was good. LEFT VENTRICLE: Normal chamber size. Normal left ventricular wall thickness. LV EF: Global left ventricular systolic function is normal; visually estimated ejection fraction is 55%. No obvious wall motion abnormalities DIASTOLIC: Diastolic function is indeterminate. ATRIAL SEPTUM: Visually appears intact. LEFT ATRIUM: Moderate dilatation. RIGHT ATRIUM: Mild dilatation. RIGHT VENTRICLE: Normal chamber size. Normal right ventricular systolic function. TRICUSPID VALVE: Normal mobility and thickness. No stenosis with trivial regurgitation. No evidence of pulmonary hypertension. RVSP 33 mmHg MITRAL VALVE: Normal mobility and thickness. No evidence of mitral valve stenosis. There is no mitral annular calcification. Mild mitral regurgitation. AORTIC VALVE: Normal trileaflet appearance. Moderately calcified aortic valve with diminished mobility. Doppler velocity suggests mild aortic valve stenosis. DVI 0.3, SINAN 1.5 cm2. Mild aortic regurgitation. AORTIC ROOT: Normal diameter and appearance. Ascending aorta is normal in size. PULMONIC VALVE: Normal thickness and mobility. No stenosis. No regurgitation. PERICARDIUM: Anterior free space; trivial effusion versus fat pad. IVC: Collapses with inspirations. CONCLUSION: 1. Global left ventricular systolic function is normal; visually estimated ejection fraction is 55% 2. Normal right ventricular size and systolic function 3. Diastolic function is indeterminate 4. Biatrial dilatation 5. Mild mitral regurgitation 6. Mild aortic valve stenosis; mild aortic valve regurgitation 7. Anterior free space; trivial effusion versus fat pad Adult Echocardiography Procedure Report Left Ventricle LVEDD (3.7 - 5.6 cm): 4.65 cm LVESD (2.2 - 4.0 cm): 3.26 cm LVIVS thickness (0.6 - 1.2 cm): 0.95 cm LVPW thickness (0.5 - 1.0 cm): 1.03 cm e': 0.08 m/s E - e': 9.45 LVOT Max Gradient: 2.05 mm[Hg] LVOT Area (cm2): 0.72 m/s Peak Velocity (LVOT): 0.72 m/s Mean Velocity (LVOT): 0.55 m/s LVOT Diameter 2.39 cm Left Atrium Left Atrium Systolic Dimension: 3.77 cm Mitral Valve MV E to A Ratio: 0.84 Mitral Valve A-Wave Peak Velocity: 0.92 m/s Mitral Valve E-Wave Peak Velocity: 0.77 m/s Right Ventricle Aorta AO Root Diam: 3.31 cm Ascending Ao Diam: 2.89 cm Aortic Valve AoV Area (Peak Shaheen): 1.56 cm2, 1.56 cm2 AoV Area (VTI): 1.48 cm2, 1.48 cm2 Deceleration Mcintosh: 1.66 m/s2 Pressure Half-Time: 596.82 ms Peak Velocity(Antegrade Flow): 2.06 m/s, 1.97 m/s Peak Gradient(Antegrade Flow): 17.01 mm[Hg], 15.50 mm[Hg] Mean Velocity(Antegrade Flow): 1.44 m/s, 1.36 m/s Mean Gradient(Antegrade Flow): 9.40 mm[Hg], 8.36 mm[Hg] Velocity Time Integral: 49.77 cm, 48.21 cm Tricuspid Valve Peak Velocity (Regurgitant Flow): 2.75 m/s Pulmonic Valve Mean Gradient: 1.90 mm[Hg] Mean Velocity: 0.64 m/s Peak Velocity: 1.03 m/s, 1.24 m/s Peak Gradient: 6.16 mm[Hg], 4.21 mm[Hg] Right Atrium Dictated by: Jaiden Jones M.D. on 05/27/2024 at 17:31 Approved by: Jaiden Jones M.D. on 05/27/2024 at 17:35 Dictated By: Jaiden Jones M.D. Signed By: 05/27/24 1736 DD/ 34 TD/TT: Battery Parts Assembler: Procedure Note Radiology, Radiologist, MD - 05/27/2024 [place] [address] Cardiology Report Signed Patient: CARLO HENDERSON DMR#: [id number] : 1935cct:[id number] Age/Sex: 88 / MADM Date: 05/27/24 Loc: CARD Attending Dr: Jaiden Jones M.D. Ordering Physician: Jaiden Jones M.D. Date of Service: 05/27/24 Procedure(s): CA echo doppler complete Accession Number(s): [id number] cc: Jaiden Jones M.D.; Jose Jewell M.D. Patient Name: CARLO HENDERSON MR#: [id number] : 1935 Exam Date: 05/27/2024 Ordering Doctor: DR JAIDEN JONES M.D. ECHOCARDIOGRAM REPORT PROCEDURE: CA ECHO DOPPLER COMPLETE INDICATIONS: Aortic valve stenosis COMPARISON: None. DESCRIPTION: COMPLETE ECHOCARDIOGRAM Real-time transthoracic echocardiography with 2D, M-mode, spectral and color flow Dopplerperformed. QUALITY: Technical quality was good. LEFT VENTRICLE: Normal chamber size. Normal left ventricular wall thickness. LV EF: Global left ventricular systolic function is normal; visually estimated ejection fraction is 55%. No obvious wall motion abnormalities DIASTOLIC: Diastolic function is indeterminate. ATRIAL SEPTUM: Visually appears intact. LEFT ATRIUM: Moderate dilatation. RIGHT ATRIUM: Mild dilatation. RIGHT VENTRICLE: Normal chamber size. Normal right ventricular systolic function. TRICUSPID VALVE: Normal mobility and thickness. No stenosis withtrivial regurgitation. No evidence of pulmonary hypertension. RVSP 33 mmHg MITRAL VALVE: Normal mobility and thickness. No evidence of mitralvalve stenosis. There is no mitral annular calcification. Mild mitral regurgitation. AORTIC VALVE: Normal trileaflet appearance. Moderately calcifiedaortic valve with diminished mobility. Doppler velocity suggests mild aorticvalve stenosis. DVI 0.3, SINAN 1.5 cm2. Mild aortic regurgitation. AORTIC ROOT: Normal diameter and appearance. Ascending aorta is normalin size. PULMONIC VALVE: Normal thickness and mobility. No stenosis. No regurgitation. PERICARDIUM: Anterior free space; trivial effusion versus fat pad. IVC: Collapses with inspirations. CONCLUSION: 1. Global left ventricular systolic function is normal; visually estimated ejection fraction is 55% 2. Normal right ventricular size and systolic function 3. Diastolic function is indeterminate 4. Biatrial dilatation 5. Mild mitral regurgitation 6. Mild aortic valve stenosis; mild aortic valve regurgitation 7. Anterior free space; trivial effusion versus fat pad Adult Echocardiography Procedure Report Left Ventricle LVEDD (3.7 - 5.6 cm): 4.65 cm LVESD (2.2 - 4.0 cm): 3.26 cm LVIVS thickness (0.6 - 1.2 cm): 0.95 cm LVPW thickness (0.5 - 1.0 cm): 1.03 cm e': 0.08 m/s E - e': 9.45 LVOT Max Gradient: 2.05 mm[Hg] LVOT Area (cm2): 0.72 m/s Peak Velocity (LVOT): 0.72 m/s Mean Velocity (LVOT): 0.55 m/s LVOT Diameter 2.39 cm Left Atrium Left Atrium Systolic Dimension: 3.77 cm Mitral Valve MV E to A Ratio: 0.84 Mitral Valve A-Wave Peak Velocity: 0.92 m/s Mitral Valve E-Wave Peak Velocity: 0.77 m/s Right Ventricle Aorta AO Root Diam: 3.31 cm Ascending Ao Diam: 2.89 cm Aortic Valve AoV Area (Peak Shaheen): 1.56 cm2, 1.56 cm2 AoV Area (VTI): 1.48 cm2, 1.48 cm2 Deceleration Mcintosh: 1.66 m/s2 Pressure Half-Time: 596.82 ms Peak Velocity(Antegrade Flow): 2.06 m/s, 1.97 m/s Peak Gradient(Antegrade Flow): 17.01 mm[Hg], 15.50 mm[Hg] Mean Velocity(Antegrade Flow): 1.44 m/s, 1.36 m/s Mean Gradient(Antegrade Flow): 9.40 mm[Hg], 8.36 mm[Hg] Velocity Time Integral: 49.77 cm, 48.21 cm Tricuspid Valve Peak Velocity (Regurgitant Flow): 2.75 m/s Pulmonic Valve Mean Gradient: 1.90 mm[Hg] Mean Velocity: 0.64 m/s Peak Velocity: 1.03 m/s, 1.24 m/s Peak Gradient: 6.16 mm[Hg], 4.21 mm[Hg] Right Atrium Dictated by: Jaiden Jones M.D. on 05/27/2024 at 17:31 Approved by: Jaiden Jones M.D. on 05/27/2024 at 17:35 Dictated By: Jaiden Jones M.D. Signed By:05/27/24 1736 DD/ 34 TD/TT: Battery Parts Assembler: Generic External Data Provider [facility] Final Result documented in this encounter Visit Diagnoses Not on filedocumented in this encounter Care Teams Business Continuity Strategy Director Relationship Specialty Start Date End Date Jose Jewell MD PCP - General Family Medicine 10/06/23 documented as of this encounter
--- OUTSIDE RECORDS SUMMARY | 2025-05-30 12:35 | XMS_ITS | Patient Health Record ---
Author Organization [facility] [place] Address [address] [place] [address] Care Team Providers Care Leather Roller Name Role Phone Jose Jewell MD Primary Care Provider Unavailab liliam Keith Gallegos Unavailable [phone] Allergies Allergen (clinical drug ingredient) Drug/Non Drug Allergy documented on EMR Reaction Allergy Type Onset Date Status Penicillin diarrhea Drug Allergy Active Reason For Referral No Information Medications Medication SIG (Take, Route, Frequency, Duration) Notes Start Date End Date Status Coreg 3.125 MG 1 tablet with food O rally Twice a day Active hydrOXYzine HCl 25 MG 1 tablet at bedtim e as needed Orally Once a day Active Ferrous Sulfate 325 (65 Fe) MG 1 tablet Orally Three times a Week Active Januvia 50 MG as directed Orally Active Ipratropium-Albuterol 0.5-2.5 (3) MG/3ML 3mL Inhalation q4H; Duration: 30 days 08/25/2024 Active metFORMIN HCl 850 MG 1 tablet with a adriana l Orally Once a day Active Meclizine HCl 25 MG 1 tablet as needed O rally every 12 hrs Active I75-Lsxnph 1 MG as directed Orally Active Plavix 75 MG 1 tablet Orally Once a day Active Atorvastatin Calcium 40 MG 1 tablet Oral ly Once a day Active Pantoprazole Sodium 40 MG 1 tablet Orall y Once a day Active Calcium 500 MG 1 tablet with meals Orally Twice a day Active Bumetanide 0.5 MG 1 tablet Orally Once a day Active Albuterol Sulfate HFA 108 (90 Base) MCG/ACT 2 puffs as needed for SOB Inhalation Q4H; Duration: 30 days Active Bevespi Aerosphere 9-4.8 MCG/ACT 2 puffs Inhalation Twice a day; Duration: 90 days Active Immunizations Vaccine Route Administration Date Status Comme nts Abrysvo Unknown 01/09/2024 Administered Flu, Fluad (95720) 65 yrs + High Dose Seasonal (5448-7088) Unknown 06/01/2024 Administered Flu, Fluzone High-Dose (2022 -2023) (11239) 65 yrs+ Unknown 06/13/2023 Administered Flu, Fluzone High-Dose (9066 2) 65 yrs+ (6363-7421) Unknown 06/25/2022 Administered Pneumococcal (Pneumovax 23) Unknown 06/15/2017 Administ ered Pneumococcal (Pneumovax 23) Unknown 01/31/2022 Administ ered Pneumococcal (Prevnar 13) Unknown 05/06/2021 Administer ed Pneumococcal (Prevnar 20) Unknown 06/01/2024 Administer ed SARS-COV-2 (COVID 19) bivale nt 30 mcg/0.3 ml dose Unknown 06/25/2022 Administered Spikevax Moderna Syringe Pre -Filled 50 mcg/0.5 mL Unknown 01/09/2024 Administered Spikevax Moderna Syringe Pre -Filled 50 mcg/0.5 mL Unknown 06/01/2024 Administered Tdap (Boostrix) Unknown 11/20/2018 Administered ZOSTER (SHINGLES) VACCINE (HZV) Unknown 12/14/2021 Admi nistered ZOSTER (SHINGLES) VACCINE (HZV) Unknown 03/13/2022 Admi nistered Zoster (Zostavax) Unknown 12/21/2014 Administered Social History Tobacco Use: Social History Observation [...] Additional Findings: Tobacco non-user Ex-cigar s moker Problems Problem Type SNOMED Code ICD Code Onset Dates Problem Status W/U Status Risk Notes Problem Osteoarthritis (843724242) Osteoarthritis (M19.90) Active confirmed Problem COPD - Chronic obstructive pulmonary disease (44774336) COPD (chronic obstructive pulmonary disease) (J44.9) Active confirmed Problem Diabetes mellitus type 2 (disorder) (39085440) DM2 (diabetes mellitus, type 2) (E11.9) Active confirmed Problem Ex-tobacco user (finding) (302794547) History of tobacco abuse (Z87.891) Active confirmed Vital Signs Heart Rate 94 /min 03/28/2025 Temperature 96.9 degrees Fahrenheit 03/28/2025 Respiratory Rate 18 /min 03/28/2025 Oximetry 94 % 03/28/2025 Blood pressure diastolic 71 mm Hg 03/28/2025 Height 68 in 03/28/2025 Blood pressure systolic 110 mm Hg 03/28/2025 Weight 180.8 lbs 03/28/2025 BMI 27.49 kg/m2 03/28/2025 Encounters Encounter Location Date Provider Diagnosis Pulmonary Medicine [address] [address] 08/25/2024 [facility] COPD (chronic obstructive pulmonary disease) J44.9 ; DM2 (diabetes mellitus, type 2) E11.9 ; Osteoarthritis M19.90 and History of tobacco abuse Z87.891 Pulmonary Medicine [address] [address] 03/28/2025 [facility] COPD (chronic obstructive pulmonary disease) J44.9 ; DM2 (diabetes mellitus, type 2) E11.9 ; Osteoarthritis M19.90 and History of tobacco abuse Z87.[address] [address] 08/18/2024 [facility] Pulmonary Medicine [address] [address] 10/26/2024 [facility] Assessments Encounter Date Diagnosis (ICD Code) Assessment Notes Treatment Notes Treatment Clinical Notes Section Notes 08/25/2024 COPD (chronic obstructive pulmonary disease) (ICD-10 - J44.9) Prior treatment: Stiolto ~ Bevespi, Trelegy (unable to generate enough NIF) Patient's breathing has been worsening over the past several months. He has remained on Bevespi as that is the preferred agent on his formulary, but even that is becoming more expensive. He previously did well with Stiolto, but that is not covered. Yupelri is not covered either. Patient was advised that he would need to contact his insurance company regarding formulary to see what is available or not. Our office did contact his insurance, and their preferred agent is an oral, but he cannot tolerate dry powder inhaler such as an oral Ellipta as he cannot generate enough NIF). For now, I suggested he return to DuoNeb and use that every 4 hours as he does voice some mild improvement in symptoms with use. Fortunately, this is not ideal given the peaks and valleys from every 4 hour dosing. That there is a cheaper alternative for him however. He voiced that he would do that. He can continue using Bevespi for [place] in the morning, avoiding DuoNeb within at least 2 hours to avoid a pharmacodynamic reaction between the medications. I do not feel he requires a prednisone taper at this point. Additionally, I like to avoid steroids if possible given his underlying diabetes. I noted that he was wearing a Exhbit hat. I asked if he had any involvement with the [place]. He states he does see Dr. Edwards @ [facility]. I advised the patient that Stiolto is currently a [facility]-approved inhaler; since he responded well to Stiolto in the past, he should ask Dr. Edwards if he could get a prescription through the [place]. The patient stated that he would contact the [facility] to see what assistance they could provide. Given the change in his regimen and worsening symptoms, I recommended following up with him in 2 months for close monitoring. Patient voiced agreement. 03/28/2025 COPD (chronic obstructive pulmonary disease) (ICD-10 - J44.9) Prior treatment: Stiolto ~ Bevespi > Trelegy; Yupelri not covered Patient remains symptomatic. Not on any maintenance inhaler, and underdosing DuoNeb. Affordability has been an issue in the past. Patient was advised again to ask the [facility] about coverage with Stiolto. In the meantime, he should use DuoNeb 4-6 times/day. 03/28/2025 DM2 (diabetes mellitus, type 2) (ICD-10 - E11.9) Steroids prescribed for this patient's underlying pulmonary disease can adversely affect blood glucose levels, inducing hyperglycemia and worsening underlying diabetes. The patient is encouraged to follow up with the primary care provider to create a plan to manage diabetes in this situation. 08/25/2024 DM2 (diabetes mellitus, type 2) (ICD-10 - E11.9) Steroids prescribed for this patient's underlying pulmonary disease can adversely affect blood glucose levels, inducing hyperglycemia and worsening underlying diabetes. The patient is encouraged to follow up with the primary care provider to create a plan to manage diabetes in this situation. 08/25/2024 Osteoarthritis (ICD-10 - M19.90) Has osteoarthritis of the hands which makes using traditional inhalers more difficult to activate and manipulate. This is also contributing to neuromuscular weakness affecting his ability to have a full deep breath, therefore reducing effective NIF. 03/28/2025 Osteoarthritis (ICD-10 - M19.90) Has osteoarthritis of the hands which makes using traditional inhalers more difficult to activate and manipulate. 03/28/2025 History of tobacco abuse (ICD-10 - Z87.891) This patient does not meet current LDCT criteria (e.g. age, time from cessation, # pack-years). 08/25/2024 History of tobacco abuse (ICD-10 - Z87.891) This patient does not meet current LDCT criteria (e.g. age, time from cessation, # pack-years). 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
--- OUTSIDE RECORDS SUMMARY | 2025-05-30 12:35 | XMS_ITS | Clinical Summary ---
Author Organization [employer] [facility] tem Address [facility] [id number] [address] [place] [address] Care Team Providers Care Equipment Records Supervisor Name Role Phone Jose Jewell MD Primary Care Provider [phone] Allergies Active Allergy Reactions Criticality Noted Date Comments Cefdinir Diarrhea 10/08/2023 Penicillins Nausea And Vomiting Low 05/05/2021 Shellfish Containing Products Rash Low 2013 Medications ACCU-CHEK SOFTCLIX LANCETS lancets 01/01/20 17 Active meclizine (ANTIVERT) 25 mg tablet Take 1 tablet (25 mg total) by mouth 4 (four) times a day as needed for dizziness. Active pioglitazone (ACTOS) 15 mg tablet Take 1 tablet (15 mg total) by mouth in the morning. 03/27/20 21 Active fluticasone furoate-vilanteroL (BREO ELLIPTA) 100-25 mcg/dose blister with device Inhale 1 puff in the morning. Active carvediloL (COREG) 6.25 mg tablet Take 1 tablet (6.25 mg total) by mouth 2 (two) times a day with meals. 60 tablet 05/08/20 21 Active cyanocobalamin 1000 MCG tablet Take 1 tablet (1,000 mcg total) by mouth daily. 30 tablet 05/09/20 21 Active pantoprazole (PROTONIX) 40 mg EC tablet Take 1 tablet (40 mg total) by mouth every morning before breakfast. 30 tablet 05/08/20 21 Active chlorthalidone (HYGROTON) 25 mg tablet Take 1 tablet (25 mg total) by mouth daily. Active lisinopriL (PRINIVIL,ZESTRIL) 40 mg tablet Take 0.5 tablets (20 mg total) by mouth in the morning. Active bumetanide (BUMEX) 0.5 mg tablet Take 1 tablet (0.5 mg total) by mouth 2 (two) times a day before meals. Take 4 pills bid 10/14/19 Active glimepiride (AMARYL) 4 mg tablet Take 1 tablet (4 mg total) by mouth every morning before breakfast. 11/25/19 24 Active glycopyrrolate-for moteroL (BEVESPI AEROSPHERE) 9-4.8 mcg HFA aerosol inhaler Inhale 2 puffs in the morning and 2 puffs before bedtime. Active magnesium oxide 420 mg tablet Take 1 tablet by mouth in the morning. 10/14/19 Active JANUVIA 50 mg tablet Take 1 tablet (50 mg total) by mouth in the morning. Active tamsulosin (FLOMAX) 0.4 mg capsule Take 1 capsule (0.4 mg total) by mouth nightly. 10/31/19 24 Active empagliflozin (JARDIANCE) 10 mg tablet tablet Take 1 tablet (10 mg total) by mouth in the morning. Active clopidogreL (PLAVIX) 75 mg tablet Take 1 tablet (75 mg total) by mouth in the morning. Active hydrOXYzine (ATARAX) 25 mg tablet Take 1 tablet (25 mg total) by mouth 3 (three) times a day as needed for itching. Active xkhztkxg-wziq-DD-c alcium &mins (THERAGRAN-M) 9 mg iron-400 mcg tablet Take 1 tablet by mouth in the morning. Active ferrous sulfate 325 (65 FE) mg EC tablet Take 1 tablet (325 mg total) by mouth in the morning and 1 tablet (325 mg total) at noon and 1 tablet (325 mg total) in the evening. Take with meals. Active acetaminophen (acetaminophen Extra Strength) 500 mg tablet Take 2 tablets (1,000 mg total) by mouth every 6 (six) hours as needed (pain - pain rated 1-4). 30 tablet 02/12/20 24 Active ondansetron ODT (ZOFRAN ODT) 4 mg disintegrating tabletIndications: Gastroenteritis Dissolve 1 tablet (4 mg total) on tongue 3 (three) times a day as needed for nausea for up to 3 doses. 3 tablet 03/09/20 24 Active ondansetron ODT (ZOFRAN ODT) 4 mg disintegrating tabletIndications: Diarrhea, unspecified type Dissolve 1 tablet (4 mg total) on tongue every 8 (eight) hours as needed for nausea for up to 10 doses. 10 tablet 01/15/20 25 Active acetaminophen (TYLENOL EXTRA STRENGTH) 500 mg tablet Take 1 tablet (500 mg total) by mouth every 6 (six) hours as needed for pain. 05/13/20 Active atorvastatin (LIPITOR) 40 mg tablet Take 1 tablet (40 mg total) by mouth in the morning. 04/01/20 17 Discontinu ed(Stop Taking at Discharge) calcium carbonate (OS-SHIRA) 500 mg elemental (1,250 mg) tablet Take 1 tablet (500 mg total) by mouth in the morning. Discontinu ed(Stop Taking at Discharge) HYDROcodone-acetam inophen (NORCO) 5-325 mg per tabletIndications: Acute post-operative pain Take 1 tablet by mouth every 6 (six) hours as needed for pain for up to 3 days. Max Daily Amount: 4 tablets 12 tablet 05/13/20 Active Problems Problem Noted Date Diagnosed Date Hypomagnesemia 05/12/2025 RLQ abdominal pain 05/11/2025 Acute urinary retention 05/11/2025 Cirrhosis of liver with ascites ([facility]) 2024 History of CEA (carotid endarterectomy) 03/11/20 24 Carotid stenosis, right 03/11/2024 Rest pain of both lower extremities due to ather osclerosis 01/08/2024 Assessment & Plan (01/08/2024 1:21 PM EDT): PVR and follow up Carotid stenosis, asymptomatic, left 12/25/2023 Assessment & Plan (01/08/2024 1:21 PM EDT): Left CEA Cleared by cardiology Assessment & Plan (12/25/2023 9:24 AM EDT): L CEA versus stenting for high grade stenosis Needs cardiac clearance first CKD (chronic kidney disease) 12/25/2023 PAD (peripheral artery disease) 06/11/2021 Assessment & Plan (01/22/2024 11:41 AM EDT): He does not have significant occlusive disease. Will continue with medical therapy Iron deficiency anemia 05/06/2021 B12 deficiency 05/06/2021 Syncope 05/05/2021 Anemia 05/05/2021 Peripheral neuropathy 05/05/2021 Bilateral carotid bruits 05/05/2021 Assessment & Plan (01/22/2024 11:41 AM EDT): Left carotid endarterectomy Chronic kidney disease, stage 3b 05/05/2021 Melena 05/05/2021 Overview (05/06/2021): Added automatically from request for surgery [id number] Chronic venous insufficiency of lower extremity 09/04/2020 Chronic eczematous otitis externa of both ears 0 10/15/2018 Bilateral impacted cerumen 10/15/2017 Type 2 diabetes mellitus wit h chronic kidney disease, without long-term current use of insulin 04/08/2017 Hypertension 04/08/2017 Encounters Date Type Department Care Team Description 05/12/2025 12:05 PM EDT - 05/12/2025 1:05 PM EDT Surgery [facility] - Surgery [address] [place] [address] Shaggy Ivy DO LAPAROSCOPIC APPENDECTOMY [53973 (CPT )] 05/12/2025 11:19 AM EDT Anesthesia Event [facility] - Surgery [address] [place] [address] Renzo Gibbs DO 05/11/2025 9:29 AM EDT - 05/13/2025 6:40 PM EDT Hospital Encounter [facility] - Acute Care [address] [place] [address] Benito Abdalla MD Luis M, Estephanie Plascencia MD RLQ abdominal pain (Primary Dx); Gallbladder anomaly; Acute urinary retention; Cirrhosis of liver with ascites, unspecified hepatic cirrhosis type (CMS-HCC) ; Syncope, unspecified syncope type; Acute post-operative pain Discharge Disposition: Home 05/11/2025 Travel from Last 3 Months Immunizations Immunization Administration Dates Next Due Influenza High Dose Preservative Free IM 020 Influenza Vaccine, Quadrivalent, Adjuvanted 12/2020 Influenza, High-dose, Quadrivalent 06/13/2023, Influenza, Injectable, quadrivalent (PF) 019,07/01/2018 Pneumococcal Conjugate 13-Valent 05/06/2021 Pneumococcal Polysaccharide 01/31/2022, 7 RSV, bivalent, protein subun it RSVpreF, diluent reconstituted, 0.5 mL, PF 01/09/2024 Tdap 11/20/2018 Zoster Live 12/21/2014 Zoster Vaccine Recombinant 03/13/2022,12/14/2021 Family History Medical History Relation Name Comments Diabetes Brother Arthritis Father Emphysema Father Heart disease Father Anesthesia problems Neg Hx Relation Name Status Comments Brother Father Mother Social History Tobacco Use Types Packs/Day Years Used Date Smoking Tobacco: Former Cigarettes 0.5 30 Cigars Smokeless Tobacco: Never Tobacco Cessation:Counseling Given: Not Answered Alcohol Use Standard Drinks/Week Comments No 0 (1 standard drink = 0.6 oz pur e alcohol) Overdogities Answer Date Recorded In the past 12 months has e [employer], gas, oil, or water [email or web address] threatened to shut off services in your home? No 02/11/2024 AUDIT-C Answer Date Recorded Q1: How often do you have a drink containing alcohol? Never 02/11/2024 Q2: How many drinks containi ng alcohol do you have on a typical day when you are drinking? Patient does not drink Q3: How often do you have si x or more drinks on one occasion? Never 02/11/2024 PHQ-2 Answer Date Recorded Total Score 0 02/11/2024 PRAPARE - Transportation Answer Date Re corded In the past 12 months, has l ack of transportation kept you from medical appointments or from getting medications? No 01/14 In the past 12 months, has l ack of transportation kept you from meetings, work, or from getting things needed for daily living? No 02/11/2024 Housing Instability Answer Date Recorde d Are you worried or concerned that in the next two months you may not have stable housing that you own, rent or stay in as a part of a household? No 02/11/2024 Childcare Answer Date Recorded Childcare Unknown 02/17/2019 Employment Answer Date Recorded Employment Unknown 02/17/2019 Hunger Screening Answer Date Recorded Within the past 12 months we worried whether our food would run out before we got money to buy more. Never True 05/11/2025 Within the past 12 months th e food we bought just didn't last and we didn't have money to get more. Never True 05/11/2025 Purpose - Life Answer Date Recorded Purpose and direction in life Unknown Sex and Gender Information Value Date Recorded Sex Assigned at Not on file Legal Sex Male 11:23 AM EDT Gender Identity Not on file Sexual Orientation Not on file Last Filed Vital Signs Vital Sign Reading Time Taken Comments Blood Pressure 139/82 05/13/2025 4:15 PM EDT Pulse 79 05/13/2025 4:15 PM EDT Temperature 36.9 C (98.4 F) 05/13/2025 4:15 PM EDT Respiratory Rate 20 05/13/2025 4:15 PM EDT Oxygen Saturation 93% 05/13/2025 4:15 PM EDT Inhaled Oxygen Concentration - - Weight 83.1 kg (183 lb 3.2 oz) 05/13/2025 6:00 A M EDT Height 167.6 cm (5' 6 ) 05/12/2025 10:48 AM EDT Body Mass Index 29.57 05/12/2025 10:48 AM EDT Plan of Treatment Upcoming Encounters Date Type Department Care Team (Late st Contact Info) Description 05/31/2025 10:45 AM EDT Office Visit [facility] [address] [place] [id number] Zari Newton APRN-SHERIE [address] [place] [address] Health Maintenance Due Date Last Done Comments Fall Risk Screening 2001 Depression Screening 02/10/2025 02/11/2024 Influenza Vaccine 05/16/2025 06/01/2024, , 06/25/2022, Additional history exists Tobacco Screening 05/12/2026 05/12/2025 DTaP,Tdap and Td Vaccines (4 - Td or Tdap) 10/31/2032 10/31/2022, 11/20/2018, 01/28/2014 Zoster (Shingles) Vaccine Completed 2021, 12/14/2021, 12/21/2014 COVID-19 Vaccine Completed 12/13/2024, , 01/09/2024, Additional history exists Goals Goal Patient Goal Type Associated Problems Recent Progress Patient-Stated? Author Home with [facility] General Yes Pepper Albrecht LSW Note: Evaluation of progress towards goal: Safe dc return home with family support and resume with [facility]. Return Home General No Padmini Fink, ALEXUS Note: Patient would like to return home after discharge. Medical Devices Implanted Type Area Playroom Attendant Device Identifier Shelf Expiration Date Model / Serial / Lot Patch Cv 8x.8cm N-Pyrg Tpr End Phot[employer]ix Decellularized Bvn Rpl [id number] - [id number] Implanted:Qty: 1 on 02/11/2024 by Brisa Enciso MD at [facility] Graft [employer]IFE 08/23/2025 [id number] / / [id number] Procedures Procedure Name Priority Date/Time Associated Diagnosis Comments BEDSIDE GLUCOSE Routine 05/13/2025 4:18 PM EDT BEDSIDE GLUCOSE Routine 05/13/2025 11:32 AM EDT EXTRA TUBES BLUE TOP Routine 05/13/2025 4:31 AM EDT EXTRA TUBES Routine 05/13/2025 4:31 AM EDT CBC WITH AUTO DIFFERENTIAL Routine 05/13/2025 4:31 AM EDT MAGNESIUM Routine 05/13/2025 4:31 AM EDT COMPREHENSIVE METABOLIC PANEL Routine 05/13/2025 4:31 AM EDT BEDSIDE GLUCOSE Routine 05/12/2025 8:09 PM EDT BEDSIDE GLUCOSE Routine 05/12/2025 4:14 PM EDT SURGICAL PATHOLOGY Routine 05/12/2025 12 :01 PM EDT NJ AN ELECTIVE ENDOTRACHEAL AIRWAY Routine 05/12/2025 11:27 AM EDT NJ LAP,APPENDECTOMY 05/12/2025 1 1:19 AM EDT right lower quadrant abdominal pain PROTIME & INR Routine 05/12/2025 9:32 AM EDT BEDSIDE GLUCOSE Routine 05/12/2025 8:35 AM EDT NM HEPATOBILIARY SYS IMAGING W PHARMACOLOGIC AGENT STAT 05/12/2025 8:17 AM EDT LACTATE W/ REFLEX Routine 05/12/2025 5:2 4 AM EDT CBC WITH AUTO DIFFERENTIAL Routine 05/12/2025 5:24 AM EDT MAGNESIUM Routine 05/12/2025 5:24 AM EDT COMPREHENSIVE METABOLIC PANEL Routine 05/12/2025 5:24 AM EDT BEDSIDE GLUCOSE Routine 05/12/2025 5:23 AM EDT BEDSIDE GLUCOSE Routine 05/11/2025 7:35 PM EDT BEDSIDE GLUCOSE Routine 05/11/2025 4:09 PM EDT BEDSIDE GLUCOSE Routine 05/11/2025 1:03 PM EDT US ABDOMEN LMTD STAT 05/11/2025 12:45 PM EDT POCT NURSING URINE MACROSCOPIC UA Routine 05/11/2025 11:23 AM EDT ER EXTRA URINE MARBLE STAT 05/11/2025 11:08 AM EDT ER EXTRA URINE CULTURE STAT 11:08 AM EDT ER EXTRA URINE STAT 05/11/2025 11:08 AM EDT URINALYSIS STAT 05/11/2025 11:[address] ABDOMEN AND PELVIS W CONT STAT 05/11/2025 10:26 AM EDT EXTRA TUBES BLUE TOP Routine 05/11/2025 9:43 AM EDT EXTRA TUBES Routine 05/11/2025 9:43 AM EDT LACTATE W/ REFLEX STAT 05/11/2025 9:4 2 AM EDT COMPREHENSIVE METABOLIC PANEL STAT 05/11/2025 9:42 AM EDT CBC WITH AUTO DIFFERENTIAL STAT 05/11/2025 9:42 AM EDT ECG 12-LEAD STAT 05/11/2025 9:31 AM EDT from Last 3 Months Results * (ABNORMAL) Bedside Glucose *Place/Obtain serum glucose if >500 per glucometer. (05/13/2025 4:18 PM EDT) Only the most recent of9 resultswithin the time period is included. Bedside Glucose (POC) 176(H) 65 - 99 mg/dL 05/13/2025 9:53 PM EDT [facility] arterial/capilla ry 05/13/2025 4:18 PM EDT 05/13/2025 9:53 PM EDT us Estephanie Asencio MD POINT OF CARE TEST ORDERABLES Final Result Performing Organization Address City/[facility]/ZIP Co de Phone Number [address] [place] [address], [place] * Light Blue Top (05/13/2025 4:31 AM EDT) Only the most recent of2 resultswithin the time period is included. Extra Tube Auto Resulted 05/13/2025 6:03 AM EDT [facility] Blood Venous blood / Unknown 05/13/2025 4:31 AM EDT 05/13/2025 5:23 AM EDT us Estephanie Asencio MD LAB BLOOD ORDERABLES Final Res ult Performing Organization Address [facility] Co de Phone Number [address] [place] [address], [place] * (ABNORMAL) CBC auto differential (05/13/2025 4:31 AM EDT) Only the most recent of3 resultswithin the time period is included. WBC 7.0 4 - 11 x10E9/L 05/13/2025 5:32 AM EDT [facility] RBC Count 3.26(L) 4.1 - 5.7 X10E12/L 05/13/2025 5:32 AM EDT [facility] Hemoglobin 11.5(L) 13 - 17 g/dL 05/13/2025 5:32 AM EDT [facility] Hematocrit 33.5(L) 39 - 50 % 05/13/2025 5:32 AM EDT [facility] MCV 103(H) 80 - 100 fL 05/13/2025 5:32 AM EDT [facility] MCH 35.2(H) 27 - 34 pg 05/13/2025 5:32 AM EDT [facility] MCHC 34.2 32 - 36 g/dL 05/13/2025 5:32 AM EDT [facility] RDW 15.1(H) 11.5 - 15 % 05/13/2025 5:32 AM EDT [facility] Platelet Count 138(L) 150 - 450 X10E9/L 05/13/2025 5:32 AM EDT [facility] MPV 8.9 7 - 12 fL 05/13/2025 5:32 AM EDT [facility] Neutrophils % 70.0 % 05/13/2025 5:32 AM EDT [facility] Lymphocytes % 14.1 % 05/13/2025 5:32 AM EDT [facility] Monocytes % 8.5 % 05/13/2025 5:32 AM EDT [facility] Eosinophils % 6.3 % 05/13/2025 5:32 AM EDT [facility] Basophils % 1.1 % 05/13/2025 5:32 AM EDT [facility] Neutrophils Absolute (A) 4.9 1.5 - 6.6 10*3/uL 05/13/2025 5:32 AM EDT [facility] Lymphocytes Absolute 1.0 1.0 - 3.5 10*3/uL 05/13/2025 5:32 AM EDT [facility] Monocytes Absolute 0.6 0.0 - 0.9 10*3/uL 05/13/2025 5:32 AM EDT [facility] Eosinophils Absolute 0.4 0.0 - 0.4 10*3/uL 05/13/2025 5:32 AM EDT [facility] Basophils Absolute 0.1 0.0 - 0.2 10*3/uL 05/13/2025 5:32 AM EDT [facility] Differential Type AUTOMATED DIFFERENTIAL 05/13/2025 5:32 AM EDT [facility] Blood Venous blood / Unknown Venipuncture / Unknown 05/13/2025 4:31 AM EDT 05/13/2025 5:21 AM EDT Leo Szymanski TRIGONOMETRY TUTOR-[employer] LAB BLOOD ORDERABLES Fin al Result Performing Organization Address City/[facility] Co de Phone Number [address] [address], * Magnesium (05/13/2025 4:31 AM EDT) Only the most recent of2 resultswithin the time period is included. MAGNESIUM 2.5 1.8 - 2.6 mg/dL 05/13/2025 6:15 AM EDT [facility] Blood Venous blood / Unknown Venipuncture / Unknown 05/13/2025 4:31 AM EDT 05/13/2025 5:21 AM EDT Leo D [employer] TRIGONOMETRY TUTOR-[employer] LAB BLOOD ORDERABLES Fin al Result Performing Organization Address [facility] de Phone Number [address] [place] [address], [place] * (ABNORMAL) Comprehensive metabolic panel (05/13/2025 4:31 AM EDT) Only the most recent of3 resultswithin the time period is included. SODIUM 137 134 - 146 mmol/L 05/13/2025 6:15 AM EDT [facility] POTASSIUM 4.3 3.5 - 5.0 mmol/L 05/13/2025 6:15 AM EDT [facility] CHLORIDE 103 98 - 109 mmol/L 05/13/2025 6:15 AM EDT [facility] CARBON DIOXIDE 26 22 - 32 mmol/L 05/13/2025 6:15 AM EDT [facility] ANION GAP 8 5 - 15 mmol/L 05/13/2025 6:15 AM EDT [facility] BLOOD UREA NITROGEN 24 5 - 27 mg/dL 05/13/2025 6:15 AM EDT [facility] CREATININE 1.24(H) 0.70 - 1.20 mg/dL 05/13/2025 6:15 AM EDT [facility] Comment:METHOD TRACEABLE TO IDMS STANDARD GLUCOSE 95 65 - 99 mg/dL 05/13/2025 6:15 AM EDT [facility] CALCIUM 8.3(L) 8.5 - 10.5 mg/dL 05/13/2025 6:15 AM EDT [facility] TOTAL PROTEIN 6.5 6.0 - 8.0 g/dL 05/13/2025 6:15 AM EDT [facility] ALBUMIN 2.8(L) 3.2 - 5.3 g/dL 05/13/2025 6:15 AM EDT [facility] ALKALINE PHOSPHATASE 171(H) 39 - 130 U/L 05/13/2025 6:15 AM EDT [facility] AST 35 <=41 U/L 05/13/2025 6:15 AM EDT [facility] ALT 24 <=40 U/L 05/13/2025 6:15 AM EDT [facility] BILIRUBIN,TOTAL 1.2 0.3 - 1.2 mg/dL 05/13/2025 6:15 AM EDT [facility] EGFR Non-Race Dependent 56(L) >=60 ml/min/1.7 3sq.m 05/13/2025 6:15 AM EDT [facility] Comment: eGFR not reported due to non-numeric value for Creatinine. Reported eGFR is based on the CKD-EPI 2020 equation that does not use a race coefficient. Blood Venous blood / Unknown Venipuncture / Unknown 05/13/2025 4:31 AM EDT 05/13/2025 5:21 AM EDT us Leo Szymanski TRIGONOMETRY TUTOR-[employer] LAB BLOOD ORDERABLES Fin al Result [facility] [address] [place] [address], * Surgical Pathology (05/12/2025 12:01 PM EDT) Case Report Surgical Pathology Report Case: [id number] Authorizing Provider: Shaggy Ivy DO Collected: 05/12/2025 1201 Ordering Location: [facility] Received: 05/12/2025 1614 [facility] - Surgery Pathologist: Salo Garcia MD Specimen: Appendix 05/20/2025 11:46 AM EDT [facility] Final Diagnosis Vermiform appendix, laparoscopic appendectomy: Fecaliths (multiple), appendix lumen. 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 No evidence of active acute appendicitis is identified. The entire vermiform appendix has been submitted for examination and evaluation. 05/20/2025 11:46 AM EDT [facility] at 1146 EDT Gross Description Received in formalin labeled SUAREZ, appendix is a vermiform appendix 3.9 cm in length by 0.5 cm in diameter. The serosa is cas[place]-pen[place], smooth and dusky, and surfaced by exudate. There is attached mesoappendix up to 1.3 cm in thickness. The proximal margin is shaved and inked black. The appendix is sectioned to reveal fibrous obliteration of the distal tip, and a lumen ranging from 0.2 cm-0.3 cm in diameter filled with multiple brown firm fecaliths, 0.8 x 0.5 x 0.3 cm in aggregate. No discrete perforation is identified. One half of the distal tip and the proximal margin are submitted in cassette A and community health program representative cross sections of the body are submitted in cassette B. (2, ss, [id number], m2) SW After initial microscopic evaluation, the remainder of the appendix is submitted in cassette C. The remaining mesocolon is retained. (3, ss, [id number]) . 05/20/2025 11:46 AM EDT [facility] Embedded Images 05/20/2025 11:46 AM T [facility] Tissue (Appendix) 05/12/2025 12:01 PM EDT 05/12/2025 4:14 PM EDT Comment:Pre-op diagnosis: right lower quadrant abdominal pain us Shaggy E Grillis DO PATHOLOGY/CYTOLOGY ORDERABL ES Final Result [facility] [address] [place] [address], [place] [phone] * [place] AN ELECTIVE ENDOTRACHEAL AIRWAY (05/12/2025 11:27 AM EDT) Manasa Lukasz Rivero APRN-CRNA - 05/12/2025 11:27 AM EDT Lukasz Govind KEI Rivero 05/12/2025 11:59 AM Airway Patient location during procedure: OR Urgency: Elective Date/Time: 05/12/2025 11:27 AM Airway not difficult IV In Situ: Peripheral General Information and Staff Service Provider: KEI Baxter Placed by: KEI Baxter Patient Identified, IV Checked, Risks and Benefits Discussed, Surgical Consent, Monitors and Equipment Checked, Pre-op Evaluation and Timeout Performed Fire Risk Assessment Score: 0 Consent for Emergent Airway (if performed for an anesthetic, see related documentation for consents) Risks and benefits: risks, benefits and alternatives were discussed Indications and Patient Condition Sedation level: Deep Preoxygenated: yesPatient position: Supine MILS maintained throughout Mask difficulty assessment: Not Attempted Indications for airway management: Anesthesia Complications: No Complicating Factors: No Final Airway Details Final airway type: ETT Endotracheal airway: Cuffed Techniques used for successful ETT Placement: With Stylet and Direct Laryngoscopy Cormack-Lehane Classification: Grade I Adjuncts used in placement: Cricoid Pressure Endotracheal tube insertion site: Oral Post Intubation Trauma? No Visibility: Cords Clear Blade: Izabela Blade size: #4 Placement verified by: chest auscultation, capnography and symmetrical chest wall movement ETT size: 7.0 mm Measured from: Lips Number of attempts at approach: 1 Additional Comments Easy airway Lukasz CHOUDHURY ANESTHESIA ORDERABLES F inal Result * Protime & INR (05/12/2025 9:32 AM EDT) PROTIME 13.0 9.8 - 13.2 sec 05/12/2025 9:45 AM EDT [facility] INR 1.1 0.9 - 1.2 05/12/2025 9:45 AM EDT [facility] Blood Venous blood / Unknown Venipuncture / Unknown 05/12/2025 9:32 AM EDT 05/12/2025 9:35 AM EDT us Shaggy Ivy DO LAB BLOOD ORDERABLES Final Result [facility] [address] [place] [address], [place] * NM hepatobiliary system imaging with pharmacologic agent (05/12/2025 8:17 AM EDT) Anatomical Region Laterality Modality Nuc Med N/A Nuclear Medicine 05/12/2025 8:19 AM EDT Narrative 05/12/2025 8:20 AM EDT CLINICAL INFORMATION:evaluate for cholecystistis, we do need ejection fracton . COMPARISON: None. PROCEDURE: Following the intravenous administration of 5.0 mCi Tc-99m Mebrofenin, sequential abdominal images were obtained until the gallbladder was maximally filled with radionuclide. Following this, 1.65 mcg Kinevac administered without symptoms. Time/activity curves were generated for calculation of ejection fraction. FINDINGS: There is prompt, uniform tracer accumulation by the liver with normal filling of the intrahepatic ducts, common bile duct and gallbladder, and normal tracer excretion into the duodenum. The gallbladder ejection fraction measures 26%. IMPRESSION: * No evidence of acute cholecystitis. * Abnormal gallbladder ejection fraction concerning for biliary dyskinesia. Finalized by Siva Nuno MD on 05/12/2025 8:20 AM Procedure Note Siva Nuno MD - 05/12/2025 CLINICAL INFORMATION:evaluate for cholecystistis, we do need ejectionfracton . COMPARISON: None. PROCEDURE: Following the intravenous administration of 5.0 mCi Tc-99mMebrofenin, sequential abdominal images were obtained until thegallbladder was maximally filled with radionuclide. Following this, 1.65mcg Kinevac administered without symptoms. Time/activity curves weregenerated for calculation of ejection fraction. FINDINGS: There is prompt, uniform tracer accumulation by the liver with normalfilling of the intrahepatic ducts, common bile duct and gallbladder, andnormal tracer excretion into the duodenum. The gallbladder ejectionfraction measures 26%. IMPRESSION: * No evidence of acute cholecystitis. * Abnormal gallbladder ejection fraction concerning for biliarydyskinesia. Finalized by Siva Nuno MD on 05/12/2025 8:20 AM us Leo Szymanski APRN-SO[employer]ER IMG NM ORDERABLES Final Result * Lactate w/ Reflex (05/12/2025 5:24 AM EDT) Only the most recent of2 resultswithin the time period is included. LACTATE W/REFLEX 1.4 0.4 - 2.0 mmol/L 05/12/2025 5:49 AM EDT [facility] Blood Venous blood / Unknown Venipuncture / Unknown 05/12/2025 5:24 AM EDT 05/12/2025 5:30 AM EDT Narrative [facility] - 05/12/2025 5:49 AM EDT Result did not trigger repeat Lactate, re-order if needed. Leo Szymanski APRN-[employer]ER LAB BLOOD ORDERABLES Fin al Result [facility] [address] [place] [address], [place] * Ultrasound abdomen limited (05/11/2025 12:45 PM EDT) Anatomical Region Laterality Modality Body, Abdomen Ultrasound 05/11/2025 12:5 2 PM EDT Narrative 05/11/2025 12:53 PM EDT US ABDOMEN LMTD Clinical history:RLQ pain/cirrhosis of liver/distended gallbladder pain Comparison: None. Findings: Real-time sonographic evaluation the abdomen performed. The portions of the pancreas appear to be unremarkable. Increased hepatic echotexture with nodular surface contour suggestive of cirrhosis. Gallbladder is distended with trace pericholecystic fluid and mild gallbladder wall thickening. No definitive cholelithiasis or biliary dilatation. Common bile duct measures 0.3 cm. Impression: Distended gallbladder with trace.] Fluid and gallbladder wall thickening which is nonspecific and could be seen with acalculous cholecystitis versus underlying hepatocellular disease or CHF. No biliary dilatation. Increased hepatic echotexture with nodular surface contour suggestive of cirrhosis. Finalized by Shaggy Fraser MD on 05/11/2025 12:53 PM Procedure Note Shaggy Fraser MD - 05/11/2025 US ABDOMEN LMTD Clinical history:RLQ pain/cirrhosis of liver/distended gallbladder pain Comparison: None. Findings: Real-time sonographic evaluation the abdomen performed. The portions ofthe pancreas appear to be unremarkable. Increased hepatic echotexture with nodular surface contour suggestive ofcirrhosis. Gallbladder is distended with trace pericholecystic fluid andmild gallbladder wall thickening. No definitive cholelithiasis or biliarydilatation. Common bile duct measures 0.3 cm. Impression: Distended gallbladder with trace.] Fluid and gallbladder wall thickeningwhich is nonspecific and could be seen with acalculous cholecystitisversus underlying hepatocellular disease or CHF. No biliary dilatation. Increased hepatic echotexture with nodular surface contour suggestive ofcirrhosis. Finalized by Shaggy Fraser MD on 05/11/2025 12:53 PM Shaggy Ivy [place] [facility] [place] Final Res ult * (ABNORMAL) POCT Nursing Urine Macroscopic UA (05/11/2025 11:23 AM EDT) POC Urine Specific [place] 1.015 1.010, 1.015, 1.020, 1.025 05/11/2025 11:13 AM EDT [facility] POC Urine Leukocyte Esterase Negative Negative 05/11/2025 11:13 AM EDT [facility] POC Urine Nitrite Negative Negative 05/11/2025 11:13 AM EDT [facility] POC Urine pH 7.5 5.0, 6.0, 6.5, 7.0, 7.5, 8.0, 8.5, 5.5 05/11/2025 11:13 AM EDT [facility] POC Urine Protein Trace(A) Negative 05/11/2025 11:13 AM EDT [facility] POC Urine Glucose 500 mg/dL(A) Negative 05/11/2025 11:13 AM EDT [facility] POC Urine Ketones Negative Negative 05/11/2025 11:13 AM EDT [facility] POC Urine Urobilinogen 0.2 E.U./dL 05/11/2025 11:13 AM EDT [facility] POC Urine Bilirubin Negative Negative 05/11/2025 11:13 AM EDT [facility] POC Urine Blood/HGB Trace(A) Negative 05/11/2025 11:13 AM EDT [facility] Urine 05/11/2025 11:2 3 AM EDT 05/11/2025 11:13 AM EDT us Benito Abdalla MD POINT OF CARE TEST ORDERABLES Final Result Performing Organization Address City/[facility]/ZIP Co de Phone Number [address] [address], [place] * Extra Urine [place] (05/11/2025 11:08 AM EDT) Extra Tube Auto Resulted 05/11/2025 1:01 PM EDT [facility] Urine Urine specimen collection, clean catch / Unknown 05/11/2025 11:08 AM EDT 05/11/2025 12:32 PM EDT us Benito Abdalla MD URINE ORDERABLES Final Result Performing Organization Address City/[facility]/ZIP Co de Phone Number [address] [address], [place] * Extra Urine Culture (05/11/2025 11:08 AM EDT) Extra Tube Auto Resulted 05/11/2025 1:01 PM EDT [facility] Urine Urine specimen collection, clean catch / Unknown 05/11/2025 11:08 AM EDT 05/11/2025 12:32 PM EDT us Benito Abdalla MD URINE ORDERABLES Final Result Performing Organization Address City/[facility]/ZIP Co de Phone Number [address] [place] [address], [place] * Extra Urine (05/11/2025 11:08 AM EDT) Extra Tube Auto Resulted 05/11/2025 1:01 PM EDT [facility] Urine Urine specimen collection, clean catch / Unknown 05/11/2025 11:08 AM EDT 05/11/2025 12:32 PM EDT us Benito Abdalla MD URINE ORDERABLES Final Result Performing Organization Address [facility] de Phone Number [address] [place] [address], [place] * (ABNORMAL) Urinalysis (05/11/2025 11:07 AM EDT) COLOR Yellow Yellow 05/11/2025 4:16 PM EDT [facility] TURBIDITY Clear Clear 05/11/2025 4:16 PM EDT [facility] SPECIFIC GRAVITY 1.010 1.003 - 1.035 05/11/2025 4:16 PM EDT [facility] NITRITE Negative Negative 05/11/2025 4:16 PM EDT [facility] PH,URINE 7.0 5.0 - 8.5 05/11/2025 4:16 PM EDT [facility] LEUKOCYTE ESTERASE Negative Negative 05/11/2025 4:16 PM EDT [facility] PROTEIN Negative Negative 05/11/2025 4:16 PM EDT [facility] KETONES (URINE) Negative Negative 4:16 PM EDT [facility] UROBILINOGEN 0.2 eu/dL 0.2 eu/dL, 1.0 eu/dL 05/11/2025 4:16 PM EDT [facility] BILIRUBIN (URINE) Negative Negative 05/11/2025 4:16 PM EDT [facility] BLOOD/HGB Negative Negative 05/11/2025 4:16 PM EDT [facility] GLUCOSE (URINE) >=1000 mg/dL(A) Negative, 250 mg/dL 05/11/2025 4:16 PM EDT [facility] Urine Urine / Unknown 05/11/2025 1 1:07 AM EDT 05/11/2025 3:34 PM EDT us Benito Abdalla MD URINE ORDERABLES Final Result [facility] [address] [place] [address], [place] * CT abdomen and pelvis with contrast (05/11/2025 10:26 AM EDT) Anatomical Region Laterality Modality Body, Abdomen, Body Covera N/A Compu benito Tomography 05/11/2025 10:3 3 AM EDT Narrative 05/11/2025 10:[address] ABDOMEN AND PELVIS W CONT HISTORY: RLQ pain COMPARISON STUDY: 01/14/2025 TECHNIQUE: CT scan of the abdomen and pelvis performed with IV no oral contrast. 100 mL of Omnipaque 300 was injected intravenously without complication. Coronal and sagittal reformats generated and reviewed. FINDINGS: LOWER THORAX: Trace left, small right pleural effusions. HEPATOBILIARY: Nodular hepatic contour. No focal aggressive appearing hepatic lesions. No biliary ductal dilatation. Distended gallbladder with mild pericholecystic fluid SPLEEN: Granulomatous. Borderline splenomegaly measuring up to 13.5 cm. PANCREAS: No focal masses or ductal dilatation. ADRENALS: No large adrenal nodules. KIDNEYS/URETERS: Symmetric renal nephrograms No aggressive appearing mass lesion. No obstructive nephrolithiasis. No collecting system dilatation. Bladder: Distended. PELVIC ORGANS: Within normal limits. GI TRACT: No acute bowel obstruction. Colonic diverticulosis without inflammatory change. The appendix is within normal limits. LYMPH NODES: No enlarged lymph nodes. VESSELS: No acute thrombus. No abdominal aortic aneurysm. Upper abdominal varices. Severe SMA stenosis. BONES AND SOFT TISSUES: No suspicious osseous lesion. Diastasis recti without maribell hernia. PERITONEUM/RETROPERITONEUM: Small volume free fluid. No free air. IMPRESSION: * Distended gallbladder with pericholecystic fluid, nonspecific in the setting of underlying hepatic dysfunction. If there is clinical concern for cholecystitis, consider further evaluation with ultrasound. * Cirrhotic liver morphology with mild splenomegaly, small volume ascites, and upper abdominal varices including esophageal varices. * Trace left, small right pleural effusions. * Severe SMA stenosis. All CT scans at this facility use dose modulation, iterative reconstruction, and/or weight based dosing when appropriate to reduce radiation dose to as low as reasonably achievable. Finalized by Param Boo on 05/11/2025 10:40 AM Procedure Note Param Boo MD - 05/11/2025 CT ABDOMEN AND PELVIS W CONT HISTORY: RLQ pain COMPARISON STUDY: 01/14/2025 TECHNIQUE: CT scan of the abdomen and pelvis performed with IV no oralcontrast. 100 mL of Omnipaque 300 was injected intravenously withoutcomplication. Coronal and sagittal reformats generated and reviewed. FINDINGS: LOWER THORAX: Trace left, small right pleural effusions. HEPATOBILIARY: Nodular hepatic contour. No focal aggressive appearinghepatic lesions. No biliary ductal dilatation. Distended gallbladder withmild pericholecystic fluid SPLEEN: Granulomatous. Borderline splenomegaly measuring up to 13.5 cm. PANCREAS: No focal masses or ductal dilatation. ADRENALS: No large adrenal nodules. KIDNEYS/URETERS: Symmetric renal nephrograms No aggressive appearing masslesion. No obstructive nephrolithiasis. No collecting systemdilatation. Bladder: Distended. PELVIC ORGANS: Within normal limits. GI TRACT: No acute bowel obstruction. Colonic diverticulosis withoutinflammatory change. The appendix is within normal limits. LYMPH NODES: No enlarged lymph nodes. VESSELS: No acute thrombus. No abdominal aortic aneurysm. Upper abdominalvarices. Severe SMA stenosis. BONES AND SOFT TISSUES: No suspicious osseous lesion. Diastasis rectiwithout maribell hernia. PERITONEUM/RETROPERITONEUM: Small volume free fluid. No free air. IMPRESSION: * Distended gallbladder with pericholecystic fluid, nonspecific in thesetting of underlying hepatic dysfunction. If there is clinical concernfor cholecystitis, consider further evaluation with ultrasound. * Cirrhotic liver morphology with mild splenomegaly, small volumeascites, and upper abdominal varices including esophageal varices. * Trace left, small right pleural effusions. * Severe SMA stenosis. All CT scans at this facility use dose modulation, iterativereconstruction, and/or weight based dosing when appropriate to reduceradiation dose to as low as reasonably achievable. Finalized by Param Boo on 05/11/2025 10:40 AM Benito Abdalla MD IMG CT ORDERABLES Final Result * ECG 12 lead (05/11/2025 9:31 AM EDT) 05/11/2025 9:31 AM EDT Benito Abdalla MD ECG ORDERABLES Final Result [facility] from Last 3 Months Insurance [employer] MEDICARE [facility] [employer] Advance Directives * Full Code (Latest Code Status on File) Date Activated Date Inactivated Comments 05/11/2025 1:07 PM 05/13/2025 8:46 PM * Full Code Date Activated Date Inactivated Comments 05/05/2021 6:35 PM 05/08/2021 6:04 PM Care Teams Equipment Records Supervisor Relationship Specialty Start Date End Date Jose Jewell MD PCP - General 03/09/24
[2025-05-30 14:44] LABS: Albumin Level 3.0 g/dL (3.4-5.0); Anion Gap 11.7; Blood Urea Nitrogen 35.0 mg/dL (7.0-18.0); Calcium 9.1 mg/dL (8.5-10.1); Carbon Dioxide 29.4 mmol/L (21.0-32.0); Chloride 107 mmol/L (98-107); Cholesterol 225 mg/dL (<=200); Estimated GFR (African America 49 (>=60 mL/min/1.73m^2); Estimated GFR (Non-African Ame 40 (>=60 mL/min/1.73m^2); Glucose 178 mg/dL (74-106); HDL Cholesterol 49 mg/dL (40-60); Potassium 4.1 mmol/L (3.5-5.1); Sodium 144 mmol/L (136-145); Triglycerides 180 mg/dL (<=150); VLDL CHOLESTEROL 36.0 mg/dL
[2025-05-30 14:50] LABS: Microalbum Creatinine Ratio Ur 126.1 mg/g (0.0-29.9)
--- OUTSIDE RECORDS SUMMARY | 2025-05-30 15:16 | XMS_ITS | CCD ---
Author Organization [facility] Care Team Providers Care Staff Therapist Name Role Phone SELF, REFERRED Referring Unavailable ELENA BARNETT Admitting Unavailable ELENA BARNETT Attending Unavailable JOSE BREWER Primary Care Unavailable Kaur Huizar Unavailable MD Kaur Huizar Primary Care Provider MD Kaur Huizar Attending Provider KAREEN CRABTREE Attending Unavailable KAREEN [...] NADERER, DR JOSE Dhaliwal Primary Care Unavailable [facility], DR HOLLIS Swanson Consulting Unavailable WEST, DR [...] DR JOSE Dhaliwal Primary Care Unavailable DELIA BUSTOS Consulting Unavailable DELIA BUSTOS Attending Unavailable DELIA BUSTOS Admitting Unavailable MISC, DR REYNAGA Consulting Unavailable MISC, DR REYNAGA Attending Unavailable NADERER, DR JOSE Dhaliwal Primary Care Unavailable MISC, DR REYNAGA Admitting Unavailable KAUR HUIZAR Consulting Unavailable KAUR HUIZAR Attending Unavailable KAUR HUIZAR Admitting Unavailable NADEREKiki, DR JOSE Dhaliwal Primary [...] Unavailable Naderer Jose EATON Primary Care Provider JOSE BREWER Referring Unavailable NADERER, JOSE Primary Care Unavailable KOJO, MOHAMED F Admitting Unavailable KOJO, MOHAMED F Attending Unavailable KOJO, MOHAMED F Referring Unavailable NADERER, JOSE Primary Care Unavailable NADERER, JOSE Primary Care Unavailable KOJO, MOHAMED F Admitting Unavailable KOJO, BRISA F Attending Unavailable NADERERJOSE Primary Care Unavailable KOJO, BRISA F Attending Unavailable NADERER, JOSE Referring Unavailable NADERER, JOSE Primary Care Unavailable KOJO, BRISA F Attending Unavailable NADERER, JOSE Referring Unavailable NADERER, JOSE Primary Care Unavailable KOJO, BRISA F Attending Unavailable NADERERJOSE Referring Unavailable NADERER, JOSE Primary Care Unavailable KOJO, BRISA F Attending Unavailable NADERER, JOSE Referring Unavailable ARTEREKiki, JOSE Primary Care Unavailable MD Jose Brewer Primary Care Provider MD Andry Morales Attending Provider [phone] [place] Attending Unavailable [place], [facility] Attending Unavailable Naderer, Jose Primary Care Unavailable Asaad, Imad Admitting Unavailable Asaantonia, Imad Attending Unavailable Jose Brewer Primary Care Unavailable Asaad, Imad Admitting Unavailable Asaad, Imad Attending Unavailable Asaad, Imad Admitting Unavailable Asaad, Imad Attending Unavailable Jose Brewer Primary Care Unavailable Jose Brewer MD Primary Care Provider [phone] Jose Brewer MD Primary Care Provider Jose Brewer MD Primary Care Provider DELIA BUSTOS F Attending Unavailable SANDY BUSTOSMAKelly F Referring Unavailable DANIELLA, JOSE Attending Unavailable DANIELLA, JOSE Attending Unavailable DELIA BUSTOS F Attending Unavailable DANIELLA, JOSE Attending Unavailable DANIELLA, JOSE Attending Unavailable CHANELLE BENZ Attending Unavailable JOSE BREWER Referring Unavailable JOSE BREWER Primary Care Unavailable DOMINIC JAMISON Consulting Unavailable RICCO MUHAMID M Admitting Unavailable JANINA CHACKOHAMJOE M Attending Unavailable JOSE BREWER Primary Care Unavailable JAMES ANN Attending Unavailable Allergies Allergy Classification Reported Allergen(s) Allergy Type Date of Onset Reaction(s) Facility (1 source) Penicillin V Drug Allergy stomach upset [employer] Other (5 sources) Penicillin; Translations: [penicillin] Drug Allergy stomach upset [facility] Repository (5 sources) cefdinir; Translations: [CEFDINIR] Drug Allergy 09-15-19 [facility] Repository (20 sources) cefdinir Drug Allergy 10-08-19 Diarrhea [facility] (20 sources) Penicillins; Translations: [PENICILLINS] Drug Intolerance 05-05-20 21 Diarrhea, Nausea And Vomiting, GI intolerance, Unknown [facility] Healthcare Work Phone: (20 sources) Shellfish Propensity to adverse reactions 01-29-20 14 Rash [facility] (12 sources) SHELLFISH CONTAINING PRODUCTS; Translations: [SHELLFISH CONTAINING PRODUCTS] Propensity to adverse reactions to food (disorder) 01-29-20 14 Rash [facility] Repository (1 source) Penicillins Drug allergy (disorder) 06-17-20 [facility] Repository (9 sources) cefdinir Drug Allergy 10-08-19 24 Diarrhea [facility] (10 sources) Penicillins Propensity to adverse reactions to drug 05-05-20 21 Nausea And Vomiting [facility] Medications Current Medications Medication Drug Class(es) Dates Sig (Normalized) Sig (Original) acetaminophen 500 mg oral tablet (4 sources) Start: 02-12-2024 take 2 tablets by mouth every six hours as needed acetaminophen (acetaminophen Extra Strength) 500 mg tablet Take 2 tablets (1,000 mg total) by mouth every 6 (six) hours as needed (pain - pain rated 1-4). 30 tablet 02/12/2024 Active [id number] 200 actuat albuterol 0.09 mg/actuat metered dose inhaler (20 sources) beta2-Adrenergic Agonist Start: 11-18-2023 take 1 puff(s) by inhalation four times daily as needed Albuterol Sulfate (Proair Hfa) 90 mcg/actuation HFA aerosol inhaler Active 2 PUFF INHALATION Four times daily as needed November 18, 2023 12:00am Start: 05-13-2023 albuterol HFA 90 mcg/act inhaler 1 puff 05/13/2023 Active End: 10-30-2023 albuterol (ProAir RespiClick ) 90 mcg/act breath-activated inhaler every 4 (four) hours. 0 10/30/2023 Discontinued (Therapy completed) ascorbic acid 113 mg / copper gluconate [...] aspirin 81 mg delayed release oral tablet (11 sources) Platelet Aggregation Inhibitor, Nonsteroidal Anti-inflammatory Drug Start: 02-13-20 End: 11-02-19 25 take 1 tablet by mouth in the morning aspirin 81 mg Take 1 tablet (81 mg total) by mouth in the morning for 30 days. 30 tablet 02/13/2024 03/14/2024 Active take 1 tablet by mouth once melissa y Aspirin 81 81 MG 1 tablet Orally Once a day Active atorvastatin 40 mg oral tablet (20 sources) HMG-CoA Reductase Inhibitor Start: 11-18-2023 take 1 tablet by mouth once daily Atorvastatin 40 mg tablet Active 1 TAB PO Daily November 18, 2023 12:00am FreeTextSi tablet Orally Once a day; Note: Source Status: Taking; Provider: Edgar Dietrichselenefamilia ( ) Start: 11-18-2023 End: 10-30-2023 take 1 tablet by mouth once daily Atorvastatin Active 1 TAB PO Daily November 18, 2023 1:00am FreeTextSi tablet Orally Once a day; Note: Source Status: Taking; Provider: Gaye Dietrich ( ) Start: 04-01-2017 take 1 tablet by lynne th in the morning atorvastatin (LIPITOR) 40 mg tablet Take 1 tablet (40 mg total) by mouth in the morning. 04/01/2017 Active bumetanide 2 mg oral tablet (20 sources) Loop Diuretic Start: 10-19-2024 take 1 tablet by mouth twice daily Bumetanide 2 mg tablet Active 2 MG PO Twice daily 180 90 October 19, 2024 1:15pm Start: 03-22-2024 End: 10-19-2024 take 4 tablets by mouth once daily in the morning, then take 4 tablets by mouth once daily in the evening Bumetanide 0.5 mg tablet Discontinued 0 .ROUTE .COMPLEX 240 April 22, 2024 1:12pm October 19, 2024 1:17pm TAKE FOUR TABLETS BY MOUTH EVERY MORNING AND TAKE FOUR TABLETS BY MOUTH EVERY EVENING Start: 11-18-2023 End: 03-22-2024 take 2 mg by mouth twice daily Bumetanide Discontinued 2 MG PO Twice daily November 18, 2023 1:00am March 22, 2024 5:41pm Start: 10-14-2023 End: 03-22-2024 take 1 tablet by mouth twice daily Bumetanide 0.5 mg tablet Discontinued 2 MG PO Twice daily November 18, 2023 12:00am March 22, 2024 4:41pm Start: 10-23-2021 take 2 tablets by mo uth once daily Bumex 0.5 MG 2 tabs Orally Once a day for 90 days Oct, Active take 1 tablet by lynne th once daily bumetanide (Bumex) 0.5 MG tablet Take 0.5 mg by mouth 1 (one) time each day at the same time Active take 4 tablets by mo ut [...] by mouth twice daily at mealtime Carvedilol 3.125 mg tablet Active 3.125 MG PO Twice daily November 18, 2023 12:00am FreeTextSi tablet with food Orally Twice a [...] day Active chlorthalidone 25 mg oral tablet (14 sources) Thiazide-like Diuretic take 1 tablet by mouth once daily chlorthalidone (HYGROTON) 25 mg tablet Take 1 tablet (25 mg total) by mouth daily. Active clopidogrel 75 mg oral tablet (20 sources) P2Y12 Platelet Inhibitor Start: 11-18-19 take 1 tablet by mouth once daily Clopidogrel (Plavix) 75 mg tablet Active 1 TAB PO Daily November 18, 2023 12:00am FreeTextSi tablet Orally Once a day; Note: Source Status: Taking; Provider: Gaye Dietrich ( ) clotrimazole 10 mg/ml topical cream (20 sources) Azole Antifungal Start: 10-30-19 clotrimazole (Lotrimin) 1 % cream Indications: Skin candidiasis Apply topically 2 (two) times a day 60 g 2 10/30/2023 Active empagliflozin 25 mg oral tablet (20 sources) Sodium-Glucose Cotransporter 2 Inhibitor Start: 11-02-19 End: 05-15-20 take 1 tablet by mouth once daily empagliflozin (Jardiance) 25 MG Indications: Type 2 diabetes mellitus with hyperglycemia, with long-term current use of insulin (HCC) Take 1 tablet (25 mg) by mouth Daily 90 tablet 1 02/14/2025 05/15/2025 Active Start: 10-25-2023 End: 11-02-2024 take 1 tablet by mouth once daily empagliflozin (Jardiance) 10 MG Indications: Type 2 diabetes mellitus with hyperglycemia, with long-term current use of insulin (CMS/HCC) TAKE 1 TABLET BY MOUTH DAILY 90 tablet 1 09/17/2024 Active 15 ml ferric carboxymaltose 50 mg/ml injection (3 sources) Start: 01-22-2022 Injectafer 750 MG/15ML as directed Intravenous every 2 weeks for 14 days January, Active ferrous sulfate 325 mg oral tablet (20 sources) Start: 11-18-2023 take 1 tablet by mouth twice daily Ferrous Sulfate 325 mg (65 mg iron) tablet Active 325 MG PO Twice daily November 18, 2023 12:00am FreeTextSi tablet Orally twice a day; Note: Source Status: Taking; Provider: Gaye Dietrich take 1 tablet by mouth at mealti me ferrous sulfate 325 (65 Fe) MG tablet [...] Active take 1 tablet by mouth once melisas y Ferrous Sulfate 325 (65 Fe) MG [...] / vilanterol 0.025 mg/actuat dry powder inhaler (10 sources) Corticosteroid, beta2-Adrenergic Agonist take 1 puff(s) by inhalation in the morning fluticasone furoate-vilanteroL (BREO ELLIPTA) 100-25 mcg/dose blister with device Inhale 1 puff in the morning. Active glimepiride 2 mg oral tablet (20 sources) Sulfonylurea Start: End: take 1 tablet by mouth in the morning glimepiride (Amaryl) 2 MG tablet Indications: Type 2 diabetes mellitus with hyperglycemia, without long-term current use of insulin ([facility]) Take 1 tablet (2 mg) by mouth in the morning and 1 tablet (2 mg) before bedtime. 180 tablet 1 02/14/2025 05/15/2025 Active Start: 09-17-2024 End: 02-14-2025 take 1 tablet by mouth once daily at breakfast glimepiride (Amaryl) 4 MG tablet Indications: Type 2 diabetes mellitus with hyperglycemia, with long-term current use of insulin ([facility]/HCC) TAKE 1 TABLET BY MOUTH DAILY TAKE WITH BREAKFAST OR FIRST MAIN MEAL OF THE DAY 90 tablet 1 09/17/2024 02/14/2025 Discontinued (Dose adjustment) Start: 05-04-2024 End: 10-19-2024 take 1 tablet by mouth twice daily Glimepiride 4 mg tablet Discontinued 4 MG PO Twice daily May 03, 2024 11:00pm October 19, 2024 1:12pm Start: 11-25-2023 take 1 tablet by lynne th once daily before breakfast glimepiride (AMARYL) 4 mg tablet Take 1 tablet (4 mg total) by mouth every morning before breakfast. 11/25/2023 Active Start: 10-01-2022 End: 05-04-2024 Glimepiride 2 mg tablet Disc ontinued MG PO November 18, 2023 12:00am May 04, 2024 12:13pm FreeTextSi tablet with breakfast or the first main meal of the day Orally TWICE A DAY; Note: Source Status: Taking; Provider: Gaye Dietrich ( ) ipratropium bromide 0.021 mg/actuat metered dose nasal spray (6 sources) Anticholinergic take 2 spray(s) nasal route in the morning ipratropium (ATROVENT) 21 mcg (0.03 %) nasal spray Administer 2 sprays into each nostril in the morning and 2 sprays before bedtime. Active lisinopril 20 mg oral tablet (20 sources) Angiotensin Converting Enzyme Inhibitor Start: 02-24-20 take 1 tablet by mouth once daily lisinopril 20 MG tablet Indications: Benign essential hypertension Take 1 tablet (20 mg) by mouth Daily 30 tablet 5 02/23/2025 Active Start: 11-02-2024 take 1 tablet by lynne th once daily lisinopril 20 MG tablet Indications: Benign essential hypertension (CMS/HCC) Take 1 tablet (20 mg) by mouth Daily 30 tablet 5 11/02/2024 Active End: 11-02-2024 take 1 tablet by mouth once daily lisinopril 40 MG tablet Take 1 tablet by mouth Daily 11/02/2024 Discontinued (Reorder) take 1 tablet by lynne th every twenty-four hours Lisinopril 10 MG 1 tablet Orally Once a day Active Magnesium (4 sources) Magnesium 400 MG as directed Orally twice daily Active Magnesium Bisglycinate 100 MG (2 sources) Start: 07-10-2023 take 2 tablets by mouth once daily Magnesium Bisglycinate 100 MG 2 tab Orally daily for 30 days Jun, Active magnesium sulfate 0.0277 meq/ml / potassium sulfate 0.0374 meq/ml / sodium sulfate 0.257 meq/ml oral solution (6 sources) Start: 05-18-2021 take 177 mL by mouth twice daily SUPREP BOWEL PREP KIT 17.5-3.13-1.6 gram recon soln 177 ml,actual weight, 2 times daily, Oral 177 mL 05/18/2021 Active meclizine hydrochloride 25 mg oral tablet (20 sources) Antiemetic Start: 11-18-2023 take 1 tablet by mouth four times daily as needed Meclizine 25 mg tablet Active 25 MG PO Four times daily as needed November 18, 2023 12:00am FreeTextSi tablet as needed Orally FOUR TIMES A DAY PRN; Note: Source Status: Taking; Provider: Gaye Dietrich ( ) take 1 tablet by lynne th every twelve hours meclizine (Antivert) 25 MG tablet 25 mg every 12 (twelve) hours. Active mecobalamin (8 sources) Start: 10-19-2024 take 1 tablet by mouth once daily Mecobalamin (Vitamin B12) 500 mcg tablet,chewable Active 500 MCG PO Daily October 19, 2024 1:20pm Start: 10-19-2024 End: 10-19-2024 Mecobalamin (Vitamin B12) 1, 000 mcg tablet,chewable Discontinued 500 MCG PO Daily October 19, 2024 12:58pm October 19, 2024 1:20pm Start: 11-18-2023 End: 10-19-2024 take 1 tablet by mouth once daily Mecobalamin (Vitamin B12) 1,000 mcg tablet,chewable Discontinued 1000 MCG PO Daily November 18, 2023 12:00am October 19, 2024 12:59pm grmehjna-ptpk-QI-calcium &mins (THERAGRAN-M) 9 mg iron-400 mcg tablet (8 sources) lhqlgdab-raon-XW -calcium &mins (THERAGRAN-M) 9 mg iron-400 mcg tablet Take 1 tablet by mouth in the morning. Active ondansetron 4 mg disintegrating oral tablet (10 sources) Serotonin-3 Receptor Antagonist Star t: 08-2 0-20 24 take 1 tablet by mouth once daily as needed Ondansetron 4 mg tablet,disintegrating Active 4 MG PO Daily as needed May 03, 2024 11:00pm Start: 03-09-2024 ondansetron OD T (ZOFRAN ODT) 4 mg disintegrating tablet Indications: Gastroenteritis Dissolve 1 tablet (4 mg total) on tongue 3 (three) times a day as needed for nausea for up to 3 doses. 3 tablet 03/09/2024 Active pantoprazole 40 mg delayed release oral tablet (20 sources) Proton Pump Inhibitor Start: 05-03-2025 take 1 tablet by mouth before mealtime pantoprazole (ProtoNix) 40 MG EC tablet Indications: Gastroesophageal reflux disease without esophagitis Take 1 tablet (40 mg) by mouth in the morning. Take before meals. 90 tablet 3 05/03/2025 Active Start: 05-03-2025 take 1 tablet by lynne th before mealtime pantoprazole (ProtoNix) 40 MG EC tablet Indications: Gastroesophageal reflux disease without esophagitis Take 1 tablet (40 mg) by mouth in the morning. Take before meals. 90 tablet 3 05/03/2025 Active Start: 05-08-2021 End: 05-03-2025 take 1 tablet by mouth once daily Pantoprazole 40 mg tablet,delayed release (DR/EC) Active 1 TAB PO Daily November 18, 2023 12:00am FreeTextSi tablet Orally Once a day; Note: Source Status: Taking; Provider: Gaye Dietrich ( ) pioglitazone 15 mg oral tablet (14 sources) Peroxisome Proliferator Receptor alpha Agonist, Peroxisome [...] (20 sources) Dipeptidyl Peptidase 4 Inhibitor Start: 12-06-2024 End: 08-13-2025 take 1 tablet by mouth once daily SITagliptin (Januvia) 50 MG tablet Indications: Type 2 diabetes mellitus with hyperglycemia, without long-term current use of insulin (HCC) Take 1 tablet (50 mg) by mouth Daily 90 tablet 1 02/14/2025 08/13/2025 Active Start: 06-17-2024 take 1 tablet by lynne th once daily Sitagliptin 50 mg tablet Active 50 MG PO Daily June 16, 2024 11:00pm Start: 11-18-2023 End: 05-04-2024 take 1 tablet by mouth once daily Sitagliptin Phosphate 50 mg tablet Discontinued 50 MG PO Daily November 18, 2023 12:00am May 04, 2024 12:15pm FreeTextSi tablet Orally Once a day; Note: Source Status: Taking; Provider: Gaye Dietrich ( ) spironolactone 50 mg oral tablet (20 sources) Aldosterone Antagonist take 1 tablet by mouth once daily spironolactone (Aldactone) 50 MG tablet Take 1 tablet by mouth Daily Active take 1 tablet by lynne every twenty-four hours Spironolactone 25 MG 1 tablet Orally Onc e a day Not-Taking tamsulosin hydrochloride 0.4 mg oral capsule (20 sources) alpha-Adrenergic Estuardo Start: 10-31-2023 End: 09-14-2024 take 1 capsule by mouth once daily Tamsulosin 0.4 mg capsule Active 0.4 MG PO Daily September 14, 2024 6:01pm Start: 03-07-2023 take 1 capsule by [facility] every twenty-four hours Flomax 0.4 MG 1 capsule Orally Once a day for 30 days Feb, Active take 1 capsule by [facility] every twenty-four hours in the morning tamsulosin (Flomax) 0.4 MG 24 hr capsule Take 0.4 mg by mouth in the morning. Active Trelegy Ellipta 100-62.5-25 MCG/INH (2 sources) take 1 puff(s) by inhalation once daily Trelegy Ellipta 100-62.5-25 MCG/INH 1 puff Inhalation Once a day Active vancomycin 125 mg oral capsule (8 sources) Glycopeptide Antibacterial Start: 01-15-20 vancomycin (Vancocin) 125 MG capsule Take 125 mg by mouth in the morning and 125 mg at noon and 125 mg in the evening and 125 mg before bedtime. 01/14/2025 Active Vit C,J-Sc-Qgpnb-Lutein -Zeaxan (Preservision Areds-2) 250-90-40-1 mg capsule (6 sources) Start: 11-18-19 24 Vit C,W-Cv-Pjqmx-Lutein -Zeaxan (Preservision Areds-2) 250-90-40-1 mg capsule Active 1 TAB PO Twice daily November 18, 2023 12:00am Start: 11-18-2023 Vit C,E-Zn-Glassblower il-Jnxdmp-Hmqjiv (Preservision Areds-2) 250-90-40-1 mg capsule Active 1 TAB PO Twice daily November 18, 2023 1:00am vitamin b12 1 mg oral tablet (20 sources) Vitamin B12 Start: 05-09-2021 take 1 tablet by mouth once daily cyanocobalamin 1000 MCG tablet Take 1 tablet (1,000 mcg total) by mouth daily. 30 tablet 05/09/2021 Active Vitamin B12 1000 MCG (9 sources) take 1 tablet by mouth once daily Vitamin B12 1000 MCG 1 tablet Orally Once a day Active Completed/Discontinued Medications Medication Drug Class(es) Dates Sig (Normalized) Sig (Original) albuterol 0.833 mg/ml / ipratropium bromide 0.167 mg/ml inhalation solution (15 sources) Anticholinergic, beta2-Adrenergic Agonist Start: 11-18-2023 End: 10-19-2024 take 1 mL by inhalation four times daily as needed Ipratropium-Albuter ol 0.5 mg-3 mg(2.5 mg base)/3 mL solution for nebulization Discontinued 3 ML INHALATION Four times daily as needed November 18, 2023 12:00am October 19, 2024 1:11pm Albuterol-Ipratr opium Active 120 actuat formoterol fumarate 0.0048 mg/actuat / glycopyrrolate 0.009 mg/actuat metered dose inhaler (20 sources) beta2-Adrenergic Agonist Start: 11-18-2023 End: 10-19-2024 Glycopyrrolate-Formoterol (Bevespi Aerosphere) 9-4.8 mcg HFA aerosol inhaler Discontinued 2 PUFF INHALATION Twice daily November 18, 2023 12:00am October 19, 2024 1:07pm take 2 puff(s) by in halation in the morning Glycopyrrolate-Formoterol 9-4.8 MCG/ACT aerosol Inhale 2 puffs in the morning and 2 puffs before bedtime. Active hydrOXYzine hydrochloride 25 mg oral tablet (20 sources) Antihistamine Start: 11-18-2023 End: 10-19-2024 take 1 tablet by mouth every six hours as needed Hydroxyzine Hcl 25 mg tablet Discontinued 25 MG PO Every 6 hours as needed November 18, 2023 12:00am October 19, 2024 1:11pm FreeTextSi tablet as needed Orally every 6 hrs; Note: Source Status: Taking; Provider: Gaye Dietrich ( ) take 1 tablet by lynne th three times daily as needed hydrOXYzine (ATARAX) 25 mg tablet Take 1 tablet (25 mg total) by mouth 3 (three) times a day as needed for itching. Active magnesium oxide 400 mg oral tablet (20 sources) Start: 10-19-2024 End: 10-19-2024 take 1 tablet by mouth twice daily Magnesium Oxide 400 mg (241.3 mg magnesium) tablet Active 400 MG PO Twice daily October 19, 2024 1:19pm Start: 11-18-2023 End: 10-19-2024 take 1 tablet by mouth once daily Magnesium Oxide 400 mg (241.3 mg magnesium) tablet Discontinued 400 MG PO Daily October 19, 2024 1:10pm October 19, 2024 1:19pm Start: 10-14-2023 take 1 tablet by lynne th once daily magnesium oxide 420 MG tablet Take 1 tablet by mouth Daily 10/14/2023 Active End: 10-30-2023 take 1 tablet by mouth in the morning magnesium oxide (Mag-Ox) 400 MG tablet Take 400 mg by mouth in the morning. 0 10/30/2023 Discontinued (Therapy completed) take 1 tablet by lynne th every twenty-four hours Magnesium Oxide 420 MG 1 tablet as needed Orally Once a day Not-Taking methylPREDNISolone (3 sources) Corticosteroid Start: 05-12-2023 End: 10-30-2023 methylPREDNISolone (Medrol Dospak) 4 MG tablets Indications: Right hip pain Follow schedule on package instructions 1 each 0 05/12/2023 10/30/2023 Discontinued (Other) Start: 05-12-2023 methylPREDNISo lone (Medrol Dospak) 4 MG tablets Indications: Right hip pain Follow schedule on package instructions 1 each 0 05/12/2023 Active Problems Active Problems Problem Classification Problem Date Documented Da te Episodic/Chronic Abdominal pain (3 sources) Right lower quadrant pain; Translations: [Unspecified abdominal pain] Onset: 5 Episodic Administrative/social admission (5 sources) Dietary counseling and surveillance; Translations: [Patient encounter status] Onset: 3 10-18-2024 Episodic Chronic kidney disease (20 sources) Chronic renal failure; Translations: [Chronic kidney disease, unspecified] Onset: 1 10-30-2023 Chronic Chronic kidney disease (11 sources) Chronic kidney disease; Translations: [CHRONIC KIDNEY DISEASE STAGE 3B] Onset: 1 Resolved: 2 Chronic obstructive pulmonary disease and bronchiectasis (20 sources) Chronic obstructive lung disease; Translations: [Chronic obstructive pulmonary disease, unspecified] Onset: 4 10-30-2023 Chronic Congestive heart failure; nonhypertensive (20 sources) Chronic diastolic (congestive) heart failure; Translations: [Chronic heart failure co-occurrent with normal ejection fraction] Onset: 2 Chronic Coronary atherosclerosis and other heart disease (20 sources) Coronary arteriosclerosis; Translations: [Atherosclerotic heart disease of tetlin coronary artery without angina pectoris] Onset: 4 10-30-2023 Chronic Deficiency and other anemia (17 sources) Anemia, unspecified; Translations: [Anemia, unspecified] Onset: 2 Resolved: 2 Episodic Deficiency and other anemia (16 sources) Anemia; Translations: [Anemia, unspecified] Onset: 1 11-14-2023 Episodic Diabetes mellitus with complications (20 sources) Type 2 diabetes mellitus with other diabetic kidney complication; Translations: [Type 2 diabetes mellitus] Onset: 7 Chronic Digestive congenital anomalies (1 source) Other congenital malformations of gallbladder; Translations: [Other congenital malformations of gallbladder] Onset: 5 Chronic Disorders of lipid metabolism (20 sources) Mixed hyperlipidemia; Translations: [Dyslipidemia] Onset: 3 10-30-2023 Chronic Esophageal disorders (20 sources) Gastroesophageal reflux disease without esophagitis; Translations: [Gastro-esophageal reflux disease without esophagitis] Onset: 4 10-30-2023 Chronic Essential hypertension (20 sources) Essential hypertension; Translations: [Essential (primary) hypertension] Onset: 7 Resolved: 2 Chronic Fluid and electrolyte disorders (13 sources) Hypervolemia; Translations: [Fluid overload, unspecified] Onset: 4 11-14-2023 Episodic Genitourinary symptoms and ill-defined conditions (1 source) Other retention of urine; Translations: [Other retention of urine] Onset: 5 Episodic Heart valve disorders (20 sources) Nonrheumatic aortic (valve) stenosis; Translations: [Aortic stenosis, non-rheumatic ] Onset: 2 Chronic Hyperplasia of prostate (18 sources) Lower urinary tract symptoms due to benign prostatic hypertrophy; Translations: [Benign prostatic hyperplasia with lower urinary tract symptoms] Chronic Hypertension with complications and secondary hypertension (5 sources) Hypertensive chronic kidney disease with stage 1 through stage 4 chronic kidney disease, or unspecified chronic kidney disease; Translations: [HTN CKD W/STAGE 1-4 CKD/UNS CKD] Onset: 2 Chronic Nutritional deficiencies (4 sources) Vitamin D deficiency; Translations: [Vitamin D deficiency, unspecified] 10-18-2024 Chronic Occlusion or stenosis of precerebral arteries (20 sources) Occlusion and stenosis of left carotid artery; Translations: [Occlusion and stenosis of right carotid artery] Onset: 4 03-15-2024 Chronic Osteoarthritis (20 sources) Bilateral shoulder osteoarthritis; Translations: [Primary osteoarthritis, right shoulder] Onset: 4 10-30-2023 Chronic Other connective tissue disease (1 source) Pain in lower limb Onset: 4 Episodic Other diseases of kidney and ureters (3 sources) Acquired obstructive defect of renal pelvis; Translations: [Other obstructive and reflux uropathy] Episodic Other diseases of kidney and ureters (2 sources) Other obstructive and reflux uropathy Episodic Other ear and sense organ disorders (2 sources) Bilateral hearing loss 08-20-2024 Chronic Other ear and sense organ disorders (10 sources) Chronic eczema of external auditory canal; Translations: [Other otitis externa, bilateral] Onset: 9 10-15-2018 Chronic Other ear and sense organ disorders (2 sources) Impacted cerumen in left ear; Translations: [Impacted cerumen, left ear] 08-25-2024 Episodic Other endocrine disorders (6 sources) Hyperparathyroidism; Translations: [Hyperparathyroidism, unspecified] 11-18-2023 Chronic Other endocrine disorders (6 sources) Hyperparathyroidism, unspecified; Translations: [Hyperparathyroidism, unspecified] 05-04-2024 Chronic Other endocrine disorders (1 source) Hypoglycemia, unspecified; Translations: [Hypoglycemia, unspecified] Onset: 5 Chronic Other gastrointestinal disorders (1 source) Other ascites; Translations: [Other ascites] Onset: 5 Episodic Other liver diseases (20 sources) Cirrhosis of liver; Translations: [Unspecified cirrhosis of liver] Onset: 4 06-17-2024 Chronic Other liver diseases (6 sources) Unspecified cirrhosis of liver; Translations: [Cirrhosis of liver without mention of alcohol] Onset: 4 06-17-2024 Chronic Other liver diseases (1 source) Fatty (change of) liver, not elsewhere classified; Translations: [Fatty (change of) liver, not elsewhere classified] Onset: 4 Chronic Other nervous system disorders (10 sources) Peripheral nerve disease ; Translations: [Polyneuropathy, unspecified] Onset: 1 05-05-2021 Chronic Other nervous system disorders (1 source) Other acute postprocedural pain; Translations: [Other acute postprocedural pain] Onset: 5 Episodic Other nutritional; endocrine; and metabolic disorders (13 sources) Hypocalcemia; Translations: [Hypocalcemia] 11-14-2023 Chronic Other nutritional; endocrine; and metabolic disorders (12 sources) Hypocalcemia; Translations: [Hypocalcemia] Onset: 2 Resolved: 2 Chronic Other nutritional; endocrine; and metabolic disorders (10 sources) Hypomagnesemia; Translations: [Hypomagnesemia] 11-14-2023 Chronic Other nutritional; endocrine; and metabolic disorders (10 sources) Hypomagnesemia; Translations: [Disorders of magnesium metabolism] Onset: 3 Chronic Other nutritional; endocrine; and metabolic disorders (6 sources) Hyperuricemia; Translations: [Hyperuricemia without signs of inflammatory arthritis and tophaceous disease] 11-18-2023 Episodic Other nutritional; endocrine; and metabolic disorders (6 sources) Hyperuricemia without signs of inflammatory arthritis and tophaceous disease; Translations: [Other abnormal blood chemistry] 05-04-2024 Episodic Peripheral and visceral atherosclerosis (20 sources) Peripheral vascular disease; Translations: [Peripheral vascular disease, unspecified] Onset: 1 10-30-2023 Chronic Residual codes; unclassified (7 sources) Localized edema; Translations: [LOCALIZED EDEMA] Onset: 2 Resolved: 2 Episodic Residual codes; unclassified (6 sources) Other specified postprocedural states; Translations: [Other postprocedural status] Onset: 4 05-04-2024 Episodic Unclassified (1 source) Carotid stenosis, asymptomatic, left [I65.22] Onset: 4 Unclassified (1 source) Carotid Artery Disease Onset: 4 Unclassified (1 source) Bilateral Carotid Bruits Onset: 4 Unclassified (1 source) EMS Onset: 5 Unclassified (1 source) Low Blood Sugar - Symptomatic Onset: 5 Past or Other Problems Problem Classification Problem Date Documented Da te Episodic/Chronic Cardiac dysrhythmias (4 sources) Palpitations; Translations: [PALPITATIONS] Onset: 3 Episodic Deficiency and other anemia (10 sources) Iron deficiency anemia; Translations: [Iron deficiency anemia, unspecified] Onset: 1 05-06-2021 Episodic Gastrointestinal hemorrhage (10 sources) Melena; Translations: [Melena] Onset: 1 05-06-2021 Episodic Intestinal infection (10 sources) Clostridium difficile colitis; Translations: [Enterocolitis due to Clostridium difficile, not specified as recurrent] Onset: 5 Resolved: 5 01-19-2025 Episodic Mood disorders (4 sources) Mood disorders Onset: 4 02-11-2024 Mycoses (20 sources) Candidiasis of skin; Translations: [Candidiasis of skin and nail] Onset: 4 Resolved: 5 10-30-2023 Episodic Noninfectious gastroenteritis (20 sources) Gastroenteritis; Translations: [Noninfective gastroenteritis and colitis, unspecified] Onset: 4 Resolved: 4 04-29-2024 Episodic Nutritional deficiencies (20 sources) Iron deficiency; Translations: [Cobalamin deficiency] Onset: 1 Resolved: 2 Episodic Other circulatory disease (1 source) Other specified symptoms and signs involving the circulatory and respiratory systems; Translations: [Other specified symptoms and signs involving the circulatory and respiratory systems] Onset: 1 Episodic Other circulatory disease (11 sources) Carotid bruit; Translations: [Other specified symptoms and signs involving the circulatory and respiratory systems] Onset: 1 05-05-2021 Episodic Other diseases of veins and lymphatics (20 sources) Venous insufficiency of leg; Translations: [Venous insufficiency (chronic) (peripheral)] Onset: 0 10-30-2023 Episodic Other ear and sense organ disorders (20 sources) Bilateral hearing loss; Translations: [Impacted cerumen, bilateral] Onset: 4 08-20-2024 Episodic Other ear and sense organ disorders (10 sources) Impacted cerumen of bilateral ears; Translations: [Impacted cerumen, bilateral] Onset: 8 10-15-2017 Episodic Other gastrointestinal disorders (1 source) Diarrhea, unspecified; Translations: [Diarrhea, unspecified] Onset: 5 Episodic Phlebitis; thrombophlebitis and thromboembolism (8 sources) Phlebitis and thrombophlebitis of superficial vessels of left lower extremity; Translations: [Phlebitis and thrombophlebitis of superficial vessels of right lower extremity] Onset: 2 Episodic Syncope (11 sources) Syncope; Translations: [Syncope and collapse] Onset: 1 05-06-2021 Episodic Varicose veins of lower extremity (4 sources) Varicose veins of bilateral lower extremities with pain; Translations: [VARICOSE VNS REYNA LOW EXTREM W/PAIN] Onset: 2 Episodic Results Test Name Value Interpretation Reference Range Facility BEDSIDE GLUCOSEon 05-13-2025 Glucose [Mass/Vol] 176 mg/dL High 65-99 [facility] Comment on above: Performed By: #### B EDG ####[facility] ([address] [place] [address] VIR Glucose [Mass/Vol] 105 mg/dL High 65-99 [facility] Comment on above: Performed By: #### B EDG ####[facility] ([address] [address] VIR CBC WITH AUTO DIFFERENTIALon 05-13-2025 BASOPHILS ABSOLUTE COUNT (10*3/UL) BY AUTOMATED COUNT 0.1 10*3/uL Normal 0.0-0.2 [facility] Comment on above: Performed By: #### C BCA #### [facility] ([address] [address] VIR BASOPHILS RELATIVE PERCENT BY AUTOMATED COUNT 1.1 % Normal [facility] Comment on above: Performed By: #### C BCA #### [facility] ([address] [address] VIR CELLAVISION DIFFERENTIAL TYPE AUTOMATED DIFFERENTIAL Normal [facility] Comment on above: Performed By: #### C BCA #### [facility] ([address] [address] VIR Eosinophils (Bld) [#/Vol] 0.4 10*3/uL Normal 0.0-0.4 [facility] Comment on above: Performed By: #### C BCA #### [facility] ([address] [address] VIR EOSINOPHILS RELATIVE PERCENT BY AUTOMATED COUNT 6.3 % Normal [facility] Comment on above: Performed By: #### C BCA #### [facility] ([address] [address] VIR Erythrocyte distribution width (RBC) [Ratio] 15.1 % High 11.5-15 [facility] Comment on above: Performed By: #### C BCA #### [facility] ([address] [address] VIR Hematocrit (Bld) [Volume fraction] 33.5 % Low 39-50 [facility] Comment on above: Performed By: #### C BCA #### [facility] ([address] [address] VIR Hemoglobin (Bld) [Mass/Vol] 11.5 g/dL Low 13-17 [facility] Comment on above: Performed By: #### C BCA #### [facility] ([address] [address] VIR LYMPHOCYTES ABSOLUTE COUNT (10*3/UL) BY AUTOMATED COUNT 1.0 10*3/uL Normal 1.0-3.5 [facility] Comment on above: Performed By: #### C BCA #### [facility] ([address] [address] VIR LYMPHOCYTES RELATIVE PERCENT BY AUTOMATED COUNT 14.1 % Normal [facility] Comment on above: Performed By: #### C BCA #### [facility] ([address] [address] VIR MCH (RBC) [Entitic mass] 35.2 pg High 27-34 [facility] Comment on above: Performed By: #### C BCA #### [facility] ([address] [address] VIR MCHC (RBC) [Mass/Vol] 34.2 g/dL Normal 32-36 [facility] Comment on above: Performed By: #### C BCA #### [facility] ([address] [address] VIR MCV (RBC) [Entitic vol] 103 fL High 80-100 [facility] Comment on above: Performed By: #### C BCA #### [facility] ([address] [address] VIR MONOCYTES ABSOLUTE COUNT (10*3/UL) BY AUTOMATED COUNT 0.6 10*3/uL Normal 0.0-0.9 [facility] Comment on above: Performed By: #### C BCA #### [facility] ([address] [address] VIR MONOCYTES RELATIVE PERCENT BY AUTOMATED COUNT 8.5 % Normal [facility] Comment on above: Performed By: #### C BCA #### [facility] ([address] [address] VIR NEUTROPHILS ABSOLUTE COUNT BY AUTOMATED COUNT 4.9 10*3/uL Normal 1.5-6.6 [facility] Comment on above: Performed By: #### C BCA #### [facility] ([address] [address] VIR NEUTROPHILS RELATIVE PERCENT BY AUTOMATED COUNT 70.0 % Normal [facility] Comment on above: Performed By: #### C BCA #### [facility] ([address] [address] VIR Platelet mean volume (Bld) [Entitic vol] 8.9 fL Normal 7-12 [facility] Comment on above: Performed By: #### C BCA #### [facility] ([address] [address] VIR Platelets (Bld) [#/Vol] 138 10*3/uL Low 150-450 [facility] Comment on above: Performed By: #### C BCA #### [facility] ([address] [address] VIR RBC COUNT 3.26 X10E12/L Low 4.1-5.7 [facility] Comment on above: Performed By: #### C BCA #### [facility] ([address] [address] VIR WBC (Bld) [#/Vol] 7.0 10*3/uL Normal 4-11 [facility] Comment on above: Performed By: #### C BCA #### [facility] ([place] [address] [place] [address] VIR COMPREHENSIVE METABOLIC PANE Deacon 05-13-2025 Albumin [Mass/Vol] 2.8 g/dL Low 3.2-5.3 [facility] Comment on above: Performed By: #### C MP ####[facility] ([place] [address] [place] [address] VIR ALP [Catalytic activity/Vol] 171 U/L High 39-130 [facility] Comment on above: Performed By: #### C MP ####[facility] ([place] [address] [place] [address] VIR ALT [Catalytic activity/Vol] 24 U/L Normal <=40 [facility] Comment on above: Performed By: #### C MP ####[facility] ([place] [address] [place] [address] VIR Anion gap [Moles/Vol] 8 mmol/L Normal 5-15 [facility] Comment on above: Performed By: #### C MP ####[facility] ([place] [address] [place] [address] VIR AST [Catalytic activity/Vol] 35 U/L Normal <=41 [facility] Comment on above: Performed By: #### C MP ####[facility] ([place] [address] [place] [address] VIR Bilirubin [Mass/Vol] 1.2 mg/dL Normal 0.3-1.2 [facility] Comment on above: Performed By: #### C MP ####[facility] ([place] [address] [place] [address] VIR Calcium [Mass/Vol] 8.3 mg/dL Low 8.5-10.5 [facility] Comment on above: Performed By: #### C MP ####[facility] ([place] [address] [place] [address] VIR Chloride [Moles/Vol] 103 mmol/L Normal 98-109 [facility] Comment on above: Performed By: #### C MP ####[facility] ([facility])[address] [place] [address] [place] [address] VIR CO2 [Moles/Vol] 26 mmol/L Normal 22-32 [facility] Comment on above: Performed By: #### C MP ####[facility] ([address] [place] [address] VIR Creatinine [Mass/Vol] 1.24 mg/dL High 0.70-1.20 [facility] Comment on above: Result Comment: METH OD TRACEABLE TO IDMS STANDARD Performed By: #### C MP ####[facility] ([address] [place] [address] VIR GFR/1.73 sq M.predicted among non-blacks MDRD (S/P/Bld) [Vol rate/Area] 56 mL/min/{1.73_m2} Low >=60 [facility] Comment on above: Result Comment: eGFR not reported due to non-numeric value for Creatinine. Reported eGFR is based on the CKD-EPI 1 equation that does not use a race coefficient. Performed By: #### C MP ####[facility] ([address] [place] [address] VIR Glucose [Mass/Vol] 95 mg/dL Normal 65-99 [facility] Comment on above: Performed By: #### C MP ####[facility] ([address] [place] [address] VIR Potassium [Moles/Vol] 4.3 mmol/L Normal 3.5-5.0 [facility] Comment on above: Performed By: #### C MP ####[facility] ([address] [place] [address] VIR Protein [Mass/Vol] 6.5 g/dL Normal 6.0-8.0 [facility] Comment on above: Performed By: #### C MP ####[facility] ([address] [place] [address] VIR Sodium [Moles/Vol] 137 mmol/L Normal 134-146 [facility] Comment on above: Performed By: #### C MP ####[facility] ([address] [place] [address] VIR Urea nitrogen [Mass/Vol] 24 mg/dL Normal 5-27 [facility] Comment on above: Performed By: #### C MP ####[facility] ([address] [place] [address] VIR MAGNESIUMon 05-13-2025 Magnesium [Mass/Vol] 2.5 mg/dL Normal 1.8-2.6 [facility] Comment on above: Performed By: #### C BCA #### [facility] ([address] [place] [address] VIR BEDSIDE GLUCOSEon 05-12-2025 Glucose [Mass/Vol] 84 mg/dL Normal 65-99 [facility] Comment on above: Performed By: #### C BCA #### [facility] ([address] [place] [address] VIR Glucose [Mass/Vol] 93 mg/dL Normal 65-99 [facility] Comment on above: Performed By: #### C BCA #### [facility] ([address] [place] [address] VIR Glucose [Mass/Vol] 89 mg/dL Normal 65-99 [facility] Comment on above: Performed By: #### C BCA #### [facility] ([address] [place] [address] VIR Glucose [Mass/Vol] 94 mg/dL Normal 65-99 [facility] Comment on above: Performed By: #### C MP #### [facility] ([address] [address] VIR CBC WITH AUTO DIFFERENTIALon 05-12-2025 BASOPHILS ABSOLUTE COUNT (10*3/UL) BY AUTOMATED COUNT 0.1 10*3/uL Normal 0.0-0.2 [facility] Comment on above: Performed By: #### C MP #### [facility] ([address] [address] VIR BASOPHILS RELATIVE PERCENT BY AUTOMATED COUNT 1.2 % Normal [facility] Comment on above: Performed By: #### C MP #### [facility] ([address] [address] VIR CELLAVISION DIFFERENTIAL TYPE AUTOMATED DIFFERENTIAL Normal [facility] Comment on above: Performed By: #### C MP #### [facility] ([address] [address] VIR Eosinophils (Bld) [#/Vol] 0.5 10*3/uL High 0.0-0.4 [facility] Comment on above: Performed By: #### C MP #### [facility] ([address] [address] VIR EOSINOPHILS RELATIVE PERCENT BY AUTOMATED COUNT 7.2 % Normal [facility] Comment on above: Performed By: #### C MP #### [facility] ([address] [address] VIR Erythrocyte distribution width (RBC) [Ratio] 15.2 % High 11.5-15 [facility] Comment on above: Performed By: #### C MP #### [facility] ([address] [address] VIR Hematocrit (Bld) [Volume fraction] 33.5 % Low 39-50 [facility] Comment on above: Performed By: #### C MP #### [facility] ([address] [address] VIR Hemoglobin (Bld) [Mass/Vol] 11.5 g/dL Low 13-17 [facility] Comment on above: Performed By: #### C MP #### [facility] ([address] [address] VIR LYMPHOCYTES ABSOLUTE COUNT (10*3/UL) BY AUTOMATED COUNT 1.4 10*3/uL Normal 1.0-3.5 [facility] Comment on above: Performed By: #### C MP #### [facility] ([address] [address] VIR LYMPHOCYTES RELATIVE PERCENT BY AUTOMATED COUNT 21.0 % Normal [facility] Comment on above: Performed By: #### C MP #### [facility] ([address] [address] VIR MCH (RBC) [Entitic mass] 35.1 pg High 27-34 [facility] Comment on above: Performed By: #### C MP #### [facility] ([address] [address] VIR MCHC (RBC) [Mass/Vol] 34.4 g/dL Normal 32-36 [facility] Comment on above: Performed By: #### C MP #### [facility] ([address] [address] VIR MCV (RBC) [Entitic vol] 102 fL High 80-100 [facility] Comment on above: Performed By: #### C MP #### [facility] ([address] [address] VIR MONOCYTES ABSOLUTE COUNT (10*3/UL) BY AUTOMATED COUNT 0.6 10*3/uL Normal 0.0-0.9 [facility] Comment on above: Performed By: #### C MP #### [facility] ([address] [place] [address] VIR MONOCYTES RELATIVE PERCENT BY AUTOMATED COUNT 8.9 % Normal [facility] Comment on above: Performed By: #### C MP #### [facility] ([address] [place] [address] VIR NEUTROPHILS ABSOLUTE COUNT BY AUTOMATED COUNT 4.0 10*3/uL Normal 1.5-6.6 [facility] Comment on above: Performed By: #### C MP #### [facility] ([address] [place] [address] VIR NEUTROPHILS RELATIVE PERCENT BY AUTOMATED COUNT 61.7 % Normal [facility] Comment on above: Performed By: #### C MP #### [facility] ([address] [place] [address] VIR Platelet mean volume (Bld) [Entitic vol] 8.6 fL Normal 7-12 [facility] Comment on above: Performed By: #### C MP #### [facility] ([address] [place] [address] VIR Platelets (Bld) [#/Vol] 119 10*3/uL Low 150-450 [facility] Comment on above: Performed By: #### C MP #### [facility] ([address] [place] [address] VIR RBC COUNT 3.29 X10E12/L Low 4.1-5.7 [facility] Comment on above: Performed By: #### C MP #### [facility] ([address] [place] [address] VIR WBC (Bld) [#/Vol] 6.4 10*3/uL Normal 4-11 [facility] Comment on above: Performed By: #### C MP #### [facility] ([address] [place] [address] VIR COMPREHENSIVE METABOLIC PANE Deacon 05-12-2025 Albumin [Mass/Vol] 3.1 g/dL Low 3.2-5.3 [facility] Comment on above: Performed By: #### C BCA #### [facility] ([place] [address] [place] [address] VIR ALP [Catalytic activity/Vol] 176 U/L High 39-130 [facility] Comment on above: Performed By: #### C BCA #### [facility] ([place] [address] [place] [address] VIR ALT [Catalytic activity/Vol] 26 U/L Normal <=40 [facility] Comment on above: Performed By: #### C BCA #### [facility] ([place] [address] [place] [address] VIR Anion gap [Moles/Vol] 9 mmol/L Normal 5-15 [facility] Comment on above: Performed By: #### C BCA #### [facility] ([place] [address] [place] [address] VIR AST [Catalytic activity/Vol] 39 U/L Normal <=41 [facility] Comment on above: Performed By: #### C BCA #### [facility] ([place] [address] [place] [address] VIR Bilirubin [Mass/Vol] 1.1 mg/dL Normal 0.3-1.2 [facility] Comment on above: Performed By: #### C BCA #### [facility] ([place] [address] [place] [address] VIR Calcium [Mass/Vol] 8.2 mg/dL Low 8.5-10.5 [facility] Comment on above: Performed By: #### C BCA #### [facility] ([place] [address] [place] [address] VIR Chloride [Moles/Vol] 108 mmol/L Normal 98-109 [facility] Comment on above: Performed By: #### C BCA #### [facility] ([address] [place] [address] VIR CO2 [Moles/Vol] 23 mmol/L Normal 22-32 [facility] Comment on above: Performed By: #### C BCA #### [facility] ([address] [place] [address] VIR Creatinine [Mass/Vol] 1.18 mg/dL Normal 0.70-1.20 [facility] Comment on above: Result Comment: METH OD TRACEABLE TO IDMS STANDARD Performed By: #### C BCA #### [facility] ([address] [address] VIR GFR/1.73 sq M.predicted among non-blacks MDRD (S/P/Bld) [Vol rate/Area] 59 mL/min/{1.73_m2} Low >=60 [facility] Comment on above: Result Comment: eGFR not reported due to non-numeric value for Creatinine. EGFR not calculated due to patient's gender not being defined. Reported eGFR is based on the CKD-EPI 2021 equation that does not use a race coefficient. Performed By: #### C BCA #### [facility] ([address] [place] [address] VIR Glucose [Mass/Vol] 82 mg/dL Normal 65-99 [facility] Comment on above: Performed By: #### C BCA #### [facility] ([address] [place] [address] VIR Potassium [Moles/Vol] 3.8 mmol/L Normal 3.5-5.0 [facility] Comment on above: Performed By: #### C BCA #### [facility] ([address] [place] [address] VIR Protein [Mass/Vol] 6.5 g/dL Normal 6.0-8.0 [facility] Comment on above: Performed By: #### C BCA #### [facility] ([address] [address] VIR Sodium [Moles/Vol] 140 mmol/L Normal 134-146 [facility] Comment on above: Performed By: #### C BCA #### [facility] ([address] [address] VIR Urea nitrogen [Mass/Vol] 25 mg/dL Normal 5-27 [facility] Comment on above: Performed By: #### C BCA #### [facility] ([address] [address] VIR LACTATE W/ REFLEXon 05-12-20 25 LACTATE W/REFLEX 1.4 mmol/L Normal 0.4-2.0 [facility] Comment on above: Order Comment: Resul t did not trigger repeat Lactate,re-order if needed. Performed By: #### C BCA #### [facility] ([address] [address] VIR MAGNESIUMon 05-12-2025 Magnesium [Mass/Vol] 1.5 mg/dL Low 1.8-2.6 [facility] Comment on above: Performed By: #### C BCA #### [address] [address] VIR NM HEPATOBILIARY SYS IMAGING W PHARMACOLOGIC AGENTon 05-12-2025 NM HEPATOBILIARY SYS IMAGING W PHARMACOLOGIC AGENT NM HEPATOBILIARY SYS IMAGING W PHARMACOLOGIC AGENT CLINICAL INFORMATION:evaluate for cholecystistis, we do need [...] Siva Nuno MD on 05/12/2025 8:20 AM Normal [facility] PROTIME AND INRon 05-12-2025 INR 1.1 Normal 0.9-1.2 [facility] Comment on above: Performed By: #### C BCA #### [facility] ([address] [address] VIR PT Coag (PPP) [Time] 13.0 s Normal 9.8-13.2 [facility] Comment on above: Performed By: #### C BCA #### [facility] ([address] [address] VIR BEDSIDE GLUCOSEon 05-11-2025 Glucose [Mass/Vol] 65 mg/dL Normal 65-99 [facility] Comment on above: Performed By: #### C MP #### [facility] ([address] [address] VIR Glucose [Mass/Vol] 78 mg/dL Normal 65-99 [facility] Comment on above: Performed By: #### C MP #### [facility] ([address] [address] VIR Glucose [Mass/Vol] 116 mg/dL High 65-99 [facility] Comment on above: Performed By: #### C MP #### [facility] ([address] [address] VIR CBC WITH AUTO DIFFERENTIALon 05-11-2025 BASOPHILS ABSOLUTE COUNT (10*3/UL) BY AUTOMATED COUNT 0.1 10*3/uL Normal 0.0-0.2 [facility] Comment on above: Performed By: #### C MP #### [facility] ([place] [address] [place] [address] VIR BASOPHILS RELATIVE PERCENT BY AUTOMATED COUNT 0.9 % Normal [facility] Comment on above: Performed By: #### C MP #### [facility] ([address] [place] [address] VIR CELLAVISION DIFFERENTIAL TYPE AUTOMATED DIFFERENTIAL Normal [facility] Comment on above: Performed By: #### C MP #### [facility] ([address] [place] [address] VIR Eosinophils (Bld) [#/Vol] 0.4 10*3/uL Normal 0.0-0.4 [facility] Comment on above: Performed By: #### C MP #### [address] [place] [address] VIR EOSINOPHILS RELATIVE PERCENT BY AUTOMATED COUNT 6.3 % Normal [facility] Comment on above: Performed By: #### C MP #### [facility] ([address] [place] [address] VIR Erythrocyte distribution width (RBC) [Ratio] 14.8 % Normal 11.5-15 [facility] Comment on above: Performed By: #### C MP #### [facility] ([address] [place] [address] VIR Hematocrit (Bld) [Volume fraction] 34.5 % Low 39-50 [facility] Comment on above: Performed By: #### C MP #### [facility] ([address] [place] [address] VIR Hemoglobin (Bld) [Mass/Vol] 11.7 g/dL Low 13-17 [facility] Comment on above: Performed By: #### C MP #### [facility] ([address] [place] [address] VIR LYMPHOCYTES ABSOLUTE COUNT (10*3/UL) BY AUTOMATED COUNT 1.0 10*3/uL Normal 1.0-3.5 [facility] Comment on above: Performed By: #### C MP #### [facility] ([address] [address] VIR LYMPHOCYTES RELATIVE PERCENT BY AUTOMATED COUNT 15.7 % Normal [facility] Comment on above: Performed By: #### C MP #### [facility] ([address] [address] VIR MCH (RBC) [Entitic mass] 34.7 pg High 27-34 [facility] Comment on above: Performed By: #### C MP #### [facility] ([address] [address] VIR MCHC (RBC) [Mass/Vol] 33.9 g/dL Normal 32-36 [facility] Comment on above: Performed By: #### C MP #### [facility] ([address] [address] VIR MCV (RBC) [Entitic vol] 102 fL High 80-100 [facility] Comment on above: Performed By: #### C MP #### [facility] ([address] [place] [address] VIR MONOCYTES ABSOLUTE COUNT (10*3/UL) BY AUTOMATED COUNT 0.5 10*3/uL Normal 0.0-0.9 [facility] Comment on above: Performed By: #### C MP #### [facility] ([address] [address] VIR MONOCYTES RELATIVE PERCENT BY AUTOMATED COUNT 8.1 % Normal [facility] Comment on above: Performed By: #### C MP #### [facility] ([address] [address] VIR NEUTROPHILS ABSOLUTE COUNT BY AUTOMATED COUNT 4.6 10*3/uL Normal 1.5-6.6 [facility] Comment on above: Performed By: #### C MP #### [facility] ([address] [place] [address] VIR NEUTROPHILS RELATIVE PERCENT BY AUTOMATED COUNT 69.0 % Normal [facility] Comment on above: Performed By: #### C MP #### [facility] ([address] [place] [address] VIR Platelet mean volume (Bld) [Entitic vol] 8.6 fL Normal 7-12 [facility] Comment on above: Performed By: #### C MP #### [facility] ([address] [place] [address] VIR Platelets (Bld) [#/Vol] 138 10*3/uL Low 150-450 [facility] Comment on above: Performed By: #### C MP #### [facility] ([address] [place] [address] VIR RBC COUNT 3.37 X10E12/L Low 4.1-5.7 [facility] Comment on above: Performed By: #### C MP #### [facility] ([address] [place] [address] VIR WBC (Bld) [#/Vol] 6.6 10*3/uL Normal 4-11 [facility] Comment on above: Performed By: #### C MP #### [facility] ([address] [place] [address] VIR COMPREHENSIVE METABOLIC PANE Deacon 05-11-2025 Albumin [Mass/Vol] 3.2 g/dL Normal 3.2-5.3 [facility] Comment on above: Performed By: #### C MP #### [facility] ([address] [place] [address] VIR ALP [Catalytic activity/Vol] 190 U/L High 39-130 [facility] Comment on above: Performed By: #### C MP #### [facility] ([address] [place] [address] VIR ALT [Catalytic activity/Vol] 31 U/L Normal <=40 [facility] Comment on above: Performed By: #### C MP #### [facility] ([address] [place] [address] VIR Anion gap [Moles/Vol] 8 mmol/L Normal 5-15 [facility] Comment on above: Performed By: #### C MP #### [facility] ([address] [place] [address] VIR AST [Catalytic activity/Vol] 45 U/L High <=41 [facility] Comment on above: Performed By: #### C MP #### [facility] ([address] [place] [address] VIR Bilirubin [Mass/Vol] 0.9 mg/dL Normal 0.3-1.2 [facility] Comment on above: Performed By: #### C MP #### [facility] ([address] [place] [address] VIR Calcium [Mass/Vol] 8.6 mg/dL Normal 8.5-10.5 [facility] Comment on above: Performed By: #### C MP #### [facility] ([address] [place] [address] VIR Chloride [Moles/Vol] 108 mmol/L Normal 98-109 [facility] Comment on above: Performed By: #### C MP #### [facility] ([address] [place] [address] VIR CO2 [Moles/Vol] 26 mmol/L Normal 22-32 [facility] Comment on above: Performed By: #### C MP #### [facility] ([address] [place] [address] VIR Creatinine [Mass/Vol] 1.24 mg/dL High 0.70-1.20 [facility] Comment on above: Result Comment: METH OD TRACEABLE TO IDMS STANDARD Performed By: #### C MP #### [facility] ([address] [place] [address] VIR GFR/1.73 sq M.predicted among non-blacks MDRD (S/P/Bld) [Vol rate/Area] 56 mL/min/{1.73_m2} Low >=60 [facility] Comment on above: Result Comment: eGFR not reported due to non-numeric value for Creatinine. EGFR not calculated due to patient's gender not being defined. Reported eGFR is based on the CKD-EPI 2020 equation that does not use a race coefficient. Performed By: #### C MP #### [facility] ([address] [place] [address] VIR Glucose [Mass/Vol] 164 mg/dL High 65-99 [facility] Comment on above: Performed By: #### C MP #### [facility] ([address] [place] [address] VIR Potassium [Moles/Vol] 3.4 mmol/L Low 3.5-5.0 [facility] Comment on above: Performed By: #### C MP #### [facility] ([address] [place] [address] VIR Protein [Mass/Vol] 7.2 g/dL Normal 6.0-8.0 [facility] Comment on above: Performed By: #### C MP #### [facility] ([address] [place] [address] VIR Sodium [Moles/Vol] 142 mmol/L Normal 134-146 [facility] Comment on above: Performed By: #### C MP #### [facility] ([facility]) [address] [place] [address] VIR Urea nitrogen [Mass/Vol] 32 mg/dL High 02-08 [facility] Comment on above: Performed By: #### C BRADLY #### [facility] ([facility]) [address] [place] [address] ABDOMEN AND PELVIS W CONT on 05-11-2025 CT ABDOMEN AND PELVIS W CONT CT [...] osseous lesion. Diastasis recti without maribell hernia. PERITONEUM/RETROPERITONEU M: Small volume free fluid. No free air. [...] by Param Boo on 05/11/2025 10:40 AM Normal [facility] LACTATE W/ REFLEXon 05-11-20 25 LACTATE W/REFLEX 1.3 mmol/L Normal 0.4-2.0 [facility] Comment on above: Order Comment: Resul t did not trigger repeat Lactate, re-order if needed. Performed By: #### L ACTS #### [facility] ([address] [place] [address] VIR POCT NURSING URINE MACROSCOP IC UAon 05-11-2025 BILIRUBIN JULIAN Negative Normal Negative [facility] Comment on above: Performed By: #### C MP #### [facility] ([address] [place] [address] VIR BLOOD/HGB JULIAN Trace Abnormal Negative [facility] Comment on above: Performed By: #### C MP #### [facility] ([address] [place] [address] VIR GLUCOSE JULIAN 500 mg/dL Abnormal Negative [facility] Comment on above: Performed By: #### C MP #### [facility] ([address] [place] [address] VIR KETONES JULIAN Negative Normal Negative [facility] Comment on above: Performed By: #### C MP #### [facility] ([address] [place] [address] VIR LEUKOCYTE ESTERASE JULIAN Negative Normal Negative [facility] Comment on above: Performed By: #### C MP #### [facility] ([address] [place] [address] VIR NITRITE JULIAN Negative Normal Negative [facility] Comment on above: Performed By: #### C MP #### [facility] ([address] [place] [address] VIR PH JULIAN 7.5 Normal 5.0, 6.0, 6.5, 7.0, 7.5, 8.0, 8.5, 5.5 [facility] Comment on above: Performed By: #### C MP #### [facility] ([address] [place] [address] VIR PROTEIN JULIAN Trace Abnormal Negative [facility] Comment on above: Performed By: #### C MP #### [facility] ([address] [place] [address] VIR SPECIFIC GRAVITY JULIAN 1.015 Normal 1.010, 1.015, 1.020, 1.025 [facility] Comment on above: Performed By: #### C MP #### [facility] ([address] [place] [address] VIR UROBILINOGEN JULIAN 0.2 E.U./dL Normal [facility] Comment on above: Performed By: #### C MP #### [facility] ([address] [place] [address] VIR URINALYSISon 05-11-2025 Bilirubin Ql (U) Negative Normal Negative [facility] Comment on above: Performed By: #### C MP #### [facility] ([address] [place] [address] VIR BLOOD/HGB Negative Normal Negative [facility] Comment on above: Performed By: #### C MP #### [facility] ([address] [place] [address] VIR Color (U) Yellow Normal Yellow [facility] Comment on above: Performed By: #### C MP #### [facility] ([address] [place] [address] VIR Glucose Ql (U) >=1000 mg/dL Abnormal Negative, 250 mg/dL [facility] Comment on above: Performed By: #### C MP #### [facility] ([facility]) [address] [place] [address] [place] [address] VIR Ketones Ql (U) Negative Normal Negative [facility] Comment on above: Performed By: #### C MP #### [facility] ([facility]) [address] [place] [address] [place] [address] VIR Leukocyte esterase Test strip Ql (U) Negative Normal Negative [facility] Comment on above: Performed By: #### C MP #### [facility] ([facility]) [address] [place], [place] [address]. [place] [address] VIR Nitrite Ql (U) Negative Normal Negative [facility] Comment on above: Performed By: #### C MP #### [facility] ([address] [place] [address] VIR PH,URINE 7.0 Normal 5.0-8.5 [facility] Comment on above: Performed By: #### C MP #### [facility] ([facility]) [address] [place], [place] [address] [address] VIR Protein Ql (U) Negative Normal Negative [facility] Comment on above: Performed By: #### C MP #### [facility] ([address] [place] [address] VIR Specific gravity (U) [Rel density] 1.010 Normal 1.003-1.035 [facility] Comment on above: Performed By: #### C MP #### [facility] ([address] [place] [address] VIR TURBIDITY Clear Normal Clear [facility] Comment on above: Performed By: #### C MP #### [facility] ([address] [place] [address] VIR UROBILINOGEN 0.2 eu/dL Normal 0.2 eu/dL, 1.0 eu/dL [facility] Comment on above: Performed By: #### C MP #### [facility] ([facility]) [address] [place] [address] [place] [address] VIR US ABDOMEN LMTDon 05-11-2025 US ABDOMEN LMTD US ABDOMEN LMTD US ABDOMEN LMTD Clinical history:RLQ pain/cirrhosis of [...] surface contour suggestive of cirrhosis. Finalized by Dominic Fraser MD on 05/11/2025 12:53 PM Normal [facility] Glucose (Bld) [Mass/Vol]Orde red By: Shena Butt on 02-14-2025 Glucose Blood, POC 105 mg/dL [facility] - Hematology and Cell countson 02-14-2025 HbA1c (Bld) [Mass fraction] 6.8 % [facility] No Panel InformationOrdered By: Shena Butt on 02-14-2025 [facility] BEDSIDE GLUCOSEon 01-14-2025 Glucose [Mass/Vol] 80 mg/dL Normal 65-99 [facility] Comment on above: Performed By: #### B EDG #### [facility] ([facility]) [address] [place] [address] VIR Glucose [Mass/Vol] 78 mg/dL Normal 65-99 [facility] Comment on above: Performed By: #### B EDG #### [facility] ([facility]) [address] [place] [address] [place] [address] VIR C DIFFICILE BY PCRon 025 027 NAP1 Negative Normal Presumptive Negative [facility] Comment on above: Result Comment: Liz felton methodology is nucleic acid amplification by real-time PCR for detection of C. difficile toxin gene sequences performed on [employer]. Performed By: #### C DFPCR #### [facility] ([facility]) [address] [place] [address] VIR TOXIGENIC C DIFF Positive Abnormal Negative [facility] Comment on above: Performed By: #### C DFPCR #### [facility] ([facility]) [address] [place] [address] VIR CBC WITH AUTO DIFFERENTIALon 01-14-2025 Band form neutrophils/100 WBC (Bld) 3 % Normal [facility] Comment on above: Result Comment: This is an appended report. These results have been appended to a previously preliminary verified report. Performed By: #### C BCA #### [facility] ([address] [address] VIR CELLAVISION ATYPICAL LYMPHOCYTES RELATIVE PERCENT BY MANUAL COUNT 1 % Normal [facility] Comment on above: Result Comment: This is an appended report. These results have been appended to a previously preliminary verified report. Performed By: #### C BCA #### [facility] ([address] [place] [address] VIR CELLAVISION BASOPHILS ABSOLUTE COUNT (10*3/UL) BY MANUAL COUNT 0.1 10*3/uL Normal [facility] Comment on above: Result Comment: This is an appended report. These results have been appended to a previously preliminary verified report. Performed By: #### C BCA #### [facility] ([address] [address] VIR CELLAVISION BASOPHILS RELATIVE PERCENT BY MANUAL COUNT 1 % Normal [facility] Comment on above: Result Comment: This is an appended report. These results have been appended to a previously preliminary verified report. Performed By: #### C BCA #### [facility] ([facility]) [address] [place] [address] VIR CELLAVISION DIFFERENTIAL TYPE CELLAVISION DIFFERENTIAL Normal [facility] Comment on above: Result Comment: This is an appended report. These results have been appended to a previously preliminary verified report. Performed By: #### C BCA #### [facility] ([facility]) [address] [place] [address] VIR CELLAVISION EOSINOPHILS ABSOLUTE COUNT (10*3/UL) BY MANUAL COUNT 0.7 10*3/uL Normal [facility] Comment on above: Result Comment: This is an appended report. These results have been appended to a previously preliminary verified report. Performed By: #### C BCA #### [facility] ([facility]) [address] [place] [address] VIR CELLAVISION EOSINOPHILS PERCENT BY MANUAL COUNT 7 % Normal [facility] Comment on above: Result Comment: This is an appended report. These results have been appended to a previously preliminary verified report. Performed By: #### C BCA #### [facility] ([facility]) [address] [place] [address] VIR CELLAVISION LYMPHOCYTES ABSOLUTE COUNT (10*3/UL) BY MANUAL COUNT 1.0 10*3/uL Normal [facility] Comment on above: Result Comment: This is an appended report. These results have been appended to a previously preliminary verified report. Performed By: #### C BCA #### [facility] ([facility]) [address] [place] [address] VIR CELLAVISION LYMPHOCYTES RELATIVE PERCENT BY MANUAL COUNT 10 % Normal [facility] Comment on above: Result Comment: This is an appended report. These results have been appended to a previously preliminary verified report. Performed By: #### C BCA #### [facility] ([facility]) [address] [place] [address]. [place] [address] VIR CELLAVISION MONOCYTES ABSOLUTE COUNT (10*3/UL) IN BLOOD BY MANUAL COUNT 0.8 10*3/uL Normal [facility] Comment on above: Result Comment: This is an appended report. These results have been appended to a previously preliminary verified report. Performed By: #### C BCA #### [facility] ([facility]) [address] [place] [address] VIR CELLAVISION MONOCYTES RELATIVE PERCENT BY MANUAL COUNT 8 % Normal [facility] Comment on above: Result Comment: This is an appended report. These results have been appended to a previously preliminary verified report. Performed By: #### C BCA #### [facility] ([facility]) [address] [place] [address] VIR CELLAVISION NEUTROPHILS ABSOLUTE COUNT BY MANUAL COUNT 6.8 10*3/uL Normal [facility] Comment on above: Result Comment: This is an appended report. These results have been appended to a previously preliminary verified report. Performed By: #### C BCA #### [facility] ([address] [address] VIR CELLAVISION NEUTROPHILS RELATIVE PERCENT BY MANUAL COUNT 70 % Normal [facility] Comment on above: Result Comment: This is an appended report. These results have been appended to a previously preliminary verified report. Performed By: #### C BCA #### [facility] ([address] [address] VIR CELLAVISION NUCLEATED RED BLOOD CELLS IN BLOOD BY LIGHT MICROSCOPY 1 Normal [facility] Comment on above: Result Comment: This is an appended report. These results have been appended to a previously preliminary verified report. Performed By: #### C BCA #### [facility] ([facility]) [address] [place] [address] VIR CELLAVISION POLYCHROMASIA IN BLOOD BY LIGHT MICROSCOPY 1+ Normal [facility] Comment on above: Result Comment: This is an appended report. These results have been appended to a previously preliminary verified report. Performed By: #### C BCA #### [facility] ([address] [place] [address] VIR Erythrocyte distribution width (RBC) [Ratio] 15.2 % High 11.5-15 [facility] Comment on above: Performed By: #### C BCA #### [facility] ([address] [place] [address] VIR Hematocrit (Bld) [Volume fraction] 36.3 % Low 39-50 [facility] Comment on above: Performed By: #### C BCA #### [facility] ([address] [address] VIR Hemoglobin (Bld) [Mass/Vol] 12.4 g/dL Low 13-17 [facility] Comment on above: Performed By: #### C BCA #### [facility] ([address] [address] VIR MCH (RBC) [Entitic mass] 35.3 pg High 27-34 [facility] Comment on above: Performed By: #### C BCA #### [facility] ([address] [address] VIR MCHC (RBC) [Mass/Vol] 34.3 g/dL Normal 32-36 [facility] Comment on above: Performed By: #### C BCA #### [facility] ([address] [place] [address] VIR MCV (RBC) [Entitic vol] 103 fL High 80-100 [facility] Comment on above: Performed By: #### C BCA #### [facility] ([address] [address] VIR Platelet mean volume (Bld) [Entitic vol] 8.5 fL Normal 7-12 [facility] Comment on above: Performed By: #### C BCA #### [facility] ([address] [address] VIR Platelets (Bld) [#/Vol] 190 10*3/uL Normal 150-450 [facility] Comment on above: Performed By: #### C BCA #### [facility] ([facility]) [address] [place] [address] [place] [address] VIR RBC COUNT 3.53 X10E12/L Low 4.1-5.7 [facility] Comment on above: Performed By: #### C BCA #### [facility] ([facility]) [address] [place] [address] [place] [address] VIR WBC (Bld) [#/Vol] 9.3 10*3/uL Normal 4-11 [facility] Comment on above: Performed By: #### C BCA #### [facility] ([address] [place] [address] VIR COMPREHENSIVE METABOLIC PANE Deacon 01-14-2025 Albumin [Mass/Vol] 3.1 g/dL Low 3.2-5.3 [facility] Comment on above: Performed By: #### C MP #### [facility] ([address] [place] [address] VIR ALP [Catalytic activity/Vol] 162 U/L High 39-130 [facility] Comment on above: Performed By: #### C MP #### [facility] ([address] [place] [address] VIR ALT [Catalytic activity/Vol] 25 U/L Normal <=40 [facility] Comment on above: Performed By: #### C MP #### [facility] ([address] [place] [address] VIR Anion gap [Moles/Vol] 8 mmol/L Normal 5-15 [facility] Comment on above: Performed By: #### C MP #### [facility] ([address] [place] [address] VIR AST [Catalytic activity/Vol] 42 U/L High <=41 [facility] Comment on above: Performed By: #### C MP #### [facility] ([address] [place] [address] VIR Bilirubin [Mass/Vol] 0.7 mg/dL Normal 0.3-1.2 [facility] Comment on above: Performed By: #### C MP #### [facility] ([address] [place] [address] VIR Calcium [Mass/Vol] 8.4 mg/dL Low 8.5-10.5 [facility] Comment on above: Performed By: #### C MP #### [facility] ([address] [place] [address] VIR Chloride [Moles/Vol] 112 mmol/L High 98-109 [facility] Comment on above: Performed By: #### C MP #### [facility] ([address] [place] [address] VIR CO2 [Moles/Vol] 20 mmol/L Low 22-32 [facility] Comment on above: Performed By: #### C MP #### [facility] ([address] [place] [address] VIR Creatinine [Mass/Vol] 1.34 mg/dL High 0.70-1.20 [facility] Comment on above: Result Comment: METH OD TRACEABLE TO IDMS STANDARD Performed By: #### C MP #### [facility] ([address] [place] [address] VIR GFR/1.73 sq M.predicted among non-blacks MDRD (S/P/Bld) [Vol rate/Area] 51 mL/min/{1.73_m2} Low >=60 [facility] Comment on above: Result Comment: eGFR not reported due to non-numeric value for Creatinine. Reported eGFR is based on the CKD-EPI 2020 equation that does not use a race coefficient. Performed By: #### C MP #### [facility] ([address] [place] [address] VIR Glucose [Mass/Vol] 75 mg/dL Normal 65-99 [facility] Comment on above: Performed By: #### C MP #### [facility] ([address] [place] [address] VIR Potassium [Moles/Vol] 3.5 mmol/L Normal 3.5-5.0 [facility] Comment on above: Performed By: #### C MP #### [facility] ([address] [place] [address] VIR Protein [Mass/Vol] 7.6 g/dL Normal 6.0-8.0 [facility] Comment on above: Performed By: #### C MP #### [facility] ([address] [place] [address] VIR Sodium [Moles/Vol] 140 mmol/L Normal 134-146 [facility] Comment on above: Performed By: #### C MP #### [facility] ([address] [place] [address] VIR Urea nitrogen [Mass/Vol] 21 mg/dL Normal 5-27 [facility] Comment on above: Performed By: #### C MP #### [facility] ([address] [place] [address] ABDOMEN AND PELVIS W CONT on 01-14-2025 CT ABDOMEN AND PELVIS W CONT CT ABDOMEN AND PELVIS W CONT CLINICAL INFORMATION: Abdominal pain, diarrhea. TECHNIQUE: CT abdomen and pelvis with intravenous contrast. All CT scans at this facility use dose modulation, iterative reconstruction, and/or weight based dosing when appropriate to reduce radiation dose to as low as reasonably achievable. COMPARISON: 03/09/2024. FINDINGS LOWER CHEST: Lung bases clear. HEPATOBILIARY: Cirrhotic liver morphology. Trace perihepatic ascites. Gallbladder unremarkable. No biliary dilation. PANCREAS: Pancreas unremarkable. No pancreatic ductal dilation. SPLEEN: Borderline enlarged spleen, 13 cm craniocaudal dimension. ADRENAL GLANDS: Within normal limits. KIDNEYS, URETERS, AND BLADDER: Kidneys are mildly atrophic. No collecting system dilation. Urinary bladder appears unremarkable. GI TRACT AND PERITONEUM: Small and large bowel are normal in caliber. Air-fluid levels throughout the colon. Colonic diverticulosis. No free air. VASCULATURE: Abdominal aorta is nonaneurysmal. Dense aortoiliac calcifications present. Portal, splenic, superior mesenteric veins patent. 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 LYMPH NODES: Prominent 12 mm carol ann hepatis lymph node, similar prior exam, likely related to underlying hepatocellular disease. REPRODUCTIVE ORGANS: Prostate calcifications. MSK: Degenerative changes throughout spine. IMPRESSION: * Air-fluid levels throughout the colon suggestive of nonspecific diarrheal state and/or enterocolitis. Otherwise, no acute abdominopelvic process. * Cirrhosis, trace ascites. Approved by Resident Zion Shi DO on 01/14/2025 11:54 AM IDominic MD have personally reviewed the image(s) and agree with and/or edited the report Finalized by Dominic Fraser MD on 01/14/2025 12:02 PM Normal [facility] GI PANEL STOOL PATHOGEN PANE Deacon 01-14-2025 ADENOVIRUS Not detected Normal Not Detected [facility] Comment on above: Performed By: #### G IP #### [facility] ([facility]) [address] [place] [address] VIR AGGREGATIVE E COLI Not detected Normal Not Detected [facility] Comment on above: Performed By: #### G IP #### [facility] ([facility]) [address] [place] [address] VIR ASTROVIRUS Not detected Normal Not Detected [facility] Comment on above: Performed By: #### G IP #### [facility] ([facility]) [address] [place] [address] VIR CAMPYLOBACTER Not detected Normal Not Detected [facility] Comment on above: Performed By: #### G IP #### [facility] ([facility]) [address] [place] [address] VIR CRYPTOSPORIDIUM Not detected Normal Not Detected [facility] Comment on above: Performed By: #### G IP #### [facility] ([facility]) [address] [place] [address] VIR CYCLOSPORA Not detected Normal Not Detected [facility] Comment on above: Performed By: #### G IP #### [facility] ([facility]) [address] [place] [address] VIR E HISTOLYTICA Not detected Normal Not Detected [facility] Comment on above: Performed By: #### G IP #### [facility] ([facility]) [address] [place] [address] VIR GIARDIA LAMBLIA Not detected Normal Not Detected [facility] Comment on above: Performed By: #### G IP #### [facility] ([facility]) [address] [place] [address] VIR NOROVIRUS Not detected Normal Not Detected [facility] Comment on above: Performed By: #### G IP #### [facility] ([facility]) [address] [place] [address] VIR PATHOGENIC E COLI Not detected Normal Not Detected [facility] Comment on above: Performed By: #### G IP #### [facility] ([facility]) [address] [place] [address] VIR PLESIOMONAS Not detected Normal Not Detected [facility] Comment on above: Performed By: #### G IP #### [facility] ([facility]) [address] [place] [address] VIR ROTAVIRUS A Not detected Normal Not Detected [facility] Comment on above: Performed By: #### G IP #### [facility] ([facility]) [address] [place] [address] VIR SALMONELLA Not detected Normal Not Detected [facility] Comment on above: Performed By: #### G IP #### [facility] ([facility]) [address] [place] [address] VIR SAPOVIRUS Not detected Normal Not Detected [facility] Comment on above: Performed By: #### G IP #### [facility] ([facility]) [address] [place] [address] VIR SHIGA TOXIN E COLI Not detected Normal Not Detected [facility] Comment on above: Performed By: #### G IP #### [facility] ([facility]) [address] [place] [address] VIR SHIGELLA-E COLI Not detected Normal Not Detected [facility] Comment on above: Performed By: #### G IP #### [facility] ([facility]) [address] [place] [address] VIR TOXIGENIC E COLI Not detected Normal Not Detected [facility] Comment on above: Performed By: #### G IP #### [facility] ([facility]) [address] [place] [address] VIR VIBRIO Not detected Normal Not Detected [facility] Comment on above: Performed By: #### G IP #### [facility] ([facility]) [address] [place] [address] VIR VIBRIO CHOLERAE Not detected Normal Not Detected [facility] Comment on above: Performed By: #### G IP #### [facility] ([facility]) [address] [place] [address] VIR Y. ENTEROCOLITICA Not detected Normal Not Detected [facility] Comment on above: Performed By: #### G IP #### [facility] ([facility]) [address] [place] [address] VIR O AND P SCREENon 01-14-2025 O AND P SCREEN OPS O & P SCREEN Cancelled Normal [facility] Comment on above: Order Comment: GIP O RDERED Glucose (Bld) [Mass/Vol]Orde red By: Shena Butt on 10-18-2024 Glucose Blood, POC 217 mg/dL [facility] HbA1c (Bld) [Mass fraction]o n 10-18-2024 [facility] Laboratory - Hematology and Cell countson 10-18-2024 HbA1c (Bld) [Mass fraction] 9.1 % [facility] ALL URINALYSISon 10-11-2024 BILIRUBIN URINE Negative NEGATIVE [facility] BLOOD URINE Negative NEGATIVE [facility] Clarity (U) CLEAR CLEAR [facility] Color (U) LT. YELLOW YELLOW [facility] GLUCOSE URINE UA 500 mg/dL Abnormal NEGATIVE [facility] Interpretation and review of laboratory results Abnormal [facility] Ketones Ql (U) Negative NEGATIVE mg/dL [facility] Leukocyte esterase Test strip Ql (U) Negative NEGATIVE [facility] NITRITE URINE Negative NEGATIVE [facility] pH (U) 5.5 [pH] 5.0 - 9.0 [facility] PROTEIN URINE Negative NEG/TRACE mg/dL [facility] SPECIFIC GRAVITY URINE 1.015 1.005 - 1.025 [facility] UROBILINOGEN URINE 0.2 EU/dL 0.2 - 1.0 EU/dL [facility] Erythrocyte distribution wid th Auto (RBC) [Ratio]on 10-11-2024 Erythrocyte distribution width (RBC) [Ratio] Erythrocyte distribution width [Ratio] by Automated count 11.0-15.0 [facility] Estimated glomerular filtrat ion rate (GFR) non- Americanon 10-11-2024 GFR/1.73 sq M.predicted among non-blacks MDRD (S/P/Bld) [Vol rate/Area] Estimated glomerular filtration rate (GFR) non- Low >=60 mL/min/1.73m 2 [facility] Hematocrit Auto (Bld) [Volum e fraction]on 10-11-2024 Hematocrit (Bld) [Volume fraction] Hematocrit [Volume Fraction] of Blood by Automated count Low 42.0-54.0 [facility] Hemoglobin [Mass/volume] in Bloodon 10-11-2024 Hemoglobin (Bld) [Mass/Vol] Hemoglobin [Mass/volume] in Blood Low 14.0-18.0 [facility] Iron binding capacity [Mass/ volume] in Serum or Plasmaon 10-11-2024 Iron binding capacity [Mass/Vol] Iron binding capacity [Mass/volume] in Serum or Plasma 250.0-450.0 [facility] Iron saturation [Mass Fracti on] in Serum or Plasmaon 10-11-2024 Iron saturation [Mass fraction] Iron saturation [Mass Fraction] in Serum or Plasma [facility] Laboratory - Chemistry and C hemistry - challengeon 10-11-2024 Albumin [Mass/Vol] 3.2 g/dL Low 3.4-5.0 [facility] Calcium [Mass/Vol] 9.4 mg/dL 8.5-10.1 [facility] Chloride [Moles/Vol] 101 mmol/L 98-107 [facility] CO2 [Moles/Vol] 28.1 mmol/L 21.0-32.0 [facility] Cobalamin (Vitamin B12) [Mass/Vol] 1909 pg/mL Abnormal 232-1245 [facility] Comment on above: Performed at: - [address] [id number] Director: Alonzo Haro PhD, Phone: [phone] Creatinine [Mass/Vol] 1.76 mg/dL High 0.70-1.30 [facility] Ferritin [Mass/Vol] 518.0 ng/mL High 26.0-388.0 [facility] GFR/1.73 sq M.predicted MDRD (S/P/Bld) [Vol rate/Area] 45 mL/min/{1.73_m2} Low >=60 mL/min/1.73m 2 [facility] Glucose [Mass/Vol] 159 mg/dL High 74-106 [facility] Iron [Mass/Vol] 121.0 ug/dL 65.0-175.0 [facility] Magnesium [Mass/Vol] 2.2 mg/dL 1.8-2.4 [facility] Potassium [Moles/Vol] 4.0 mmol/L 3.5-5.1 [facility] Sodium [Moles/Vol] 138 mmol/L 136-145 [facility] Urate [Mass/Vol] 8.5 mg/dL High 3.5-7.2 [facility] Urea nitrogen [Mass/Vol] 37.0 mg/dL High 7.0-18.0 [facility] Urea nitrogen/Creatinine [Mass ratio] 21.0 mg/mg [facility] Bilirubin Ql (U) Negative NEGATIVE [facility] Glucose (U) [Mass/Vol] 500 mg/dL Abnormal NEGATIVE Fi [facility] Ketones Ql (U) Negative NEGATIVE [facility] pH (U) 5.5 [pH] 5.0-9.0 [facility] Specific gravity (U) [Rel density] 1.015 1.005-1.025 [facility] Urobilinogen Qn (U) 0.2 {Ric'U}/dL 0.2-1.0 [facility] Laboratory - Specimen inform ationon 10-11-2024 Appearance (U) CLEAR CLEAR [facility] Color (U) LT. YELLOW YELLOW [facility] Laboratory - Urinalysison Leukocyte esterase Test strip Ql (U) Negative NEGATIVE [facility] Nitrite Ql (U) Negative NEGATIVE [facility] Protein (U) [Mass/Vol] 8.6 mg/dL <=11.9 [facility] Protein Ql (U) Negative NEG/TRACE [facility] Leukocytes [#/volume] correc benito for nucleated erythrocytes in Blood by Automated counon 10-11-2024 WBC corrected for nucl RBC Auto (Bld) [#/Vol] Leukocytes [#/volume] corrected for nucleated erythrocytes in Blood by Automated coun 4.0-11.0 [facility] MCH Auto (RBC) [Entitic mass ]on 10-11-2024 MCH (RBC) [Entitic mass] MCH [Entitic mass] by Automated count 25.9-34.0 [facility] MCHC Auto (RBC) [Mass/Vol]on 10-11-2024 MCHC (RBC) [Mass/Vol] MCHC [Mass/volume] by Automated count 29.9-35.2 [facility] MCV Auto (RBC) [Entitic vol] on 10-11-2024 MCV (RBC) [Entitic vol] MCV [Entitic volume] by Automated count High 80.0-94.0 [facility] No Panel Informationon 10-11 25-Hydroxy Vitamin D Total 40.1 ng/mL [facility] Comment on above: <20 ng/mL Vit D defi cient20-<30 ng/mL Vit D riwoqvndmgdo69-484 ng/mL Vit D sufficient>100 ng/mL Potential Toxicity Folate 17.10 ng/mL 8.60-58.90 [facility] Parathyroid Hormone (Intact) 58 pg/mL 15-65 [facility] Comment on above: Performed at: [facility] [place] [id number] Director: Alonzo Haro PhD, Phone: [phone] Phosphorus Level 4.1 mg/dL 2.6-4.7 [facility] Urine Occult Blood Negative NEGATIVE [facility] Urine Random Creatinine <13.00 mg/dL Low 20.00-300.00 [facility] Platelet mean volume Auto (B ld) [Entitic vol]on 10-11-2024 Platelet mean volume (Bld) [Entitic vol] Platelet mean volume [Entitic volume] in Blood by Automated count 9.5-13.5 [facility] Platelets Auto (Bld) [#/Vol] on 10-11-2024 Platelets (Bld) [#/Vol] Platelets [#/volume] in Blood by Automated count 150-450 [facility] RBC Auto (Bld) [#/Vol]on RBC (Bld) [#/Vol] Erythrocytes [#/volu me] in Blood by Automated count Low 4.70-6.10 [facility] Serum or plasma anion gap de terminationon 10-11-2024 Anion gap [Moles/Vol] Serum or plasma an ion gap determination [facility] Office Visiton 09-06-2024 Follow-up visit [id number] Milton Henderson 1935 M Date Provider Department Center 09/06/2024 [facility]JAIDEN [facility]ONES [facility] Family History Problem Relation Age of Onset No Known Problems Mother No Known Problems Father Family Status - Relation Status Age at Mother Father Level of Service:63523 MS OFFICE/OUTPATIENT ESTABLISHED LOW MDM 20 MIN Normal [facility] US liveron 07-02-2024 US liver [facility] Main [address] [address] Ultrasound Report Signed Patient: Carlo Henderson MR#: [id number] : 1935 Acct:[id number] Age/Sex: 88 / M ADM Date: 07/02/24 Loc: Room: Type: [facility] Attending Dr: Andry Morales MD Ordering [...] MASS.. Impression dictated by: Tl Jones Jr., RomeroOEunice07/02/2024 3:54 PM Dictation Location: [place] [address] Tech: Karen Collier Transcribed By: [facility] 07/02/24 155 Dictated By: Tl Jones Jr, DO 07/02/24 155 Signed By: 07/02/241553 Normal [facility] AFP Tumor Marker, Serumon AFP Tumor Marker, Serum 3.0 ng/mL Normal 0.0-6.4 [facility] Comment on above: Result Comment: [employer] Electrochemiluminescence Immunoassay (ECLIA) Values obtained with different assay methods or kits cannot be used interchangeably. Results cannot be interpreted as absolute evidence of the presence or absence of malignant disease. This test is not interpretable in females. Performed at: [address] [id number] Business Services Officer: Alonzo Haro PhD, Phone: [phone] Performed By: #### H AABT, MITOM2, HCV RX PCR, HBSAB, CERULOP, IGG, L-K MICRO, HEMOCHROM, HBCAB, ALPHA PHEN, HCBIGM, POLO, SMAB, HBSAG, HAAB, AFPTM #### [facility] , #### JAS, PT, CMP #### [address] POLO Antinuclear Antibodieson 06-17-2024 Antinuclear Abs, IFA Negative Normal . [facility] Comment on above: Result Comment: Nega tive <1:80 Borderline 1:80 Positive >1:80 ICAP nomenclature: AC-0 For more information about Hep-2 cell patterns use ANApatterns.org, the official website for the International Consensus on Antinuclear Antibody (POLO) Patterns (ICAP). Performed at: [facility] [place] [id number] Business Services Officer: Alonzo Haro PhD, Phone: [phone] Performed By: #### H AABT, MITOM2, HCV RX PCR, HBSAB, CERULOP, IGG, L-K MICRO, HEMOCHROM, HBCAB, ALPHA PHEN, HCBIGM, POLO, SMAB, HBSAG, HAAB, AFPTM #### [facility] , #### JAS, PT, CMP #### [address] Actin smooth muscle IgG Ab [ Units/volume] in SerumOrdered By: Imad Asaad on 06-17-2024 Actin smooth muscle IgG Qn (S) 12 Units 0-19 [facility] Comment on above: Negative 0 - 19 Weak positive 20 - 30 Moderate to strong positive >30 Actin Antibodies are found in 52-85% of patients with autoimmune hepatitis or chronic active hepatitis and in 22% of patients with primary biliary cirrhosis. Alanine aminotransferase [En zymatic activity/volume] in Serum or PlasmaOrdered By: Imad Asaad on 06-17-2024 ALT [Catalytic activity/Vol] 33 U/L Normal 7-52 [facility] Comment on above: Performed By: #### H AABT, MITOM2, HCV RX PCR, HBSAB, CERULOP, IGG, L-K MICRO, HEMOCHROM, HBCAB, ALPHA PHEN, HCBIGM, POLO, SMAB, HBSAG, HAAB, AFPTM #### [facility] , #### JAS, PT, CMP #### [address] Albumin [Mass/volume] in Ser um or Plasma by Bromocresol green (BCG) dye binding methoOrdered By: Imad Asaad on 06-17-2024 Albumin BCG dye [Mass/Vol] 4.2 g/dL 3.5-5.7 [facility] Alkaline phosphatase [Enzyma tic activity/volume] in Serum or PlasmaOrdered By: Imad Asaad on 06-17-2024 ALP [Catalytic activity/Vol] 194 U/L High 34-104 [facility] Comment on above: Performed By: #### H AABT, MITOM2, HCV RX PCR, HBSAB, CERULOP, IGG, L-K MICRO, HEMOCHROM, HBCAB, ALPHA PHEN, HCBIGM, POLO, SMAB, HBSAG, HAAB, AFPTM #### [facility] , #### JAS, PT, CMP #### [address] Fnuxu-8-Zfdalrqoxzs Phenotyp pricilla 06-17-2024 Alpha 1 Anti-Trypsin 126 mg/dL Normal 101-187 [facility] Comment on above: Performed By: #### H AABT, MITOM2, HCV RX PCR, HBSAB, CERULOP, IGG, L-K MICRO, HEMOCHROM, HBCAB, ALPHA PHEN, HCBIGM, POLO, SMAB, HBSAG, HAAB, AFPTM #### [facility] , #### JAS, PT, CMP #### [address] Phenotype (P1) MZ Normal . [facility] Comment on above: Result Comment: MM Phenotype is considered to be normal , producing normal serum levels of ktsae-2-fjbzjabx inhibitor and not associated with clinical disease. [...] Ranges used to confirm phenotype. Performed at: [address] [id number] Business Services Officer: Alonzo Haro PhD, Phone: [phone] Performed at: [address] [id number] Business Services Officer: Rachell Rico MD, Phone: [phone] Performed By: #### H AABT, MITOM2, HCV RX PCR, HBSAB, CERULOP, IGG, L-K MICRO, HEMOCHROM, HBCAB, ALPHA PHEN, HCBIGM, POLO, SMAB, HBSAG, HAAB, AFPTM #### [facility] , #### JAS, PT, CMP #### [facility] [address] [place] [address] Aspartate aminotransferase [ Enzymatic activity/volume] in Serum or PlasmaOrdered By: Andry Morales on 06-17-2024 AST [Catalytic activity/Vol] 41 U/L High 13-39 [facility] Comment on above: Performed By: #### H AABT, MITOM2, HCV RX PCR, HBSAB, CERULOP, IGG, L-K MICRO, HEMOCHROM, HBCAB, ALPHA PHEN, HCBIGM, POLO, SMAB, HBSAG, HAAB, AFPTM #### [facility] , #### JAS, PT, CMP #### [address] Bilirubin.total [Mass/volume ] in Serum or PlasmaOrdered By: Andry Morales on 06-17-2024 Bilirubin [Mass/Vol] 0.9 mg/dL Normal 0.3-1.0 [facility] Comment on above: Performed By: #### H AABT, MITOM2, HCV RX PCR, HBSAB, CERULOP, IGG, L-K MICRO, HEMOCHROM, HBCAB, ALPHA PHEN, HCBIGM, POLO, SMAB, HBSAG, HAAB, AFPTM #### [facility] , #### JAS, PT, CMP #### [facility] [address] Blood or tissue HFE gene mut ations identification by molecular genetics methodOrdered By: Andry Morales on 06-17-2024 HFE gene targeted mutation analysis [employer] Nom (Bld/Tiss) Comment . [facility] Comment on above: Result:c.845G>A (p.C il106Wjh) - Not Detectedc.187C>G (p.Kyt64Syv) - Not Detectedc.193A>T (p.Zng13Czo) - Not DetectedNot associated with increased risk [...] recommended for patientswho are homozygous for c.845G>A (p.Uzh224Xze) and have yetto experience clinical symptoms.Comments:The most common HFE variants associated with hereditaryhemochromatosis are c.845G>A (p.Ygn909Rdh), c.187C>G(p.Pxo96Ztl), c.193A>T (p.Tsr80Olg). While patientshomozygous for c.845G>A (p.Rgc065Nux) are the most likelyto present clinical symptoms, less than 10% developclinically significant iron overload with tissue and organdamage.Genetic counseling is recommended to discuss the potentialclinical implications of positive results, as well asrecommendations for testing family members.Genetic Coordinators are available for health careproviders to discuss results at [phone] ([phone]).Test Details:Three variants analyzed:c.845G>A (p.Vsd028Pho), commonly referred to as C282Yc.187C>G (p.Vku37Gkj), commonly referred to as H63Dc.193A>T (p.Fjy38Ubp), commonly referred to as B02OPbyhvrq/Limitations:DNA Analysis of the HFE gene (NM_000410.4) was [...] was developed and its performancecharacteristics determined by [employer]. It has not beencleared or approved by the Food and Drug Administration.References:Heriberto BR, Scott PC, Lyle KV, Darrell LW, Abdias ;[place].Diagnosis and management of hemochromatosis: 2011 practiceguideline by the [place] [employer] for the Study ofLiver Diseases. Hepatology. 2011 Mar;54(1):328-43. doi:10.1002/hep.58777. PMID: 22898883; PMCID: DPI6007834.Doris G, Jose P, Desiree DW, Kourtney H, Sue O,Teofilo S, Israel I, Enrique Plascencia, Gokuljose francisco MESSINAN best practiceguidelines for the molecular genetic diagnosis ofhereditary hemochromatosis (HH). Eur J Hum [place]iah. 2016Apr;24(4):479-08. doi: 10.1038/ejhg.2015.128. Epub 2014. PMID: 94643529; PMCID: SEQ7872096. Calcium [Mass/volume] in Ser um or PlasmaOrdered By: Imad Asaad on 06-17-2024 Calcium [Mass/Vol] 10.1 mg/dL Normal 8.6-10.3 [facility] Comment on above: Performed By: #### H AABT, MITOM2, HCV RX PCR, HBSAB, CERULOP, IGG, L-K MICRO, HEMOCHROM, HBCAB, ALPHA PHEN, HCBIGM, POLO, SMAB, HBSAG, HAAB, AFPTM #### [facility] , #### JAS, PT, CMP #### [facility] [address] [place] [address] Carbon dioxide, total [Moles /volume] in Serum or PlasmaOrdered By: Imad Asaad on 06-17-2024 CO2 [Moles/Vol] 29.4 mmol/L Normal 21.0-31.0 [facility] Comment on above: Performed By: #### H AABT, MITOM2, HCV RX PCR, HBSAB, CERULOP, IGG, L-K MICRO, HEMOCHROM, HBCAB, ALPHA PHEN, HCBIGM, POLO, SMAB, HBSAG, HAAB, AFPTM #### [facility] , #### JAS, PT, CMP #### [facility] [address] [place] [address] Ceruloplasminon 06-17-2024 Ceruloplasmin 38.7 mg/dL High 16.0-31.0 [facility] Comment on above: Result Comment: Perf ormed at: CB - [facility] [address] [id number] Business Services Officer: Alonzo Haro PhD, Phone: [phone] PERFORMED BY: [place] [address] PATHOLOGIST ACADEMIC HOSPITALIST GAGAN CAMEJO M.D. Performed By: #### H AABT, MITOM2, HCV RX PCR, HBSAB, CERULOP, IGG, L-K MICRO, HEMOCHROM, HBCAB, ALPHA PHEN, HCBIGM, POLO, SMAB, HBSAG, HAAB, AFPTM #### [facility] , #### JAS, PT, CMP #### [facility] [address] [place] [address] Chloride [Moles/volume] in S wicho or PlasmaOrdered By: Andry Morales on 06-17-2024 Chloride [Moles/Vol] 98 mmol/L Normal 98-107 [facility] Comment on above: Performed By: #### H AABT, MITOM2, HCV RX PCR, HBSAB, CERULOP, IGG, L-K MICRO, HEMOCHROM, HBCAB, ALPHA PHEN, HCBIGM, POLO, SMAB, HBSAG, HAAB, AFPTM #### [facility] , #### JAS, PT, CMP #### [facility] [address] [place] [address] Comprehensive Metabolic Pane deacon 06-17-2024 Albumin [Mass/Vol] 4.2 g/dL Normal 3.5-5.7 [facility] Comment on above: Performed By: #### H AABT, MITOM2, HCV RX PCR, HBSAB, CERULOP, IGG, L-K MICRO, HEMOCHROM, HBCAB, ALPHA PHEN, HCBIGM, POLO, SMAB, HBSAG, HAAB, AFPTM #### [facility] , #### JAS, PT, CMP #### [facility] [address] [place] [address] GFR/1.73 sq M.predicted MDRD (S/P/Bld) [Vol rate/Area] 36.466 mL/min/{1.73_m2} Normal [facility] Comment on above: Performed By: #### H AABT, MITOM2, HCV RX PCR, HBSAB, CERULOP, IGG, L-K MICRO, HEMOCHROM, HBCAB, ALPHA PHEN, HCBIGM, POLO, SMAB, HBSAG, HAAB, AFPTM #### [facility] , #### JAS, PT, CMP #### [facility] [address] [place] [address] Creatinine [Mass/volume] in Serum or PlasmaOrdered By: Imad Asaad on 06-17-2024 Creatinine [Mass/Vol] 1.78 mg/dL High 0.70-1.30 [facility] Comment on above: Performed By: #### H AABT, MITOM2, HCV RX PCR, HBSAB, CERULOP, IGG, L-K MICRO, HEMOCHROM, HBCAB, ALPHA PHEN, HCBIGM, POLO, SMAB, HBSAG, HAAB, AFPTM #### [facility] , #### JAS, PT, CMP #### [facility] [address] [place] [address] [place] Ferritin [Mass/volume] in Se rum or PlasmaOrdered By: Imad Asaad on 06-17-2024 Ferritin [Mass/Vol] 440.7 ng/mL High 23.9-336.2 [facility] Comment on above: Result Comment: PERF ORMED BY: [place] [address] PATHOLOGIST ACADEMIC HOSPITALIST GAGAN CAMEJO M.D. Performed By: #### H AABT, MITOM2, HCV RX PCR, HBSAB, CERULOP, IGG, L-K MICRO, HEMOCHROM, HBCAB, ALPHA PHEN, HCBIGM, POLO, SMAB, HBSAG, HAAB, AFPTM #### [facility] , #### JAS, PT, CMP #### [facility] [address] [place] [address] [place] Glucose [Mass/volume] in Ser um or PlasmaOrdered By: Imad Asaad on 06-17-2024 Glucose [Mass/Vol] 219 mg/dL High 70-100 [facility] Comment on above: ADA recommended refe rence rangeRandom Glucose Reference Range is dependent on time and content of last meal. Glucose of more than 200 mg/dL in a nonstressed, ambulatory subject supports the diagnosis of Diabetes Mellitus. Result Comment: [place] Glucose Reference Range is dependent on time [...] [facility] , #### JAS, PT, CMP #### [address] Hep C Ab wRfx to Qnt PCRon 1 Hepatitis C Virus Antibody Non-Reactive Normal Non Reactive [facility] Comment on above: Performed By: #### H AABT, MITOM2, HCV RX PCR, HBSAB, CERULOP, IGG, L-K MICRO, HEMOCHROM, HBCAB, ALPHA PHEN, HCBIGM, POLO, SMAB, HBSAG, HAAB, AFPTM #### [facility] , #### JAS, PT, CMP #### [address] Interpretation Hepatitis C Comment Normal . [facility] Comment on above: Result [...] [facility] , #### JAS, PT, CMP #### [address] Hepatitis A Antibody IgMon Hepatitis A Antibody IgM Negative Normal Negative [facility] Comment on above: Result Comment: A ne gative anti-HAV IgM result suggests no recent or current HAV infection. Performed By: #### H AABT, MITOM2, HCV RX PCR, HBSAB, CERULOP, IGG, L-K MICRO, HEMOCHROM, HBCAB, ALPHA PHEN, HCBIGM, POLO, SMAB, HBSAG, HAAB, AFPTM #### [facility] , #### JAS, PT, CMP #### [address] Hepatitis A Antibody Totalon 06-17-2024 Hepatitis A Antibody Total Negative Normal Negative [facility] Comment on above: Result [...] total antibody results to IgM (e.g., panel #[id number] HAV Antibody w/ Rfx). Performed By: #### H AABT, MITOM2, HCV RX PCR, HBSAB, CERULOP, IGG, L-K MICRO, HEMOCHROM, HBCAB, ALPHA PHEN, HCBIGM, POLO, SMAB, HBSAG, HAAB, AFPTM #### [facility] , #### JAS, PT, CMP #### [address] Hepatitis A virus Ab [Presen ce] in Serum by ImmunoassayOrdered By: Andry Morales on 06-17-2024 HAV Ab IA Ql (S) Negative Negative [facility] Comment on above: Comment: The HAV [...] HAVtotal antibody results to IgM (e.g., panel #[id number] HAVAntibody w/ Rfx). Hepatitis B Core Antibodyon 06-17-2024 Hepatitis B Core Antibody Negative Normal Negative [facility] Comment on above: Performed By: #### H AABT, MITOM2, HCV RX PCR, HBSAB, CERULOP, IGG, L-K MICRO, HEMOCHROM, HBCAB, ALPHA PHEN, HCBIGM, POLO, SMAB, HBSAG, HAAB, AFPTM #### [facility] , #### JAS, PT, CMP #### [address] Hepatitis B Core Antibody Ig Mon 06-17-2024 Hepatitis B Core Antibody IgM Negative Normal Negative [facility] Comment on above: Result Comment: Perf ormed at: [facility] [id number] Business Services Officer: Alonzo Haro PhD, Phone: [phone] Performed By: #### H AABT, MITOM2, HCV RX PCR, HBSAB, CERULOP, IGG, L-K MICRO, HEMOCHROM, HBCAB, ALPHA PHEN, HCBIGM, POLO, SMAB, HBSAG, HAAB, AFPTM #### [facility] , #### JAS, PT, CMP #### [address] Hepatitis B Surface Antibody on 06-17-2024 Hepatitis B Surface Antibody Non-Reactive Normal . [facility] Comment on above: Result [...] [facility] , #### JAS, PT, CMP #### [address] Hepatitis B Surface Antigeno n 06-17-2024 HBsAg Screen Negative Normal Negative [facility] Comment on above: Result Comment: PERF ORMED BY: [address] [place] [address] PATHOLOGIST ACADEMIC HOSPITALIST GAGAN CAMEJO M.D. Performed By: #### H AABT, MITOM2, HCV RX PCR, HBSAB, CERULOP, IGG, L-K MICRO, HEMOCHROM, HBCAB, ALPHA PHEN, HCBIGM, POLO, SMAB, HBSAG, HAAB, AFPTM #### [facility] , #### JAS, PT, CMP #### [facility] [address] [place] [address] Hepatitis B virus surface Ab [Presence] in SerumOrdered By: Imad Asaad on 06-17-2024 HBV surface Ab Ql (S) Non-Reactive . [facility] Comment on above: Non Reactive: Not [...] HBV surface Ag IA Ql Negative Negative [facility] Hepatitis C virus IgG Ab [Pr esence] in Serum or Plasma by ImmunoassayOrdered By: Imad Asaad on 06-17-2024 HCV IgG IA Ql Non-Reactive Non Reactive [facility] Hereditary Hemochromatosis,D NAon 06-17-2024 Hereditary Hemochromatosis Comment Normal . [facility] Comment on above: Result Comment: Resu lt: c.845G>A (p.Zpk378Biq) - Not Detected c.187C>G (p.Hqd61Twt) - Not Detected c.193A>T (p.Sfc41Eas) - Not Detected Not associated with increased [...] for patients who are homozygous for c.845G>A (p.Ral332Thl) and have yet to experience clinical symptoms. Comments: The most common HFE variants associated with hereditary hemochromatosis are c.845G>A (p.Cze342Oyk), c.187C>G (p.Vab28Kwq), c.193A>T (p.Rwf97Hkh). While patients homozygous for c.845G>A (p.Nto564Yer) are the most likely to present clinical symptoms, less than 10% develop clinically significant iron overload with tissue and organ damage. Genetic counseling is recommended to discuss the potential clinical implications of positive results, as well as recommendations for testing family members. Genetic Coordinators are available for health care providers to discuss results at [phone] Test Details: Three variants analyzed: c.845G>A (p.Coy961Jfw), commonly referred to as C282Y c.187C>G (p.Xnq41Kou), commonly referred to as H63D c.193A>T (p.Vlx59Vzf), commonly referred to as S65C Methods/Limitations: DNA [...] developed and its performance characteristics determined by [employer]. It has not been cleared or approved by the Food and Drug Administration. References: Heriberto BR, Scott PC, Lyle KV, Darrell LW, Abdias ; [place] [employer]. Diagnosis and management of hemochromatosis: 2011 practice guideline by the [place] [employer]. Hepatology. 2010;54(1):328-43. doi: 10.1002/hep.13513. PMID: 53428746; PMCID: SPD5765010. Doris G, Jose P, Desiree ORTIZ, Kourtney H, Sue O, Teofilo S, Israel I, Enrique M, Gokul S. [facility] best practice guidelines for the molecular genetic diagnosis of hereditary hemochromatosis (HH). Eur J Hum Mariah. 2016 Dec;24(4):479-95. doi: 10.1038/ejhg.2015.128. Epub 2014Mar 22. PMID: 61908133; PMCID: VUR4692240. Performed By: #### H AABT, MITOM2, HCV RX PCR, HBSAB, CERULOP, IGG, L-K MICRO, HEMOCHROM, HBCAB, ALPHA PHEN, HCBIGM, POLO, SMAB, HBSAG, HAAB, AFPTM #### [facility] , #### JAS, PT, CMP #### [address] Reviewed by: Comment Normal . [facility] Comment on above: Result Comment: Gwendolyn Darby, PhD Director, Molecular Genetics Performed at: [facility] [address] [id number] Business Services Officer: [facility], Phone: [phone] PERFORMED BY: [place] [address] PATHOLOGIST ACADEMIC HOSPITALIST GAGAN CAMEJO M.D. Performed By: #### H AABT, MITOM2, HCV RX PCR, HBSAB, CERULOP, IGG, L-K MICRO, HEMOCHROM, HBCAB, ALPHA PHEN, HCBIGM, POLO, SMAB, HBSAG, HAAB, AFPTM #### [facility] , #### JAS, PT, CMP #### [address] INR in Platelet poor plasma by Coagulation assayOrdered By: Andry Morales on 06-17-2024 INR Coag (PPP) [Relative time] 1.1 {INR} Normal [facility] Comment on above: INR Therapeutic Rang [...] heart valves: 3 - 4.5 PERFORMED BY: [place] [address] PATHOLOGIST ACADEMIC HOSPITALIST GAGAN CAMEJO M.D. Performed By: #### H AABT, MITOM2, HCV RX PCR, HBSAB, CERULOP, IGG, L-K MICRO, HEMOCHROM, HBCAB, ALPHA PHEN, HCBIGM, POLO, SMAB, HBSAG, HAAB, AFPTM #### [facility] , #### JAS, PT, CMP #### [facility] [address] [place] [address] IgG [Mass/volume] in Serum o r PlasmaOrdered By: Andry Morales on 06-17-2024 IgG [Mass/Vol] 1951 mg/dL High 603-5863 [facility] Comment on above: Performed at: CB - [facility] [address] [id number] Director: Alonzo Haro PhD, Phone: [phone] Immunoglobulin [place]sm[place] Immunoglobulin G 1951 mg/dL High 603-1133 [facility] Comment on above: Result Comment: Perf ormed at: CB - [facility] [place] [address] [place], [place] [id number] Business Services Officer: Alonzo Haro PhD, Phone: [phone] Performed By: #### H AABT, MITOM2, HCV RX PCR, HBSAB, CERULOP, IGG, L-K MICRO, HEMOCHROM, HBCAB, ALPHA PHEN, HCBIGM, POLO, SMAB, HBSAG, HAAB, AFPTM #### [facility] , #### JAS, PT, CMP #### [address] Liver-Kidney Microsomal Abon 06-17-2024 Liver-Kidney Microsomal Ab <1.0 Normal 0.0-20.0 [facility] Comment on above: Result Comment: Nega tive 0.0 - 20.0 Equivocal 20.1 - 24.9 Positive >24.9 LKM type 1 antibodies are detected in patients with autoimmune hepatitis type 2 and in up to 8% of patients with chronic HCV infection. Performed at: [address] [id number] Business Services Officer: Alonzo Haro PhD, Phone: [phone] Performed By: #### H AABT, MITOM2, HCV RX PCR, HBSAB, CERULOP, IGG, L-K MICRO, HEMOCHROM, HBCAB, ALPHA PHEN, HCBIGM, POLO, SMAB, HBSAG, HAAB, AFPTM #### [facility] , #### JAS, PT, CMP #### [address] Mitochondrial (M2) Antibodyo n 06-17-2024 Mitochondrial (M2) Antibody <20.0 Normal 0.0-20.0 [facility] Comment on above: Result Comment: Nega tive 0.0 - 20.0 Equivocal 20.1 - 24.9 Positive >24.9 Mitochondrial (M2) Antibodies are found in 90-96% of patients with primary biliary cirrhosis. Performed at: [address] [id number] Business Services Officer: Alonzo Haro PhD, Phone: [phone] Performed By: #### H AABT, MITOM2, HCV RX PCR, HBSAB, CERULOP, IGG, L-K MICRO, HEMOCHROM, HBCAB, ALPHA PHEN, HCBIGM, POLO, SMAB, HBSAG, HAAB, AFPTM #### [facility] , #### JAS, PT, CMP #### [facility] [address] No Panel InformationOrdered By: Andry Morales on 06-17-2024 Estimated GFR (CKD-EPI) 36.466 mL/Min [facility] Hemochromatosis Note Comment . [facility] Comment on above: Lon Ramos hDDirector, Molecular GeneticsPerformed at: TG - [facility] [id number] [facility], [place], [place] [id number] Director: [facility], Phone: [phone] Hepatitis A IgM Antibody Negative Negative [facility] Comment on above: A negative anti-HAV IgM result suggests no recent orcurrent HAV infection. Hepatitis B Core IgM Antibody Negative Negative [facility] Comment on above: Performed at: - [facility] [address] [id number] Director: Alonzo Haro PhD, Phone: [phone] Hepatitis B Core Total Antibody Negative Negative [facility] Hepatitis C Interpretation Comment . [facility] Comment on above: Not infected with HC V unless early or acute infection issuspected (which may be delayed in an immunocompromisedindividual), or other evidence exists to indicate HCVinfection. Pharmacy Creatinine Clearance (Chem N/A [facility] Potassium [Moles/volume] in Serum or PlasmaOrdered By: Andry Morales on 06-17-2024 Potassium [Moles/Vol] 4.4 mmol/L Normal 3.5-5.1 [facility] Comment on above: Performed By: #### H AABT, MITOM2, HCV RX PCR, HBSAB, CERULOP, IGG, L-K MICRO, HEMOCHROM, HBCAB, ALPHA PHEN, HCBIGM, POLO, SMAB, HBSAG, HAAB, AFPTM #### [facility] , #### JAS, PT, CMP #### [facility] [address] [place] [address] [place] Protein [Mass/volume] in Ser um or PlasmaOrdered By: Andry Morales on 06-17-2024 Protein [Mass/Vol] 8.2 g/dL Normal 6.4-8.9 [facility] Comment on above: Performed By: #### H AABT, MITOM2, HCV RX PCR, HBSAB, CERULOP, IGG, L-K MICRO, HEMOCHROM, HBCAB, ALPHA PHEN, HCBIGM, POLO, SMAB, HBSAG, HAAB, AFPTM #### [facility] , #### JAS, PT, CMP #### [facility] [address] Prothrombin time (PT)Ordered By: antonia Morales on 06-17-2024 PT Coag (PPP) [Time] 13.0 s High 9.0-12.9 [facility] Comment on above: A hematocrit value g reater than 55% may lead to inaccurate results in coagulation testing. Patients having hematocrit values >55% require a special collection tube for coagulation studies. Please contact the laboratory at [phone] for redraw instructions. Result Comment: A he matocrit value greater than 55% may lead to inaccurate results in coagulation testing. Patients having hematocrit values >55% require a special collection tube for coagulation studies. Please contact the laboratory at [phone] for redraw instructions. Performed By: #### H AABT, MITOM2, HCV RX PCR, HBSAB, CERULOP, IGG, L-K MICRO, HEMOCHROM, HBCAB, ALPHA PHEN, HCBIGM, POLO, SMAB, HBSAG, HAAB, AFPTM #### [facility] , #### JAS, PT, CMP #### [facility] [address] Serum njayi-2-jkklvshsrcw me asurementOrdered By: Andry Morales on 06-17-2024 Alpha 1 antitrypsin [Mass/Vol] 126 mg/dL 101-187 [facility] Serum globulin measurement b y calculation (mass/volume)Ordered By: Andry Morales on 06-17-2024 Globulin (S) [Mass/Vol] 4.0 g/dL Normal [facility] Comment on above: Performed By: #### H AABT, MITOM2, HCV RX PCR, HBSAB, CERULOP, IGG, L-K MICRO, HEMOCHROM, HBCAB, ALPHA PHEN, HCBIGM, POLO, SMAB, HBSAG, HAAB, AFPTM #### [facility] , #### JAS, PT, CMP #### [facility] [address] Serum homogeneous pattern an tinuclear antibody (POLO) titerOrdered By: Andry Morales on 06-17-2024 Homogenous nuclear Ab pattern (S) [Titer] N/A [facility] Serum mitochondria M2 IgG an tibody assay (units/volume)Ordered By: [facility] Damian on 06-17-2024 Mitochondria M2 IgG Qn (S) <20.0 Units 0.0-20.0 [facility] Comment on above: Negative 0.0 - 20.0 Equivocal 20.1 - 24.9 Positive >24.9Mitochondrial (M2) Antibodies are found in 90-96% ofpatients with primary biliary cirrhosis.Performed at: [facility]nf[facility] [place] [id number] Director: Alonzo Haro PhD, Phone: [phone] Serum nuclear antibody titer Ordered By: HauteLookantonia Morales on 06-17-2024 Nuclear Ab (S) [Titer] Negative . [facility] Comment on above: Negative <1:80 Borde rline 1:80 Positive >1:80ICAP nomenclature: AC-0For more information about Hep-2 cell patterns useANApatterns.org, the official website for theInternational Consensus on Antinuclear Antibody (POLO)Patterns (ICAP).Performed at: [facility] [id number] [place], [place] [id number] Director: Alonzo Haro PhD, Phone: [phone] Serum or plasma albumin/glob ulin mass ratioOrdered By: antonia [facility] Hospitalantonia on 06-17-2024 Albumin/Globulin [Mass ratio] 1.1 {ratio} Normal [facility] Comment on above: Performed By: #### H AABT, MITOM2, HCV RX PCR, HBSAB, CERULOP, IGG, L-K MICRO, HEMOCHROM, HBCAB, ALPHA PHEN, HCBIGM, POLO, SMAB, HBSAG, HAAB, AFPTM #### [facility] , #### JAS, PT, CMP #### [facility] [address] Serum or plasma alpha 1 anti trypsin phenotyping identification by immunofixationOrdered By: Andry Morales on 06-17-2024 Alpha 1 antitrypsin phenotyping Immunofixation Nom Mz . [facility] Comment on above: MM Phenotype is co nsidered to be normal , producingnormal serum levels of xcgup-6-jwijwktg inhibitor andnot associated with clinical disease. Associated K3Ziwvho serum levels in other phenotypes and theirincidence [...] Ranges used to confirm phenotype.Performed at: - [facility] [id number] Director: Alonzo Haro PhD, Phone: [phone] at: [facility] [id number] Director: Rachell Rico MD, Phone: [phone] Serum or plasma qfhzs-6-vqug protein tumor marker measurement (mass/volume)Ordered By: Andry Morales on 06-17-2024 AFP.tumor marker [Mass/Vol] 3.0 ng/mL 0.0-6.4 [facility] Comment on above: [facility] El ectrochemiluminescence Immunoassay(ECLIA)Values obtained with different assay methods or kits cannotbe used interchangeably. Results cannot be interpreted asabsolute evidence of the presence or absence of malignantdisease.This test is not interpretable in females.Performed at: [facility] [id number] Director: Alonzo Haro PhD, Phone: [phone] Serum or plasma anion gap de terminationOrdered By: Andry Morales on 06-17-2024 Anion gap [Moles/Vol] 16.0 mmol/L High 6.0-15.0 [facility] Comment on above: Performed By: #### H AABT, MITOM2, HCV RX PCR, HBSAB, CERULOP, IGG, L-K MICRO, HEMOCHROM, HBCAB, ALPHA PHEN, HCBIGM, POLO, SMAB, HBSAG, HAAB, AFPTM #### [facility] , #### JAS, PT, CMP #### [facility] [address] [place] [address] Serum or plasma ceruloplasmi n measurement (mass/volume)Ordered By: Andry Morales on 06-17-2024 Ceruloplasmin [Mass/Vol] 38.7 mg/dL High 16.0-31.0 [facility] Comment on above: Performed at: [address] [id number] Director: Alonzo Haro PhD, Phone: [phone] Serum or plasma lipoprotein a measurement (moles/volume)Ordered By: Imantonia Morales on 06-17-2024 Lipoprotein a [Moles/Vol] <1.0 Units 0.0-20.0 [facility] Comment on above: Negative 0.0 - 20.0 Equivocal 20.1 - 24.9 Positive >24.9LKM type 1 antibodies are detected in patients withautoimmune hepatitis type 2 and in up to 8% ofpatients with chronic HCV infection.Performed at: [facility] CountyHmuqtu[address] [place], [place] [id number] Director: Alonzo Haro PhD, Phone: [phone] Smooth Muscle Antibodyon Smooth Muscle Antibody 12 Normal 0-19 [facility] Comment on above: Result [...] [facility] , #### JAS, PT, CMP #### [facility] [address] [place] [address] [place] Sodium [Moles/volume] in Ser um or PlasmaOrdered By: Imad Asaad on 06-17-2024 Sodium [Moles/Vol] 139 mmol/L Normal 136-145 [facility] Comment on above: Performed By: #### H AABT, MITOM2, HCV RX PCR, HBSAB, CERULOP, IGG, L-K MICRO, HEMOCHROM, HBCAB, ALPHA PHEN, HCBIGM, POLO, SMAB, HBSAG, HAAB, AFPTM #### [facility] , #### JAS, PT, CMP #### [facility] [address] [place] [address] [place] Urea nitrogen [Mass/volume] in Serum or PlasmaOrdered By: Imad Asaad on 06-17-2024 Urea nitrogen [Mass/Vol] 43 mg/dL High 7-25 [facility] Comment on above: Performed By: #### H AABT, MITOM2, HCV RX PCR, HBSAB, CERULOP, IGG, L-K MICRO, HEMOCHROM, HBCAB, ALPHA PHEN, HCBIGM, POLO, SMAB, HBSAG, HAAB, AFPTM #### [facility] , #### JAS, PT, CMP #### [facility] [address] [place] [address] [place] Erythrocyte distribution wid th Auto (RBC) [Ratio]on 04-26-2024 Erythrocyte distribution width (RBC) [Ratio] 14.4 % 11.0-15.0 [facility] Estimated glomerular filtrat ion rate (GFR) non- Americanon 04-26-2024 GFR/1.73 sq M.predicted among non-blacks MDRD (S/P/Bld) [Vol rate/Area] 38 mL/min/{1.73_m2} Low >=60 [facility] Hematocrit Auto (Bld) [Volum e fraction]on 04-26-2024 Hematocrit (Bld) [Volume fraction] 39.9 % Low 42.0-54.0 [facility] Hemoglobin [Mass/volume] in Bloodon 04-26-2024 Hemoglobin (Bld) [Mass/Vol] 13.3 g/dL Low 14.0-18.0 [facility] Laboratory - Chemistry and C hemistry - challengeon 04-26-2024 Albumin [Mass/Vol] 3.4 g/dL 3.4-5.0 [facility] Calcium [Mass/Vol] 9.4 mg/dL 8.5-10.1 [facility] Chloride [Moles/Vol] 102 mmol/L 98-107 [facility] CO2 [Moles/Vol] 29.1 mmol/L 21.0-32.0 [facility] Creatinine [Mass/Vol] 1.72 mg/dL High 0.70-1.30 [facility] GFR/1.73 sq M.predicted MDRD (S/P/Bld) [Vol rate/Area] 46 mL/min/{1.73_m2} Low >=60 [facility] Glucose [Mass/Vol] 208 mg/dL High 74-106 [facility] Magnesium [Mass/Vol] 1.7 mg/dL Low 1.8-2.4 [facility] Potassium [Moles/Vol] 3.8 mmol/L 3.5-5.1 [facility] Sodium [Moles/Vol] 139 mmol/L 136-145 [facility] Urate [Mass/Vol] 6.7 mg/dL 3.5-7.2 [facility] Urea nitrogen [Mass/Vol] 40.0 mg/dL High 7.0-18.0 [facility] Urea nitrogen/Creatinine [Mass ratio] 23.3 mg/mg [facility] Bilirubin Ql (U) Negative NEGATIVE [facility] Glucose (U) [Mass/Vol] mg/dL Abnormal NEGATIVE [facility] Ketones Ql (U) Negative NEGATIVE [facility] pH (U) 6.0 [pH] 5.0-9.0 [facility] Specific gravity (U) [Rel density] 1.010 1.005-1.025 [facility] Urobilinogen Qn (U) 0.2 {Ric'U}/dL 0.2-1.0 [facility] - Specimen inform ationon 04-26-2024 Appearance (U) CLEAR CLEAR [facility] Color (U) LT. YELLOW YELLOW [facility] - Urinalysison Leukocyte esterase Test strip Ql (U) Negative NEGATIVE [facility] Nitrite Ql (U) Negative NEGATIVE [facility] Protein (U) [Mass/Vol] 9.1 mg/dL <=11.9 [facility] Protein Ql (U) Negative NEG/TRACE [facility] Leukocytes [#/volume] correc benito for nucleated erythrocytes in Blood by Automated counon 04-26-2024 WBC corrected for nucl RBC Auto (Bld) [#/Vol] 6.0 10 3/uL 4.0-11.0 [facility] MCH Auto (RBC) [Entitic mass ]on 04-26-2024 MCH (RBC) [Entitic mass] 33.8 pg 25.9-34.0 [facility] MCHC Auto (RBC) [Mass/Vol]on 04-26-2024 MCHC (RBC) [Mass/Vol] 33.3 g/dL 29.9-35.2 [facility] MCV Auto (RBC) [Entitic vol] on 04-26-2024 MCV (RBC) [Entitic vol] 101.3 fL High 80.0-94.0 [facility] Microalbumin [Mass/volume] i n Urineon 04-26-2024 Albumin DL <= 20 mg/L (U) [Mass/Vol] mg/dL <=30.0 [facility] No Panel Informationon 04-26 25-Hydroxy Vitamin D Total 37.6 ng/mL [facility] Comment on above: <20 ng/mL Vit D defi cient20-<30 ng/mL Vit D [id number] ng/mL Vit D sufficient>100 ng/mL Potential Toxicity Parathyroid Hormone (Intact) 78 pg/mL Abnormal 15-65 [facility] Comment on above: Performed at: - [address] [id number] Director: Alonzo Haro PhD, Phone: [phone] Phosphorus Level 3.6 mg/dL 2.6-4.7 [facility] Urine Occult Blood Negative NEGATIVE [facility] Urine Random Creatinine <13.00 mg/dL Low 20.00-300.00 [facility] Platelet mean volume Auto (B ld) [Entitic vol]on 04-26-2024 Platelet mean volume (Bld) [Entitic vol] 10.6 fL 9.5-13.5 [facility] Platelets Auto (Bld) [#/Vol] on 04-26-2024 Platelets (Bld) [#/Vol] 131 10 3/uL Low 150-450 [facility] RBC Auto (Bld) [#/Vol]on RBC (Bld) [#/Vol] 3.94 10 6/uL Low 4.70-6.10 [facility] Serum or plasma anion gap de terminationon 04-26-2024 Anion gap [Moles/Vol] 11.7 mmol/L [facility] BASIC METABOLIC PANLon 02-11 Anion gap [Moles/Vol] 10 mmol/L Normal 5-15 [facility] Comment on above: Performed By: #### C CARLA, BMP #### [facility] ([id number]) [address] [place] [address] Calcium [Mass/Vol] 8.8 mg/dL Normal 8.5-10.5 [facility] Comment on above: Performed By: #### C BCA, BMP #### [facility] ([id number]) [address], [address] [place] [address] Chloride [Moles/Vol] 103 mmol/L Normal 98-109 [facility] Comment on above: Performed By: #### C BCA, BMP #### [facility] ([id number]) [address], [address] [place] [address] CO2 [Moles/Vol] 24 mmol/L Normal 22-32 [facility] Comment on above: Performed By: #### C BCA, BMP #### [facility] ([id number]) [address] [address] [place] [address] Creatinine [Mass/Vol] 1.14 mg/dL Normal 0.60-1.30 [facility] Comment on above: Result Comment: METH OD TRACEABLE TO IDMS STANDARD Performed By: #### C BCA, BMP #### [facility] ([id number]) [address] [place] [address] GFR/1.73 sq M.predicted among non-blacks MDRD (S/P/Bld) [Vol rate/Area] 62 mL/min/{1.73_m2} Normal >59 [facility] Comment on above: Result Comment: Reported eGFR is based on the CKD-EPI 2020 equation that does not use a race coefficient. Performed By: #### C BCA, BMP #### [facility] ([id number]) [address] [address] [place] [address] Glucose [Mass/Vol] 155 mg/dL High 65-99 [facility] Comment on above: Performed By: #### C BCA, BMP #### [facility] ([id number]) [address], [address] [place] [address] Potassium [Moles/Vol] 3.9 mmol/L Normal 3.5-5.0 [facility] Comment on above: Performed By: #### C BCA, BMP #### [facility] ([id number]) [address], [address] [place] [address] Sodium [Moles/Vol] 137 mmol/L Normal 134-146 [facility] Comment on above: Performed By: #### C CARLA, BMP #### [facility] ([id number]) [address], [address] [place] [address] Urea nitrogen [Mass/Vol] 27 mg/dL Normal 5-27 [facility] Comment on above: Performed By: #### C CARLA, BMP #### [facility] ([id number]) [address] [place] [address] CBC AND AUTO DIFFon 02-12-20 24 ABSOLUTE BASOPHIL 0.0 X10E9/L Normal 0.0-0.2 [facility] Comment on above: Performed By: #### Malik AGUIRRE, BMP #### [facility] ([id number]) [address] [place] [address] ABSOLUTE NEUTROPHIL 5.2 X10E9/L Normal 1.5-6.6 [facility] Comment on above: Performed By: #### Malik AGUIRRE, BMP #### [facility] ([id number]) [address], [address] [place] [address] Basophils/100 WBC (Bld) 0.2 % Normal [facility] Comment on above: Performed By: #### C CARLA, BMP #### [facility] ([id number]) [address], [address] [place] [address] Eosinophils (Bld) [#/Vol] 0.0 10*3/uL Normal 0.0-0.4 [facility] Comment on above: Performed By: #### Malik AGUIRRE, BMP #### [facility] ([id number]) [address], [address] [place] [address] Eosinophils/100 WBC (Bld) 0.1 % Normal [facility] Comment on above: Performed By: #### C BCA, BMP #### [facility] ([id number]) [address] [place] [address] Erythrocyte distribution width (RBC) [Ratio] 15.0 % Normal 11.5-15.0 [facility] Comment on above: Performed By: #### C BCA, BMP #### [facility] ([id number]) [address], [address] [place] [address] Hematocrit (Bld) [Volume fraction] 34.7 % Low 39-49 [facility] Comment on above: Performed By: #### C BCA, BMP #### [facility] ([id number]) [address], [address] [place] [address] Hemoglobin (Bld) [Mass/Vol] 12.0 g/dL Low 13.0-17.0 [facility] Comment on above: Performed By: #### C BCA, BMP #### [facility] ([id number]) [address], [address] [place] [address] Lymphocytes (Bld) [#/Vol] 0.6 10*3/uL Low 1.0-3.5 [facility] Comment on above: Performed By: #### C BCA, BMP #### [facility] ([id number]) [address], [address] [place] [address] Lymphocytes/100 WBC (Bld) 10.3 % Normal [facility] Comment on above: Performed By: #### C BCA, BMP #### [facility] ([id number]) [address], [address] [place] [address] MCH (RBC) [Entitic mass] 34.0 pg Normal 27-34 [facility] Comment on above: Performed By: #### C BCA, BMP #### [facility] ([id number]) [address], [address] [place] [address] MCHC (RBC) [Mass/Vol] 34.7 g/dL Normal 32-36 [facility] Comment on above: Performed By: #### C CARLA, BMP #### [facility] ([id number]) [address] [place] [address] MCV (RBC) [Entitic vol] 98 fL Normal 80-100 [facility] Comment on above: Performed By: #### C CARLA, BMP #### [facility] ([id number]) [address], [address] [place] [address] Monocytes (Bld) [#/Vol] 0.3 10*3/uL Normal 0-0.9 [facility] Comment on above: Performed By: #### Malik AGUIRRE, BMP #### [facility] ([id number]) [address], [address] [place] [address] Monocytes/100 WBC (Bld) 5.1 % Normal [facility] Comment on above: Performed By: #### C CARLA, BMP #### [facility] ([id number]) [address], [address] [place] [address] Neutrophils/100 WBC (Bld) 84.3 % Normal [facility] Comment on above: Performed By: #### Malik AGUIRRE, BMP #### [facility] ([id number]) [address], [address] [place] [address] Platelet mean volume (Bld) [Entitic vol] 8.3 fL Normal 7-12 [facility] Comment on above: Performed By: #### C CARLA, BMP #### [facility] ([id number]) [address], [address] [place] [address] Platelets (Bld) [#/Vol] 111 10*3/uL Low 150-450 [facility] Comment on above: Performed By: #### C CARLA, BMP #### [facility] ([id number]) [address] [place] [address] RBC COUNT 3.53 X10E12/L Low 4.10-5.70 [facility] Comment on above: Performed By: #### C BCA, BMP #### [facility] ([id number]) [address] [place] [address] WBC (Bld) [#/Vol] 6.1 10*3/uL Normal 4.0-11.0 [facility] Comment on above: Performed By: #### C CARLA, BMP #### [facility] ([id number]) [address], [address] [place] [address] Calcium.ionized (Bld) [Mass/ Vol]on 02-12-2024 IONIZED CALCIUM 4.8 mg/dL Normal 4.5-5.3 [facility] Comment on above: Performed By: #### 3 8230-9, 05706-3 #### [facility] ([id number]) [address] [place] [address] Magnesium Ionized ISE (Bld) [Moles/Vol]on 02-12-2024 Magnesium [Moles/Vol] 0.51 mmol/L Normal 0.45-0.74 [facility] Comment on above: Result Comment: NEW REFERENCE RANGE Performed By: #### 3 8230-9, 74083-0 #### [facility] ([id number]) [address] [place] [address] CBC AND AUTO DIFFon 02-11-20 ABSOLUTE BASOPHIL 0.0 X10E9/L Normal 0.0-0.2 [facility] Comment on above: Performed By: #### C BCA #### [facility] ([id number]) [address], [address] [place] [address] ABSOLUTE NEUTROPHIL 5.1 X10E9/L Normal 1.5-6.6 [facility] Comment on above: Performed By: #### C BCA #### [facility] ([id number]) [address], [address] [place] [address] Basophils/100 WBC (Bld) 0.5 % Normal [facility] Comment on above: Performed By: #### C BCA #### [facility] ([id number]) [address] [place] [address] Eosinophils (Bld) [#/Vol] 0.2 10*3/uL Normal 0.0-0.4 [facility] Comment on above: Performed By: #### C BCA #### [facility] ([id number]) [address], [address] [place] [address] Eosinophils/100 WBC (Bld) 3.2 % Normal [facility] Comment on above: Performed By: #### C BCA #### [facility] ([id number]) [address], [address] [place] [address] Erythrocyte distribution width (RBC) [Ratio] 15.0 % Normal 11.5-15.0 [facility] Comment on above: Performed By: #### C BCA #### [facility] ([id number]) [address] [place] [address] Hematocrit (Bld) [Volume fraction] 36.0 % Low 39-49 [facility] Comment on above: Performed By: #### C BCA #### [facility] ([id number]) [address], [address] [place] [address] Hemoglobin (Bld) [Mass/Vol] 12.1 g/dL Low 13.0-17.0 [facility] Comment on above: Performed By: #### C BCA #### [facility] ([id number]) [address], [address] [place] [address] Lymphocytes (Bld) [#/Vol] 0.9 10*3/uL Low 1.0-3.5 [facility] Comment on above: Performed By: #### C BCA #### [facility] ([id number]) [address] [place] [address] Lymphocytes/100 WBC (Bld) 13.4 % Normal [facility] Comment on above: Performed By: #### C BCA #### [facility] ([id number]) [address], [address] [place] [address] MCH (RBC) [Entitic mass] 33.3 pg Normal 27-34 [facility] Comment on above: Performed By: #### C BCA #### [facility] ([id number]) [address], [address] [place] [address] MCHC (RBC) [Mass/Vol] 33.5 g/dL Normal 32-36 [facility] Comment on above: Performed By: #### C BCA #### [facility] ([id number]) [address] [place] [address] MCV (RBC) [Entitic vol] 100 fL Normal 80-100 [facility] Comment on above: Performed By: #### C BCA #### [facility] ([id number]) [address] [place] [address] Monocytes (Bld) [#/Vol] 0.2 10*3/uL Normal 0-0.9 [facility] Comment on above: Performed By: #### C BCA #### [facility] ([id number]) [address], [address] [place] [address] Monocytes/100 WBC (Bld) 3.0 % Normal [facility] Comment on above: Performed By: #### C BCA #### [facility] ([id number]) [address] [place] [address] Neutrophils/100 WBC (Bld) 79.9 % Normal [facility] Comment on above: Performed By: #### C BCA #### [facility] ([id number]) [address], [address] [place] [address] Platelet mean volume (Bld) [Entitic vol] 8.6 fL Normal 7-12 [facility] Comment on above: Performed By: #### C BCA #### [facility] ([id number]) [address] [place] [address] Platelets (Bld) [#/Vol] 117 10*3/uL Low 150-450 [facility] Comment on above: Performed By: #### C BCA #### [facility] ([id number]) [address] [address] [place] [address] RBC COUNT 3.62 X10E12/L Low 4.10-5.70 [facility] Comment on above: Performed By: #### C BCA #### [facility] ([id number]) [address] [address] [place] [address] WBC (Bld) [#/Vol] 6.4 10*3/uL Normal 4.0-11.0 [facility] Comment on above: Performed By: #### C BCA #### [facility] ([id number]) [address] [address] [place] [address] Glucose Glucometer (BldC) [M ass/Vol]on 02-11-2024 Glucose [Mass/Vol] 179 mg/dL High 65-99 [facility] Magnesium Ionized ISE (Bld) [Moles/Vol]on 02-11-2024 Magnesium [Moles/Vol] 0.47 mmol/L Normal 0.45-0.74 [facility] Comment on above: Result Comment: NEW REFERENCE RANGE Performed By: #### 7 3572-0 #### [facility] ([id number]) [address] [address] [place] [address] Glucose Glucometer (BldC) [M ass/Vol]on 01-27-2024 Glucose [Mass/Vol] 203 mg/dL High 65-99 [facility] 36on 12-25-2023 36 Patient needs upcomi ng CEA with Dr. Enciso and he is requesting clearance. Does patient need stress test prior or are you able to clear him? Please advise. Thank you. Normal [facility] Office Visiton 11-03-2023 Follow-up visit [id number] Milton Henderson 1935 M Date Provider Department Center 11/03/2023 Garrick-JAIDEN JONES CARD [facility] Family History Problem Relation Age of Onset No Known Problems Mother No Known Problems Father Family Status - Relation Status Age at Mother Father Level of Service:74735 MS OFFICE/OUTPATIENT ESTABLISHED LOW MDM 20 MIN Normal [facility] PTH INTACTon 02-12-2023 PTH, Intact 28 pg/mL Normal 15-65 [facility] Comment on above: Performed By: #### B MP, BNP #### [facility] [address] [place] [address] Dr. Mary Kay Vaca FERRITINon 02-11-2023 Ferritin [Mass/Vol] 685.0 ng/mL Critically high 26.0-388.0 [facility] Comment on above: Performed By: #### B MP, BNP #### [facility] [address] [address] [address] Mary Kay Vaca HEMOGRAM AND PLATELon 2022 Hematocrit (Bld) [Volume fraction] 37.8 % Critically low 42.0-54.0 [facility] Comment on above: Performed By: #### R ENAL, LIPID #### [facility] [address] [place] [address] Dr. Mary Kay Vaca Hemoglobin (Bld) [Mass/Vol] 12.8 g/dL Critically low 14.0-18.0 [facility] Comment on above: Performed By: #### R ENAL, LIPID #### [facility] [address] [place] [address] Dr. Mary Kay Vaca MCH (RBC) [Entitic mass] 32.5 pg Normal 25.9-34.0 [facility] Comment on above: Performed By: #### R ENAL, LIPID #### [facility] [address] [place] [address] Dr. Mary Kay Vaca MCHC (RBC) [Mass/Vol] 33.9 g/dL Normal 29.9-35.2 [facility] Comment on above: Performed By: #### R ENAL, LIPID #### [facility] [address] [place] [address] Dr. Mary Kay Vaca MCV (RBC) [Entitic vol] 95.9 fL Critically high 80.0-94.0 [facility] Comment on above: Performed By: #### R ENDIMAS, LIPID #### [facility] [address] [place] [address] Dr. Mary Kay Vaca PLT 163 103/ul Normal 150-450 [facility] Comment on above: Performed By: #### R ENAL, LIPID #### [facility] [address] [place] [address] Dr. Mary Kay Vaca RBC 3.94 106/ul Critically low 4.70-6.10 [facility] Comment on above: Performed By: #### R ENDIMAS, LIPID #### [facility] [address] [place] [address] Dr. Mary Kay Vaca WBC 6.3 103/ul Normal 4.0-11.0 [facility] Comment on above: Performed By: #### R ENAL, LIPID #### [facility] [address] [place] [address] Dr. Mary Kay Vaca IRON AND TIBCon 02-11-2023 % SATURATION 40.8 % Normal [facility] Comment on above: Performed By: #### B MP, BNP #### [facility] [address] [place] [address] Dr. Mary Kay Vaca Iron [Mass/Vol] 127.0 ug/dL Normal 65.0-175.0 [facility] Comment on above: Performed By: #### B MP, BNP #### [facility] [address] [place] [address] Dr. Mary Kay Vaca TIBC DIRECT 311.0 ug/dL Normal 250.0-450.0 [facility] Comment on above: Performed By: #### B MP, BNP #### [facility] [address] [place] [address] Dr. Mary Kay Vaca MAGNESIUMon 02-11-2023 Magnesium [Mass/Vol] 1.7 mg/dL Critically low 1.8-2.4 [facility] Comment on above: Performed By: #### R ENAL, LIPID #### [facility] [address] [place] [address] Dr. Mary Kay Vaca PHOSPHORUSon 02-11-2023 Phosphate [Mass/Vol] 3.1 mg/dL Normal 2.6-4.7 [facility] Comment on above: Performed By: #### R ENAL, LIPID #### [facility] [address] [place] [address] Dr. Mary Kay Vaca PROF 14(COMP METB)on 023 Albumin [Mass/Vol] 3.7 g/dL Normal 3.4-5.0 [facility] Comment on above: Performed By: #### R ENAL, LIPID #### [facility] [address] [place] [address] Dr. Mary Kay Vaca Albumin/Globulin [Mass ratio] 0.8 {ratio} Normal [facility] Comment on above: Performed By: #### R ENAL, LIPID #### [facility] [address] [place] [address] Dr. Mary Kay Vaca ALP [Catalytic activity/Vol] 178 U/L Critically high 46-116 [facility] Comment on above: Performed By: #### R ENAL, LIPID #### [facility] [address] [place] [address] Dr. Mary Kay Vaca ALT [Catalytic activity/Vol] 72 U/L Critically high 16-63 [facility] Comment on above: Performed By: #### R ENAL, LIPID #### [facility] [address] [place] [address] Dr. Mary Kay Vaca Anion gap [Moles/Vol] 16.6 mmol/L Normal [facility] Comment on above: Performed By: #### R ENAL, LIPID #### [facility] [address] [place] [address] Dr. Mary Kay Vaca AST [Catalytic activity/Vol] 53 U/L Critically high 15-37 [facility] Comment on above: Performed By: #### R ENAL, LIPID #### [facility] [address] [place] [address] Dr. Mary Kay Vaca Bilirubin [Mass/Vol] 0.5 mg/dL Normal 0.2-1.0 [facility] Comment on above: Performed By: #### R ENAL, LIPID #### [facility] [address] [place] [address] Dr. Mary Kay Vaca Calcium [Mass/Vol] 9.4 mg/dL Normal 8.5-10.1 [facility] Comment on above: Performed By: #### R ENAL, LIPID #### [facility] [address] [place] [address] Dr. Mary Kay Vaca Chloride [Moles/Vol] 102 mmol/L Normal 98-107 [facility] Comment on above: Performed By: #### R ENAL, LIPID #### [facility] [address] [place] [address] Dr. Mary Kay Vaca CO2 [Moles/Vol] 26.6 mmol/L Normal 21.0-32.0 [facility] Comment on above: Performed By: #### R ENAL, LIPID #### [facility] [address] [place] [address] Dr. Mary Kay Vaca Creatinine [Mass/Vol] 1.72 mg/dL Critically high 0.70-1.30 [facility] Comment on above: Performed By: #### R ENAL, LIPID #### [facility] [address] [place] [address] Dr. Mary Kay Vaca EGFR-AF [place] 46 mL/min/1.73m2 Critically low >=60 [facility] Comment on above: Performed By: #### R ENAL, LIPID #### [facility] [address] [place] [address] Dr. Mary Kay Vaca EGFR-NON AF [place] 38 mL/min/1.73m2 Critically low >=60 [facility] Comment on above: Performed By: #### R ENAL, LIPID #### [facility] [address] [address] [address] Mary Kay Vaca Globulin (S) [Mass/Vol] 4.9 g/dL Normal [facility] Comment on above: Performed By: #### R ENAL, LIPID #### [facility] [address] [address] [address] Mary Kay Vaca Glucose [Mass/Vol] 205 mg/dL Critically high 74-106 [facility] Comment on above: Performed By: #### R ENAL, LIPID #### [facility] [address] [place] [address] Dr. Mary Kay Vaca Potassium [Moles/Vol] 4.2 mmol/L Normal 3.5-5.1 [facility] Comment on above: Performed By: #### R ENAL, LIPID #### [facility] [address] [place] [address] Dr. Mary Kay Vaca Protein [Mass/Vol] 8.6 g/dL Critically high 6.4-8.2 [facility] Comment on above: Performed By: #### R ENAL, LIPID #### [facility] [address] [place] [address] Dr. Mary Kay Vaca Sodium [Moles/Vol] 141 mmol/L Normal 136-145 [facility] Comment on above: Performed By: #### R ENAL, LIPID #### [facility] [address] [place] [address] Dr. Mary Kay Vaca Urea nitrogen [Mass/Vol] 36.0 mg/dL Critically high 7.0-18.0 [facility] Comment on above: Performed By: #### R ENAL, LIPID #### [facility] [address] [place] [address] Dr. Mary Kay Vaca Urea nitrogen/Creatinine [Mass ratio] 20.9 mg/mg Normal [facility] Comment on above: Performed By: #### R ENAL, LIPID #### [facility] [address] [place] [address] Dr. Mary Kay Vaca UA RANDOMon 02-11-2023 Bilirubin Ql (U) Negative Normal NEGATIVE [facility] Comment on above: Performed By: #### U A #### [facility] [address] [place] [address] Dr. Mary Kay Vaca Clarity (U) CLEAR Normal CLEAR [facility] Comment on above: Performed By: #### U A #### [facility] [address] [place] [address] Dr. Mary Kay Vaca Color (U) LT. YELLOW Normal YELLOW [facility] Comment on above: Performed By: #### U A #### [facility] [address] [place] [address] Dr. Mary Kay Vaca Glucose Ql (U) Negative Normal NEGATIVE [facility] Comment on above: Performed By: #### U A #### [facility] [address] [place] [address] Dr. Mary Kay Vaca Hemoglobin Ql (U) Negative Normal NEGATIVE [facility] Comment on above: Performed By: #### U A #### [facility] [address] [place] [address] Dr. Mary Kay Vaca Ketones Ql (U) Negative Normal NEGATIVE [facility] Comment on above: Performed By: #### U A #### [facility] [address] [place] [address] Dr. Mary Kay Vaca LEUKOCYTES Negative Normal NEGATIVE [facility] Comment on above: Performed By: #### U A #### [facility] [address] [place] [address] Dr. Mary Kay Vaca Nitrite Ql (U) Negative Normal NEGATIVE [facility] Comment on above: Performed By: #### U A #### [facility] [address] [place] [address] Dr. Mary Kay Vaca pH (U) 6.0 [pH] Normal 5-9 [facility] Comment on above: Performed By: #### U A #### [facility] [address] [place] [address] Dr. Mary Kay Vaca SPEC GRAVITY 1.010 Normal 1.005-<=1.02 5 [facility] Comment on above: Performed By: #### U A #### [facility] [address] [place] [address] Dr. Mary Kay Vaca UA PROTEIN Negative Normal NEGATIVE/ TRACE [facility] Comment on above: Performed By: #### U A #### [facility] [address] [place] [address] Dr. Mary Kay Vaca Urobilinogen Qn (U) 0.2 {Ric'U}/dL Normal 0.2 - 1. 0 [facility] Comment on above: Performed By: #### U A #### [facility] [place] [facility] [address] [place] [address] Dr. Mary Kay Vaca URIC ACID SERUMon 02-11-2023 Urate [Mass/Vol] 5.7 mg/dL Normal 3.5-7.2 [facility] Comment on above: Performed By: #### R ENAL, LIPID #### [facility] [place] [facility] [address] [place] [address] Dr. Mary Kay Vaca URINE T PROTEIN CREAT RATIOo n 02-11-2023 UR TOTAL PROTEIN <6.0 Normal <=12.0 [facility] Comment on above: Performed By: #### B MP, BNP #### [facility] [place] [facility] [address] [place] [address] Dr. Mary Kay Vaca URINE CREAT <13.00 Critically low 20.00-300.00 [facility] Comment on above: Performed By: #### B MP, BNP #### [facility] [place] [facility] [address] [place] [address] Dr. Mary Kay Vaca VITAMIN D 25 OHon 02-11-2023 VIT D 25-OH 35.9 ng/mL Normal [facility] [place] [facility] Comment on above: Performed By: #### B MP, BNP #### [facility] [place] [facility] [address] [place] [address] Dr. Mary Kay Vaca VIT D RANGES SEE BELOW Normal [facility] [place] [facility] Comment on above: Result Comment: <20 ng/mL Vit D deficient 20 - <30 ng/mL Vit D insufficient 30 - 100 ng/mL Vit D sufficient >100 ng/mL Potential Toxicity Performed By: #### B MP, BNP #### [facility] [place] [facility] [address] [address] [address] Mary Kay Vaca C-PEPTIDE, SERUMon C-Peptide, Serum 9.0 ng/mL Critically high 1.1-4.4 [facility] Comment on above: Result Comment: C-Pe ptide reference interval is for fasting patients. Performed By: #### B MP, BNP #### [facility] [place] [facility] [address] [address] [address] Mary Kay Vaca LIPID PROFILEon 12-23-2022 CHOL-HDL RATIO NORM SEE BELOW Normal [facility] Comment on above: Result Comment: 3.3 - 4.4 LOW RISK 4.4 - 7.1 AVERAGE RISK 7.1 - 11.0 MODERATE RISK >11.0 HIGH RISK Performed By: #### R ENAL, LIPID #### [facility] [place] [facility] [address] [address] [address] Mary Kay Vaca Cholesterol [Mass/Vol] 174 mg/dL Normal <=[address] [facility] Comment on above: Performed By: #### R ENAL, LIPID #### [facility] [place] [facility] [address] [address] [address] Mary Kay Vaca Cholesterol in HDL [Mass/Vol] 61 mg/dL Critically high 40-60 [facility] Comment on above: Performed By: #### R ENAL, LIPID #### [facility] [place] [facility] [address] [address] [address] Mary Kay Vaca Cholesterol in LDL [Mass/Vol] 87.0 mg/dL Normal [facility] Comment on above: Performed By: #### R ENAL, LIPID #### [facility] [place] [facility] [address] [address] [address] Mary Kay Vaca Cholesterol.total/Chol esterol in HDL [Mass ratio] 2.9 {ratio} Normal [facility] Comment on above: Performed By: #### R ENAL, LIPID #### [facility] [place] [facility] [address] [address] [address] Mary Kay Vaca HDL NORMAL > or = 60 mg/dl - LO W CARDIOVASCULAR RISK <40 mg/dl - HIGH CARDIOVASCULAR RISK Normal [facility] [place] [facility] Comment on above: Performed By: #### R ENAL, LIPID #### [facility] [place] [facility] [address] [place] [address] Dr. Mary Kay Vaca LDL CALC NORMAL SEE BELOW Normal [facility] [place] [facility] Comment on above: Result Comment: <100 mg/dl OPTIMAL 100 - 129 mg/dl NEAR OR ABOVE OPTIMAL 130 - 159 mg/dl BORDERLINE HIGH 160 - 189 mg/dl HIGH >190 mg/dl VERY HIGH Performed By: #### R ENAL, LIPID #### [facility] [place] [facility] [address] [place] [address] Dr. Mary Kay Vaca Triglyceride [Mass/Vol] 130 mg/dL Normal <=150 [facility] [place] [facility] Comment on above: Performed By: #### R ENAL, LIPID #### [facility] [place] [facility] [address] [place] [address] Dr. Mary Kay Vaca VLDL CALC 26.0 mg/dL Normal [facility] [place] [facility] Comment on above: Performed By: #### R ENAL, LIPID #### [facility] [place] [facility] [address] [place] [address] Dr. Mary Kay Vaca MICROALB CREAT RATIO RANDOMo n 12-23-2022 mALB 2.2 mg/L Normal <=30.0 [facility] [place] [facility] Comment on above: Performed By: #### B MP, BNP #### [facility] [place] [facility] [address] [place] [address] Dr. Mary Kay Vaca MALB CR RATIO RANGE SEE BELOW Normal [facility] [place] [facility] Comment on above: Result Comment: NO M ICROALBUMINURIA 0-29 MG/G CLINICAL MICROALBUMINURIA 30-300 MG/G MACROALBUMINURIA >300 MG/G Performed By: #### B MP, BNP #### [facility] [place] [facility] [address] [place] [address] Dr. Mary Kay Vaca URINE CREAT <13.00 Critically low 20.00-300.00 [facility] Comment on above: Performed By: #### B MP, BNP #### [facility] [place] [facility] [address] [place] [address] Dr. Mary Kay Vaca RENAL FUNCTION PANELon 12-23 Albumin [Mass/Vol] 3.7 g/dL Normal 3.4-5.0 [facility] Comment on above: Performed By: #### R ENAL, LIPID #### [facility] [place] [facility] [address] [place] [address] Dr. Mary Kay Vaca Calcium [Mass/Vol] 9.4 mg/dL Normal 8.5-10.1 [facility] Comment on above: Performed By: #### R ENAL, LIPID #### [facility] [place] [facility] [address] [place] [address] Dr. Mary Kay Vaca Chloride [Moles/Vol] 107 mmol/L Normal 98-107 [facility] Comment on above: Performed By: #### R ENAL, LIPID #### [facility] [place] [facility] [address] [place] [address] Dr. Mary Kay Vaca CO2 [Moles/Vol] 27.0 mmol/L Normal 21.0-32.0 [facility] Comment on above: Performed By: #### R ENAL, LIPID #### [facility] [place] [facility] [address] [place] [address] Dr. Mary Kay Vaca Creatinine [Mass/Vol] 1.46 mg/dL Critically high 0.70-1.30 [facility] Comment on above: Performed By: #### R ENAL, LIPID #### [facility] [place] [facility] [address] [place] [address] Dr. Mary Kay Vaca EGFR-AF [place] 55 mL/min/1.73m2 Critically low >=60 [facility] Comment on above: Performed By: #### R ENAL, LIPID #### [facility] [place] [facility] [address] [place] [address] Dr. Mary Kay Vaca EGFR-NON AF [place] 46 mL/min/1.73m2 Critically low >=60 [facility] Comment on above: Performed By: #### R ENAL, LIPID #### [facility] [place] [facility] [address] [place] [address] Dr. Mary Kay Vaca Glucose [Mass/Vol] 163 mg/dL Critically high 74-106 [facility] Comment on above: Performed By: #### R ENAL, LIPID #### [facility] [place] [facility] [address] [place] [address] Dr. Mary Kay Vaca Phosphate [Mass/Vol] 2.6 mg/dL Normal 2.6-4.7 [facility] Comment on above: Performed By: #### R ENAL, LIPID #### [facility] [place] [facility] [address] [address] [address] Mary Kay Vaca Potassium [Moles/Vol] 4.0 mmol/L Normal 3.5-5.1 [facility] Comment on above: Performed By: #### R ENAL, LIPID #### [facility] [place] [facility] [address] [place] [address] Dr. Mary Kay Vaca Sodium [Moles/Vol] 145 mmol/L Normal 136-145 [facility] Comment on above: Performed By: #### R ENAL, LIPID #### [facility] [place] [facility] [address] [place] [address] Dr. Mary Kay Vaca Urea nitrogen [Mass/Vol] 32.0 mg/dL Critically high 7.0-18.0 [facility] Comment on above: Performed By: #### R ENAL, LIPID #### [facility] [place] [facility] [address] [place] [address] Dr. Mary Kay Vaca MAGNESIUMon 11-11-2022 Magnesium [Mass/Vol] 1.4 mg/dL Critically low 1.8-2.4 [facility] Comment on above: Performed By: #### R ENDIMAS, LIPID #### [facility] [place] [facility] [address] [place] [address] Dr. Mary Kay Vaca PROF CHEM 8 (BAS METB)on Anion gap [Moles/Vol] 13.7 mmol/L Normal [facility] Comment on above: Performed By: #### R ENAL, LIPID #### [facility] [place] [facility] [address] [place] [address] Dr. Mary Kay Vaca Calcium [Mass/Vol] 9.8 mg/dL Normal 8.5-10.1 [facility] [place] [facility] Comment on above: Performed By: #### R ENAL, LIPID #### [facility] [place] [facility] [address] [place] [address] Dr. Mary Kay Vaca Chloride [Moles/Vol] 105 mmol/L Normal 98-107 [facility] [place] [facility] Comment on above: Performed By: #### R ENAL, LIPID #### [facility] [place] [facility] [address] [address] [address] Mary Kay Vaca CO2 [Moles/Vol] 27.2 mmol/L Normal 21.0-32.0 [facility] Comment on above: Performed By: #### R ENAL, LIPID #### [facility] [place] [facility] [address] [place] [address] Dr. Mary Kay Vaca Creatinine [Mass/Vol] 1.45 mg/dL Critically high 0.70-1.30 [facility] Comment on above: Performed By: #### R ENAL, LIPID #### [facility] [place] [facility] [address] [place] [address] Dr. Mary Kay Vaca EGFR-AF [place] 56 mL/min/1.73m2 Critically low >=60 [facility] Comment on above: Performed By: #### R ENAL, LIPID #### [facility] [place] [facility] [address] [place] [address] Dr. Mary Kay Vaca EGFR-NON AF [place] 46 mL/min/1.73m2 Critically low >=60 [facility] Comment on above: Performed By: #### R ENAL, LIPID #### [facility] [place] [facility] [address] [place] [address] Dr. Mary Kay Vaca Glucose [Mass/Vol] 234 mg/dL Critically high 74-106 [facility] Comment on above: Performed By: #### R ENAL, LIPID #### [facility] [place] [facility] [address] [place] [address] Dr. Mary Kay Vaca Potassium [Moles/Vol] 3.9 mmol/L Normal 3.5-5.1 [facility] [place] [facility] Comment on above: Performed By: #### R ENAL, LIPID #### [facility] [place] [facility] [address] [place] [address] Dr. Mary Kay Vaca Sodium [Moles/Vol] 142 mmol/L Normal 136-145 [facility] Comment on above: Performed By: #### R ENAL, LIPID #### [facility] [place] [facility] [address] [place] [address] Dr. Mary Kay Vaca Urea nitrogen [Mass/Vol] 38.0 mg/dL Critically high 7.0-18.0 [facility] Comment on above: Performed By: #### R ENAL, LIPID #### [facility] [place] [facility] [address] [place] [address] Dr. Mary Kay Vaca Urea nitrogen/Creatinine [Mass ratio] 26.2 mg/mg Normal [facility] Comment on above: Performed By: #### R ENAL, LIPID #### [facility] [place] [facility] [address] [address] [address] Mary Kay Vaca PTH INTACTon 09-18-2022 PTH, Intact 39 pg/mL Normal 15-65 [facility] Comment on above: Performed By: #### R ENDIMAS, LIPID #### [facility] [place] [facility] [address] [place] [address] Dr. Mary Kay Vaca FERRITINon 09-17-2022 Ferritin [Mass/Vol] 703.0 ng/mL Critically high 26.0-388.0 [facility] Comment on above: Performed By: #### B MP, BNP #### [facility] [place] [facility] [address] [place] [address] Dr. Mary Kay Vaca HEMOGRAM AND PLATELon 2022 Hematocrit (Bld) [Volume fraction] 37.2 % Critically low 42.0-54.0 [facility] Comment on above: Performed By: #### R ENDIMAS, LIPID #### [facility] [place] [facility] [address] [place] [address] Dr. Mary Kay Vaca Hemoglobin (Bld) [Mass/Vol] 12.6 g/dL Critically low 14.0-18.0 [facility] Comment on above: Performed By: #### R ENAL, LIPID #### [facility] [place] [facility] [address] [place] [address] Dr. Mary Kay Vaca MCH (RBC) [Entitic mass] 32.7 pg Normal 25.9-34.0 [facility] Comment on above: Performed By: #### R ENAL, LIPID #### [facility] [place] [facility] [address] [place] [address] Dr. Mayr Kay Vaca MCHC (RBC) [Mass/Vol] 33.9 g/dL Normal 29.9-35.2 [facility] Comment on above: Performed By: #### R ENAL, LIPID #### [facility] [place] [facility] [address] [place] [address] Dr. Mary Kay Vaca MCV (RBC) [Entitic vol] 96.6 fL Critically high 80.0-94.0 [facility] Comment on above: Performed By: #### R ENAL, LIPID #### [facility] [place] [facility] [address] [place] [address] Dr. Mary Kay Vaca PLT 172 103/ul Normal 150-450 [facility] Comment on above: Performed By: #### R ENAL, LIPID #### [facility] [place] [facility] [address] [place] [address] Dr. Mary Kay Vaca RBC 3.85 106/ul Critically low 4.70-6.10 [facility] Comment on above: Performed By: #### R ENAL, LIPID #### [facility] [place] [facility] [address] [place] [address] Dr. Mary Kay Vaca WBC 6.8 103/ul Normal 4.0-11.0 [facility] Comment on above: Performed By: #### R ENAL, LIPID #### [facility] [place] [facility] [address] [place] [address] Dr. Mary Kay Vaca IRON AND TIBCon 09-17-2022 % SATURATION 38.9 % Normal [facility] Comment on above: Performed By: #### B MP, BNP #### [facility] [place] [facility] [address] [place] [address] Dr. Mary Kay Vaca Iron [Mass/Vol] 121.0 ug/dL Normal 65.0-175.0 [facility] [place] [facility] Comment on above: Performed By: #### B MP, BNP #### [facility] [place] [facility] [address] [place] [address] Dr. Mary Kay Vaca TIBC DIRECT 311.0 ug/dL Normal 250.0-450.0 [facility] Comment on above: Performed By: #### B MP, BNP #### [facility] [place] [facility] [address] [place] [address] Dr. Mary Kay Vaca MAGNESIUMon 09-17-2022 Magnesium [Mass/Vol] 1.6 mg/dL Critically low 1.8-2.4 [facility] Comment on above: Performed By: #### C MP, MG, URIC #### [facility] [place] [facility] [address] [place] [address] Dr. Mary Kay Vaca PROF 14(COMP METB)on 023 Albumin [Mass/Vol] 4.0 g/dL Normal 3.4-5.0 [facility] Comment on above: Performed By: #### C MP, MG, URIC #### [facility] [place] [facility] [address] [place] [address] Dr. Mary Kay Vaca Albumin/Globulin [Mass ratio] 0.9 {ratio} Normal [facility] Comment on above: Performed By: #### C MP, MG, URIC #### [facility] [place] [facility] [address] [place] [address] Dr. Mary Kay Vaca ALP [Catalytic activity/Vol] 164 U/L Critically high 46-116 [facility] Comment on above: Performed By: #### C MP, MG, URIC #### [facility] [place] [facility] [address] [place] [address] Dr. Mary Kay Vaca ALT [Catalytic activity/Vol] 82 U/L Critically high 16-63 [facility] Comment on above: Performed By: #### C MP, MG, URIC #### [facility] [place] [facility] [address] [place] [address] Dr. Mary Kay Vaca Anion gap [Moles/Vol] 12.7 mmol/L Normal [facility] Comment on above: Performed By: #### C MP, MG, URIC #### [facility] [place] [facility] [address] [place] [address] Dr. Mary Kay Vaca AST [Catalytic activity/Vol] 61 U/L Critically high 15-37 [facility] Comment on above: Performed By: #### C MP, MG, URIC #### [facility] [place] [facility] [address] [place] [address] Dr. Mary Kay Vaca Bilirubin [Mass/Vol] 0.5 mg/dL Normal 0.2-1.0 [facility] Comment on above: Performed By: #### C MP, MG, URIC #### [facility] [place] [facility] [address] [address] [address] Mary Kay Vaca Calcium [Mass/Vol] 9.7 mg/dL Normal 8.5-10.1 [facility] Comment on above: Performed By: #### C MP, MG, URIC #### [facility] [place] [facility] [address] [address] [address] Mary Kay Vaca Chloride [Moles/Vol] 100 mmol/L Normal 98-107 [facility] [place] [facility] Comment on above: Performed By: #### C MP, MG, URIC #### [facility] [place] [facility] [address] [address] [address] Mary Kay Vaca CO2 [Moles/Vol] 30.4 mmol/L Normal 21.0-32.0 [facility] Comment on above: Performed By: #### C MP, MG, URIC #### [facility] [place] [facility] [address] [place] [address] Dr. Mary Kay Vaca Creatinine [Mass/Vol] 1.30 mg/dL Normal 0.70-1.30 [facility] Comment on above: Performed By: #### C MP, MG, URIC #### [facility] [place] [facility] [address] [place] [address] Dr. Mary Kay Vaca EGFR-AF [place] >60 Normal >=60 [facility] Comment on above: Performed By: #### C MP, MG, URIC #### [facility] [place] [facility] [address] [address] [address] Mary Kay Vaca EGFR-NON AF [place] 52 mL/min/1.73m2 Critically low >=60 [facility] Comment on above: Performed By: #### C MP, MG, URIC #### [facility] [place] [facility] [address] [address] [address] Mary Kay Vaca Globulin (S) [Mass/Vol] 4.7 g/dL Normal [facility] Comment on above: Performed By: #### C MP, MG, URIC #### [facility] [place] [facility] [address] [address] [address] Mary Kay Vaca Glucose [Mass/Vol] 193 mg/dL Critically high 74-106 T [facility] Comment on above: Performed By: #### C MP, MG, URIC #### [facility] [place] [facility] [address] [place] [address] Dr. Mary Kay Vaca Potassium [Moles/Vol] 4.1 mmol/L Normal 3.5-5.1 [facility] Comment on above: Performed By: #### C MP, MG, URIC #### [facility] [place] [facility] [address] [place] [address] Dr. Mary Kay Vaca Protein [Mass/Vol] 8.7 g/dL Critically high 6.4-8.2 [facility] Comment on above: Performed By: #### C MP, MG, URIC #### [facility] [place] [facility] [address] [place] [address] Dr. Mary Kay Vaca Sodium [Moles/Vol] 139 mmol/L Normal 136-145 [facility] Comment on above: Performed By: #### C MP, MG, URIC #### [facility] [place] [facility] [address] [place] [address] Dr. Mary Kay Vaca Urea nitrogen [Mass/Vol] 33.0 mg/dL Critically high 7.0-18.0 [facility] Comment on above: Performed By: #### C MP, MG, URIC #### [facility] [place] [facility] [address] [place] [address] Dr. Mary Kay Vaca Urea nitrogen/Creatinine [Mass ratio] 25.4 mg/mg Normal [facility] Comment on above: Performed By: #### C MP, MG, URIC #### [facility] [place] [facility] [address] [place] [address] Dr. Mary Kay Vaca UA RANDOMon 09-17-2022 Bilirubin Ql (U) Negative Normal NEGATIVE [facility] Comment on above: Performed By: #### B MP, BNP #### [facility] [place] [facility] [address] [place] [address] Dr. Mary Kay Vaca Clarity (U) CLEAR Normal CLEAR [facility] Comment on above: Performed By: #### B MP, BNP #### [facility] [place] [facility] [address] [place] [address] Dr. Mary Kay Vaca Color (U) LT. YELLOW Normal YELLOW [facility] Comment on above: Performed By: #### B MP, BNP #### [facility] [place] [facility] [address] [place] [address] Dr. Mary Kay Vaca Glucose Ql (U) 100 mg/dl Abnormal NEGATIVE [facility] Comment on above: Performed By: #### B MP, BNP #### [facility] [place] [facility] [address] [place] [address] Dr. Mary Kay Vaca Hemoglobin Ql (U) TRACE-LYSED Abnormal NEGATIVE [facility] [place] [facility] Comment on above: Performed By: #### B MP, BNP #### [facility] [place] [facility] [address] [place] [address] Dr. Mary Kay Vaca Ketones Ql (U) Negative Normal NEGATIVE [facility] Comment on above: Performed By: #### B MP, BNP #### [facility] [place] [facility] [address] [place] [address] Dr. Mary Kay Vaca LEUKOCYTES Negative Normal NEGATIVE [facility] Comment on above: Performed By: #### B MP, BNP #### [facility] [place] [facility] [address] [place] [address] Dr. Mary Kay Vaca Nitrite Ql (U) Negative Normal NEGATIVE [facility] Comment on above: Performed By: #### B MP, BNP #### [facility] [place] [facility] [address] [place] [address] Dr. Mary Kay Vaca pH (U) 7.0 [pH] Normal 5-9 [facility] Comment on above: Performed By: #### B MP, BNP #### [facility] [place] [facility] [address] [place] [address] Dr. Mary Kay Vaca SPEC GRAVITY 1.010 Normal 1.005-<=1.02 5 [facility] Comment on above: Performed By: #### B MP, BNP #### [facility] [place] [facility] [address] [place] [address] Dr. Mary Kay Vaca UA PROTEIN Negative Normal NEGATIVE/ TRACE [facility] [place] [facility] Comment on above: Performed By: #### B MP, BNP #### [facility] [place] [facility] [address] [place] [address] Dr. Mary Kay Vaca Urobilinogen Qn (U) 0.2 {Ric'U}/dL Normal 0.2 - 1. 0 [facility] [place] [facility] Comment on above: Performed By: #### B MP, BNP #### [facility] [address] [place] [address] Dr. Mary Kay Vaca URIC ACID SERUMon 09-17-2022 Urate [Mass/Vol] 4.8 mg/dL Normal 3.5-7.2 [facility] [place] [facility] Comment on above: Performed By: #### C MP, MG, URIC #### [facility] [place] [facility] [address] [place] [address] Dr. Mary Kay Vaca URINE T PROTEIN CREAT RATIOo n 09-17-2022 Protein (U) [Mass/Vol] 19.9 mg/dL Critically high <=12.0 [facility] Comment on above: Performed By: #### R ENAL, LIPID #### [facility] [address] [place] [address] Dr. Mary Kay Vaca UR PROT CREAT RAT 1.31 Normal [facility] [place] [facility] Comment on above: Performed By: #### R ENAL, LIPID #### [facility] [place] [facility] [address] [place] [address] Dr. Mary Kay Vaca URINE CREAT 15.14 mg/dL Critically low 20.00-300.00 [facility] Comment on above: Performed By: #### R ENAL, LIPID #### [facility] [address] [place] [address] Dr. Mary Kay Vaca VIT B12 AND FOLATEon 023 Cobalamin (Vitamin B12) [Mass/Vol] 1181.0 pg/mL Critically high 193.0-986.0 [facility] Comment on above: Performed By: #### B MP, BNP #### [facility] [place] [facility] [address] [place] [address] Dr. Mary Kay Vaca FOLATE 9.90 ng/mL Normal 8.60-58.90 [facility] [place] [facility] Comment on above: Performed By: #### B MP, BNP #### [facility] [address] [place] [address] Dr. Mary Kay Vaca VITAMIN D 25 OHon 09-17-2022 VIT D 25-OH 41.7 ng/mL Normal [facility] [place] [facility] Comment on above: Performed By: #### C MP, MG, URIC #### [facility] [place] [facility] [address] [place], [place] [address] Dr. Mary Kay Vaca VIT D RANGES SEE BELOW Normal [facility] [place] [facility] Comment on above: Result Comment: <20 ng/mL Vit D deficient 20 - <30 ng/mL Vit D insufficient 30 - 100 ng/mL Vit D sufficient >100 ng/mL Potential Toxicity Performed By: #### C MP, MG, URIC #### [facility] [place] [facility] [address] [place], [place] [address] Dr. Mary Kay Vaca VC CONSULT FOLLOWUPon 2021 VC CONSULT FOLLOWUP Patient: PAULINE HENDERSON Exam Date: 07/30/2022 : 1935 Gender:M Ordering : DR ALVA GRACE M.D. Admission #: [id number] Family : Order #: [id number] CLICK HERE TO VIEW EXAM RADIOLOGY REPORT [...] physical exam and consultation Dictated by: Alva Grace MD on 07/30/2022 at 14:40 Approved by: Alva Grace MD on 07/30/2022 at 14:41 Normal [facility] VC EXT VENOUS LT LIMITEDon 1 09-29-2021 VC EXT VENOUS LT LIMITED Patient: CARLO HENDERSON Exam Date: 07/30/2022 : 1935 Gender:M Ordering : DR ALVA GRACE M.D. Admission #: [id number] Family : Order #: [id number] CLICK HERE TO VIEW EXAM RADIOLOGY REPORT [...] varicose veins are observed Dictated by: Alva Grace MD on 07/30/2022 at 14:25 Approved by: Alva Grace MD on 07/30/2022 at 14:26 Normal [facility] VC INJ FOAM SCLERO W US MLTI on 07-23-2022 VC INJ FOAM SCLERO W US MLTI Patient: CARLO HENDERSON Exam Date: 07/23/2022 : 1935 Gender:M Ordering : DR ALVA GRACE M.D. Admission #: [id number] Family : Order #: [id number] CLICK HERE TO VIEW EXAM RADIOLOGY REPORT [...] Varithena(r) 2. Intraoperative ultrasound guidance Physician: Alva Grace M.D. Anesthesia: None Indications for Procedure: 86-year-old [...] immediately (more content not included)... Normal [facility] VC CONSULT FOLLOWUPon 2021 VC CONSULT FOLLOWUP Patient: DANIELA PAULINE Jasso Exam Date: 07/09/2022 : 1935 Gender:M Ordering : DR ALVA GRACE M.D. Admission #: [id number] Family : Order #: [id number] CLICK HERE TO VIEW EXAM RADIOLOGY REPORT [...] physical exam and consultation Dictated by: Alva Grace MD on 07/09/2022 at 13:59 Approved by: Alva Grace MD on 07/09/2022 at 14:02 Normal [facility] VC VENOUS REFLUX LT [facility] VC VENOUS REFLUX LT [facility] Patient: CARLO HENDERSON Exam Date: 07/09/2022 : 1935 Gender:M Ordering : DR ALVA GRACE M.D. Admission #: [id number] Family : Order #: [id number] CLICK HERE TO VIEW EXAM RADIOLOGY REPORT [...] visualized in SSV. Compressibility: Normal Flow: Normal [employer]: Dist/med calf 2.4mm with 0s reflux. Mid/med [...] the small saphenous vein Dictated by: Alva Grace MD on 07/09/2022 at 13:37 Approved by: Alva Grace MD on 07/09/2022 at 13:38 Normal [facility] BNPon 04-08-2022 Natriuretic peptide B (Bld) [Mass/Vol] 1185.0 pg/mL Normal <=1,800.0 [facility] Comment on above: Performed By: #### B MP, BNP #### [facility] [address] [place] [address] Dr. Mary Kay Vaca PROF CHEM 8 (BAS METB)on Anion gap [Moles/Vol] 10.9 mmol/L Normal [facility] Comment on above: Performed By: #### B MP, BNP #### [facility] [address] [place] [address] Dr. Mary Kay Vaca Calcium [Mass/Vol] 8.8 mg/dL Normal 8.5-10.1 [facility] Comment on above: Performed By: #### B MP, BNP #### [facility] [address] [place] [address] Dr. Mary Kay Vaca Chloride [Moles/Vol] 107 mmol/L Normal 98-107 [facility] Comment on above: Performed By: #### B MP, BNP #### [facility] [address] [place] [address] Dr. Mary Kay Vaca CO2 [Moles/Vol] 29.0 mmol/L Normal 21.0-32.0 [facility] Comment on above: Performed By: #### B MP, BNP #### [facility] [address] [place] [address] Dr. Mary Kay Vaca Creatinine [Mass/Vol] 1.31 mg/dL Critically high 0.70-1.30 [facility] Comment on above: Performed By: #### B MP, BNP #### [facility] [address] [place] [address] Dr. Mary Kay Vaca EGFR-AF [place] >60 Normal >=60 [facility] Comment on above: Performed By: #### B MP, BNP #### [facility] [address] [place] [address] Dr. Mary Kay Vaca EGFR-NON AF [place] 52 mL/min/1.73m2 Critically low >=60 [facility] Comment on above: Performed By: #### B MP, BNP #### [facility] [address] [place] [address] Dr. Mary Kay Vaca Glucose [Mass/Vol] 121 mg/dL Critically high 74-106 T [facility] Comment on above: Performed By: #### B MP, BNP #### [facility] [address] [place] [address] Dr. Mary Kay Vaca Potassium [Moles/Vol] 3.9 mmol/L Normal 3.5-5.1 [facility] Comment on above: Performed By: #### B MP, BNP #### [facility] [address] [place] [address] Dr. Mary Kay Vaca Sodium [Moles/Vol] 143 mmol/L Normal 136-145 [facility] Comment on above: Performed By: #### B MP, BNP #### [facility] [address] [place] [address] Dr. Mary Kay Vaca Urea nitrogen [Mass/Vol] 29.0 mg/dL Critically high 7.0-18.0 [facility] Comment on above: Performed By: #### B MP, BNP #### [facility] [address] [place] [address] Dr. Mary Kay Vaca Urea nitrogen/Creatinine [Mass ratio] 22.1 mg/mg Normal [facility] Comment on above: Performed By: #### B MP, BNP #### [facility] [address] [place] [address] Dr. Mary Kay Vaca GLYCOHEMOGLOBIN A1Con 2021 ADA RECOMMENDATION SEE BELOW Normal [facility] Comment on above: Result Comment: ADA RECOMMENDED LIMIT 4.0 - 6.0 ADA THERAPEUTIC TARGET < 7.0 ACTION SUGGESTED > 7.0 Performed By: #### B MP, BNP #### [facility] [address] [place] [address] Dr. Mary Kay Vaca Glucose [Mass/Vol] 120 mg/dL Normal [facility] Comment on above: Performed By: #### B MP, BNP #### [facility] [address] [place] [address] Dr. Mary Kay Vaca HbA1c (Bld) [Mass fraction] 5.8 % Normal 4.5-6.2 [facility] Comment on above: Performed By: #### B MP, BNP #### [facility] [address] [place] [address] Dr. Mary Kay Vaca PTH INTACTon 03-27-2022 PTH, Intact 43 pg/mL Normal 15-65 [facility] Comment on above: Performed By: #### B MP, BNP #### [facility] [address] [place] [address] Dr. Mary Kay Vaca FERRITINon 03-25-2022 Ferritin [Mass/Vol] 30.0 ng/mL Normal 26.0-388.0 [facility] Comment on above: Performed By: #### F ERR, VITAD, FETIBC #### [facility] [address] [place] [address] Dr. Mary Kay Vaca HEMOGRAM AND PLATELon 2021 Hematocrit (Bld) [Volume fraction] 32.9 % Critically low 42.0-54.0 [facility] Comment on above: Performed By: #### B MP, BNP #### [facility] [address] [place] [address] Dr. Mary Kay Vaca Hemoglobin (Bld) [Mass/Vol] 9.9 g/dL Critically low 14.0-18.0 [facility] Comment on above: Performed By: #### B MP, BNP #### [facility] [address] [place] [address] Dr. Mary Kay Vaca MCH (RBC) [Entitic mass] 28.7 pg Normal 25.9-34.0 [facility] Comment on above: Performed By: #### B MP, BNP #### [facility] [address] [place] [address] Dr. Mary Kay Vaca MCHC (RBC) [Mass/Vol] 30.1 g/dL Normal 29.9-35.2 [facility] Comment on above: Performed By: #### B MP, BNP #### [facility] [address] [place] [address] Dr. Mary Kay Vaca MCV (RBC) [Entitic vol] 95.4 fL Critically high 80.0-94.0 [facility] Comment on above: Performed By: #### B MP, BNP #### [facility] [address] [place] [address] Dr. Mary Kay Vaca PLT 247 103/ul Normal 150-450 [facility] Comment on above: Performed By: #### B MP, BNP #### [facility] [address] [place] [address] Dr. Mary Kay Vaca RBC 3.45 106/ul Critically low 4.70-6.10 [facility] Comment on above: Performed By: #### B MP, BNP #### [facility] [address] [place] [address] Dr. Mary Kay Vaca WBC 6.9 103/ul Normal 4.0-11.0 [facility] Comment on above: Performed By: #### B MP, BNP #### [facility] [address] [place] [address] Dr. Mary Kay Vaca IRON AND TIBCon 03-25-2022 % SATURATION 12.4 % Normal [facility] Comment on above: Performed By: #### R ENAL, LIPID #### [facility] [address] [place] [address] Dr. Mary Kay Vaca Iron [Mass/Vol] 47.0 ug/dL Critically low 65.0-175.0 [facility] Comment on above: Performed By: #### R ENAL, LIPID #### [facility] [address] [place] [address] Dr. Mary Kay Vaca TIBC DIRECT 380.0 ug/dL Normal 250.0-450.0 [facility] Comment on above: Performed By: #### R ENAL, LIPID #### [facility] [address] [place] [address] Dr. Mary Kay Vaca PROF 14(COMP METB)on 022 Albumin [Mass/Vol] 3.3 g/dL Critically low 3.4-5.0 [facility] Comment on above: Performed By: #### R ENAL, LIPID #### [facility] [address] [place] [address] Dr. Mary Kay Vaca Albumin/Globulin [Mass ratio] 0.8 {ratio} Normal [facility] Comment on above: Performed By: #### R ENAL, LIPID #### [facility] [address] [place] [address] Dr. Mary Kay Vaca ALP [Catalytic activity/Vol] 203 U/L Critically high 46-116 [facility] Comment on above: Performed By: #### R ENAL, LIPID #### [facility] [address] [place] [address] Dr. Mary Kay Vaca ALT [Catalytic activity/Vol] 41 U/L Normal 16-63 [facility] Comment on above: Performed By: #### R ENAL, LIPID #### [facility] [address] [place] [address] Dr. Mary Kay Vaca Anion gap [Moles/Vol] 13.4 mmol/L Normal [facility] Comment on above: Performed By: #### R ENAL, LIPID #### [facility] [address] [address] [address] Mary Kay Vaca AST [Catalytic activity/Vol] 41 U/L Critically high 15-37 [facility] Comment on above: Performed By: #### R ENAL, LIPID #### [facility] [address] [address] [address] Mary Kay Vaca Bilirubin [Mass/Vol] 0.4 mg/dL Normal 0.2-1.0 [facility] Comment on above: Performed By: #### R ENAL, LIPID #### [facility] [address] [address] [address] Mary Kay Vaca Calcium [Mass/Vol] 9.0 mg/dL Normal 8.5-10.1 [facility] Comment on above: Performed By: #### R ENAL, LIPID #### [facility] [address] [place] [address] Dr. Mary Kay Vaca Chloride [Moles/Vol] 105 mmol/L Normal 98-107 [facility] Comment on above: Performed By: #### R ENAL, LIPID #### [facility] [address] [address] [address] Mary Kay Vaca CO2 [Moles/Vol] 24.9 mmol/L Normal 21.0-32.0 [facility] Comment on above: Performed By: #### R ENAL, LIPID #### [facility] [address] [address] [address] Mary Kay Vaca Creatinine [Mass/Vol] 0.97 mg/dL Normal 0.70-1.30 [facility] Comment on above: Performed By: #### R ENAL, LIPID #### [facility] [address] [address] [address] Mary Kay Vaca EGFR-AF [place] >60 Normal >=60 [facility] Comment on above: Performed By: #### R ENAL, LIPID #### [facility] [address] [address] [address] Mary Kay Vaca EGFR-NON AF [place] >60 Normal >=60 [facility] Comment on above: Performed By: #### R ENAL, LIPID #### [facility] [address] [address] [address] Mary Kay Vaca Globulin (S) [Mass/Vol] 4.1 g/dL Normal [facility] Comment on above: Performed By: #### R ENAL, LIPID #### [facility] [address] [address] [address] Mary Kay Vaca Glucose [Mass/Vol] 113 mg/dL Critically high 74-106 T [facility] Comment on above: Performed By: #### R ENAL, LIPID #### [facility] [address] [address] [address] Mary Kay Vaca Potassium [Moles/Vol] 4.3 mmol/L Normal 3.5-5.1 [facility] Comment on above: Performed By: #### R ENAL, LIPID #### [facility] [address] [place] [address] Dr. Mary Kay Vaca Protein [Mass/Vol] 7.4 g/dL Normal 6.4-8.2 [facility] Comment on above: Performed By: #### R ENAL, LIPID #### [facility] [address] [place] [address] Dr. Mary Kay Vaca Sodium [Moles/Vol] 139 mmol/L Normal 136-145 [facility] Comment on above: Performed By: #### R ENAL, LIPID #### [facility] [address] [place] [address] Dr. Mary Kay Vaca Urea nitrogen [Mass/Vol] 21.0 mg/dL Critically high 7.0-18.0 [facility] Comment on above: Performed By: #### R ENAL, LIPID #### [facility] [address] [place] [address] Dr. Mary Kay Vaca Urea nitrogen/Creatinine [Mass ratio] 21.6 mg/mg Normal [facility] Comment on above: Performed By: #### R ENAL, LIPID #### [facility] [address] [place] [address] Dr. Mary Kay Vaca UA RANDOMon 03-25-2022 Bilirubin Ql (U) Negative Normal NEGATIVE [facility] Comment on above: Performed By: #### B MP, BNP #### [facility] [address] [place] [address] Dr. Mary Kay Vaca Clarity (U) CLEAR Normal CLEAR [facility] Comment on above: Performed By: #### B MP, BNP #### [facility] [address] [place] [address] Dr. Mary Kay Vaca Color (U) LT. YELLOW Normal YELLOW [facility] Comment on above: Performed By: #### B MP, BNP #### [facility] [address] [place] [address] Dr. Mary Kay Vaca Glucose Ql (U) Negative Normal NEGATIVE [facility] Comment on above: Performed By: #### B MP, BNP #### [facility] [address] [place] [address] Dr. Mary Kay Vaca Hemoglobin Ql (U) Negative Normal NEGATIVE [facility] Comment on above: Performed By: #### B MP, BNP #### [facility] [address] [place] [address] Dr. Mary Kay Vaca Ketones Ql (U) Negative Normal NEGATIVE [facility] Comment on above: Performed By: #### B MP, BNP #### [facility] [address] [place] [address] Dr. Mary Kay Vaca LEUKOCYTES Negative Normal NEGATIVE [facility] Comment on above: Performed By: #### B MP, BNP #### [facility] [address] [place] [address] Dr. Mary Kay Vaca Nitrite Ql (U) Negative Normal NEGATIVE [facility] Comment on above: Performed By: #### B MP, BNP #### [facility] [address] [place] [address] Dr. Mary Kay Vaca pH (U) 6.5 [pH] Normal 5-9 [facility] Comment on above: Performed By: #### B MP, BNP #### [facility] [address] [place] [address] Dr. Mary Kay Vaca SPEC GRAVITY 1.010 Normal 1.005-<=1.02 5 [facility] Comment on above: Performed By: #### B MP, BNP #### [facility] [address] [place] [address] Dr. Mary Kay Vaca UA PROTEIN Negative Normal NEGATIVE/ TRACE [facility] Comment on above: Performed By: #### B MP, BNP #### [facility] [address] [place] [address] Dr. Mary Kay Vaca Urobilinogen Qn (U) 0.2 {Ric'U}/dL Normal 0.2 - 1. 0 [facility] Comment on above: Performed By: #### B MP, BNP #### [facility] [address] [place] [address] Dr. Mary Kay Vaca URIC ACID SERUMon 03-25-2022 Urate [Mass/Vol] 3.5 mg/dL Normal 3.5-7.2 [facility] Comment on above: Performed By: #### R ENAL, LIPID #### [facility] [address] [place] [address] Dr. Mary Kay Vaca URINE T PROTEIN CREAT RATIOo n 03-25-2022 Protein (U) [Mass/Vol] 21.4 mg/dL Critically high <=12.0 [facility] Comment on above: Performed By: #### B MP, BNP #### [facility] [address] [place] [address] Dr. Mary Kay Vaca UR PROT CREAT RAT 2.12 Normal [facility] Comment on above: Performed By: #### B MP, BNP #### [facility] [address] [place] [address] Dr. Mary Kay Vaca URINE CREAT 10.09 mg/dL Critically low 20.00-300.00 [facility] Comment on above: Performed By: #### B MP, BNP #### [facility] [address] [place] [address] Dr. Mary Kay Vaca VITAMIN D 25 OHon 03-25-2022 VIT D 25-OH 37.6 ng/mL Normal [facility] Comment on above: Performed By: #### F ERR, VITAD, FETIBC #### [facility] [address] [place] [address] Dr. Mary Kay Vaca VIT D RANGES SEE BELOW Normal [facility] Comment on above: Result Comment: <20 ng/mL Vit D deficient 20 - <30 ng/mL Vit D insufficient 30 - 100 ng/mL Vit D sufficient >100 ng/mL Potential Toxicity Performed By: #### F ERR, VITAD, FETIBC #### [facility] [address] [address] [address] Mary Kay Vaca VC CONSULT FOLLOWUPon 2021 VC CONSULT FOLLOWUP Patient: PAULINE HENDERSON Exam Date: 03/12/2022 : 1935 Gender:M Ordering : DR ALVA GRACE M.D. Admission #: [id number] Family : Order #: [id number] CLICK HERE TO VIEW EXAM RADIOLOGY REPORT [...] physical exam and consultation Dictated by: Alva Grace MD on 03/12/2022 at 15:32 Approved by: Alva Grace MD on 03/12/2022 at 15:34 Normal [facility] VC EXT VENOUS RT LIMITEDon 0 03-12-2022 VC EXT VENOUS RT LIMITED Patient: CARLO HENDERSON Exam Date: 03/12/2022 : 1935 Gender:M Ordering : DR ALVA GRACE M.D. Admission #: [id number] Family : Order #: [id number] CLICK HERE TO VIEW EXAM RADIOLOGY REPORT [...] treated incompetent varicose veins Dictated by: Alva Grace MD on 03/12/2022 at 15:16 Approved by: Alva Grace MD on 03/12/2022 at 15:19 Normal [facility] ECHOCARDIO M/2D COMPLETEon 0 03-08-2022 ECHOCARDIO M/2D COMPLETE Patient: CARLO HENDERSON Exam Date: 03/08/2022 : 1935 Gender:M Ordering : JERICA GanEunice MUÑIZ Admission #: [id number] Family : Order #: [id number] CLICK HERE TO VIEW EXAM ECHOCARDIOGRAM REPORT [...] Area(A4C): 29.80 cm2 Left Atrium Systolic Volume(A2C): 25175 mm3 Left Atrium Systolic Volume(A4C): 208589 mm3 Mitral Valve MV E to A Ratio: 1.70 Deceleration [place]: 5630 mm/s2 Mitral Valve A-Wave Peak Velocity: 64.20 cm/s Mitral Valve E-Wave Peak Velocity: 108.00 cm/s Right Ventricle RV Internal Diastolic Dimension: 3.61 cm Aorta AO Root Diam: 3.00 cm Aortic Valve Peak Velocity (Antegrade Flow): 187.00 cm/s, 205.00 cm/s AoV Area (Peak Shaheen): 1.14 cm2 AoV Area (VTI): 1.22 cm2 Deceleration [place]: 2340 mm/s2 Pressure Half-Time: 518 ms Peak [...] Franklin M.D. on 03/11/2022 at 12:38 Normal [facility] VC INJ FOAM SCLERO W US MLTI on 03-07-2022 VC INJ FOAM SCLERO W US MLTI Patient: CARLO HENDERSONEunice Exam Date: 03/07/2022 : 1935 Gender:M Ordering : DR ALVA GRACE M.D. Admission #: [id number] Family : Order #: [id number] CLICK HERE TO VIEW EXAM RADIOLOGY REPORT [...] Cabrera M.D. on 03/07/2022 at 15:56 Normal [facility] VC CONSULT FOLLOWUPon 2021 VC CONSULT FOLLOWUP Patient: PAULINE HENDERSON Exam Date: 03/01/2022 : 1935 Gender:M Ordering : DR ALVA GRACE M.D. Admission #: [id number] Family : Order #: [id number] CLICK HERE TO VIEW EXAM RADIOLOGY REPORT [...] Cabrera M.D. on 03/01/2022 at 14:47 Normal [facility] VC EXT VENOUS RT LIMITEDon 0 03-01-2022 VC EXT VENOUS RT LIMITED Patient: CARLO HENDERSON Exam Date: 03/01/2022 : 1935 Gender:M Ordering : DR ALVA GRACE M.D. Admission #: [id number] Family : Order #: [id number] CLICK HERE TO VIEW EXAM RADIOLOGY REPORT [...] Cabrera M.D. on 03/01/2022 at 14:41 Normal [facility] Cardiovascular Lab Reporton 07-29-2020 Cardiovascular Lab Report [facility] Patient Name: Carlo Henderson [facility] D MR #: [id number] Department of Physician: John Peralta M.D. Division of Service Date: 07/28/2020 Cardiology Birthdate: 1935 Adult Cardiovascular Room #: [place] [address] Cardiovascular Laboratory Report CLINICAL PRESENTATION: The patient [...] ultrasound guidance and micropuncture access technique, a 6-Dutch sheath was placed in the right internal [...] P/Elena Barnett M.D. Date Trans: 07/29/2020 05:43 A/alphonso [id number] cc: Jose Brewer M.D. [address] [facility] [address] Jerica Muñiz, [employer] [address] [facility] Mailstop [address] [facility] [address] Normal [facility] *SARS-CoV-2 COVID-19on 07-27 [id number] Not Detected Normal Not Detected [facility] Comment on above: Order Comment: The A ptima SARS-CoV-2 assay is a nucleic acid amplification test intended for the qualitative detection of RNA from SARS-CoV-2 isolated and purified from nasopharyngeal ([employer]BER),oropharyngeal (OP), nasal swab, sputum, and bronchoalveolar lavage (BAL) specimens from patients with signs and symptoms of infection who are suspected of COVID-19. Results are for the identification of SARS-CoV-2 RNA. The SARS-CoV-2 RNA is generally detectable during the acute phase of infection. The Aptima SARS-CoV-2 Assay on the [employer] and [employer] system is intended for use by laboratory personnel specifically instructed and trained in the operation of the [place] and [employer] system. The Aptima SARS-CoV-2 assay is [...] information. Performed By: #### [id number] #### [facility] [address] [facility] [place], [place] [address] Ambulatory Clinical Summaryo n 05-23-2020 Ambulatory Clinical Summary {[id number] Normal [facility] Vital Signs Date Time Vital Sign Value Performing Clinician Facility 05-03-2025 13:14-0400 Body height 167.6 cm Jose Brewer MD Work Phone: [facility] 05-03-2025 13:14-0400 Body mass index (BMI) [Ratio] 30.02 kg/m2 Jose Brewer MD Work Phone: [facility] 05-03-2025 13:14-0400 Body temperature 97.5 [degF] Jose Brewer MD Work Phone: [facility] 05-03-2025 13:14-0400 Body weight 84.37 kg Jose Brewer MD Work Phone: [facility] 05-03-2025 13:14-0400 Diastolic blood pressure 50 mm[Hg] Jose Brewer MD Work Phone: [facility] 05-03-2025 13:14-0400 Heart rate 43 /min Jose Brewer MD Work Phone: [facility] 05-03-2025 13:14-0400 Respiratory rate 18 /min Jose Brewer MD Work Phone: [facility] 05-03-2025 13:14-0400 SaO2% (BldA) [Mass fraction] 97 % Jose Brewer MD Work Phone: [facility] 05-03-2025 13:14-0400 Systolic blood pressure 104 mm[Hg] Jose Brewer MD Work Phone: [facility] 02-14-2025 13:20-0400 Body height 167.6 cm Delia Bustos MD Work Phone: [facility] 02-14-2025 13:20-0400 Body mass index (BMI) [Ratio] 29.21 kg/m2 Delia Bustos MD Work Phone: [facility] 02-14-2025 13:20-0400 Body weight 82.1 kg Delia Bustos MD Work Phone: [facility] 02-14-2025 13:20-0400 Diastolic blood pressure 56 mm[Hg] Delia Bustos MD Work Phone: [facility] 02-14-2025 13:20-0400 Heart rate 80 /min Delia Bustos MD Work Phone: [facility] 02-14-2025 13:20-0400 Respiratory rate 18 /min Delia Bustos MD Work Phone: [facility] 02-14-2025 13:20-0400 SaO2% (BldA) [Mass fraction] 95 % Delia Bustos MD Work Phone: [facility] 02-14-2025 13:20-0400 Systolic blood pressure 100 mm[Hg] Delia Bustos MD Work Phone: [facility] 01-19-2025 09:12-0400 Body height 167.6 cm Jose Brewer MD Work Phone: [facility] 01-19-2025 09:12-0400 Body mass index (BMI) [Ratio] 30.67 kg/m2 Jose Brewer MD Work Phone: [facility] 01-19-2025 09:12-0400 Body temperature 97.5 [degF] Jose Brewer MD Work Phone: [facility] 01-19-2025 09:12-0400 Body weight 86.18 kg Jose Brewer MD Work Phone: [facility] 01-19-2025 09:12-0400 Diastolic blood pressure 50 mm[Hg] Jose Brewer MD Work Phone: [facility] 01-19-2025 09:12-0400 Heart rate 82 /min Jose Brewer MD Work Phone: [facility] 01-19-2025 09:12-0400 Respiratory rate 18 /min Jose Brewer MD Work Phone: [facility] 01-19-2025 09:12-0400 SaO2% (BldA) [Mass fraction] 98 % Jose Brewer MD Work Phone: [facility] 01-19-2025 09:12-0400 Systolic blood pressure 122 mm[Hg] Jose Brewer MD Work Phone: [facility] 11-02-2024 13:17-0500 Body height 167.6 cm Jose Brewer MD Work Phone: [facility] 11-02-2024 13:17-0500 Body mass index (BMI) [Ratio] 29.21 kg/m2 Jose Brewer MD Work Phone: [facility] 11-02-2024 13:17-0500 Body temperature 97.11 [degF] Jose Brewer MD Work Phone: [facility] 11-02-2024 13:17-0500 Body weight 82.1 kg Jose Brewer MD Work Phone: [facility] 11-02-2024 13:17-0500 Diastolic blood pressure 50 mm[Hg] Jose Brewer MD Work Phone: [facility] 11-02-2024 13:17-0500 Heart rate 77 /min Jose Brewer MD Work Phone: [facility] 11-02-2024 13:17-0500 Respiratory rate 18 /min Jose Brewer MD Work Phone: [facility] 11-02-2024 13:17-0500 SaO2% (BldA) [Mass fraction] 99 % Jose Brewer MD Work Phone: [facility] 11-02-2024 13:17-0500 Systolic blood pressure 98 mm[Hg] Jose Brewer MD Work Phone: [facility] 10-19-2024 13:02-0500 Body height 167.64 cm [facility] 10-19-2024 13:02-0500 Body mass index (BMI) [Ratio] 29.2 kg/m2 [facility] 10-19-2024 13:02-0500 Body temperature 96.9 [degF] [facility] 10-19-2024 13:02-0500 Body weight 82.32 kg [facility] 10-19-2024 13:02-0500 Diastolic blood pressure 71 mm[Hg] [facility] 10-19-2024 13:02-0500 Heart rate 61 /min [facility] 10-19-2024 13:02-0500 Respiratory rate 16 /min [facility] 10-19-2024 13:02-0500 SaO2% (BldA) [Mass fraction] 100 % [facility] 10-19-2024 13:02-0500 Systolic blood pressure 126 mm[Hg] [facility] 10-18-2024 13:53-0500 Body height 167.6 cm Delia Bustos MD Work Phone: [facility] 10-18-2024 13:53-0500 Body mass index (BMI) [Ratio] 28.57 kg/m2 Delia Bustos MD Work Phone: [facility] 10-18-2024 13:53-0500 Body weight 80.29 kg Delia Bustos MD Work Phone: [facility] 10-18-2024 13:53-0500 Diastolic blood pressure 62 mm[Hg] Delia Bustos MD Work Phone: [facility] 10-18-2024 13:53-0500 Heart rate 82 /min Delia Bustos MD Work Phone: [facility] 10-18-2024 13:53-0500 Respiratory rate 18 /min Delia Bustos MD Work Phone: [facility] 10-18-2024 13:53-0500 SaO2% (BldA) [Mass fraction] 96 % Delia Bustos MD Work Phone: [facility] 10-18-2024 13:53-0500 Systolic blood pressure 100 mm[Hg] Delia Bustos MD Work Phone: [facility] 08-25-2024 13:42-0500 Body height 167.6 cm Chanelle Benz MD Work Phone: [facility] 08-25-2024 13:42-0500 Body mass index (BMI) [Ratio] 29.54 kg/m2 Chanelle Benz MD Work Phone: [facility] 08-25-2024 13:42-0500 Body weight 83.01 kg Chanelle Benz MD Work Phone: [facility] 08-25-2024 13:42-0500 Diastolic blood pressure 57 mm[Hg] Chanelle Benz MD Work Phone: [facility] 08-25-2024 13:42-0500 Heart rate 80 /min Chanelle Benz MD Work Phone: [facility] 08-25-2024 13:42-0500 Systolic blood pressure 90 mm[Hg] Chanelle Benz MD Work Phone: [facility] 08-20-2024 11:32-0500 Body height 167.6 cm Jose Brewer MD Work Phone: [facility] 08-20-2024 11:32-0500 Body mass index (BMI) [Ratio] 29.38 kg/m2 Jose Brewer MD Work Phone: [facility] 08-20-2024 11:32-0500 Body temperature 96.21 [degF] Jose Brewer MD Work Phone: [facility] 08-20-2024 11:32-0500 Body weight 82.56 kg Jose Brewer MD Work Phone: [facility] 08-20-2024 11:32-0500 Diastolic blood pressure 50 mm[Hg] Jose Brewer MD Work Phone: [facility] 08-20-2024 11:32-0500 Heart rate 84 /min Jose Brewer MD Work Phone: [facility] 08-20-2024 11:32-0500 Respiratory rate 20 /min Jose Brewer MD Work Phone: [facility] 08-20-2024 11:32-0500 SaO2% (BldA) [Mass fraction] 90 % Jose Brewer MD Work Phone: [facility] 08-20-2024 11:32-0500 Systolic blood pressure 114 mm[Hg] Jose Brewer MD Work Phone: [facility] 06-17-2024 10:41-0400 Body height 167.64 cm [facility] 06-17-2024 10:41-0400 Body mass index (BMI) [Ratio] 28.7 kg/m2 [facility] 06-17-2024 10:41-0400 Body weight 80.73 kg [facility] 06-17-2024 10:41-0400 Diastolic blood pressure 53 mm[Hg] [facility] 06-17-2024 10:41-0400 Heart rate 94 /min [facility] 06-17-2024 10:41-0400 Systolic blood pressure 86 mm[Hg] [facility] 05-04-2024 13:09-0400 Body height 167.64 cm [facility] 05-04-2024 13:09-0400 Body mass index (BMI) [Ratio] 29.9 kg/m2 [facility] 05-04-2024 13:09-0400 Body temperature 96.5 [degF] [facility] 05-04-2024 13:09-0400 Body weight 84.02 kg [facility] 05-04-2024 13:09-0400 Diastolic blood pressure 48 mm[Hg] [facility] 05-04-2024 13:09-0400 Heart rate 66 /min [facility] 05-04-2024 13:09-0400 Respiratory rate 18 /min [facility] 05-04-2024 13:09-0400 SaO2% (BldA) [Mass fraction] 98 % [facility] 05-04-2024 13:09-0400 Systolic blood pressure 116 mm[Hg] [facility] 03-11-2024 10:33-0400 Diastolic blood pressure 63 mm[Hg] Brisa Enciso MD Work Phone: [facility] 03-11-2024 10:33-0400 Systolic blood pressure 119 mm[Hg] Brisa Enciso MD Work Phone: [facility] 03-11-2024 10:29-0400 Body height 167.6 cm Brias Enciso MD Work Phone: [facility] 03-11-2024 10:29-0400 Body mass index (BMI) [Ratio] 29.05 kg/m2 Brisa Enciso MD Work Phone: [facility] 03-11-2024 10:29-0400 Body weight 81.65 kg Brisa Enciso MD Work Phone: [facility] 03-11-2024 10:29-0400 Heart rate 45 /min Brisa Enciso MD Work Phone: [facility] 03-11-2024 10:29-0400 SaO2% (BldA) [Mass fraction] 94 % Brisa Enciso MD Work Phone: [facility] 01-22-2024 11:32-0400 Diastolic blood pressure 68 mm[Hg] Brisa Enciso MD Work Phone: [facility] 01-22-2024 11:32-0400 Heart rate 78 /min Brisa Enciso MD Work Phone: [facility] 01-22-2024 11:32-0400 Systolic blood pressure 102 mm[Hg] Brisa Enciso MD Work Phone: [facility] 01-22-2024 11:31-0400 Body height 165.1 cm Brisa Enciso MD Work Phone: [facility] 01-22-2024 11:31-0400 Body mass index (BMI) [Ratio] 31.32 kg/m2 Brisa Enciso MD Work Phone: [facility] 01-22-2024 11:31-0400 Body weight 85.37 kg Brisa Enciso MD Work Phone: [facility] 01-21-2024 11:59-0400 [facility] 01-21-2024 11:59-0400 Body mass index (BMI) [Ratio] 29.95 kg/m2 [facility] 01-21-2024 11:59-0400 Body weight 81.65 kg [facility] 01-08-2024 12:55-0400 Body height 165.1 cm Brisa Enciso MD Work Phone: [facility] 01-08-2024 12:55-0400 Body mass index (BMI) [Ratio] 30.79 kg/m2 Brisa Enciso MD Work Phone: [facility] 01-08-2024 12:55-0400 Body weight 83.92 kg Brisa Enciso MD Work Phone: [facility] 01-08-2024 12:55-0400 Diastolic blood pressure 56 mm[Hg] Brisa Enciso MD Work Phone: [facility] 01-08-2024 12:55-0400 Heart rate 88 /min Brisa Enciso MD Work Phone: [facility] 01-08-2024 12:55-0400 Systolic blood pressure 103 mm[Hg] Brisa Enciso MD Work Phone: [facility] 12-25-2023 10:34-0400 Body height 167 cm Brisa Enciso MD Work Phone: [facility] 12-25-2023 10:34-0400 Body mass index (BMI) [Ratio] 30.77 kg/m2 Brisa Enciso MD Work Phone: [facility] 12-25-2023 10:34-0400 Body weight 85.82 kg Brisa Enciso MD Work Phone: [facility] 12-25-2023 10:34-0400 Diastolic blood pressure 70 mm[Hg] Brisa Enciso MD Work Phone: [facility] 12-25-2023 10:34-0400 Systolic blood pressure 155 mm[Hg] Brisa Enciso MD Work Phone: [facility] 10-30-2023 14:15-0500 Body height 167.6 cm Jose Brewer MD Work Phone: [facility] 10-30-2023 14:15-0500 Body mass index (BMI) [Ratio] 30.99 kg/m2 Jose Brewer MD Work Phone: [facility] 10-30-2023 14:15-0500 Body temperature 96.3 [degF] Jose Brewer MD Work Phone: [facility] 10-30-2023 14:15-0500 Body weight 87.09 kg Jose Brewer MD Work Phone: [facility] 10-30-2023 14:15-0500 Diastolic blood pressure 60 mm[Hg] Jose Brewer MD Work Phone: [facility] 10-30-2023 14:15-0500 Heart rate 90 /min Jose Brewer MD Work Phone: [facility] 10-30-2023 14:15-0500 SaO2% (BldA) [Mass fraction] 96 % Jose Brewer MD Work Phone: [facility] 10-30-2023 14:15-0500 Systolic blood pressure 106 mm[Hg] Jose Brewer MD Work Phone: [facility] 07-10-2023 14:00-0400 Body height 167.64 cm [employer] Other [employer] Other 07-10-2023 14:00-0400 Body mass index (BMI) [Ratio] 30.18 kg/m2 [employer] Other [employer] Other 07-10-2023 14:00-0400 Body temperature 96.8 [degF] [employer] Other [employer] Other 07-10-2023 14:00-0400 Body weight 84.82 kg Aziz Bakhous Other [employer] Other 07-10-2023 14:00-0400 Diastolic blood pressure 69 mm[Hg] Aziz Bakhous Other [employer] Other 07-10-2023 14:00-0400 Respiratory rate 18 /min Aziz Bakhous Other [employer] Other 07-10-2023 14:00-0400 SaO2% (BldA) [Mass fraction] 93 % Aziz Bakhous Other [employer] Other 07-10-2023 14:00-0400 Systolic blood pressure 110 mm[Hg] Aziz Bakhous Other [employer] Other 03-07-2023 11:40-0400 Body height 167.64 cm Aziz Bakhous Other [employer] Other 03-07-2023 11:40-0400 Body mass index (BMI) [Ratio] 31.44 kg/m2 Aziz Bakhous Other [employer] Other 03-07-2023 11:40-0400 Body temperature 97 [degF] Aziz Bakhous Other [employer] Other 03-07-2023 11:40-0400 Body weight 88.36 kg Aziz Bakhous Other [employer] Other 03-07-2023 11:40-0400 Diastolic blood pressure 84 mm[Hg] Aziz Bakhous Other [employer] Other 03-07-2023 11:40-0400 Respiratory rate 18 /min Azshan Bakselenes Other [employer] Other 03-07-2023 11:40-0400 SaO2% (BldA) [Mass fraction] 96 % Aziz Bakhous Other [employer] Other 03-07-2023 11:40-0400 Systolic blood pressure 154 mm[Hg] Aziz Bakhous Other [employer] Other 09-25-2022 14:40-0500 Body height 167.64 cm Azshan Bakselenes Other [employer] Other 09-25-2022 14:40-0500 Body mass index (BMI) [Ratio] 29.05 kg/m2 Azshan Bakselenes Other [employer] Other 09-25-2022 14:40-0500 Body temperature 96.7 [degF] Aziz Bakhous Other [employer] Other 09-25-2022 14:40-0500 Body weight 81.65 kg Azshan Bakhous Other [employer] Other 09-25-2022 14:40-0500 Diastolic blood pressure 74 mm[Hg] Aziz Bakhous Other [employer] Other 09-25-2022 14:40-0500 Respiratory rate 18 /min Aziz Bakhous Other [employer] Other 09-25-2022 14:40-0500 SaO2% (BldA) [Mass fraction] 96 % Aziz Bakhous Other [employer] Other 09-25-2022 14:40-0500 Systolic blood pressure 108 mm[Hg] Kaur Huizar Other [facility] [employer] Other 04-24-2022 14:32-0400 Body temperature 97.7 [degF] MD Kaur Huizar Work Phone: [facility] 04-24-2022 14:32-0400 Diastolic blood pressure 61 mm[Hg] MD Kaur Huizar Work Phone: [facility] 04-24-2022 14:32-0400 Heart rate 66 /min MD Kaur Huizar Work Phone: [facility] 04-24-2022 14:32-0400 Systolic blood pressure 137 mm[Hg] MD Kaur Huizar Work Phone: [facility] 04-24-2022 13:20-0400 Respiratory rate 16 /min MD Kaur Huizar Work Phone: [facility] 04-24-2022 13:20-0400 SaO2% (BldA) [Mass fraction] 97 % MD Kaur Huizar Work Phone: [facility] 04-02-2022 12:40-0400 Body height 167.64 cm Kaur Huizar Other [employer] [facility] [employer] Other 04-02-2022 12:40-0400 Body mass index (BMI) [Ratio] 28.08 kg/m2 Kaur Huizar Other [employer] Other 04-02-2022 12:40-0400 Body temperature 96.6 [degF] Kaur Huizar Other [employer] Other 04-02-2022 12:40-0400 Body weight 78.93 kg Aziz Bakhous Other [employer] Other 04-02-2022 12:40-0400 Diastolic blood pressure 77 mm[Hg] Aziz Bakhous Other [employer] Other 04-02-2022 12:40-0400 Respiratory rate 18 /min Aziz Bakhous Other [employer] Other 04-02-2022 12:40-0400 SaO2% (BldA) [Mass fraction] 96 % Aziz Bakhous Other [employer] Other 04-02-2022 12:40-0400 Systolic blood pressure 146 mm[Hg] Aziz Bakhous Other [employer] Other 01-22-2022 12:20-0400 Body height 167.64 cm Aziz Bakhous Other [employer] Other 01-22-2022 12:20-0400 Body mass index (BMI) [Ratio] 28.08 kg/m2 Aziz Bakhous Other [employer] Other 01-22-2022 12:20-0400 Body temperature 96.1 [degF] Aziz Bakhous Other [employer] Other 01-22-2022 12:20-0400 Body weight 78.93 kg Aziz Bakhous Other [employer] Other 01-22-2022 12:20-0400 Diastolic blood pressure 60 mm[Hg] Aziz Bakhous Other [employer] Other 01-22-2022 12:20-0400 Respiratory rate 20 /min Aziz Bakhous Other [employer] Other 01-22-2022 12:20-0400 SaO2% (BldA) [Mass fraction] 97 % Kaur Huizar Other [employer] Other 01-22-2022 12:20-0400 Systolic blood pressure 104 mm[Hg] Kaur Huizar Other [employer] Other Encounters Encounter Date Encounter Type Care Provider Facility Start: 05-11-2025 End: 05-13-2025 ambulatory JOSE BREWER [facility] Start: 05-03-2025 End: 05-03-2025 Bamboo flowsheet Jose Brewer MD Work Phone: [facility] Start: 05-03-2025 End: 05-03-2025 Bamboo flowsheet Jose Brewer MD Work Phone: [facility] Start: 05-03-2025 End: 05-03-2025 ambulatory JOSE BREWER Not Available Start: 05-03-2025 End: 05-03-2025 Office outpatient visit 25 minutes Jose Brewer MD Work Phone: [facility] Comment on above: 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, 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) (Primary Dx); Benign essential hypertension ; Chronic heart failure with preserved ejection fraction (HFpEF) (HCC); Chronic obstructive pulmonary disease, unspecified COPD type ([facility]); Gastroesophageal reflux disease without esophagitis; Primary osteoarthritis involving multiple joints Start: 02-14-2025 End: 02-14-2025 Bamboo flowsheet Delia Bustos MD Work Phone: [facility] Start: 02-14-2025 End: 02-14-2025 Bamboo flowsantonio Bustos MD Work Phone: [facility] Start: 02-14-2025 End: 02-14-2025 Office outpatient visit 25 minutes Delia Bustos MD Work Phone: [facility] Comment on above: 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, without long-term current use of insulin ([facility]) (Primary Dx); Vitamin D deficiency; Primary hypertension ([facility]); Hyperlipemia, mixed ([facility]); Encounter for dietary consultation; Stage 3b chronic kidney disease (HCC) ([facility]); Type 2 diabetes mellitus with hyperglycemia, with long-term current use of insulin ([facility]) Start: 02-14-2025 End: 02-14-2025 ambulatory DELIA BUSTOS Not Available Start: 01-19-2025 End: 01-19-2025 Bamboo flowsheet Jose Brewer MD Work Phone: [facility] Start: 01-19-2025 End: 01-19-2025 Bamboo flowsheet Jose Brewer MD Work Phone: [facility] Start: 01-19-2025 End: 01-19-2025 Office outpatient visit 15 minutes Jose Brewer MD Work Phone: [facility] Comment on above: Clostridium difficil e colitis (Primary Dx); Type 2 diabetes mellitus with microalbuminuria, without long-term current use of insulin ([facility]) Start: 01-19-2025 End: 01-19-2025 ambulatory JOSE BREWER Not Available Start: 01-14-2025 End: 01-14-2025 Emergency department patient visit JOSE BREWER [facility] Start: 11-02-2024 End: 11-02-2024 Bamboo flowsheet Jose Brewer MD Work Phone: [facility] Start: 11-02-2024 End: 11-02-2024 Bamboo flowsheet Jose Brewer MD Work Phone: [facility] Start: 11-02-2024 End: 11-02-2024 ambulatory JOSE BREEWR Not Available Start: 11-02-2024 End: 11-02-2024 Office outpatient visit 25 minutes Jose Brewer MD Work Phone: [facility] Comment on above: 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, 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 (CMS/HCC) (Primary Dx); Benign essential hypertension (CMS/HCC); Chronic heart failure with preserved ejection fraction (HFpEF) (CMS/HCC); Primary osteoarthritis of shoulders, bilateral; Gastroesophageal reflux disease without esophagitis; Type 2 diabetes mellitus with hyperglycemia, with long-term current use of insulin (CMS/HCC); Other cirrhosis of liver (CMS/HCC); Chronic obstructive pulmonary disease, unspecified COPD type (CMS/HCC) Start: 10-19-2024 End: 10-19-2024 ambulatory [facility] Work Phone: Start: 10-19-2024 End: 10-19-2024 Patient encounter procedure [facility] [place] Work Phone: Start: 10-18-2024 End: 10-18-2024 Bamboo flowsheet Delia Bustos MD Work Phone: [facility] Start: 10-18-2024 End: 10-18-2024 Bamboo flowsheet Delia Bustos MD Work Phone: [facility] Start: 10-18-2024 End: 10-18-2024 Office outpatient visit 25 minutes Delia Bustos MD Work Phone: [facility] Comment on above: 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, without long-term current use of insulin (CMS/HCC) (Primary Dx); Vitamin D deficiency; Primary hypertension (CMS/HCC); Hyperlipemia, mixed (CMS/HCC); Encounter for dietary consultation; Stage 3b chronic kidney disease (HCC) ([facility]/HCC) Start: 10-18-2024 End: 10-18-2024 ambulatory DELIA BUSTOS Not Available Start: 10-11-2024 End: 10-11-2024 Clinisync Result Encounter Generic External Data Provider [facility] External Department Unsolicited Start: 10-11-2024 End: 01-27-2025 Clinisync Result Encounter Generic External Data Provider [facility] External Department Unsolicited Start: 10-11-2024 [facility]patient [facility]: Start: 09-13-2024 End: 09-13-2024 Refill Charlotte Abrams NP Work Phone: [facility] Comment on above: 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, 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 ([facility]); Type 2 diabetes mellitus with hyperglycemia, without long-term current use of insulin ([facility]) Start: 09-06-2024 End: 09-06-2024 ambulatory [facility] Start: 08-25-2024 End: 08-25-2024 Bamboo flowsantonio Benz MD Work Phone: [facility] Start: 08-25-2024 End: 08-25-2024 Karen flowsantonio Benz MD Work Phone: [facility] Start: 08-25-2024 End: 08-25-2024 Patient encounter procedure Chanelle Benz MD Work Phone: [facility] Comment on above: Left ear impacted ce rumen Start: 08-25-2024 End: 08-25-2024 ambulatory CHANELLE BENZ Not Available Start: 08-20-2024 End: 08-20-2024 Bamboo flowsantonio Brewer MD Work Phone: [facility] Start: 08-20-2024 End: 08-20-2024 Bamboo flowsheet Jose Brewer MD Work Phone: [facility] Start: 08-20-2024 End: 08-20-2024 Office outpatient visit 15 minutes Jose Brewer MD Work Phone: [facility] Comment on above: Bilateral hearing lo ss due to cerumen impaction (Primary Dx); Type 2 diabetes mellitus with diabetic chronic kidney disease ([facility]); Chronic kidney disease, stage 3b (HCC) (CMS/HCC) Start: 08-20-2024 End: 08-20-2024 ambulatory JOSE BREWER Not Available Start: 07-29-2024 End: 07-29-2024 Refill Pepper Aguero APRN-[employer] [facility] Start: 07-16-2024 End: 07-18-2024 Refill Delia Bustos MD Work Phone: [facility] Comment on above: 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, with long-term current use of insulin (CMS/[facility]) (Primary Dx) Start: 07-02-2024 End: 07-02-2024 Patient encounter procedure MD Jose Brewer Work Phone: [facility] [place] Work Phone: Start: 07-02-2024 End: 07-02-2024 ambulatory MD Jose Brewer Work Phone: [facility] Work Phone: Start: 06-24-2024 End: 06-24-2024 Patient encounter procedure MD Jose Brewer Work Phone: [facility] Work Phone: Start: 06-24-2024 End: 06-24-2024 ambulatory MD Jose Brewer Work Phone: [facility] Work Phone: Start: 06-17-2024 End: 06-17-2024 Patient encounter procedure MD Jose Brewer Work Phone: [facility] [place] Work Phone: Start: 06-17-2024 End: 06-17-2024 ambulatory MD Jose Brewer Work Phone: [facility] Work Phone: Start: 06-17-2024 End: 06-17-2024 ambulatory [facility] Work Phone: Start: 06-17-2024 End: 06-17-2024 Patient encounter procedure [facility] Gastroenterology Work Phone: Start: 05-04-2024 End: 05-04-2024 ambulatory [facility] Work Phone: Start: 05-04-2024 End: 05-04-2024 Patient encounter procedure [facility] [place] Work Phone: Start: 04-26-2024 Non-patient / [facility] [facility] Work Phone: Start: 03-22-2024 End: 03-22-2024 Refill Pepper Aguero [employer] Work Phone: [facility] Start: 03-19-2024 End: 03-19-2024 Refill Pepper Aguero [employer] Work Phone: [facility] Start: 03-11-2024 End: 03-11-2024 ambulatory [facility] Start: 03-11-2024 End: 03-11-2024 Postop follow up visit related to original px Brisa Enciso MD Work Phone: [facility] Comment on above: History of CEA (hernández tid endarterectomy) (Primary Dx); Carotid stenosis, right Start: 02-11-2024 Evaluation and management of inpatient [facility] Start: 01-27-2024 End: 01-27-2024 Evaluation and management of inpatient [place] Start: 01-27-2024 End: 01-27-2024 Orders Only [facility] Comment on above: Carotid stenosis, as ymptomatic, left (Primary Dx); Pre-op testing Start: 01-27-2024 End: 01-27-2024 Patient encounter status [facility] Start: 01-27-2024 End: 01-27-2024 Evaluation and management of inpatient [facility] Start: 01-22-2024 End: 01-22-2024 ambulatory [facility] Start: 01-22-2024 End: 01-22-2024 Office outpatient visit 25 minutes Brisa Enciso MD Work Phone: [facility] Comment on above: PAD (peripheral omayra ry disease) ([facility]) (Primary Dx); Bilateral carotid bruits Start: 01-21-2024 End: 01-21-2024 Admission to [place] Phone Call Provider 3 [facility] Start: 01-21-2024 End: 01-21-2024 Evaluation and management of inpatient [place] Start: 01-08-2024 End: 01-08-2024 Office outpatient visit 25 minutes Brisa Enciso MD Work Phone: [facility] Comment on above: Carotid stenosis, as ymptomatic, left (Primary Dx); Rest pain of both lower extremities due to atherosclerosis ([facility]) Start: 01-08-2024 End: 01-08-2024 ambulatory [facility] Start: 12-25-2023 End: 12-25-2023 ambulatory [facility] Start: 12-25-2023 End: 12-25-2023 Office outpatient visit 40 minutes Brisa Enciso MD Work Phone: [facility] Comment on above: Left carotid artery stenosis (Primary Dx); Chronic kidney disease, stage 3b (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 ([facility]) (Primary Dx); Chronic heart failure with preserved ejection fraction (HFpEF) ([facility]); Benign essential hypertension ([facility]); Primary osteoarthritis of shoulders, bilateral; Gastroesophageal reflux disease without esophagitis; Skin candidiasis; PAD (peripheral artery disease) ([facility]) Start: 10-30-2023 [facility] Start: 10-30-2023 [facility] Work Phone: [facility] Start: 08-04-2023 End: 08-04-2023 ambulatory Aziz Bakhous Other [employer] Other Start: 08-04-2023 Telephone encounter [facility] Start: 07-10-2023 End: 07-10-2023 ambulatory Aziz Bakhous Other [employer] Other Start: 07-10-2023 Office outpatient vi sit 25 minutes Aziz Bakhous [facility] Start: 03-07-2023 End: 03-07-2023 ambulatory Aziz Bakhous Other [employer] Other Start: 03-07-2023 Office outpatient vi sit 25 minutes Aziz Bakhous [facility] Start: 02-11-2023 End: 02-12-2023 ambulatory AZIZ BAKHOUS Facility:[facility]1 Start: 12-23-2022 End: 12-24-[address] JOSE BREWER Facility:[facility] Start: 11-11-2022 End: 11-12-[address] JOSE BREWER Facility:[facility] Start: 09-25-2022 End: 09-25-2022 ambulatory Aziz Bakhous Other [employer] Other Start: 09-25-2022 Office outpatient vi sit 25 minutes Kaur Huizar [facility] Start: 09-17-2022 End: 09-18-2022 ambulatory KAUR HUIZAR Facility:[facility] Start: 07-30-2022 End: 07-31-[address] JOSE BREWER Facility:[facility] Start: 07-23-2022 End: 07-24-[address] JOSE BREWER Facility:[facility] Start: 07-09-2022 End: 07-10-[address] ALVA GRACE Facility:[facility] Start: 05-16-2022 ambulatory JERICA MUÑIZ Facility :[facility] Start: 04-24-2022 End: 04-24-2022 Discharged Recurring MD Kaur Huizar Work Phone: [facility] Start: 04-08-2022 End: 04-09-[address] JAIDEN JONES Facility:[facility] Start: 04-04-2022 End: 04-05-[address] JOSE BREWER Facility:[facility] Start: 04-02-2022 End: 04-02-2022 ambulatory Kaur Huizar Other [employer] Other Start: 04-02-2022 Office outpatient vi sit 25 minutes Kaur Huizar [facility] Start: 03-25-2022 End: 03-26-[address] DOCTOR ROSE Facility:[facility] Start: 03-12-2022 End: 03-13-[address] ALVA GRACE Facility:[facility] Start: 03-08-2022 End: 03-09-2022 ambulatory JERICA MUÑIZ Facility:[facility] Start: 03-07-2022 End: 03-08-[address] ALVA GRACE Facility:[facility] Start: 03-01-2022 End: 03-02-[address] ALVA GRACE Facility:[facility] Start: 02-25-2022 ambulatory KAREEN Knight lity:H1 Start: 01-22-2022 End: 01-22-2022 ambulatory Kaur Huizar Other [employer] Other Start: 01-22-2022 Office outpatient vi sit 25 minutes Aziz Bakhous [facility] [place] Start: 01-18-2022 End: 01-18-2022 ambulatory Aziz Bakhous Other [employer] Other Start: 01-18-2022 Telephone encounter Aziz Bakhous [facility] Start: 01-14-2022 End: 01-14-2022 ambulatory Aziz Bakhous Other [employer] Other Start: 01-14-2022 Telephone encounter Aziz Bakhous [facility] Start: 10-23-2021 End: 10-23-2021 ambulatory Aziz Bakhous Other [employer] Other Start: 10-23-2021 Telephone encounter Aziz Bakhous [facility] Start: 07-28-2020 End: 07-29-2020 Patient encounter procedure REFERRED SELF Facility:[facility] Procedures Date Procedure Procedure Detail Performing Clinician Start: 02-14-2025 Gluc bld gluc mntr dev cleared fda spec home use Delia Bustos MD Work Phone: Start: 10-18-2024 Gluc bld gluc mntr dev cleared fda spec home use Delia Bustos MD Work Phone: Start: 10-11-2024 ALL URINALYSIS Generic External Memo a Provider Start: 07-02-2024 Ultrasonography of liver MD Jose Brewer Work Phone: Start: 06-24-2024 Ultrasound elastography of liver MD Jose Brewer Work Phone: Start: 03-11-2024 History of carotid endarterectomy History of CEA (carotid endarterectomy) Brisa Enciso MD Work Phone: Start: 02-11-2024 Adult depression screening assessment Brisa Enciso MD Work Phone: Plan of Treatment Date Care Activity Detail Author Start: 11-20-2028 DTaP,Tdap and Td Vaccines (2 - Td or Tdap) DTaP,Tdap and Td Vaccines (2 - Td or Tdap) [facility] Start: 02-09-2027 Glaucoma screening Diabetes: Retinopathy Screening [facility] Start: 07-22-2026 Glaucoma screening Diabetes: Retinopathy Screening [facility] Start: 11-16-2025 Glaucoma screening Diabetes: Retinopathy Screening [facility] Start: 11-03-2025 End: 11-03-2025 Patient encounter procedure 11/03/2025 1:00 PM EST [facility] [address] [place] [phone] Jose Brewer MD [address] [place] [phone] [facility] Start: 08-20-2025 Medicare Annual Wellness (AWV) Medicare Annual Wellness (AWV) [facility] Start: 08-16-2025 Hemoglobin A1c measurement Diabetes: Hemoglobin A1C [facility] Start: 06-13-2025 End: 06-13-2025 Patient encounter procedure 06/13/2025 1:00 PM EDT Office Visit [facility] [address] [place] [address] Delia Bustos MD [address] [place] [address] [facility] Start: 05-16-2025 Influenza vaccination Influenza Vaccine (#1) [facility] Start: 05-06-2025 Urine screening for protein Diabetes: Urine Protein Screening [facility] Start: 05-03-2025 End: 05-03-2025 Patient encounter procedure 05/03/2025 1:00 PM EDT [facility] [address] [place] [phone] Jose Brewer MD [address] [place] [phone] [facility] Start: 04-17-2025 Hemoglobin A1c measurement Diabetes: Hemoglobin A1C [facility] Start: 03-11-2025 Adult BMI Screening Adult BMI Screening [facility] Start: 03-11-2025 Tobacco Screening Tobacco Screening [facility] Start: 03-09-2025 Adult BMI Screening Adult BMI Screening [facility] Start: 03-09-2025 Tobacco Screening Tobacco Screening [facility] Start: 02-14-2025 End: 02-14-2026 25-hydroxyvitamin D3 [Mass/volume] in Serum or Plasma Vitamin D 25 hydroxy Total Lab Routine Type 2 diabetes mellitus with hyperglycemia, without long-term current use of insulin ([facility]) Expected: 02/14/2025 (Approximate), Expires: 02/14/2026 [facility] Work Phone: Comment on above: Expected: 02/14/2025 (Approximate), Expi res: 02/14/2026 Start: 02-14-2025 End: 02-14-2026 Lipid 1996 panel - Serum or Plasma Lipid panel Lab Routine Type 2 diabetes mellitus with hyperglycemia, without long-term current use of insulin ([facility]) Expected: 02/14/2025 (Approximate), Expires: 02/14/2026 [facility] Comment on above: Expected: 02/14/2025 (Approximate), Expi res: 02/14/2026 Start: 02-14-2025 End: 02-14-2026 Microalbumin/Creatinine panel in random Urine Microalbumin / creatinine urine ratio Lab Routine Type 2 diabetes mellitus with hyperglycemia, without long-term current use of insulin ([facility]) Expected: 02/14/2025 (Approximate), Expires: 02/14/2026 [facility] Comment on above: Expected: 02/14/2025 (Approximate), Expi res: 02/14/2026 Start: 02-14-2025 End: 02-14-2026 Renal function panel Renal function panel Lab Routine Type 2 diabetes mellitus with hyperglycemia, without long-term current use of insulin ([facility]) Expected: 02/14/2025 (Approximate), Expires: 02/14/2026 [facility] Comment on above: Expected: 02/14/2025 (Approximate), Expi res: 02/14/2026 Start: 02-14-2025 End: 02-14-2025 Patient encounter procedure [facility] Comment on above: Type 2 diabetes mellitus with hyperglyce mee, without long-term current use of insulin ([facility]) Start: 02-10-2025 Depression Screening Depression Screening [facility] Start: 01-26-2025 Tobacco Screening Tobacco Screening [facility] Start: 01-21-2025 Adult BMI Screening Adult BMI Screening [facility] Start: 01-20-2025 Adult BMI Screening Adult BMI Screening [facility] Start: 01-20-2025 Tobacco Screening Tobacco Screening [facility] Start: 01-19-2025 End: 01-19-2025 Patient encounter procedure 01/19/2025 9:00 AM EDT Office Visit [facility] [address] [place] [phone] Jose Brewer MD [address] [place] [phone] Arrived [facility] Comment on above: Arrived Start: 01-07-2025 Adult BMI Screening Adult BMI Screening [facility] Start: 01-07-2025 Tobacco Screening Tobacco Screening [facility] Start: 12-24-2024 Adult BMI Screening Adult BMI Screening [facility] Start: 12-24-2024 Tobacco Screening Tobacco Screening [facility] Start: 11-18-2024 Urine screening for protein Diabetes: Urine Protein Screening [facility] Start: 11-06-2024 Hemoglobin A1c measurement Diabetes: Hemoglobin A1C [facility] Start: 11-02-2024 End: 11-02-2024 Patient encounter procedure 11/02/2024 1:00 PM EST [facility] [address] [place] [phone] Jose Brewer MD [address] [place] [phone] [facility] Start: 10-18-2024 End: 10-18-2024 [facility] Comment on above: Type 2 diabetes mellitus with hyperglyce mee, without long-term current use of insulin ([facility]) Start: 09-29-2024 End: 09-29-2024 Patient encounter procedure 09/29/2024 1:40 PM EST Office Visit [facility] [address] [place] [phone] Delia Bustos MD [address], [address] [place] [address] [facility] Start: 08-25-2024 End: 08-25-2024 Patient encounter procedure 08/25/2024 2:00 PM EST Office Visit [facility] [address] [place] [phone] Chanelle Benz MD [address] [place] [address] 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 [facility] Comment on above: Bilateral hearing loss due to cerumen im paction Start: 08-20-2024 End: 08-20-2024 Patient encounter procedure 08/20/2024 11:45 AM EST Office Visit [facility] [address] [place] [address] Jose Brewer MD [address] [place] [address] Arrived [facility] Comment on above: Arrived Start: 07-24-2024 Adult BMI Screening Adult BMI Screening [facility] Start: 07-24-2024 Tobacco Screening Tobacco Screening [facility] Start: 06-24-2024 [facility] Start: 06-17-2024 Actin smooth muscle IgG Ab [Units/volume] in Serum [facility] Start: 06-17-2024 [id number] or marker [Mass/volume] in Serum or Plasma [facility] Start: 06-17-2024 Ceruloplasmin [Mass/volume] in Serum or Plasma [facility] Start: 06-17-2024 Hepatitis A virus Ab [Presence] in Serum by Immunoassay [facility] Start: 06-17-2024 Hepatitis A virus antibody, IgM type [facility] Start: 06-17-2024 Hepatitis B core antibody measurement [facility] Start: 06-17-2024 Hepatitis B core antibody measurement, IgM type [facility] Start: 06-17-2024 Hepatitis B virus surface Ab [Presence] in Serum [facility] Start: 06-17-2024 IgG [Mass/volume] in Serum or Plasma [facility] Start: 06-17-2024 Lipoprotein a [Moles/volume] in Serum or Plasma [facility] Start: 06-17-2024 Mitochondria M2 IgG Ab [Units/volume] in Serum [facility] Start: 06-17-2024 [facility] Start: 05-21-2024 Hemoglobin A1c measurement Diabetes: Hemoglobin A1C [facility] Start: 05-16-2024 COVID-19 Vaccine () COVID-19 Vaccine () [facility] Start: 05-16-2024 Influenza vaccination [facility] Start: 04-29-2024 End: 04-29-2024 Patient encounter procedure 04/29/2024 1:00 PM EDT Office Visit [facility] [address] [place] [address] Jose Brewer MD [address] [place] [address] [facility] Start: 03-11-2024 End: 03-11-2025 US Carotid arteries - bilateral Vas carotid duplex bilateral Vascular Ultrasound Routine History of CEA (carotid endarterectomy) Carotid stenosis, right Expected: 03/11/2024, Expires: [facility]11[facility]25 [facility]: Comment on above: Expected: 03/11/2024, Expires: Start: 02-26-2024 End: 02-26-2024 Patient encounter procedure 02/26/2024 10:20 AM EDT Office Visit [facility] [address] [place] [address] Brisa Enciso MD [address], [address] [address] [facility] Start: 02-17-2024 End: 02-17-2024 Patient encounter procedure 02/17/2024 10:30 AM EDT Appointment [facility] [address] [place] [phone] Brisa Enciso MD [address], [address] [address] [facility] Start: 02-11-2024 End: 02-11-2024 Admission to same day surgery center 02/11/2024 12:30 PM EDT - 02/11/2024 3:30 PM EDT Surgery [address] [place] [phone] Brisa Enciso MD [address], [address] [address] ENDARTERECTOMY CAROTID [21847 (CPT )] [facility] Comment on above: ENDARTERECTOMY CAROTID [57098 (CPT )] Start: 02-11-2024 Subsequent hospital visit by physician 02/11/2024 12:30 PM EDT Hospital Encounter [address] [phone] Brisa Enciso MD [address], [address] [address] [facility] Start: 02-11-2024 End: 02-11-2024 Teaec w/patch grf carotid vertb subclav neck inc ENDARTERECTOMY CAROTID CAROTID STENOSIS, ASYMPTOMATIC, LEFT 02/11/2024 12:30 PM EDT [facility] Start: 02-10-2024 End: 02-10-2024 Patient encounter procedure 02/10/2024 12:00 PM EDT Appointment [facility] [address] [place] [address] Brisa Enciso MD [address], [address] [place] [address] [facility] Start: 01-27-2024 End: 01-26-2025 Echo complete W/O contrast Echo complete W/O contrast Echocardiography Routine Carotid stenosis, asymptomatic, left Pre-op testing Expected: 01/27/2024, Expires: 01/26/2025 [facility] Work Phone: Comment on above: Expected: 01/27/2024, Expires: Start: 01-27-2024 End: 01-27-2024 Admission to same day surgery center 01/27/2024 12:00 PM EDT - 01/27/2024 3:00 PM EDT Surgery [facility] [address] [place] [address]. [place] [phone] Brisa Enciso MD [address], [address] [place] [address] ENDARTERECTOMY CAROTID [03266 (CPT )] [facility] Comment on above: ENDARTERECTOMY CAROTID [51602 (CPT )] Start: 01-27-2024 Subsequent hospital visit by physician 01/27/2024 12:00 PM EDT Hospital Encounter [facility] [address] [place] [address]. [place] [phone] Brisa Enciso MD [address], [address] [place] [address] [facility] Start: 01-27-2024 End: 01-27-2024 Teaec w/patch grf carotid vertb subclav neck inc ENDARTERECTOMY CAROTID Carotid stenosis, asymptomatic, left 01/27/2024 12:00 PM EDT [facility] Start: 01-22-2024 End: 01-22-2024 Patient encounter procedure 01/22/2024 11:20 AM EDT Office Visit [facility] [address] [place] [address] Brisa Enciso MD [address], [address] [address] [facility] Start: 01-08-2024 End: 01-07-2025 US.doppler Extremity arteries - bilateral for physiologic artery study Vas art doppler lwr bilat mult lev/PVR Vascular Ultrasound Routine Rest pain of both lower extremities due to atherosclerosis ([facility]) Expected: 01/08/2024, Expires: 01/07/2025 [facility] Work Phone: Comment on above: Expected: 01/08/2024, Expires: Start: 01-08-2024 End: 01-08-2024 Patient encounter procedure 01/08/2024 1:00 PM EDT Office Visit [facility] [address] [place] [address] Brisa Enciso MD [address], [address] [address] [facility] Start: 12-25-2023 End: 12-25-2023 Patient encounter procedure 12/25/2023 9:00 AM EDT Office Visit [facility] [address] [place] [address] Brisa Enciso MD [address], [facility] [address] [place] [address] [facility] Start: 10-30-2023 End: 10-30-2023 Patient encounter procedure 10/30/2023 2:15 PM EST Office Visit [facility] [address] [place] [phone] Jose Brewer MD [address] [place] [address] Arrived [facility] Comment on above: Arrived Start: 08-05-2021 Hemoglobin A1c measurement Diabetes: Hemoglobin A1C [facility] Start: 2001 Fall Risk Screening Fall Risk Screening [facility] Start: 1954 Adult BMI Follow Up Plan Adult BMI Follow Up Plan [facility] Start: 1948 Depression Screening Depression Screening [facility] Start: 1946 Glaucoma screening Diabetes: Retinopathy Screening [facility] Start: 1936 Medicare Annual Wellness (AWV) Medicare Annual Wellness (AWV) [facility] Start: 1936 Medicare Annual Wellness Visit Medicare Annual Wellness Visit [facility] Alpha 1 antitrypsin [Mass/volume] in Serum or Plasma [facility] Alpha 1 antitrypsin phenotyping [Identifier] in Serum or Plasma by Immunofixation [facility] Comprehensive metabo lic 1999 panel - Serum or Plasma [facility] Hepatitis B virus surface Ag [Presence] in Serum or Plasma by Immunoassay [facility] Hepatitis C virus Ig G Ab [Presence] in Serum or Plasma by Immunoassay [facility] HFE gene mutations found [Identifier] in Blood or Tissue by Molecular genetics method Nominal [facility] Homogenous nuclear A b pattern [Titer] in Serum [facility] Nuclear Ab [Titer] i n Serum [facility] Renal function 1999 panel - Serum or Plasma [facility] Renal function 1999 panel - Serum or Plasma [facility] US Liver [facility] Immunizations Immunization Date Immunization Notes Care Provider Fa cility 06-01-2024 influenza, high dose seasonal, preservative-free Charlotte Abrams [employer] Work Phone: [facility] 06-01-2024 Pneumococcal Conjuga te PCV 20 Charlotte Abrams MAXIM Work Phone: [facility] 06-01-2024 influenza virus vacc ine, unspecified formulation Jose Brewer MD Work Phone: [facility] 01-09-2024 RSV, bivalent, prote in subunit RSVpreF, diluent reconstituted, 0.5 mL, PF Brisa Enciso MD Work Phone: [facility] 06-13-2023 Influenza, High-dose , Quadrivalent Brisa Enciso MD Work Phone: [facility] 06-13-2023 influenza virus vacc ine, unspecified formulation Brisa Enciso MD Work Phone: [facility] 10-31-2022 Pneumococcal Conjuga te PCV 20 Delia Bustos MD Work Phone: [facility] 10-31-2022 tetanus toxoid, redu robert diphtheria toxoid, and acellular pertussis vaccine, adsorbed Delia Bustos MD Work Phone: [facility] 06-25-2022 Influenza, High-dose , Quadrivalent Brisa Enciso MD Work Phone: [facility] 06-15-2022 influenza virus vacc ine, unspecified formulation Delia Bustos MD Work Phone: [facility] 03-13-2022 zoster vaccine recombinant Brisa Enciso MD Work Phone: [facility] 01-31-2022 pneumococcal polysaccharide vaccine, 23 valent Brisa Enciso MD Work Phone: [facility] 12-14-2021 zoster vaccine recombinant Brisa Enciso MD Work Phone: [facility] 07-19-2021 Influenza Vaccine, Quadrivalent, Adjuvanted Brisa Enciso MD Work Phone: [facility] 05-06-2021 pneumococcal conjuga te vaccine, 13 valent Brisa Enciso MD Work Phone: [facility] 04-15-2021 influenza virus vacc ine, unspecified formulation Delia Bustos MD Work Phone: [facility] 06-16-2020 influenza, high dose seasonal, preservative-free Brisa Enciso MD Work Phone: [facility] 11-25-2018 influenza, injectabl e, quadrivalent, preservative free Brisa Enciso MD Work Phone: [facility] 11-20-2018 tetanus toxoid, redu robert diphtheria toxoid, and acellular pertussis vaccine, adsorbed Brisa Enciso MD Work Phone: [facility] 07-01-2018 influenza, injectabl e, quadrivalent, preservative free Brisa Enciso MD Work Phone: [facility] 06-15-2017 pneumococcal polysaccharide vaccine, 23 valent Brisa Enciso MD Work Phone: [facility] 05-16-2016 influenza virus vacc ine, unspecified formulation Delia Bustos MD Work Phone: [facility] 11-28-2015 pneumococcal polysaccharide vaccine, 23 valent Delia Bustos MD Work Phone: [facility] 11-28-2015 pneumococcal vaccine , unspecified formulation Delia Bustos MD Work Phone: [facility] 05-16-2015 influenza virus vacc ine, unspecified formulation Delia Bustos MD Work Phone: [facility] 12-21-2014 zoster vaccine, live Brisa Enciso MD Work Phone: [facility] 11-28-2014 pneumococcal conjuga te vaccine, 13 valent Delia Bustos MD Work Phone: [facility] 09-15-2014 influenza virus vacc ine, unspecified formulation Delia Bustos MD Work Phone: [facility] 01-28-2014 tetanus toxoid, redu robert diphtheria toxoid, and acellular pertussis vaccine, adsorbed Delia Bustos MD Work Phone: [facility] 06-15-2013 influenza virus vacc ine, unspecified formulation Delia Bustos MD Work Phone: [facility] Healthcare Payers Date Payer Category Payer Medicaid [employer] MEDICARE A DVANTAGE [id number] 2022 Medicare [id number] 2022 Medicare HMO [employer] MEDICARE [id number] 1959 Medicare [id number] [id number] 1959 Self-pay [id number] 1959 Unknown [id number] 1936 Unknown [id number] 2.16.840.1.441814.3.579.2.647 1936 Unknown [id number] 2.16.840.1.237753.3.579.2.593 1936 Unknown [id number] 2.16.840.1.044776.3.579.2.593 1936 Unknown [id number] 2.16.840.1.719107.3.579.2.593 1936 Unknown [id number] 2.16.840.1.991098.3.579.2.593 1936 Unknown [id number] 2.16.840.1.863928.3.579.2.593 1936 Unknown [id number] 2.16.840.1.160299.3.579.2.593 1936 Unknown [id number] 2.16.840.1.876782.3.579.2.593 1936 Unknown [id number] 2.840.1.199357.3.579.2.593 1936 Unknown [id number] 2.16.840.1.337267.3.579.2.593 1936 Unknown [id number] 2..840.1.782105.3.579.2.593 1936 Unknown [id number] 2.16840.1.075385.3.579.2.593 1936 Unknown [id number] 2.840.1.254734.3.579.2.593 1936 Unknown [id number] 2.16.840.1.922374.3.579.2.593 1936 Unknown [id number] 2.16.840.1.465564.3.579.2.593 1936 Unknown [id number] 2.16.840.1.712830.3.579.2.593 1936 Unknown [id number] 2.16.840.1.104259.3.579.2.593 1936 Unknown [id number] 2.16.840.1.164957.3.579.2.1286 1936 Unknown [id number] 2.16.840.1.873066.3.579.2.1285 1936 Unknown [id number] 2.16.840.1.243047.3.579.2.1285 1936 Unknown [id number] 2.16.840.1.130774.3.579.2.1285 1936 Unknown [id number] 2.16.840.1.831674.3.579.2.1285 1936 Unknown [id number] 2.840.1.515775.3.579.2.1285 1936 Unknown [id number] 2.840.1.777059.3.579.2.1285 1936 Unknown [id number] 2.840.1.317265.3.579.2.1285 1936 Unknown [id number] 2.840.1.125675.3.579.2.1285 1936 Unknown [id number] 2.840.1.928340.3.579.2.1258 1936 Unknown [id number] 2.840.1.446373.3.579.2.1258 1936 Unknown [id number] 2.840.1.453591.3.579.2.1258 1936 Unknown [id number] .840.1.750856.3.579.2.1258 1936 Unknown [id number] 2.840.1.217896.3.579.2.1258 1936 Unknown [id number] 2.840.1.012308.3.579.2.1258 1936 Unknown [id number] 2.840.1.835862.3.579.2.1259 1936 Unknown [id number] 2.16.840.1.036105.3.579.2.1286 1936 Unknown [id number] 2.16.840.1.034998.3.579.2.1286 Medicare Medicare [id number] Unknown [id number] 2.16840.1.811281.3.579.2.531 Unknown [id number] 2.16.840.1.966665.3.579.2.531 Unknown [id number] 2.16840.1.915021.3.579.2.531 Unknown [id number] Social History Date Type Detail Facility Unknown if ever smoked [employer] Other Start: 10-08-2023 End: 10-30-2023 Sex Assigned At [employer] Other Start: 1935 Sex Assigned At Male [facility] Start: 10-08-2023 End: 10-30-2023 Tobacco smoking status MTIS Ex-smoker [facility] End: 09-15-2011 History of [...] on 1 occasion? Never [facility] Start: 04-29-2024 End: 05-03-2025 Alcoholic beverage intake Ex-drinker (finding) [facility] Start: 04-20-2015 End: 10-19-2024 Sex Male (finding) [facility] Start: 01-08-2024 End: 03-11-2024 Alcoholic beverage intake Current non-drinker of alcohol (finding) [facility] Unknown [employer] Has the electric, [employer], [employer], or water [employer] threatened to shut off services in your home in past 12Mo No [facility] Procedure Code Equipment Code Equipment Original Text Equipment Identifier Dates [id number] Start: 12-31-2016 End: 09-13-2024 1 each by Other route if needed [id number] Start: 08-06-2023 Use as instructed [id number] Start: 09-13-2024 3 times a day [id number] Start: 09-13-2024 USE ONE STRIP TO TEST FOUR TIMES A DAY [id number] Start: 09-02-2024 End: 09-13-2024 Patch Cv 8x.8cm N-Pyrg Tpr End [employer] Decellularized Bvn Rpl [id number] Start: 02-11-2024 ACCU-CHEK SOFTCL IX LANCETS lancets [id number] Start: 12-31-2016 USE THREE TIMES A DAY. [id number] St art: 10-18-2024 3 times a day [id number] Start: 10-18-2024 USE 1 TEST STRIP 3 TIMES A DAY [id number] Start: 03-14-2025 Goals Date Patient Goal Desired Activity /State Personal health goal Comment on above: Formatting of this n ote might be different from the original. Evaluation of progress towards goal: Safe dc return home with family support and resume with [facility]. Clinical Notes 01-14-2022 to 05-03-2025 Jose Brewer MD - 05/03/2025 1:51 PM EDElias Brewer MD - 05/03/2025 1:51 PM Zoya Brewer MD - 05/03/2025 1:50 PM EDElias Brewer MD - 05/03/2025 1:50 PM EDT Note Date & Type Note Facility 05-03-2025 History of Present illness Narrative Associated Problem(s): Type 2 diabetes mellitus with microalbuminuria, without long-term current use of insulin ([facility]) BS stable and monitor. Associated Problem(s): Osteoarthritis Pain stable and use OTC PRN. Associated Problem(s): Gastroesophageal reflux disease without esophagitis Worsening symptoms and resume protonix. Associated Problem(s): COPD (chronic obstructive pulmonary disease) ([facility]) Breathing stable and follow with pulmonology. Associated Problem(s): Chronic heart failure with preserved ejection fraction (HFpEF) ([facility]) Edema stable and continue medication. Wear compression stockings daily. Elevated legs PRN. Associated Problem(s): Benign essential hypertension BP stable and monitor PRN. Images from the original note were not included. Subjective Patient ID: Carlo Henderson is a 89 y.o. male who presents for Follow-up (6m/), Nausea (With dry heaves yesterday, better today, but happening multiple times a month), and Epistaxis (Nose Bleed). Follow up DM, HTN, CHF, OA shoulder, and GERD. Patient stable today. Following with endocrinology and recent A1C 6.8. No recent changes to medication. Tries to eat well and stick to ADA diet. Denies signs of elevated BS such as polyuria, polyphagia or polydipsia. Checking BP PRN and typically controlled. BP low today. Taking medication daily. Edema controlled with medication. Mild swelling at end of day and if on feet a lot. Edema improved in am and with elevation. Following with cardiology. OA stable. Pain in hips, knees, and shoulder. Pain with activity and hard to get up from sitting. Using OTC and pain tolerable. C/o nausea and frequent dry heaves. Symptoms occur at least once a week. Symptoms typically start early in am before eating. Severe nausea and frequent dry heaves. Symptoms last hours to all day. Review of medication shows patient no longer on protonix. Epistaxis (Nose Bleed) Review of Systems Constitutional: Negative for fatigue. [...] Items Addressed This Visit Benign essential hypertension BP stable and monitor PRN. Chronic heart failure with preserved ejection fraction (HFpEF) ([facility]) Edema stable and continue medication. Wear compression stockings daily. Elevated legs PRN. COPD (chronic obstructive pulmonary disease) ([facility]) Breathing stable and follow with pulmonology. Type 2 diabetes mellitus with microalbuminuria, without long-term current use of insulin ([facility]) - Primary BS stable and monitor. Gastroesophageal reflux disease without esophagitis Worsening symptoms and resume protonix. Relevant Medications pantoprazole (ProtoNix) 40 MG EC tablet Osteoarthritis Pain stable and use OTC PRN. documented in this encounter [facility] 02-14-2025 History of Present illness Narrative Images from the original note were not included. Carlo Henderson is a 89 y.o. male No ref. provider found presents with chief complaint of Diabetes and Follow-up HPI: 01/2025 History of Present Illness The patient is an 89-year-old male who presents for a follow-up of diabetes. He is on Januvia 50 mg once a day, Jardiance 25 mg once a day, and glimepiride 4 mg twice a day. Results Laboratory Studies A1c is 6.8. Blood sugar is 105. IM 10/2024 follow up visit on 10/18/2024 A1c 9.1, BG 217, he is on januvia 50 mg daily , glimpride 4 mg bid, jardiance 25m g daily. IM 05/2024 follow up visit on 05/26/2024 A1c 9.5, BG 423, he is on januvia 50 mg daily , glimpride 4 mg bid, jardiance 25m g daily. CGM 0-30-70 AVG 205 IM 02/2024 follow up visit on 02/24/2024 A1c 9.3, BG 264, he is on januvia 50 mg daily , glimpride 4 mg bid, jardiance 25m g daily. IM 11/2023 follow up visit on 11/25/2023 A1c 10.4, BG 337, he is on januvia 50 mg daily , glimpride 2 mg bid. meter 100% in high range, AVG 273. IM 08/2023 follow up visit on 08/26/2023 A1c 10.3, BG 217 , he is on januvia 50 mg daily , glimpride 2 mg bid. IM 04/2023 follow up visit on 04/29/2023 A1c 8.8, BG 202, he is on januvia 50 mg daily , glimpride 2 mg bid, meter 0-33-57 %, avg 205 IM 12/2022 follow up visit on 12/31/2022 A1c 7.8, BG 270, he is on januvia 50 mg daily , glimpride 2 mg bid, meter 0-78-22 %, avg 158 IM 05/2022 follow up visit on 05/27/2022 A1c 8.6, BG 415, he is on januvia 50 mg daily , glimpride 2 mg only once at dinner IM 05/2022 follow up visit on 05/27/2022 A1c 6.4 he is on januvia 50 mg daily on and off due to cost. IM 11/2021 follow up visit on 11/19/2021 A1c 6.1 he is on januvia 50 mg daily and off actos 15 mg daily, BG better and feels better Interim History 08/05 Follow-up visit 07/30/21 for type 2 diabetes. We did CGM for him and 1% good range, 91 in good range, 8 high range, average 128. We did lab BUN 36, creatinine 2.04, GFR 31, hemoglobin 7.8. I told him he need to follow with revenue accountant under primary care recommendation. Total cholesterol 111, HDL 44, triglycerides 71, LDL 52, vitamin D 31, albumin over creatinine 51, and C-peptide 4.7. He is on Actos 15 mg once a day. HPI: 07/2021 New patient sent from [facility] for uncontrolled diabetes. A1C in the office was 7. Blood sugar 203. He has anemia, GI bleed; but he started back on aspirin and Plavix per doctor. He has swelling in his legs. The only medication currently for his diabetes is pioglitazone 15 mg. He is off metformin, I think due to his kidney function, since he was with chronic renal failure while in the hospital. at bedside. Blood sugars reviewed from his logbook running from 140-210. SUBJECTIVE: MEDICATIONS: Current Outpatient Medications Medication Instructions albuterol HFA 90 mcg/act inhaler 1 puff atorvastatin (Lipitor) 40 MG tablet Every 24 hours bumetanide (BUMEX) 0.5 mg, Every 24 hours calcium carbonate (Os-Shira) 1250 (500 Ca) MG tablet 1 tablet, 2 times daily carvedilol (Coreg) 6.25 MG tablet 1 tablet, 2 times daily with meals clopidogrel (PLAVIX) 75 mg clotrimazole (Lotrimin) 1 % cream Topical, 2 times daily cyanocobalamin (VITAMIN B-12) 1,000 mcg, Daily empagliflozin (JARDIANCE) 25 mg, Oral, Daily ferrous sulfate 65 mg, Daily with breakfast glimepiride (AMARYL) 2 mg, Oral, 2 times daily glucose blood ([employer] Verio) test strip USE THREE TIMES A DAY. Glycopyrrolate-Formoterol 9-4.8 MCG/ACT aerosol 2 puffs, 2 times daily hydrOXYzine HCl (ATARAX) 25 mg Lancets ([employer] Delica Plus [id number]) misc 3 times a day lisinopril 20 mg, Oral, Daily magnesium oxide 420 MG tablet 1 tablet, Daily meclizine (ANTIVERT) 25 mg, 4 times daily PRN pantoprazole (PROTONIX) 40 mg SITagliptin (JANUVIA) 50 mg, Oral, Daily spironolactone (Aldactone) 50 MG tablet 1 tablet, Daily tamsulosin (FLOMAX) 0.4 mg, Daily RT vancomycin (VANCOCIN) 125 mg, 4 times daily ALLERGIES: Allergies Allergen Reactions Penicillins Diarrhea, Nausea And Vomiting, GI intolerance and Unknown Cefdinir Diarrhea Shellfish Allergy Rash Past Medical History: Diagnosis Date Anemia Aortic valve stenosis At moderate risk for fall B12 deficiency Benign essential hypertension ([facility]) Bilateral carotid artery stenosis CAD (coronary artery disease) ([facility]) Chronic constipation Chronic diastolic heart failure ([facility]) 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 COPD (chronic obstructive pulmonary disease) ([facility]) PFT 09/20/2020 -FEV1/FVC: 62% -FEV1: 69% -FVC: 77% -Bronchodilator response: None -RV: 127% -T% -DLCO: 57% -Flow-volume loop: Moderate obstruction COPD with acute exacerbation ([facility]) Coronary artery disease, occlusive ([facility]) CRF (chronic renal failure) Diabetes ([facility]) Dietary counseling and surveillance Dyslipidemia ([facility]) Dyspepsia Dyspnea Encounter for long-term (current) use of medications Gastroenteritis History of TIA (transient ischemic attack) History of tobacco abuse HTN (hypertension) ([facility]) Hx of being hospitalized 10/29/2020 Electrolytes ICU 4 days Hyperlipidemia ([facility]) Hypomagnesemia Iron deficiency anemia secondary to blood loss (chronic) Mixed hyperlipidemia ([facility]) Nonallergic rhinitis Nonrheumatic aortic (valve) stenosis Orthostatic hypotension Osteoarthritis of fingers of both hands Superficial phlebitis and thrombophlebitis of left lower extremity Superficial phlebitis and thrombophlebitis of right lower extremity Type 2 diabetes mellitus with microalbuminuria, without long-term current use of insulin ([facility]) Type 2 diabetes mellitus with other diabetic kidney complication Varicose veins of bilateral lower extremities with pain Ventral hernia without obstruction or gangrene Vertigo Vitamin D deficiency, unspecified Past Surgical History: Procedure Laterality Date CATARACT EXTRACTION, BILATERAL COLONOSCOPY 2016 COLONOSCOPY 06/2021 CORONARY ANGIOPLASTY WITH STENT PLACEMENT x 2 CT ANGIOGRAM ABDOMEN PELVIS 02/29/2024 CT ANGIOGRAM ABDOMEN PELVIS 02/29/2024 EGD 04/2021 with bx- [facility] HERNIA REPAIR 1989 REVERSE TOTAL SHOULDER ARTHROPLASTY Left 03/10/2019 SUZETTE VC ENDOVENOUS ABL 1ST V RT 02/21/2022 REVIEW OF SYMPTOMS: 14 POINT OF SYSTEM REVIEWED AND NEGATIVE OBJECTIVE: Constitutional: Afebrile @ home; no weakness or night sweats SKIN: No change in skin color; no itching, rash or lesions; no hair loss; HEENT: No HAs or injury; no dizziness; No difficulty with vision; no eye pain, discharge or lesions; no hearing loss or difficulty; no nasal discharge, NECK: No pain, limitation of motion, lumps or swollen glands RESP: No cough, wheezing or difficulty breathing. No CP with breathing; CARDIO: No CP , SOB or fatigue, No edema, palpitations or dyspnea with exertion GI: No N/V/D or abd. pain; good appetite with no recent change. No heart burn, liver or gallbladder disease; no rectal bleeding or pain : No urinary pain , frequency or odor. MUSCULOSKELETAL: No muscle pain or cramps; no extremity weakness.No joint pain, stiffness, swelling or limitation of movement NEUROLOGY: No H/O seizures, stroke or fainting. No weakness, tremors. Hematology: No bleeding problems or excessive bruising ENDOCRINE: No increase in hunger, thirst or urination; admits compliance to medical management plan Feet: numbness tingling yes , ulcers or skin break no Lab Results Component Value Date HGBA1C 6.8 02/14/2025 HGBA1C 9.1 10/18/2024 Lab Results Component Value Date GLU 105 02/14/2025 GLU 75 01/14/2025 GLU 217 10/18/2024 05/26/2024 2:09 PM 08/20/2024 11:32 AM 08/25/2024 1:42 PM 10/18/2024 1:53 PM 11/02/2024 1:17 PM 01/19/2025 9:12 AM 02/14/2025 1:20 PM Vitals BMI 29.21 kg/m2 29.38 kg/m2 29.54 kg/m2 28.57 kg/m2 29.21 kg/m2 30.67 kg/m2 29.21 kg/m2 BSA (m2) 1.96 m2 1.96 m2 1.97 m2 1.93 m2 1.96 m2 2 m2 1.96 m2 Systolic 94 114 90 100 98 122 100 Diastolic 48 50 57 62 50 50 56 Heart Rate 60 84 80 82 77 82 80 SpO2 96 % 90 % 96 % 99 % 98 % 95 % Temp 96.2 F 97.1 F 97.5 F Resp 16 20 18 18 18 18 Height (in) 5' 6 5' 6 5' 6 5' 6 5' 6 5' 6 5' 6 Weight (lb) 181 182 183 177 181 190 181 Visit Report Report Report Report Report Report Report ' ASSESSMENT AND PLAN: Assessment/Plan Diagnoses and all orders for this visit: Type 2 diabetes mellitus with hyperglycemia, without long-term current use of insulin ([facility]) - POCT glucose manually resulted - POCT glycosylated hemoglobin (Hb A1C) docked device - SITagliptin (Januvia) 50 MG tablet; Take 1 tablet (50 mg) by mouth Daily - glimepiride (Amaryl) 2 MG tablet; Take 1 tablet (2 mg) by mouth in the morning and 1 tablet (2 mg) before bedtime. - Vitamin D 25 hydroxy Total; Future - Microalbumin / creatinine urine ratio; Future - Lipid panel; Future - Renal function panel; Future Vitamin D deficiency Primary hypertension ([facility]) Hyperlipemia, mixed ([facility]) Encounter for dietary consultation Stage 3b chronic kidney disease (HCC) ([facility]) Type 2 diabetes mellitus with hyperglycemia, with long-term current use of insulin ([facility]) - empagliflozin (Jardiance) 25 MG; Take 1 tablet (25 mg) by mouth Daily Assessment & Plan 1. Diabetes Mellitus. His A1c is 6.8 and blood sugar is 105. He is currently on Januvia 50 mg once a day, Jardiance 25 mg once a day, and glimepiride 4 mg twice a day. He will continue with Januvia and Jardiance at the same dosages. Glimepiride will be reduced to 2 mg twice a day. He can cut his current tablets in half until a new prescription is sent. Follow up in about 4 months (around 06/16/2025). documented in this encounter [facility] 01-19-2025 History of Present illness Narrative Associated Problem(s): Type 2 diabetes mellitus with microalbuminuria, without long-term current use of insulin ([facility]) BS stable and monitor. Associated Problem(s): Clostridium difficile colitis Much improved and complete vanco. Add probiotic and recommend activia. Images from the original note were not included. Subjective Patient ID: Carlo Henderson is a 89 y.o. male who presents for Follow-up ([facility] f/u). ER follow up from 01/14 for C. Diff colitis. Developed nausea, vomiting, and diarrhea off and on x 3 weeks. Frequent abdominal cramping and watery stool. Decreased appetite and not eating well. BS low 30-50 and was still taking medication. To ER and stool positive for C. Diff. Given oral vancomycin and much improved. Stool now formed and slowed down. No further pain or cramping. Appetite normal and BS stable. Review of Systems Constitutional: Negative for fatigue. [...] Assessment/Plan Problem List Items Addressed This Visit Type 2 diabetes mellitus with microalbuminuria, without long-term current use of insulin ([facility]) BS stable and monitor. Clostridium difficile colitis - Primary Much improved and complete vanco. Add probiotic and recommend activia. documented in this encounter [facility] 11-02-2024 History of Present illness Narrative Associated Problem(s): COPD (chronic obstructive pulmonary disease) ([facility]) Breathing stable and follow with pulmonology. Associated Problem(s): Other cirrhosis of liver (CMS/HCC) Follow with GI. Associated Problem(s): Type 2 diabetes mellitus with microalbuminuria, without long-term current use of insulin ([facility]) Reports BS elevated and follow up with [...] Associated Problem(s): Benign essential hypertension (CMS/HCC) BP low and very lightheaded. Decrease lisinopril. Monitor PRN. Images from the original note were not included. Subjective Patient ID: Carlo Henderson is a 88 y.o. male who presents for Follow-up (6m) and Dizziness (With nausea ). Follow up DM, HTN, CHF, OA shoulder, and GERD. Patient doing well today. Following with endocrinology and recent A1C 9.1. Checking BS and doesn't remember numbers but states remains elevated. No recent changes to medication. Tries to eat well and stick to ADA diet. Denies signs of elevated BS such as polyuria, polyphagia or polydipsia. Checking BP PRN and typically controlled. BP low today. Taking medication daily. Starting to have signs of low BP and often feels lightheaded when up and moving or changing positions. Edema controlled with medication. Mild swelling at end of day and if on feet a lot. Edema improved in am and with elevation. OA shoulder stable. Pain in right shoulder and decreased ROM. At times limiting activity but pain tolerable. GERD controlled with omeprazole. Denies epigastric pain or burning and not waking up with symptoms. Dizziness Pertinent negatives include no abdominal pain, chest pain, coughing, fatigue, nausea or vomiting. Review of Systems Constitutional: Negative for fatigue. Respiratory: Negative for cough, shortness of breath and wheezing. Cardiovascular: Negative for chest pain and palpitations. Gastrointestinal: Negative for abdominal pain, diarrhea, nausea and vomiting. Genitourinary: Negative for dysuria. Neurological: Positive for dizziness. Objective Physical Exam Constitutional: General: He is [...] This Visit Benign essential hypertension (CMS/HCC) BP low and very lightheaded. Decrease lisinopril. Monitor PRN. Relevant Medications lisinopril 20 MG tablet Chronic heart failure with preserved ejection fraction (HFpEF) (CMS/HCC) Edema stable and continue medication. Wear compression stockings daily. Elevated legs PRN. Primary osteoarthritis of shoulders, bilateral Mild pain but tolerable and use OTC PRN. Type 2 diabetes mellitus with microalbuminuria, without long-term current use of insulin (CMS/HCC) - Primary Reports BS elevated and follow up with endocrinology. Stick to ADA diet and limit carbs. Gastroesophageal reflux disease without esophagitis Symptoms controlled with protonix and continue. Other Visit Diagnoses Type 2 diabetes mellitus with hyperglycemia, with long-term current use of insulin (CMS/HCC) Relevant Medications empagliflozin (Jardiance) 25 MG documented in this encounter [facility] 10-18-2024 History of Present illness Narrative Carlo Henderson is a 88 y.o. male Delia Bustos MD presents with chief complaint of Diabetes and Follow-up HPI: IM 10/2024 follow up visit on 10/18/2024 A1c 9.1, BG 217, he is on januvia 50 mg daily , glimpride 4 mg bid, jardiance 25m g daily. 05/2024 follow up visit on 05/26/2024 A1c 9.5, BG 423, he is on januvia 50 mg daily , glimpride 4 mg bid, jardiance 25m g daily. CGM 0-30-70 AVG 205 IM 02/2024 follow up visit on 02/24/2024 A1c 9.3, BG 264, he is on januvia 50 mg daily , glimpride 4 mg bid, jardiance 25m g daily. 11/2023 follow up visit on 11/25/2023 A1c 10.4, BG 337, he is on januvia 50 mg daily , glimpride 2 mg bid. meter 100% in high range, AVG 273. 08/2023 follow up visit on 08/26/2023 A1c 10.3, BG 217 , he is on januvia 50 mg daily , glimpride 2 mg bid. IM 04/2023 follow up visit on 04/29/2023 A1c 8.8, BG 202, he is on januvia 50 mg daily , glimpride 2 mg bid, meter 0-33-57 %, avg 205 IM 12/2022 follow up visit on 12/31/2022 A1c 7.8, BG 270, he is on januvia 50 mg daily , glimpride 2 mg bid, meter 0-78-22 %, avg 158 IM 05/2022 follow up visit on 05/27/2022 A1c 8.6, BG 415, he is on januvia 50 mg daily , glimpride 2 mg only once at dinner IM 05/2022 follow up visit on 05/27/2022 A1c 6.4 he is on januvia 50 mg daily on and off due to cost. IM 11/2021 follow up visit on 11/19/2021 A1c 6.1 he is on januvia 50 mg daily and off actos 15 mg daily, BG better and feels better Interim History 08/05 Follow-up visit 07/30/21 for type 2 diabetes. We did CGM for him and 1% good range, 91 in good range, 8 high range, average 128. We did lab BUN 36, creatinine 2.04, GFR 31, hemoglobin 7.8. I told him he need to follow with revenue accountant under primary care recommendation. Total cholesterol 111, HDL 44, triglycerides 71, LDL 52, vitamin D 31, albumin over creatinine 51, and C-peptide 4.7. He is on Actos 15 mg once a day. HPI: 07/2021 New patient sent from [facility] for uncontrolled diabetes. A1C in the office was 7. Blood sugar 203. He has anemia, GI bleed; but he started back on aspirin and Plavix per doctor. He has swelling in his legs. The only medication currently for his diabetes is pioglitazone 15 mg. He is off metformin, I think due to his kidney function, since he was with chronic renal failure while in the hospital. at bedside. Blood sugars reviewed from his logbook running from 140-210. SUBJECTIVE: MEDICATIONS: Current Outpatient Medications Medication Instructions albuterol HFA 90 mcg/act inhaler 1 puff aspirin 81 MG EC tablet 1 tablet, Daily atorvastatin (Lipitor) 40 MG tablet Every 24 hours bumetanide (BUMEX) 0.5 mg, Every 24 hours calcium carbonate (Os-Shira) 1250 (500 Ca) MG tablet 1 tablet, 2 times daily carvedilol (Coreg) 6.25 MG tablet 1 tablet, 2 times daily with meals clopidogrel (PLAVIX) 75 mg clotrimazole (Lotrimin) 1 % cream Topical, 2 times daily cyanocobalamin (VITAMIN B-12) 1,000 mcg, Daily ferrous sulfate 65 mg, Daily with breakfast glimepiride (Amaryl) 4 MG tablet TAKE 1 TABLET BY MOUTH DAILY TAKE WITH BREAKFAST OR FIRST MAIN MEAL OF THE DAY glucose blood (RegenesanceTouch Verio) test strip Use as instructed Glycopyrrolate-Formoterol 9-4.8 MCG/ACT aerosol 2 puffs, 2 times daily hydrOXYzine HCl (ATARAX) 25 mg Januvia 50 mg Jardiance 10 mg, Oral, Daily Lancets (OneTouch Delica Plus [id number]) misc 3 times a day lisinopril 40 MG tablet 1 tablet, Daily magnesium oxide 420 MG tablet 1 tablet, Daily meclizine (ANTIVERT) 25 mg, 4 times daily PRN pantoprazole (PROTONIX) 40 mg spironolactone (Aldactone) 50 MG tablet 1 tablet, Daily tamsulosin (FLOMAX) 0.4 mg, Daily RT ALLERGIES: Allergies Allergen Reactions Penicillins Diarrhea, Nausea And Vomiting, GI intolerance and Unknown Cefdinir Diarrhea Shellfish Allergy Rash Past Medical History: Diagnosis Date Anemia Aortic valve stenosis At moderate risk for fall B12 deficiency Benign essential hypertension ([facility]) Bilateral carotid artery stenosis CAD (coronary artery disease) ([facility]) Chronic constipation Chronic diastolic heart failure ([facility]) 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 COPD (chronic obstructive pulmonary disease) ([facility]) PFT 09/20/2020 -FEV1/FVC: 62% -FEV1: 69% -FVC: 77% -Bronchodilator response: None -RV: 127% -T% -DLCO: 57% -Flow-volume loop: Moderate obstruction COPD with acute exacerbation ([facility]) Coronary artery disease, occlusive ([facility]) CRF (chronic renal failure) Diabetes ([facility]) Dietary counseling and surveillance Dyslipidemia ([facility]) Dyspepsia Dyspnea Encounter for long-term (current) use of medications Gastroenteritis History of TIA (transient ischemic attack) History of tobacco abuse HTN (hypertension) ([facility]) Hx of being hospitalized 10/29/2020 Electrolytes ICU 4 days Hyperlipidemia ([facility]) Hypomagnesemia Iron deficiency anemia secondary to blood loss (chronic) Mixed hyperlipidemia ([facility]) Nonallergic rhinitis Nonrheumatic aortic (valve) stenosis Orthostatic hypotension Osteoarthritis of fingers of both hands Superficial phlebitis and thrombophlebitis of left lower extremity Superficial phlebitis and thrombophlebitis of right lower extremity Type 2 diabetes mellitus with microalbuminuria, without long-term current use of insulin ([facility]) Type 2 diabetes mellitus with other diabetic kidney complication ([facility]) Varicose veins of bilateral lower extremities with pain Ventral hernia without obstruction or gangrene Vertigo Vitamin D deficiency, unspecified Past Surgical History: Procedure Laterality Date CATARACT EXTRACTION, BILATERAL COLONOSCOPY 2016 COLONOSCOPY 06/2021 CORONARY ANGIOPLASTY WITH STENT PLACEMENT x 2 CT ANGIOGRAM ABDOMEN PELVIS 02/29/2024 CT ANGIOGRAM ABDOMEN PELVIS 02/29/2024 EGD 04/2021 with bx- [facility] HERNIA REPAIR 1989 REVERSE TOTAL SHOULDER ARTHROPLASTY Left 03/10/2019 JAB VC ENDOVENOUS ABL 1ST V RT 02/21/2022 REVIEW OF SYMPTOMS: 14 POINT OF SYSTEM REVIEWED AND NEGATIVE OBJECTIVE: Constitutional: Afebrile @ home; no weakness or night sweats SKIN: No change in skin color; no itching, rash or lesions; no hair loss; HEENT: No HAs or injury; no dizziness; No difficulty with vision; no eye pain, discharge or lesions; no hearing loss or difficulty; no nasal discharge, NECK: No pain, limitation of motion, lumps or swollen glands RESP: No cough, wheezing or difficulty breathing. No CP with breathing; CARDIO: No CP , SOB or fatigue, No edema, palpitations or dyspnea with exertion GI: No N/V/D or abd. pain; good appetite with no recent change. No heart burn, liver or gallbladder disease; no rectal bleeding or pain : No urinary pain , frequency or odor. MUSCULOSKELETAL: No muscle pain or cramps; no extremity weakness.No joint pain, stiffness, swelling or limitation of movement NEUROLOGY: No H/O seizures, stroke or fainting. No weakness, tremors. Hematology: No bleeding problems or excessive bruising ENDOCRINE: No increase in hunger, thirst or urination; admits compliance to medical management plan Feet: numbness tingling yes , ulcers or skin break no Lab Results Component Value Date HGBA1C 9.1 10/18/2024 Lab Results Component Value Date GLU 217 10/18/2024 GLU 159 (H) 10/11/2024 GLU 208 (H) 04/26/2024 Visit Vitals BP 100/62 Pulse 82 Resp 18 Ht 5' 6 Wt 177 lb SpO2 96% BMI 28.57 kg/m Smoking Status Former BSA 1.93 m ASSESSMENT AND PLAN: Assessment/Plan Diagnoses and all orders for this visit: Type 2 diabetes mellitus with hyperglycemia, without long-term current use of insulin ([facility]) - POCT glucose manually resulted - POCT glycosylated hemoglobin (Hb A1C) docked device We will continue with Januvia 50 mg once a day, glimepiride 4 mg twice a day, Jardiance 10 mg once a day. Vitamin D deficiency Primary hypertension (CMS/HCC) Hyperlipemia, mixed (CMS/HCC) Encounter for dietary consultation Diet and exercise reviewed with the patient Stage 3b chronic kidney disease (HCC) (CMS/HCC) GFR around 30 he is following his revenue accountant Follow up in about 4 months (around 02/15/2025). documented in this encounter [facility] 09-06-[address] [facility] Cardiology Clinic Note Chief Complaint: Patient here for 10 mo follow up CAD, hypertension, chronic systolic heart failure, and aortic valve stenosis. Had lipids back in November, and echo in May 2024. Says his BERG remains unchanged from last visit. Denies chest pain, palpitations, and lightheadedness/syncope. HPI: Carlo Henderson is a 88 y.o. male with a history of coronary artery disease, s/p PCI of the LAD in 2018, moderate aortic stenosis and chronic kidney disease stage III; he underwent a right heart catheterization 07/2020 Update 11/03/2023: Doing well. 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 Denies recent weight gain. No orthopnea, no [...] to moderate mitral (more content not included)... [facility] 08-25-2024 History of Present illness Narrative Images from the original note were not included. Subjective Patient ID: Carlo Henderson is a 88 y.o. male who presents for Cerumen Impaction Family History Problem Relation Name Age of Onset COPD Mother Other cancer Mother Varicose Veins Heart disease Father Diabetes Sibling Active Ambulatory Problems Diagnosis Date Noted Chronic kidney disease, stage 3b (HCC) ([facility]) 05/05/2021 Chronic venous insufficiency of lower extremity 09/04/2020 Coronary artery disease ([facility]) 10/30/2023 PAD (peripheral artery disease) ([facility]) 06/11/2021 B12 deficiency 10/30/2023 Benign essential hypertension ([facility]) 10/30/2023 Chronic heart failure with preserved ejection fraction (HFpEF) ([facility]) 10/30/2023 COPD (chronic obstructive pulmonary disease) ([facility]) 10/30/2023 Dyslipidemia ([facility]) 10/30/2023 Nonrheumatic aortic valve stenosis 10/30/2023 Primary osteoarthritis of shoulders, bilateral 10/30/2023 Type 2 diabetes mellitus with microalbuminuria, without long-term current use of insulin ([facility]) 10/30/2023 Gastroesophageal reflux disease without esophagitis 10/30/2023 Skin candidiasis 10/30/2023 Carotid stenosis, asymptomatic, left 12/25/2023 Carotid stenosis, right 03/11/2024 Chronic kidney disease 11/03/2023 History of CEA (carotid endarterectomy) 03/11/2024 Hyperlipidemia ([facility]) 11/03/2023 Osteoarthritis 11/03/2023 Other cirrhosis of liver ([facility]) 03/15/2024 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 08/20/2024 Resolved Ambulatory Problems Diagnosis Date Noted Gastroenteritis 03/15/2024 Past Medical History: Diagnosis Date Anemia At moderate risk for fall Bilateral carotid artery stenosis CAD (coronary artery disease) ([facility]) Chronic constipation Chronic diastolic heart failure ([facility]) 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 COPD with acute exacerbation ([facility]) Coronary artery disease, occlusive ([facility]) Diabetes ([facility]) Dyspepsia Encounter for long-term (current) use of medications History of TIA (transient ischemic attack) History of tobacco abuse HTN (hypertension) ([facility]) Hx of being hospitalized 10/29/2020 Hypomagnesemia Iron [...] Procedure Laterality Date CATARACT EXTRACTION, BILATERAL COLONOSCOPY 2017 COLONOSCOPY 06/2021 CORONARY ANGIOPLASTY WITH STENT PLACEMENT [...] mg by mouth. Lancets (OneTouch Delica Plus [id number]) misc 3 times a day 100 each [...] comments: Left cerumen impaction Patient ID: Carlo Henderson is a 88 y.o. male. Procedures Cerumen was removed from the left ear using binocular microscopy under micro with foreceps Assessment/Plan Diagnoses and all orders for this visit: Left ear impacted cerumen - Ambulatory referral to ENT Ear cleaned documented in this encounter [facility] 08-20-2024 History of Present illness Narrative Associated Problem(s): 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 Ears plugged and bilateral impaction on exam. Ears irrigated with water and cerumen removed with speculum. Able to clear right canal but left remains impacted. Will refer to ENT. Images from the original note were not included. Subjective Patient ID: Carlo Henderson is a 88 y.o. male who presents [...] q-tips inside ear. documented in this encounter [facility] 06-17-2024 Evaluation note Authored June 17, [...] of liver diseases. Will check MELD labs [facility] Work Phone: [phone] History of Present illness Narrative* Brisa Enciso MD - 03/11/2024 10:20 AM EDT VASCULAR SURGERY NOTE HPI Carlo Henderson is a 88 y.o. male comes in for post op evaluation after undergoing left carotid endarterectomy. He is recovering well. On exam looks great, wound is clean, dry and intact. No signs or symptoms of infection. Pain appears well controlled. Assessment Diagnoses and all orders for this visit: History of CEA (carotid endarterectomy) - Vas carotid duplex bilateral; Future Carotid stenosis, right - Vas carotid duplex bilateral; Future Plan Plan Carlo Henderson will call with any changes or worsening of symptoms. Follow up 1 year with a carotid duplex ultrasound to evaluate the repair and also the contralateral stenosis.. [facility] + Plan note* Assessment & Plan Note - Brisa Enciso MD - 01/22/2024 11:41 AM EDT Associated Problem(s): PAD (peripheral artery disease) ([facility]) He does not have significant occlusive disease. Will continue with medical therapy [facility] Evaluation + Plan note* Assessment & Plan Note - Brisa Enciso MD - 01/22/2024 11:41 AM EDTAssociated Problem(s): Bilateral carotid bruits Left carotid endarterectomy [facility]05-09-2024 Miscellaneous Notes* Assessment & Plan Note - Brisa Enciso MD - 01/22/2024 11:41 AM EDTAssociated Problem(s): PAD (peripheral artery disease) ([facility]) He does not have significant occlusive disease. Will continue with medical therapy * Assessment & Plan Note - Brisa Enciso MD - 01/22/2024 11:41 AM EDT Associated Problem(s): Bilateral carotid bruits Left carotid endarterectomy [facility] History of Present illness Narrative* Brisa Enciso MD - 01/22/2024 11:20 AM EDT Images from the original note were not included. To: JOSE BREWER MD HPI: Carlo Henderson is a 88 y.o. male with Carlo Henderson is a 88 y.o. male with bilateral ICA stenosis. RIGHT: 50-69% stenosis of the internal carotid artery. Antegrade vertebral artery flow. LEFT: >70% stenosis of the internal carotid artery. Antegrade vertebral artery flow. He is scheduled for left carotid endarterectomy. He had rest pain in lower extremities was concern of peripheral tear disease. He had PVR. He has normal ABIs.. Review of Systems: Review of Systems Constitutional: [...] a day with meals. 60 tablet 0 chlorthalidone (HYGROTON) 25 mg tablet Take 1 tablet (25 mg total) by mouth daily. (Patient not taking: Reported on 12/18/2023) clopidogreL (PLAVIX) 75 mg tablet Take 1 tablet (75 mg total) by mouth in the morning. cyanocobalamin 1000 MCG tablet Take 1 tablet (1,000 mcg total) by mouth daily. 30 tablet 0 empagliflozin (JARDIANCE) 10 mg tablet tablet Take 1 tablet (10 mg total) by mouth in the morning. ferrous sulfate 325 (65 FE) mg EC tablet Take 1 tablet (325 mg total) by mouth in the morning and 1tablet (325 mg total) at noon and 1 tablet (325 mg total) in the evening. Take with meals. fluticasone furoate-vilanteroL (BREO ELLIPTA) 100-25 mcg/dose blister with device Inhale 1 puff in the morning. glimepiride (AMARYL) 4 mg tablet Take 1 tablet (4 mg total) by mouth every morning before breakfast. glycopyrrolate-formoteroL (BEVESPI AEROSPHERE) 9-4.8 mcg HFA aerosol inhaler Inhale 2 puffs in the morning and 2 puffs before bedtime. (Patient not taking: Reported on 01/08/2024) hydrOXYzine (ATARAX) 25 mg tablet Take 1 tablet (25 mg total) by mouth 3 (three) times a day as needed for itching. ipratropium (ATROVENT) 21 mcg (0.03 %) nasal spray Administer 2 sprays into each nostril in the morning and 2 sprays before bedtime. JANUVIA 50 mg tablet Take 1 tablet (50 mg total) by mouth in the morning. lisinopriL (PRINIVIL,ZESTRIL) 40 mg tablet Take 1 tablet (40 mg total) by mouth in the morning. (Patient not taking: Reported on 01/08/2024) magnesium oxide 420 mg tablet Take 1 tablet by mouth in the morning. meclizine (ANTIVERT) 25 mg tablet Take 1 tablet (25 mg total) by mouth 4 (four) times a day as needed for dizziness. fuqotdkq-owbf-FB-calcium &mins (THERAGRAN-M) 9 mg iron-400 mcg tablet Take 1 tablet by mouth inthe morning. pantoprazole (PROTONIX) 40 mg EC tablet Take 1 tablet (40 mg total) by mouth every morning before breakfast. 30 tablet 0 pioglitazone (ACTOS) 15 mg tablet Take 1 tablet (15 mg total) by mouth in the morning. (Patient nottaking: Reported on 01/08/2024) spironolactone (ALDACTONE) 50 mg tablet Take 1 tablet (50 mg total) by mouth in the morning. (Patient not taking: Reported on 01/08/2024) SUPREP BOWEL PREP KIT 17.5-3.13-1.6 gram recon soln 177 ml,actual weight, 2 times daily, Oral (Patient not taking: Reported on 12/18/2023) 177 mL 0 tamsulosin (FLOMAX) 0.4 mg capsule Take 1 capsule (0.4 mg total) by mouth nightly. No current facility-administered medications on file prior to visit. Past Medical History: Past Medical History: Diagnosis Date Carotid stenosis, asymptomatic, left 2023 Chronic kidney disease COPD (chronic obstructive pulmonary disease) ([facility]) Dental disease full upper and lower dentures Diabetes mellitus ([facility]) Diabetes mellitus type 2, controlled ([facility]) BERG (dyspnea on exertion) Heart disease HL (hearing loss) no aids Hyperlipidemia Hypertension St[facility] 1990 Visual impairment glasses Past Surgical History: Past Surgical History: Procedure Laterality Date COLONOSCOPY CORONARY ANGIOPLASTY WITH STENT PLACEMENT stents x2 EGD Left Lateral 05/07/2021 Performed by Dominic Jamison DO at [facility] HERNIA REPAIR x2 TOTAL SHOULDER REPLACEMENT Social and Family History: Social History Socioeconomic History Marital status: Spouse name: Not on file Number of children: Not on file Years of education: Not on file Highest education level: Not on file Occupational History Not on file Tobacco Use Smoking status: Former Current packs/day: 0.50 Average packs/day: 0.5 packs/day for 30.0 years (15.0 ttl pk-yrs) Types: Cigars, Cigarettes Smokeless tobacco: Never Vaping Use Vaping status: Never Used Substance and Sexual Activity Alcohol use: No Drug use: No Sexual activity: Defer Partners: Female Other Topics Concern Coffee Yes Tea No Carbonated Beverages Yes Chocolate Yes Social History Narrative Not on file Social Determinants of Health Financial Resource Strain: Not on file Food Insecurity: No Food Insecurity (01/21/2024) Hunger Screening Food Insecurity - Worry: Never True Food Insecurity - Inability: Never True Transportation Needs: Not on file Physical Activity: Not on file Stress: Not on file Social Connections: Not on file Interpersonal Safety: Unknown (11/06/2023) [facility] [place] [facility] Fear of Current or Ex-Partner: Not on file Emotionally Abused: Not on file Physically Abused: Not on file Sexually Abused: Not on file Physically or Sexually Abused: Not on file Housing Instability: Not on file Family History Problem Relation Age of Onset Heart disease Father Arthritis Father Emphysema Father Diabetes Brother Anesthesia problems Neg Hx Recent Labs: Recent and relative labs were reviewed and interpreted and contributed to the assessment and plan below. Vitals: BP 102/68 (BP Site: Left Arm, BP Postition: Sitting, BP CUFF SIZE: L (13-17 inches)) Pulse 78 Ht 165.1 cm (5' 5 ) Wt 85.4 kg (188 lb 3.2 oz) BMI 31.32 kg/m Body mass index is 31.32 kg/m . Physical Exam: Physical Exam Constitutional: [...] content normal. Judgment: Judgment normal. Recent testing: PVR carotid duplex ultrasound Assessment and Plan: Problem List Bilateral carotid bruits Current Assessment & Plan Left carotid endarterectomy PAD (peripheral artery disease) ([facility]) - Primary Current Assessment & Plan He does not have significant occlusive disease. Will continue with medical therapy Carlo was seen today for leg pain. Diagnoses and all orders for this visit: PAD (peripheral artery disease) ([facility]) Bilateral carotid bruits Brisa Enciso MD, NANO, RPVI, FSVS, FACS [facility] [facility] This note was created with the assistance of a speech recognition program. While intending to generate a timely document that accurately reflects the content of the visit, no guarantee can be provided that every grammatical or spelling mistake has been or will be identified or corrected. Thank you for your understanding. [facility] Instructions* Pre- Procedure Instructions - Lyssa Clarke RN - 01/21/2024 12:02 PM EDT Your surgery/procedure is scheduled at [facility] on 01/27/24 at 12:00 pm Arrival Time 10:00 am [facility] Address: [address] [place] [address] in Parking lot located on [facility]. Report to the Entrance B. Check in at the information desk the surgery. The waiting room located on the second floor. If you have any questions prior to surgery, please call Pre-Admission Clinic at [phone] between 7:30 am and 4:30 pm Friday through Friday. If you have questions the morning of surgery, please call the Pre-op Department at [phone]. Notify your SURGEON if you develop any illness such as a cold, cough, fever, sore throat, vomiting or are hospitalized between now and your surgery. CONTINUE TO TAKE YOUR MEDICATIONS PRESCRIBED. DO NOT STOP YOUR PRESCRIBED MEDICATIONS UNLESS DIRECTED BY YOUR PRESCRIBING PHYSICIAN Take the following medications the morning of surgery with a sip of water: per Dr. Enciso's office Weight loss medications: n/a Take inhalers as prescribed the morning of surgery. . Blood thinners: Medications such as Coumadin, Heparin, Aspirin, Plavix, Eliquis, Pradaxa) Please contact your physician regarding a stop/hold date for these medications. Diabetics: If you take insulin, contact your prescribing doctor for instructions on how to manage this the night before and the morning of surgery. Non-steriodal Anti-Inflammatory Drugs (NSAIDS)- Stop 3 days prior to surgery unless otherwise directed by your surgeon. Vitamins/Herbal Products: You may continue to take your prescribed vitamins such as potassium, iron, vitamin B, vitamin C, or multivitamin unless specifically instructed by your surgeon to stop. STOPtaking all herbal products/teas one week prior to your surgery. Marijuana: Stop marijuana 72 hours prior to surgery, stop CBD oil 48 hours prior to surgery. If you have been given bowel prep instructions by your surgeon, please call the surgeon's office with any questions about these instructions. What do I do the day of Surgery? Age 2 through adult - Stop all solids by midnight, You may have clear liquids up to 2 hours before surgery, unless otherwise instructed by your surgeon. Clear liquids are: water, sports drinks such as Gatorade or G2, or apple juice. You may NOT have: tube feedings, dairy products, alcoholic beverages, orange juice, or any liquids with solids or pulp in it. If applicable, shower again with CHG soap the morning of your surgery. If you received a green plastic bracelet, bring it with you the day of surgery and your nurse will put it on you. In order to help prevent infection post-operatively, you may be asked to use a CHG mouthwash when you arrive to the Pre-op area. Your nurse will provide instruction the morning of. What do I need to do to prepare for surgery? If you will be going home the same day as your surgery, arrange for an adult over [address] Riding in a bus or taxi by yourself is not permitted. You should not smoke or drink alcohol 24 hours before your surgery. Alcohol thins the blood and may cause bleeding problems during surgery. Smoking increases the risk of breathing problems after surgery. If you have been assigned ANNIE Education by your surgeon's office, please complete this education prior to your surgery. For questions regarding ANNIE education, reach out to your surgeon's office. If you have been given a prescription for occupational, physical or speech therapy, please set up these appointments before your procedure. If you would like to schedule therapy at a [facility] facility, please call [phone] ([phone]). Do not use lotions, creams, powders, perfume, make up, cologne or after-shaves day of surgery. Remove ALL jewelry including wedding rings, body piercings,hair extensions that contain metal, nailpolish, make-up, and contact lens. You may brush your teeth the morning of surgery, but do not swallow the water. Wear your dentures and partial plates to the hospital (no adhesive). Shower the night the before. If applicable, use the CHG (chlorhexidine gluconate) soap or wipes What should I bring to the hospital? If you received a green plastic bracelet, bring it with you the day of surgery and your nurse will put it on you. Eyeglass or contact lens case If you will be spending the night, please bring personal care items and leave them in the car untilyou are taken to your room after surgery. Leave ALL valuables at home. If any of these instructions conflict with those you received from the surgeon, please seek clarification from your surgeon's office. DEEP BREATHING EXERCISES This exercise helps promote good air exchange and helps to prevent pneumonia after surgery. Breathe in slowly and deeply through the nose. Hold your breath for a few seconds and then exhale slowly through the mouth. Repeat this three times and then cough.Coughing helps to clear your lungs. If you have had a surgery with an incision into your abdomen or chest, press gently against your incision with a pillow or a folded blanket when you cough. Please be aware - it may not be nichole to cough following some types of surgeries involving the eyes,ears, sinuses and throat. Always follow your doctor's instructions. LEG EXERCISE These exercises help promote good circulation and help to prevent blood clots after surgery. Point your toes to the ceiling and then point them to the wall. Do this slowly about 15-20 times. You may also move your feet in circles. Do the exercise that is most comfortable for you. If you have had surgery involving your shoulder or arm, we recommend you move your fingers. PRACTICING We ask that you begin practicing these exercises before your surgery. After surgery try to do both exercises at least every 2 hours during the day and early evening. SURGICAL SITE INFECTION PREVENTION What is a Surgical Site Infection? Infection can happen to the area of the body where surgery is done. This is called a surgical site infection (SSI). A SSI does not happen very often. Can SSIs be treated? Antibiotics are used to treat SSI. Some patients may need another surgery to treat the infection. The doctor will discuss treatment options with you. What are some of the things that hospitals are doing to prevent SSIs? Soap and water or alcohol hand rub are used before and after caring for each patient. Special soap is used to clean surgery workers hands and arms just before the surgery. Masks, gowns, gloves and hair covers are worn during the surgery to keep the area clean. Hair in the surgery area may be removed with clippers (not razors). A special soap that kills germs is used to clean the skin at the surgery site. Antibiotics may be given before the surgery starts. What can you do to prevent SSIs? Before surgery: You may be asked to shower or bathe with a special soap that kills germs the night before and the day of surgery. Use the soap as you were told. If you smoke, stop or cut down. Ask your doctor about ways to quit. Do not shave near where you will have surgery. Shaving can irritate the skin and make it easier to get and infection. After surgery: Be sure that the doctors and nurses clean their hands before and after touching you. Be sure your family and friends clean their hands before and after visiting you. Do not be afraid to remind them. * Care for your wound at home as told by your doctor or nurse * Call your doctor right away if you have fever, redness, increased pain, or drainage at the surgery site. Further questions? Contact the doctor, nurse or the Infection Prevention and Control department if you have any questions. PATIENT RIGHTS AND RESPONSIBILITIES As a patient at [facility], you have the right to: Receive medical care and be informed of who is taking care of you Be treated with dignity and respect Have a family member/technical sales representative of choice and your physician notified of your admission Receive information and actively participate in decisions about your care and treatment Refuse care, treatment and services Decide who may provide your support and speak for you Access hindu and spiritual services Participate in ethical issues and questions about your care Receive private and confidential care Have appropriate assessment and management of your pain Know guest visitation restrictions or limitations Have an advance directive Access protective services Consent or refuse to participate in research studies or production or recordings, films or other images Have resolution of your complaints Receive information of hospital charges and payment methods Patient/patient technical sales representative responsibilities are to: Provide information about health status to facilitate care, treatment and services Follow the treatment, plan, keep appointments and speak up when you do not understand the plan Respect the rights of other patients and healthcare personnel Follow organizational rules and regulations that support quality care and a safe environment Fulfill financial obligations as promptly as possible Bathing Before Surgery- Patients greater than 2 months of age You can help to lower your chance of infection at the site of your surgery by showering or bathing with a special soap called chlorhexidine gluconate (CHG). Germs live on your skin. This special soapwill help lower the amount of germs so they do not get into your surgery site. Special points to know: Do not use this soap if you know that you are allergic to CHG. Shower or bathe with CHG the night before and the morning of surgery. Do not shave the area of your body where the surgery will be done within 7 days of surgery. The CHG may make your skin a little dry, but do not use lotion. Steps for Bathing: Wash your hair as usual with your normal shampoo. Rinse your hair and body well after you shampoo to get rid all of the shampoo. Wash gently with the CHG from the neck down, but do not scrub the skin to hard. Be sure to wash thearea of your surgery very well. If showering, turn the water off while washing and then turn the water back onto rinse. Do not get CHG in the genital (private) area. Do not get CHG in the eyes, ears, nose or mouth. (If the soap gets into the eyes, flush them immediately with water). Do not wash with regular soap after CHG is used. Pat skin dry with a soft, clean towel. Patient should sleep in freshly laundered night clothes and report for surgery in clean clothes. [facility]05-08-2024 Miscellaneous Notes* Pre-Procedure Instructions - Lyssa Clarke RN - 01/21/2024 12:02 PM EDT Your surgery/procedure is scheduled at [facility] on 01/27/24 at 12:00 pm Arrival Time 10:00 am [facility] Address: [address] [place] [address] in [address] located on [facility]. Report to the Entrance B. Check in at the information desk the surgery. The waiting room located on the second floor. If you have any questions prior to surgery, please call Pre-Admission Clinic at [phone] between 7:30 am and 4:30 pm Friday through Friday. If you have questions the morning of surgery, please call the Pre-op Department at [phone]. Notify your SURGEON if you develop any illness such as a cold, cough, fever, sore throat, vomiting or are hospitalized between now and your surgery. CONTINUE TO TAKE YOUR MEDICATIONS PRESCRIBED. DO NOT STOP YOUR PRESCRIBED MEDICATIONS UNLESS DIRECTED BY YOUR PRESCRIBING PHYSICIAN Take the following medications the morning of surgery with a sip of water: per Dr. Enciso's office Weight loss medications: n/a Take inhalers as prescribed the morning of surgery. . Blood thinners: Medications such as Coumadin, Heparin, Aspirin, Plavix, Eliquis, Pradaxa) Please contact your physician regarding a stop/hold date for these medications. Diabetics: If you take insulin, contact your prescribing doctor for instructions on how to manage this the night before and the morning of surgery. Non-steriodal Anti-Inflammatory Drugs (NSAIDS)- Stop 3 days prior to surgery unless otherwise directed by your surgeon. Vitamins/Herbal Products: You may continue to take your prescribed vitamins such as potassium, iron, vitamin B, vitamin C, or multivitamin unless specifically instructed by your surgeon to stop. STOPtaking all herbal products/teas one week prior to your surgery. Marijuana: Stop marijuana 72 hours prior to surgery, stop CBD oil 48 hours prior to surgery. If you have been given bowel prep instructions by your surgeon, please call the surgeon's office with any questions about these instructions. What do I do the day of Surgery? Age 2 through adult - Stop all solids by midnight, You may have clear liquids up to 2 hours before surgery, unless otherwise instructed by your surgeon. Clear liquids are: water, sports drinks such as Gatorade or G2, or apple juice. You may NOT have: tube feedings, dairy products, alcoholic beverages, orange juice, or any liquids with solids or pulp in it. If applicable, shower again with CHG soap the morning of your surgery. If you received a green plastic bracelet, bring it with you the day of surgery and your nurse will put it on you. In order to help prevent infection post-operatively, you may be asked to use a CHG mouthwash when you arrive to the Pre-op area. Your nurse will provide instruction the morning of. What do I need to do to prepare for surgery? If you will be going home the same day as your surgery, arrange for an adult over [address] Riding in a bus or taxi by yourself is not permitted. You should not smoke or drink alcohol 24 hours before your surgery. Alcohol thins the blood and may cause bleeding problems during surgery. Smoking increases the risk of breathing problems after surgery. If you have been assigned ANNIE Education by your surgeon's office, please complete this education prior to your surgery. For questions regarding ANNIE education, reach out to your surgeon's office. If you have been given a prescription for occupational, physical or speech therapy, please set up these appointments before your procedure. If you would like to schedule therapy at a [facility] facility, please call [phone] ([phone]). Do not use lotions, creams, powders, perfume, make up, cologne or after-shaves day of surgery. Remove ALL jewelry including wedding rings, body piercings,hair extensions that contain metal, nailpolish, make-up, and contact lens. You may brush your teeth the morning of surgery, but do not swallow the water. Wear your dentures and partial plates to the hospital (no adhesive). Shower the night the before. If applicable, use the CHG (chlorhexidine gluconate) soap or wipes What should I bring to the hospital? If you received a green plastic bracelet, bring it with you the day of surgery and your nurse will put it on you. Eyeglass or contact lens case If you will be spending the night, please bring personal care items and leave them in the car untilyou are taken to your room after surgery. Leave ALL valuables at home. If any of these instructions conflict with those you received from the surgeon, please seek clarification from your surgeon's office. DEEP BREATHING EXERCISES This exercise helps promote good air exchange and helps to prevent pneumonia after surgery. Breathe in slowly and deeply through the nose. Hold your breath for a few seconds and then exhale slowly through the mouth. Repeat this three times and then cough.Coughing helps to clear your lungs. If you have had a surgery with an incision into your abdomen or chest, press gently against your incision with a pillow or a folded blanket when you cough. Please be aware - it may not be nichole to cough following some types of surgeries involving the eyes,ears, sinuses and throat. Always follow your doctor's instructions. LEG EXERCISE These exercises help promote good circulation and help to prevent blood clots after surgery. Point your toes to the ceiling and then point them to the wall. Do this slowly about 15-20 times. You may also move your feet in circles. Do the exercise that is most comfortable for you. If you have had surgery involving your shoulder or arm, we recommend you move your fingers. PRACTICING We ask that you begin practicing these exercises before your surgery. After surgery try to do both exercises at least every 2 hours during the day and early evening. SURGICAL SITE INFECTION PREVENTION What is a Surgical Site Infection? Infection can happen to the area of the body where surgery is done. This is called a surgical site infection (SSI). A SSI does not happen very often. Can SSIs be treated? Antibiotics are used to treat SSI. Some patients may need another surgery to treat the infection. The doctor will discuss treatment options with you. What are some of the things that hospitals are doing to prevent SSIs? Soap and water or alcohol hand rub are used before and after caring for each patient. Special soap is used to clean surgery workers hands and arms just before the surgery. Masks, gowns, gloves and hair covers are worn during the surgery to keep the area clean. Hair in the surgery area may be removed with clippers (not razors). A special soap that kills germs is used to clean the skin at the surgery site. Antibiotics may be given before the surgery starts. What can you do to prevent SSIs? Before surgery: You may be asked to shower or bathe with a special soap that kills germs the night before and the day of surgery. Use the soap as you were told. If you smoke, stop or cut down. Ask your doctor about ways to quit. Do not shave near where you will have surgery. Shaving can irritate the skin and make it easier to get and infection. After surgery: Be sure that the doctors and nurses clean their hands before and after touching you. Be sure your family and friends clean their hands before and after visiting you. Do not be afraid to remind them. * Care for your wound at home as told by your doctor or nurse * Call your doctor right away if you have fever, redness, increased pain, or drainage at the surgery site. Further questions? Contact the doctor, nurse or the Infection Prevention and Control department if you have any questions. PATIENT RIGHTS AND RESPONSIBILITIES As a patient at [facility], you have the right to: Receive medical care and be informed of who is taking care of you Be treated with dignity and respect Have a family member/technical sales representative of choice and your physician notified of your admission Receive information and actively participate in decisions about your care and treatment Refuse care, treatment and services Decide who may provide your support and speak for you Access hindu and spiritual services Participate in ethical issues and questions about your care Receive private and confidential care Have appropriate assessment and management of your pain Know guest visitation restrictions or limitations Have an advance directive Access protective services Consent or refuse to participate in research studies or production or recordings, films or other images Have resolution of your complaints Receive information of hospital charges and payment methods Patient/patient technical sales representative responsibilities are to: Provide information about health status to facilitate care, treatment and services Follow the treatment, plan, keep appointments and speak up when you do not understand the plan Respect the rights of other patients and healthcare personnel Follow organizational rules and regulations that support quality care and a safe environment Fulfill financial obligations as promptly as possible Bathing Before Surgery- Patients greater than 2 months of age You can help to lower your chance of infection at the site of your surgery by showering or bathing with a special soap called chlorhexidine gluconate (CHG). Germs live on your skin. This special soapwill help lower the amount of germs so they do not get into your surgery site. Special points to know: Do not use this soap if you know that you are allergic to CHG. Shower or bathe with CHG the night before and the morning of surgery. Do not shave the area of your body where the surgery will be done within 7 days of surgery. The CHG may make your skin a little dry, but do not use lotion. Steps for Bathing: Wash your hair as usual with your normal shampoo. Rinse your hair and body well after you shampoo to get rid all of the shampoo. Wash gently with the CHG from the neck down, but do not scrub the skin to hard. Be sure to wash thearea of your surgery very well. If showering, turn the water off while washing and then turn the water back onto rinse. Do not get CHG in the genital (private) area. Do not get CHG in the eyes, ears, nose or mouth. (If the soap gets into the eyes, flush them immediately with water). Do not wash with regular soap after CHG is used. Pat skin dry with a soft, clean towel. Patient should sleep in freshly laundered night clothes and report for surgery in clean clothes. 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 (CMS-HCC) PVR and follow up [facility]04-25-2024 Evaluation + Plan note* Assessment & Plan Note - Brisa Encios MD - 01/08/2024 1:21 PM EDTAssociated Problem(s): Carotid stenosis, asymptomatic, left Left CEA Cleared by cardiology [facility]04-25-2024 Miscellaneous Notes* Assessment & Plan Note - Brisa Enciso MD - 01/08/2024 1:21 PM EDTAssociated Problem(s): Rest pain of both lower extremities due to atherosclerosis ([facility]) PVR and follow up * Assessment & Plan Note - Brisa Enciso MD - 01/08/2024 1:21 PM EDT Associated Problem(s): Carotid stenosis, asymptomatic, left Left CEA Cleared by cardiology documented in this encounterR[facility] History of Present illness Narrative* Brisa Enciso MD - 01/08/2024 1:00 PM EDT Images from the original note were not included. To: JOSE BREWER MD HPI: Carlo Henderson is a 88 y.o. male with What moderate right ICA stenosis and severe left ICA stenosis. He was cleared by cardiology. The plan is to do left carotid endarterectomy. He has significant leg pain that bothers him at night. He does not have any testing for this rest pain. He does not have palpable pedal pulses. We discussed getting PVR first and then we will proceed with a left carotidendarterectomy.. Review of Systems: Review of Systems Constitutional: [...] a day with meals. 60 tablet 0 clopidogreL (PLAVIX) 75 mg tablet Take 1 tablet (75 mg total) by mouth in the morning. cyanocobalamin 1000 MCG tablet Take 1 tablet (1,000 mcg total) by mouth daily. 30 tablet 0 empagliflozin (JARDIANCE) 10 mg tablet tablet Take 1 tablet (10 mg total) by mouth in the morning. ferrous sulfate 325 (65 FE) mg EC tablet Take 1 tablet (325 mg total) by mouth in the morning and 1tablet (325 mg total) at noon and 1 tablet (325 mg total) in the evening. Take with meals. fluticasone furoate-vilanteroL (BREO ELLIPTA) 100-25 mcg/dose blister with device Inhale 1 puff in the morning. glimepiride (AMARYL) 4 mg tablet Take 1 tablet (4 mg total) by mouth every morning before breakfast. hydrOXYzine (ATARAX) 25 mg tablet Take 1 tablet (25 mg total) by mouth 3 (three) times a day as needed for itching. ipratropium (ATROVENT) 21 mcg (0.03 %) nasal [...] times a day as needed for dizziness. fpylxuki-gqfc-AR-calcium &mins (THERAGRAN-M) 9 mg iron-400 mcg tablet Take 1 tablet by mouth inthe morning. pantoprazole (PROTONIX) 40 mg EC tablet Take 1 tablet (40 mg total) by mouth every morning before breakfast. 30 tablet 0 tamsulosin (FLOMAX) 0.4 mg capsule Take 1 capsule (0.4 mg total) by mouth nightly. chlorthalidone (HYGROTON) 25 mg tablet Take 1 tablet (25 mg total) by mouth daily. (Patient not taking: Reported on 12/18/2023) glycopyrrolate-formoteroL (BEVESPI AEROSPHERE) 9-4.8 mcg HFA aerosol inhaler Inhale 2 puffs in the morning and 2 puffs before bedtime. (Patient not taking: Reported on 01/08/2024) lisinopriL (PRINIVIL,ZESTRIL) 40 mg tablet Take 1 tablet (40 mg total) by mouth in the morning. (Patient not taking: Reported on 01/08/2024) pioglitazone (ACTOS) 15 mg tablet Take 1 tablet (15 mg total) by mouth in the morning. (Patient nottaking: Reported on 01/08/2024) spironolactone (ALDACTONE) 50 mg tablet Take 1 tablet (50 mg total) by mouth in the morning. (Patient not taking: Reported on 01/08/2024) SUPREP BOWEL PREP KIT 17.5-3.13-1.6 gram recon soln 177 ml,actual weight, 2 times daily, Oral (Patient not taking: Reported on 12/18/2023) 177 mL 0 No current facility-administered medications on file prior to visit. Past Medical History: Past Medical History: Diagnosis Date COPD (chronic obstructive pulmonary disease) ([facility]) Diabetes mellitus ([facility]) Diabetes mellitus type 2, controlled ([facility]) Heart disease Hypertension Past Surgical History: Past Surgical History: Procedure Laterality Date CORONARY ANGIOPLASTY WITH STENT PLACEMENT EGD Left Lateral 05/07/2021 Performed by Dominic Jamison DO at [facility] Social and Family History: Social [...] Interpersonal Safety: Unknown (11/06/2023) [facility] [place] [facility] Fear of Current [...] the assessment and plan below. Vitals: BP 103/56 (BP Site: Left Arm, BP Postition: Sitting, BP CUFF SIZE: L (13-17 inches)) Pulse 88 Ht 165.1 cm (5' 5 ) Wt 83.9 kg (185 lb) BMI 30.79 kg/m Body mass index is 30.79 kg/m . Physical Exam: Physical Exam Constitutional: [...] duplex US Assessment and Plan: Problem List Carotid stenosis, asymptomatic, left - Primary Current Assessment & Plan Left CEA Cleared by cardiology Rest pain of both lower extremities due to atherosclerosis ([facility]-HCC) Current Assessment & Plan PVR and follow up Relevant Orders Vas art doppler lwr bilat mult lev/PVR Carlo was seen today for follow up after cardiac clearance. Diagnoses and all orders for this visit: Carotid stenosis, asymptomatic, left Rest pain of both lower extremities due to atherosclerosis (CMS-HCC) - Vas art doppler lwr bilat mult lev/PVR; Future Brisa Enciso MD, NANO, RPVI, FSVS, FACS [facility] This note was created with the assistance of a speech recognition program. While intending to generate a timely document that accurately reflects the content of the visit, no guarantee can be provided that every grammatical or spelling mistake has been or will be identified or corrected. Thank you for your understanding. [facility] Evaluation + Plan note* Assessment & Plan Note - Brisa Enciso MD - 12/25/2023 9:24 AM EDT Associated Problem(s): Left carotid artery stenosis L CEA versus stenting for high grade stenosis Needs cardiac clearance first [facility]04-11[facility] Miscellaneous Notes* Assessment & Plan Note - Brisa Enciso MD - 12/25/2023 9:24 AM EDTAssociated Problem(s): Left carotid artery stenosis L CEA versus stenting for high grade stenosis Needs cardiac clearance first [facility] History of Present illness Narrative* Brisa Enciso MD - 12/25/2023 9:00 AM EDT Images from the original note were not included. To: JOSE BREWER MD HPI: Carlo Henderson is a 88 y.o. male with bilateral [...] Diagnosis Date COPD (chronic obstructive pulmonary disease) ([facility]) Diabetes mellitus ([facility]) Diabetes mellitus type 2, controlled ([facility]) Heart disease Hypertension Past Surgical History: Past Surgical History: Procedure Laterality Date CORONARY ANGIOPLASTY WITH STENT PLACEMENT EGD Left Lateral 05/07/2021 Performed by Dominic Jamison DO at [facility] Social and Family History: Social [...] Interpersonal Safety: Unknown (11/06/2023) [facility] from [facility] [place] [facility] Fear of Current [...] artery stenosis Chronic kidney disease, stage 3b ([facility]-HCC) Brisa Enciso MD, NANO, RPVI, FSVS, FACS [...] you for your understanding. [facility] Chief Complaint: Patient here for 6 mo follow up CAD, hypertension, chronic systolic heart failure, and aortic valve stenosis. Had carotid US in May and labs in Jun 2023. He was started on Jardiance recently by his supervisor [employer]. Patient denies chest pain, palpitations, and lightheadedness/syncope. Says his BERG is better with inhaler. HPI: Carlo Henderson is a 87 y.o. male with a history of coronary artery disease, s/p PCI of the LAD in 2018, moderate aortic stenosis and chronic kidney disease stage III; he underwent a right heart catheterization 07/2020 Update 11/03/2023: Doing well. 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 Denies recent weight gain. No orthopnea, no paroxysmal external dyspnea. Leg swelling is stable. Cardiology ROS: Review of Systems Cardiovascular: Positive for dyspnea on exertion (improving) and leg swelling (controlled w/ compression stockings). All other systems reviewed and are negative. Past Medical History He has a past medical history of CHF (congestive heart failure) ([facility]/HCC), Coronary artery disease, Heart valve disease, and [...] dysfunction Dyslipidemia Peripheral veno (more content not included)...[facility]02-15-2024 History of Present illness Narrative* Jose Brewer MD - 10/30/2023 3:17 PM ESTAssociated Problem(s): PAD (peripheral artery disease) ([facility]) Symptoms stable and follow up [...] 2:15 PM EST Subjective Patient ID: Carlo Henderson is a 87 y.o. male who presents [...] microalbuminuria, without long-term current use of insulin ([facility]) - Primary Reports BS elevated and follow up with endocrinology. Stick to ADA diet and limit carbs. Gastroesophageal reflux disease without esophagitis Symptoms controlled with protonix and continue. Skin candidiasis Developed rash and use cream PRN. Relevant Medications clotrimazole (Lotrimin) 1 % cream documented in [facility] encounterS[facility] [id number] Evaluation note* Encounter Date Diagnosis Assessment Notes Treatment Notes Treatment Clinical Notes Jul, Benign prostatic hyperplasia with lower urinary tract symptoms (ICD-10 - N40.1) [employer] Other 10-26-2023 Evaluation note* Encounter Date Diagnosis [...] an d reflux uropathy (ICD-10 - N13.8) [employer] Other 06-23-2023 Evaluation note* Encounter Date Diagnosis [...] an d reflux uropathy (ICD-10 - N13.8) [employer] Other 01-11-2023 Evaluation note* Encounter Date Diagnosis [...] IV Iron Sep, Hypomagnesemia (ICD-10 - E83.42) [employer] Other 07-19-2022 Evaluation note* Encounter Date Diagnosis [...] will schedule II more doses of Injectafer [employer] Other 05-10-2022 Evaluation note* Encounter Date Diagnosis [...] daily January, Iron deficiency (ICD-10 - E61.1) [employer] Other 05-02-2022 Evaluation note* Encounter Date Diagnosis Assessment Notes Treatment Notes Treatment Clinical Notes January, Stage 3b chronic kidney disease (CKD) (ICD-10 - N18.32) January, Localized edema (ICD-10 - R60.0) January, Primary hypertension (ICD-10 - I10) [employer] Other Evaluation noteNo InformationNortSelect [facility]ty [facility] [employer] Other Evaluation noteNo assessment information available [facility] Work Phone: Evaluation note* Diagnosis Type 2 diabetes mellitus with microalbuminuria, without long-term current use of insulin ([facility])- Primary Chronic heart failure with preserved ejection fraction (HFpEF) ([facility]) Benign essential hypertension (CMS/HCC) Essential hypertension, benign Primary osteoarthritis of shoulders, bilateral Gastroesophageal reflux disease without esophagitis Esophageal reflux Skin candidiasis Candidiasis of skin and nails PAD (peripheral artery disease) (CMS/HCC) Unspecified peripheral vascular disease documented in this encounter [facility] HealthcareEvaluation note* Diagnosis Onset Date Resolution Status Anemia acute Benign prostatic hyperplasia with lower urinary tract symptoms acute Diabetic nephropathy acute Fluid overload acute Hyperparathyroidism acute Hyperuricemia acute Hypocalcemia acute Hypomagnesemia acute Primary hypertension acute Stage 3b chronic kidney disease (CKD) acute Status post carotid surgery noneactive [facility] Work Phone: Evaluation note* Author Andry Morales [facility] Authored June 17, 2024 11 :16am [...] of liver diseases. Will check MELD labs [facility] Work Phone: Evaluation note* Diagnosis Type 2 diabetes mellitus with microalbuminuria, without long-term current use of insulin (CMS/HCC)- Primary Chronic heart failure with preserved ejection fraction (HFpEF) ([facility]/HCC) Benign essential hypertension ([facility]/HCC) Essential hypertension, benign Primary osteoarthritis of shoulders, bilateral Gastroesophageal reflux disease without esophagitis Esophageal reflux Skin candidiasis Candidiasis of skin and nails PAD (peripheral artery disease) (CMS/HCC) Unspecified peripheral vascular disease Gastroenteritis- Primary Other and unspecified noninfectious gastroenteritis and colitis Other cirrhosis of liver ([facility]/HCC) Type 2 diabetes mellitus with microalbuminuria, [...] insulin (CMS/HCC)- Primary documented in this encounter [facility] HealthcareEvaluation note* Diagnosis Type 2 diabetes mellitus [...] 3b (HCC) (CMS/HCC) documented in this encounter [facility] HealthcareEvaluation note* Diagnosis Type 2 diabetes [...] (CMS/HCC) Chronic kidney disease, stage 3b (HCC) ([facility]/HCC) Left ear impacted cerumen Impacted cerumen documented in this encounter [facility] HealthcareEvaluation note* Diagnosis Type 2 diabetes mellitus with microalbuminuria, without long-term current use of insulin ([facility]/HCC)- Primary Chronic heart failure with preserved ejection fraction (HFpEF) ([facility]/HCC) Benign essential hypertension ([facility]/HCC) Essential hypertension, benign Primary osteoarthritis of shoulders, bilateral Gastroesophageal reflux disease without esophagitis Esophageal reflux Skin candidiasis Candidiasis of skin and nails PAD (peripheral artery disease) ([facility]/HCC) Unspecified peripheral vascular disease Gastroenteritis- Primary Other and unspecified noninfectious gastroenteritis and colitis Other cirrhosis of liver ([facility]/HCC) Type 2 diabetes mellitus with microalbuminuria, without long-term current use of insulin ([facility]/HCC)- Primary Benign essential hypertension ([facility]/HCC) Essential hypertension, benign Chronic obstructive pulmonary disease, unspecified COPD type ([facility]/HCC) Chronic heart failure with preserved ejection fraction (HFpEF) ([facility]/HCC) Primary osteoarthritis of shoulders, bilateral Gastroesophageal reflux disease without esophagitis Esophageal reflux Other cirrhosis of liver ([facility]/HCC) Type 2 diabetes mellitus with diabetic chronic kidney disease ([facility]/HCC) Chronic kidney disease, stage 3a (HCC) ([facility]/HCC) Hyperparathyroidism, unspecified ([facility]/HCC) Hyperparathyroidism, unspecified 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- Primary Type 2 diabetes mellitus with diabetic chronic kidney disease (CMS/HCC) Chronic kidney disease, stage 3b (HCC) ([facility]/HCC) Type 2 diabetes mellitus with microalbuminuria, without long-term current use of insulin ([facility]) Type 2 diabetes mellitus with hyperglycemia, without long-term current use of insulin ([facility]) documented in this encounter [facility] HealthcareEvaluation note* Diagnosis Type 2 diabetes mellitus with microalbuminuria, without long-term current use of insulin ([facility]/HCC)- Primary Chronic heart failure with preserved ejection fraction (HFpEF) ([facility]/HCC) Benign essential hypertension ([facility]/HCC) Essential hypertension, benign Primary osteoarthritis of shoulders, bilateral Gastroesophageal reflux disease without esophagitis Esophageal reflux Skin candidiasis Candidiasis of skin and nails PAD (peripheral artery disease) ([facility]/HCC) Unspecified peripheral vascular disease Gastroenteritis- Primary Other and unspecified noninfectious gastroenteritis and colitis Other cirrhosis of liver ([facility]/HCC) Type 2 diabetes mellitus with microalbuminuria, without long-term current use of insulin ([facility]/HCC)- Primary Benign essential hypertension ([facility]/HCC) Essential hypertension, benign Chronic obstructive pulmonary disease, unspecified COPD type ([facility]/HCC) Chronic heart failure with preserved ejection fraction (HFpEF) ([facility]/HCC) Primary osteoarthritis of shoulders, bilateral Gastroesophageal reflux disease without esophagitis Esophageal reflux Other cirrhosis of liver ([facility]/HCC) Type 2 diabetes mellitus with diabetic chronic kidney disease ([facility]/HCC) Chronic kidney disease, stage 3a (HCC) ([facility]/HCC) Hyperparathyroidism, unspecified ([facility]/HCC) Hyperparathyroidism, unspecified 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- Primary Type 2 diabetes mellitus with diabetic chronic kidney disease (CMS/HCC) Chronic kidney disease, stage 3b (HCC) ([facility]/HCC) Type 2 diabetes mellitus with hyperglycemia, without long-term current use of insulin ([facility]/HCC)- Primary Vitamin D deficiency Primary hypertension ([facility]/HCC) Unspecified essential hypertension Hyperlipemia, mixed ([facility]) Mixed hyperlipidemia Encounter for dietary consultation Stage 3b chronic kidney disease (HCC) ([facility]) documented in this encounter [facility] HealthcareEvaluation note* Diagnosis Onset Date Resolution Status Admit Date Anemia acute October 19, 2024 12:36pm Benign prostatic hyperplasia with lower urinary tract symptoms acute Oct ru2024 12:36pm Diabetic nephropathy acute 2024 12:36pm Fluid overload acute October 192024 12:36pm Hyperparathyroidism acute 2024 12:36pm Hyperuricemia acute October 12:36pm Hypocalcemia acute October 12:36pm Hypomagnesemia acute October 192024 12:36pm Primary hypertension acute 2024 12:36pm Stage 3b chronic kidney dise ase (CKD) acute October 19 12:36pm [facility] Work Phone: Evaluation note* Diagnosis Carotid stenosis, asymptomatic, left- Primary Rest pain of both lower extremities due to atherosclerosis ([facility]) [facility] Diagnosis Carotid stenosis, asymptomatic, left- Primary PAD (peripheral artery disease) ([facility])- Primary Unspecified peripheral vascular disease Bilateral carotid bruits Carotid stenosis, asymptomatic, left [facility]* Diagnosis Carotid stenosis, asymptomatic, left- Primary Pre-op testing Unspecified pre-operative examination [facility]* Diagnosis History of CEA (carotid endarterectomy)- Primary Carotid stenosis, right Occlusion and stenosis of carotid artery without mention of cerebral infarction [facility]* Diagnosis Left carotid artery stenosis- Primary Chronic kidney disease, stage 3b ([facility]-HCC) [facility]* Diagnosis Type 2 diabetes mellitus with microalbuminuria, without long-term current use of insulin (CMS/HCC)- Primary Chronic heart failure with preserved ejection fraction (HFpEF) (CMS/HCC) Benign essential hypertension ([facility]/HCC) Essential hypertension, benign Primary osteoarthritis of [...] essential hypertension (CMS/HCC) Essential hypertension, benign Chronic heart failure with preserved ejection fraction (HFpEF) (CMS/HCC) Primary osteoarthritis of shoulders, bilateral Gastroesophageal reflux disease without esophagitis Esophageal reflux Type 2 diabetes mellitus with hyperglycemia, with long-term current use of insulin (CMS/HCC) Other cirrhosis of liver (CMS/HCC) Chronic obstructive pulmonary disease, unspecified COPD type (CMS/HCC) documented in this encounter [facility] HealthcareEvaluation note* Diagnosis Type 2 diabetes mellitus with microalbuminuria, without long-term current use of insulin (CMS/HCC)- Primary Chronic heart failure with preserved ejection fraction (HFpEF) (CMS/HCC) Benign essential hypertension (CMS/HCC) Essential hypertension, benign Primary osteoarthritis of shoulders, bilateral Gastroesophageal reflux disease without esophagitis Esophageal reflux Skin candidiasis Candidiasis of skin and nails PAD (peripheral artery disease) ([facility]/HCC) Unspecified peripheral vascular disease Gastroenteritis- Primary Other and unspecified noninfectious gastroenteritis and colitis Other cirrhosis of liver Type 2 diabetes mellitus with microalbuminuria, without long-term current use of insulin (CMS/HCC)- Primary Benign essential hypertension (CMS/HCC) Essential hypertension, benign Chronic obstructive pulmonary disease, unspecified COPD type (CMS/HCC) Chronic heart failure with preserved ejection fraction (HFpEF) (CMS/HCC) Primary osteoarthritis of shoulders, bilateral Gastroesophageal reflux disease without esophagitis Esophageal reflux Other cirrhosis of liver Type 2 diabetes mellitus with diabetic chronic [...] essential hypertension (CMS/HCC) Essential hypertension, benign Chronic heart failure with preserved ejection fraction (HFpEF) (CMS/HCC) Primary osteoarthritis of shoulders, bilateral Gastroesophageal reflux disease without esophagitis Esophageal reflux Type 2 diabetes mellitus with hyperglycemia, with long-term current use of insulin (CMS/HCC) Other cirrhosis of liver Chronic obstructive pulmonary disease, unspecified COPD type (CMS/HCC) Clostridium difficile colitis- Primary Intestinal infection due to clostridium difficile Type 2 diabetes mellitus with microalbuminuria, without long-term current use of insulin ([facility]/HCC) documented in this encounter [facility] HealthcareEvaluation note* Diagnosis Type 2 diabetes mellitus with microalbuminuria, without long-term current use of insulin ([facility]/HCC)- Primary Chronic heart failure with preserved ejection fraction (HFpEF) (CMS/HCC) Benign essential hypertension ([facility]/HCC) Essential hypertension, benign Primary osteoarthritis of shoulders, bilateral Gastroesophageal reflux disease without esophagitis Esophageal reflux Skin candidiasis Candidiasis of skin and nails PAD (peripheral artery disease) ([facility]/HCC) Unspecified peripheral vascular disease Gastroenteritis- Primary Other and unspecified noninfectious gastroenteritis and colitis Other cirrhosis of liver Type 2 diabetes mellitus with microalbuminuria, without long-term current use of insulin ([facility])- Primary Benign essential hypertension ([facility]) Essential hypertension, benign Chronic obstructive pulmonary disease, unspecified COPD type ([facility]) Chronic heart failure with preserved ejection fraction (HFpEF) ([facility]) Primary osteoarthritis of shoulders, bilateral Gastroesophageal reflux disease without esophagitis Esophageal reflux Other cirrhosis of liver Type 2 diabetes mellitus with diabetic chronic kidney disease ([facility]/HCC) Chronic kidney disease, stage 3a (HCC) ([facility]) Hyperparathyroidism, unspecified ([facility]) Hyperparathyroidism, unspecified 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- Primary Type 2 diabetes mellitus with diabetic chronic kidney disease ([facility]) Chronic kidney disease, stage 3b (HCC) ([facility]) Type 2 diabetes mellitus with microalbuminuria, without long-term current use of insulin ([facility])- Primary Benign essential hypertension ([facility]) Essential hypertension, benign Chronic heart failure with preserved ejection fraction (HFpEF) ([facility]) Primary osteoarthritis of shoulders, bilateral Gastroesophageal reflux disease without esophagitis Esophageal reflux Type 2 diabetes mellitus with hyperglycemia, with long-term current use of insulin ([facility]) Other cirrhosis of liver Chronic obstructive pulmonary disease, unspecified COPD type ([facility]) Clostridium difficile colitis- Primary Intestinal infection due to clostridium difficile Type 2 diabetes mellitus with microalbuminuria, without long-term current use of insulin ([facility]) Type 2 diabetes mellitus with hyperglycemia, without long-term current use of insulin ([facility])- Primary Vitamin D deficiency Primary hypertension ([facility]) Unspecified essential hypertension Hyperlipemia, mixed ([facility]) Mixed hyperlipidemia Encounter for dietary consultation Stage 3b chronic kidney disease (HCC) ([facility]) Type 2 diabetes mellitus with hyperglycemia, with long-term current use of insulin ([facility]) documented in this encounter [facility] HealthcareEvaluation note* Diagnosis Type 2 diabetes mellitus with microalbuminuria, without long-term current use of insulin ([facility])- Primary Chronic heart failure with preserved ejection fraction (HFpEF) ([facility]) Benign essential hypertension Essential hypertension, benign Primary osteoarthritis of shoulders, bilateral Gastroesophageal reflux disease without esophagitis Esophageal reflux Skin candidiasis Candidiasis of skin and nails PAD (peripheral artery disease) Unspecified peripheral vascular disease Gastroenteritis- Primary Other and unspecified noninfectious gastroenteritis and colitis Other cirrhosis of liver (HCC) Type 2 diabetes mellitus with microalbuminuria, without long-term current use of insulin (HCC)- Primary Benign essential hypertension Essential hypertension, benign Chronic obstructive pulmonary disease, unspecified COPD type (HCC) Chronic heart failure with preserved ejection fraction (HFpEF) (HCC) Primary osteoarthritis of shoulders, bilateral Gastroesophageal reflux disease without esophagitis Esophageal reflux Other cirrhosis of liver (HCC) Type 2 diabetes mellitus with diabetic chronic kidney disease (HCC) Chronic kidney disease, stage 3a (CMS-HCC) Hyperparathyroidism, unspecified (HCC) Hyperparathyroidism, unspecified 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- Primary Type 2 diabetes mellitus with diabetic chronic kidney disease (HCC) Chronic kidney disease, stage 3b (CMS-HCC) Type 2 diabetes mellitus with microalbuminuria, without long-term current use of insulin (HCC)- Primary Benign essential hypertension Essential hypertension, benign Chronic heart failure with preserved ejection fraction (HFpEF) (HCC) Primary osteoarthritis of shoulders, bilateral Gastroesophageal reflux disease without esophagitis Esophageal reflux Type 2 diabetes mellitus with hyperglycemia, with long-term current use of insulin (HCC) Other cirrhosis of liver (HCC) Chronic obstructive pulmonary disease, unspecified COPD type (HCC) Clostridium difficile colitis- Primary Intestinal infection due to clostridium difficile Type 2 diabetes mellitus with microalbuminuria, without long-term current use of insulin (HCC) Type 2 diabetes mellitus with microalbuminuria, without long-term current use of insulin (HCC)- Primary Benign essential hypertension Essential hypertension, benign Chronic heart failure with preserved ejection fraction (HFpEF) (HCC) Chronic obstructive pulmonary disease, unspecified COPD type (HCC) Gastroesophageal reflux disease without esophagitis Esophageal reflux Primary osteoarthritis involving multiple joints documented in this encounter [facility] [...] C ATHETERIZATION 01/18/2019 Hospitalization History SEE ABOVE [employer] Other History general Narrative - Reported* Type [...] CATARACT REMOVED 02/2023 Hospitalization History SEE ABOVE [employer] Other InstructionsNot on filedocumented in this encounter [facility] Summary Purpose Family History No Family History Records Found Relationship Condition Age at Onset Recorded Date/T kiki brother Unknown Diabetes mellitus Unknown father Unknown mother Unknown Advance Directives No Advanced Directives Records Found Advance Directive Response Recorded Date/ Time Advance Directives No April 17 11:18am Advance Directive Response Recorded Date/ Time Advance Directives No April 17 10:18am Date Activated Date Inactivated Comments 05/05/2021 6:35 PM 05/08/2021 6:04 PM Date Activated Date Inactivated Comments 05/05/2021 6:35 PM 05/08/2021 6:04 PM Latest Code Status on File Code Status [...] carotid surgery Cirrhosis of liver Chief Complaint Admit Date RENAL 6 MONTH F/U October 19, 2024 1 2:36pm Reason for Visit Admit Date Anemia October 19, 2024 1 2:36pm Benign prostatic hyperplasia with lower urinary tract symptoms October 19, 2024 12:36pm Diabetic nephropathy October 19, 2024 12:36pm Fluid overload October 19, 2024 1 2:36pm Hyperparathyroidism October 19, 2024 1 2:36pm Hyperuricemia October 19, 2024 1 2:36pm Hypocalcemia October 19, 2024 1 2:36pm Hypomagnesemia October 19, 2024 1 2:36pm Primary hypertension October 19, 2024 12:36pm Stage 3b chronic kidney disease (CKD) [facility] 2024 12:36pm Reason for Referral Specialty Diagnoses / Procedures Referred By Contac t Referred To Contact Diagnoses History of CEA (carotid endarterectomy) Carotid stenosis, right Procedures Vas carotid duplex bilateral Brisa Enciso MD [address], [address] [address] Referral ID Status Reason Start Date Expiration Date V isits Requested Visits Authorized [id number] Pending Review 03/11/2024 03/11/2025 1 1 Specialty Diagnoses / Procedures Referred By Contac t Referred To Contact Diagnoses Carotid stenosis, asymptomatic, left Pre-op testing Procedures Echo complete W/O contrast Brisa Enciso MD [address], [address] [address] [id number] [place] [address] Phone: [phone] Referral ID Status Reason Start Date Expiration Date V isits Requested Visits Authorized [id number] Authorized 01/27/2024 01/26/2025 1 1 Specialty Diagnoses / Procedures Referred By Contac t Referred To Contact Diagnoses Rest pain of both lower extremities due to atherosclerosis ([facility]) Procedures Vas art doppler lwr bilat mult lev/PVR Brisa Enciso MD [address], [address] [address] Referral ID Status Reason Start Date Expiration Date V isits Requested Visits Authorized [id number] Pending Review 01/08/2024 01/07/2025 1 1 Additional Source Comments (unrecognized sect ion and content) No Status Records FoundNo Status Records FoundNo Status Records FoundNo Status Records FoundNo Status Records FoundNo Status Records FoundNo Status Records FoundNo Status Records FoundNo Status Records Found INFORMATION SOURCE (unrecogn ized section and content) DATE CREATED AUTHOR [facility] DATE CREATED AUTHOR AUTHOR'S ORGANIZ ATION 09/07/2020 [facility] DATE CREATED AUTHOR AUTHOR'S ORGANIZ ATION 02/21/2023 [facility] DATE CREATED AUTHOR AUTHOR'S ORGANIZ ATION 02/12/2024 [facility] DATE CREATED AUTHOR AUTHOR'S ORGANIZ ATION 03/13/2024 [facility] DATE CREATED AUTHOR AUTHOR'S ORGANIZ ATION 09/08/2024 [facility] DATE CREATED AUTHOR AUTHOR'S ORGANIZ ATION 09/14/2024 [facility] DATE CREATED AUTHOR AUTHOR'S ORGANIZ ATION 05/05/2025 [facility] DATE CREATED AUTHOR AUTHOR'S ORGANIZ ATION 05/22/2025 [facility] REASON FOR VISIT (unrecogniz ed section and content) Reason Comments Follow-up 6m Nausea With dry heaves yest erday, better today, but happening multiple times a month Epistaxis (Nose Bleed) Reason Comments Follow-up Hospital f/u Reason Comments Follow-up 6m Dizziness With nausea Reason Comments Carotid Artery Disease Bilateral Carotid Bruits Reason Comments Leg Pain Reason Comments follow up after cardiac clearance Reason Comments Diabetes Follow-up Reason Onset Date Comments Med Refill 09/13/2024 Reason Comments Cerumen Impaction Specialty Diagnoses / Procedures Referred By Contperlita t Referred To Contact Otolaryngology Diagnoses 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 Procedures [facility] OFFICE/OUTPATIENT NEW HIGH [facility] Jose Brewer MD [address] [place] [address] Phone: tel: fax: Chanelle Benz MD [address] [facility] [address] [place] [address] Phone: tel: fax: Referral ID Status Reason Start Date Expiration Date V isits Requested Visits Authorized [id number] Closed Specialty Services Required 08/20/2024 02/16/2025 1 [...] Status: Active Member Role Status Dates Kaur Huizar MD Primary Care Provide r, Attending Provider Active Start: April 26, 2024 Team Status: Inactive Member Role Status Dates Kaur Huizar MD Primary Care Provide r, Attending Provider Active Start: May 04, 2024 End: May 04, 2024 Team Status: Inactive Member Role Status Dates Kaur Huizar MD Primary Care Provider Active S tart: [...] Status: Active Member Role Status Dates Kaur Huizar MD Primary Care Provider Active Team Status: Inactive Member Role Status Dates Kaur Huizar MD Primary Care Provider, Attending Pro vider Active Staff Therapist Relationship Specialty Start Date End Date Jose Brewer MD [address] [place] [address] PCP - General Family Medicine 10/06/23 Staff Therapist Relationship Specialty Start Date End Date Jose Brewer MD [address] [place] [address] PCP - General Family Medicine 10/06/23 Team Status: Inactive Member Role Status Dates Andry Morales MD Attending Provider Active Start: June 24, 2024 End: June 24, 2024 Jose Brewer MD Primary Care Provider Active S tart: June 24, 2024 End: June 24, 2024 Team Status: Inactive Member Role Status Dates oJse Brewer MD Primary Care Provider Active S tart: July 02, 2024 End: July 02, 2024 Andry Morales MD Attending Provider Active Start: July 02, 2024 End: July 02, 2024 Staff Therapist Relationship Specialty Start Date End Date Jose Brewer MD [address] [place] [address] PCP - General Family Medicine 10/06/23 Staff Therapist Relationship Specialty Start Date End Date Jose Brewer MD [address] [place] [address] PCP - General Family Medicine 10/06/23 Staff Therapist Relationship Specialty Start Date End Date Jose Brewer MD [address] [place] [phone] PCP - General Family Medicine 10/06/23 Staff Therapist Relationship Specialty Start Date End Date Jose Brewer MD [address] [place] [phone] PCP - General Family Medicine 10/06/23 Staff Therapist Relationship Specialty Start Date End Date Jose Brewer MD [address] [place] [phone] PCP - General Family Medicine 10/06/23 Staff Therapist Relationship Specialty Start Date End Date Jose Brewer MD [address] [place] [phone] PCP - General Family Medicine 10/06/23 Staff Therapist Relationship Specialty Start Date End Date Jose Brewer MD [address] [place] [address] PCP - General Family Medicine 10/06/23 Staff Therapist Relationship Specialty Start Date End Date Jose Brewer MD [address] [place] [address] PCP - General Family Medicine 10/06/23 Staff Therapist Relationship Specialty Start Date End Date Jose Brewer MD [address] [place] [address] PCP - General Family Medicine 10/06/23 Team Status: Active Member Role Status Dates Jose Brewer MD Primary Care Provider Active S tart: October 11, 2024 Kaur Huizar MD Attending Provider Active Star t: October 11, 2024 Team Status: Inactive Member Role Status Dates Kaur Huizar MD Attending Provider Active Star t: October 19, 2024 End: October 19, 2024 Jose Brewer MD Primary Care Provider Active S tart: October 19, 2024 End: October 19, 2024 Staff Therapist Relationship Specialty Start Date End Date Jose Brewer MD [address] [place] [address] PCP - General 10/08/17 Staff Therapist Relationship Specialty Start Date End Date Jose Brewer MD [address] [place] [address] PCP - General 10/08/17 Staff Therapist Relationship Specialty Start Date End Date Jose Brewer MD [address] [place] [address] PCP - General 10/08/17 Staff Therapist Relationship Specialty Start Date End Date Jose Brewer MD [address] [place] [address] PCP - General 10/08/17 Staff Therapist Relationship Specialty Start Date End Date Jose Brewer MD [address] [facility] [place] [address] PCP - General 03/09/24 Staff Therapist Relationship Specialty Start Date End Date Jose Brewer MD [address] [place] [address] PCP - General 03/09/24 Staff Therapist Relationship Specialty Start Date End Date Jose Brewer MD [address] [place] [address] PCP - General 10/08/17 Staff Therapist Relationship Specialty Start Date End Date Jose Brewer MD [address] [place] [address] PCP - General 10/08/17 Staff Therapist Relationship Specialty Start Date End Date Jose Brewer MD PCP - General 03/09/24 Staff Therapist Relationship Specialty Start Date End Date Joes Brewer MD [address] [place] [address] PCP - General Family Medicine 10/06/23 Staff Therapist Relationship Specialty Start Date End Date Jose Brewer MD [address] [place] [address] PCP - General Family Medicine 10/06/23 Staff Therapist Relationship Specialty Start Date End Date Jose Brewer MD [address] [place] [address] PCP - General Family Medicine 10/06/23 Staff Therapist Relationship Specialty Start Date End Date Jose Brewer MD [address] [place] [address] [facility] 10/06/23 Staff Therapist Relationship Specialty Start Date End Date Jose Brewer MD [address] [place] [address] [facility] 10/06/23 Staff Therapist Relationship Specialty Start Date End Date Jose Brewer MD [address] [place] [address] [facility] 10/06/23 Goals (unrecognized section and content) Goals [...] BE BASED ON THE PRIMARY CLINICAL RECORDS. [facility] [employer] [facility]. provides no warranty or guarantee of the accuracy or completeness of information in this document.
== END 2025-05-30 12:26 | disposition home or self-care (01) ==
LOC: LAB 12:28
PROVIDERS: PCP Family Medicine; Visit Provider Internal Medicine
DX: E11.65 Type 2 diabetes mellitus with hyperglycemia (principal); E55.9 Vitamin D deficiency, unspecified
CPT/HCPCS: 36415; 80061; 80069; 82043; 82306; 82570

== ENCOUNTER 2025-08-02 11:29 | Outpatient (OUT) | payer MEDICARE, SELFPAY ==
--- OUTSIDE RECORDS SUMMARY | 2025-08-02 11:38 | XMS_ITS | CCD ---
Author Organization [facility] Care Team Providers Care [employer] Name Role Phone SELF, REFERRED Referring Unavailable ELENA BARNETT Admitting Unavailable ELENA BARNETT Attending Unavailable JOSE BREWER Primary Care Unavailable Kaur Huizar Unavailable MD Kaur Huizar Primary Care Provider [phone] MD Kaur Huizar Attending Provider [phone] KAREEN CRABTREE Attending Unavailable KAREEN CRABTREE Admitting Unavailable NADEREWale, DR JOSE Dhaliwal Primary Care Unavailable WEST, DR ALVA Johnston Consulting Unavailable WEST, DR AVLA Johnston Attending Unavailable WEST, DR ALVA Johnston Admitting Unavailable NADERER, DR JOSE Dhaliwal Primary Care Unavailable WEST, DR ALVA Johnston Consulting Unavailable WEST, DR ALVA Johnston Attending Unavailable WEST, DR ALVA Johnston Admitting Unavailable NADERER, DR JOSE Dhaliwal Primary Care Un[facility] DR HOLLIS Swanson Consulting Unavailable WEST, [...] HUIZAR Attending Unavailable KAUR HUIZAR Admitting Unavailable NADEREWale, DR JOSE Dhaliwal Primary Care Unavailable EARL, JERICA Attending Unavailable NADERER, DR JOSE Dhaliwal Primary Care Unavailable EARL, JERICA Admitting Unavailable EARL, JERICA Consulting Unavailable NADERER, DR JOSE Dhaliwal Primary Care Unavailable MISC, DR REYNAGA Consulting Unavailable MISC, DR REYNAGA Attending Unavailable MISC, DOCTOR Admitting Unavailable BAKHOUS, [...] Unavailable ZIEBER, DR HOLLIS Swanson Consulting Unavailable Jose Brewer MD Primary Care Provider JOSE BREWER Referring Unavailable JOSE BREWER Primary Care Unavailable FERNIE, MOHAMED F Admitting Unavailable FERNIE, MOHAMED F Attending Unavailable FERNIE, MOHAMED F Referring Unavailable JOSE BREWER Primary Care Unavailable DANIELLA, JOSE Primary Care Unavailable FERNIE, MOHAMED F Admitting Unavailable FERNIE, MOHAMED F Attending Unavailable JOSE BREWER Primary Care Unavailable MD Jose Brewer Primary Care Provider MD Andry Morales Attending Provider [phone] EL[place]HAWY, EHAB Attending Unavailable [place]HAWY, EHAB Attending Unavailable Jose Brewer Primary Care Unavailable Asaad, Imad Admitting Unavailable Asaad, Imad Attending Unavailable Jose Brewer Primary Care Unavailable Asaad, Imad Admitting Unavailable Asaad, Imad Attending Unavailable Asaad, Imad Admitting Unavailable Asaad, Imad Attending Unavailable Jose Brewer Primary Care Unavailable Jose Brewer MD Primary Care Provider Jose Brewer MD Primary Care Provider Jose Brewer MD Primary Care Provider Jose Brewer MD Primary Care Provider [phone] JOSE BREWER Primary Care Unavailable JAMES ANN Attending Unavailable JOSE BREWER Primary Care Unavailable DOMINIC JAMISON Consulting Unavailable RICCO, JANINAHAMID M Admitting Unavailable JANINA CHACKOHAMID M Attending Unavailable ZARI NEWTON Referring Unavailable JOSE BREWER Primary Care Unavailable Jose Brewer MD Primary Care Provider Akash EATON, Delia Attending Provider [phone] Jose Brewer MD Attending Provider Jose Brewer MD Primary Care Provider AKASH, SANDYMAKelly F Attending Unavailable AKASH, AHMAD F Referring Unavailable JOSE BREWER Attending Unavailable DANIELLA, JOSE Attending Unavailable AKASH, DELIA F Attending Unavailable JOSE BREWER Attending Unavailable AKASH, AHMAD F Attending Unavailable JOSE BREWER Attending Unavailable CHANELLE BENZ Attending Unavailable JOSE BREWER Referring Unavailable ZARI NEWTON Attending Unavailable JOSE BREWER Referring Unavailable JOSE BREWER Primary Care Unavailable ZARI NEWTON Attending Unavailable JOSE BREWER Referring Unavailable JOSE BREWER Primary Care Unavailable Allergies Allergy ClassificationReported Allergen(s)Allergy TypeDate of OnsetReaction(s) Facility (1 source)[facility]st[facility] Other (5 sources)Penicillin; Translations: [penicillin][facility]rug [facility]st[facility] (6 sources)cefdinir; Translations: [CEFDINIR]Drug Lugvaao42-69-0055IbjibgipNqb [facility] Repository (20 sources)cefdinirDrug Rsdkxfw72-88-8122QxrhjnczUJQD Healthcare (20 sources)Penicillins; Translations: [PENICILLINS]Drug Wupvqkutrpv37-85-3888 Diarrhea, Nausea And Vomiting, GI intolerance, UnknownK[facility] Work Phone: (20 sources)ShellfishPropensity to adverse vpqaikrvf52-92-3172CpnaYVDY Healthcare (14 sources)SHELLF[employer] CONTAIN[employer] PRODUCTS; Translations: [SHELLFISH CONTAINING PRODUCTS]Propensity to adverse reactions to food (disorder)35-43-8041Rzjm [facility] Repository (1 source)PenicillinsDrug allergy (disorder)34-68-6964OkfdhipyfSheltering [facility] Repository (11 sources)cefdinirDrug Lkkuuvs90-68-5070NlpdblmaFitQqddni Health System (10 sources)PenicillinsPropensity to adverse reactions to gimj86-28-9630Gtnrjm And VomitingC[facility] (2 sources)PenicillinsPropensity to adverse reactions to ymmv98-90-6539Aynigh And VomitingC[facility] Clinic [facility] (1 source)ShellfishAllergy to numrqgcba48-29-4739VqqgOoiudypfzUniversity [facility]als [facility] Medications Current Medications MedicationDrug Class(es)DatesSig (Normalized)Sig (Original)acetaminophen 500 mg oral tablet (8 sources)Start: 55-36-2218vuyc 1 tablet by mouth every six hours as needed for painacetaminophen (TYLENOL EXTRA STRENGTH) 500 mg tablet Take 1 tablet (500 mg total) by mouth every 6 (six) hours as needed for pain. 05/13/2025 ActiveStart: 50-39-2486ciyp 2 tablets by mouth every six hours as neededacetaminophen (acetaminophen Extra Strength) 500 mg tablet Take 2 tablets (1,000 mg total) by mouthevery 6 (six) hours as needed (pain - pain rated 1-4). 30 tablet 02/12/2024 Sgaaodhde940214 200 actuat albuterol 0.09 mg/actuat metered dose inhaler (20 sources)beta2-Adrenergic AgonistStart: 97-83-5904qpte 1 puff(s) by inhalation four times daily as neededAlbuterol Sulfate (Proair Hfa) 90 mcg/actuation HFA aerosol inhaler Active 2 PUFF INHALATION Four times daily as needed November 18, 2023 1:00am Complies with drug therapyStart: 05-13-2023 albuterol HFA 90 mcg/act inhaler 1 puff 05/13/2023 Active End: 47-85-7149pbzqdwtkt (ProAir RespiClick) 90 mcg/act breath-activated inhaler every 4 (four) hours. 0 10/30/2023 Discontinued (Therapy completed)ascorbic acid 113 mg / copper gluconate 0.4 mg / docosahexaenoic acid 87.5 mg / eicosapentaenoic acid 163 mg / lutein 2.5 mg / tocopherol acetate 100 unt / zeaxanthin 0.5 mg / zinc oxide 17.4 mg oralcapsule (3 sources)Vitamin Ctake 1 capsule by mouth twice dailyPreserVision AREDS 2 - 1 CAPSULE Orally TWICE A DAY Activeaspirin 81 mg delayed release oral tablet (11 sources)Platelet Aggregation Inhibitor, Nonsteroidal Anti-inflammatory Drug Start: 02-13-2024 End: 39-06-4479cbht 1 tablet by mouth in the morningaspirin 81 mg Take 1 tablet (81 mg total) by mouth in the morning for 30 days. 30 tablet 02/13/2024 03/14/2024 Activetake 1 tablet by mouth once dailyAspirin 81 81 MG 1 tablet Orally Once a day Activeatorvastatin 40 mg oral tablet (20 sources)HMG-CoA Reductase InhibitorStart: 46-47-2656yzwp 1 tablet by mouth once dailyAtorvastatin 40 mg tablet Active 1 TAB PO Daily November 18, 2023 1:00am FreeTextSi tablet OrallyOnce a day; Note: Source Status: Taking; Provider: Gaye Dietrich ( ) Complies with drug therapyStart: 11-18-2023 End: 78-58-3000wmgb 1 tablet by mouth once dailyAtorvastatin Active 1 TAB PO Daily November 18, 2023 1:00am FreeTextSi tablet Orally Once a day; Note: Source Status: Taking; Provider: Gaye Dietrich ( )Start: 80-84-7995degv 1 tablet by mouth in the morningatorvastatin (LIPITOR) 40 mg tablet Take 1 tablet (40 mg total) by mouth in the morning. 04/01/2017Active bumetanide 0.5 mg oral tablet (20 sources)Loop DiureticStart: 40-88-1587ivyi 4 tablets by mouth once daily in the morning, then take 4 tablets by mouth once daily in the eveningBumetanide 0.5 mg tablet Active 0 .ROUTE .COMPLEX 720 April 05, 2025 10:02am TAKE 4 TABLETS BY MOUTH EVERY MORNING THEN 4 TABLETS EVERY EVENING Complies with drug therapyStart: 10-19-2024 End: 13-25-7059aajn 1 tablet by mouth twice dailyBumetanide 2 mg tablet Discontinued 2 MG PO Twice daily 180 90 October 19, 2024 2:15pm March 10:04amStart: 03-22-2024 End: 10-31-8959gtzd 4 tablets by mouth once daily in the morning, then take 4 tablets by mouth once daily in the eveningBumetanide 0.5 mg tablet Discontinued 0 .ROUTE .COMPLEX 240 April 22, 2024 2:12pm October 19, 2024 2:17pm TAKE FOUR TABLETS BY MOUTH EVERY MORNING AND TAKE FOUR TABLETS BY MOUTH EVERY EVENING Start: 11-18-2023 End: 51-23-4939cfyi 2 mg by mouth twice dailyBumetanide Discontinued 2 MG PO Twice daily November 18, 2023 1:00am March 22, 2024 5:41pmStart: 10-14-2023 End: 67-53-0120gpxr 1 tablet by mouth twice daily before mealtime, then take 4 tablets by mouth twice dailybumetanide (BUMEX) 0.5 mg tablet Take 1 tablet (0.5 mg total) by mouth 2 (two) times a day before meals. Take 4 pills bid 10/14/2023 ActiveStart: 44-18-1225ukxn 2 tablets by mouth once dailyBumex 0.5 MG 2 tabs Orally Once a day for 90 days Oct, Activetake 1 tablet by mouth once dailybumetanide (Bumex) 0.5 MG tablet Take 0.5 mg by mouth 1 (one) time each day at the same time Activetake 4 tablets by mouth in the morning, then take 4 tablets by mouth once daily in the eveningBumex 0.5 MG 4 tabs in am and 4 tab PM Orally Once a day for 30 days ActiveCalcium Carbonate (20 sources)Start: 75-32-1520Nkjmlcj Carbonate 1250 (500 Ca) MG 2 Orally bid January, ActiveStart: 15-43-4682Vfiiuos Carbonate 1250 (500 Ca) MG 2 Orally bid for 30 day(s) January, Activetake 1 tablet by mouth in the morningcalcium carbonate (Os-Shira) 1250 (500 Ca) MG tablet Take 1 tablet by mouth in the morning and 1 tablet before bedtime. Activetake 1 tablet by mouth in the morningcalcium carbonate (OS-SHIRA) 500 mg elemental (1,250 mg) tablet Take 1 tablet (500 mg total) by mouthin the morning. ActiveCalcium Carbonate 1250 (500 Ca) MG 2 Orally bid Not-TakingCalcium Carbonate 1250 (500 Ca) MG 2 Orally bid Activecarvedilol 6.25 mg oral tablet (20 sources)alpha-Adrenergic Estuardo, beta-Adrenergic BlockerStart: 11-18-2023 End: 15-99-0349fvqx 1 tablet by mouth twice daily at mealtimeCarvedilol 3.125 mg tablet Discontinued 3.125 MG PO Twice daily November 18, 2023 1:00am May 9:22am FreeTextSi tablet with food Orally Twice a day; Note: Source Status: Taking; Provider: Gaye DiertichStart: 83-80-0286cbya 1 tablet by mouth twice daily at mealtimecarvediloL (COREG) 6.25 mg tablet Take 1 tablet (6.25 mg total) by mouth 2 (two) times a day with meals. 60 tablet 05/08/2021 Activetake 1 tablet by mouth every twelve hoursCarvedilol 12.5 MG 1 tablet with food Orally Twice a day Activechlorthalidone 25 mg oral tablet (16 sources)Thiazide-like Diuretictake 1 tablet by mouth once daily chlorthalidone (HYGROTON) 25 mg tablet Take 1 tablet (25 mg total) by mouth daily. Activeclopidogrel 75 mg oral tablet (20 sources)P2Y12 Platelet InhibitorStart: 42-01-1727wbak 1 tablet by mouth once dailyClopidogrel (Plavix) 75 mg tablet Active 1 TAB PO Daily November 18, 2023 1:00am FreeTextSi tablet Orally Once a day; Note: Source Status: Taking; Provider: Gaye Dietrich ( ) Complieswith drug therapyclotrimazole 10 mg/ml topical cream (20 sources)Azole AntifungalStart: 84-45-5533kjzlsoxqecmi (Lotrimin) 1 % cream Indications: Skin candidiasis Apply topically 2 (two) times a day60 g 2 10/30/2023 Activeempagliflozin 25 mg oral tablet (20 sources)Sodium-Glucose Cotransporter 2 InhibitorStart: 11-02-2024 End: 81-77-2813txqr 1 tablet by mouth once dailyempagliflozin (Jardiance) 25 MG Indications: Type 2 diabetes mellitus with hyperglycemia, with long-term current use of insulin (HCC) Take 1 tablet (25 mg) by mouth Daily 90 tablet 1 02/14/2025 ActiveStart: 10-25-2023 End: 44-21-1168chsr 1 tablet by mouth once dailyEmpagliflozin (Jardiance) 10 mg tablet Discontinued 10 MG PO Daily October 19, 2024 1:00am June 07, 2025 9:25am15 ml ferric carboxymaltose 50 mg/ml injection (3 sources)Start: 89-30-8774Wonaummpyp 750 MG/15ML as directed Intravenous every 2 weeks for 14 days January, Activeferrous sulfate 325 mg oral tablet (20 sources)Start: 21-82-6253zybl 1 tablet by mouth once dailyFerrous Sulfate 325 mg (65 mg iron) tablet Active 325 MG PO Daily June 07, 2025 9:26am FreeTextSi tablet Orally twice a day; Note: Source Status: Taking; Provider: Gaye Mcgillies with drug therapyStart: 11-18-2023 End: 00-36-2776fooy 1 tablet by mouth twice dailyFerrous Sulfate 325 mg (65 mg iron) tablet Discontinued 325 MG PO Twice daily November 18, 2023 1:00am June 07, 2025 9:33am FreeTextSi tablet Orally twice a day; Note: Source Status: Taking;Provider: Gaye Dietrichtake 1 tablet by mouth at mealtimeferrous sulfate 325 (65 Fe) MG tablet Take 65 mg by mouth in the morning. Take with meals. Activeferrous sulfate 325 (65 FE) mg EC tablet Take 1 tablet (325 mg total) by mouth in the morning and 1tablet (325 mg total) at noon and 1 tablet (325 mg total) in the evening. Take with meals. Activetake 1 tablet by mouth every twelve hoursFerrous Sulfate 325 (65 Fe) MG 1 tablet Orally twice a day Active take 1 tablet by mouth twice dailyFerrous Sulfate 325 (65 Fe) MG 1 tablet Orally twice a day Activetake 1 tablet by mouth once dailyFerrous Sulfate 325 (65 Fe) MG 1 tablet Orally Once a day Jqqkji71 actuat fluticasone furoate 0.1 mg/actuat / umeclidinium 0.0625 mg/actuat / vilanterol 0.025 mg/actuat dry powder inhaler (5 sources)Anticholinergic, Corticosteroid, beta2-Adrenergic Agonisttake 1 puff(s) by inhalation once dailyTrelegy Ellipta 100-62.5-25 MCG/INH 1 puff Inhalation Once a day Dtjpgb27 actuat fluticasone furoate 0.1 mg/actuat / vilanterol 0.025 mg/actuat dry powder inhaler (12 sources)Corticosteroid, beta2-Adrenergic Agonisttake 1 puff(s) by inhalation in the morningfluticasone furoate-vilanteroL (BREO ELLIPTA) 100-25 mcg/dose blister with device Inhale 1 puff in the morning. Xrzawv825 actuat formoterol fumarate 0.0048 mg/actuat / glycopyrrolate 0.009 mg/actuat metered dose inhaler (20 sources)beta2-Adrenergic AgonistStart: 81-52-8187zpdg 1 puff(s) by inhalation twice dailyGlycopyrrolate-Formoterol 9-4.8 mcg HFA aerosol inhaler Active 2 PUFF INHALATION Twice daily June 07, 2025 12:00am Complies with drug therapyStart: 11-18-2023 End: 94-77-1244Lwrimifrouokfx-Formoterol (Bevespi Aerosphere) 9-4.8 mcg HFA aerosol inhaler Discontinued 2 PUFF INHALATION Twice daily November 18, 2023 1:00am October 19, 2024 2:07pmtake 2 puff(s) by inhalation in the morning Glycopyrrolate-Formoterol 9-4.8 MCG/ACT aerosol Inhale 2 puffs in the morning and 2 puffs before bedtime. Activeglimepiride 2 mg oral tablet (20 sources)SulfonylureaStart: 02-14-2025 End: 65-91-5107zgzz 1 tablet by mouth in the morningglimepiride (Amaryl) 2 MG tablet Indications: Type 2 diabetes mellitus with hyperglycemia, 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) Take 1 tablet (2 mg) by mouth in the morning and 1 tablet (2 mg) before bedtime. 180 tablet 1 02/14/2025 ActiveStart: 05-04-2024 End: 41-08-3536ahbi 1 tablet by mouth twice dailyGlimepiride 4 mg tablet Discontinued 4 MG PO Twice daily May 04, 2024 12:00am October 19, 2024 2:12pmStart: 11-25-2023 End: 91-17-2091mseg 1 tablet by mouth once daily before breakfastglimepiride (AMARYL) 4 mg tablet Take 1 tablet (4 mg total) by mouth every morning before breakfast. 11/25/2023 ActiveStart: 10-01-2022 End: 28-31-8618Ielothgnqif 2 mg tablet Discontinued MG PO November 18, 2023 1:00am May 04, 2024 1:13pm FreeTextSi tablet with breakfast or the first main meal of the day Orally TWICE A DAY; Note: Source Status: Taking; Provider: Gaye Dietrich ( )hydrOXYzine hydrochloride 25 mg oral tablet (20 sources)AntihistamineStart: 60-48-1482qmbu 1 tablet by mouth once daily at bedtimeHydroxyzine Hcl 25 mg tablet Active 25 MG PO Daily at bedtime June 07, 2025 12:00am Complieswith drug therapyStart: 11-18-2023 End: 20-49-7520wjmb 1 tablet by mouth every six hours as neededHydroxyzine Hcl 25 mg tablet Discontinued 25 MG PO Every 6 hours as needed November 18, 2023 1:00am October 19, 2024 2:11pm FreeTextSi tablet as needed Orally every 6 hrs; Note: Source Status: Taking; Provider: Gaye Dietrich ( )take 1 tablet by mouth three times daily as neededhydrOXYzine (ATARAX) 25 mg tablet Take 1 tablet (25 mg total) by mouth 3 (three) times a day as needed for itching. Activeipratropium bromide 0.021 mg/actuat metered dose nasal spray (6 sources)Anticholinergictake 2 spray(s) nasal route in the morningipratropium (ATROVENT) 21 mcg (0.03 %) nasal spray Administer 2 sprays into each nostril in the morning and 2 sprays before bedtime. Activelisinopril 20 mg oral tablet (20 sources)Angiotensin Converting Enzyme InhibitorStart: 69-86-5009rnei 1 tablet by mouth once dailylisinopril 20 MG tablet Indications: Benign essential hypertension Take 1 tablet (20 mg) by mouth Daily 30 tablet 5 02/23/2025 Active Start: 52-32-5479wokb 1 tablet by mouth once dailylisinopril 20 MG tablet Indications: Benign essential hypertension (CMS/HCC) Take 1 tablet (20 mg) by mouth Daily 30 tablet 5 11/02/2024 Activetake 0.5 tablet by mouth in the morning lisinopriL (PRINIVIL,ZESTRIL) 40 mg tablet Take 0.5 tablets (20 mg total) by mouth in the morning. Active End: 25-12-6004sudc 1 tablet by mouth once dailylisinopril 40 MG tablet Take 1 tablet by mouth Daily 11/02/2024 Discontinued (Reorder)take 1 tablet by mouth every twenty-four hoursLisinopril 10 MG 1 tablet Orally Once a day Active Magnesium (4 sources)Magnesium 400 MG as directed Orally twice daily ActiveMagnesium Bisglycinate 100 MG (2 sources)Start: 32-78-0883tllm 2 tablets by mouth once dailyMagnesium Bisglycinate 100 MG 2 tab Orally daily for 30 days Jun, Activemagnesium oxide 420 mg oral tablet (20 sources)Start: 10-19-2024 End: 63-55-0339zscb 1 tablet by mouth twice dailyMagnesium Oxide 400 mg (241.3 mg magnesium) tablet Discontinued 400 MG PO Twice daily October 2:19pm June 07, 2025 9:29amStart: 11-18-2023 End: 60-09-7480waoo 1 tablet by mouth once dailyMagnesium Oxide 400 mg (241.3 mg magnesium) tablet Discontinued 400 MG PO Daily October 19, 2024 2:10pm October 19, 2024 2:19pmStart: 46-89-0794ujik 1 tablet by mouth once daily magnesium oxide 420 MG tablet Take 1 tablet by mouth Daily 10/14/2023 Active End: 62-20-8035hxrq 1 tablet by mouth in the morningmagnesium oxide (Mag-Ox) 400 MG tablet Take 400 mg by mouth in the morning. 0 10/30/2023 Discontinued (Therapy completed)take 1 tablet by mouth every twenty-four hoursMagnesium Oxide 420 MG 1 tablet as needed Orally Once a day Not-Takingmagnesium sulfate 0.0277 meq/ml / potassium sulfate 0.0374 meq/ml / sodium sulfate 0.257 meq/ml oral solution (6 sources)Start: 82-25-3229hlma 177 mL by mouth twice dailySUPREP BOWEL PREP KIT 17.5-3.13-1.6 gram recon soln 177 ml,actual weight, 2 times daily, Oral 177 mL 05/18/2021 Activemeclizine hydrochloride 25 mg oral tablet (20 sources)AntiemeticStart: 16-71-2296ldhu 1 tablet by mouth four times daily as neededMeclizine 25 mg tablet Active 25 MG PO Four times daily as needed November 18, 2023 1:00am FreeTextSi tablet as needed Orally FOUR TIMES A DAY PRN; Note: Source Status: Taking; Provider: Gaye Dietrich ( ) Complies with drug therapytake 1 tablet by mouth every twelve hoursmeclizine (Antivert) 25 MG tablet 25 mg every 12 (twelve) hours. Activemecobalamin (10 sources)Start: 95-67-3909vdgg 1 tablet by mouth once dailyMecobalamin (Vitamin B12) 500 mcg tablet,chewable Active 500 MCG PO Daily October 19, 2024 1:20pmStart: 10-19-2024 End: 86-16-7259Akjxrmizgjt (Vitamin B12) 1,000 mcg tablet,chewable Discontinued 500 MCG PO Daily October 19, 2024 1:58pm October 19, 2024 2:20pmStart: 11-18-2023 End: 57-04-6613qqfj 1 tablet by mouth once dailyMecobalamin (Vitamin B12) 1,000 mcg tablet,chewable Discontinued 1000 MCG PO Daily November 18, 2023 1:00am October 19, 2024 1:93itvetrbeti-lzxy-TZ-calcium &mins (THERAGRAN-M) 9 mg iron- 400 mcg tablet (10 sources)qppuqdwa-xfha-SZ-calcium &mins (THERAGRAN-M) 9 mg iron-400 mcg tablet Take 1 tablet by mouth inthe morning. Activeondansetron 4 mg disintegrating oral tablet (15 sources)Serotonin-3 Receptor AntagonistStart: 10-06-9668xnjy 1 tablet by mouth every eight hours as needed for nausea and diarrhea and diarrhea ondansetron ODT (ZOFRAN ODT) 4 mg disintegrating tablet Indications: Diarrhea, unspecified type Dissolve 1 tablet (4 mg total) on tongue every 8 (eight) hours as needed for nausea for up to 10 doses.10 tablet 01/14/2025 ActiveStart: 87-30-1514flyh 1 tablet by mouth once daily as neededOndansetron 4 mg tablet,disintegrating Active 4 MG PO Daily as needed May 04, 2024 12:00am Complies with drug therapyStart: 93-48-0202kbpdkcewpar ODT (ZOFRAN ODT) 4 mg disintegrating tablet Indications: Gastroenteritis Dissolve 1 tablet (4 mg total) on tongue 3 (three) times a day as needed for nausea for up to 3 doses. 3 tablet 03/09/2024 Activepantoprazole 40 mg delayed release oral tablet (20 sources)Proton Pump InhibitorStart: 05-08-2021 End: 13-92-6839czrn 1 tablet by mouth once daily before breakfastpantoprazole (PROTONIX) 40 mg EC tablet Take 1 tablet (40 mg total) by mouth every morning before breakfast. 30 tablet 05/08/2021 Activepioglitazone 15 mg oral tablet (16 sources)Peroxisome Proliferator Receptor alpha Agonist, Peroxisome Proliferator Receptor gamma Agonist, ThiazolidinedioneStart: 03-06-0058brgt 1 tablet by mouth in the morningpioglitazone (ACTOS) 15 mg tablet Take 1 tablet (15 mg total) by mouth in the morning. 03/27/2021 ActiveProAir RespiClick 90 MCG (9 sources)ProAir RespiClick 90 MCG 2 inhalations every 4 to 6 hours as needed ActiveSITagliptin 50 mg oral tablet (20 sources)Dipeptidyl Peptidase 4 InhibitorStart: 06-17-2024 End: 96-79-5852eqas 1 tablet by mouth once dailySITagliptin (Januvia) 50 MG tablet Indications: Type 2 diabetes mellitus with hyperglycemia, 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) Take 1 tablet (50 mg) by mouth Daily 90 tablet 1 5110/13/2024 ActiveStart: 11-18-2023 End: 56-00-8814uvvm 1 tablet by mouth once dailySitagliptin Phosphate 50 mg tablet Discontinued 50 MG PO Daily November 18, 2023 1:00am May 04, 2024 1:15pm FreeTextSi tablet Orally Once a day; Note: Source Status: Taking; Provider: Gaye Dietrich ( )tamsulosin hydrochloride 0.4 mg oral capsule (20 sources)alpha-Adrenergic BlockerStart: 68-95-1806jtzw 1 capsule by mouth once dailyTamsulosin 0.4 mg capsule Active 0 .ROUTE .COMPLEX 90 March 13, 2025 11:12am TAKE 1 CAPSULE BY MOUTH DAILY Complies with drug therapyStart: 10-31-2023 End: 62-62-9979bbgx 1 capsule by mouth once dailytamsulosin (FLOMAX) 0.4 mg capsule Take 1 capsule (0.4 mg total) by mouth nightly. 10/31/2023 ActiveStart: 43-44-3257mwfh 1 capsule by mouth every twenty-four hoursFlomax 0.4 MG 1 capsule Orally Once a day for 30 days Feb, Activetake 1 capsule by mouth every twenty-four hours in the morningtamsulosin (Flomax) 0.4 MG 24 hr capsule Take 0.4 mg by mouth in the morning. ActiveTrelegy Ellipta 100-62.5-25 MCG/INH (2 sources)take 1 puff(s) by inhalation once dailyTrelegy Ellipta 100-62.5-25 MCG/INH 1 puff Inhalation Once a day Activevancomycin 125 mg oral capsule (12 sources)Glycopeptide AntibacterialStart: 01-14-2025 End: 44-27-9123drehxexvtn (Vancocin) 125 MG capsule Take 125 mg by mouth in the morning and 125 mg at noon and 125mg in the evening and 125 mg before bedtime. 01/14/2025 ActiveVit C,K-Fg-Ipiuq-Lutein-Zeaxan (Preservision Areds-2) 250-90-40-1 mg capsule (7 sources)Start: 51-00-1099Qxv C,Q-Lw-Fyfaf-Lutein-Zeaxan (Preservision Areds- 2) 250-90-40-1 mg capsule Active 1 TAB PO Twice daily November 18, 2023 1:00am Complies with drug therapyStart: 59-68-5595Sms Malki,U-Tf-Zxggb-Lutein-Zeaxan (Preservision Areds-2) 250-90-40-1 mg capsule Active 1 TAB PO Twice daily November 18, 2023 12:00amStart: 65-23-3451Bnk C,P-Jq-Dlftx-Lutein-Zeaxan (Preservision Areds-2) 250-90-40-1 mg capsule Active 1 TAB PO Twice daily November 18, 2023 1:00amvitamin b12 1 mg oral tablet (20 sources)Vitamin Q32Wvaqz: 08-10-2516qkbg 1 tablet by mouth once dailyStart: 13-89-3712tmkf 1 tablet by mouth once dailycyanocobalamin 1000 MCG tablet Take 1 tablet (1,000 mcg total) by mouth daily. 30 tablet 05/09/2021ctiveVitamin B12 1000 MCG (9 sources)take 1 tablet by mouth once dailyVitamin B12 1000 MCG 1 tablet Orally Once a day Active Completed/Discontinued Medications MedicationDrug Class(es)DatesSig (Normalized)Sig (Original)albuterol 0.833 mg/ml / ipratropium bromide 0.167 mg/ml inhalation solution (16 sources)Anticholinergic, beta2-Adrenergic AgonistStart: 11-18-2023 End: 48-74-3782zoix 1 mL by inhalation four times daily as neededIpratropium- Albuterol 0.5 mg-3 mg(2.5 mg base)/3 mL solution for nebulization Discontinued 3 ML INHALATION Four times daily as needed November 18, 2023 1:00am October 19, 2024 2:11pmAlbuterol-Ipratropium ActivemethylPREDNISolone (3 sources)CorticosteroidStart: 05-12-2023 End: 09-70-7127bhzoitULZWSSKkfhbn (Medrol Dospak) 4 MG tablets Indications: Right hip pain Follow schedule on package instructions 1 each 0 05/12/2023 10/30/2023 Discontinued (Other)Start: 01-04-3236znicnmZWITORQftkqb (Medrol Dospak) 4 MG tablets Indications: Right hip pain Follow schedule on package instructions 1 each 0 05/12/2023 Activespironolactone 50 mg oral tablet (20 sources)Aldosterone AntagonistStart: 06-07-2025 End: 78-09-6068lubp 1 tablet by mouth once dailySpironolactone 50 mg tablet Discontinued 50 MG PO Daily June 07, 2025 12:00am June 07, 2025 11:43amtake 1 tablet by mouth every twenty-four hoursSpironolactone 25 MG 1 tablet Orally Once a day Not-Taking Problems Active Problems Problem ClassificationProblemDateDocumented DateEpisodic/ChronicAbdominal pain (5 sources)Right lower quadrant pain; Translations: [Right lower quadrant pain] Onset: 176990-48-7738CanjoxezSyyahhiwupqmir/social admission (7 sources)Dietary counseling and surveillance; Translations: [Patient encounter status]Onset: 954976-21-5997JxypoogiLegwmhxrjhcw and other appendiceal conditions (2 sources)Acute appendicitis; Translations: [Unspecified acute appendicitis] 18-66-6646OjjoxtpsGfenccx kidney disease (20 sources)Chronic renal failure; Translations: [Chronic kidney disease, unspecified]Onset: 663684-41-0550PvdckfwPhotjvw obstructive pulmonary disease and bronchiectasis (20 sources)Chronic obstructive lung disease; Translations: [Chronic obstructive pulmonary disease, unspecified]Onset: 828224-56-7886CsvlflnIcjjyfvxdo heart failure; nonhypertensive (20 sources)Chronic diastolic (congestive) heart failure; Translations: [Chronic heart failure co-occurrent with normal ejection fraction]Onset: 04-08-2022 ChronicCoronary atherosclerosis and other heart disease (20 sources)Coronary arteriosclerosis; Translations: [Atherosclerotic heart disease of [place] coronary artery without angina pectoris]Onset: 10-30-2023 37-10-4713TadjushZnukblaont and other anemia (17 sources)Anemia, unspecified; Translations: [Anemia, unspecified]Onset: 01-22-2022 Resolved: 20-65-2534QplrddpvVcgdqpac mellitus with complications (20 sources)Type 2 diabetes mellitus with other diabetic kidney complication; Translations: [Type 2 diabetes mellitus]Onset: 97-91-8089OdajlocXpywfauom congenital anomalies (1 source)Other congenital malformations of gallbladder; Translations: [Other congenital malformations of gallbladder]Onset: 30-22-6157GzburinKhqxjctdk of lipid metabolism (20 sources)Mixed hyperlipidemia; Translations: [Dyslipidemia]Onset: 12-29-2022 65-61-1299AyyrckxWzxgjgrlpb disorders (20 sources)Gastroesophageal reflux disease without esophagitis; Translations: [Gastro-esophageal reflux disease without esophagitis]Onset: 10-30-2023 22-76-1097RthhofeThfiziijj hypertension (20 sources)Essential hypertension; Translations: [Essential (primary) hypertension]Onset: 04-08-2017 Resolved: 03-00-0927KimsreoGvclr and electrolyte disorders (14 sources)Hypervolemia; Translations: [Fluid overload, unspecified]Onset: 384585-35-3832EvvsljwpJlmpxptzoemfy symptoms and ill-defined conditions (3 sources)Acute retention of urine ; Translations: [Other retention of urine] Onset: 386746-77-5285XxqahojiPmmvf valve disorders (20 sources)Nonrheumatic aortic (valve) stenosis; Translations: [Aortic stenosis, non-rheumatic ]Onset: 03-40-7824NnriuatSrzfswdptes of prostate (19 sources)Lower urinary tract symptoms due to benign prostatic hypertrophy; Translations: [Benign prostatic hyperplasia with lower urinary tract symptoms] ChronicHypertension with complications and secondary hypertension (5 sources)Hypertensive chronic kidney disease with stage 1 through stage 4 chronic kidney disease, or unspecified chronic kidney disease; Translations: [HTN CKD W/STAGE 1-4 CKD/UNS CKD]Onset: 60-57-7642SwzpgqkKrbrkwlpvrv deficiencies (6 sources)Vitamin D deficiency; Translations: [Vitamin D deficiency, unspecified]70-10-9008FogkgqaMcjtzykrj or stenosis of precerebral arteries (20 sources)Occlusion and stenosis of left carotid artery; Translations: [Left carotid artery stenosis]Onset: 621321-57-7822DqtowplYicnaqfitwxwhv (20 sources)Bilateral shoulder osteoarthritis; Translations: [Primary osteoarthritis, right shoulder]Onset: 137340-80-5818XfjsxjyPupyz diseases of kidney and ureters (3 sources)Acquired obstructive defect of renal pelvis; Translations: [Other obstructive and reflux uropathy]EpisodicOther diseases of kidney and ureters (2 sources)Other obstructive and reflux uropathyEpisodicOther ear and sense organ disorders (2 sources)Bilateral hearing xnsw38-05-8392PvolkucOjoug ear and sense organ disorders (12 sources)Chronic eczema of external auditory canal; Translations: [Other otitis externa, bilateral]Onset: 672817-21-9024UjnhyhaCatja ear and sense organ disorders (2 sources)Impacted cerumen in left ear; Translations: [Impacted cerumen, left ear]47-24-1421IrlcgmdzGbygi endocrine disorders (7 sources)Hyperparathyroidism; Translations: [Hyperparathyroidism, unspecified] 02-13-4732XepfdckNbipq endocrine disorders (6 sources)Hyperparathyroidism, unspecified; Translations: [Hyperparathyroidism, unspecified]71-95-3468CjfwgxbOclxc endocrine disorders (1 source)Hypoglycemia, unspecified; Translations: [Hypoglycemia, unspecified] Onset: 35-27-2849LsdssgoMmkkb gastrointestinal disorders (1 source)Diarrhea; Translations: [Diarrhea, unspecified]48-43-3905TufxejdmNmxey gastrointestinal disorders (1 source)Other ascites; Translations: [Other ascites]Onset: 83-39-4571Cevfcomj Other gastrointestinal disorders (2 sources)Diarrhea, unspecified; Translations: [Diarrhea, unspecified]Onset: 64-63-8818IanlyrkiDtiuu liver diseases (20 sources)Cirrhosis of liver; Translations: [Unspecified cirrhosis of liver] Onset: 973062-90-7893AioswffEgcwr liver diseases (6 sources)Unspecified cirrhosis of liver; Translations: [Cirrhosis of liver without mention of alcohol]Onset: 921869-00-0683WujsdwjVqxhm liver diseases (1 source)Fatty (change of) liver, not elsewhere classified; Translations: [Fatty (change of) liver, not elsewhere classified]Onset: 48-58-6541YbzmtagHgtwx nervous system disorders (12 sources)Peripheral nerve disease ; Translations: [Polyneuropathy, unspecified]Onset: 053723-82-0644EwdlsxaXczdg nervous system disorders (1 source)Other acute postprocedural pain; Translations: [Other acute postprocedural pain]Onset: 47-05-3876WanfzoonLingv nutritional; endocrine; and metabolic disorders (14 sources)Hypocalcemia; Translations: [Hypocalcemia]25-18-9367GtksaczNdmya nutritional; endocrine; and metabolic disorders (12 sources)Hypocalcemia; Translations: [Hypocalcemia]Onset: 01-22-2022 Resolved: 86-24-6667VcuoqkjWqpsg nutritional; endocrine; and metabolic disorders (13 sources)Hypomagnesemia; Translations: [Hypomagnesemia]Onset: 05-12-2025 50-42-9410EcozmkyTvxgb nutritional; endocrine; and metabolic disorders (10 sources)Hypomagnesemia; Translations: [Disorders of magnesium metabolism] Onset: 91-02-3618RunfxybImpzp nutritional; endocrine; and metabolic disorders (7 sources)Hyperuricemia; Translations: [Hyperuricemia without signs of inflammatory arthritis and tophaceous disease]33-39-5686CfpjojsyVzrls nutritional; endocrine; and metabolic disorders (6 sources)Hyperuricemia without signs of inflammatory arthritis and tophaceous disease; Translations: [Other abnormal blood chemistry]46-24-3222Eocmvqzu Peripheral and visceral atherosclerosis (20 sources)Peripheral vascular disease; Translations: [Peripheral vascular disease, unspecified]Onset: 570338-07-4928ActicjiKbyfiwgn codes; unclassified (7 sources)Localized edema; Translations: [LOCALIZED EDEMA]Onset: 01-14-2022 Resolved: 46-52-8642FroegnckWugnlhvs codes; unclassified (5 sources)Other specified postprocedural states; Translations: [Other postprocedural status]81-68-4578MmrnffaxQrhqwynl codes; unclassified (3 sources)Acquired absence of other specified parts of digestive tract; Translations: [Other postprocedural status]Onset: 564965-13-1108Pamhqqmz Unclassified (1 source)Carotid stenosis, asymptomatic, left [I65.22]Onset: 01-27-2024 Unclassified (1 source)Low Blood Sugar - SymptomaticOnset: 62-65-7866Scorqmzarzsb (1 source)Low Blood SugarOnset: 24-03-6175Mngfojvfftjl (1 source)POST-OP VISITOnset: 05-31-2025 Past or Other Problems Problem ClassificationProblemDateDocumented DateEpisodic/ChronicCardiac dysrhythmias (4 sources)Palpitations; Translations: [PALPITATIONS]Onset: 80-03-1592Wcubyxka Chronic kidney disease (10 sources)Chronic kidney disease; Translations: [CHRONIC KIDNEY DISEASE STAGE 3B]Onset: 01-14-2022 Resolved: 02-54-5213Aaimllosmz and other anemia (19 sources)Anemia; Translations: [Anemia, unspecified]Onset: 05-05-2021 34-34-2072AsuozxsuFbecxtnrxk and other anemia (12 sources)Iron deficiency anemia; Translations: [Iron deficiency anemia, unspecified]Onset: 435901-88-9712BxsfnpwoHshitvgwozykurum hemorrhage (12 sources)Melena; Translations: [Melena]Onset: 264249-64-7551Bvcsfnqj Intestinal infection (16 sources)Clostridium difficile colitis; Translations: [Enterocolitis due to Clostridium difficile, not specified as recurrent]Onset: 01-19-2025 Resolved: 508553-49-7120VvuwvjcaZfry disorders (6 sources)Mood disordersOnset: 406767-45-1624Wuczbqt (20 sources)Candidiasis of skin; Translations: [Candidiasis of skin and nail] Onset: 10-30-2023 Resolved: 494089-95-8759BlwkyfmfRbyddcwkmzksj gastroenteritis (20 sources)Gastroenteritis; Translations: [Noninfective gastroenteritis and colitis, unspecified]Onset: 03-15-2024 Resolved: 388015-50-1540IlstrbllNzhfbqswfus deficiencies (20 sources)Iron deficiency; Translations: [Cobalamin deficiency]Onset: 05-06-2021 Resolved: 93-97-9819CninkgldAfwrd circulatory disease (13 sources)Carotid bruit; Translations: [Other specified symptoms and signs involving the circulatory and respiratory systems]Onset: EpisodicOther diseases of veins and lymphatics (20 sources)Venous insufficiency of leg; Translations: [Venous insufficiency (chronic) (peripheral)]Onset: 687474-34-9083IbbfuhvmWyplh ear and sense organ disorders (20 sources)Bilateral hearing loss; Translations: [Impacted cerumen, bilateral] Onset: 962805-01-7782SvrgklzhJsgdw ear and sense organ disorders (12 sources)Impacted cerumen of bilateral ears; Translations: [Impacted cerumen, bilateral]Onset: 537654-30-6560HgejwegqKjjgxpmyw; thrombophlebitis and thromboembolism (8 sources)Phlebitis and thrombophlebitis of superficial vessels of left lower extremity; Translations: [Phlebitis and thrombophlebitis of superficial vessels of right lower extremity]Onset: 30-76-0736HkxamxuiSzrfsst (13 sources)Syncope; Translations: [Syncope and collapse]Onset: 05-05-2021 64-33-5661RqjukibrDcepfbio veins of lower extremity (4 sources)Varicose veins of bilateral lower extremities with pain; Translations: [VARICOSE VNS REYNA LOW EXTREMW/PAIN]Onset: 37-34-7177Zueaqhmh Results Test NameValueInterpretationReference RangeFacilityGlucose (Bld) [Mass/Vol]on 12-14-7689Cqqaobk Blood, CMQ224 mg/dLNOUT HealthcareInterpretation and review of laboratory resultsAbnormCommunity Health SystemsHbA1c (Bld) [Mass fraction]on 38-52-9310Aanlbsbgrpbrio and review of laboratory resultsNoBryn Mawr Hospital Laboratory - Hematology and Cell countson 82-22-9150WnI6w (Bld) [Mass fraction] 6.3 %[place] [facility] HealthcareNo Panel Informationon 30-36-7017LPRO HealthcareC DIFFICILE BY PCRon JUR2DogpfgyrAakszlGguveqrtpjx NegativeProFaith Community HospitalComment on above:Result Comment: Assay methodology is nucleic acid amplification by real-time PCR for detection of C. difficile toxin gene sequences performed on [employer] System.Performed By: #### CDFPCR ####[facility] ([facility])[address] [address] VIRTOXIGENIC C DIFFNegativeNormalNegativeProMedica Randolph HospitalComment on above:Performed By: #### CDFPCR ####[facility] ([facility])[address], [place] [address] VIRGI PANEL STOOL PATHOGEN PANELon 76-13-1367DPWJPIBEPOLck detectedNormalNot DetectedProFaith Community HospitalComment on above:Performed By: #### GIP ####[facility] ([facility])[address] [address] VIRAGGREGATIVE E COLINot detectedNormalNot DetectedProFaith Community HospitalComment on above: Performed By: #### GIP ####[facility] ([facility])[address] [address] VIRASTROVIRUSNot detectedNormalNot Detected [facility] Medical CenterComment on above:Performed By: #### GIP ####[facility] ([facility])[address] [address] VIR CAMPYLOBACTERNot detectedNormalNot DetectedProFaith Community HospitalComment on above:Performed By: #### GIP ####[facility] ([facility])[address] [address] VIRCRYPTOSPORIDIUMNot detectedNormalNot DetectedProFaith Community HospitalComment on above:Performed By: #### GIP ####[facility] ([facility])[address] [address] VIRCYCLOSPORANot detectedNormalNot DetectedProFaith Community Hospital Comment on above:Performed By: #### GIP ####[facility] ([facility])[address] [address] VIRE HISTOLYTICANot detectedNormal Not DetectedProParkview Health HospitalComment on above:Performed By: #### GIP ####[facility] ([facility])[address] [address] VIRGIARDIA LAMBLIANot detectedNormalNot DetectedProSt. David'S [facility] on above:Performed By: #### GIP ####[facility] ([facility])[address] [address] VIRNOROVIRUSNot detectedNormalNot DetectedProFaith Community HospitalComment on above:Performed By: #### GIP ####[facility] ([facility])[address] [address] VIRPATHOGENIC E COLINot detectedNormalNot DetectedProFaith Community HospitalComment on above:Performed By: #### GIP ####[facility] ([facility])[address] [address] VIRPLESIOMONASNot detectedNormalNot DetectedProFaith Community HospitalComment on above:Performed By: #### GIP ####[facility] ([facility])[address] [address] VIRROTAVIRUS ANot detectedNormalNot DetectedProFaith Community HospitalComment on above:Performed By: #### GIP ####[facility] ([facility])[address] [address] VIRSALMONELLANot detectedNormalNot DetectedProFaith Community HospitalComment on above:Performed By: #### GIP ####[facility] ([facility])[address] [address] VIRSAPOVIRUSNot detectedNormalNot DetectedProFaith Community HospitalComment on above:Performed By: #### GIP ####[facility] ([facility])[address] [address] VIRSHIGA TOXIN E COLINot detectedNormalNot DetectedProFaith Community HospitalComment on above:Performed By: #### GIP ####[facility] ([facility])[address] [address] VIRSHIGELLA-E COLINot detectedNormalNot DetectedProFaith Community HospitalComment on above:Performed By: #### GIP ####[facility] ([facility])[address] [facility] [address] [address] VIRTOXIGENIC E COLINot detectedNormalNot DetectedProFaith Community HospitalComment on above: Performed By: #### GIP ####[facility] ([facility])[address] [facility] [address] [address] VIRVIBRIONot detectedNormalNot DetectedProFaith Community HospitalComment on above:Performed By: #### GIP ####[facility] ([facility])[address] [facility] [address] [address] VIRVIBRIO CHOLERAENot detectedNormalNot DetectedProFaith Community HospitalComment on above:Performed By: #### GIP ####[facility] ([facility])[address] [facility] [address] [address] AIDA. ENTEROCOLITICANot detectedNormalNot DetectedProFaith Community HospitalComment on above:Performed By: #### GIP ####[facility] ([facility])[address] [facility] [address] [address] VIRGastrointestinal pathogens DNA and RNA panel KRISS+non-probe (Stl)Ordered By: Reguol Lee on 16-06-5195Cfdmnfsyrh DNA KRISS+probe Ql (Unsp spec)Not detectedNot DetectedAultman Orrville HospitalAstrovirus subtypes 1-8 RNA KRISS+non- probe Ql (Stl)Not detectedNot DetectedProHocking Valley Community HospitalC. cayetanensis DNA KRISS+non-probe Ql (Stl)Not detectedNot DetectedProHocking Valley Community HospitalC. coli+jejuni+upsaliensis DNA KRISS+non-probe Ql (Stl)Not detectedNot Detected [facility] HospitalCryptosporidium sp DNA KRISS+non-probe Ql (Stl)Not detected Not DetectedProMarietta Osteopathic Clinic SystemE. coli enteroaggregative Jessica plasmid aggR+aatA genes KRISS+non-probe Ql (Stl)Not detectedNot DetectedProMarietta Osteopathic Clinic SystemE. coli enteropathogenic eae gene KRISS+non-probe Ql (Stl)Not detectedNot DetectedAultman Orrville HospitalE. coli enterotoxigenic ltA+st1a+st1b genes KRISS+non-probe Ql (Stl)Not detectedNot DetectedAultman Orrville HospitalE. coli stx1+stx2 genes KRISS+non-probe Ql (Stl)Not detectedNot DetectedAultman Orrville HospitalE. histolytica DNA KRISS+non-probe Ql (Stl)Not detectedNot DetectedAultman Orrville HospitalG. lamblia DNA KRISS+non-probe Ql (Stl)Not detectedNot Detected [facility] HospitalInterpretation and review of laboratory resultsNormal [facility] HospitalNorovirus genogroup I+II RNA KRISS+non-probe Ql (Stl)Not detectedNot DetectedAultman Orrville HospitalP. shigelloides DNA KRISS+non-probe Ql (Stl)Not detectedNot DetectedAultman Orrville HospitalRotavirus A RNA KRISS+non- probe Ql (Stl)Not detectedNot DetectedNovant Health. enterica+bongori DNA KRISS+non-probe Ql (Stl)Not detectedNot DetectedAultman Orrville Hospital Sapovirus genogroups I+II+IV+V RNA KRISS+non-probe Ql (Stl)Not detectedNot DetectedNovant Healthhigella species+EIEC invasion plasmid antigen H ipaH gene KRISS+non-probe Ql (Stl)Not detectedNot DetectedAultman Orrville Hospital V. cholerae DNA KRISS+non-probe Ql (Stl)Not detectedNot DetectedAultman Orrville HospitalV. cholerae+parahaemolyticus+vulnificus DNA KRISS+non-probe Ql (Stl)Not detectedNot DetectedAultman Orrville HospitalY. enterocolitica DNA KRISS+non-probe Ql (Stl)Not detectedNot DetectedChester [facility] Hospital Cholesterol in LDL Calc [Mass/Vol]Ordered By: Delia Bustos on 05-30-2025 Cholesterol in LDL [Mass/Vol]140.0 mg/dLSheltering Arms HospitalComment on above:<100 mg/dl HHCHEBB870-825 mg/dl NEAR OR ABOVE FVDHNLF636-915 mg/dl BORDERLINE OOIA522-009 mg/dl HIGH>190 mg/dl VERY HIGHCholesterol in VLDL Calc [Mass/Vol]Ordered By: Delia Bustos on 63-22-2148Tuyqkflpree in VLDL [Mass/Vol] 36.0 mg/dLSheltering Arms HospitalGlomerular filtration rate (GFR) estimation in non- AmericanOrdered By: Delia Bustos on 05-30-2025 GFR/1.73 sq M.predicted among non-blacks MDRD (S/P/Bld) [Vol rate/Area]40 mL/min/{1.73_m2}Low>=60 mL/min/1.73m 2FHocking Valley Community Hospital Laboratory - Chemistry and Chemistry - challengeOrdered By: Delia Bustos on 93-68-3605Pbuffag [Mass/Vol]3.0 g/dLLow3.4-5.0[facility] Calcium [Mass/Vol]9.1 mg/dL8.5-10.1FHocking Valley Community HospitalChloride [Moles/Vol]107 mmol/X17-029LulrjhlnkSheltering Arms HospitalCholesterol [Mass/Vol]225 mg/dLHigh<=200S[facility] Arms HospitalCholesterol in HDL [Mass/Vol]49 mg/kY12-50SdppclhsfSheltering Arms HospitalComment on above:> or =60 mg/dl - LOW CARDIOVASCULAR RISK<40 mg/dl - HIGH CARDIOVASCULAR RISKCO2 [Moles/Vol]29.4 mmol/L21.0-32.0S[facility] HospitalCreatinine [Mass/Vol]1.62 mg/dLHigh0.70-1.30S[facility]tering Arms HospitalGFR/1.73 sq M.predicted MDRD (S/P/Bld) [Vol rate/Area]49 mL/min/{1.73_m2}Low>=60 mL/min/1.73m 2FHocking Valley Community HospitalGlucose [Mass/Vol]178 mg/dLHigh 74-106S[facility] HospitalPotassium [Moles/Vol]4.1 mmol/L3.5-5.1 [facility] Hospitalodium [Moles/Vol]144 mmol/Y162-314CjrbcdlpvSheltering Arms HospitalTriglyceride [Mass/Vol]180 mg/dLHigh<=150S[facility] HospitalUrea nitrogen [Mass/Vol]35.0 mg/dLHigh7.0-18.0S[facility] HospitalUrea nitrogen/Creatinine [Mass ratio]21.6 mg/mgSheltering Arms HospitalMicroalbumin [Mass/volume] in UrineOrdered By: Delia Bustos on 31-86-2586Bxvipyi DL <= 20 mg/L (U) [Mass/Vol]3.0 mg/dL<=30.0 [facility] HospitalNo Panel InformationOrdered By: Delia Bustos on 864113-Mgngehk Vitamin D Total38.9 ng/mLSheltering Arms HospitalComment on above:<20 ng/mL Vit D -<30 ng/mL Vit D elmtdvmcywcf45-506 ng/mL Vit D sufficient>100 ng/mL Potential ToxicityPhosphorus Level3.4 mg/dL2.6-4.7FHocking Valley Community HospitalUrine Random Creatinine 23.79 mg/dL20.00-300.00[facility]erm[facility] Hospitalerum or plasma anion gap determinationOrdered By: Delia Bustos on 86-75-8693Ddqcy gap [Moles/Vol] 11.7 mmol/LFRiverside Methodist Hospitalerum or plasma total cholesterol/high density lipoprotein (HDL) cholesterol mass ratOrdered By: Delia Bustos on 57-16-1729Loeubqmqadg.total/Cholesterol in HDL [Mass ratio]4.6 {ratio}[facility] HospitalComment on above:3.3 - 4.4 LOW RISK4.4 - 7.1 AVERAGE RISK7.1 - 11.0 MODERATE RISK>11.0 HIGH RISKUrine microalbumin/creatinine mass ratioOrdered By: Delia Bustos on 05-30-2025 Albumin/Creatinine DL <= 20 mg/L (U) [Mass ratio]126.1 mg/gHigh0.0-29.9S[facility] HospitalComment on above:NO MICROALBUMINURIA 0-29 MG/GCLINICAL MICROALBUMINURIA 30-300 MG/GMACROALBUMINURIA >300 MG/GBEDSIDE GLUCOSEon 99-21-7358Cniqxel [Mass/Vol]176 mg/bQIgma00-26FauIpgrqaMetroHealth Main Campus Medical CenterComment on above:Performed By: #### BEDG ####[facility] ([address] VIRGlucose [Mass/Vol]105 mg/fTNtpc58-64 [facility] Medical CenterComment on above:Performed By: #### BEDG ####[facility] ([address] VIRCBC WITH AUTO DIFFERENTIALon 14-16-7656ACQLZAKHU ABSOLUTE COUNT (10*3/UL) BY AUTOMATED COUNT0.1 10*3/uLNormal0.0-0.2ProMedLos Angeles Community HospitalComment on above: Performed By: #### CBCA #### [address] [address] VIRBASOPHILS RELATIVE PERCENT BY AUTOMATED COUNT1.1 %Normal [facility] Medical CenterComment on above:Performed By: #### CBCA #### [address] [address] VIRCELLAVISION DIFFERENTIAL TYPEAUTOMATED DIFFERENTIALNormal [facility] Medical CenterComment on above:Performed By: #### CBCA #### [facility] ([address] [address] VIREosinophils (Bld) [#/Vol]0.4 10*3/uLNormal0.0-0.4[facility] Medical CenterComhavenwyck hospital on above:Performed By: #### CBCA #### [facility] ([address] [address] VIREOSINOPHILS RELATIVE PERCENT BY AUTOMATED COUNT6.3 %Normal [facility] Medical CenterComment on above:Performed By: #### CBCA #### [address] [address] VIRErythrocyte distribution width (RBC) [Ratio]15.1 %High 11.5-15ProFaith Community HospitalComment on above:Performed By: #### CBCA #### [facility] ([facility]) [address] [place] [address]. [place] [address] VIRHematocrit (Bld) [Volume fraction]33.5 %Ywr88-61AepRiivylMetroHealth Main Campus Medical CenterComment on above:Performed By: #### CBCA #### [facility] ([address] [place] [address] VIRHemoglobin (Bld) [Mass/Vol]11.5 g/kJJss35-25OytParhvyFaith Community HospitalComment on above:Performed By: #### CBCA #### [facility] ([address] [place] [address] VIRLYMPHOCYTES ABSOLUTE COUNT (10*3/UL) BY AUTOMATED COUNT1.0 10*3/uLNormal1.0-3.5PAultman Alliance Community HospitalComment on above:Performed By: #### CBCA #### [facility] ([address] [place] [address] VIRLYMPHOCYTES RELATIVE PERCENT BY AUTOMATED COUNT14.1 %Normal [facility] Medical CenterComhavenwyck hospital on above:Performed By: #### CBCA #### [facility] ([address] [place] [address] VIRMCH (RBC) [Entitic mass]35.2 ppYpcy77-24OraKeprtxMetroHealth Main Campus Medical CenterComment on above:Performed By: #### CBCA #### [facility] ([address] [place] [address] VIRMCHC (RBC) [Mass/Vol]34.2 g/cHHbackb30-89HpuCawoucMetroHealth Main Campus Medical CenterComment on above:Performed By: #### CBCA #### [facility] ([address] [place] [address] VIRMCV (RBC) [Entitic vol]103 ePCufy22-696OaeMfddbhFaith Community HospitalComment on above:Performed By: #### CBCA #### [facility] ([address] [place] [address] VIRMONOCYTES ABSOLUTE COUNT (10*3/UL) BY AUTOMATED COUNT0.6 10*3/uLNormal0.0-0.9[facility] Medical CenterComment on above:Performed By: #### CBCA #### [facility] ([facility]) [address] [place] [address] [place] [address] VIRMONOCYTES RELATIVE PERCENT BY AUTOMATED COUNT8.5 %Normal [facility] Medical CenterComment on above:Performed By: #### CBCA #### [facility] ([address] [place] [address] VIRNEUTROPHILS ABSOLUTE COUNT BY AUTOMATED COUNT4.9 10*3/uL Normal1.5-6.6[facility] Medical CenterComment on above:Performed By: #### CBCA #### [facility] ([address] [place] [address] VIRNEUTROPHILS RELATIVE PERCENT BY AUTOMATED COUNT70.0 %Normal [facility] Medical CenterComment on above:Performed By: #### CBCA #### [facility] ([address] [place] [address] VIRPlatelet mean volume (Bld) [Entitic vol]8.9 fLNormal7-12 [facility] Medical CenterComment on above:Performed By: #### CBCA #### [facility] ([address] [place] [address] VIRPlatelets (Bld) [#/Vol]138 10*3/sZRjb940-057SotMqutviFaith Community HospitalComment on above:Performed By: #### CBCA #### [facility] ([address] [place] [address] VIRRBC COUNT3.26 X10E12/LLow4.1-5.7[facility] Comment on above:Performed By: #### CBCA #### [facility] ([facility]) [facility] [place] [address] VIRWBC (Bld) [#/Vol]7.0 10*3/uLNormal4-11ProFaith Community HospitalComment on above:Performed By: #### CBCA #### [facility] ([facility]) [facility] [place] [address] VIRCOMPREHENSIVE METABOLIC PANELon 42-58-6063Mfjxvpq [Mass/Vol]2.8 g/dLLow3.2-5.3PAultman Alliance Community HospitalComment on above:Performed By: #### CMP ####[facility] ([place] [address] [place] [address] VIRALP [Catalytic activity/Vol]171 U/WHrgl84-827RciKofzzyFaith Community HospitalComment on above:Performed By: #### CMP ####[facility] ([place] [address] [place] [address] VIRALT [Catalytic activity/Vol]24 U/LNormal<=40ProFaith Community HospitalComment on above: Performed By: #### CMP ####[facility] ([place] [address] [place] [address] VIRAnion gap [Moles/Vol]8 mmol/LNormal5-15ProFaith Community HospitalComment on above:Performed By: #### CMP ####[facility] ([place] [address] [place] [address] VIRAST [Catalytic activity/Vol]35 U/LNormal<=41ProFaith Community HospitalComment on above: Performed By: #### CMP ####[facility] ([place] [address] [place] [address] VIRBilirubin [Mass/Vol]1.2 mg/dLNormal0.3-1.2 [facility] Medical CenterComment on above:Performed By: #### CMP ####[facility] ([address] [address] VIRCalcium [Mass/Vol]8.3 mg/dLLow8.5-10.5PAultman Alliance Community HospitalComment on above: Performed By: #### CMP ####[address] [address] VIRChloride [Moles/Vol]103 mmol/HNisizv60-069 [facility] Medical CenterComment on above:Performed By: #### CMP ####[address] [address] VIRCO2 [Moles/Vol]26 mmol/HVrkwvm58-32JqvZlxenqAultman Alliance Community HospitalComment on above: Performed By: #### CMP ####[address] [address] VIRCreatinine [Mass/Vol]1.24 mg/dLHigh0.70-1.20 [facility] Medical CenterComment on above:Result Comment: METHOD TRACEABLE TO IDMS STANDARDPerformed By: #### CMP ####[address] [address] VIRGFR/1.73 sq M.predicted among non- blacks MDRD (S/P/Bld) [Vol rate/Area]56 mL/min/{1.73_m2}Low>=60Met[facility] Campus Medical CenterComment on above:Result Comment: eGFR not reported due to non-numeric value for Creatinine. Reported eGFR is based on the CKD-EPI 202 equation that does not use a race coefficient.Performed By: #### CMP ####[facility] ([address] [address] VIRGlucose [Mass/Vol]95 mg/dL Dmynqd44-53AbwLflypjMetroHealth Main Campus Medical CenterComment on above:Performed By: #### CMP ####[facility] ([facility])[address] [place] [address].[place], [place] [address] VIRPotassium [Moles/Vol]4.3 mmol/LNormal3.5-5.0[facility] Comment on above:Performed By: #### CMP ####[facility] ([facility])[address] [place] [address].[place] [address] VIRProtein [Mass/Vol]6.5 g/dLNormal 6.0-8.0[facility] Medical CenterComment on above:Performed By: #### CMP ####[facility] ([address] [address] VIRSodium [Moles/Vol]137 mmol/CAlbgrh439-538PikTjzycc [facility] Comment on above:Performed By: #### CMP ####[facility] ([address] [place] [address] VIRUrea nitrogen [Mass/Vol]24 mg/dL Normal5-27ProFaith Community HospitalComment on above:Performed By: #### CMP ####[facility] ([address] [address] VIRMAGNESIUMon 36-21-3522Zqapyxilz [Mass/Vol]2.5 mg/dLNormal1.8-2.6 [facility] CenterComment on above:Performed By: #### CBCA #### [facility] ([address] [place] [address] VIRBEDSIDE GLUCOSEon 48-83-6323Eyibqmy [Mass/Vol]84 mg/dL Coyydo92-91FbfYvzbweFaith Community HospitalComment on above:Performed By: #### CBCA #### [facility] ([address] [place] [address] VIRGlucose [Mass/Vol]93 mg/rISiswix69-21YwtPedlrhFaith Community HospitalComment on above:Performed By: #### CBCA #### [facility] ([address] [place] [address] VIRGlucose [Mass/Vol]89 mg/nBMhmrmo66-55DoiNfxmgjFaith Community HospitalComment on above:Performed By: #### CBCA #### [facility] ([address] [place] [address] VIRGlucose [Mass/Vol]94 mg/aYCnkjyb97-42RtlUzuybwFaith Community HospitalComment on above:Performed By: #### CMP #### [facility] ([address] [place] [address] VIRCBC WITH AUTO DIFFERENTIALon 82-24-9898FLQRYKYAC ABSOLUTE COUNT (10*3/UL) BY AUTOMATED COUNT0.1 10*3/uLNormal0.0-0.2PAultman Alliance Community HospitalComment on above:Performed By: #### CMP #### [facility] ([address] [address] VIRBASOPHILS RELATIVE PERCENT BY AUTOMATED COUNT1.2 %Normal [facility] CenterComhavenwyck hospital on above:Performed By: #### CMP #### [facility] ([address] [address] VIRCELLAVISION DIFFERENTIAL TYPEAUTOMATED DIFFERENTIALNormal [facility] Medical CenterComment on above:Performed By: #### CMP #### [facility] ([address] [place] [address] VIREosinophils (Bld) [#/Vol]0.5 10*3/uLHigh0.0-0.4[facility] Medical CenterComment on above:Performed By: #### CMP #### [facility] ([address] [place] [address] VIREOSINOPHILS RELATIVE PERCENT BY AUTOMATED COUNT7.2 %Normal [facility] Medical CenterComment on above:Performed By: #### CMP #### [facility] ([address] [address] VIRErythrocyte distribution width (RBC) [Ratio]15.2 %High 11.5-15ProFaith Community HospitalComment on above:Performed By: #### CMP #### [facility] ([address] [address] VIRHematocrit (Bld) [Volume fraction]33.5 %Zcf74-61FvpLfnokmMetroHealth Main Campus Medical CenterComment on above:Performed By: #### CMP #### [facility] ([address] [address] VIRHemoglobin (Bld) [Mass/Vol]11.5 g/nGIgu97-26VwfNayzhaMetroHealth Main Campus Medical CenterComment on above:Performed By: #### CMP #### [facility] ([address] [address] VIRLYMPHOCYTES ABSOLUTE COUNT (10*3/UL) BY AUTOMATED COUNT1.4 10*3/uLNormal1.0-3.5ProMed[facility]heny Eye HospitalComment on above:Performed By: #### CMP #### [facility] ([address] [address] VIRLYMPHOCYTES RELATIVE PERCENT BY AUTOMATED COUNT21.0 %Normal [facility] Medical CenterComment on above:Performed By: #### CMP #### [facility] ([address] [address] VIRMCH (RBC) [Entitic mass]35.1 poZbde89-34KbhVuiotcFaith Community HospitalComment on above:Performed By: #### CMP #### [facility] ([address] [address] VIRMCHC (RBC) [Mass/Vol]34.4 g/aBCkwrgl53-87QscFkfvzbMetroHealth Main Campus Medical CenterComment on above:Performed By: #### CMP #### [facility] ([address] [place] [address] VIRMCV (RBC) [Entitic vol]102 tXVnny88-089YlwDceyurFaith Community HospitalComment on above:Performed By: #### CMP #### [facility] ([address] [place] [address] VIRMONOCYTES ABSOLUTE COUNT (10*3/UL) BY AUTOMATED COUNT0.6 10*3/uLNormal0.0-0.9[facility] CenterComhavenwyck hospital on above:Performed By: #### CMP #### [facility] ([address] [place] [address] VIRMONOCYTES RELATIVE PERCENT BY AUTOMATED COUNT8.9 %Normal [facility] Medical CenterComment on above:Performed By: #### CMP #### [facility] ([address] [place] [address] VIRNEUTROPHILS ABSOLUTE COUNT BY AUTOMATED COUNT4.0 10*3/uL Normal1.5-6.6[facility] Medical CenterComhavenwyck hospital on above:Performed By: #### CMP #### [facility] ([address] [place] [address] VIRNEUTROPHILS RELATIVE PERCENT BY AUTOMATED COUNT61.7 %Normal [facility] Medical CenterComment on above:Performed By: #### CMP #### [facility] ([address] [place] [address] VIRPlatelet mean volume (Bld) [Entitic vol]8.6 fLNormal7-12 [facility] CenterComment on above:Performed By: #### CMP #### [facility] ([address] [place] [address] VIRPlatelets (Bld) [#/Vol]119 10*3/dJWsa706-447VlaQdpdbhFaith Community HospitalComment on above:Performed By: #### CMP #### [facility] ([address] [place] [address] VIRRBC COUNT3.29 X10E12/LLow4.1-5.7ProFa[facility] Community Hospital Comment on above:Performed By: #### CMP #### [facility] ([address] [place] [address] VIRWBC (Bld) [#/Vol]6.4 10*3/uLNormal4-11ProFaith Community HospitalComment on above:Performed By: #### CMP #### [facility] ([address] [place] [address] VIRCOMPREHENSIVE METABOLIC PANELon 27-16-5843Cwezmzm [Mass/Vol]3.1 g/dLLow3.2-5.3PAultman Alliance Community HospitalComment on above:Performed By: #### CBCA #### [facility] ([address] [place] [address] VIRALP [Catalytic activity/Vol]176 U/EDxsu83-089YwsSqqaleFaith Community HospitalComment on above:Performed By: #### CBCA #### [facility] ([address] [place] [address] VIRALT [Catalytic activity/Vol]26 U/LNormal<=40ProFaith Community HospitalComment on above:Performed By: #### CBCA #### [facility] ([address] [address] VIRAnion gap [Moles/Vol]9 mmol/LNormal5-15ProFaith Community HospitalComment on above:Performed By: #### CBCA #### [facility] ([address] [place] [address] VIRAST [Catalytic activity/Vol]39 U/LNormal<=41ProFaith Community HospitalComment on above:Performed By: #### CBCA #### [facility] ([address] [place] [address] VIRBilirubin [Mass/Vol]1.1 mg/dLNormal0.3-1.2PAultman Alliance Community HospitalComment on above:Performed By: #### CBCA #### [facility] ([address] [place] [address] VIRCalcium [Mass/Vol]8.2 mg/dLLow8.5-10.5PAultman Alliance Community HospitalComment on above:Performed By: #### CBCA #### [facility] ([address] [place] [address] VIRChloride [Moles/Vol]108 mmol/MFolfbx51-806WphZcpimoFaith Community HospitalComment on above:Performed By: #### CBCA #### [facility] ([address] [place] [address] VIRCO2 [Moles/Vol]23 mmol/ZQrtsqi87-54IxpVmiecsAultman Alliance Community HospitalComment on above:Performed By: #### CBCA #### [facility] ([address] [place] [address] VIRCreatinine [Mass/Vol]1.18 mg/dLNormal0.70-1.20ProFaith Community HospitalComment on above:Result Comment: METHOD TRACEABLE TO IDUT STANDARDPerformed By: #### CBCA #### [facility] ([address] [place] [address] VIRGFR/1.73 sq M.predicted among non-blacks MDRD (S/P/Bld) [Vol rate/Area]59 mL/min/{1.73_m2}Low>=60ProFaith Community HospitalComment on above:Result Comment: eGFR not reported due to non-numeric value for Creatinine. EGFR not calculated due to patient's gender not being defined. Reported eGFR is based on the CKD-EPI 2020 equation that does not use a race coefficient.Performed By: #### CBCA #### [facility] ([address] [place] [address] VIRGlucose [Mass/Vol]82 mg/xSNlsvkb51-68RjnFvwvojFaith Community HospitalComment on above:Performed By: #### CBCA #### [facility] ([address] [place] [address] VIRPotassium [Moles/Vol]3.8 mmol/LNormal3.5-5.0[facility] Medical CenterComment on above:Performed By: #### CBCA #### [address] [place] [address] VIRProtein [Mass/Vol]6.5 g/dLNormal6.0-8.0ProFaith Community HospitalComment on above:Performed By: #### CBCA #### [facility] ([address] [place] [address] VIRSodium [Moles/Vol]140 mmol/VNtdtfu383-876HirLynvgg Fremont HospitalComment on above:Performed By: #### CBCA #### [address] [place] [address] VIRUrea nitrogen [Mass/Vol]25 mg/dLNormal5-27ProFaith Community HospitalComment on above:Performed By: #### CBCA #### [facility] ([address] [place] [address] VIRLACTATE W/ REFLEXon 88-64-7149ODMVJZT W/REFLEX1.4 mmol/L Normal0.4-2.0ProFaith Community HospitalComment on above:Order Comment: Result did not trigger repeat Lactate,re-order if needed.Performed By: #### CBCA #### [facility] ([facility]) [address] [place] [address] [place] [address] VIRMAGNESIUMon 57-58-6030Zcwzebkey [Mass/Vol]1.5 mg/dLLow 1.8-2.6ProFaith Community HospitalComment on above:Performed By: #### CBCA #### [facility] ([address] [place] [address] VIRNM HEPATOBILIARY SYS IMAGING W PHARMACOLOGIC AGENTon 40-75-5967AM HEPATOBILIARY SYS IMAGING W PHARMACOLOGIC AGENTNM HEPATOBILIARY SYS IMAGING W PHARMACOLOGIC AGENT CLINICAL [...] by Siva Nuno MD on 05/12/2025 8:20 AMNormalProFaith Community HospitalPROTIME AND INRon 44-72-2422FGW3.8Fsgznx4.9-1.2PAultman Alliance Community HospitalComment on above:Performed By: #### CBCA #### [facility] ([facility]) [address] [place] [address]. [place] [address] VIRPT Coag (PPP) [Time]13.0 sNormal9.8-13.2PAultman Alliance Community HospitalComment on above:Performed By: #### CBCA #### [facility] ([facility]) [address] [place] [address]. [place] [address] VIRBEDSIDE GLUCOSEon 80-17-9575Pxrrrxn [Mass/Vol]65 mg/dL Xxauzo44-85QdbVlnrpzFaith Community HospitalComment on above:Performed By: #### CMP #### [facility] ([address] [place] [address] VIRGlucose [Mass/Vol]78 mg/kPBtkpmz17-05NsfXuvwmmMetroHealth Main Campus Medical CenterComment on above:Performed By: #### CMP #### [facility] ([address] [place] [address] VIRGlucose [Mass/Vol]116 mg/sGMehz13-61HgxQhanlqFaith Community HospitalComment on above:Performed By: #### CMP #### [facility] ([address] [place] [address] VIRCBC WITH AUTO DIFFERENTIALon 03-22-0857SHGUDZNNX ABSOLUTE COUNT (10*3/UL) BY AUTOMATED COUNT0.1 10*3/uLNormal0.0-0.2PAultman Alliance Community HospitalComment on above:Performed By: #### CMP #### [facility] ([address] [place] [address] VIRBASOPHILS RELATIVE PERCENT BY AUTOMATED COUNT0.9 %Normal [facility] CenterComhavenwyck hospital on above:Performed By: #### CMP #### [facility] ([address] [place] [address] VIRCELLAVISION DIFFERENTIAL TYPEAUTOMATED DIFFERENTIALNormal [facility] CenterComment on above:Performed By: #### CMP #### [facility] ([address] [place] [address] VIREosinophils (Bld) [#/Vol]0.4 10*3/uLNormal0.0-0.4[facility] Medical CenterComment on above:Performed By: #### CMP #### [facility] ([address] [place] [address] VIREOSINOPHILS RELATIVE PERCENT BY AUTOMATED COUNT6.3 %Normal [facility] Medical CenterComment on above:Performed By: #### CMP #### [facility] ([address] [place] [address] VIRErythrocyte distribution width (RBC) [Ratio]14.8 %Normal 11.5-15[facility] Medical CenterComment on above:Performed By: #### CMP #### [facility] ([address] [place] [address] VIRHematocrit (Bld) [Volume fraction]34.5 %Ysu01-51PqtSwzoypMetroHealth Main Campus Medical CenterComment on above:Performed By: #### CMP #### [facility] ([address] [place] [address] VIRHemoglobin (Bld) [Mass/Vol]11.7 g/yUNwd15-13PvmTjputlMetroHealth Main Campus Medical CenterComment on above:Performed By: #### CMP #### [facility] ([address] [address] VIRLYMPHOCYTES ABSOLUTE COUNT (10*3/UL) BY AUTOMATED COUNT1.0 10*3/uLNormal1.0-3.5PAultman Alliance Community HospitalComment on above:Performed By: #### CMP #### [facility] ([address] [address] VIRLYMPHOCYTES RELATIVE PERCENT BY AUTOMATED COUNT15.7 %Normal [facility] CenterComment on above:Performed By: #### CMP #### [facility] ([address] [address] VIRMCH (RBC) [Entitic mass]34.7 smXugq62-48ZtvDytbkhFaith Community HospitalComment on above:Performed By: #### CMP #### [facility] ([address] [place] [address] VIRMCHC (RBC) [Mass/Vol]33.9 g/oAFsqrbf14-99PlzSdrwadFaith Community HospitalComment on above:Performed By: #### CMP #### [facility] ([address] [place] [address] VIRMCV (RBC) [Entitic vol]102 dTLwys17-554QkkRpyxtmFaith Community HospitalComment on above:Performed By: #### CMP #### [facility] ([address] [place] [address] VIRMONOCYTES ABSOLUTE COUNT (10*3/UL) BY AUTOMATED COUNT0.5 10*3/uLNormal0.0-0.9[facility] CenterComhavenwyck hospital on above:Performed By: #### CMP #### [facility] ([address] [place] [address] VIRMONOCYTES RELATIVE PERCENT BY AUTOMATED COUNT8.1 %Normal [facility] Medical CenterComment on above:Performed By: #### CMP #### [facility] ([address] [place] [address] VIRNEUTROPHILS ABSOLUTE COUNT BY AUTOMATED COUNT4.6 10*3/uL Normal1.5-6.6[facility] Medical CenterComhavenwyck hospital on above:Performed By: #### CMP #### [facility] ([address] [place] [address] VIRNEUTROPHILS RELATIVE PERCENT BY AUTOMATED COUNT69.0 %Normal [facility] Medical CenterComment on above:Performed By: #### CMP #### [facility] ([address] [place] [address] VIRPlatelet mean volume (Bld) [Entitic vol]8.6 fLNormal7-12 [facility] CenterComment on above:Performed By: #### CMP #### [facility] ([address] [place] [address] VIRPlatelets (Bld) [#/Vol]138 10*3/iJTpo694-656BxiKaysngFaith Community HospitalComment on above:Performed By: #### CMP #### [facility] ([facility]) [address] [place], [place] [address] [address] VIRRBC COUNT3.37 X10E12/LLow4.1-5.7Pro[facility] Community Hospital Comment on above:Performed By: #### CMP #### [facility] ([address] [place] [address] VIRWBC (Bld) [#/Vol]6.6 10*3/uLNormal4-11ProFaith Community HospitalComment on above:Performed By: #### CMP #### [facility] ([address] [place] [address] VIRCOMPREHENSIVE METABOLIC PANELon [id number] [Mass/Vol]3.2 g/dLNormal3.2-5.3PAultman Alliance Community HospitalComment on above: Performed By: #### CMP #### [facility] ([address] [place] [address] VIRALP [Catalytic activity/Vol]190 U/YFxza94-109PgjJvebyzFaith Community HospitalComment on above:Performed By: #### CMP #### [facility] ([address] [place] [address] VIRALT [Catalytic activity/Vol]31 U/LNormal<=40ProFaith Community HospitalComment on above:Performed By: #### CMP #### [facility] ([place] [address] [place] [address] VIRAnion gap [Moles/Vol]8 mmol/LNormal5-15ProFaith Community HospitalComment on above:Performed By: #### CMP #### [facility] ([place] [address] [place] [address] VIRAST [Catalytic activity/Vol]45 U/LHigh<=41ProFaith Community HospitalComment on above:Performed By: #### CMP #### [facility] ([address] [place] [address] VIRBilirubin [Mass/Vol]0.9 mg/dLNormal0.3-1.2PAultman Alliance Community HospitalComment on above:Performed By: #### CMP #### [facility] ([address] [address] VIRCalcium [Mass/Vol]8.6 mg/dLNormal8.5-10.5PAultman Alliance Community HospitalComment on above:Performed By: #### CMP #### [facility] ([address] [place] [address] VIRChloride [Moles/Vol]108 mmol/WRgeozg74-374MxkMxpqmzFaith Community HospitalComment on above:Performed By: #### CMP #### [facility] ([address] [address] VIRCO2 [Moles/Vol]26 mmol/SPovmzz41-35ZawAkjrotAultman Alliance Community HospitalComment on above:Performed By: #### CMP #### [facility] ([address] [address] VIRCreatinine [Mass/Vol]1.24 mg/dLHigh0.70-1.20ProFaith Community HospitalComment on above:Result Comment: METHOD TRACEABLE TO IDMS STANDARDPerformed By: #### CMP #### [facility] ([address] [address] VIRGFR/1.73 sq M.predicted among non-blacks MDRD (S/P/Bld) [Vol rate/Area]56 mL/min/{1.73_m2}Low>=60ProFaith Community HospitalComment on above:Result Comment: eGFR not reported due to non-numeric value for Creatinine. EGFR not calculated due to patient's gender not being defined. Reported eGFR is based on the CKD-EPI 2020 equation that does not use a race coefficient.Performed By: #### CMP #### [facility] ([address] [place] [address] VIRGlucose [Mass/Vol]164 mg/xVSpyl51-40TwkMrgxztFaith Community HospitalComment on above:Performed By: #### CMP #### [facility] ([address] [place] [address] VIRPotassium [Moles/Vol]3.4 mmol/LLow3.5-5.0ProFaith Community HospitalComment on above:Performed By: #### CMP #### [address] [place] [address] VIRProtein [Mass/Vol]7.2 g/dLNormal6.0-8.0ProFaith Community HospitalComment on above:Performed By: #### CMP #### [facility] ([address] [place] [address] VIRSodium [Moles/Vol]142 mmol/SYmypos681-575OsrLnvfyn [facility]remont HospitalComment on above:Performed By: #### CMP #### [address] [place] [address] VIRUrea nitrogen [Mass/Vol]32 mg/dLHigh5-27ProFaith Community HospitalComment on above:Performed By: #### CMP #### [address] [place] [address] VIRCT ABDOMEN AND PELVIS W CONTon 29-15-5129OR ABDOMEN AND PELVIS W CONTCT ABDOMEN AND PELVIS W CONT CT ABDOMEN [...] Finalized by Param Boo on 05/11/2025 10:40 AMNormalProFaith Community Hospital LACTATE W/ REFLEXon 52-85-9271EBEJQCD W/REFLEX1.3 mmol/LNormal0.4-2.0ProFaith Community HospitalComment on above:Order Comment: Result did not trigger repeat Lactate, re-order if needed.Performed By: #### LACTS #### [facility] ([facility]) [address] [place] [address] VIRPOCT NURSING URINE MACROSCOPIC UAon 41-89-6160LGFFEINSS JULIAN NegativeNormalNegativeProFaith Community HospitalComment on above:Performed By: #### CMP #### [facility] ([address] [place] [address] VIRBLOOD/HGB NURTraceAbnormalNegativeMetroHealth Main Campus Medical CenterComment on above:Performed By: #### CMP #### [facility] ([address] [place] [address] VIRGLUCOSE DBA437 mg/dLAbnormalNegativeMetroHealth Main Campus Medical CenterComment on above:Performed By: #### CMP #### [facility] ([address] [place] [address] VIRKETONES NURNegativeNormalNegativeMetroHealth Main Campus Medical Center Comment on above:Performed By: #### CMP #### [facility] ([address] [place] [address] VIRLEUKOCYTE ESTERASE NURNegativeNormalNegativeMetroHealth Main Campus Medical CenterComment on above:Performed By: #### CMP #### [facility] ([address] [place] [address] VIRNITRITE NURNegativeNormalNegativeMetroHealth Main Campus Medical Center Comment on above:Performed By: #### CMP #### [facility] ([address] [place] [address] VIRPH NUR7.0Tqhokx3.0, 6.0, 6.5, 7.0, 7.5, 8.0, 8.5, 5.5 [facility] Medical CenterComment on above:Performed By: #### CMP #### [facility] ([address] [place] [address] VIRPROTEIN NURTraceAbchula vistaNegativeMetroHealth Main Campus Medical Center Comment on above:Performed By: #### CMP #### [facility] ([address] [place] [address] VIRSPECIFIC GRAVITY NUR1.143Dpslzo0.010, 1.015, 1.020, 1.025 [facility] Medical CenterComment on above:Performed By: #### CMP #### [facility] ([address] [address] VIRUROBILINOGEN NUR0.2 E.U./dLNormalMetroHealth Main Campus Medical Center Comment on above:Performed By: #### CMP #### [facility] ([address] [address] VIRURINALYSISon 12-90-4226Yukstikiy Ql (U)NegativeNormal NegativeMetroHealth Main Campus Medical CenterComment on above:Performed By: #### CMP #### [facility] ([address] [address] VIRBLOOD/HGBNegativermalNegativeMetroHealth Main Campus Medical Center Comment on above:Performed By: #### CMP #### [facility] ([address] [address] VIRColor (U)YellowNormalYellowMetroHealth Main Campus Medical Center Comment on above:Performed By: #### CMP #### [facility] ([address] [address] VIRGlucose Ql (U)>=1000 mg/dLAbnormalNegative, 250 mg/dL [facility] Medical CenterComment on above:Performed By: #### CMP #### [facility] ([address] [address] VIRKetones Ql (U)NegativeNormalNegativeMetroHealth Main Campus Medical CenterComment on above:Performed By: #### CMP #### [facility] ([address] [address] VIRLeukocyte esterase Test strip Ql (U)NegativeNormalNegative [facility] Medical CenterComment on above:Performed By: #### CMP #### [facility] ([address] [place] [address] VIRNitrite Ql (U)NegativeNormalNegativeProFaith Community HospitalComment on above:Performed By: #### CMP #### [facility] ([address] [place] [address] VIRPH,URINE7.4Gtjplx0.0-8.5ProMedica [facility] Doheny Eye HospitalComment on above:Performed By: #### CMP #### [facility] ([address] [address] VIRProtein Ql (U)NegativeNormalNegativeProFaith Community HospitalComment on above:Performed By: #### CMP #### [facility] ([address] [address] VIRSpecific gravity (U) [Rel density]1.844Gxmasu6.003-1.035 [facility] Medical CenterComment on above:Performed By: #### CMP #### [facility] ([address] [address] VIRTURBIDITYClearNormalClearProFaith Community HospitalComment on above:Performed By: #### CMP #### [facility] ([address] [place] [address] VIRUROBILINOGEN0.2 eu/dLNormal0.2 eu/dL, 1.0 eu/dLProFaith Community HospitalComment on above:Performed By: #### CMP #### [facility] ([address] [place] [address] VIRUS ABDOMEN LMTDon 74-81-7652SN ABDOMEN LMTDUS ABDOMEN LMTD US ABDOMEN LMTD Clinical history:RLQ [...] by Dominic Fraser MD on 05/11/2025 12:53 PMNormalProFaith Community HospitalGlucose (Bld) [Mass/Vol]Ordered By: Shena Butt on 85-19-3205Pnvlfbg Blood, KEZ017 mg/dLKANE COUNTY HUMAN RESOURCE SSD HealthcareLaboratory - Hematology and Cell countson 93-61-7761XwK5i (Bld) [Mass fraction]6.8 %[facility] HealthcareNo Panel Information Ordered By: Shena Butt on 42-65-1595VFQE HealthcareBEDSIDE GLUCOSEon 73-40-2015Dewkbaf [Mass/Vol]80 mg/vQTijvpu08-83YyqZeigtbMetroHealth Main Campus Medical CenterComment on above:Performed By: #### BEDG #### [facility] ([address] [address] VIRGlucose [Mass/Vol]78 mg/kIUecits06-28KjaWbpiicMetroHealth Main Campus Medical CenterComment on above:Performed By: #### BEDG #### [facility] ([address] [address] VIRC DIFFICILE BY PCRon YJC6SmbsnuvjZqtdtp Presumptive NegativeMetroHealth Main Campus Medical CenterComment on above:Result Comment: Assay methodology is nucleic acid amplification by real-time PCR for detection of C. difficile toxin gene sequences performed on [employer] System.Performed By: #### CDFPCR #### [facility] ([facility]) [address] [place] [address] VIRTOXIGENIC C DIFFPositiveAbnormalNegativeMetroHealth Main Campus Medical CenterComment on above:Performed By: #### CDFPCR #### [facility] ([facility]) [address] [place] [address] VIRCBC WITH AUTO DIFFERENTIALon 43-73-8363Pzkz form neutrophils/100 WBC (Bld)3 %NormalMetroHealth Main Campus Medical CenterComhavenwyck hospital on above: Result Comment: This is an appended report. These results have been appended to a previously preliminary verified report.Performed By: #### CBCA #### [facility] ([facility]) [address] [place] [address] VIRCELLAVISION ATYPICAL LYMPHOCYTES RELATIVE PERCENT BY MANUAL COUNT1 %NormalBarberton Citizens Hospital on above:Result Comment: This is an appended report. These results have been appended to a previously prelimi nary verified report.Performed By: #### CBCA #### [facility] ([address] [address] VIRCELLAVISION BASOPHILS ABSOLUTE COUNT (10*3/UL) BY MANUAL COUNT0.1 10*3/uLNormalBarberton Citizens Hospital on above:Result Comment: This is an appended report. These results have been appended to a previously preliminary verified report.Performed By: #### CBCA #### [facility] ([address] [address] VIRCELLAVISION BASOPHILS RELATIVE PERCENT BY MANUAL COUNT1 % NormalBarberton Citizens Hospital on above:Result Comment: This is an appended report. These results have been appended to a previously preliminary verified report.Performed By: #### CBCA #### [facility] ([address] [address] VIRCELLAVISION DIFFERENTIAL TYPECELLAVISION DIFFERENTIALNormal [facility] on above:Result Comment: This is an appended report. These results have been appended to a previously preliminary verified report.Performed By: #### CBCA #### [facility] ([address] [address] VIRCELLAVISION EOSINOPHILS ABSOLUTE COUNT (10*3/UL) BY MANUAL COUNT0.7 10*3/uLNoMercy Health St. Rita's Medical Center on above:Result Comment: This is an appended report. These results have been appended to a previously preliminary verified report.Performed By: #### CBCA #### [facility] ([address] [address] VIRCELLAVISION EOSINOPHILS PERCENT BY MANUAL COUNT7 %Normal [facility] on above:Result Comment: This is an appended report. These results have been appended to a previously preliminary verified report.Performed By: #### CBCA #### [facility] [address] [address] VIRCELLAVISION LYMPHOCYTES ABSOLUTE COUNT (10*3/UL) BY MANUAL COUNT1.0 10*3/uLUniversity Hospitals Conneaut Medical CenterComhavenwyck hospital on above:Result Comment: This is an appended report. These results have been appended to a previously preliminary verified report.Performed By: #### CBCA #### [facility] ([address] [address] VIRCELLAVISION LYMPHOCYTES RELATIVE PERCENT BY MANUAL COUNT10 %NormalBarberton Citizens Hospital on above:Result Comment: This is an appended report. These results have been appended to a previously preliminary verified report.Performed By: #### CBCA #### [facility] ([address] [address] VIRCELLAVISION MONOCYTES ABSOLUTE COUNT (10*3/UL) IN BLOOD BY MANUAL COUNT0.8 10*3/uLPeoples Hospital on above:Result Comment: This is an appended report. These results have been appended to a previously preliminary verified report.Performed By: #### CBCA #### [facility] ([address] [address] VIRCELLAVISION MONOCYTES RELATIVE PERCENT BY MANUAL COUNT8 % NormalBarberton Citizens Hospital on above:Result Comment: This is an appended report. These results have been appended to a previously preliminary verified report.Performed By: #### CBCA #### [facility] ([facility]) [address] [place] [address], [place] [address] VIRCELLAVISION NEUTROPHILS ABSOLUTE COUNT BY MANUAL COUNT6.8 10*3/uLNoMercy Health St. Rita's Medical Center on above:Result Comment: This is an appended report. These results have been appended to a previously preliminary verified report.Performed By: #### CBCA #### [facility] ([address] [place] [address] VIRCELLAVISION NEUTROPHILS RELATIVE PERCENT BY MANUAL COUNT70 %[facility] on above:Result Comment: This is an appended report. These results have been appended to a previously preliminary verified report.Performed By: #### CBCA #### [facility] ([facility]) [address] [place] [address] VIRCELLAVISION NUCLEATED RED BLOOD CELLS IN BLOOD BY LIGHT OYRZYDWVXB2YuueofSlmMhmxfjMercy Health St. Rita's Medical Center on above:Result Comment: This is an appended report. These results have been appended to a previously prelimi nary verified report.Performed By: #### CBCA #### [facility] ([address] [place] [address] VIRCELLAVISION POLYCHROMASIA IN BLOOD BY LIGHT MICROSCOPY1+ [facility] on above:Result Comment: This is an appended report. These results have been appended to a previously preliminary verified report.Performed By: #### CBCA #### [facility] ([facility]) [address] [place] [address], [place] [address] VIRErythrocyte distribution width (RBC) [Ratio]15.2 %High 11.5-15[facility] on above:Performed By: #### CBCA #### [facility] ([address] [place] [address] VIRHematocrit (Bld) [Volume fraction]36.3 %Erx65-39HxmMmoixqMetroHealth Main Campus Medical CenterComment on above:Performed By: #### CBCA #### [facility] ([address] [place] [address] VIRHemoglobin (Bld) [Mass/Vol]12.4 g/yEByt73-96JpfCdudnzFaith Community HospitalComment on above:Performed By: #### CBCA #### [facility] ([address] [place] [address] VIRMCH (RBC) [Entitic mass]35.3 kjUehm21-73EhvBzoynpMetroHealth Main Campus Medical CenterComment on above:Performed By: #### CBCA #### [facility] ([address] [place] [address] VIRMCHC (RBC) [Mass/Vol]34.3 g/iNCrgrcf19-76RfwFzblnoFaith Community HospitalComment on above:Performed By: #### CBCA #### [facility] ([address] [place] [address] VIRMCV (RBC) [Entitic vol]103 sYUzop19-135AyiXcczsfMetroHealth Main Campus Medical CenterComment on above:Performed By: #### CBCA #### [facility] ([address] [place] [address] VIRPlatelet mean volume (Bld) [Entitic vol]8.5 fLNormal7-12 [facility] Medical CenterComment on above:Performed By: #### CBCA #### [facility] ([address] [place] [address] VIRPlatelets (Bld) [#/Vol]190 10*3/rBKpjhgd486-896LwoMimlwz [facility]ont HospitalComment on above:Performed By: #### CBCA #### [facility] ([facility]) [address] [place], [place] [address] [address] VIRRBC COUNT3.53 X10E12/LLow4.1-5.7ProFa[facility] Community Hospital Comment on above:Performed By: #### CBCA #### [facility] ([address] [place] [address] VIRWBC (Bld) [#/Vol]9.3 10*3/uLNormal4-11ProFaith Community HospitalComment on above:Performed By: #### CBCA #### [facility] ([address] [place] [address] VIRCOMPREHENSIVE METABOLIC PANELon 64-23-2038Tlnsfju [Mass/Vol]3.1 g/dLLow3.2-5.3ProMedLos Angeles Community HospitalComment on above:Performed By: #### CMP #### [facility] ([address] [place] [address] VIRALP [Catalytic activity/Vol]162 U/MVllz04-502OotNcelwoFaith Community HospitalComment on above:Performed By: #### CMP #### [facility] ([address] [place] [address] VIRALT [Catalytic activity/Vol]25 U/LNormal<=40ProFaith Community HospitalComment on above:Performed By: #### CMP #### [facility] ([address] [place] [address] VIRAnion gap [Moles/Vol]8 mmol/LNormal5-15ProFaith Community HospitalComment on above:Performed By: #### CMP #### [facility] ([address] [place] [address] VIRAST [Catalytic activity/Vol]42 U/LHigh<=41ProFaith Community HospitalComment on above:Performed By: #### CMP #### [facility] ([address] [place] [address] VIRBilirubin [Mass/Vol]0.7 mg/dLNormal0.3-1.2PAultman Alliance Community HospitalComment on above:Performed By: #### CMP #### [facility] ([address] [place] [address] VIRCalcium [Mass/Vol]8.4 mg/dLLow8.5-10.5PAultman Alliance Community HospitalComment on above:Performed By: #### CMP #### [facility] ([address] [place] [address] VIRChloride [Moles/Vol]112 mmol/RDoby76-248BlhJxjdobFaith Community HospitalComment on above:Performed By: #### CMP #### [facility] ([address] [place] [address] VIRCO2 [Moles/Vol]20 mmol/OKok03-37UqjHbdkfxAultman Alliance Community Hospital Comment on above:Performed By: #### CMP #### [facility] ([address] [place] [address] VIRCreatinine [Mass/Vol]1.34 mg/dLHigh0.70-1.20ProFaith Community HospitalComment on above:Result Comment: METHOD TRACEABLE TO IDMS STANDARDPerformed By: #### CMP #### [facility] ([address] [place] [address] VIRGFR/1.73 sq M.predicted among non-blacks MDRD (S/P/Bld) [Vol rate/Area]51 mL/min/{1.73_m2}Low>=60ProFaith Community HospitalComment on above:Result Comment: eGFR not reported due to non-numeric value for Creatinine. Reported eGFR is based on the CKD-EPI 202 equation that does not use a race coefficient.Performed By: #### CMP #### [facility] ([address] [place] [address] VIRGlucose [Mass/Vol]75 mg/fLCawkzw14-84QfdDrywngFaith Community HospitalComment on above:Performed By: #### CMP #### [facility] ([address] [place] [address] VIRPotassium [Moles/Vol]3.5 mmol/LNormal3.5-5.0ProFaith Community HospitalComment on above:Performed By: #### CMP #### [facility] ([address] [place] [address] VIRProtein [Mass/Vol]7.6 g/dLNormal6.0-8.0ProFaith Community HospitalComment on above:Performed By: #### CMP #### [facility] ([address] [place] [address] VIRSodium [Moles/Vol]140 mmol/QEkfeti364-873KrdGwvxtg [facility] HospitalComment on above:Performed By: #### CMP #### [facility] ([address] [place] [address] VIRUrea nitrogen [Mass/Vol]21 mg/dLNormal5-27ProFaith Community HospitalComment on above:Performed By: #### CMP #### [facility] ([address] [place] [address] VIRCT ABDOMEN AND PELVIS W CONTon 67-49-2968EG ABDOMEN AND PELVIS W CONTCT ABDOMEN AND PELVIS W CONT CLINICAL INFORMATION: [...] Zion Shi DO on 01/14/2025 11:54 AM I, Dominic Fraser MD have personally reviewed the image(s) and agree with and/or edited the report Finalized by Dominic Fraser MD on 01/14/2025 12:02 PMNormalMetroHealth Main Campus Medical CenterGI PANEL STOOL PATHOGEN PANELon 90-38-2790UAUQROXXPTBdy detectedNormal Not DetectedProFaith Community HospitalComment on above:Performed By: #### GIP #### [facility] ([facility]) [address] [place] [address] VIRAGGREGATIVE E COLINot detectedNormalNot DetectedProFaith Community HospitalComment on above:Performed By: #### GIP #### [facility] ([facility]) [address] [place] [address] VIRASTROVIRUSNot detectedNormalNot DetectedProFaith Community HospitalComment on above:Performed By: #### GIP #### [facility] ([facility]) [address] [place] [address] VIRCAMPYLOBACTERNot detectedNormalNot DetectedProFaith Community HospitalComment on above:Performed By: #### GIP #### [facility] ([facility]) [address] [place] [address] VIRCRYPTOSPORIDIUMNot detectedNormalNot DetectedProParkview Health HospitalComment on above:Performed By: #### GIP #### [facility] ([facility]) [address] [place] [address] VIRCYCLOSPORANot detectedNormalNot DetectedProParkview Health HospitalComment on above:Performed By: #### GIP #### [facility] ([facility]) [address] [place] [address] VIRE HISTOLYTICANot detectedNormalNot DetectedProParkview Health HospitalComment on above:Performed By: #### GIP #### [facility] ([facility]) [address] [place] [address] VIRGIARDIA LAMBLIANot detectedNormalNot DetectedProParkview Health HospitalComment on above:Performed By: #### GIP #### [facility] ([facility]) [address] [place] [address] VIRNOROVIRUSNot detectedNormalNot DetectedProParkview Health HospitalComment on above:Performed By: #### GIP #### [facility] ([facility]) [address] [place] [address] VIRPATHOGENIC E COLINot detectedNormalNot DetectedProParkview Health HospitalComment on above:Performed By: #### GIP #### [facility] ([facility]) [address] [place] [address] VIRPLESIOMONASNot detectedNormalNot DetectedProParkview Health HospitalComment on above:Performed By: #### GIP #### [facility] ([facility]) [address] [place] [address] VIRROTAVIRUS ANot detectedNormalNot DetectedProParkview Health HospitalComment on above:Performed By: #### GIP #### [facility] ([facility]) [address] [place] [address] VIRSALMONELLANot detectedNormalNot DetectedProOhiohealth Nelsonville Health Centerca Randolph HospitalComment on above:Performed By: #### GIP #### [facility] ([facility]) [address] [place] [address] VIRSAPOVIRUSNot detectedNormalNot DetectedProParkview Health HospitalComment on above:Performed By: #### GIP #### [facility] ([facility]) [address] [place] [address] VIRSHIGA TOXIN E COLINot detectedNormalNot DetectedProFaith Community HospitalComment on above:Performed By: #### GIP #### [facility] ([facility]) [address] [place] [address] VIRSHIGELLA-E COLINot detectedNormalNot DetectedProFaith Community HospitalComment on above:Performed By: #### GIP #### [facility] ([facility]) [address] [place] [address] VIRTOXIGENIC E COLINot detectedNormalNot DetectedProFaith Community HospitalComment on above:Performed By: #### GIP #### [facility] ([facility]) [address] [place] [address] VIRVIBRIONot detectedNormalNot DetectedProParkview Health HospitalComment on above:Performed By: #### GIP #### [facility] ([facility]) [address] [place] [address] VIRVIBRIO CHOLERAENot detectedNormalNot DetectedProParkview Health HospitalComment on above:Performed By: #### GIP #### [facility] ([facility]) [address] [place] [address] AIDA. ENTEROCOLITICANot detectedNormalNot DetectedProParkview Health HospitalComment on above:Performed By: #### GIP #### [facility] ([facility]) [address] [place] [address] VIRO AND P SCREENon 01-14-2025O AND P SCREENOPS O & P SCREEN CancelledUniversity Hospitals Conneaut Medical CenterComment on above:Order Comment: GIP ORDEREDGlucose (Bld) [Mass/Vol]Ordered By: Shena Butt on 28-72-7920Phetxut Blood, ABL395 mg/dLNOMS HealthcareNOMS OmtkcuwrlnFoK7y (Bld) [Mass fraction]on 69-45-5497IYVC HealthcareLaboratory - Hematology and Cell countson 10-18-2024 HbA1c (Bld) [Mass fraction]9.1 %NOMS HealthcareALL URINALYSISon 10-11-2024 BILIRUBIN URINENegativeNEGATIVENOMS HealthcareBLOOD URINENegativeNEGATIVENOMS HealthcareClarity (U)CLEARCLEARNOMS HealthcareColor (U)LT. YELLOWYELLOWNOMS HealthcareGLUCOSE URINE UA500 mg/dLAbnormalNEGATIVENOMS HealthcareInterpretation and review of laboratory resultsAbnormalNOMS HealthcareKetones Ql (U)Negative NEGATIVE mg/dLNOMS HealthcareLeukocyte esterase Test strip Ql (U)Negative NEGATIVENOMS HealthcareNITRITE URINENegativeNEGATIVENOMS HealthcarepH (U)5.5 [pH]5.0 - 9.0NOMS HealthcarePROTEIN URINENegativeNEG/TRACE mg/dLNOMS Healthcare SPECIFIC GRAVITY URINE1.0151.005 - 1.025NOMS HealthcareUROBILINOGEN URINE0.2 EU/dL0.2 - 1.0 EU/dLNOMS HealthcareCLINISYNCNOMS HealthcareErythrocyte distribution width Auto (RBC) [Ratio]on [id number] distribution width (RBC) [Ratio]Erythrocyte distribution width [Ratio] by Automated count11.0-15.0 [facility] HospitalEstimated glomerular filtration rate (GFR) non- Americanon 07-43-9961EPI/1.73 sq M.predicted among non-blacks MDRD (S/P/Bld) [Vol rate/Area]Estimated glomerular filtration rate (GFR) non- AmericanLow>=60 mL/min/1.73m 2FHocking Valley Community HospitalHematocrit Auto (Bld) [Volume fraction]on 41-18-6978Xrrwgwobkw (Bld) [Volume fraction]Hematocrit [Volume Fraction] of Blood by Automated txtuyLsc97.0-54.0[facility] HospitalHemoglobin [Mass/volume] in Bloodon 39-39-4156Xwmqesgfnz (Bld) [Mass/Vol]Hemoglobin [Mass/volume] in VjhtlChh01.0-18.0[facility] HospitalIron binding capacity [Mass/volume] in Serum or Plasmaon 43-08-9126Flrn binding capacity [Mass/Vol]Iron binding capacity [Mass/volume] in Serum or Ahxhid693.0-450.0[facility] HospitalIron saturation [Mass Fraction] in Serum or Plasmaon 44-29-8931Pkvg saturation [Mass fraction] Iron saturation [Mass Fraction] in Serum or PlasmaSheltering Arms HospitalLaboratory - Chemistry and Chemistry - challengeon 41-67-4659Sllaccv [Mass/Vol]3.2 g/dLLow3.4-5.0[facility] HospitalCalcium [Mass/Vol] 9.4 mg/dL8.5-10.1FHocking Valley Community HospitalChloride [Moles/Vol]101 mmol/L 98-107S[facility] HospitalCO2 [Moles/Vol]28.1 mmol/L21.0-32.0 [facility] HospitalCobalamin (Vitamin B12) [Mass/Vol]1909 pg/mL Sjshopwo018-1491JybnseolaSheltering Arms HospitalComment on above:Performed at: [place] [facility] [address] [id number] Director: Alonzo Haro PhD, Phone: [phone] [Mass/Vol]1.76 mg/dLHigh0.70-1.30 [facility] HospitalFerritin [Mass/Vol]518.0 ng/nTWxyx50.0-388.0 [facility] HospitalGFR/1.73 sq M.predicted MDRD (S/P/Bld) [Vol rate/Area]45 mL/min/{1.73_m2}Low>=60 mL/min/1.73m 2FHocking Valley Community HospitalGlucose [Mass/Vol]159 mg/dTKswn89-477ExbadrsdvSheltering Arms HospitalIron [Mass/Vol]121.0 ug/dL65.0-175.0[facility] HospitalMagnesium [Mass/Vol]2.2 mg/dL1.8-2.4FHocking Valley Community HospitalPotassium [Moles/Vol] 4.0 mmol/L3.5-5.1FRiverside Methodist Hospitalodium [Moles/Vol]138 mmol/L 136-145S[facility] HospitalUrate [Mass/Vol]8.5 mg/dLHigh3.5-7.2 [facility] HospitalUrea nitrogen [Mass/Vol]37.0 mg/dLHigh7.0-18.0 [facility] HospitalUrea nitrogen/Creatinine [Mass ratio]21.0 mg/mg [facility] HospitalBilirubin Ql (U)NegativeNEGSelect Medical OhioHealth Rehabilitation Hospital - DublinGlucose (U) [Mass/Vol]500 mg/dLAbnormalNEGATIVESheltering Arms HospitalKetones Ql (U)NegativeNEGSelect Medical OhioHealth Rehabilitation Hospital - DublinpH (U)5.5 [pH]5.0-9.0[facility]erm[facility] Hospitalpecific gravity (U) [Rel density]1.0151.005-1.025S[facility] HospitalUrobilinogen Qn (U)0.2 {Ric'U}/dL0.2-1.0[facility] HospitalLaboratory - Specimen informationon 13-64-2829Wxefhryecx (U)CLEARCLEARFHocking Valley Community HospitalColor (U)LT. YELLOWYELLOWSheltering Arms Hospital Laboratory - Urinalysison 44-98-2670Vgfqavfng esterase Test strip Ql (U)Negative NEGATIVESheltering Arms HospitalNitrite Ql (U)NegativeNEGATIVESheltering Arms HospitalProtein (U) [Mass/Vol]8.6 mg/dL<=11.9S[facility] HospitalProtein Ql (U)NegativeNEG/TRACESheltering Arms Hospital Leukocytes [#/volume] corrected for nucleated erythrocytes in Blood by Automated counon 75-33-7313AGE corrected for nucl RBC Auto (Bld) [#/Vol]Leukocytes [#/volume] corrected for nucleated erythrocytes in Blood by Automated coun 4.0-11.0[facility] HospitalMCH Auto (RBC) [Entitic mass]on 70-27-6885KSK (RBC) [Entitic mass]MCH [Entitic mass] by Automated count25.9-34.0 [facility] HospitalMCHC Auto (RBC) [Mass/Vol]on 92-49-1908FEWP (RBC) [Mass/Vol]MCHC [Mass/volume] by Automated count29.9-35.2FHocking Valley Community HospitalMCV Auto (RBC) [Entitic vol]on 33-76-2357DUX (RBC) [Entitic vol] MCV [Entitic volume] by Automated gvlzdOrlx63.0-94.0[facility] HospitalNo Panel Informationon 998834-Dgvevgs Vitamin D Total40.1 ng/mL [facility] HospitalComment on above:<20 ng/mL Vit D - <30 ng/mL Vit D etqobgxwjpsm09-877 ng/mL Vit D sufficient>100 ng/mL Potential IcupaatzMsxfqs07.10 ng/mL8.60-58.90S[facility] HospitalParathyroid Hormone (Intact)58 pg/lP09-40FhpkacmpaSheltering Arms HospitalComment on above: Performed at: [employer] [facility] [address] [id number] Director: Alonzo Haro PhD, Phone: [phone] Level4.1 mg/dL 2.6-4.7FHocking Valley Community HospitalUrine Occult BloodNegativeNEGATIVE [facility] HospitalUrine Random Creatinine<13.00 mg/dLLow 20.00-300.00S[facility] HospitalPlatelet mean volume Auto (Bld) [Entitic vol]on 69-86-8222Vwqnrykv mean volume (Bld) [Entitic vol]Platelet mean volume [Entitic volume] in Blood by Automated count9.5-13.5FHocking Valley Community HospitalPlatelets Auto (Bld) [#/Vol]on 26-10-9184Fmgtopcge (Bld) [#/Vol] Platelets [#/volume] in Blood by Automated -059QaejrdeisSheltering Arms HospitalRBC Auto (Bld) [#/Vol]on 15-87-2863SVM (Bld) [#/Vol]Erythrocytes [#/volume] in Blood by Automated countLow4.70-6.10[facility]ermont Hospitalerum or plasma anion gap determinationon 88-89-5117Tpuiu gap [Moles/Vol] Serum or plasma anion gap determinationSheltering Arms HospitalOffice Visiton 85-61-7033Xnyekc-up [id number] Carlo Henderson 1935 M Date Provider Department Center 09/06/2024 [facility]-JESSY [facility] Family History Problem Relation Age of Onset No Known Problems Mother No Known Problems Father Family Status - Relation Status Age at Mother Father Level of Service:27938 MT OFFICE/OUTPATIENT ESTABLISHED LOW MDM 20 [facility] HospitalUS liveron 72-63-0901ZQ [facility] [address] Ultrasound Report Signed Patient: Carlo Henderson MR#: [id number] : 1935 Acct:[id number] Age/Sex: 88 / M ADM Date: 07/02/24 Loc: Room: Type: [facility] Attending Dr: Andry Morales MD Ordering Provider: [...] MASS.. Impression dictated by: Tl Jones Jr., D.OEunice07/02/2024 3:54 PM Dictation Location: [place] [address] Tech: Karen Collier Transcribed By: [facility] 07/02/24 1554 Dictated By: Tl Jones Jr, DO 07/02/24 1553 Signed By: 07/02/24 1554[facility] CenterAFP Tumor Marker, Serumon 55-45-7726ISG Tumor Marker, Serum3.0 ng/mLNormal0.0-6.4The [facility] Physician GroupComment on above:Result Comment: [employer] Electrochemiluminescence Immunoassay (ECLIA) Values obtained with different assay methods or kits cannot be used interchangeably. Results cannot be interpreted as absolute evidence of the presence or absence of malignant disease. This test is not interpretable in females. Performed at: [address] [id number] Cigarette Making Examiner: Alonzo Haro PhD, Phone: [phone] By: #### HAABT, MITOM2, HCV RX PCR, HBSAB, CERULOP, IGG, L-K MICRO, HEMOCHROM, HBCAB, ALPHA PHEN, HCBIGM, POLO, SMAB, HBSAG, HAAB, AFPTM #### [facility] , #### JAS, PT, CMP #### [place] [address] USAANA Antinuclear Antibodieson 80-34-0182Kxxrsxmoqui Abs, IFANegativeNormal.The [facility] Physician GroupComment on above:Result Comment: Negative <1:80 Borderline 1:80 Positive >1:80 ICAP nomenclature: AC-0 For more information about Hep-2 cell patterns use ANApatterns.org, the official website for the International Consensus on Antinuclear Antibody (POLO) Patterns (ICAP). Performed at: [address] [id number] Cigarette Making Examiner: Alonzo Haro PhD, Phone: [phone] By: #### HAABT, MITOM2, HCV RX PCR, HBSAB, CERULOP, IGG, L-K MICRO, HEMOCHROM, HBCAB, ALPHA PHEN, HCBIGM, POLO, SMAB, HBSAG, HAAB, AFPTM #### [facility] , #### JAS, PT, CMP #### [facility] [address] [place] [address] USAActin smooth muscle IgG Ab [Units/volume] in SerumOrdered By: Imad Asaad on 71-09-7195Ufcjk smooth muscle IgG Qn (S)12 Units0-19S[facility] HospitalComment on above:Negative 0 - 19 Weak positive 20 - 30 Moderate to strong positive >30 Actin Antibodies are foundin 52-85% of patients with autoimmune hepatitis or chronic active hepatitis and in 22% of patients w ith primary biliary cirrhosis.Alanine aminotransferase [Enzymatic activity/volume] in Serum or PlasmaOrdered By: Imad Asaad on 28-90-3058MKY [Catalytic activity/Vol]33 U/LNormal7-52S[facility] HospitalComment on above:Performed By: #### HAABT, MITOM2, HCV RX PCR, HBSAB, CERULOP, IGG, L-K MICRO, HEMOCHROM, HBCAB, ALPHA PHEN, HCBIGM, POLO, SMAB, HBSAG, HAAB, AFPTM #### [facility] , #### JAS, PT, CMP #### [facility] [address] [place] [address] USAAlbumin [Mass/volume] in Serum or Plasma by Bromocresol green (BCG) dye binding methoOrdered By: Imad Asaad on 69-87-8748Fnczjvd BCG dye [Mass/Vol]4.2 g/dL3.5-5.7FHocking Valley Community HospitalAlkaline phosphatase [Enzymatic activity/volume] in Serum or PlasmaOrdered By: Imad Asaad on 98-77-3022BMD [Catalytic activity/Vol]194 U/QTxzf67-509YhlbjtvibSheltering Arms HospitalComment on above:Performed By: #### HAABT, MITOM2, HCV RX PCR, HBSAB, CERULOP, IGG, L-K MICRO, HEMOCHROM, HBCAB, ALPHA PHEN, HCBIGM, POLO, SMAB, HBSAG, HAAB, AFPTM #### [facility] , #### JAS, PT, CMP #### [facility] [address] [place] [id number] HVSRkjxf-9-Gorelfamdlj Phenotypeon 26-36-7074Cdxyw 1 Anti-Oxezqbg567 mg/iSYuyzmj250-656Rgs [facility] Physician GroupComment on above: Performed By: #### HAABT, MITOM2, HCV RX PCR, HBSAB, CERULOP, IGG, L-K MICRO, HEMOCHROM, HBCAB, ALPHA PHEN, HCBIGM, POLO, SMAB, HBSAG, HAAB, AFPTM #### [facility] , #### JAS, PT, CMP #### [facility] [address] [place] [address] USAPhenotype (P1)MZNormal.The [facility]ician Group Comment on above:Result Comment: MM Phenotype is considered to be normal , producing normal serum levels of ieydo-4-xjdrcvem inhibitor and not associated with clinical disease. [...] Ranges used to confirm phenotype. Performed at: [address] [id number] Cigarette Making Examiner: Alonzo Haro PhD, Phone: [phone] Performed at: [address] [id number] Cigarette Making Examiner: Rachell Rico MD, Phone: [phone] By: #### HAABT, MITOM2, HCV RX PCR, HBSAB, CERULOP, IGG, L-K MICRO, HEMOCHROM, HBCAB, ALPHA PHEN, HCBIGM, POLO, SMAB, HBSAG, HAAB, AFPTM #### [facility] , #### JAS, PT, CMP #### [facility] [address] [place] [address] USAAspartate aminotransferase [Enzymatic activity/volume] in Serum or PlasmaOrdered By: Andry Morales on 37-34-3861HMH [Catalytic activity/Vol] 41 U/ZZkkr77-79MsatkubzsSheltering Arms HospitalComment on above:Performed By: #### HAABT, MITOM2, HCV RX PCR, HBSAB, CERULOP, IGG, L-K MICRO, HEMOCHROM, HBCAB, ALPHA PHEN, HCBIGM, POLO, SMAB, HBSAG, HAAB, AFPTM #### [facility] , #### JAS, PT, CMP #### [facility] [address] [place] [address] USABilirubin.total [Mass/volume] in Serum or PlasmaOrdered By: Andry Morales on 07-11-6425Gulyxdwbu [Mass/Vol]0.9 mg/dLNormal0.3-1.0S[facility] HospitalComment on above:Performed By: #### HAABT, MITOM2, HCV RX PCR, HBSAB, CERULOP, IGG, L-K MICRO, HEMOCHROM, HBCAB, ALPHA PHEN, HCBIGM, POLO, SMAB, HBSAG, HAAB, AFPTM #### [facility] , #### JAS, PT, CMP #### [facility] [address] [place] [address] USABlood or tissue HFE gene mutations identification by molecular genetics methodOrdered By: Andry Morales on 32-88-5594MJT gene targeted mutation analysis Mol[employer] Nom (Bld/Tiss)Comment.[facility] Comment on above:Result:c.845G>A (p.Qgx740Tkc) - Not Detectedc.187C>G (p.Jcw44Pum) - Not Detectedc.193A>T (p.Rjk30Pov) - Not DetectedNot associated with increased risk to develop clinicalsymptoms of Hereditary Hemochromatosis. In symptomaticindividuals, other causes of iron overload should beevaluated. See Additional Information and Comments.Additional Clinical Information:Hereditary hemochromatosis (HFErelated) is an autosomalrecessive iron storage disorder. Patients [...] recommended for patientswho are homozygous for c.845G>A (p.Psn734Pvj) and have yetto experience clinical symptoms.Comments:The most common HFE variants associated with hereditaryhemochromatosis are c.845G>A (p.Kxj274Ads), c.187C>G(p.Ter15Pfg), c.193A>T (p.Eae86Plv). While patientshomozygous for c.845G>A (p.Dva949Whc) are the most likelyto present clinical symptoms, less than 10% developclinically significant iron overload with tissue and organdamage.Genetic counseling is recommended to discuss the potentialclinical implications of positive results, as well asrecommendations for testing family members.Genetic Coordinators are available for health careproviders to discuss results at [phone]).Test Details:Three variants analyzed:c.845G>A (p.Uce992Mjx), commonly referred to as C282Yc.187C>G (p.Rap90Qgz), commonly referred to as H63Dc.193A>T (p.Ern23Rld), commonly referred to zmM21ILvhhqio/Limitations:DNA Analysis of the HFE gene (NM_000410.4) was [...] was developed and its performancecharacteristics determined by [employer]. It has not beencleared or approved by the Food and Drug Administration.References:Heriberto BR, Scott PC, Lyle KV, Darrell LW, Abdias ;[employer] Liver Diseases.Diagnosis and management of hemochromatosis: 2011 practiceguideline by the [employer] Association for the Study ofLiver Diseases. Hepatology. 2010;54(1):328-43. doi:10.1002/hep.86347. PMID: 84187832; PMCID: WBB0352184.Doris G, Jose P, Desiree DW, Kourtney H, Sue O,Teofilo S, Israel I, Enrique M, Gokul S. [facility] best practiceguidelines for the molecular genetic diagnosis ofhereditary hemochromatosis (HH). Eur J Hum Mariah. 2016Ap r;24(4):479-95. doi: 10.1038/ejhg.2015.128. Epub 2014. PMID: 14529161; PMCID: PDA6198474.Calcium [Mass/volume] in Serum or PlasmaOrdered By: Imantonia Salgado on 77-49-3339Dqcwxql [Mass/Vol]10.1 mg/dLNormal8.6-10.3FHocking Valley Community HospitalComment on above:Performed By: #### HAABT, MITOM2, HCV RX PCR, HBSAB, CERULOP, IGG, L-K MICRO, HEMOCHROM, HBCAB, ALPHA PHEN, HCBIGM, POLO, SMAB, HBSAG, HAAB, AFPTM #### [facility] , #### JAS, PT, CMP #### [facility] [address] [place] [address] USACarbon dioxide, total [Moles/volume] in Serum or Plasma Ordered By: Imantonia Morales on 75-70-6889PV9 [Moles/Vol]29.4 mmol/GYvmcun91.0-31.0 [facility] HospitalComment on above:Performed By: #### HAABT, MITOM2, HCV RX PCR, HBSAB, CERULOP, IGG, L-K MICRO, HEMOCHROM, HBCAB, ALPHA PHEN, HCBIGM, POLO, SMAB, HBSAG, HAAB, AFPTM #### [facility] , #### JAS, PT, CMP #### [place] [id number] USACeruloplasminon 69-58-9563Bybydwwksuxpd46.7 mg/dLHigh 16.0-31.0The [facility] Physician GroupComment on above:Result Comment: Performed at: - [facility] [id number] Cigarette Making Examiner: Alonzo Haro PhD, Phone: [phone] PERFORMED BY: [place] [address] PATHOLOGIST PSYCHIATRIC ARNP GAGAN CAMEJO M.D.Performed By: #### HAABT, MITOM2, HCV RX PCR, HBSAB, CERULOP, IGG, L-K MICRO, HEMOCHROM, HBCAB, ALPHA PHEN, HCBIGM, POLO, SMAB, HBSAG, HAAB, AFPTM #### [facility] , #### JAS, PT, CMP #### [facility] [address] [place] [address] USAChloride [Moles/volume] in Serum or PlasmaOrdered By: Imad Asaad on 37-90-4696Pqsmravb [Moles/Vol]98 mmol/ZWczkvu04-139OgjnxevocSheltering Arms HospitalComment on above:Performed By: #### HAABT, MITOM2, HCV RX PCR, HBSAB, CERULOP, IGG, L-K MICRO, HEMOCHROM, HBCAB, ALPHA PHEN, HCBIGM, POLO, SMAB, HBSAG, HAAB, AFPTM #### [facility] , #### JAS, PT, CMP #### [facility] [address] [place] [address] USAComprehensive Metabolic Panelon 67-09-7277Bypsgfe [Mass/Vol]4.2 g/dLNormal3.5-5.7The [facility] Physician GroupComment on above: Performed By: #### HAABT, MITOM2, HCV RX PCR, HBSAB, CERULOP, IGG, L-K MICRO, HEMOCHROM, HBCAB, ALPHA PHEN, HCBIGM, POLO, SMAB, HBSAG, HAAB, AFPTM #### [facility] , #### JAS, PT, CMP #### [facility] [address] [place], [place] [id number] USAGFR/1.73 sq M.predicted MDRD (S/P/Bld) [Vol rate/Area] 36.466 mL/min/{1.73_m2}NormalThe [facility] Physician GroupComment on above: Performed By: #### HAABT, MITOM2, HCV RX PCR, HBSAB, CERULOP, IGG, L-K MICRO, HEMOCHROM, HBCAB, ALPHA PHEN, HCBIGM, POLO, SMAB, HBSAG, HAAB, AFPTM #### [facility] , #### JAS, PT, CMP #### [facility] [address] [place] [address] USACreatinine [Mass/volume] in Serum or PlasmaOrdered By: Andry Morales on 88-90-7717Kramhatjwf [Mass/Vol]1.78 mg/dLHigh0.70-1.30S[facility] HospitalComment on above:Performed By: #### HAABT, MITOM2, HCV RX PCR, HBSAB, CERULOP, IGG, L-K MICRO, HEMOCHROM, HBCAB, ALPHA PHEN, HCBIGM, POLO, SMAB, HBSAG, HAAB, AFPTM #### [facility] , #### JAS, PT, CMP #### [place] [address] USAFerritin [Mass/volume] in Serum or PlasmaOrdered By: Imad Asaad on 63-16-4841Mbhcfwgj [Mass/Vol]440.7 ng/bLPmft09.9-336.2FHocking Valley Community HospitalComment on above:Result Comment: PERFORMED BY: [place] [address] PATHOLOGIST PSYCHIATRIC ARNP GAGAN CAMEJO M.D.Performed By: #### HAABT, MITOM2, HCV RX PCR, HBSAB, CERULOP, IGG, L-K MICRO, HEMOCHROM, HBCAB, ALPHA PHEN, HCBIGM, POLO, SMAB, HBSAG, HAAB, AFPTM #### [facility] , #### JAS, PT, CMP #### [facility] [address] [place] [id number] USAGlucose [Mass/volume] in Serum or PlasmaOrdered By: Andry Morales on 16-06-4721Gyarkpn [Mass/Vol]219 mg/xEIkji68-412JjkdfyvjySheltering Arms HospitalComment on above:ADA recommended reference rangeRandom Glucose Reference Range is dependent on time and content of last meal. Glucose of more than 200 mg/dL in a nonstressed, ambulatory subject supports the diagnosisof Diabetes Mellitus.Result Comment: Random Glucose Reference Range is dependent on time and content of last meal. Glucose of more than 200 mg/dL in a nonstressed, ambulatory subject supports the diagnosis of Diabetes Mellitus. ADA recommended reference rangePerformed By: #### HAABT, MITOM2, HCV RX PCR, HBSAB, CERULOP, IGG, L-K MICRO, HEMOCHROM, HBCAB, ALPHA PHEN, HCBIGM, POLO, SMAB, HBSAG, HAAB, AFPTM #### [facility] , #### JAS, PT, CMP #### [facility] [address] [place] [id number] USAHep C Ab wRfx to Qnt PCRon 78-78-9686Jdqkywrfi C Virus AntibodyNon-ReactiveNormalNon ReactiveThe [facility] Physician GroupComment on above:Performed By: #### HAABT, MITOM2, HCV RX PCR, HBSAB, CERULOP, IGG, L-K MICRO, HEMOCHROM, HBCAB, ALPHA PHEN, HCBIGM, POLO, SMAB, HBSAG, HAAB, AFPTM #### [facility] , #### JAS, PT, CMP #### [facility] [address] [place] [address] USAInterpretation Hepatitis CCommentNormal.The [facility] Physician GroupComment on above:Result Comment: Not infected with HCV unless early or acute infection is suspected (which may be delayed in an immunocompromised individual), or other evidence exists to indicate HCV infection.Performed By: #### HAABT, MITOM2, HCV RX PCR, HBSAB, CERULOP, IGG, L-K MICRO, HEMOCHROM, HBCAB, ALPHA PHEN, HCBIGM, POLO, SMAB, HBSAG, HAAB, AFPTM #### [facility] , #### JAS, PT, CMP #### [place] [address] USAHepatitis A Antibody IgMon 24-53-6240Adosncljh A Antibody IgMNegativeNormalNegativeThe [facility] Physician GroupComment on above:Result Comment: A negative anti-HAV IgM result suggests no recent or current HAV infection.Performed By: #### HAABT, MITOM2, HCV RX PCR, HBSAB, CERULOP, IGG, L-K MICRO, HEMOCHROM, HBCAB, ALPHA PHEN, HCBIGM, POLO, SMAB, HBSAG, HAAB, AFPTM #### [facility] , #### JAS, PT, CMP #### [place] [address] USAHepatitis A Antibody Totalon 06-46-1908Oaxxbupml A Antibody TotalNegativeNormalNegativeThe [facility] Physician GroupComment on above:Result Comment: Comment: The HAV total antibody assay detects both IgG and IgM but does not differentiate between them. A negative result suggests susceptibility to infection. A positive result could be due to vaccination, previously resolved infection or active infection. Testing for HAV IgM should be performed if active HAV infection is suspected. [facility] offers profiles that will automatically reflex positive HAV total antibody results to IgM (e.g., panel #[id number] HAV Antibody w/ Rfx).Performed By: #### HAABT, MITOM2, HCV RX PCR, HBSAB, CERULOP, IGG, L-K MICRO, HEMOCHROM, HBCAB, ALPHA PHEN, HCBIGM, POLO, SMAB, HBSAG, HAAB, AFPTM #### [facility] , #### JAS, PT, CMP #### [facility] [address] [place] [address] USAHepatitis A virus Ab [Presence] in Serum by Immunoassay Ordered By: Andry Morales on 76-07-7592LFY Ab IA Ql (S)NegativeNegativeSheltering Arms HospitalComment on above:Comment: The HAV total antibody assay detects both IgG andIgM but does not differentiate between them. A negativeresult suggests susceptibility to infection. A positiveresult could be due to vaccination, previously resolvedinfection or active infection. Testing for HAV IgM shouldbe performed if active HAV infection is suspected. [facility]ers profiles that will automatically reflex positive HAVtotal antibody results to IgM (e.g., panel #[id number] HAVAntibody w/ Rfx).Hepatitis B Core Antibodyon 14-10-2985Akudzjsos B Core AntibodyNegativeNormalNegativeThe [facility] Physician GroupComment on above:Performed By: #### HAABT, MITOM2, HCV RX PCR, HBSAB, CERULOP, IGG, L-K MICRO, HEMOCHROM, HBCAB, ALPHA PHEN, HCBIGM, POLO, SMAB, HBSAG, HAAB, AFPTM #### [facility] , #### JAS, PT, CMP #### [facility] [address] [place] [address] USAHepatitis B Core Antibody IgMon 95-54-0417Nhybanuxp B Core Antibody IgMNegativeNormalNegativeThe [facility] Physician GroupComment on above:Result Comment: Performed at: - [facility] [id number] Cigarette Making Examiner: Alonzo Haro PhD, Phone: [phone] By: #### HAABT, MITOM2, HCV RX PCR, HBSAB, CERULOP, IGG, L-K MICRO, HEMOCHROM, HBCAB, ALPHA PHEN, HCBIGM, POLO, SMAB, HBSAG, HAAB, AFPTM #### [facility] , #### JAS, PT, CMP #### [place] [id number] USAHepatitis B Surface Antibodyon 96-15-9390Nklltkmyn B Surface AntibodyNon-ReactiveNormal.The [facility] Physician GroupComment on above:Result Comment: Non Reactive: Not immune to HBV infection. Equivocal: Unable to determine if anti-HBs is present at levels consistent with immunity. Reactive: Anti-HBs concentration detected at greater than 10 mIU/mL. Individual is considered to be immune to infection with HBV.Performed By: #### HAABT, MITOM2, HCV RX PCR, HBSAB, CERULOP, IGG, L-K MICRO, HEMOCHROM, HBCAB, ALPHA PHEN, HCBIGM, POLO, SMAB, HBSAG, HAAB, AFPTM #### [facility] , #### JAS, PT, CMP #### [facility] [address] [place] [address] USAHepatitis B Surface Antigenon 04-32-2823MSlHz Screen NegativeNormalNegativeThe Special Care HospitalComment on above:Result Comment: PERFORMED BY: [place] [address] PATHOLOGIST PSYCHIATRIC ARNP GAGAN CAMEJO M.D.Performed By: #### HAABT, MITOM2, HCV RX PCR, HBSAB, CERULOP, IGG, L-K MICRO, HEMOCHROM, HBCAB, ALPHA PHEN, HCBIGM, POLO, SMAB, HBSAG, HAAB, AFPTM #### [facility] , #### JAS, PT, CMP #### [facility] [address] [place] [address] USAHepatitis B virus surface Ab [Presence] in SerumOrdered By: Imad Asaad on 09-40-0100OUV surface Ab Ql (S)Non-Reactive.[facility] HospitalComment on above:Non Reactive: Not immune to HBV infection. Equivocal: Unable to determine if anti-HBs is present atlevels consistent with immunity. Reactive: Anti-HBs concentration detected at greater than 10 mIU/mL. Individual is considered to be immune to infection with HBV.Hepatitis B virus surface Ag [Presence] in Serum or Plasma by ImmunoassayOrdered By: Imad Asaad on 54-30-2222CYJ surface Ag IA QlNegativeNegativeSheltering Arms Hospital Hepatitis C virus IgG Ab [Presence] in Serum or Plasma by ImmunoassayOrdered By: Imad Asaad on 31-00-5036IWL IgG IA QlNon-ReactiveNon ReactiveSheltering Arms HospitalHereditary Hemochromatosis,DNAon 48-33-8455Tqxosshqiu HemochromatosisCommentNormal.The [facility] Physician GroupComment on above: Result Comment: Result: c.845G>A (p.Uca135Ffi) - Not Detected c.187C>G (p.Rqy68Lnl) - Not Detected c.193A>T (p.Zdd72Ues) - Not Detected Not associated with increased [...] for patients who are homozygous for c.845G>A (p.Qwo226Dcg) and have yet to experience clinical symptoms. Comments: The most common HFE variants associated with hereditary hemochromatosis are c.845G>A (p.Oby479Dlp), c.187C>G (p.Nbn29Ckb), c.193A>T (p.Ocy25Rqo). While patients homozygous for c.845G>A (p.Hda844Bxz) are the most likely to present clinical symptoms, less than 10% develop clinically significant iron overload with tissue and organ damage. Genetic counseling is recommended to discuss the potential clinical implications of positive results, as well as recommendations for testing family members. Genetic Coordinators are available for health care providers to discuss results at [phone] Test Details: Three variants analyzed: c.845G>A (p.Qfc730Jzs), commonly referred to as C282Y c.187C>G (p.Dtd70Ynz), commonly referred to as H63D c.193A>T (p.Lak77Vqu), commonly referred to as S65C Methods/Limitations: DNA [...] developed and its performance characteristics determined by [facility] [employer]. It has not been cleared or approved by the Food and Drug Administration. References: Heriberto BR, Scott PC, Lyle KV, Darrell LW, Abdias ; [employer] Liver [employer]. Diagnosis and management of hemochromatosis: 2011 practice guideline by the [employer] Liver Diseases. Hepatology. 2010;54(1):328-43. doi: 10.1002/hep.70375. PMID: 14898604; PMCID: YSV2896211. Doris G, Jose P, Desiree DW, Kourtney H, Sue O, Teofilo S, Israel I, Enrique M, Gokul S. EMQN best practice guidelines for the molecular genetic diagnosis of hereditary hemochromatosis (HH). Eur J Hum Mariah. 2016 Dec;24(4):479-95. doi: 10.1038/ejhg.2015.128. Epub 2014Mar 22. PMID: 63441918; PMCID: [id number].Performed By: #### HAABT, MITOM2, HCV RX PCR, HBSAB, CERULOP, IGG, L-K MICRO, HEMOCHROM, HBCAB, ALPHA PHEN, HCBIGM, POLO, SMAB, HBSAG, HAAB, AFPTM #### [facility] , #### JAS, PT, CMP #### [place] [address] USAReviewed by:CommentNormal.The [facility] Comment on above:Result Comment: Sarah Darby, PhD Director, Molecular Genetics Performed at: - [facility] [address] [place], [place] [id number] Cigarette Making Examiner: Marc Ervin [facility], Phone: [phone] PERFORMED BY: [address] [address] PATHOLOGIST PSYCHIATRIC ARNP GAGAN CAMEJO M.D.Performed By: #### HAABT, MITOM2, HCV RX PCR, HBSAB, CERULOP, IGG, L-K MICRO, HEMOCHROM, HBCAB, ALPHA PHEN, HCBIGM, PLOO, SMAB, HBSAG, HAAB, AFPTM #### [facility] , #### JAS, PT, CMP #### [address] [address] USAINR in Platelet poor plasma by Coagulation assayOrdered By: Andry Morales on 20-08-8096HOC Coag (PPP) [Relative time]1.1 {INR}Normal [facility] HospitalComment on above:INR Therapeutic Range A) Pre- and Peroperative OAT started two weeks before surgery. NOT HIP SURGERY: 1.5 - 2.5 HIP SURGERY: 2 - 3B) Primary and secondary prevention of venous THROMBOSIS: 2 - 3C) Active venous thrombosis, pulmonary embolismand prevention of recurrent venous thrombosis: 2 - 3D) Prevention of arterial thromboembolismincluding patients with mechanical heart valves: 3 - 4.5Result Comment: INR Therapeutic Range A) Pre- and [...] heart valves: 3 - 4.5 PERFORMED BY: [address] [address] PATHOLOGIST PSYCHIATRIC ARNP GAGAN CAMEJO M.D.Performed By: #### HAABT, MITOM2, HCV RX PCR, HBSAB, CERULOP, IGG, L-K MICRO, HEMOCHROM, HBCAB, ALPHA PHEN, HCBIGM, POLO, SMAB, HBSAG, HAAB, AFPTM #### [facility] , #### JAS, PT, CMP #### [facility] [address] [place] [address] USAIgG [Mass/volume] in Serum or PlasmaOrdered By: Imad Asaad on 17-19-4167VtI [Mass/Vol]1951 mg/kATffz625-2373IwaqcgnshSheltering Arms HospitalComment on above:Performed at: [address] [id number] Director: Alonzo Haro PhD, Phone: [phone] Immunoglobulin Osmel 58-69-7229Srxhbpqvvpgnxk G1951 mg/sOQeaa449-4132Ocm [facility] Physician GroupComment on above:Result Comment: Performed at: [address] [id number] Cigarette Making Examiner: Alonzo Haro PhD, Phone: [phone] By: #### HAABT, MITOM2, HCV RX PCR, HBSAB, CERULOP, IGG, L-K MICRO, HEMOCHROM, HBCAB, ALPHA PHEN, HCBIGM, POLO, SMAB, HBSAG, HAAB, AFPTM #### [facility] , #### JAS, PT, CMP #### [facility] [address] [place] [address] USALiver-Kidney Microsomal Abon 03-59-2339Mzgta-Kidney Microsomal Ab<1.4Rdkhod0.0-20.0The Special Care HospitalComment on above: Result Comment: Negative 0.0 - 20.0 Equivocal 20.1 - 24.9 Positive >24.9 LKM type 1 antibodies are detected in patients with autoimmune hepatitis type 2 and in up to 8% of patients with chronic HCV infection. Performed at: [facility] [id number] Cigarette Making Examiner: Alonzo Haro PhD, Phone: [phone] By: #### HAABT, MITOM2, HCV RX PCR, HBSAB, CERULOP, IGG, L-K MICRO, HEMOCHROM, HBCAB, ALPHA PHEN, HCBIGM, POLO, SMAB, HBSAG, HAAB, AFPTM #### [facility] , #### JAS, PT, CMP #### [facility] [address] [id number] USAMitochondrial (M2) Antibodyon 88-55-3672Zjzpanuoifsei (M2) Antibody<20.2Owewcp1.0-20.0The [facility] Physician GroupComment on above:Result Comment: Negative 0.0 - 20.0 Equivocal 20.1 - 24.9 Positive >24.9 Mitochondrial (M2) Antibodies are found in 90-96% of patients with primary biliary cirrhosis. Performed at: That{img} [address] [id number] Cigarette Making Examiner: Alonzo Haro PhD, Phone: [phone] By: #### HAABT, MITOM2, HCV RX PCR, HBSAB, CERULOP, IGG, L-K MICRO, HEMOCHROM, HBCAB, ALPHA PHEN, HCBIGM, POLO, SMAB, HBSAG, HAAB, AFPTM #### [facility] , #### JAS, PT, CMP #### [facility] [address] [place], [place] [address] USANo Panel InformationOrdered By: Andry Morales on 06-17-2024 Estimated GFR (CKD-EPI)36.466 mL/MinSheltering Arms Hospital Hemochromatosis NoteComment.Sheltering Arms HospitalComment on above: Sarah Darby, PhDDirector, Molecular GeneticsPerformed at: [facility] [address] [facility], [place], [place] [address]Tmw Director: Marc Ervin [facility], Phone: [phone] A IgM AntibodyNegativeNegMercy HealthComment on above:A negative anti-HAV IgM result suggests no recent orcurrent HAV infection.Hepatitis B Core IgM AntibodyNegativeNegativeSheltering Arms HospitalComment on above:Performed at: That{img} [address] [id number] Director: Alonzo Haro PhD, Phone: [phone] B Core Total AntibodyNegativeNegativeSheltering Arms HospitalHepatitis C InterpretationComment.[facility] HospitalComment on above:Not infected with HCV unless early or acute infection issuspected (which may be delayed in an immunocompromisedindividual), or other evidence exists to indicate HCVinfection.Pharmacy Creatinine Clearance (ChemN/A Shel[facility] Arms HospitalPotassium [Moles/volume] in Serum or Plasma Ordered By: Andry Morales on 86-73-1509Lqgbwizbx [Moles/Vol]4.4 mmol/LNormal3.5-5.1 [facility] HospitalComment on above:Performed By: #### HAABT, MITOM2, HCV RX PCR, HBSAB, CERULOP, IGG, L-K MICRO, HEMOCHROM, HBCAB, ALPHA PHEN, HCBIGM, POLO, SMAB, HBSAG, HAAB, AFPTM #### [facility] , #### JAS, PT, CMP #### [facility] [address] [id number] USAProtein [Mass/volume] in Serum or PlasmaOrdered By: Andry Morales on 04-14-4889Iclqpwt [Mass/Vol]8.2 g/dLNormal6.4-8.9S[facility] Arms HospitalComment on above:Performed By: #### HAABT, MITOM2, HCV RX PCR, HBSAB, CERULOP, IGG, L-K MICRO, HEMOCHROM, HBCAB, ALPHA PHEN, HCBIGM, POLO, SMAB, HBSAG, HAAB, AFPTM #### [facility] , #### JAS, PT, CMP #### [facility] [address] [id number] USAProthrombin time (PT)Ordered By: Andry Morales on 06-17-2024 PT Coag (PPP) [Time]13.0 sHigh9.0-12.9S[facility] Arms HospitalComment on above:A hematocrit value greater than 55% may lead to inaccurate results in coagulation testing. Patientshaving hematocrit values >55% require a special collection tube for coagulation studies. Please contact the laboratory at [phone] for redraw instructions.Result Comment: A hematocrit value greater than 55% may lead to inaccurate results in coagulation testing. Patients having hematocrit values >55% require a special collection tube for coagulation studies. Please contact the laboratory at [phone] for redraw instructions.Performed By: #### HAABT, MITOM2, HCV RX PCR, HBSAB, CERULOP, IGG, L-K MICRO, HEMOCHROM, HBCAB, ALPHA PHEN, HCBIGM, POLO, SMAB, HBSAG, HAAB, AFPTM #### [facility] , #### JAS, PT, CMP #### [address] [address] USASerum arzpq-8-ilblzysbeyd measurementOrdered By: [facility] on 66-63-0643Luzst 1 antitrypsin [Mass/Vol]126 mg/jB635-676LiojiaybnMercy Health Clermont Hospitalerum globulin measurement by calculation (mass/volume) Ordered By: [facility] on 75-37-5584Irajocqn (S) [Mass/Vol]4.0 g/dLNormal [facility] HospitalComment on above:Performed By: #### HAABT, MITOM2, HCV RX PCR, HBSAB, CERULOP, IGG, L-K MICRO, HEMOCHROM, HBCAB, ALPHA PHEN, HCBIGM, POLO, SMAB, HBSAG, HAAB, AFPTM #### [facility] , #### JAS, PT, CMP #### [facility] [address] [place] [address] USASerum homogeneous pattern antinuclear antibody (POLO) titer Ordered By: [facility] on 15-84-8704Bhnnbwqyfb nuclear Ab pattern (S) [Titer]N/A [facility] Clermont Hospitalerum mitochondria M2 IgG antibody assay (units/volume)Ordered By: [facility] on 05-09-0061Lkyuffxrydwf M2 IgG Qn (S) <20.0 Units0.0-20.0S[facility] Arms HospitalComment on above:Negative 0.0 - 20.0 Equivocal 20.1 - 24.9 Positive >24.9Mitochondrial (M2) Antibodies are found in 90-96% ofpatients with primary biliary cirrhosis.Performed at: [facility]ueRobert [facility] Hospital at RahwayDjasep[address] [place], [place] [id number] Director: Alonzo Haro PhD, Phone: [phone] nuclear antibody titerOrdered By: Andry Morales on 54-77-5571Hfkwasc Ab (S) [Titer]Negative.S[facility] Arms HospitalComment on above:Negative <1:80 Borderline 1:80 Positive >1:80ICAP nomenclature: AC-0For more information about Hep-2 cell patterns useANApatterns.org, the official website for theInternational Consensus on Anti nuclear Antibody (POLO)Patterns (ICAP).Performed at: [facility]ablueRobert [facility] Hospital at RahwayBrwrln[address] [place], [id number] Director: Alonzo Haro PhD, Phone: [phone] or plasma albumin/globulin mass ratioOrdered By: Andry Morales on 46-45-1711Rjenufq/Globulin [Mass ratio]1.1 {ratio}[facility] State Health SystemComment on above:Performed By: #### HAABT, MITOM2, HCV RX PCR, HBSAB, CERULOP, IGG, L-K MICRO, HEMOCHROM, HBCAB, ALPHA PHEN, HCBIGM, POLO, SMAB, HBSAG, HAAB, AFPTM #### [facility] , #### JAS, PT, CMP #### [facility] [address] [place], [place] [address] USASerum or plasma alpha 1 antitrypsin phenotyping identification by immunofixationOrdered By: Andry Morales on 86-00-5971Rkekl 1 antitrypsin phenotyping Immunofixation NomMz.[facility] Comment on above: MM Phenotype is considered to be normal , producingnormal serum levels of kwihl-8-pupwiwsn inhibitor andnot associated with clinical disease. Associated R2Rwtfbj serum levels in other phenotypes and theirincidence in the general population are shown in thetable below.Phenotype Population % function A-1-AT Conc.* Incidence % compared to MM (Typical Range) MM 86.5% 100% (96 - 189) MS 8.0% 86% (83 - 161) MZ 3.9% 61% (60 - 111) FM 0.4% 100% (93 - 191) SZ 0.3% 41% (42 - 75) SS 0.1% 64% (62 - 119)ZZ 0.05% 19% (16 - 38) FS 0.05% 70% (70 - 128) FZ Unknown 46% (44 - 88) FF Unknown Unknown*A-1-AT concentration in the homozygous MM phenotype is taken as the reference normal. Percent deficiency in each phenotype is reported relative to this reference. Ranges used to confirm phenotype.Performed at: [address] [id number] Director: Alonzo Haro PhD, Phone: [phone] at: [address] [id number] Director: Rachell Rico MD, Phone: [phone] or plasma ufuuc-2-usduaoonjcy tumor marker measurement (mass/volume)Ordered By: Andry Morales on 14-79-2971MRD.tumor marker [Mass/Vol]3.0 ng/mL0.0-6.4FHocking Valley Community HospitalComment on above:[employer] Electrochemiluminescence Immunoassay(ECLIA)Values obtained with different assay methods or kits cannotbe used interchangeably. Results cannot be interpreted asabsolute evidence of the presence or absence of malignantdisease.This test is not interpretable in females.Performed at: [address] [id number] Director: Alonzo Haro PhD, Phone: [phone] or plasma anion gap determination Ordered By: antonia Morales on 35-60-1169Julzw gap [Moles/Vol]16.0 mmol/LHigh6.0-15.0 [facility] HospitalComment on above:Performed By: #### HAABT, MITOM2, HCV RX PCR, HBSAB, CERULOP, IGG, L-K MICRO, HEMOCHROM, HBCAB, ALPHA PHEN, HCBIGM, POLO, SMAB, HBSAG, HAAB, AFPTM #### [facility] , #### JAS, PT, CMP #### [facility] [address] [place] [address] USASerum or plasma ceruloplasmin measurement (mass/volume) Ordered By: Andry Morales on 12-47-7172Nxqiklyxhdkto [Mass/Vol]38.7 mg/dLHigh 16.0-31.0S[facility] Arms HospitalComment on above:Performed at: [address] [id number] Director: Alonzo Haro PhD, Phone: [phone] or plasma lipoprotein a measurement (moles/volume)Ordered By: Andry Morales on 80-16-3032Dnckkrcipxk a [Moles/Vol]<1.0 Units0.0-20.0S[facility] Arms HospitalComment on above:Negative 0.0 - 20.0 Equivocal 20.1 - 24.9 Positive >24.9LKM type 1 antibodies are detected in patients withautoimmune hepatitis type 2 and in up to 8% ofpatients with chronic HCV infection.Performed at: [facility] DutyCalculator[address] [id number] Director: Alonzo Haro PhD,Phone: [phone] Muscle Antibodyon 51-61-5924Xtijhn Muscle Poqftieq21Vrlzns4-01Yzg [facility] Physician GroupComment on above:Result Comment: Negative 0 - 19 Weak positive 20 - 30 Moderate to strong positive >30 Actin Antibodies are found in 52-85% of patients with autoimmune hepatitis or chronic active hepatitis and in 22% of patients with primary biliary cirrhosis.Performed By: #### HAABT, MITOM2, HCV RX PCR, HBSAB, CERULOP, IGG, L-K MICRO, HEMOCHROM, HBCAB, ALPHA PHEN, HCBIGM, POLO, SMAB, HBSAG, HAAB, AFPTM #### [facility] , #### JAS, PT, CMP #### [facility] [address] [place] [address] USASodium [Moles/volume] in Serum or PlasmaOrdered By: Andry Morales on 08-51-3867Whvopw [Moles/Vol]139 mmol/BMnbzfj972-781MwgqywckqSheltering Arms HospitalComment on above:Performed By: #### HAABT, MITOM2, HCV RX PCR, HBSAB, CERULOP, IGG, L-K MICRO, HEMOCHROM, HBCAB, ALPHA PHEN, HCBIGM, POLO, SMAB, HBSAG, HAAB, AFPTM #### [facility] , #### JAS, PT, CMP #### [facility] [address] [id number] USAUrea nitrogen [Mass/volume] in Serum or PlasmaOrdered By: Imad Asaad on 43-04-2504Wvex nitrogen [Mass/Vol]43 mg/dLHigh7-25S[facility] Arms HospitalComment on above:Performed By: #### HAABT, MITOM2, HCV RX PCR, HBSAB, CERULOP, IGG, L-K MICRO, HEMOCHROM, HBCAB, ALPHA PHEN, HCBIGM, POLO, SMAB, HBSAG, HAAB, AFPTM #### [facility] , #### JAS, PT, CMP #### [facility] [address] [place] [address] [place] ECHO DOPPLER COMPLETEon 78-94-3514[place]zh[place], [place] [address] Cardiology Report Signed Patient: CARLO HENDERSON MR#: [id number] : 1935 Acct:[id number] Age/Sex: 88 / M ADM Date: 05/27/24 Loc: CARD Attending Dr: Jessy Lamas M.D. Ordering Physician: Jessy Lamas M.D. Date of Service: 05/27/24 Procedure(s): CA echo doppler complete Accession Number(s): [id number] cc: Jessy Lamas M.D.; Jose Brewer M.D. Patient Name: CARLO HENDERSON MR#: [id number] : 1935 Exam Date: 05/27/2024 Ordering Doctor: DR JESSY LAMAS M.D. ECHOCARDIOGRAM REPORT PROCEDURE: CA ECHO DOPPLER [...] Area (VTI): 1.48 cm2, 1.48 cm2 Deceleration Casey: 1.66 m/s2 Pressure Half-Time: 596.82 ms Peak [...] mm[Hg], 4.21 mm[Hg] Right Atrium Dictated by: Jessy Lamas M.D. on 05/27/2024 at 17:31 Approv (more content not included)...TBHRadiology, Radiologist, MD - 05/27/2024 [place] [address] Cardiology Report Signed Patient: CARLO HENDERSON MR#: [id number] : 1935 Acct:[id number] Age/Sex: 88 / M ADM Date: 05/27/24 Loc: CARD Attending Dr: Jessy Lamas M.D. Ordering Physician: Jessy Lamas M.D. Date of Service: 05/27/24 Procedure(s): CA echo doppler complete Accession Number(s): [id number] cc: Jessy Lamas M.D.; Jose Brewer M.D. Patient Name: CARLO HENDERSON MR#: [id number] : 1935 Exam Date: 05/27/2024 Ordering Doctor: DR JESSY LAMAS M.D. ECHOCARDIOGRAM REPORT PROCEDURE: CA ECHO DOPPLER [...] Area (VTI): 1.48 cm2, 1.48 cm2 Deceleration Casey: 1.66 m/s2 Pressure Half-Time: 596.82 ms Peak [...] mm[Hg], 4.21 mm[Hg] Right Atrium Dictated by: Jessy Lamas M.D. on 05/27/2024 at 17:31 Approved by: Jessy Lamas M.D. on 05/27/2024 at 17:35 Dictated By: Jessy Lamas M.D. Signed By: 05/27/241735 DD/ 34 TD/TT: Clinical Trial Assistant: JOSE HealthcareRadiology Study observation (narrative)[facility] ECHO DOPPLER COMPLETEOrdered By: Radiologist Radiology on 99-23-6336M[employer]O [employer] Work Phone: Erythrocyte distribution width Auto (RBC) [Ratio]on 17-14-6345Pyzsklcklyd distribution width (RBC) [Ratio]14.4 %11.0-15.0S[facility] Arms HospitalEstimated glomerular filtration rate (GFR) non- Americanon 44-22-4648KEG/1.73 sq M.predicted among non-blacks MDRD (S/P/Bld) [Vol rate/Area]38 mL/min/{1.73_m2}Low>=60[facility] Hematocrit Auto (Bld) [Volume fraction]on 70-78-6653Ojddzawcjl (Bld) [Volume fraction]39.9 %Low42.0-54.0S[facility] Arms HospitalHemoglobin [Mass/volume] in Bloodon 98-53-9802Zydeemgpsl (Bld) [Mass/Vol]13.3 g/dLLow 14.0-18.0[facility] HospitalLaboratory - Chemistry and Chemistry - challengeon 01-89-5716Facvwws [Mass/Vol]3.4 g/dL3.4-5.0S[facility] HospitalCalcium [Mass/Vol]9.4 mg/dL8.5-10.1FHocking Valley Community HospitalChloride [Moles/Vol]102 mmol/N85-229MloxhkopbSheltering Arms HospitalCO2 [Moles/Vol]29.1 mmol/L21.0-32.0S[facility] HospitalCreatinine [Mass/Vol]1.72 mg/dLHigh0.70-1.30S[facility] HospitalGFR/1.73 sq M.predicted MDRD (S/P/Bld) [Vol rate/Area]46 mL/min/{1.73_m2}Low>=60S[facility] HospitalGlucose [Mass/Vol]208 mg/gGDqnl79-771DypduqjgiSheltering Arms HospitalMagnesium [Mass/Vol]1.7 mg/dLLow1.8-2.4FHocking Valley Community HospitalPotassium [Moles/Vol]3.8 mmol/L3.5-5.1FHocking Valley Community Hospital Sodium [Moles/Vol]139 mmol/Z317-015GahxlxduoSheltering Arms HospitalUrate [Mass/Vol]6.7 mg/dL3.5-7.2FHocking Valley Community HospitalUrea nitrogen [Mass/Vol]40.0 mg/dLHigh7.0-18.0[facility] HospitalUrea nitrogen/Creatinine [Mass ratio]23.3 mg/mgSheltering Arms Hospital Bilirubin Ql (U)NegativeNEGATIVESheltering Arms HospitalGlucose (U) [Mass/Vol]mg/dLAbnormalNEGATIVESheltering Arms HospitalKetones Ql (U) NegativeNEGATIVESheltering Arms HospitalpH (U)6.0 [pH]5.0-9.0[facility]ermont Hospitalpecific gravity (U) [Rel density]1.0101.005-1.025 [facility] HospitalUrobilinogen Qn (U)0.2 {Ric'U}/dL0.2-1.0 [facility] HospitalLaboratory - Specimen informationon 04-26-2024 Appearance (U)CLEARCLEARFHocking Valley Community HospitalColor (U)LT. YELLOW YELLOWSheltering Arms HospitalLaboratory - Urinalysison 04-26-2024 Leukocyte esterase Test strip Ql (U)NegativeNEGSelect Medical OhioHealth Rehabilitation Hospital - DublinNitrite Ql (U)NegativeNEGSelect Medical OhioHealth Rehabilitation Hospital - DublinProtein (U) [Mass/Vol]9.1 mg/dL<=11.9S[facility] HospitalProtein Ql (U)Negative NEG/TRACESheltering Arms HospitalLeukocytes [#/volume] corrected for nucleated erythrocytes in Blood by Automated counon 65-59-7536ONW corrected for nucl RBC Auto (Bld) [#/Vol]6.0 10 3/uL4.0-11.0[facility] MCH Auto (RBC) [Entitic mass]on 13-74-5488KFI (RBC) [Entitic mass]33.8 pg 25.9-34.0S[facility] Arms HospitalMCHC Auto (RBC) [Mass/Vol]on 18-49-7746OWYY (RBC) [Mass/Vol]33.3 g/dL29.9-35.2FHocking Valley Community HospitalMCV Auto (RBC) [Entitic vol]on 40-90-1135JDJ (RBC) [Entitic vol]101.3 fL High80.0-94.0[facility] HospitalMicroalbumin [Mass/volume] in Urineon 05-56-0986Yhnktry DL <= 20 mg/L (U) [Mass/Vol]mg/dL<=30.0[facility] HospitalNo Panel Informationon 50-03-672950565234-Uahtzzx Vitamin D Total37.6 ng/mLSheltering Arms HospitalComment on above:<20 ng/mL Vit D ubewopipr23-<30 ng/mL Vit D wfvnozsiwumu94-971 ng/mL Vit D sufficient>100 ng/mL Potential ToxicityParathyroid Hormone (Intact)78 pg/aCTledwcrr06-49AtqvvzshhSheltering Arms HospitalComment on above:Performed at: - [place] [id number] Director: Alonzo Haro PhD, Phone: [phone] Level3.6 mg/dL2.6-4.7FHocking Valley Community HospitalUrine Occult BloodNegativeNEGATIVESheltering Arms HospitalUrine Random Creatinine<13.00 mg/dLLow20.00-300.00S[facility] Arms HospitalPlatelet mean volume Auto (Bld) [Entitic vol]on 88-95-4795Ldrwpktu mean volume (Bld) [Entitic vol]10.6 fL9.5-13.5FHocking Valley Community HospitalPlatelets Auto (Bld) [#/Vol]on 58-77-9628Huqlpfjxo (Bld) [#/Vol]131 10 3/cXDnj871-370AlsostbvhSheltering Arms HospitalRBC Auto (Bld) [#/Vol]on 63-24-7844JPC (Bld) [#/Vol]3.94 10 6/uLLow4.70-6.10[facility] Clermont Hospitalerum or plasma anion gap determinationon 73-14-2006Wwbjf gap [Moles/Vol]11.7 mmol/LFHocking Valley Community HospitalBASIC METABOLIC PANLon 93-30-9308Rftwl gap [Moles/Vol]10 mmol/L Normal5-15ProMedica Grant HospitalComment on above:Performed By: #### CBCA, BMP #### [facility] ([id number]) [address] [place] [address], [address] [place], [place] [address]Ifkibvg [Mass/Vol]8.8 mg/dLNormal8.5-10.5PSCCI Hospital LimaComment on above:Performed By: #### WILL, BMP #### [facility] ([id number]) [address], [address] [place], [place] [address]Fjwrfynj [Moles/Vol]103 mmol/TJzijkn36-505UciIcpewd Toledo HospitalComment on above:Performed By: #### WILL, BMP #### [facility] ([id number]) [address], [address] [place], [place] [address]PW4 [Moles/Vol]24 mmol/NNnpuio69-62SicThmssdSCCI Hospital Lima Comment on above:Performed By: #### WILL, BMP #### [facility] ([id number]) [address], [address] [place], [place] [address]Dyvswklrqh [Mass/Vol]1.14 mg/dLNormal0.60-1.30ProUniversity Hospitals Beachwood Medical CenterComment on above:Result Comment: METHOD TRACEABLE TO IDMS STANDARD Performed By: #### WILL, BMP #### [facility] ([id number]) [address], [address] [place], [place] [address]ISB/1.73 sq M.predicted among non-blacks MDRD (S/P/Bld) [Vol rate/Area]62 mL/min/{1.73_m2}Normal>59ProUniversity Hospitals Beachwood Medical CenterComment on above: Result Comment: Reported eGFR is based on the CKD-EPI 2020 equation that does not use a race coefficient.Performed By: #### WILL, BMP #### [facility] ([id number]) [address], [address] [place], [place] [address]Zuisrnn [Mass/Vol]155 mg/cFWfqx20-75RnvFqdczmSouthern [facility] Comment on above:Performed By: #### WILL, BMP #### [facility] ([id number]) [address], [address] [place], [place] [address]Aithvolop [Moles/Vol]3.9 mmol/LNormal3.5-5.0ProMedica Wallace HospitalComment on above:Performed By: #### CBCA, BMP #### [facility] ([id number]) [address] [address] [place], [place] [address]Vybebj [Moles/Vol]137 mmol/CXrgwyb032-193EmzLhypjk Wallace HospitalComment on above:Performed By: #### CBCA, BMP #### [facility] ([id number]) [address], [address] [place], [place] [address]Geds nitrogen [Mass/Vol]27 mg/dLNormal5-27ProOhiohealth Nelsonville Health Centerca Wallace HospitalComment on above:Performed By: #### CBCA, BMP #### [facility] ([id number]) [address], [address] [place], [place] [address]BTU AND AUTO DIFFon 66-45-1971DHEQGJRT BASOPHIL0.0 X10E9/LNormal 0.0-0.2ProMedica Wallace HospitalComment on above:Performed By: #### CBCA, BMP #### [facility] ([id number]) [address], [address] [place], [place] [address]OOLSSUPC NEUTROPHIL5.2 X10E9/LNormal1.5-6.6ProOhiohealth Nelsonville Health Centerca Wallace HospitalComment on above:Performed By: #### CBCA, BMP #### [facility] ([id number]) [address], [address] [place], [place] [address]Xwzmvdkmx/100 WBC (Bld)0.2 %NormalProPremier Health Hospital Comment on above:Performed By: #### CBCA, BMP #### [facility] ([id number]) [address], [address] [place], [place] [address]Ydxjuuyekzw (Bld) [#/Vol]0.0 10*3/uLNormal0.0-0.4ProOhiohealth Nelsonville Health Centerca Wallace HospitalComment on above:Performed By: #### CBCA, BMP #### [facility] ([id number]) [address], [address] [place], [place] [address]Evqnolswzsw/100 WBC (Bld)0.1 %NormalSouthern [facility] Medical Center Comment on above:Performed By: #### CBCA, BMP #### [facility] ([id number]) [address], [address] [place], [place] [address]Mjjtovxmdqs distribution width (RBC) [Ratio]15.0 %Normal 11.5-15.0ProPremier Health HospitalComment on above:Performed By: #### CBCA, BMP #### [facility] ([id number]) [address] [address] [place], [place] [address]Sthutyyzsy (Bld) [Volume fraction]34.7 %Bbz47-48JjaGajebi [place] HospitalComment on above:Performed By: #### CBCA, BMP #### [facility] ([id number]) [address], [address] [place], [place] [address]Fjkpomhbgz (Bld) [Mass/Vol]12.0 g/dLLow13.0-17.0ProPremier Health HospitalComment on above:Performed By: #### CBCA, BMP #### [facility] ([id number]) [address], [address] [place], [place] [address]Ofsehnmcyrw (Bld) [#/Vol]0.6 10*3/uLLow1.0-3.5ProMedica Wallace HospitalComment on above:Performed By: #### CBCA, BMP #### [facility] ([id number]) [address], [address] [place], [place] [address]Memifhwumvv/100 WBC (Bld)10.3 %NormalProPremier Health Hospital Comment on above:Performed By: #### CBCA, BMP #### [facility] ([id number]) [address], [address] [place], [place] [address]COE (RBC) [Entitic mass]34.0 fnMywhqc59-76HdbEkkwwc Wallace HospitalComment on above:Performed By: #### CBCA, BMP #### [facility] ([id number]) [address], [address] [place], [place] [address]MVUS (RBC) [Mass/Vol]34.7 g/qGWvbosr24-94CvtDvhmii Wallace HospitalComment on above:Performed By: #### CBCA, BMP #### [facility] ([id number]) [address], [address] [place], [place] [address]NXH (RBC) [Entitic vol]98 bOIkkspc00-006VlnFnjsug Wallace HospitalComment on above:Performed By: #### CBCA, BMP #### [facility] ([id number]) [address], [address] [place], [place] [address]Gwaupjkps (Bld) [#/Vol]0.3 10*3/uLNormal0-0.9ProPremier Health HospitalComment on above:Performed By: #### CBCA, BMP #### [facility] ([id number]) [address], [address] [place], [place] [address]Ltyyxjczd/100 WBC (Bld)5.1 %NormalSouthern Ohio Medical Center Comment on above:Performed By: #### CBCA, BMP #### [facility] ([id number]) [address], [address] [place], [place] [address]Ckfrmrcwhpb/100 WBC (Bld)84.3 %[facility] Comment on above:Performed By: #### CBCA, BMP #### [facility] ([id number]) [address], [address] [place], [place] [address]Hcdcfhil mean volume (Bld) [Entitic vol]8.3 fLNormal7-12 ProMgadsden regional medical centera Wallace HospitalComment on above:Performed By: #### WILL, BMP #### [facility] ([id number]) [address], [address] [place], [place] [address]Uvmxfckxn (Bld) [#/Vol]111 10*3/fBMmh695-501DjnVmgqkx [place] HospitalComment on above:Performed By: #### WILL, BMP #### [facility] ([id number]) [address], [address] [place] [address]ESW COUNT3.53 X10E12/LLow4.10-5.70[facility] Comment on above:Performed By: #### WILL, BMP #### [facility] ([id number]) [address], [address] [place] [address]QTP (Bld) [#/Vol]6.1 10*3/uLNormal4.0-11.0ProUniversity Hospitals Beachwood Medical CenterComment on above:Performed By: #### WILL, BMP #### [facility] ([id number]) [address], [address] [place] [address]Ydqogwh.ionized (Bld) [Mass/Vol]on 96-81-9017FNYEGKM CALCIUM4.8 mg/dLNormal4.5-5.3PSCCI Hospital LimaComment on above:Performed By: #### 61569-8, 21076-2 #### [facility] ([id number]) [address], [address] [place], [place] [address]Ghrquhfvv Ionized ISE (Bld) [Moles/Vol]on 19-21-4274Fsitkaicx [Moles/Vol]0.51 mmol/LNormal0.45-0.74ProPremier Health HospitalComment on above: Result Comment: NEW REFERENCE RANGEPerformed By: #### 93467-9, 01839-0 #### [facility] ([id number]) [address], [address] [place], [place] [address]PTV AND AUTO DIFFon 14-08-3156JPFEIWRL BASOPHIL0.0 X10E9/LNormal 0.0-0.2ProMedica Wallace HospitalComment on above:Performed By: #### CBCA #### [facility] ([id number]) [address], [address] [place], [place] [address]SZTZLWHJ NEUTROPHIL5.1 X10E9/LNormal1.5-6.6ProOhiohealth Nelsonville Health Centerca Wallace HospitalComment on above:Performed By: #### CBCA #### [facility] ([id number]) [address], [address] [place], [place] [address]Eikhubfrw/100 WBC (Bld)0.5 %NormalSouthern Ohio Medical Center Comment on above:Performed By: #### CBCA #### [facility] ([id number]) [address], [address] [place], [place] [address]Nsksqzsmlwd (Bld) [#/Vol]0.2 10*3/uLNormal0.0-0.4ProUniversity Hospitals Beachwood Medical CenterComment on above:Performed By: #### CBCA #### [facility] ([id number]) [address], [address] [place], [place] [address]Oujyjncetos/100 WBC (Bld)3.2 %NormalSouthern Ohio Medical Center Comment on above:Performed By: #### CBCA #### [facility] ([id number]) [address], [address] [place], [place] [address]Tyresifazsr distribution width (RBC) [Ratio]15.0 %Normal 11.5-15.0ProPremier Health HospitalComment on above:Performed By: #### CBCA #### [facility] ([id number]) [address], [address] [place], [place] [address]Vxtglybuao (Bld) [Volume fraction]36.0 %Nrp23-90IwiLexphu Morse HospitalComment on above:Performed By: #### CBCA #### [facility] ([id number]) [address], [address] [place], [place] [address]Cpsoevqgrk (Bld) [Mass/Vol]12.1 g/dLLow13.0-17.0ProMedica Morse HospitalComment on above:Performed By: #### CBCA #### [facility] ([id number]) [address], [address] [place], [place] [address]Ucceggggehs (Bld) [#/Vol]0.9 10*3/uLLow1.0-3.5ProMedica Morse HospitalComment on above:Performed By: #### CBCA #### [facility] ([id number]) [address], [address] [place], [place] [address]Bxjiwwclxjd/100 WBC (Bld)13.4 %NormalProOhiohealth Nelsonville Health Centerca [facility] Comment on above:Performed By: #### CBCA #### [facility] ([id number]) [address], [address] [place], [place] [address]GSO (RBC) [Entitic mass]33.3 hwYektbt52-93DmyMgsqtw Morse HospitalComment on above:Performed By: #### CBCA #### [facility] ([id number]) [address], [address] [place], [place] [address]VQMB (RBC) [Mass/Vol]33.5 g/eWWjieza66-69UgxVglhtg [facility] HospitalComment on above:Performed By: #### CBCA #### [facility] ([id number]) [address], [address] [place], [place] [address]UEN (RBC) [Entitic vol]100 kDHivzym11-129WbzVcbrlh Morse HospitalComment on above:Performed By: #### CBCA #### [facility] ([id number]) [address], [address] [place], [place] [address]Ytjiliqkn (Bld) [#/Vol]0.2 10*3/uLNormal0-0.9ProPremier Health HospitalComment on above:Performed By: #### CBCA #### [facility] ([id number]) [address], [address] [place], [place] [address]Ihzwhejrz/100 WBC (Bld)3.0 %NormalSouthern Ohio Medical Center Comment on above:Performed By: #### CBCA #### [facility] ([id number]) [address], [address] [place], [place] [address]Pjbihcnsxdl/100 WBC (Bld)79.9 %NormalSouthern Ohio Medical Center Comment on above:Performed By: #### CBCA #### [facility] ([id number]) [address], [address] [place], [place] [address]Rfbkfzup mean volume (Bld) [Entitic vol]8.6 fLNormal7-12 ProMedica Wallace HospitalComment on above:Performed By: #### CBCA #### [facility] ([id number]) [address], [address] [place], [place] [address]Pbxlephrj (Bld) [#/Vol]117 10*3/qXQsn693-931LsaChdoux [place] HospitalComment on above:Performed By: #### CBCA #### [facility] ([id number]) [address], [address] [place], [place] [address]JZC COUNT3.62 X10E12/LLow4.10-5.70ProUniversity Hospitals Beachwood Medical Center Comment on above:Performed By: #### CBCA #### [facility] ([id number]) [address], [address] [place], [place] [address]ZTK (Bld) [#/Vol]6.4 10*3/uLNormal4.0-11.0ProUniversity Hospitals Beachwood Medical CenterComment on above:Performed By: #### CBCA #### [facility] ([id number]) [address], [address] [place], [place] [address]Rlxypfq Glucometer (BldC) [Mass/Vol]on 72-17-7555Yxspktx [Mass/Vol]179 mg/nDYjxf19-45EhcFuxonnUniversity Hospitals Beachwood Medical CenterMagnesium Ionized ISE (Bld) [Moles/Vol]on 63-50-9845Mwavfvjwj [Moles/Vol]0.47 mmol/LNormal0.45-0.74 ProMBlanchard Valley Health System Blanchard Valley HospitalComment on above:Result Comment: NEW REFERENCE RANGE Performed By: #### 01403-2 #### [facility] ([id number]) [address], [address] [place], [place] [address]Gsmtdfr Glucometer (BldC) [Mass/Vol]on 26-66-0618Ucshlex [Mass/Vol]203 mg/bJNksi43-04SepAvfmrrTriHealthEGMENTAL BLOOD PRESSUREon 69-23-1262[place]tu[place], [place] [address] Cardiology Report Signed Patient: CARLO HENDERSON MR#: [id number] : 1935 Acct:[id number] Age/Sex: 88 / M ADM Date: 01/15/24 Loc: CARD Attending Dr: Brisa Enciso M.D. Ordering Physician: Brisa Enciso M.D. Date of Service: 01/15/24 Procedure(s): CA segmental UE or LE REYNA Accession Number(s): [id number] cc: Jose Brewer M.D.; Brisa Enciso M.D. 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 Signed By: 01/15/24 1529 01/15/24 1529 DD/ 1339 TD/TT: Clinical Trial Assistant:TBHRadiology, Radiologist, - 01/15/2024 [place] [address] Cardiology Report Signed Patient: CARLO HENDERSON MR#: [id number] : 1935 Acct:[id number] Age/Sex: 88 / M ADM Date: 01/15/24 Loc: CARD Attending Dr: Brisa Enciso M.D. Ordering Physician: Brisa Enciso M.D. Date of Service: 01/15/24 Procedure(s): CA segmental UE or LE REYNA Accession Number(s): [id number] cc: Jose Brewer M.D.; Brisa Enciso M.D. 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 Signed By: 01/15/24 1529 01/15/24 1529 DD/ 1339 TD/TT: Clinical Trial Assistant: JOSE HealthcareRadiology Study observation (narrative)[facility] HealthSEOUR [facility] BLOOD PRESSUREOrdered By: Radiologist Radiology on 29-50-4559TVKT [employer] Work Phone: [phone] [phone] needs upcoming CEA with Dr. Enciso and he is requesting clearance. Does patient need stress test prior or are you able to clear him? Please advise. Thank you.[facility] HospitalCT ABDOMEN/PELVIS WO CONTon 05-30-8401[place] [address] CT Scan Report Signed Patient: CARLO HENDERSON MR#: [id number] : 1935 Acct:[id number] Age/Sex: 87 / M ADM Date: 11/21/23 Loc: CT Attending Dr: Non-Staff Physician Hugo Ordering Physician: Jorge Sparks M.D. Date of Service: 11/21/23 Procedure(s): CT abdomen pelvis wo con Accession Number(s): [id number] cc: Jose Brewer M.D. [place] [address] Patient Name: CARLO HENDERSON MRN: [id number] date: 1935 Sex: M Assigned Patient Location: CT Current Patient Location: Accession/Order Number: [id number] Exam Date: 11/21/2023 14:57 Report Date: 11/22/2023 [...] 3. Marked atherosclerotic disease. Electronically authenticated by: HOLLIS CROW Date: 11/22/2023 05:21 Dictated By: Hollis Crow M.D. Signed By: 11/22/23523 DD/ 0 TD/TT: Clinical Trial Assistant:TBHRadiology, Radiologist, - 11/22/2023 [place] [address] CT Scan Report Signed Patient: CARLO HENDERSON MR#: [id number] : 1935 Acct:[id number] Age/Sex: 87 / M ADM Date: 11/21/23 Loc: CT Attending Dr: Non-Staff Physician Arias Ordering Physician: Jorge Sparks M.D. Date of Service: 11/21/23 Procedure(s): CT abdomen pelvis wo con Accession Number(s): [id number] cc: Jose Brewer M.D. [address] [address] Patient Name: CARLO HENDERSON MRN: [id number] date: 1935 Sex: M Assigned Patient Location: CT Current Patient Location: Accession/Order Number: [id number] Exam Date: 11/21/2023 14:57 Report Date: 11/22/2023 [...] 3. Marked atherosclerotic disease. Electronically authenticated by: HOLLIS CROW Date: 11/22/2023 05:21 Dictated By: Hollis Crow M.D. Signed By: 11/22/23523 DD/ 0 TD/TT: Clinical Trial Assistant: JOSE HealthcareRadiology Study observation (narrative)JOSE HealthcareCT ABDOMEN/PELVIS WO CONTOrdered By: Radiologist Radiology on 32-91-7103DMYF Healthcare Work Phone: Office Visiton [phone]-up [id number] Carlo Henderson 1935 M Date Provider Department Center 11/03/2023 271-[address], [place] [facility] Family History Problem Relation Age of Onset No Known Problems Mother No Known Problems Father Family Status - Relation Status Age at Mother Father Level of Service:63780 MT OFFICE/OUTPATIENT ESTABLISHED LOW MDM 20 [facility] HospitalPTH INTACTon 66-46-4026PXS, Kjlswd37 pg/mL Elhvdw65-15Bfw [facility] HospitalComment on above:Performed By: #### BMP, BNP #### [facility] [address] [place] [address] Dr. Mary Kay VacaFERRITINon 30-32-7842Ilxjlnxc [Mass/Vol]685.0 ng/mLCritically high26.0-388.0The [facility] HospitalComment on above:Performed By: #### BMP, BNP #### [facility] [address] [place] [address] Dr. Mary Kay VacaHEMOGRAM AND PLATELon 60-41-0461Wvewznrrvf (Bld) [Volume fraction]37.8 %Critically low42.0-54.0The [facility] HospitalComment on above: Performed By: #### RENAL, LIPID #### [facility] [address] [place] [address] Dr. Mary Kay VacaHemoglobin (Bld) [Mass/Vol]12.8 g/dLCritically low14.0-18.0The [facility] HospitalComment on above:Performed By: #### RENAL, LIPID #### [facility] [address] [place] [address] [address] Mary Kay Fernandez (RBC) [Entitic mass]32.5 guQtfkav69.9-34.0The [facility] HospitalComment on above:Performed By: #### RENAL, LIPID #### [facility] [address] [place] [address] Dr. Mary Kay Fernandez (RBC) [Mass/Vol]33.9 g/gIHgsabm34.9-35.2The [facility] HospitalComment on above:Performed By: #### RENAL, LIPID #### [facility] [address] [place] [address] Dr. Mary Kay Fernandez (RBC) [Entitic vol]95.9 fLCritically high80.0-94.0The [facility] HospitalComment on above:Performed By: #### RENAL, LIPID #### [facility] [address] [place] [address] Dr. Mary Kay VacaPLT163 103/qdEnlmnl556-496Rkx [facility] HospitalComment on above: Performed By: #### RENAL, LIPID #### [facility] [address] [place] [address] Dr. Mary Kay VacaRBC3.94 106/ulCritically low4.70-6.10The [facility] HospitalComment on above:Performed By: #### RENAL, LIPID #### [facility] [address] [place] [address] Dr. Mary Kay VacaWBC6.3 103/ulNormal4.0-11.0The [facility] HospitalComment on above: Performed By: #### RENAL, LIPID #### [facility] [address] [place] [address] Dr. Mary Kay Dowd AND TIBCon 02-11-2023% LGEEXFPOGG25.8 %NormalThe [facility] HospitalComment on above:Performed By: #### BMP, BNP #### [facility] [address] [place] [address] Dr. Mary Kay Dowd [Mass/Vol]127.0 ug/rNOfflox90.0-175.0The [facility] Comment on above:Performed By: #### BMP, BNP #### [facility] [address] [place] [address] Dr. Mary Kay VacaTIBC UUVYCJ476.0 ug/mXHlhxss440.0-450.0The [facility] Comment on above:Performed By: #### BMP, BNP #### [facility] [address] [place] [address] Dr. Mary Kay VacaMAGNESIUMon 80-11-0632Sllxiwppk [Mass/Vol]1.7 mg/dLCritically low 1.8-2.4The [facility] HospitalComment on above:Performed By: #### RENAL, LIPID #### [facility] [address] [place] [address] Dr. Mary Kay VacaPHOSPHORUSon 20-26-2976Fggacawwt [Mass/Vol]3.1 mg/dLNormal2.6-4.7 The [facility] HospitalComment on above:Performed By: #### RENAL, LIPID #### [facility] [address] [place] [address] Dr. Mary Kay VacaPROF 14(COMP METB)on 97-13-0702Ufzaaxc [Mass/Vol]3.7 g/dLNormal 3.4-5.0The [facility] HospitalComment on above:Performed By: #### RENAL, LIPID #### [facility] [address] [place] [address] Dr. Mary Kay VacaAlbumin/Globulin [Mass ratio]0.8 {ratio}NormalThe [facility] HospitalComment on above:Performed By: #### RENAL, LIPID #### [facility] [address] [place] [address] Dr. Mary Kay BanegasP [Catalytic activity/Vol]178 U/LCritically kqoy20-229Qcz [facility] HospitalComment on above:Performed By: #### RENAL, LIPID #### [facility] [address] [place] [address] Dr. Mary Kay BanegasT [Catalytic activity/Vol]72 U/LCritically pjrv11-94Obb [facility] HospitalComment on above:Performed By: #### RENAL, LIPID #### [facility] [address] [place] [address] [address] Mary Kay VacaAnion gap [Moles/Vol]16.6 mmol/LNormalThe [facility] Comment on above:Performed By: #### RENAL, LIPID #### [facility] [address] [place] [address] [address] Mary Kay VacaAST [Catalytic activity/Vol]53 U/LCritically ejok06-70Krj [facility] HospitalComment on above:Performed By: #### RENAL, LIPID #### [facility] [address] [place] [address] [address] Mary Kay VacaBilirubin [Mass/Vol]0.5 mg/dLNormal0.2-1.0[facility] Comment on above:Performed By: #### RENAL, LIPID #### [facility] [address] [address] [address] Mary Kay VacaCalcium [Mass/Vol]9.4 mg/dLNormal8.5-10.1The [facility] Comment on above:Performed By: #### RENAL, LIPID #### [facility] [address] [place] [address] [address] Mary Kay VacaChloride [Moles/Vol]102 mmol/HVqwvhr92-036Uah [facility] Comment on above:Performed By: #### RENAL, LIPID #### [facility] [address] [place] [address] [address] Mary Kay VacaCO2 [Moles/Vol]26.6 mmol/EIzzoht18.0-32.0The [facility] Comment on above:Performed By: #### RENAL, LIPID #### [facility] [address] [place] [address] [address] Mary Kay VacaCreatinine [Mass/Vol]1.72 mg/dLCritically high0.70-1.30The [facility] HospitalComment on above:Performed By: #### RENAL, LIPID #### [facility] [address] [place] [address] [address] Muñiz ChangEGFR-AF JJWDKRGP95 mL/min/1.36k7Zhjmuastqy low>=60The [facility] HospitalComment on above:Performed By: #### RENAL, LIPID #### [facility] [address] [place] [address] [address] Mary Kay WhitmoreGFR-NON AF XINWOVAZ57 mL/min/1.97p3Yviqmihxiq low>=60The [facility] HospitalComment on above:Performed By: #### RENAL, LIPID #### [facility] [address] [place] [address] [address] Mary Kay VacaGlobulin (S) [Mass/Vol]4.9 g/dLNormalThe [facility] HospitalComment on above:Performed By: #### RENAL, LIPID #### [facility] [address] [place] [address] [address] Mary Kay VacaGlucose [Mass/Vol]205 mg/dLCritically agqt78-135Agg [facility] HospitalComment on above:Performed By: #### RENAL, LIPID #### [facility] [address] [place] [address] [address] Mary Kay VacaPotassium [Moles/Vol]4.2 mmol/LNormal3.5-5.1The [facility] Comment on above:Performed By: #### RENAL, LIPID #### [facility] [address] [address] [address] Mary Kay VacaProtein [Mass/Vol]8.6 g/dLCritically high6.4-8.2The [facility] HospitalComment on above:Performed By: #### RENAL, LIPID #### [facility] [address] [place] [address] [address] Mary Kay VacaSodium [Moles/Vol]141 mmol/CBcdorw195-089Dmi [facility] Comment on above:Performed By: #### RENAL, LIPID #### [facility] [address] [place] [address] [address] Mary Kay VacaUrea nitrogen [Mass/Vol]36.0 mg/dLCritically high7.0-18.0The [facility] HospitalComment on above:Performed By: #### RENAL, LIPID #### [facility] [address] [place] [address] [address] Mary Kay VacaUrea nitrogen/Creatinine [Mass ratio]20.9 mg/mgNoClinton Memorial HospitalComment on above:Performed By: #### RENAL, LIPID #### [facility] [address] [place] [address] Dr. Mary Kay Bautista 27-80-1384Ecugckxeq Ql (U)NegativeNormalNEGATIVEHolzer Medical Center – JacksonComment on above:Performed By: #### UA #### [facility] [address] [address] [address] Mary Kay VacaClarity (U)CLEARNormalCLEARHolzer Medical Center – JacksonComment on above: Performed By: #### UA #### [facility] [address] [place] [address] [address] Mary Kay Mcdonald (U)LT. YELLOWNormalYELLOWHolzer Medical Center – JacksonComment on above:Performed By: #### UA #### [facility] [address] [place] [address] Dr. Mary Kay VacaGlucose Ql (U)NegativeNormalNEGATIVEHolzer Medical Center – JacksonComment on above:Performed By: #### UA #### [facility] [address] [place] [address] Dr. Mary Kay VacaHemoglobin Ql (U)NegativeNormalNEGBrecksville VA [facility] on above:Performed By: #### UA #### [facility] [address] [place] [address] Dr. Mary Kay VacaKetones Ql (U)NegativeNormalNEGATIVEHolzer Medical Center – JacksonComment on above:Performed By: #### UA #### [facility] [address] [place] [address] Dr. Mary Kay VacaLEUKOCYTESNegativeNormalNEGATIVEHolzer Medical Center – JacksonComment on above:Performed By: #### UA #### [facility] [address] [place] [address] Dr. Mary Kay VacaNitrite Ql (U)NegativeNormalNEGATIVEHolzer Medical Center – JacksonComment on above:Performed By: #### UA #### [facility] [address] [place] [address] Dr. Yilan ChangpH (U)6.0 [pH]Normal5-9The [facility] HospitalComment on above: Performed By: #### UA #### [facility] [address] [place] [address] Dr. Mary Kay VacaSPEC GRAVITY1.341Ioyhek0.005-<=1.025The [facility] HospitalComment on above:Performed By: #### UA #### [facility] [address] [place] [address] Dr. Mary Kay De León PROTEINNegativeNormalNEGATIVE/ TRACEThe [facility] Comment on above:Performed By: #### UA #### [facility] [address] [place] [address] Dr. Mary Kay Mathiasbilinogen Qn (U)0.2 {Ric'U}/dLNormal0.2 - 1.0The [facility] HospitalComment on above:Performed By: #### UA #### [facility] [address] [place] [address] Dr. Mary Kay VacaURIC ACID SERUMon [id number] [Mass/Vol]5.7 mg/dLNormal 3.5-7.2The [facility] HospitalComment on above:Performed By: #### RENAL, LIPID #### [facility] [address] [place] [address] Dr. Mary Kay Mansfield T PROTEIN CREAT RATIOon 98-01-8618UW TOTAL PROTEIN<6.0 Normal<=12.0The [facility] HospitalComment on above:Performed By: #### BMP, BNP #### [facility] [address] [place] [address] Dr. Mary Kay Mansfield CREAT<13.00Critically low20.00-300.00[facility] Comment on above:Performed By: #### BMP, BNP #### [facility] [address] [place] [address] Dr. Mary Kay VacaVITAMIN D 25 OHon 34-58-9319FCB D 25-OH35.9 ng/mLNormalThe [facility] HospitalComment on above:Performed By: #### BMP, BNP #### [facility] [address] [place] [address] Dr. Mary Kay ROBLESSEOhio Valley HospitalComment on above: Result Comment: <20 ng/mL Vit D deficient 20 - <30 ng/mL Vit D insufficient 30 - 100 ng/mL Vit D sufficient >100 ng/mL Potential ToxicityPerformed By: #### BMP, BNP #### [facility] [address] [place] [address] Dr. Mary Kay VacaC-PEPTIDE, SERUMon 48-97-4530E-Peptide, Serum9.0 ng/mLCritically high1.1-4.4The [facility] HospitalComment on above:Result Comment: C-Peptide reference interval is for fasting patients.Performed By: #### BMP, BNP #### [facility] [address] [place] [address] Dr. Mar yKay VacaLIPID PROFILEon 61-86-4597QDNV-HDL RATIO NORMSUpper Valley Medical CenterComment on above:Result Comment: 3.3 - 4.4 LOW RISK 4.4 - 7.1 AVERAGE RISK 7.1 - 11.0 MODERATE RISK >11.0 HIGH RISKPerformed By: #### RENAL, LIPID #### [facility] [address] [place] [address] Dr. Mary Kay Collieresterol [Mass/Vol]174 mg/dLNormal<=200The [facility] Comment on above:Performed By: #### RENAL, LIPID #### [facility] [address] [place] [address] Dr. Mary Kay Collieresterol in HDL [Mass/Vol]61 mg/dLCritically xwnu01-43OkzHolzer Medical Center – JacksonComment on above:Performed By: #### RENAL, LIPID #### [facility] [address] [place] [address] Dr. Mary Kay Collieresterol in LDL [Mass/Vol]87.0 mg/dLSalem City HospitalComment on above:Performed By: #### RENAL, LIPID #### [facility] [address] [place] [address] Dr. Yilan ChangCholesterol.total/Cholesterol in HDL [Mass ratio]2.9 {ratio} NormalAdena Fayette Medical Center on above:Performed By: #### RENAL, LIPID #### [facility] [address] [address] [address] Mary Kay Morales NORMAL> or = 60 mg/dl - LOW CARDIOVASCULAR RISK <40 mg/dl - HIGH CARDIOVASCULAR RISKSalem City HospitalComhavenwyck hospital on above:Performed By: #### RENAL, LIPID #### [facility] [address] [address] [address] Mary Kay Llanos CALC NORMALSEE [facility] God HospitalComhavenwyck hospital on above:Result Comment: <100 mg/dl OPTIMAL 100 - 129 mg/dl NEAR OR ABOVE OPTIMAL 130 - 159 mg/dl BORDERLINE HIGH 160 - 189 mg/dl HIGH >190 mg/dl VERY HIGH Performed By: #### RENAL, LIPID #### [facility] [address] [place] [address] Dr. Mary Kay VacaTriglyceride [Mass/Vol]130 mg/dLNormal<=150[facility] Comment on above:Performed By: #### RENAL, LIPID #### [facility] [address] [address] [address] Mary Kay NixLDL CALC26.0 mg/dLSalem City HospitalComhavenwyck hospital on above: Performed By: #### RENAL, LIPID #### [facility] [address] [place] [address] Dr. Mary Kay HerronALHeather CREAT RATIO RANDOMon 16-70-4002oDRI7.2 mg/LNormal<=30.0 [facility] JacksonComhavenwyck hospital on above:Performed By: #### BMP, BNP #### [facility] [address] [address] [address] Mary Kay Baca CR RATIO RANGESEE [facility] on above:Result Comment: NO MICROALBUMINURIA 0-29 MG/G CLINICAL MICROALBUMINURIA 30-300 MG/G MACROALBUMINURIA >300 MG/GPerformed By: #### BMP, BNP #### [facility] [address] [place] [address] Dr. Mary Kay Mansfield CREAT<13.00Critically low20.00-300.00[facility] Comment on above:Performed By: #### BMP, BNP #### [facility] [address] [address] [address] Mary Kay Guadarrama FUNCTION PANELon 76-19-5518Fwcijoa [Mass/Vol]3.7 g/dLNormal 3.4-5.0[facility] – JacksonComment on above:Performed By: #### RENAL, LIPID #### [facility] [address] [place] [address] Dr. Mary Kay VacaCalcium [Mass/Vol]9.4 mg/dLNormal8.5-10.1The [facility] Comment on above:Performed By: #### RENAL, LIPID #### [facility] [address] [place] [address] Dr. Mary Kay VacaChloride [Moles/Vol]107 mmol/UIttzce88-776QxlHolzer Medical Center – [place] Comment on above:Performed By: #### RENAL, LIPID #### [facility] [address] [place] [address] Dr. Mary Kay VacaCO2 [Moles/Vol]27.0 mmol/TBszuru82.0-32.0[facility] Comment on above:Performed By: #### RENAL, LIPID #### [facility] [address] [place] [address] Dr. Mary Kay VacaCreatinine [Mass/Vol]1.46 mg/dLCritically high0.70-1.30The [facility] HospitalComment on above:Performed By: #### RENAL, LIPID #### [facility] [address] [place] [address] Dr. Muñiz ChangEGFR-AF OKXYNVKR03 mL/min/1.18c9Rmawvtolgj low>=60The [facility] on above:Performed By: #### RENAL, LIPID #### [facility] [address] [place] [address] Dr. Muñiz ChangEGFR-NON AF SQIMXJAF84 mL/min/1.08t7Unlbexwbsd low>=60The [facility] HospitalComment on above:Performed By: #### RENAL, LIPID #### [facility] [address] [address] [address] Mary Kay VacaGlucose [Mass/Vol]163 mg/dLCritically bcfu75-786Coy [facility] HospitalComment on above:Performed By: #### RENAL, LIPID #### [facility] [address] [address] [address] Mayr Kay VacaPhosphate [Mass/Vol]2.6 mg/dLNormal2.6-4.7The [facility] Comment on above:Performed By: #### RENAL, LIPID #### [facility] [address] [place] [address] Dr. Mary Kay VacaPotassium [Moles/Vol]4.0 mmol/LNormal3.5-5.1The [facility] Comment on above:Performed By: #### RENAL, LIPID #### [facility] [address] [place] [address] Dr. Mary Kay VacaSodium [Moles/Vol]145 mmol/VCtbkzo430-980Tdi [facility] Comment on above:Performed By: #### RENAL, LIPID #### [facility] [address] [place] [address] Dr. Mary Kay VacaUrea nitrogen [Mass/Vol]32.0 mg/dLCritically high7.0-18.0The [facility] HospitalComment on above:Performed By: #### RENAL, LIPID #### [facility] [address] [place] [address] Dr. Mary Kay VacaMAGNESIUMon 23-38-0104Abgqtlcyv [Mass/Vol]1.4 mg/dLCritically low 1.8-2.4The [facility] HospitalComment on above:Performed By: #### RENAL, LIPID #### [facility] [address] [place] [address] Dr. Mary Kay VacaPROF CHEM 8 (BAS METB)on 01-10-1836Cpcfq gap [Moles/Vol]13.7 mmol/LNormalThe [facility] HospitalComment on above:Performed By: #### RENAL, LIPID #### [facility] [address] [address] [address] Mary Kay VacaCalcium [Mass/Vol]9.8 mg/dLNormal8.5-10.1The [facility] Comment on above:Performed By: #### RENAL, LIPID #### [facility] [address] [place] [address] Dr. Mary Kay VacaChloride [Moles/Vol]105 mmol/NUgygef24-771Vlh [facility] Comment on above:Performed By: #### RENAL, LIPID #### [facility] [address] [place] [address] Dr. Mary Kay VacaCO2 [Moles/Vol]27.2 mmol/OBzawtj22.0-32.0The [facility] Comment on above:Performed By: #### RENAL, LIPID #### [facility] [address] [place] [address] Dr. Mary Kay VacaCreatinine [Mass/Vol]1.45 mg/dLCritically high0.70-1.30The [facility] HospitalComment on above:Performed By: #### RENAL, LIPID #### [facility] [address] [place] [address] Dr. Muñiz ChangEGFR-AF UOVCDWAV98 mL/min/1.33r8Bsshnkgpkx low>=60The [facility] HospitalComment on above:Performed By: #### RENAL, LIPID #### [facility] [address] [place] [address] Dr. Muñiz ChangEGFR-NON AF RVJNGBRB33 mL/min/1.79b1Xcnareqesq low>=60The [facility] HospitalComment on above:Performed By: #### RENAL, LIPID #### [facility] [address] [place] [address] Dr. Mary Kay VacaGlucose [Mass/Vol]234 mg/dLCritically noqb63-095Hqr [facility] HospitalComment on above:Performed By: #### RENAL, LIPID #### [facility] [address] [place] [address] Dr. Mary Kay VacaPotassium [Moles/Vol]3.9 mmol/LNormal3.5-5.1The [facility] Comment on above:Performed By: #### RENAL, LIPID #### [facility] [address] [address] [address] Mary Kay VacaSodium [Moles/Vol]142 mmol/BHyyybq347-939Ntk [facility] Comment on above:Performed By: #### RENAL, LIPID #### [facility] [address] [address] [address] Mary Kay VacaUrea nitrogen [Mass/Vol]38.0 mg/dLCritically high7.0-18.0The [facility] HospitalComment on above:Performed By: #### RENAL, LIPID #### [facility] [address] [place] [address] Dr. Mary Kay VacaUrea nitrogen/Creatinine [Mass ratio]26.2 mg/mgNormalThe [facility] HospitalComment on above:Performed By: #### RENAL, LIPID #### [facility] [address] [place] [address] Dr. Mary Kay VacaPTH INTACTon 28-64-0675FGG, Wznzda36 pg/mKDmrnxv22-31Cjg [facility] HospitalComment on above:Performed By: #### RENAL, LIPID #### [facility] [address] [place] [address] Dr. Mary Kay VacaFERRITINon 22-20-3289Hyyzdffp [Mass/Vol]703.0 ng/mLCritically high26.0-388.0The [facility] HospitalComment on above:Performed By: #### BMP, BNP #### [facility] [address] [place] [address] Dr. Mary Kay VacaHEMOGRAM AND PLATELon 89-73-8034Tkyvokufvr (Bld) [Volume fraction]37.2 %Critically low42.0-54.0The [facility] HospitalComment on above: Performed By: #### RENAL, LIPID #### [facility] [address] [place] [address] Dr. Mary Kay VacaHemoglobin (Bld) [Mass/Vol]12.6 g/dLCritically low14.0-18.0The [facility] HospitalComment on above:Performed By: #### RENAL, LIPID #### [facility] [address] [address] [address] Mary [facility]acaNEW[facility] (RBC) [Entitic mass]32.7 ljBtlaje31.9-34.0The [facility] HospitalComment on above:Performed By: #### RENAL, LIPID #### [facility] [address] [address] [address] Mary Kay Fernandez (RBC) [Mass/Vol]33.9 g/zZAduiyb22.9-35.2The [facility] HospitalComment on above:Performed By: #### RENAL, LIPID #### [facility] [address] [place] [address] Dr. Mary Kay VacaH[facility] ([facility]BC) [Entitic vol]96.6 fLCritically high80.0-94.0The [facility] HospitalComment on above:Performed By: #### RENAL, LIPID #### [facility] [address] [place] [address] Dr. Mary Kay VacaPLT172 103/ffHrkbij300-749Tio [facility] HospitalComment on above: Performed By: #### RENAL, LIPID #### [facility] [address] [place] [address] Dr. Mary Kay VacaRBC3.85 106/ulCritically low4.70-6.10The [facility] HospitalComment on above:Performed By: #### RENAL, LIPID #### [facility] [address] [place] [address] Dr. Mary Kay VacaWBC6.8 103/ulNormal4.0-11.0The [facility] HospitalComment on above: Performed By: #### RENAL, LIPID #### [facility] [address] [place] [address] Dr. Mary Kay Dowd AND TIBCon 09-17-2022% HYRLKPJDGV55.9 %NormalThe [facility] HospitalComment on above:Performed By: #### BMP, BNP #### [facility] [address] [place] [address] Dr. Mary Kay Dowd [Mass/Vol]121.0 ug/zIKxybna61.0-175.0The [facility] Comment on above:Performed By: #### BMP, BNP #### [facility] [address] [address] [address] Mary Kay Macias AIQJCD966.0 ug/vQSzbjtc915.0-450.0The [facility] Comment on above:Performed By: #### BMP, BNP #### [facility] [address] [address] [address] Mary Kay VacaMAGNESIUMon 56-23-7442Spqetiibl [Mass/Vol]1.6 mg/dLCritically low 1.8-2.4The [facility] HospitalComment on above:Performed By: #### CMP, MG, URIC #### [facility] [address] [place] [address] Dr. Mary Kay Robles 14(COMP METB)on 64-69-4263Sbjnmyk [Mass/Vol]4.0 g/dLNormal 3.4-5.0The [facility] HospitalComment on above:Performed By: #### CMP, MG, URIC #### [facility] [address] [place] [address] Dr. Mary Kay VacaAlbumin/Globulin [Mass ratio]0.9 {ratio}NormalThe [facility] HospitalComment on above:Performed By: #### CMP, MG, URIC #### [facility] [address] [place] [address] Dr. Mary Kay Coates [Catalytic activity/Vol]164 U/LCritically vxmw75-660Hug [facility] HospitalComment on above:Performed By: #### CMP, MG, URIC #### [facility] [address] [place] [address] Dr. Mary Kay Irby [Catalytic activity/Vol]82 U/LCritically pbat66-35Kzm [facility] HospitalComment on above:Performed By: #### CMP, MG, URIC #### [facility] [address] [place] [address] Dr. Mary Kay Ross gap [Moles/Vol]12.7 mmol/LNormalThe [facility] Comment on above:Performed By: #### CMP, MG, URIC #### [facility] [address] [address] [address] Mary Kay VacaAST [Catalytic activity/Vol]61 U/LCritically slhw66-28Axw [facility] HospitalComment on above:Performed By: #### CMP, MG, URIC #### [facility] [address] [address] [address] Mary Kay VacaBilirubin [Mass/Vol]0.5 mg/dLNormal0.2-1.0The [facility] Comment on above:Performed By: #### CMP, MG, URIC #### [facility] [address] [address] [address] Mary Kay VacaCalcium [Mass/Vol]9.7 mg/dLNormal8.5-10.1The [facility] Comment on above:Performed By: #### CMP, MG, URIC #### [facility] [address] [address] [address] Mary Kay VacaChloride [Moles/Vol]100 mmol/QDynxue27-650Kne [facility] Comment on above:Performed By: #### CMP, MG, URIC #### [facility] [address] [address] [address] Mary Kay VacaCO2 [Moles/Vol]30.4 mmol/QDmxunz73.0-32.0The [facility] Comment on above:Performed By: #### CMP, MG, URIC #### [facility] [address] [address] [address] Mary Kay VacaCreatinine [Mass/Vol]1.30 mg/dLNormal0.70-1.30The [facility] HospitalComment on above:Performed By: #### CMP, MG, URIC #### [facility] [address] [address] [address] Muñiz ChangEGFR-AF PANAMANIAN>60Normal>=60The [facility] HospitalComment on above:Performed By: #### CMP, MG, URIC #### [facility] [address] [address] [address] Mary Kay WhitmoreGFR-NON AF NCLXMKEM95 mL/min/1.74b9Evnxajvowv low>=60The [facility] HospitalComment on above:Performed By: #### CMP, MG, URIC #### [facility] [address] [place] [address] Dr. Mary Kay VacaGlobulin (S) [Mass/Vol]4.7 g/dLNoClinton Memorial HospitalComment on above:Performed By: #### CMP, MG, URIC #### [facility] [address] [place] [address] Dr. Mary Kay VacaGlucose [Mass/Vol]193 mg/dLCritically lnri95-577Nui [facility] HospitalComment on above:Performed By: #### CMP, MG, URIC #### [facility] [address] [place] [address] Dr. Mary Kay VacaPotassium [Moles/Vol]4.1 mmol/LNormal3.5-5.1The [facility] Comment on above:Performed By: #### CMP, MG, URIC #### [facility] [address] [place] [address] Dr. Mary Kay VacaProtein [Mass/Vol]8.7 g/dLCritically high6.4-8.2The [facility] HospitalComment on above:Performed By: #### CMP, MG, URIC #### [facility] [address] [place] [address] Dr. Mary Kay VacaSodium [Moles/Vol]139 mmol/GWlqxuv639-642Ckz [facility] Comment on above:Performed By: #### CMP, MG, URIC #### [facility] [address] [place] [address] Dr. Mary Kay VacaUrea nitrogen [Mass/Vol]33.0 mg/dLCritically high7.0-18.0The [facility] HospitalComment on above:Performed By: #### CMP, MG, URIC #### [facility] [address] [place] [address] Dr. Mary Kay VacaUrea nitrogen/Creatinine [Mass ratio]25.4 mg/mgNoClinton Memorial HospitalComment on above:Performed By: #### CMP, MG, URIC #### [facility] [address] [address] [address] Mary Kay DURANon 96-02-0464Hskhmquyi Ql (U)NegativeNormalNEGATIVEHolzer Medical Center – JacksonComment on above:Performed By: #### BMP, BNP #### [facility] [address] [address] [address] Mary Kay VacaClarity (U)CLEARNormalCLEARHolzer Medical Center – JacksonComment on above: Performed By: #### BMP, BNP #### [facility] [address] [address] [address] Mary Kay Mcdonald (U)LT. YELLOWNormalYELLOWHolzer Medical Center – JacksonComment on above:Performed By: #### BMP, BNP #### [facility] [address] [address] [address] Mary Kay VacaGlucose Ql (U)100 mg/dlAbellett memorial hospitalalCleveland Clinic Foundation Comment on above:Performed By: #### BMP, BNP #### [facility] [address] [address] [address] Mary Kay VacaHemoglobin Ql (U)TRACE-LYSEDAbCrystal Clinic Orthopedic Center Comment on above:Performed By: #### BMP, BNP #### [facility] [address] [address] [address] Mary Kay Booones Ql (U)NegativeNormalNEGATIVEHolzer Medical Center – JacksonComment on above:Performed By: #### BMP, BNP #### [facility] [address] [address] [address] Mary Kay VacaLEUKOCYTESNegativeNormalNEGLake County Memorial Hospital - WestComment on above:Performed By: #### BMP, BNP #### [facility] [address] [address] [address] Mary Kay Velásqueztrite Ql (U)NegativeNormalNEGATIVEHolzer Medical Center – JacksonComment on above:Performed By: #### BMP, BNP #### [facility] [address] [address] [address] Mary Kay VacapH (U)7.0 [pH]Normal5-9[facility] – JacksonComment on above: Performed By: #### BMP, BNP #### [facility] [address] [address] [address] Mary Kay VacaSPEC GRAVITY1.479Tviiaf4.005-<=1.025The [facility] HospitalComment on above:Performed By: #### BMP, BNP #### [facility] [address] [place] [address] Dr. Mary Kay De León PROTEINNegativeNormalNEGATIVE/ TRACEThe [facility] Comment on above:Performed By: #### BMP, BNP #### [facility] [address] [place] [address] Dr. Mary Kay Mathiasbilinogen Qn (U)0.2 {Ric'U}/dLNormal0.2 - 1.0The [facility] Hospitalment on above:Performed By: #### BMP, BNP #### [facility] [address] [place] [address] Dr. Mary Kay Torres ACID SERUMon 58-19-5133Kavrk [Mass/Vol]4.8 mg/dLNormal 3.5-7.2The [facility] Hospitalment on above:Performed By: #### CMP, MG, URIC #### [facility] [address] [place] [address] Dr. Mary Kay Mansfield T PROTEIN CREAT RATIOon 38-46-2542Hyrggif (U) [Mass/Vol] 19.9 mg/dLCritically high<=12.0The [facility] HospitalComment on above:Performed By: #### RENAL, LIPID #### [facility] [address] [place] [address] Dr. Mary Kay Amaya PROT CREAT RAT1.31NormalThe [facility] HospitalComment on above: Performed By: #### RENAL, LIPID #### [facility] [address] [place] [address] Dr. Mary Kay Mansfield CREAT15.14 mg/dLCritically low20.00-300.00The [facility] Hospitalment on above:Performed By: #### RENAL, LIPID #### [facility] [address] [place] [address] Dr. Mary Kay Fabian B12 AND FOLATEon 36-65-5416Zqgggcqeb (Vitamin B12) [Mass/Vol] 1181.0 pg/mLCritically npzn950.0-986.0The [facility] HospitalComment on above: Performed By: #### BMP, BNP #### [facility] [address] [place] [address] Dr. Mary Kay VacaFOLATE9.90 ng/mLNormal8.60-58.90The [facility] HospitalComment on above:Performed By: #### BMP, BNP #### [facility] [address] [place] [address] Dr. Mary Kay VacaVITAMIN D 25 OHon 65-38-8504XQA D 25-OH41.7 ng/mLNormalHolzer Medical Center – JacksonComment on above:Performed By: #### CMP, MG, URIC #### [facility] [address] [place] [address] Dr. Mary Kay Fabian D RANGESSEE [address] John of God HospitalComment on above: Result Comment: <20 ng/mL Vit D deficient 20 - <30 ng/mL Vit D insufficient 30 - 100 ng/mL Vit D sufficient >100 ng/mL Potential ToxicityPerformed By: #### CMP, MG, URIC #### [facility] [address] [place] [address] Dr. Mary Kay VacaVC CONSULT FOLLOWUPon [id number] CONSULT FOLLOWUPPatient: CARLO HENDERSON Exam Date: 07/30/2022 : 1935 Gender:M Ordering : DR ALVA GRACE M.D. Admission #: [id number] Family : Order #: [id number] CLICK HERE TO VIEW EXAM RADIOLOGY REPORT [...] by: Alva Grace MD on 07/30/2022 at 14:41[facility] HospitalVC EXT VENOUS LT LIMITEDon [id number] EXT VENOUS LT LIMITEDPatient: CARLO HENDERSON Exam Date: 07/30/2022 : 1935 Gender:M Ordering : DR ALVA GRACE M.D. Admission #: [id number] Family : Order #: [id number] CLICK HERE TO VIEW EXAM RADIOLOGY REPORT [...] by: Alva Grace MD on 07/30/2022 at 14:26[facility] HospitalVC INJ FOAM SCLERO W US MLTIon [id number] INJ FOAM SCLERO W US MLTIPatient: CARLO HENDERSON Exam Date: 07/23/2022 : 1935 Gender:M Ordering : DR ALVA GRACE M.D. Admission #: [id number] Family : Order #: [id number] CLICK HERE TO VIEW EXAM RADIOLOGY REPORT [...] the patient was immediately (more content not included)...NormalThe [facility] HospitalVC CONSULT FOLLOWUPon [id number] CONSULT FOLLOWUPPatient: CARLO HENDERSON Exam Date: 07/09/2022 : 1935 Gender:M Ordering : DR ALVA GRACE M.D. Admission #: [id number] Family : Order #: [id number] CLICK HERE TO VIEW EXAM RADIOLOGY REPORT [...] by: Alva Grace MD on 07/09/2022 at 14:02[facility] HospitalVC VENOUS REFLUX LT LMTon [id number] VENOUS REFLUX LT LMTPatient: CARLO HENDERSON Exam Date: 07/09/2022 : 1935 Gender:M Ordering : DR ALVA GRACE M.D. Admission #: [id number] Family : Order #: [id number] CLICK HERE TO VIEW EXAM RADIOLOGY REPORT [...] visualized in SSV. Compressibility: Normal Flow: Normal Horse Breaker: Dist/med calf 2.4mm with 0s reflux. Mid/med [...] by: Alva Grace MD on 07/09/2022 at 13:38[facility] on 98-43-7135Vdyhsoiloxs peptide B (Bld) [Mass/Vol]1185.0 pg/mLNormal<=1,800.0 The [facility] HospitalComment on above:Performed By: #### BMP, BNP #### [facility] [address] [place] [address] Dr. Mary Kay VacaPROF CHEM 8 (BAS METB)on 12-72-8490Aiaus gap [Moles/Vol]10.9 mmol/LNormalThe [facility] HospitalComment on above:Performed By: #### BMP, BNP #### [facility] [address] [place] [address] Dr. Mary Kay VacaCalcium [Mass/Vol]8.8 mg/dLNormal8.5-10.1The [facility] Comment on above:Performed By: #### BMP, BNP #### [facility] [address] [place] [address] Dr. Mary Kay VacaChloride [Moles/Vol]107 mmol/KBgyloz60-471Trq [facility] Comment on above:Performed By: #### BMP, BNP #### [facility] [address] [place] [address] Dr. Mary Kay VacaCO2 [Moles/Vol]29.0 mmol/CBeqnjl31.0-32.0[facility] Comment on above:Performed By: #### BMP, BNP #### [facility] [address] [place] [address] Dr. Mary Kay VacaCreatinine [Mass/Vol]1.31 mg/dLCritically high0.70-1.30The [facility] HospitalComment on above:Performed By: #### BMP, BNP #### [facility] [address] [place] [address] Dr. Muñiz ChangEGFR-AF PANAMANIAN>60Normal>=60The [facility] HospitalComment on above:Performed By: #### BMP, BNP #### [facility] [address] [place] [address] Dr. Mary Kay WhitmoreGFR-NON AF MVZNUJNA69 mL/min/1.90p7Cfyvsqdrbc low>=60The [facility] HospitalComment on above:Performed By: #### BMP, BNP #### [facility] [address] [address] [address] Mary Kay VacaGlucose [Mass/Vol]121 mg/dLCritically gryu01-857Wxv [facility] HospitalComment on above:Performed By: #### BMP, BNP #### [facility] [address] [address] [address] Mary Kay VacaPotassium [Moles/Vol]3.9 mmol/LNormal3.5-5.1The [facility] Comment on above:Performed By: #### BMP, BNP #### [facility] [address] [address] [address] Mary Kay VacaSodium [Moles/Vol]143 mmol/UDoetqd169-081Ufx [facility] Comment on above:Performed By: #### BMP, BNP #### [facility] [address] [address] [address] Mary Kay VaacUrea nitrogen [Mass/Vol]29.0 mg/dLCritically high7.0-18.0The [facility] HospitalComment on above:Performed By: #### BMP, BNP #### [facility] [address] [address] [address] Mary Kay Xavier nitrogen/Creatinine [Mass ratio]22.1 mg/mgNoClinton Memorial HospitalComment on above:Performed By: #### BMP, BNP #### [facility] [address] [place] [address] Dr. Mary Kay VacaGLYCOHEMOGLOBIN A1Con 40-87-5512WQX RECOMMENDATIONSEE BELOWNormal The [facility] HospitalComhavenwyck hospital on above:Result Comment: ADA RECOMMENDED LIMIT 4.0 - 6.0 ADA THERAPEUTIC TARGET < 7.0 ACTION SUGGESTED > 7.0Performed By: #### BMP, BNP #### [facility] [address] [place] [address] Dr. Mary Kay VacaGlucose [Mass/Vol]120 mg/dLNoClinton Memorial HospitalComhavenwyck hospital on above:Performed By: #### BMP, BNP #### [facility] [address] [address] [address] Mary Kay VacaHbA1c (Bld) [Mass fraction]5.8 %Normal4.5-6.2The [facility] HospitalComment on above:Performed By: #### BMP, BNP #### [facility] [address] [place] [address] Dr. Mary Kay Garcia INTACTon 08-54-6730LRG, Cwexpg97 pg/cXTbyzhe44-27Yza [facility] HospitalComment on above:Performed By: #### BMP, BNP #### [facility] [address] [place] [address] Dr. Mary Kay VacaFERRITINon 85-38-0746Ondqyoxe [Mass/Vol]30.0 ng/mLNormal 26.0-388.0The [facility] HospitalComment on above:Performed By: #### FERR, VITAD, FETIBC #### [facility] [address] [place] [address] Dr. Mary Kay VacaHEMOGRAM AND PLATELon 44-47-9535Gqbgbaeiwc (Bld) [Volume fraction]32.9 %Critically low42.0-54.0The [facility] HospitalComment on above: Performed By: #### BMP, BNP #### [facility] [address] [place] [address] Dr. Mary Kay VacaHemoglobin (Bld) [Mass/Vol]9.9 g/dLCritically low14.0-18.0The [facility] HospitalComment on above:Performed By: #### BMP, BNP #### [facility] [address] [place] [address] Dr. Mary Kay Zepeda (RBC) [Entitic mass]28.7 vhEqsypm73.9-34.0The [facility] HospitalComment on above:Performed By: #### BMP, BNP #### [facility] [address] [place] [address] Dr. Mary Kay Fernandez (RBC) [Mass/Vol]30.1 g/gHHrkkwm74.9-35.2The [facility] HospitalComment on above:Performed By: #### BMP, BNP #### [facility] [address] [place] [address] Dr. Mary Kay Fernandez (RBC) [Entitic vol]95.4 fLCritically high80.0-94.0The [facility] HospitalComment on above:Performed By: #### BMP, BNP #### [facility] [address] [place] [address] Dr. Mary Kay CornejoT247 103/jsTrtzhg280-894Sxf [facility] HospitalComment on above: Performed By: #### BMP, BNP #### [facility] [address] [place] [address] Dr. Mary Kay VacaRBC3.45 106/ulCritically low4.70-6.10The [facility] HospitalComment on above:Performed By: #### BMP, BNP #### [facility] [address] [place] [address] Dr. Mary Kay VacaWBC6.9 103/ulNormal4.0-11.0The [facility] HospitalComment on above: Performed By: #### BMP, BNP #### [facility] [address] [place] [address] Dr. Mary Kay Dowd AND TIBCon 03-25-2022% TBGHFSAQGL27.4 %NormalThe [facility] HospitalComment on above:Performed By: #### RENAL, LIPID #### [facility] [address] [place] [address] Dr. Mary Kay Dowd [Mass/Vol]47.0 ug/dLCritically low65.0-175.0The [facility] HospitalComment on above:Performed By: #### RENAL, LIPID #### [facility] [address] [place] [address] Dr. Mary Kay Macias JECFBO130.0 ug/fBLngact304.0-450.0The [facility] Comment on above:Performed By: #### RENAL, LIPID #### [facility] [address] [place] [address] Dr. Mary Kay Robles 14(COMP METB)on 27-05-2524Uupkqbe [Mass/Vol]3.3 g/dL Critically low3.4-5.0The [facility] HospitalComment on above:Performed By: #### RENAL, LIPID #### [facility] [address] [address] [address] Mary Kay VacaAlbumin/Globulin [Mass ratio]0.8 {ratio}NormalThe [facility] HospitalComment on above:Performed By: #### RENAL, LIPID #### [facility] [address] [address] [address] Mary Kay BanegasP [Catalytic activity/Vol]203 U/LCritically qasy07-413Lcv [facility] HospitalComment on above:Performed By: #### RENAL, LIPID #### [facility] [address] [address] [address] Mary Kay BanegasT [Catalytic activity/Vol]41 U/YNynfmw63-76Jaw [facility] HospitalComment on above:Performed By: #### RENAL, LIPID #### [facility] [address] [address] [address] Mary Kay Shankaron gap [Moles/Vol]13.4 mmol/LNormalThe [facility] Comment on above:Performed By: #### RENAL, LIPID #### [facility] [address] [address] [address] Mary Kay VacaAST [Catalytic activity/Vol]41 U/LCritically donk27-03Gqk [facility] Hospitalment on above:Performed By: #### RENAL, LIPID #### [facility] [address] [address] [address] Mary Kay VacaBilirubin [Mass/Vol]0.4 mg/dLNormal0.2-1.0The [facility] Comment on above:Performed By: #### RENAL, LIPID #### [facility] [address] [address] [address] Mary Kay VacaCalcium [Mass/Vol]9.0 mg/dLNormal8.5-10.1The [facility] Comment on above:Performed By: #### RENAL, LIPID #### [facility] [address] [address] [address] Mary Kay VacaChloride [Moles/Vol]105 mmol/XEhxnpt92-479Ghy [facility] Comment on above:Performed By: #### RENAL, LIPID #### [facility] [address] [address] [address] Mary Kay VacaCO2 [Moles/Vol]24.9 mmol/PCxhlhx47.0-32.0The [facility] Comment on above:Performed By: #### RENAL, LIPID #### [facility] [address] [address] [address] Mary Kay VacaCreatinine [Mass/Vol]0.97 mg/dLNormal0.70-1.30The [facility] HospitalComment on above:Performed By: #### RENAL, LIPID #### [facility] [address] [address] [address] Muñiz ChangEGFR-AF PANAMANIAN>60Normal>=60The [facility] HospitalComment on above:Performed By: #### RENAL, LIPID #### [facility] [address] [address] [address] Muñiz ChangEGFR-NON AF PANAMANIAN>60Normal>=60The [facility] HospitalComment on above:Performed By: #### RENAL, LIPID #### [facility] [address] [address] [address] Mary Kay VacaGlobulin (S) [Mass/Vol]4.1 g/dLNormalThe [facility] HospitalComment on above:Performed By: #### RENAL, LIPID #### [facility] [address] [address] [address] Mary Kay VacaGlucose [Mass/Vol]113 mg/dLCritically qkbx43-524Kns [facility] HospitalComment on above:Performed By: #### RENAL, LIPID #### [facility] [address] [address] [address] Mary Kay VacaPotassium [Moles/Vol]4.3 mmol/LNormal3.5-5.1The [facility] Comment on above:Performed By: #### RENAL, LIPID #### [facility] [address] [address] [address] Mary Kay VacaProtein [Mass/Vol]7.4 g/dLNormal6.4-8.2The [facility] Comment on above:Performed By: #### RENAL, LIPID #### [facility] [address] [address] [address] Mary Kay Valdesum [Moles/Vol]139 mmol/UThevxb925-239Bsa [facility] Comment on above:Performed By: #### RENAL, LIPID #### [facility] [address] [address] [address] Mary Kay Xavier nitrogen [Mass/Vol]21.0 mg/dLCritically high7.0-18.0The [facility] HospitalComment on above:Performed By: #### RENAL, LIPID #### [facility] [address] [address] [address] Mary Kay Xavier nitrogen/Creatinine [Mass ratio]21.6 mg/mgNoalThe [facility] HospitalComment on above:Performed By: #### RENAL, LIPID #### [facility] [address] [address] [address] Mary Kay Bautista 02-27-6088Jpuzzrrzm Ql (U)NegativeNormalNEGATIVEHolzer Medical Center – JacksonComment on above:Performed By: #### BMP, BNP #### [facility] [address] [address] [address] Mary Kay Dudley (U)CLEARNormalCLEARHolzer Medical Center – JacksonComment on above: Performed By: #### BMP, BNP #### [facility] [address] [address] [address] Mary Kay Mcdonald (U)LT. YELLOWNormalYELLOWHolzer Medical Center – JacksonComment on above:Performed By: #### BMP, BNP #### [facility] [address] [address] [address] Mary Kay VacaGlucose Ql (U)NegativeNormalNEGATIVEHolzer Medical Center – JacksonComment on above:Performed By: #### BMP, BNP #### [facility] [address] [address] [address] Mary Kay VacaHemoglobin Ql (U)NegativeNormalNEGLake County Memorial Hospital [facility] West Comment on above:Performed By: #### BMP, BNP #### [facility] [address] [place] [address] Dr. Mary Kay Sunshine Ql (U)NegativeNormalNEGATIVEThe [facility] HospitalComment on above:Performed By: #### BMP, BNP #### [facility] [address] [place] [address] Dr. Mary Kay VacaLEUKOCYTESNegativeNormalNEGATIVEThe [facility] HospitalComment on above:Performed By: #### BMP, BNP #### [facility] [address] [place] [address] Dr. Mary Kay Brown Ql (U)NegativeNormalNEGATIVEThe [facility] HospitalComment on above:Performed By: #### BMP, BNP #### [facility] [address] [place] [address] Dr. Mary Kay VacapH (U)6.5 [pH]Normal5-9The [facility] HospitalComment on above: Performed By: #### BMP, BNP #### [facility] [address] [place] [address] Dr. Mary Kay VacaSPEC GRAVITY1.752Fdbxhr5.005-<=1.025The [facility] HospitalComment on above:Performed By: #### BMP, BNP #### [facility] [address] [place] [address] Dr. Mary Kay De León PROTEINNegativeNormalNEGATIVE/ TRACEThe [facility] Comment on above:Performed By: #### BMP, BNP #### [facility] [address] [place] [address] Dr. Mary Kay VacaUrobilinogen Qn (U)0.2 {Ric'U}/dLNormal0.2 - 1.0The [facility] HospitalComment on above:Performed By: #### BMP, BNP #### [facility] [address] [place] [address] Dr. Mary Kay VacaURIC ACID SERUMon 79-49-2124Tbjkq [Mass/Vol]3.5 mg/dLNormal 3.5-7.2The [facility] HospitalComment on above:Performed By: #### RENAL, LIPID #### [facility] [address] [place], [place] [address] Dr. Mary Kay Mansfield T PROTEIN CREAT RATIOon 17-78-4031Jszsqkj (U) [Mass/Vol] 21.4 mg/dLCritically high<=12.0[facility] Hospitalment on above:Performed By: #### BMP, BNP #### [facility] [address] [place] [address] Dr. Mary Kay Amaya PROT CREAT RAT2.12NoClinton Memorial HospitalComment on above: Performed By: #### BMP, BNP #### [facility] [address] [place] [address] Dr. Mary Kay Mansfield CREAT10.09 mg/dLCritically low20.00-300.00The [facility] HospitalComment on above:Performed By: #### BMP, BNP #### [facility] [address] [place] [address] Dr. Mary Kay VacaVITAMIN D 25 OHon 64-45-7820MCT D 25-OH37.6 ng/mLNormalThe [facility] HospitalComment on above:Performed By: #### FERR, VITAD, FETIBC #### [facility] [address] [place] [address] Dr. Mary Kay Mendoza RANGES[place] BELOWSalem City HospitalComhavenwyck hospital on above: Result Comment: <20 ng/mL Vit D deficient 20 - <30 ng/mL Vit D insufficient 30 - 100 ng/mL Vit D sufficient >100 ng/mL Potential ToxicityPerformed By: #### FERR, VITAD, FETIBC #### [facility] [address] [place] [address] Dr. Mary Kay VacaVC CONSULT FOLLOWUPon 94-41-0210VK CONSULT FOLLOWUPPatient: CARLO HENDERSON Exam Date: 03/12/2022 : 1935 Gender:M Ordering : DR ALVA GRACE M.D. Admission #: [id number] Family : Order #: [id number] CLICK HERE TO VIEW EXAM RADIOLOGY REPORT [...] by: Alva Grace MD on 03/12/2022 at 15:34[facility] HospitalVC EXT VENOUS RT LIMITEDon 58-67-3178LF EXT VENOUS RT LIMITEDPatient: CARLO HENDERSON Exam Date: 03/12/2022 : 1935 Gender:M Ordering : DR ALVA GRACE M.D. Admission #: [id number] Family : Order #: [id number] CLICK HERE TO VIEW EXAM RADIOLOGY REPORT [...] by: Alva Grace MD on 03/12/2022 at 15:19[facility] ECHOCARDIO M/2D COMPLETEon 73-66-8583TPJJBZISAE M/2D COMPLETEPatient: CARLO HENDERSON Exam Date: 03/08/2022 : 1935 Gender:M Ordering : JERICA MUÑIZ Admission #: [id number] Family : Order #: [id number] CLICK HERE TO VIEW EXAM ECHOCARDIOGRAM REPORT [...] Area(A4C): 29.80 cm2 Left Atrium Systolic Volume(A2C): 28049 mm3 Left Atrium Systolic Volume(A4C): 205584 mm3 Mitral Valve MV E to A Ratio: 1.70 Deceleration Casey: 5630 mm/s2 Mitral Valve A-Wave Peak Velocity: 64.20 cm/s Mitral Valve E-Wave Peak Velocity: 108.00 cm/s Right Ventricle RV Internal Diastolic Dimension: 3.61 cm Aorta AO Root Diam: 3.00 cm Aortic Valve Peak Velocity (Antegrade Flow): 187.00 cm/s, 205.00 cm/s AoV Area (Peak Shaheen): 1.14 cm2 AoV Area (VTI): 1.22 cm2 Deceleration Casey: 2340 mm/s2 Pressure Half-Time: 518 ms Peak [...] by: Benny Franklin M.D. on 03/11/2022 at 12:38[facility] HospitalVC INJ FOAM SCLERO W US MLTIon 14-19-1387BK INJ FOAM SCLERO W US MLTI Patient: CARLO HENDERSON Exam Date: 03/07/2022 : 1935 Gender:M Ordering : DR ALVA GRACE M.D. Admission #: [id number] Family : Order #: [id number] CLICK HERE TO VIEW EXAM RADIOLOGY REPORT [...] Varithena(r) 2. Intraoperative ultrasound guidance Physician: Hollis Crow M.D. Anesthesia: None. Indications for Procedure: 85 [...] PERSONNEL: Rashard Jones R.N. Dictated by: Hollis Crow M.D. on 03/07/2022 at 15:53 Approved by: Hollis Crow M.D. on 03/07/2022 at 15:56[facility] HospitalVC CONSULT FOLLOWUPon 90-19-5005DG CONSULT FOLLOWUPPatient: CARLO HENDERSON Exam Date: 03/01/2022 : 1935 Gender:M Ordering : DR ALVA GRACE M.D. Admission #: [id number] Family : Order #: [id number] CLICK HERE TO VIEW EXAM RADIOLOGY REPORT [...] physical exam and consultation Dictated by: Hollis Crow M.D. on 03/01/2022 at 14:41 Approved by: Hollis Crow M.D. on 03/01/2022 at 14:47[facility] HospitalVC EXT VENOUS RT LIMITEDon [id number] EXT VENOUS RT LIMITEDPatient: CARLO HENDERSON Exam Date: 03/01/2022 : 1935 Gender:M Ordering : DR ALVA GRACE M.D. Admission #: [id number] Family : Order #: [id number] CLICK HERE TO VIEW EXAM RADIOLOGY REPORT [...] right great saphenous vein. Dictated by: Hollis Crow M.D. on 03/01/2022 at 14:38 Approved by: Hollis Crow M.D. on 03/01/2022 at 14:41[facility] HospitalCardiovascular Lab Reporton 02-26-5315Spnvmtjwbsqukh Lab Report [facility] Patient Name: Carlo Henderson [facility] D MR #: [id number] Department of Physician: John Peralta M.D. Division of Service Date: 07/28/2020 Cardiology Birthdate: 1935 Adult Cardiovascular Room #: [address] [place] [address] Cardiovascular Laboratory Report CLINICAL PRESENTATION: The patient [...] ultrasound guidance and micropuncture access technique, a 6-Eritrean sheath was placed in the right internal [...] Barnett M.D. Date Trans: 07/29/2020 05:43 Isra/alphonso DN_JN:[id number] cc: Jose Brewer M.D. [address] [facility] [address] Jerica Muñiz, DISPLAY CARVER [address] [address]ZadnaaBooSalem Regional [facility]*SARS-CoV-2 COVID-19 on 70-86-3627DCXH-COVID-19Not DetectedNormalNot DetectedThe [facility] Hospital - CincinnatiComment on above:Order Comment: The Aptima SARS-CoV-2 assay is a nucleic acid amplification test intended for the qualitative detection of RNA from SARS-CoV-2 isolated and purified from nasopharyngeal (CHIEF MEDICAL DIRECTOR),oropharyngeal (OP), nasal swab, sputum, and bronchoalveolar lavage (BAL) specimens from patients with signs and symptoms of infection who are suspected of COVID-19. Results are for the identification of SARS-CoV-2 RNA. The SARS-CoV-2 RNA is generally detectable during the acute phase of infection. The Aptima SARS-CoV-2 Assay on the Maxatawny and Maxatawny Fusion system is intended for use by laboratory personnel specifically instructed and trained in the operation of the Maxatawny and Maxatawny Fusion system. The Aptima SARS-CoV-2 assay is [...] with clinical observations, patient history, and epidemiological information.Performed By: #### [id number] #### [address]ETLINGMOUNTAIN WEST MEDICAL CENTERAmorWingate, [place] [address] CARE FACILITYAmbulatory Clinical Summaryon 42-88-9243Chcodwvbbz Clinical Summary{l6-38-13-6o-sl-2j-32-ua-6d-[id number]-96-9e-6e-ed}CD:[id number] Arms Hospital Vital Signs Date TimeVital SignValuePerforming ZyfsyiuksRkpngoot95-06-7170 11:12-0400Body xawgrc140.6 cmYulyrachid Newton APRN-DISPLAY CARVER Work Phone: [facility]10-14-2025 11:12-0400Body mass index (BMI) [Ratio]29.38 kg/o9Irjwgyfrachid Newton MARINE ENGINE MECHANIC-DISPLAY CARVER Work Phone: [facility]10-14-2025 11:12-0400Body .56 kgYulyrachid Newton APRN-DISPLAY CARVER Work Phone: [facility] HospitalGruvIt Ytkssc56-04-7674 11:12-0400Diastolic blood awlzydks07 mm[Hg]Zari Aman BUSTAMANTE-DISPLAY CARVER Work Phone: [facility]10-14-2025 11:12-0400Heart rate 50 /minYulyrachid Newton APRN-DISPLAY CARVER Work Phone: [facility]10-14-2025 11:12-0400Systolic blood qixtwwoz916 mm[Hg]Zari HUDDLESTONDISPLAY CARVER Work Phone: [facility]09-29-2025 12:53-0400Body pgowoh728.6 Kurt Bustos MD Work Phone: [phone] [place], [place] [address]Mhcqaoijyk54-51-9068 12:53-0400Body mass index (BMI) [Ratio]28.57 kg/y6GdqgkDelia Bustos MD Work Phone: [phone] [place], [place] [address]Tconoqoiwj09-31-5046 12:53-0400Body zlrypi63.29 kgDelia Bustos MD Work Phone: [phone] [place], [place] [address]Nlugmdgbwf99-06-7753 12:53-0400Diastolic blood qqflaguh03 mm[Hg]Delia Bustos MD Work Phone: [phone] [place], [place] [address]Wqzwyduaxf89-72-9923 12:53-0400Heart rate51 /min Delia Bustos MD Work Phone: [phone] [place], [place] [address]Gjrdmsjakm90-64-5557 12:53-0400Respiratory rate16 /minDelia Bustos MD Work Phone: [phone] [place], [place] [address]Fwcwecwddk29-54-4039 12:53-8595DnX3% (BldA) [Mass fraction]97 %Delia Bustos MD Work Phone: [phone] [place], [place] [address]Ecwmknrxij14-56-6643 12:53-0400Systolic blood dljqhyhx304 mm[Hg]Delia Bustos MD Work Phone: [phone] [place], [place] [address]Gtvfynaoid06-51-0911 11:40-0400Body aqdxoi568.64 cmJose Brewer MD Work Phone: [facility]09-23-2025 11:40-0400 Body mass index (BMI) [Ratio]28.7 kg/m2Jose Brewer MD Work Phone: [facility]09-23-2025 11:40-0400 Body mwernoqlhob23.3 [degF]Jose Brewer MD Work Phone: [facility]09-23-2025 11:40-0400 Body .73 kgJose Brewer MD Work Phone: [phone]09-23-2025 11:40-0400 Diastolic blood qdakgznq64 mm[Hg]Jose Brewer MD Work Phone: [phone]09-23-2025 11:40-0400 Heart rate67 /minJose Brewer MD Work Phone: [phone]09-23-2025 11:40-0400 Respiratory rate20 /minJose Brewer MD Work Phone: [phone]09-23-2025 11:40-0400 SaO2% (BldA) [Mass fraction]98 %Jose Brewer MD Work Phone: [phone] [place], [place] [address]109-23-2025 11:40-0400 Systolic blood axjsgmtx236 mm[Hg]Jose Brewer MD Work Phone: [facility]09-16-2025 10:36-0400 Body tsowil451.6 cmZari Newton MARINE ENGINE MECHANIC-DISPLAY CARVER Work Phone: [facility]09-16-2025 10:36-0400Body mass index (BMI) [Ratio]29.54 kg/a8OnreturZari Newton APRN-DISPLAY CARVER Work Phone: [facility]09-16-2025 10:36-0400Body redtnj68.01 kgZari Newton APRN-DISPLAY CARVER Work Phone: [facility]08-19-2025 13:14-0400Body xseplf186.6 cmJose Brewer MD Work Phone: [facility] HealthHbhtulexpo32-79-7169 13:14-0400Body mass index (BMI) [Ratio]30.02 kg/m2Jose Brewer MD Work Phone: [facility] HealthKcxulwzwwe54-45-9664 13:14-0400Body temperature 97.5 [degF]Jose Brewer MD Work Phone: [facility] HealthMsnfbqqgzu91-52-1053 13:14-0400Body qtbuqg46.37 kgJose Brewer MD Work Phone: [facility] HealthUeuijyusdu80-85-2451 13:14-0400Diastolic blood mm[Hg]Jose Brewer MD Work Phone: [facility] HealthQoptaeiexn56-49-2890 13:14-0400Heart rate43 /min Jose Brewer MD Work Phone: [facility] HealthNxnitvfrot09-59-6008 13:14-0400Respiratory rate18 /minJose Brewer MD Work Phone: [facility] HealthYvcikjuvmh70-05-3190 13:14-2263IdI1% (BldA) [Mass fraction]97 %Jose Brewer MD Work Phone: [facility] HealthGpwnkyvveq23-60-5268 13:14-0400Systolic blood scozyvfo598 mm[Hg]Jose Brewer MD Work Phone: [facility] HealthJdvxgysiqb77-32-2105 13:20-0400Body piphdr132.6 Kurt Bustos MD Work Phone: [facility] HealthDdufwgugxe47-64-6878 13:20-0400Body mass index (BMI) [Ratio]29.21 kg/g2CxiotDleia Bustos MD Work Phone: [facility] HealthSjwkdytpbh22-10-1145 13:20-0400Body ajxhnu44.1 kg Delia Bustos MD Work Phone: [facility] HealthUqbuqbwypm71-34-5642 13:20-0400Diastolic blood dqehaiva32 mm[Hg]Delia Bustos MD Work Phone: [facility] HealthDxcsdiqteh47-93-2407 13:20-0400Heart rate80 /min Delia Bustos MD Work Phone: [address] [place], [place] [address]Vsioqzfetb68-11-0063 13:20-0400Respiratory rate18 /minDelia Bustos MD Work Phone: [facility] HealthDjzufgfgwz26-39-0482 13:20-8275AqF8% (BldA) [Mass fraction]95 %Delia Bustos MD Work Phone: [facility] HealthKliwxakqmv35-82-4529 13:20-0400Systolic blood dtfvgayh484 mm[Hg]Delia Bustos MD Work Phone: [facility] HealthDdegnkdsmx90-65-5942 09:12-0400Body bubpwh471.6 cmJose Brewer MD Work Phone: [facility] HealthXkuoztvbtu13-77-1078 09:12-0400Body mass index (BMI) [Ratio]30.67 kg/m2Jose Brewer MD Work Phone: [facility] HealthVwdgplceya34-88-2050 09:12-0400Body temperature 97.5 [degF]Jose Brewer MD Work Phone: [facility] HealthUlizhtryta52-74-9468 09:12-0400Body .18 kgJose Brewer MD Work Phone: [facility] HealthCiyjolnmyx71-85-0308 09:12-0400Diastolic blood qcyglmmt80 mm[Hg]Jose Brewer MD Work Phone: [facility] HealthClwuozlttx04-74-4733 09:12-0400Heart rate82 /min Jose Brewer MD Work Phone: [facility] HealthBirflwiapv05-61-3588 09:12-0400Respiratory rate18 /minJose Brewer MD Work Phone: [facility] HospitalYisbpixfye24-25-1349 09:12-8628EqJ3% (BldA) [Mass fraction]98 %Jose Brewer MD Work Phone: [facility] HospitalWvtgalxtcg73-51-7949 09:12-0400Systolic blood dapwavok078 mm[Hg]Jose Brewer MD Work Phone: [facility] HealthFyhuioesnk48-43-1046 13:17-0500Body betrlx455.6 cmJose Brewer MD Work Phone: [facility] HealthFhwkzbomfd77-29-4581 13:17-0500Body mass index (BMI) [Ratio]29.21 kg/m2Jose Brewer MD Work Phone: [facility] HealthZwxkqgaxjk41-04-4575 13:17-0500Body temperature 97.11 [degF]Jose Brewer MD Work Phone: 1(789)686-[address] [place], [place] [address]Fjjkdfvmwc59-85-1446 13:17-0500Body efkbcr33.1 kg Jose Brewer MD Work Phone: [phone])[address] [place], [place] [address]Rjgwvhezdr42-44-7956 13:17-0500Diastolic blood woydeapw84 mm[Hg]Jose Brewer MD Work Phone: 1(751)296-[address] [place], [place] [address]Panrxdakia32-21-6604 13:17-0500Heart rate77 /min Jose Brewer MD Work Phone: 1(845)3-[address] [place], [place] [address]Qfhqvxfcbq42-38-3967 13:17-0500Respiratory rate18 /minJose Brewer MD Work Phone: [facility] HealthBwevmwtxgy03-24-1797 13:17-8915QiZ0% (BldA) [Mass fraction]99 %Jose Brewer MD Work Phone: 1(017)938-[address] [place], [place] [address]Lfypvgrtxz61-42-0337 13:17-0500Systolic blood gvlskkyn87 mm[Hg]Jose Brewer MD Work Phone: 1(755)8-[address] [place], [place] [address]Udaitcawmu48-02-4873 13:02-0500Body vydmel464.64 [facility] 13:02-0500Body mass index (BMI) [Ratio]29.2 kg/u1WuapeatqoSheltering Arms Hospital02-04-2025 13:02-0500Body nbicurhyvky70.9 [degF][facility]02-04-2025 13:02-0500Body yligub06.32 kgS[facility]02-04-2025 13:02-0500Diastolic blood fdmzorow56 mm[Hg][facility]02-04-2025 13:02-0500 Heart rate61 /[facility]02-04-2025 13:02-0500 Respiratory rate16 /[facility]02-04-2025 13:02-0500 SaO2% (BldA) [Mass fraction]100 %[facility]02-04-2025 13:02-0500Systolic blood hwebbsaq912 mm[Hg][facility] 10-18-2024 13:53-0500Body oexwdh260.6 Kurt Bustos MD Work Phone: 1(654)666-[address] [place], [place] [address]Ctmzgypsdu75-77-4963 13:53-0500Body mass index (BMI) [Ratio]28.57 kg/f3OuucrDelia Bustos MD Work Phone: [facility] HealthZmsiycfzga54-07-2853 13:53-0500Body ddlspu24.29 kgDelia Bustos MD Work Phone: 1(290)338-[address] [place], [place] [address]Wjibsqeiwo08-60-5316 13:53-0500Diastolic blood mm[Hg]Delia Bustos MD Work Phone: [facility] HealthZhoerutbes00-70-0056 13:53-0500Heart rate82 /min Delia Bustos MD Work Phone: [facility] HealthIxpjevzxph09-91-4186 13:53-0500Respiratory rate18 /minDelia Bustos MD Work Phone: 1(768)151-[address] [place], [place] [address]Vmwnfsvsno06-13-6548 13:53-0290MrS1% (BldA) [Mass fraction]96 %Delia Bustos MD Work Phone: [facility] HealthBtsetuyykt56-91-5386 13:53-0500Systolic blood mm[Hg]Delia Bustos MD Work Phone: [facility] HealthOylyimvceb73-74-8016 13:42-0500Body vphptu726.6 Akanksha Benz MD Work Phone: [facility] HealthRdvezhfpdl23-92-9607 13:42-0500Body mass index (BMI) [Ratio]29.54 kg/r8FvfjefChanelle Benz MD Work Phone: [facility] HealthCkkvvsbeoe20-56-6840 13:42-0500Body ufhdwx22.01 kgChanelle Benz MD Work Phone: [facility] HealthVakuwpuobm81-81-1015 13:42-0500Diastolic blood notokyya25 mm[Hg]Chanelle Benz MD Work Phone: [facility] HealthIzuthefgrv11-40-8546 13:42-0500Heart rate80 /min Chanelle Benz MD Work Phone: [facility] HealthKampusuuzl22-30-4233 13:42-0500Systolic blood cdpnyonp38 mm[Hg]Chanelle Benz MD Work Phone: [facility] HealthUjzjzojvum05-46-6129 11:32-0500Body .6 cmJose Brewer MD Work Phone: [facility] HealthYvemtabvzq02-81-7133 11:32-0500Body mass index (BMI) [Ratio]29.38 kg/m2Jose Brewer MD Work Phone: [facility] HealthNjkdvozisy66-27-5680 11:32-0500Body temperature 96.21 [degF]Jose Brewer MD Work Phone: [facility] HealthBymwrhnlkh98-11-0272 11:32-0500Body vnnxvi96.56 kgJose Brewer MD Work Phone: [facility] HealthGaiovrmqmg81-44-7625 11:32-0500Diastolic blood bgmbotxr28 mm[Hg]Jose Brewer MD Work Phone: [facility] HealthFvvixfgclg27-09-5735 11:32-0500Heart rate84 /min Jose Brewer MD Work Phone: [place] [address]Ayireicfzo09-01-4001 11:32-0500Respiratory rate20 /minJose Brewer MD Work Phone: [facility] HealthWqpmuvbjcz64-03-7076 11:32-8861JsA6% (BldA) [Mass fraction]90 %Jose Brewer MD Work Phone: [facility] HealthJbxbngslcm35-40-8529 11:32-0500Systolic blood qcvuibla110 mm[Hg]Jose Brewer MD Work Phone: [facility] HealthEviudavirr52-67-1355 10:41-0400Body zucbzw968.64 cmS[facility]10-03-2024 10:41-0400Body mass index (BMI) [Ratio]28.7 kg/x7WthdhuhbzSheltering Arms Hospital10-03-2024 10:41-0400Body ifuftf43.73 kgS[facility]tering [facility] Hospital10-03-2024 10:41-0400Diastolic blood iwkevzip18 mm[Hg][facility]10-03-2024 10:41-0400 Heart rate94 /[facility]10-03-2024 10:41-0400Systolic blood bzfkszwy00 mm[Hg][facility]08-20-2024 13:09-0400 Body .64 cmS[facility]08-20-2024 13:09-0400Body mass index (BMI) [Ratio]29.9 kg/y6ObyfnefuuSheltering Arms Hospital08-20-2024 13:09-0400Body ikfkhvulwnr67.5 [degF][facility]08-20-2024 13:09-0400Body .02 kgS[facility]08-20-2024 13:09-0400Diastolic blood bomqwgxb83 mm[Hg][facility] 05-04-2024 13:09-0400Heart rate66 /[facility] 05-04-2024 13:09-0400Respiratory rate18 /[facility] 05-04-2024 13:09-3971VlP2% (BldA) [Mass fraction]98 %[facility]08-20-2024 13:09-0400Systolic blood bkmsvfre277 mm[Hg][facility]06-27-2024 10:33-0400Diastolic blood ydpcrxtk98 mm[Hg]Brisa Enciso MD Work Phone: [facility]06-27-2024 10:33-0400Systolic blood dbabowpr565 mm[Hg]Brisa Enciso MD Work Phone: 1(690)[facility]06-27-2024 10:29-0Body mnpdro864.6 cmBrisa Enciso MD Work Phone: 1(874)[facility]06-27-2024 10:290400Body mass index (BMI) [Ratio]29.05 kg/e7FkiecyxBrisa Enciso MD Work Phone: 1(517)[facility]06-27-2024 10:29Body jyyoai32.65 kgBrisa Enciso MD Work Phone: 1(225)[facility]06-27-2024 10:29Heart rate 45 /minBrisa Enciso MD Work Phone: 1(535)[facility]06-27-2024 10:296917RzB7% (BldA) [Mass fraction]94 %Brisa Enciso MD Work Phone: 1(635)[facility]05-09-2024 11:32-0400Diastolic blood cbzmcius13 mm[Hg]Brisa Enciso MD Work Phone: 1(256)[facility]05-09-2024 11:32-0400Heart rate 78 /minMoluna Enciso MD Work Phone: 1(778)[facility]05-09-2024 11:32-0400Systolic blood snguthzh292 mm[Hg]Brisa Enciso MD Work Phone: 1(600)[facility]05-09-2024 11:31-0400Body ipzygw981.1 cmBrisa Enciso MD Work Phone: 1(652)[facility]05-09-2024 11:31-0400Body mass index (BMI) [Ratio]31.32 kg/w8CkvmmknBrisa Enciso MD Work Phone: 1(704)[facility]05-09-2024 11:31-0400Body hhoflq50.37 kgBrisa Enciso MD Work Phone: 1(419)[facility]05-08-2024 11:59-0400Body khewmh136.[address]05-08-2024 11:59-0400Body mass index (BMI) [Ratio]29.95 kg/h3Ewenr[address]05-08-2024 11:59-0400Body xyibeb32.[address]04-25-2024 12:55-0400Body height 165.1 cmBrisa Enciso MD Work Phone: 1(070)[facility]04-25-2024 12:55-0400Body mass index (BMI) [Ratio]30.79 kg/p7FdfmyvtBrisa Enciso MD Work Phone: 1(599)[facility]04-25-2024 12:55-0400Body alkkxn14.92 kgBrisa Enciso MD Work Phone: 1(209)[facility]04-25-2024 12:55-0400Diastolic blood evrvvynv43 mm[Hg]Brisa Enciso MD Work Phone: 1(166)[facility]04-25-2024 12:55-0400Heart rate 88 /minBrisa Enciso MD Work Phone: 1(927)[facility]04-25-2024 12:55-0400Systolic blood uyjclopb311 mm[Hg]Brisa Enciso MD Work Phone: 1(754)[facility]04-11-2024 10:34-0400Body bxjqiw223 cmBrisa Enciso MD Work Phone: 1(504)[facility]04-11-2024 10:34-0400Body mass index (BMI) [Ratio]30.77 kg/s3DhilpwwBrisa Enciso MD Work Phone: 1(414)[facility]04-11-2024 10:34-0400Body zuwaku10.82 kgBrisa Enciso MD Work Phone: 1(116)[facility]04-11-2024 10:34-0400Diastolic blood czdisisg87 mm[Hg]Brisa Enciso MD Work Phone: [facility]04-11-2024 10:34-0400Systolic blood npwrmbeu574 mm[Hg]Brisa Enciso MD Work Phone: [phone]02-15-2024 14:15-0500Body nsqgic798.6 cmJose Brewer MD Work Phone: [facility] HealthXizkdtjytt26-44-8679 14:15-0500Body mass index (BMI) [Ratio]30.99 kg/m2Jose Brewer MD Work Phone: [facility] HealthJmdvulnvus73-07-3715 14:15-0500Body temperature 96.3 [degF]Jose Brewer MD Work Phone: [facility] HealthPudbskrqzh25-48-9004 14:15-0500Body wynfix05.09 kgJose Brewer MD Work Phone: [facility] HealthWwgmnxmweu95-79-2236 14:15-0500Diastolic blood jzksopyg36 mm[Hg]Jose Brewer MD Work Phone: [facility] HealthUdmkwyxmrn39-46-8012 14:15-0500Heart rate90 /min Jose Brewer MD Work Phone: [facility] HealthYflfroiynv12-23-7922 14:15-6509OtK6% (BldA) [Mass fraction]96 %Jose Brewer MD Work Phone: [facility] HealthOhypakklnq68-83-3423 14:15-0500Systolic blood vhfnhrti218 mm[Hg]Jose Brewer MD Work Phone: [facility] HealthFahvqlindd96-60-5002 14:00-0400Body gtxipx461.64 Selam Huizar Other [employer] Other 10-26-2023 14:00-0400Body mass index (BMI) [Ratio] 30.18 kg/m2Kaur [facility] [employer] Other 10-26-2023 14:00-0400Body gmgestmphcx24.8 [degF]Aziz Ildas Other [place] [employer] Other 10-26-2023 14:00-0400Body kqybbu60.82 kgAzashley Gonsaless Other [place] [employer] Other 10-26-2023 14:00-0400Diastolic blood mm[Hg] Aziz Ildas Other [place] [employer] Other 10-26-2023 14:00-0400Respiratory rate18 /minAzashley Bakselenes Other [place] [employer] Other 10-26-2023 14:00-3800FbQ4% (BldA) [Mass fraction]93 % Azashley Gonsaless Other [place] [employer] Other 10-26-2023 14:00-0400Systolic blood abeobsgs579 mm[Hg] Aziz Bakselenes Other [employer] Other 06-23-2023 11:40-0400Body hlzusd093.64 cmAzitiffany Huizar Other [place] [employer] Other 06-23-2023 11:40-0400Body mass index (BMI) [Ratio] 31.44 kg/m2Aziz Edgarhous Other [employer] Other 06-23-2023 11:40-0400Body ivsmffzhwwc03 [degF]Aziz Ildas Other [employer] Other 06-23-2023 11:40-0400Body .36 kgAziz Bakhous Other [employer] Other 06-23-2023 11:40-0400Diastolic blood szecolhv53 mm[Hg] Azashley Gonsaless Other [employer] Other 06-23-2023 11:40-0400Respiratory rate18 /minKaur Gonsaless Other [employer] Other 06-23-2023 11:40-9002BmL7% (BldA) [Mass fraction]96 % Kaur Gonsaless Other [employer] Other 06-23-2023 11:40-0400Systolic blood xohdcsxz764 mm[Hg] Azashley Gonsaless Other [employer] Other 01-11-2023 14:40-0500Body .64 cmAzitiffany Huizar Other [employer] Other 01-11-2023 14:40-0500Body mass index (BMI) [Ratio] 29.05 kg/m2Kaur Gonsaless Other [employer] Other 01-11-2023 14:40-0500Body dlyqgnvzmxw58.7 [degF]Kaur Gonsaless Other [employer] Other 01-11-2023 14:40-0500Body oxxitp32.65 kgAzashley Gonsaless Other [employer] Other 01-11-2023 14:40-0500Diastolic blood qijzxtvw21 mm[Hg] Azashley Gonsaless Other [facility] [employer] Other 01-11-2023 14:40-0500Respiratory rate18 /minKaur Huizar Other [facility] [employer] Other 01-11-2023 14:40-5167LkY3% (BldA) [Mass fraction]96 % Kaur Huizar Other [place] [employer] Other 01-11-2023 14:40-0500Systolic blood nbwvvfwe953 mm[Hg] Kaur Huizar Other [place] [employer] Other 08-10-2022 14:32-0400Body luakewvlkur21.7 [degF]MD Kaur Huizar Work Phone: 4(516)602-[address] [place], [place] 1891308-10-2022 14:32-0400 Diastolic blood mm[Hg]MD Kaur Huizar Work Phone: 1(752)496-[address] [place], [place] 1891308-10-2022 14:32-0400 Heart rate66 /minMD Kaur Huizar Work Phone: [address] [place], [place] [address]65[address]08-10-2022 14:32-0400 Systolic blood orynlvzw022 mm[Hg]MD Kaur Huizar Work Phone: 1(445)075-[address] [place], [place] 1891308-10-2022 13:20-0400 Respiratory rate16 /minMD Kaur Huizar Work Phone: 1(717)402-[address] [place], [place] 1891308-10-2022 13:20-0400 SaO2% (BldA) [Mass fraction]97 %MD Kaur Huizar Work Phone: 8(069)097-[address] [place], [place] 1891307-19-2022 12:40-0400 Body hixpgl692.64 Selam Huizar Other [place] [employer] Other 07-19-2022 12:40-0400Body mass index (BMI) [Ratio] 28.08 kg/m2Kaur Huizar Other [employer] Other 07-19-2022 12:40-0400Body ftnzbzsnfmu24.6 [degF]Kaur Huizar Other [employer] Other 07-19-2022 12:40-0400Body .93 kgKaur Huizar Other [employer] Other 07-19-2022 12:40-0400Diastolic blood tpzbysqb07 mm[Hg] Kaur Huizar Other [employer] Other 07-19-2022 12:40-0400Respiratory rate18 /minKaur Huizar Other [employer] Other 07-19-2022 12:40-6941XsC5% (BldA) [Mass fraction]96 % Kaur Huizar Other [employer] Other 07-19-2022 12:40-0400Systolic blood mm[Hg] Kaur Huizar Other [employer] Other 05-10-2022 12:20-0400Body goabfj089.64 cmAzitiffany Huizar Other [employer] Other 05-10-2022 12:20-0400Body mass index (BMI) [Ratio] 28.08 kg/m2Kaur Gonsaless Other [employer] Other 05-10-2022 12:20-0400Body evpmnwnedha19.1 [degF][facility]aur [facility] Other [facility] [employer] Other 05-10-2022 12:20-0400Body tisosz79.93 kgKaur Huizar Other [place] [employer] Other 05-10-2022 12:20-0400Diastolic blood xvomjcyk92 mm[Hg] Kaur Huizar Other [facility] [employer] Other 05-10-2022 12:20-0400Respiratory rate20 /minKaur Huizar Other [place] [employer] Other 05-10-2022 12:20-4838SiG7% (BldA) [Mass fraction]97 % Kaur Huizra Other [facility] [employer] Other 05-10-2022 12:20-0400Systolic blood mm[Hg] Kaur Huizar Other [place] [employer] Other Encounters Encounter DateEncounter TypeCare ProviderFacilityStart: 06-28-2025 End: 51-26-1789Syqbau follow up visit related to original Chin Newton [employer] Work Phone: [facility] Physicians General SurgeryComment on above: Status post laparoscopic appendectomy (Primary Dx)Start: 06-28-2025 End: 19-71-5522uyyvdteiwqHNQWPGR A CARR[facility]LLPro[facility] Start: 06-13-2025 End: 29-47-0713Bmngrcflorian Bustos MD Work Phone: [facility]ocrinologyStart: 06-13-2025 End: 50-66-5546Tmrhlsflorain Bustos MD Work Phone: noms [facility] EndocrinologyStart: 06-13-2025 End: 21-58-1348Roenaf outpatient visit 25 minutesDelia Bustos MD Work Phone: noms Jessica EndocrinologyComment on above:Type 2 diabetes mellitus with hyperglycemia, without long-term current use of insulin (HCC) (Primary Dx); Vitamin D deficiency; Primary hypertension ; Hyperlipemia, mixed ; Encounter for dietary consultation; Stage 3b chronic kidney disease ([facility]-HCC)Start: 06-13-2025 End: 01-64-9597amfmafyqgsHKDCU F SABBAGHNot AvailableStart: 06-07-2025 End: 62-30-1803xlrovmdtxhEnfd Naderer MD Work Phone: [facility] Work Phone: Start: 06-07-2025 End: 23-35-0945Rgaotud encounter procedureJose Brewer MD-[facility] [place] Work Phone: Start: 21-82-2727cirhnxqfagJJFFNUFLifeCare Hospitals of [facility] HospitalStart: 05-31-2025 End: 55-25-3343Ozeyhe follow up visit related to original Chin Newton [employer] Work Phone: [facility] General SurgeryComment on above: Status post laparoscopic appendectomy (Primary Dx); Diarrhea, unspecified typeStart: 05-31-2025 End: 75-79-9252ckaamjszywNAIYNOHFerry County Memorial Hospital [facility] Start: 89-65-9980Ene-patient / Non-visitDelia Bustos MD-[facility] Work Phone: Start: 05-11-2025 End: 38-03-6359bkjjnjpkafBIFL NADERESt. Joseph's [facility] HospitalStart: 05-03-2025 End: 78-14-8384Lojqfiflorian Brewer MD Work Phone: [facility] FMStart: 05-03-2025 End: 15-50-7345Tntfhdroslyn Brewer MD Work Phone: NOMS [facility] FMStart: 05-03-2025 End: 22-00-7688gwgfdeupuwOURL NADERERNot AvailableStart: 05-03-2025 End: 47-30-7729Leopir outpatient visit 25 minutesJose Brewer MD Work Phone: noMS [facility] FMComment on above:Type 2 diabetes mellitus with microalbuminuria, without long-term current use of insulin ([facility]) (Primary Dx); Benign essential hypertension ; Chronic heart failure with preserved ejection fraction (HFpEF) ([facility]); Chronic obstructive pulmonary disease, unspecified COPD type ([facility]); Gastroesophageal reflux disease without esophagitis; Primary osteoarthritis involving multiple jointsStart: 02-14-2025 End: 69-63-6605Hsmlparoslyn Bustos MD Work Phone: noms ENDOCRINOLOGYStart: 02-14-2025 End: 54-84-8618Ocaadoroslyn Bustos MD Work Phone: noms ENDOCRINOLOGYStart: 02-14-2025 End: 01-13-5765Ilpjbj outpatient visit 25 minutesDelia Bustos MD Work Phone: noms ENDOCRINOLOGYComment on above:Type 2 diabetes mellitus with hyperglycemia, without long-term current use of insulin (CMS/HCC) (Primary Dx); Vitamin D deficiency; Primary hypertension (CMS/HCC); Hyperlipemia, mixed (CMS/HCC); Encounter for dietary consultation; Stage 3b chronic kidney disease (HCC) (CMS/HCC); Type 2 diabetes mellitus with hyperglycemia, with long-term current use of insulin (CMS/HCC)Start: 02-14-2025 End: 30-30-2332wbeorciqckECRPUKayode Huntley AvailableStart: 01-19-2025 End: 10-06-0890Feswzcroslyn Brewer MD Work Phone: noms [facility] FMStart: 01-19-2025 End: 33-29-8884Ygajuh Yakov Brewer MD Work Phone: noms [facility] FMStart: 01-19-2025 End: 05-68-8295Tuaptr outpatient visit 15 minutesJose Brewer MD Work Phone: noms [facility] FMComment on above:Clostridium difficile colitis (Primary Dx); Type 2 diabetes mellitus with microalbuminuria, without long-term current use of insulin (CMS/HCC)Start: 01-19-2025 End: 74-38-6737whxyrlqqeaACQF NADERERNot AvailableStart: 01-14-2025 End: 81-42-2818Thiykyblw department patient visitUniversity Hospitals Portage Medical Centertart: 11-02-2024 End: 79-39-7870Vpkldv Yakov Brewer MD Work Phone: noms [facility] FMStart: 11-02-2024 End: 77-37-8970Ddwlvm Yakov Brewer MD Work Phone: noms [facility] FMStart: 11-02-2024 End: 35-00-5912wuzlsvagogTRQX NADERERNot AvailableStart: 11-02-2024 End: 46-22-8103Btzpdv outpatient visit 25 minutesJose Brewer MD Work Phone: noms [facility] FMComment on above:Type 2 diabetes mellitus with microalbuminuria, without long-term current use of insulin (CMS/HCC) ( Primary Dx); Benign essential hypertension (CMS/HCC); Chronic heart failure with preserved ejection fraction (HFpEF) (CMS/HCC); Primary osteoarthritis of shoulders, bilateral; Gastroesophageal reflux disease without esophagitis; Type 2 diabetes mellitus with hyperglycemia, with long-term current use of insulin (CMS/HCC); Other cirrhosis of liver (CMS/HCC); Chronic obstructive pulmonary disease, unspecified COPD type (CMS/HCC)Start: 10-19-2024 End: 17-83-2259yimmuurdmpLzwiorretMercy Memorial Hospital Work Phone: Start: 10-19-2024 End: 39-86-3449Agbfrvb encounter procedureEcu [facility] [place] Work Phone: Start: 10-18-2024 End: 59-00-1403Xlrhwy flowsXochitl Bustos MD Work Phone: noms ENDOCRINOLOGYStart: 10-18-2024 End: 62-35-0136Maqdzz flowsXochitl Bustos MD Work Phone: noms ENDOCRINOLOGYStart: 10-18-2024 End: 58-48-3127Trkect outpatient visit 25 minutesDelia Bustos MD Work Phone: noms ENDOCRINOLOGYComment on above:Type 2 diabetes mellitus with hyperglycemia, without long-term current use of insulin (CMS/HCC) (Primary Dx); Vitamin D deficiency; Primary hypertension (CMS/HCC); Hyperlipemia, mixed (CMS/HCC); Encounter for dietary consultation; Stage 3b chronic kidney disease (HCC) (CMS/HCC)Start: 10-18-2024 End: 19-73-3896dtqpjccxtuVVNMV F SABBAGHNot AvailableStart: 10-11-2024 End: 01-51-1620Ndugwzylq Result EncounterGeneric External Data ProviderNOMS External Department UnsolicitedStart: 10-11-2024 End: 76-96-2164Nkqzsyoni Result EncounterGeneric External Data ProviderNOMS External Department UnsolicitedStart: 48-84-0110Mba-patient / [facility] Work Phone: Start: 09-13-2024 End: 04-17-2158EqxgdlRjwt Aichholz CHIEF MEDICAL DIRECTOR Work Phone: [facility] FMComment on above:Type 2 diabetes mellitus with microalbuminuria, without long-term current use of insulin (CMS/HCC); Type 2 diabetes mellitus with hyperglycemia, without long-term current use of insulin (CMS/HCC)Start: 09-06-2024 End: 53-45-6679cunvsbqpliYCVA [facility] Hospitaltart: 08-25-2024 End: 55-97-2100Tviybf flowsheetChanelle Benz MD Work Phone: N[facility] CI ENTStart: 08-25-2024 End: 09-32-6184Ikqfzc Haris Benz MD Work Phone: noMS CI ENTStart: 08-25-2024 End: 84-11-5571Ffodnkf encounter procedureChanelle Benz MD Work Phone: N[facility] CI ENTComment on above:Left ear impacted cerumen Start: 08-25-2024 End: 43-40-1376gsycrytsiyBMGLIL H TIMMISNot AvailableStart: 08-20-2024 End: 72-96-2106Troazs Yakov Brewer MD Work Phone: noms CWM FMStart: 08-20-2024 End: 00-99-6245Ibhnbvflorian Brewer MD Work Phone: NOYM CWM FMStart: 08-20-2024 End: 34-98-4307Ytjavy outpatient visit 15 minutesJose Brewer MD Work Phone: noms CWM FMComment on above: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 (Primary Dx); Type 2 diabetes mellitus with diabetic chronic kidney disease (CMS/HCC); Chronic kidney disease, stage 3b (HCC) (CMS/HCC)Start: 08-20-2024 End: 23-09-9655ugoucxovmqHWWU NADERERNot AvailableStart: 07-29-2024 End: 81-91-7786CaxipaRjkuiaJanet Aguero APRN-DISPLAY CARVER Work Phone: [facility] Internal MedicineStart: 07-16-2024 End: 10-06-6967IsogjwAurpnJose Bustos MD Work Phone: [facility] ENDOCRINOLOGYComment on above:Type 2 diabetes mellitus with hyperglycemia, with long-term current use of insulin (CMS/HCC) (Primary Dx)Start: 07-02-2024 End: 86-62-8979Izzuggj encounter procedureMD Jose Huiwale Work Phone: [facility]-Ultrasound Main [place] Work Phone: Start: 07-02-2024 End: 54-96-1778tuigzupzycZL Marc Naderer Work Phone: [facility] Work Phone: Start: 06-24-2024 End: 36-97-5899Oognnqj encounter procedureMD Jose Hiuwale Work Phone: [facility]-Digestive Health Work Phone: Start: 06-24-2024 End: 33-12-1067yobsgqvgamPA Jose Huiwale Work Phone: [facility] Work Phone: Start: 06-17-2024 End: 40-24-2595Ikobgbe encounter procedure Jose Brewer Work Phone: [facility]-Lab Main [place] Work Phone: Start: 06-17-2024 End: 12-73-9606kgezwixrtoVU Jose Brewer Work Phone: [facility] Work Phone: Start: 06-17-2024 End: 57-43-1576lvxzgjxfopOawgbgzltLima Memorial Hospital Center Work Phone: Start: 06-17-2024 End: 52-37-6765Scduglj encounter procedureFirhenrico [facility] Gastroenterology Work Phone: Start: 05-27-2024 End: 11-26-3442Jtgsldipe Result EncounterGeneric External Data ProviderNOMS External Department UnsolicitedStart: 05-27-2024 End: 04-88-5176Lailtigkc Result EncounterGeneric External Data ProviderNOMS External Department UnsolicitedStart: 05-04-2024 End: 01-58-4295afhxxsgyzcIgjlzgjpvLima Memorial Hospital Center Work Phone: Start: 05-04-2024 End: 55-76-5147Epnvcco encounter procedureNoemi Physician Group-[facility] Nephrology [place] Work Phone: Start: 93-47-6336Dco-patient / Non-visitNoemi Physician Group-[facility] Work Phone: Start: 03-22-2024 End: 40-53-8303LufgnsHrimmn A Mullins MARINE ENGINE MECHANIC-DISPLAY CARVER Work Phone: [facility] Internal MedicineStart: 03-19-2024 End: 54-83-9043BbwgwkEcqboa A Mullins MARINE ENGINE MECHANIC-DISPLAY CARVER Work Phone: [facility] Internal MedicineStart: 03-11-2024 End: 31-85-0707Wmxzvu follow up visit related to original Eliud Enciso MD Work Phone: [facility] Comment on above:History of CEA (carotid endarterectomy) (Primary Dx); Carotid stenosis, rightStart: 18-43-8853Dvlhcszsvi and management of inpatient BRISA ENCISOProMedica Wallace HospitalStart: 01-27-2024 End: 11-69-1615Whceoerujm and management of inpatientCOP[facility] SPRINGS [facility] NADERERProMedica Wallace HospitalStart: 01-27-2024 End: 97-59-8545Zyjpgn OnlyHeavenly Rivers [facility] Jobst Vascular Comment on above:Carotid stenosis, asymptomatic, left (Primary Dx); Pre-op testingStart: 01-27-2024 End: 26-39-9157Epqnkqn encounter Cong [facility] Start: 01-27-2024 End: 96-90-3666Igfxhgrluw and management of inpatientBRISA ENCISOProMedica Morse HospitalStart: 01-22-2024 End: 44-25-8282Mtafqj outpatient visit 25 minutesBrisa Enciso MD Work Phone: [facility] Comment on above:PAD (peripheral artery disease) (CMS-HCC) (Primary Dx); Bilateral carotid bruitsStart: 01-21-2024 End: 29-52-0473Aafqpsaeb to [facility] Pat Phone Call Provider 3 Javed [facility]ck[facility]: 01-21-2024 End: 36-18-0625Uhprxwtnei and management of inpatientOhio State University Wexner Medical Centertart: 01-15-2024 End: 84-80-8708Jvlsypofc Result EncounterGeneric External Data ProviderNOMS External Department UnsolicitedStart: 01-15-2024 End: 01-00-5014Kugglfobw Result EncounterGeneric External Data ProviderNOMS External Department UnsolicitedStart: 01-08-2024 End: 06-40-0415Jwnbro outpatient visit 25 minutesBrisa Enciso MD Work Phone: [facility] Comment on above:Carotid stenosis, asymptomatic, left (Primary Dx); Rest pain of both lower extremities due to atherosclerosis [place]Start: 12-25-2023 End: 48-95-0464Kuchap outpatient visit 40 minutesBrisa Enciso MD Work Phone: [facility] Comment on above:Left carotid artery stenosis (Primary Dx); Chronic kidney disease, stage 3b [place]Start: 69-46-9765Rfxou abstracting Brisa Enciso MD Work Phone: [facility] Jobst VascularStart: 11-22-2023 End: 31-63-6714Gclpwhexv Result EncounterGeneric External Data ProviderNOMS External Department UnsolicitedStart: 11-22-2023 End: 69-58-0623Ilandvenb Result EncounterGeneric External Data ProviderNOMS External Department UnsolicitedStart: 11-03-2023 End: 96-18-7614wshnbgevdtBQQLBarberton Citizens Hospitaltart: 10-30-2023 End: 21-01-7369Mlsgzq outpatient visit 25 minutesJose Brewer MD Work Phone: [facility] FMComment on above:Type 2 diabetes mellitus with microalbuminuria, without long-term current use of insulin ([facility]) ( Primary Dx); Chronic heart failure with preserved ejection fraction (HFpEF) ([facility]); Benign essential hypertension ([facility]); Primary osteoarthritis of shoulders, bilateral; Gastroesophageal reflux disease without esophagitis; Skin candidiasis; PAD (peripheral artery disease) ([facility])Start: 78-41-5393Dynmoa Yakov Brewer MD Work Phone: [facility] FMStart: 46-34-9841Ykhfxa Yakov Brewer MD Work Phone: noms [facility] FMStart: 08-04-2023 End: 17-56-4128mvoeaihhdqIlwd Bakhous Other [employer]Sen[employer] Other Start: 21-26-5109Ohyyejyik encounterAzashley BakselenesJEFEG NephrologyStart: 07-10-2023 End: 86-07-1499sjlbyiwpceYluj Bakhous Other noSen[employer] Other Start: 73-29-8496Aieawd outpatient visit 25 minutes Aziz BakselenesFPG NephrologyStart: 03-07-2023 End: 31-10-1894wtyvoakntbZiww Bakhous Other [employer]Sen[employer]en [employer] Other Start: 63-04-0186Gfzcta outpatient visit 25 minutes Aziz BakselenesFPG NephrologyStart: 02-11-2023 End: 57-06-8602fjrldwbzpgVRRO BAKHOUSFacility:D7Ituqf: 12-23-2022 End: 98-75-9937zxdqeaeoyrBN JOSE A NADERERFacility:Q4Pymul: 11-11-2022 End: 32-41-1423dwtaigyyboWI JOSE A NADERERFacility:Q9Cmclk: 09-25-2022 End: 62-30-4596bqvfwubkoeUihf Bakhous Other [employer] Other Start: 94-16-5040Lawajj outpatient visit 25 minutes Kaur Waddell NephrologyStart: 09-17-2022 End: 09-11-2109gsszedtteyAXUM BAKHOUSFacility:B6Goolq: 07-30-2022 End: 61-07-5895bvnjriubnzNT JOSE A NADERERFacility:X9Qgeuw: 07-23-2022 End: 07-54-5283sbzxtjqzmbGP JOSE A NADERERFacility:N4Ebipb: 07-09-2022 End: 28-86-3493gtylixdgseIL ALVA Johnston WESTFacility:T3Cbthm: 97-23-0843qlusxrqqcl JERICA TUCKERFacility:W3Lovrz: 04-24-2022 End: 86-24-4799Gvnlgkzkjq RecurringMD Kaur Huizar Work Phone: [facility]-Infusion Therapy - O/P Start: 04-08-2022 End: 44-06-8002jinkpprblbJA EHAB ELTAHAWYFacility:P3Qpzrs: 04-04-2022 End: 19-00-6971seuuqyautwJN JOSE A NADERERFacility:J2Kdncp: 04-02-2022 End: 90-57-9419qsmgbpmnltPxsj Bakhous Other [place] [employer] Other Start: 43-59-0583Kejlqk outpatient visit 25 minutes Kaur Waddell NephrologyStart: 03-25-2022 End: 25-82-5013etsbqpblqjGC DOCTOR MISCFacility:D3Xhlar: 03-12-2022 End: 81-05-6288vnlrpnnvvqHN ALVA Johnston WESTFacility:X4Qpduc: 03-08-2022 End: 80-80-9283fwziatmxsaWTKUIVH TUCKERFacility:V1Pcrym: 03-07-2022 End: 64-90-6544wzohuyiowgIE ALVA GRACEFacility:Y2Fizys: 03-01-2022 End: 27-70-3500tlqdnsgkohNB ALVA Johnston WESTFacility:E6Kikzs: 38-36-5968vkjiepjcqi KAREEN Mendoza [facility]OSPITALFacility:C9Bsgil: 01-22-2022 End: 86-70-0270nsaimzzyfvSvfn Bakhous Other [place] [employer] Other Start: 32-13-2776Cnnqmg outpatient visit 25 minutes Aziz BakselenesFPG Nephrology ClydeStart: 01-18-2022 End: 12-02-5373utpkidneqbObws Bakhous Other noVirnetX [employer] Other Start: 07-17-9044Nmuxsqlqz encounterAziz BakhousFPG NephrologyStart: 01-14-2022 End: 09-56-5761awivmqjwmtBlff Bakhous Other noVir[employer]X [employer] Other Start: 95-87-5022Dgdekrnpe encounterAziz BakhousFPG NephrologyStart: 10-23-2021 End: 97-97-7449juhstqimpbVwci Bakhous Other noVir[employer]X [employer] Other Start: 19-17-5681Sesatepeq encounterAziz BakhousFPG NephrologyStart: 07-28-2020 End: 54-34-2324Ktezyef encounter procedureREFERRED SELFFacility:[facility] Procedures DateProcedureProcedure DetailPerforming ClinicianStart: 38-17-9750Ilkhvg-up visitFollow-upJESSICA A CARROLLStart: 92-32-4415Aqou bld gluc mntr dev cleared fda spec home useDelia Bustos MD Work Phone: Start: 19-90-7565Cqsu bld gluc mntr dev cleared fda spec home useDelia Bustos MD Work Phone: Start: 11-77-9767Gsbr bld gluc mntr dev cleared fda spec home useDelia Bustos MD Work Phone: Start: 24-72-7306LYX URINALYSISGeneric External Data ProviderStart: 16-31-1045Mhwqneutndboini of liverMD Jose Brewer Work Phone: Start: 83-03-2537Vtvgoaclwc elastography of liverMD Jose Brewer Work Phone: Start: 58-67-0545QF ECHO DOPPLER COMPLETEGeneric External Data ProviderStart: 61-64-6041Fsngjyq of carotid endarterectomyHistory of CEA (carotid endarterectomy)Brisa Enciso MD Work Phone: Start: 20-06-6117Dhvrt depression screening assessment Brisa Enciso MD Work Phone: Start: 75-82-7581OHJGTVSDG BLOOD PRESSUREGeneric External Data ProviderStart: 58-22-1201CU ABDOMEN/PELVIS WO CONTGeneric External Data Provider Plan of Treatment DateCare ActivityDetailAuthorStart: 54-96-5662DIaA,Tdap and Td Vaccines (4 - Td or Tdap)DTaP,Tdap and Td Vaccines (4 - Td or Tdap)[facility] SystemStart: 25-74-4217WDcX,Tdap and Td Vaccines (2 - Td or Tdap)DTaP,Tdap and Td Vaccines (2 - Td or Tdap)[facility] SystemStart: 10-63-1006Aobaxpai screening Diabetes: Retinopathy ScreeningKANE COUNTY HUMAN RESOURCE SSD HealthcareStart: 98-76-0500Hnzfcuhe screeningDiabetes: Retinopathy ScreeningNOUT HealthcareStart: 83-18-1483Yexirvn ScreeningTobacco ScreeningProOhiohealth [facility]ville Health Centerca Health SystemStart: 60-04-1511Grkdd screening for proteinDiabetes: Urine Protein ScreeningNOUT HealthcareStart: 63-66-1390Uknhaskqrl A1c measurementDiabetes: Hemoglobin N6BIIBL Healthcare Start: 53-96-6001Azfyrfqh screeningDiabetes: Retinopathy ScreeningKANE COUNTY HUMAN RESOURCE SSD HealthcareStart: 11-03-2025 End: 08-94-2280Vmwcpqq encounter ilrxtcplp30/19/2026 1:00 PM EST Office Visit [facility] [address] [place] [address] Jose Brewer MD [address] [place] [address] JOSE CHAN FMStart: 10-10-2025 End: 91-80-3696Hvguemd encounter dvyrnzcrc34/26/2026 1:00 PM EST Office Visit [facility] [address] [place] [address] Delia Bustos MD [address] [place] [address] [facility] [place] EndocrinologyStart: 12-06-2025Medicare Annual Wellness (AWV)Medicare Annual Wellness (AWV)[facility] HealthcareStart: 28-00-4082Ubvlgicxuj A1c measurementDiabetes: Hemoglobin A1C [facility] HealthcareStart: 06-13-2025 End: 62-17-7497Vjjbpfc encounter procedureNOHuntsville Hospital SystemPoplar EndocrinologyComment on above:Type 2 diabetes mellitus with hyperglycemia, without long-term current use of insulin (HCC)Start: 95-22-1349Hvmsoloti vaccinationNOUT HealthcareStart: 12-39-6722Bwvzi screening for proteinDiabetes: Urine Protein ScreeningKANE COUNTY HUM[facility] RESOURCE SSD HealthcareStart: 05-03-2025 End: 01-59-1816Pkhnxvw encounter hnlctterh26/19/2025 1:00 PM EDT Office Visit [facility] CHAN [address] [place] [address] Jose Brewer MD [address] [place] [address] NOMGovind CHAN FMStart: 48-45-3817Zjedlukatn A1c measurementDiabetes: Hemoglobin I2DFOXG HealthcareStart: 92-90-2537Wearo BMI ScreeningAdult BMI Screening [facility] SystemStart: 51-95-2043Ohmhuqc ScreeningTobacco Screening [facility] SystemStart: 93-08-5462Mjypj BMI ScreeningAdult BMI Screening [facility] SystemStart: 49-64-1539Erwbxrv ScreeningTobacco Screening [facility] He[facility]htart: 02-14-2025 End: 323033-kqtuzrirouexnl D3 [Mass/volume] in Serum or PlasmaVitamin D 25 hydroxy Total Lab Routine Type 2 diabetes mellitus with hyperglycemia, without long-term current use of insulin ([facility]) Expected: 02/14/2025 (Approximate), Expires: 02/14/2026[facility] Work Phone: Comment on above:Expected: 02/14/2025 (Approximate), Expires: 02/14/2026Start: 02-14-2025 End: 57-85-1045Oiwsm 1996 panel - Serum or PlasmaLipid panel Lab Routine Type 2 diabetes mellitus with hyperglycemia, without long-term current use of insulin ([facility]) Expected: 02/14/2025 (Approximate), Expires: 02/14/2026[facility] Comment on above:Expected: 02/14/2025 (Approximate), Expires: 02/14/2026Start: 02-14-2025 End: 29-62-8025Uzmvljnvkwju/Creatinine panel in random UrineMicroalbumin / creatinine urine ratio Lab Routine Type 2 diabetes mellitus with hyperglycemia, without long-term current use of insulin ([facility]) Expected: 02/14/2025 (Approximate), Expires: 02/14/2026[facility] HealthcareComment on above:Expected: 02/14/2025 (Approximate), Expires: 02/14/2026Start: 02-14-2025 End: 29-86-2790Tnrfw function panelRenal function panel Lab Routine Type 2 diabetes mellitus with hyperglycemia, without long-term current use of insulin ([facility]) Expected: 02/14/2025 (Approximate), Expires: 02/14/2026[facility] Comment on above:Expected: 02/14/2025 (Approximate), Expires: 02/14/2026Start: 02-14-2025 End: 58-76-6660Qlfupxl encounter procedureNOCOX WALNUT LAWN ENDOCRINOLOGYComment on above: Type 2 diabetes mellitus with hyperglycemia, without long-term current use of insulin ([facility])Start: 35-30-6175Ttefrtpfdc ScreeningDepression Screening [facility] SystemStart: 23-80-4348Vnotbne ScreeningTobacco Screening [facility] SystemStart: 81-43-5253Zbpyi BMI ScreeningAdult BMI Screening [facility] SystemStart: 46-94-3598Ltxsh BMI ScreeningAdult BMI Screening [facility] SystemStart: 10-09-2153Ipfaibr ScreeningTobacco Screening [facility] SystemStart: 01-19-2025 End: 88-63-8585Zjdoahl encounter iqwlqksud92/07/2025 9:00 AM EDT Office Visit [facility] CWTemo [address] [place] [phone] Jose Brewer MD [address] [place] [phone] ArrivedNOMS ROCIO FMComment on above:ArrivedStart: 26-68-4912Hrdgv BMI ScreeningAdult BMI ScreeningCleveland Clinic [facility] Hospital SystemStart: 82-17-0543Heajipe ScreeningTobacco ScreeningPremier Health [facility] SystemStart: 93-21-3894Fxkef BMI ScreeningAdult BMI ScreeningC[facility] Clinic [facility] SystemStart: 28-67-8503Hohjcsk ScreeningTobacco ScreeningC[facility] Clinic [facility] SystemStart: 13-22-3647Slata screening for proteinDiabetes: Urine Protein ScreeningNOUT HealthcareStart: 00-31-3600Fybghaqagp A1c measurementDiabetes: Hemoglobin W9SIDHD Healthcare Start: 11-02-2024 End: 48-77-6501Idwwojg encounter zceskdazm12/18/2025 1:00 PM EST Office Visit [facility] [address] [place] [address] Jose Brewer MD [address] [place] [address] [facility] ROC[facility] FMStart: 10-18-2024 End: 08-31-7117Efcwjas encounter procedureNOMS ENDOCRINOLOGYComment on above: Type 2 diabetes mellitus with hyperglycemia, without long-term current use of insulin ([facility])Start: 09-29-2024 End: 49-61-8600Qmwjupc encounter fvkwlblby41/15/2025 1:40 PM EST Office Visit [facility] [address] [place] [phone] Delia Bustos MD [address] [place] [address] NOMS ENDOCRINOLOGYStart: 08-25-2024 End: 51-89-2544Ibzagrf encounter gexshuehj59/11/2024 2:00 PM EST Office Visit [facility] [address] [place] [phone] Chanelle Benz MD [address] [place] [address] 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NOMS CI ENTComment on above: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Start: 08-20-2024 End: 53-72-8060Wltkyth encounter /06/2024 11:45 AM EST Office Visit [facility] CW FM [address] [place] [address] Jose Brewer MD [address] [place] [address] ArrivedNOUT CWM FMComment on above:ArrivedStart: 02-84-9322Bedgx BMI ScreeningAdult BMI ScreeningC[facility] Clinic [facility] Hospital SystemStart: 25-28-3681Qgdzitx ScreeningTobacco ScreeningProMarietta Osteopathic Clinic SystemStart: 23-31-4328UqyidtpwlMercy Health Clermont Hospitaltart: 30-59-7645Noegn smooth muscle IgG Ab [Units/volume] in SerumMercy Health Clermont Hospitaltart: 06-17-2024 Ucane-8-jfllinocmef.tumor marker [Mass/volume] in Serum or PlasmaMercy Health Clermont Hospitaltart: 30-63-9920Vunpltgiucefz [Mass/volume] in Serum or PlasmaMercy Health Clermont Hospitaltart: 62-49-0116Ejduteddn A virus Ab [Presence] in Serum by ImmunoassayMercy Health Clermont Hospitaltart: 22-11-8871Xmgfkegmd A virus antibody, IgM typeSheltering Arms Hospital Start: 62-74-0589Ezguyzckh B core antibody measurementMercy Health Clermont Hospitaltart: 16-89-5294Tlmjtmppr B core antibody measurement, IgM typeMercy Health Clermont Hospitaltart: 88-17-4172Wrnkwfavr B virus surface Ab [Presence] in SerumMercy Health Clermont Hospitaltart: 24-82-2275LvH [Mass/volume] in Serum or PlasmaMercy Health Clermont Hospitaltart: 32-44-4605Ocabvbrfead a [Moles/volume] in Serum or PlasmaMercy Health Clermont Hospitaltart: 12-07-3870Cyzzmjmgofyf M2 IgG Ab [Units/volume] in SerumMercy Health Clermont Hospitaltart: 02-51-7321KjauutcxtMercy Health Clermont Hospitaltart: 55-03-2738Kxbeobtxry A1c measurementDiabetes: Hemoglobin J3GIUJZCarondelet Health Start: 91-56-7745ZFQWR-19 Vaccine ( season)COVID-19 Vaccine ( season)[facility] SystemStart: 34-75-2908Qtpzzrvgi vaccinationCarondelet HealthStart: 04-29-2024 End: 90-77-2759Dxddvso encounter /15/2024 1:00 PM EDT Office Visit [facility] [address] [place] [phone] Jose Brewer MD [address] [place] [address] [facility] CWTemo FMStart: 03-11-2024 End: 51-33-4935NG Carotid arteries - bilateralVas carotid duplex bilateral Vascular Ultrasound Routine History of CEA (carotid endarterectomy) Carotid stenosis, right Expected: 03/11/2024, Expires: 03/11/2025[facility] Work Phone: Comment on above:Expected: 03/11/2024, Expires: 03/11/2025Start: 02-26-2024 End: 78-21-3588Mdsvsbt encounter tdzbigjxx47/13/2024 10:20 AM EDT [facility] W[facility] [address] [place] [address] Brisa Enciso MD [address], [facility] [address] [place] [address] [facility] and Wound CareStart: 02-17-2024 End: 72-64-2261Jlbpzgx encounter /04/2024 10:30 AM EDT Appointment [facility] - Vascular [address] [place] [address] Brisa Enciso MD [address], [address] [address] [facility] - VascularStart: 02-11-2024 End: 15-57-3255Sgenzkaxi to same day surgery lbebke5702/11/2024 12:30 PM EDT - 02/11/2024 3:30 PM EDT Surgery [facility] Surgery [address] [place] [phone] Brisa Enciso MD [address], [address] [address] ENDARTERECTOMY CAROTID [84740 (CPT )][facility] SurgeryComment on above:ENDARTERECTOMY CAROTID [40081 (CPT )]Start: 25-02-4414Eguoisphqi hospital visit by edlmbcydz61/29/2024 12:30 PM EDT Hospital Encounter [facility] Surgery [address] [place] [phone] Brisa Enciso MD [address], [address] [place] [address] 41 (Work) [facility] SurgeryStart: 02-11-2024 End: 14-67-9730Tumts w/patch grf carotid vertb subclav neck incENDARTERECTOMY CAROTID CAROTID STENOSIS, ASYMPTOMATIC, LEFT 02/11/2024 12:30 PM EDTTOLEDO SURGERYStart: 02-10-2024 End: 40-67-4107Iukfyue encounter udijqjckf38/28/2024 12:00 PM EDT Appointment [facility] - Cardiovascular [address] [place] [address] Brisa Enciso MD [address], [address] [place] [address] [facility] CardiovascularStart: 01-27-2024 End: 81-07-8900Zgmr complete W/O contrastEcho complete W/O contrast Echocardiography Routine Carotid stenosis, asymptomatic, left Pre-op testing Expected: 01/27/2024, Expires: 01/26/2025[facility] Work Phone: Comment on above:Expected: 01/27/2024, Expires: 01/26/2025Start: 01-27-2024 End: 54-93-2508Byeadsctn to same day surgery ncafhh0601/27/2024 12:00 PM EDT - 01/27/2024 3:00 PM EDT Surgery [facility] Surgery [address] [place] [phone] Brisa Enciso MD [address], [address] [place] [address] ENDARTERECTOMY CAROTID [91444 (CPT )][facility] SurgeryComment on above:ENDARTERECTOMY CAROTID [96496 (CPT )]Start: 44-77-2598Hqrjxfedbd hospital visit by myisayrrq73/14/2024 12:00 PM EDT Hospital Encounter [facility] Surgery [address] [place] [phone] Brisa Enciso MD [address], [facility] [address] [place] [address] 41 (Work) [facility] SurgeryStart: 01-27-2024 End: 10-85-6525Nweox w/patch grf carotid vertb subclav neck incENDARTERECTOMY CAROTID Carotid stenosis, asymptomatic, left 01/27/2024 12:00 PM EDTTOLEDO SURGERYStart: 01-22-2024 End: 05-53-7439Oduyqqz encounter hrzkuzapq15/09/2024 11:20 AM EDT Office Visit [facility] [address] [place] [address] Brisa Enciso MD [address], [facility] [address] [place] [address] (Work) [facility] Wound CareStart: 01-08-2024 End: 10-74-6410UU.doppler Extremity arteries - bilateral for physiologic artery studyVas art doppler lwr bilat mult lev/PVR Vascular Ultrasound Routine Rest pain of both lower extremities due to atherosclerosis ([facility]) Expected: 01/08/2024, Expires: 01/07/2025[facility] Work Phone: Comment on above:Expected: 01/08/2024, Expires: 01/07/2025Start: 01-08-2024 End: 04-74-6357Odklwis encounter ndjahhbjq22/25/2024 1:00 PM EDT Office Visit [facility] [address] [place] [address] Brisa Enciso MD [address], [facility] [address] [place] [address] [facility] Wound CareStart: 12-25-2023 End: 22-48-0458Hojcqki encounter kdvzhwzaj09/11/2024 9:00 AM EDT Office Visit [facility] [address] [place] [address] Brisa Enciso MD [address], [address] [address] [facility] Surgery and Wound CareStart: 10-30-2023 End: 71-31-0872Kxlzcsd encounter savdgbzlg75/15/2024 2:15 PM EST [facility] [address] [place] [id number] Jose Brewer MD [address] [place] [phone] ArrivedST. [facility] FMComment on above:ArrivedStart: 23-83-2652Mevoequgdl A1c measurementDiabetes: Hemoglobin B9WZAPR HealthcareStart: 46-20-1625Lonn Risk ScreeningFall Risk ScreeningCleveland Clinic Marymount Hospital SystemStart: 92-48-4872Sdynz BMI Follow Up PlanAdult BMI Follow Up PlanCleveland Clinic Marymount Hospital SystemStart: 1948 Depression ScreeningDepression ScreeningCleveland Clinic Marymount Hospital SystemStart: 1946 Glaucoma screeningDiabetes: Retinopathy ScreeningK[facility] SSD HealthcareStart: 04-02-1937Medicare Annual Wellness (AWV)Medicare Annual Wellness (AWV)[facility] HealthcareStart: 04-02-1937Medicare Annual Wellness VisitMedisumma [facility] Annual Wellness VisitAultman Orrville HospitalAlpha 1 antitrypsin [Mass/volume] in Serum or PlasmaSheltering Arms HospitalAlpha 1 antitrypsin phenotyping [Identifier] in Serum or Plasma by ImmunofixationSheltering Arms Hospital End: 05-31-2026 difficile by PCRC difficile by PCR Lab Routine Diarrhea, unspecified type 1 Occurrences starting 05/31/2025 until 05/31/2026[facility] Work Phone: Comment on above:1 Occurrences starting 05/31/2025 until 05/31/2026 difficile by PCRC difficile by PCR Lab Routine Diarrhea, unspecified type 05/31/2025 11:30 AM [facility]Com[facility] 1999 panel - Serum or PlasmaSheltering Arms HospitalHepatibaptist memorial hospital for women B virus surface Ag [Presence] in Serum or Plasma by ImmunoassaySheltering Arms HospitalHepatitis C virus IgG Ab [Presence] in Serum or Plasma by ImmunoassaySheltering Arms HospitalHFE gene mutations found [Identifier] in Blood or Tissue by Molecular genetics method NominalSheltering Arms HospitalHomogenous nuclear Ab pattern [Titer] in SerumSheltering Arms HospitalNuclear Ab [Titer] in Cleveland ClinicRenal function 1999 panel - Serum or PlasmaSheltering Arms HospitalRenal function 1999 panel - Serum or [facility] HospitalUS LiverSilver Lake Medical [facility] Immunizations Immunization DateImmunizationNotesCare BhgneeyxNphdwmvp92-44-0217npkjpbjwq, high dose seasonal, preservative-freeCharlotte Abrams CHIEF MEDICAL DIRECTOR Work Phone: [facility] HealthWuefotsmud21-19-7533Sfqvfjsrkvxn Conjugate PCV 20 Charlotte Aliza CHIEF MEDICAL DIRECTOR Work Phone: [facility] HealthEzrwwqjgok66-25-9686ldubcrlqb virus vaccine, unspecified formulationJose Brewer MD Work Phone: noRay County Memorial HospitalPtnspderfn66-83-1927ZDE, bivalent, protein subunit RSVpreF, diluent reconstituted, 0.5 mL, PFMoluna Enciso MD Work Phone: [phone] Orrville HospitalSjkfln30-75-5390Xlmjlgjpr, High-dose, QuadrivalentMoluna Enciso MD Work Phone: [phone]rville HospitalXrxluu94-86-0327qgtufswpg virus vaccine, unspecified formulationBrisa Enciso MD Work Phone: [facility] HospitalNmscbd19-81-6567Titrqnyzjufz Conjugate PCV 20Delia Bustos MD Work Phone: NORay [facility] HospitalVtxrwljcdr33-68-3603lmrqzqn toxoid, reduced diphtheria toxoid, and acellular pertussis vaccine, adsorbedAhmad Akash MD Work Phone: [facility] HealthBkdbooujak03-47-4232Xvkaxlsuy, High-dose, QuadrivalentMoluna Enciso MD Work Phone: [phone] HospitalKbzmty17-39-2285zeccknfzl virus vaccine, unspecified formulationDelia Bustos MD Work Phone: [facility] HealthMvlqrafgrd61-35-3598bgbjnn vaccine recombinant Mohamed Fernie EATON Work Phone: [phone] HospitalXslmry35-11-8005xdampzssehqm polysaccharide vaccine, 23 valentBrisa Enciso MD Work Phone: [phone]04-01-2022zoster vaccine recombinantMoluna Enciso MD Work Phone: [phone] HospitalKylnfj95-90-7370Kbbtavnpd Vaccine, Quadrivalent, AdjuvantedBrisa Enciso MD Work Phone: [phone] HospitalActhgd78-37-5417xotbgwkgpjnp conjugate vaccine, 13 valentBrisa Enciso MD Work Phone: [phone] HospitalRkyfve80-85-0771hodwqptkw virus vaccine, unspecified formulationDelia Bustos MD Work Phone: [facility] HealthXvshlmkeft90-20-7272ddmimfhpt, high dose seasonal, preservative-freeBrisa Enciso MD Work Phone: [phone] HospitalLerdwi28-28-1059wfrmvsail, injectable, quadrivalent, preservative freeBrisa Enciso MD Work Phone: [phone]03-08-2019tetanus toxoid, reduced diphtheria toxoid, and acellular pertussis vaccine, adsorbedBrisa Enciso MD Work Phone: [phone] HospitalHolssn33-02-3366aovuxgfdk, injectable, quadrivalent, preservative freeBrisa Enciso MD Work Phone: [phone] HospitalPikhgd81-80-1683zmteyjxbfkto polysaccharide vaccine, 23 valentBrisa Enciso MD Work Phone: [facility] HospitalRzumff90-95-3982xrjizabec virus vaccine, unspecified formulationDelia Bustos MD Work Phone: [facility] HealthOjgvqdidqk84-32-2859pghmbcdlxmvr polysaccharide vaccine, 23 Mohit Bustos MD Work Phone: [facility] HealthOjfnfrroya63-79-1809wancynaautyg vaccine, unspecified formulationDelia Bustos MD Work Phone: [facility] HealthYyescrqqfo63-99-3065mozpznfsj virus vaccine, unspecified formulationDelia Bustos MD Work Phone: [facility] HealthQgtbeabgwd91-81-3764zcxsyo vaccine, liveMohamamos Enciso MD Work Phone: [facility] HospitalMkxjfi27-16-4554yxrootrxbhvz conjugate vaccine, 13 Mohit Bustos MD Work Phone: [facility] HealthMwazzkaqah26-47-3231kcjueetfx virus vaccine, unspecified formulationDelia Bustos MD Work Phone: [facility] HealthKxgszjedac39-27-1460ogytazn toxoid, reduced diphtheria toxoid, and acellular pertussis vaccine, adsorbedDelia Bustos MD Work Phone: noRay County Memorial HospitalFlvsluopom60-35-2837qxcrpepsq virus vaccine, unspecified formulationDelia Bustos MD Work Phone: [facility] Payers DatePayer CategoryPayerPolicy [id number] MEDICARE ADVANTAGE [id number] 2023Medicare [id number] 2023Medicare [facility] Member Subscriber Plan / Payer (Effective 2022-Present) Name: Carlo Henderson Relation to Subscriber: Self Name: Carlo Henderson Payer ID: 1 (NAIC) Type: Not on file Address: [address] [id number] 1959Medicare [id number]-[facility] [id number] [id number] 2..1.854955.3.57[id number] 2..1.663572.3.57[id number] 2..1.682477.3.57[id number] 2..1.748607.3.57[id number] 2..1.459813.3.57[id number] 2..1.858505.3.579.2.25852-35-8884Wziqwqx2541450 2..1.485802.3.579.2.78393-10-8507Fcpukck3437202 2.16840.1.266724.3.57[id number] 2.16840.1.944430.3.579.2.00090-41-7297Qvyizjq4587123 2.16840.1.355364.3.57[id number] 2.16840.1.839543.3.579.2.79014-44-7576Zgdhefz5276178 2.16840.1.185133.3.57[id number] 2.840.1.861515.3.579.2.19137-04-3940Aoacpgx3842460 2.840.1.144828.3.579.2.31320-61-0117Yqprgvh5394116 2.840.1.732253.3.579.2.85172-58-9947Lhfvejv8513844 2.840.1.899710.3.579.2.16683-60-7436Qgcxykq3649262 2.840.1.842653.3.579.2.341 [id number] 2.840.1.279134.3.579.2.544179-57-6383Qrvuywd78239564 2.16840.1.484041.3.579.2.253353-31-9038Rguinba07766529 2.16840.1.533716.3.579.2.129178-81-6089Wlbbjtw89863509 2.16840.1.534236.3.579.2.[id number] 2.16840.1.635408.3.579.2.[id number] 2.0.1.923448.3.579.2.025468-09-4733Ogcsyob472836817 2.16840.1.889594.3.579.2.[id number] 2.0.1.543323.3.579.2.517461-63-9313Rstbqjw10932549 2.840.1.084420.3.579.2.898872-24-2718Shtdinv05053775 2.0.1.648813.3.579.2.016656-76-6308Vberbyc2244553 2.0.1.916467.3.57[id number] 2.0.1.373003.3.579.2.242528-16-6520Lkmjzff7796283 2.0.1.058806.3.579.2.202893-99-8799Ojbrqza4361863 2.0.1.079334.3.579.2.504091-10-5262Fqkemgf6585396 2..1.761907.3.579.2.586630-83-2329Ueglrzi4612174 2.0.1.144203.3.579.2.578793-90-0155Eoxomnm836350064 2.840.1.753158.3.579.2.549087-12-2354Nrfnsmp117946338 2.840.1.220397.3.57[id number] 2.16840.1.157912.3.579.2.135Nxmzzkg24666934 2.16.840.1.910384.3.579.2.531 [id number] 2.840.1.529382.3.579.2.320Pqkfcob512143227 Social History DateTypeDetailFacilityUnknown if ever smokedNowashington university medical center [facility] Other Start: 10-08-2023 End: 12-96-0785Osh Assigned At [facility] Other Start: 97-79-9726Kvo Assigned At [facility] Healthcaretart: 10-08-2023 End: 58-96-1498Crxgjos smoking status NHISEx-smokerNOMS Healthcare End: 78-59-1304Bbufjcw of tobacco useCurrent smokerNOMS Healthcare End: 12-59-0432Yovlero of tobacco useCigarette SmokerNOMS HealthcareHistory of tobacco usePipe SmokerNOMS HealthcareHistory of tobacco useCigar SmokerNOMS HealthcareStart: 10-08-2023 End: 28-59-4067Sgdzsqt use and exposureSmokeless tobacco non-userN[facility]S Healthcare Start: 10-08-2023 End: 00-88-8904Ipwwxoq intakeCurrent drinker of alcohol (finding)[facility] Start: 10-08-2023 End: 46-76-9018Iwtgxed of Social functionNOMS HealthcareStart: 12-59-1657Vlprodd Comment4 cigars a day x 30 plus yearsNOMS HealthcareStart: 55-81-0381Ajzjlwr Commentcaffeine intake: 3-4 cups per day; coffee daily, pop sometimesNOMS HealthcareStart: 65-60-7378Mag Assigned At [facility]antonNot on fileN[facility]S Healthcare History of tobacco usePassive smokerNOMS HealthcareHow often to you have a drink containing alcohol?Monthly or lessNOMS HealthcareHow many standard drinks containing alcohol do you have on a typical day?1 or 2NOMS HealthcareHow often do you have 6 or more drinks on 1 occasion?NeverNOMS HealthcareStart: 04-29-2024 End: 50-36-3362Mdfnrsgwv beverage intakeEx-drinker (finding)[facility] Start: 04-20-2015 End: 86-13-2461LipSqwg (finding)[facility] Hospitaltart: 01-08-2024 End: 11-15-3577Knbdwdkzl beverage intakeCurrent non-drinker of alcohol (finding) [facility] Priviatart: 18-65-4424YrsbcsvleLscgghkVtfMimlrj Health System Has the electric, gas, oil, or water company threatened to shut off services in your home in past 12Up[facility] Community Campustart: 32-54-0426Wewbpri Comment [facility] Medical Equipment Procedure CodeEquipment CodeEquipment Original TextEquipment IdentifierDates [id number]: 12-31-2016 End: each by Other route if [id number]: 40-45-4113Liv as [id number]: times a [id number]: 56-86-0813TFX ONE STRIP TO TEST FOUR TIMES A [id number]: 09-02-2024 End: 08-97-1631Efhky Cv 8x.8cm N-Pyrg Tpr End Photofix Decellularized Bvn Rpl [id number] - [id number]_jjnRklqb: 58-78-2783NJWZ-CHEK SOFTCLIX LANCETS [id number]: 65-40-7437ZBI THREE TIMES A DAY.[id number]: times a [id number]: 70-57-5386JTA 1 TEST STRIP 3 TIMES A [id number] Start: 03-14-2025 Goals DatePatient GoalDesired Activity/StatePersonal health goalComment on above: Evaluation of progress towards goal: Safe dc return home with family support and resume with [facility].Personal health goalComment on above: Patient would like to return home after discharge. Functional Status KjgbCxvdlzoixuAlwgyfZmbcasjt17-69-7747Defdmms Health Questionnaire 2 item (PHQ- 2) [Reported][facility] Clinical Notes 01-14-2022 to 06-28-2025 Note Date & JzkvAwwvBbcpbhlx79-17-7086 History of Present illness Narrative* KERA Patel - 06/28/2025 11:30 AM EDT 89-year-old male status post laparoscopic appendectomy on 05/12/2025. He is doing better. He states he is no longer having diarrhea but his bowels are soft. 2 bowel movements daily. Taking fiber gummies. He denies fever/chills. He denies abdominal pain. He is tolerating oral intake. On exam, abdomen is soft, nontender, nondistended. May resume normal activities and follow up as needed. High-fiber diet. Final Diagnosis Vermiform appendix, laparoscopic appendectomy: Fecaliths (multiple), appendix lumen. 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 No evidence of active acute appendicitis is identified. The entire vermiform appendix has been submitted for examination and evaluation. KERA Patel 06/28/25 1120 documented in this encounterAultman Orrville Hospital09-29-2025 History of Present illness Narrative* Delia Bustos MD - 06/13/2025 1:00 PM EDT Images from the original note were not included. Carlo Henderson is a 89 y.o. male No ref. provider found presents with chief complaint of Diabetes HPI: IM : 05/2025 Follow-up visit 06/13/2025 A1c 6.3 blood sugar 190, currently he is on glimepiride 2 mg twice a day, Januvia 50 mg once a day, Jardiance 25 mg once a day, new lab in May/2025 vitamin-D 38, GFR 40, total cholesterol 225, HDL 49, LDL 140, albumin over creatinine 126. 01/2025 History of Present Illness The patient [...] 2.04, GFR 31, hemoglobin 7.8. I told himhe need to follow with endo tech under primary care recommendation. Total cholesterol 111, HDL 44, triglycerides 71, LDL 52, vitamin D 31, albumin over creatinine 51, and C- peptide 4.7. He is on Actos 15 mg once a day. HPI: 07/2021 [facility] for uncontrolled diabetes. A1C in the office was 7. Bloodsugar 203. He has anemia, GI bleed; but [...] mg, Oral, 2 times daily glucose blood (FantasyBookuch Verio) test strip USE 1 TEST STRIP 3 TIMES A DAY Glycopyrrolate-Formoterol 9-4.8 MCG/ACT aerosol 2 puffs, 2 times daily hydrOXYzine HCl (ATARAX) 25 mg Lancets (OneTouch Delica Plus Vejoex85D) misc 3 times a day lisinopril 20 mg, Oral, Daily magnesium oxide 420 MG tablet 1 tablet, Daily meclizine (ANTIVERT) 25 mg, 4 times daily PRN pantoprazole (PROTONIX) 40 mg, Oral, Daily before breakfast SITagliptin (JANUVIA) 50 mg, Oral, Daily spironolactone [...] for fall B12 deficiency Benign essential hypertension Bilateral carotid artery stenosis CAD (coronary artery disease) Chronic constipation Chronic diastolic heart failure ([facility] 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 COPD (chronic obstructive pulmonary disease) ([facility]) PFT 09/20/2020 -FEV1/FVC: 62% -FEV1: 69% -FVC: 77% -Bronchodilator response: None -RV: 127% -T%-DLCO: 57% -Flow-volume loop: Moderate obstruction COPD with acute exacerbation ([facility]) Coronary artery disease, occlusive CRF (chronic renal failure) Diabetes ([facility]) Dietary counseling and surveillance Dyslipidemia Dyspepsia Dyspnea Encounter for long-term (current) use of medications Gastroenteritis History of TIA (transient ischemic attack) History of tobacco abuse HTN (hypertension) Hx of being hospitalized 10/29/2020 Electrolytes ICU 4 days Hyperlipidemia Hypomagnesemia Iron deficiency anemia secondary to blood loss (chronic) Mixed hyperlipidemia Nonallergic rhinitis Nonrheumatic aortic (valve) stenosis Orthostatic hypotension Osteoarthritis of fingers of both hands Superficial phlebitis and thrombophlebitis of left lower extremity Superficial phlebitis and thrombophlebitis of right lower extremity Type 2 diabetes mellitus with microalbuminuria, without long-term current use of insulin ([facility]) Type 2 diabetes mellitus with other diabetic kidney complication ([facility]) Varicose veins of bilateral lower extremities with pain Ventral hernia without obstruction or gangrene Vertigo Vitamin D deficiency, unspecified Past Surgical History: Procedure Laterality Date APPENDECTOMY 05/11/2025 CATARACT EXTRACTION, BILATERAL COLONOSCOPY 2017 COLONOSCOPY 06/2021 [...] recent change. No heart burn, liver or gallbladderdisease; no rectal bleeding or pain : No urinary pain , frequency or odor. MUSCULOSKELETAL: No muscle pain or cramps; no extremity weakness.No joint pain, stiffness, swellingor limitation of movement NEUROLOGY: No H/O seizures, stroke or fainting. No weakness, tremors. Hematology: No bleeding problems or excessive bruising ENDOCRINE: No increase in hunger, thirst or urination; admits compliance to medical management plan Feet: numbness tingling yes , ulcers or skin break no Lab Results Component Value Date HGBA1C 6.3 06/13/2025 HGBA1C 6.8 02/14/2025 HGBA1C 9.1 10/18/2024 Lab Results Component Value Date GLU 195 06/13/2025 GLU 95 05/13/2025 GLU 82 05/12/2025 08/25/2024 1:42 PM 10/18/2024 1:53 PM 11/02/2024 1:17 PM 01/19/2025 9:12 AM 02/14/2025 1:20 PM 05/03/2025 1:14 PM 06/13/2025 12:53 PM Vitals BMI 29.54 kg/m2 28.57 kg/m2 29.21 kg/m2 30.67 kg/m2 29.21 kg/m2 30.02 kg/m2 28.57 kg/m2 BSA (m2) 1.97 m2 1.93 m2 1.96 m2 2 m2 1.96 m2 1.98 m2 1.93 m2 Systolic 90 100 98 122 100 104 110 Diastolic 57 62 50 50 56 50 60 Heart Rate 80 82 77 82 80 43 51 SpO2 96 % 99 % 98 % 95 % 97 % 97 % Temp 97.1 F 97.5 F 97.5 F Resp 18 18 18 18 18 16 Height (in) 5' 6 5' 6 5' 6 5' 6 5' 6 5' 6 5' 6 Weight (lb) 183 177 181 190 181 186 177 Visit Report Report Report Report Report Report Report Report ' ASSESSMENT AND PLAN: Assessment/Plan Diagnoses and all orders for this visit: Type 2 diabetes mellitus with hyperglycemia, without long-term current use of insulin ([facility]) - POCT glucose manually resulted - POCT glycosylated hemoglobin (Hb A1C) docked device We will continue Januvia 50 mg once a day, Jardiance 25 mg once a day, glimepiride 2 mg twice a day. Vitamin D deficiency Vitamin-D 38 in May/2025. Primary hypertension Hyperlipemia, mixed Encounter for dietary consultation Stage 3b chronic kidney disease ([facility] GFR 40 in May/2025 No follow-ups on file. documented in this encounterCarondelet HealthMzzdlchsnv29-40-1267 History of Present illness Narrative* Zari Newton, MARINE ENGINE MECHANIC-DISPLAY CARVER - 05/31/2025 10:45 AM EDT 89-year-old male status post laparoscopic appendectomy on 05/12/2025. Patient denies nausea and vomiting but reports decreased appetite after surgery. He also reports diarrhea with 5-6 bowel movementsdaily. He denies pain. He denies fever and chills. On exam, abdomen soft, nontender, nondistended. Lap sites clean, dry and intact without signs of infection. C diff, GI panel will call with results. Hydration. High-fiber diet. Lifting restrictions for another month. Final Diagnosis Vermiform appendix, laparoscopic appendectomy: Fecaliths (multiple), appendix lumen. 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 No evidence of active acute appendicitis is identified. The entire vermiform appendix has been submitted for examination and evaluation. KERA Patel 05/31/25 1126 documented in this encounterAultman Orrville Hospital08-19-2025 History of Present illness Narrative* Jose Brewer MD - 05/03/2025 1:51 PM EDTAssociated Problem(s): Type 2 diabetes mellitus with microalbuminuria, without long-term current use of insulin ([facility]) BS stable and monitor. * Jose Brewer MD - 05/03/2025 1:51 PM EDTAssociated Problem(s): Osteoarthritis Pain stable and use OTC PRN. * Jose Brewer MD - 05/03/2025 1:50 PM EDTAssociated Problem(s): Gastroesophageal reflux disease without esophagitis Worsening symptoms and resume protonix. * Jose Brewer MD - 05/03/2025 1:50 PM EDTAssociated Problem(s): COPD (chronic obstructive pulmonary disease) ([facility]) Breathing stable and follow with pulmonology. * Jose Brewer MD - 05/03/2025 1:50 PM EDTAssociated Problem(s): Chronic heart failure with preserved ejection fraction (HFpEF) ([facility]) Edema stable and continue medication. Wear compression stockings daily. Elevated legs PRN. * Jose Brewer MD - 05/03/2025 1:50 PM EDTAssociated Problem(s): Benign essential hypertension BP stable and monitor PRN. * Jose Brewre MD - 05/03/2025 1:00 PM EDT Images from the original [...] Edema controlled with medication. Mild swelling at endof day and if on feet a lot. Edema improved in am and with elevation. Following with cardiology. OAstable. Pain in hips, knees, and shoulder. Pain [...] heart failure with preserved ejection fraction (HFpEF) ([facility]) Edema stable and continue medication. Wear compression stockings daily. Elevated legs PRN. COPD (chronic obstructive pulmonary disease) ([facility]) Breathing stable and follow with pulmonology. Type 2 diabetes mellitus with microalbuminuria, without long-term current use of insulin ([facility]) - Primary BS stable and monitor. Gastroesophageal reflux disease without esophagitis Worsening symptoms and resume protonix. Relevant Medications pantoprazole (ProtoNix) 40 MG EC tablet Osteoarthritis Pain stable and use OTC PRN. documented in this encounterCarondelet HealthAkcrvzuihp26-60-6533 History of Present illness Narrative* Delia Bustos MD - 02/14/2025 1:30 PM EDT Images from the original note were not included. Carlo Henderson is a 89 y.o. male No ref. provider found presents with chief complaint of Diabetesand Follow-up HPI: 01/2025 History of Present Illness [...] 2.04, GFR 31, hemoglobin 7.8. I told himhe need to follow with endo tech under primary care recommendation. Total cholesterol 111, HDL 44, triglycerides 71, LDL 52, vitamin D 31, albumin over creatinine 51, and C- peptide 4.7. He is on Actos 15 mg once a day. HPI: 07/2021 New patient sent from [facility] for uncontrolled diabetes. A1C in the office was 7. Bloodsugar 203. He has anemia, GI bleed; but [...] mg, Oral, 2 times daily glucose blood (FantasyBookuch Verio) test strip USE THREE TIMES A DAY. Glycopyrrolate-Formoterol 9-4.8 MCG/ACT aerosol 2 puffs, 2 times daily hydrOXYzine HCl (ATARAX) 25 mg Lancets (OneTouch Delica Plus Lyevhg77S) misc 3 times a day lisinopril 20 [...] for fall B12 deficiency Benign essential hypertension (CMS/HCC) Bilateral carotid artery stenosis CAD (coronary artery disease) ([facility] Chronic constipation Chronic diastolic heart failure (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 PFT 09/20/2020 -FEV1/FVC: 62% -FEV1: 69% -FVC: 77% -Bronchodilator response: None -RV: 127% -T%-DLCO: 57% -Flow-volume loop: Moderate obstruction COPD with acute exacerbation ([facility]) Coronary artery disease, occlusive ([facility]) CRF (chronic renal failure) Diabetes ([facility]) Dietary counseling and surveillance Dyslipidemia ([facility]) Dyspepsia Dyspnea Encounter for long-term (current) use of medications Gastroenteritis History of TIA (transient ischemic attack) History of tobacco abuse HTN (hypertension) ([facility]) Hx of being hospitalized 10/29/2020 Electrolytes ICU 4 days Hyperlipidemia ([facility]) Hypomagnesemia Iron deficiency anemia secondary to blood loss (chronic) Mixed hyperlipidemia ([facility] Nonallergic rhinitis Nonrheumatic aortic (valve) stenosis Orthostatic hypotension Osteoarthritis of fingers of both hands Superficial phlebitis and thrombophlebitis of left lower extremity Superficial phlebitis and thrombophlebitis of right lower extremity Type 2 diabetes mellitus with microalbuminuria, without long-term current use of insulin ([facility]) Type 2 diabetes mellitus with other diabetic [...] recent change. No heart burn, liver or gallbladderdisease; no rectal bleeding or pain : No urinary pain , frequency or odor. MUSCULOSKELETAL: No muscle pain or cramps; no extremity weakness.No joint pain, stiffness, swellingor limitation of movement NEUROLOGY: No H/O seizures, [...] hyperglycemia, without long-term current use of insulin ([facility]) - POCT glucose manually resulted - POCT [...] panel; Future Vitamin D deficiency Primary hypertension ([facility] Hyperlipemia, mixed ([facility]) Encounter for dietary consultation Stage 3b chronic kidney disease (HCC) ([facility]) Type 2 diabetes mellitus with hyperglycemia, with long-term current use of insulin ([facility]) - empagliflozin (Jardiance) 25 MG; Take 1 tablet (25 mg) by mouth Daily Assessment & Plan 1. Diabetes Mellitus. His A1c is 6.8 and blood sugar is 105. He is currently on Januvia 50 mg once a day, Jardiance 25 mgonce a day, and glimepiride 4 mg twice a day. He will continue with Januvia and Jardiance at the same dosages. Glimepiride will be reduced to 2 mg twice a day. He can cut his current tablets in half until a new prescription is sent. Follow up in about 4 months (around 06/16/2025). documented in this encounterCarondelet [id number] History of Present illness Narrative* Jose Brewer MD - 01/19/2025 10:15 AM EDTAssociated Problem(s): Type 2 diabetes mellitus with microalbuminuria, without long-term current use of insulin ([facility]) BS stable and monitor. * Jose Brewer MD - 01/19/2025 10:15 AM EDTAssociated Problem(s): Clostridium difficile colitis Much improved and complete vanco. Add probiotic and recommend activia. * Jose Brewer MD - 01/19/2025 9:00 AM EDT Images from the original note were not included. Subjective Patient ID: Carlo Henderson is a 89 y.o. male who presents for Follow-up (Hospital f/u). ER follow up from 01/14 for [...] No further pain or cramping. Appetite normal andBS stable. Review of Systems Constitutional: Negative for [...] microalbuminuria, without long-term current use of insulin ([facility]) BS stable and monitor. Clostridium difficile colitis - Primary Much improved and complete vanco. Add probiotic and recommend activia. documented in this encounterCarondelet [id number] History of Present illness Narrative* Jose Brewer MD - 11/02/2024 1:53 PM ESTAssociated Problem(s): COPD (chronic obstructive pulmonary disease) ([facility]/HCC) Breathing stable and follow with pulmonology. * Jose Brewer MD - 11/02/2024 1:53 PM ESTAssociated Problem(s): Other cirrhosis of liver ([facility]/HCC) Follow with GI. * Jose Brewer MD - 11/02/2024 1:51 PM ESTAssociated Problem(s): Type 2 diabetes mellitus with microalbuminuria, without long-term current use of insulin ([facility]) Reports BS elevated and follow up with endocrinology. Stick to ADA diet and limit carbs. * Jose Brewer MD - 11/02/2024 1:51 PM ESTAssociated Problem(s): Primary osteoarthritis of shoulders, bilateral Mild pain but tolerable and use OTC PRN. * Jose Brewer MD - 11/02/2024 1:51 PM ESTAssociated Problem(s): Gastroesophageal reflux disease without esophagitis Symptoms controlled with protonix and continue. * Jose Brewer MD - 11/02/2024 1:51 PM ESTAssociated Problem(s): Chronic heart failure with preserved ejection fraction (HFpEF) ([facility]/HCC) Edema stable and continue medication. Wear compression stockings daily. Elevated legs PRN. * Jose Brewer MD - 11/02/2024 1:50 PM ESTAssociated Problem(s): Benign essential hypertension (CMS/HCC) BP low and very lightheaded. Decrease lisinopril. Monitor PRN. * Jose Brewer MD - 11/02/2024 1:00 PM EST Images from the original note were not [...] empagliflozin (Jardiance) 25 MG documented in this encounterCarondelet [id number] History of Present illness Narrative* Delia Bustos MD - 10/18/2024 1:50 PM EST Carlo Henderson is a 88 y.o. male [...] 2.04, GFR 31, hemoglobin 7.8. I told himhe need to follow with endo tech under primary care recommendation. Total cholesterol 111, HDL 44, triglycerides 71, LDL 52, vitamin D 31, albumin over creatinine 51, and C- peptide 4.7. He is on Actos 15 mg once a day. HPI: 07/2021 [facility] patient sent [facility] for uncontrolled diabetes. A1C in the office was 7. Bloodsugar 203. He has anemia, GI bleed; but [...] MAIN MEAL OF THE DAY glucose blood (FantasyBookuch Verio) test strip Use as instructed Glycopyrrolate-Formoterol 9-4.8 MCG/ACT aerosol 2 puffs, 2 times daily hydrOXYzine HCl (ATARAX) 25 mg Januvia 50 mg Jardiance 10 mg, Oral, Daily Lancets (Immure RecordsTouch Delica Plus [id number]) misc 3 times a day lisinopril 40 [...] for fall B12 deficiency Benign essential hypertension ([facility]) Bilateral carotid artery stenosis CAD (coronary artery disease) ([facility] Chronic constipation Chronic diastolic heart failure (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) PFT 09/20/2020 -FEV1/FVC: 62% -FEV1: 69% -FVC: 77% -Bronchodilator response: None -RV: 127% -T%-DLCO: 57% -Flow-volume loop: Moderate obstruction COPD with acute exacerbation ([facility]) Coronary artery disease, occlusive ([facility]) CRF (chronic renal failure) Diabetes ([facility]) Dietary counseling and surveillance Dyslipidemia ([facility]) Dyspepsia Dyspnea Encounter for long-term (current) use of medications Gastroenteritis History of TIA (transient ischemic attack) History of tobacco abuse HTN (hypertension) ([facility]) Hx of being hospitalized 10/29/2020 Electrolytes ICU 4 days Hyperlipidemia ([facility]) Hypomagnesemia Iron deficiency anemia secondary to blood loss (chronic) Mixed hyperlipidemia ([facility]) Nonallergic rhinitis Nonrheumatic aortic (valve) stenosis Orthostatic hypotension Osteoarthritis of fingers of both hands Superficial phlebitis and thrombophlebitis of left lower extremity Superficial phlebitis and thrombophlebitis of right lower extremity Type 2 diabetes mellitus with microalbuminuria, without long-term current use of insulin ([facility]) Type 2 diabetes mellitus with other diabetic kidney complication ([facility]) Varicose veins of bilateral lower extremities with [...] REVERSE TOTAL SHOULDER ARTHROPLASTY Left 03/10/2019 SUZETTE VERDE ENDOVENOUS ABL 1ST V RT 02/21/2022 REVIEW [...] recent change. No heart burn, liver or gallbladderdisease; no rectal bleeding or pain : No urinary pain , frequency or odor. MUSCULOSKELETAL: No muscle pain or cramps; no extremity weakness.No joint pain, stiffness, swellingor limitation of movement NEUROLOGY: No H/O seizures, [...] hyperglycemia, without long-term current use of insulin ([facility]) - POCT glucose manually resulted - POCT [...] GFR around 30 he is following his endo tech Follow up in about 4 months (around 02/15/2025). documented in this encounterCarondelet [id number] [facility] Chief Complaint: [...] started on a new inhaler by his rad technologist. Denies recent weight gain. No orthopnea, no [...] to moderate mitral (more content not included)... [facility]12-11-2024 History of Present illness Narrative* Chanelle Benz MD - 08/25/2024 2:00 PM EST Images from the original note were not included. Subjective Patient ID: Carlo Henderson is a 88 y.o. male who presents for Cerumen Impaction Family History Problem Relation Name Age of Onset COPD Mother Other cancer Mother Varicose Veins Heart disease Father Diabetes Sibling Active Ambulatory Problems Diagnosis Date Noted Chronic kidney disease, stage 3b ([facility]) ([facility]) 05/05/2021 Chronic venous insufficiency of lower extremity 09/04/2020 Coronary artery disease [place] 10/30/2023 PAD (peripheral artery disease) ([facility]) 06/11/2021 B12 deficiency 10/30/2023 Benign essential hypertension ([facility] 10/30/2023 Chronic heart failure with preserved ejection fraction (HFpEF) ([facility] 10/30/2023 COPD (chronic obstructive pulmonary disease) ([facility]) 10/30/2023 Dyslipidemia ([facility]) 10/30/2023 Nonrheumatic aortic valve stenosis 10/30/2023 Primary osteoarthritis of shoulders, bilateral 10/30/2023 Type 2 diabetes mellitus with microalbuminuria, without long-term current use of insulin ([facility]) 10/30/2023 Gastroesophageal reflux disease without esophagitis 10/30/2023 Skin candidiasis 10/30/2023 Carotid stenosis, asymptomatic, left 12/25/2023 Carotid stenosis, right 03/11/2024 Chronic kidney disease 11/03/2023 History of CEA (carotid endarterectomy) 03/11/2024 Hyperlipidemia ([facility]/HCC) 11/03/2023 Osteoarthritis 11/03/2023 Other cirrhosis of liver (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) Chronic constipation Chronic diastolic heart failure (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) Coronary artery disease, occlusive ([facility]) Diabetes ([facility]) Dyspepsia Encounter for long-term (current) use of medications History of TIA (transient ischemic attack) History of tobacco abuse HTN (hypertension) ([facility]) Hx of being hospitalized 10/29/2020 Hypomagnesemia Iron [...] mg by mouth. Lancets (OneTouch Delica Plus Phlcri42F) misc 3 times a day 100 each [...] to ENT Ear cleaned documented in this encounterCarondelet [id number] History of Present illness Narrative* Jose Brewer MD - 08/20/2024 12:01 PM ESTAssociated Problem(s): 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 Ears plugged and bilateral impaction on exam. Ears irrigated with water and cerumen removed with speculum. Able to clear right canal but left remains impacted. Will refer to ENT. * Jose Brewer MD - 08/20/2024 11:45 AM EST Images from the original note were not [...] use q-tips inside ear. documented in this encounterCarondelet [id number] Evaluation note* Author Andry [facility] Osteopathic ClinicAuthoredOctober 2023 [id number] man with coronary artery disease s/p stents, CKD, diabetes referred to the liver clinic for evaluation of liver cirrhosis. Patient was told by another physician that he has liver cirrhosis. Will arrange for ultrasound of the liver. Will arrange for FibroScan. Will get laboratory workup for infectious autoimmune rheumatologic etiologies of liver diseases. Will check MELD labs [facility] Work Phone: [phone]) 128-713206-27-2024 History of Present illness Narrative* Brisa Enciso [...] also the contralateral stenosis.. documented in this encounterA[facility] Evaluation + Plan note* Assessment & Plan Note - Brisa Enciso MD - 01/22/2024 11:41 AM EDT Associated Problem(s): PAD (peripheral artery disease) ([facility] He does not have significant occlusive disease. Will continue with medical therapy [facility]05-09-2024 Evaluation + Plan note* Assessment & Plan Note - Brisa Enciso MD - 01/22/2024 11:41 AM EDTAssociated Problem(s): Bilateral carotid bruits Left carotid endarterectomy [facility]05-09-2024 Miscellaneous Notes* Assessment & Plan Note - Brisa Enciso MD - 01/22/2024 11:41 AM EDTAssociated Problem(s): PAD (peripheral artery disease) [place] He does not have significant occlusive disease. Will continue with medical therapy * Assessment & Plan Note - Brisa Enciso MD - 01/22/2024 11:41 AM EDT Associated Problem(s): Bilateral carotid bruits Left carotid endarterectomy documented in this encounterAultman Orrville [facility]05-09-2024 History of Present illness Narrative* Brisa Enciso [...] times a day as needed for dizziness. svavjlun-zgib-NV-calcium &mins (THERAGRAN-M) 9 mg iron-400 mcg tablet [...] kidney disease COPD (chronic obstructive pulmonary disease) [place] Dental disease full upper and lower dentures Diabetes mellitus [place] Diabetes mellitus type 2, controlled [place] BERG (dyspnea on exertion) Heart disease HL (hearing loss) no aids Hyperlipidemia Hypertension Stroke [place] 1990 Visual impairment glasses Past Surgical History: Past Surgical History: Procedure Laterality Date COLONOSCOPY CORONARY ANGIOPLASTY WITH STENT PLACEMENT stents x2 EGD Left Lateral 05/07/2021 Performed by Dominic Jamison DO at [facility] HERNIA REPAIR x2 TOTAL SHOULDER REPLACEMENT [...] Interpersonal Safety: Unknown (11/06/2023) Received from [facility] Safety & Environment Fear of Current or [...] Left carotid endarterectomy PAD (peripheral artery disease) ([facility] - Primary Current Assessment & Plan He does not have significant occlusive disease. Will continue with medical therapy Carlo was seen today for leg pain. Diagnoses and all orders for this visit: PAD (peripheral artery disease) [place] Bilateral carotid bruits Brisa Enciso MD, NANO, RPVI, FSVS, FACS [facility] [employer] [facility] This note was created with the assistance of a speech recognition program. While intending to generate a timely document that accurately reflects the content of the visit, no guarantee can be provided that every grammatical or spelling mistake has been or will be identified or corrected. Thank you for your understanding. documented in this encounterAultman Orrville [facility]05-08-2024 Instructions* Pre- Procedure Instructions - Lyssa Clarke RN - 01/21/2024 12:02 PM EDT Your surgery/procedure is scheduled at [facility] on 01/27/24 at 12:00 pm Arrival Time 10:00 am [facility] Address: [address] [place] [address] Park in P1 Parking lot located on [facility]. Report to the Entrance B. Check in at the information desk the surgery. The waiting room located on the second floor. If you have any questions prior to surgery, please call Pre-Admission Clinic at [phone] between 7:30 am and 4:30 pm Friday through Friday. If you have questions the morning of surgery, please call the Pre-op Department at [phone]. Notify your SURGEON if you develop any [...] would like to schedule therapy at a [facility] facility, please call [phone] ([phone]). Do not use lotions, creams, powders, perfume, [...] RIGHTS AND RESPONSIBILITIES As a patient at [facility], you have the right to: Receive medical care and be informed of who is taking care of you Be treated with dignity and respect Have a family member/retail wireless sales representative of choice and your physician notified of your admission Receive information and actively participate in decisions about your care and treatment Refuse care, treatment and services Decide who may provide your support and speak for you Access jehovah's witness and spiritual services Participate in ethical issues [...] of hospital charges and payment methods Patient/patient retail wireless sales representative responsibilities are to: Provide information [...] and report for surgery in clean clothes. [facility]05-08-[facility]24 Miscellaneous Notes* Pre-Procedure Instructions - Lyssa Clarke RN - 01/21/2024 12:02 PM EDT Your surgery/procedure is scheduled at [facility] on 01/27/24 at 12:00 pm Arrival Time 10:00 am [facility] Address: [address] [place] [address] Park in P1 Parking lot located on [facility]. Report to the Entrance B. Check in at the information desk the surgery. The waiting room located on the second floor. If you have any questions prior to surgery, please call Pre-Admission Clinic at [phone] between 7:30 am and 4:30 pm Friday through Friday. If you have questions the morning of surgery, please call the Pre-op Department at [phone]. Notify your SURGEON if you develop any [...] [facility] please call [address] [place] [address] ([phone]). Do not use lotions, creams, powders, perfume, [...] RIGHTS AND RESPONSIBILITIES As a patient at [facility], you have the right to: Receive medical care and be informed of who is taking care of you Be treated with dignity and respect Have a family member/retail wireless sales representative of choice and your physician notified of your admission Receive information and actively participate in decisions about your care and treatment Refuse care, treatment and services Decide who may provide your support and speak for you Access jehovah's witness and spiritual services Participate in ethical issues [...] of hospital charges and payment methods Patient/patient retail wireless sales representative responsibilities are to: Provide information [...] surgery in clean clothes. documented in this encounterMercy Health St. Elizabeth Boardman HospitalBadgeville Von Voigtlander Women'S [id number] Evaluation + Plan note* Assessment & Plan Note - Brisa Enciso MD - 01/08/2024 1:21 PM EDT Associated Problem(s): Rest pain of both lower extremities due to atherosclerosis (CMS-HCC) PVR and follow up [facility]04-25-2024 Evaluation + Plan note* Assessment & Plan Note - Brisa Enciso MD - 01/08/2024 1:21 PM EDTAssociated Problem(s): Carotid stenosis, asymptomatic, left Left CEA Cleared by cardiology [facility]04-25-2024 Miscellaneous Notes* Assessment & Plan Note - Brisa Enciso MD - 01/08/2024 1:21 PM EDTAssociated Problem(s): Rest pain of both lower extremities due to atherosclerosis [place] PVR and follow up * Assessment & Plan Note - Brisa Enciso MD - 01/08/2024 1:21 PM EDT Associated Problem(s): Carotid stenosis, asymptomatic, left Left CEA Cleared by cardiology documented in this encounterAultman Orr[facility]04-25-2024 History of Present illness Narrative* Brisa Enciso [...] times a day as needed for dizziness. jyczldqa-pfhf-GJ-calcium &mins (THERAGRAN-M) 9 mg iron-400 mcg tablet [...] Diagnosis Date COPD (chronic obstructive pulmonary disease) ([facility] Diabetes mellitus ([facility]) Diabetes mellitus type 2, controlled ([facility] Heart disease Hypertension Past Surgical History: Past Surgical History: Procedure Laterality Date CORONARY ANGIOPLASTY WITH STENT PLACEMENT EGD Left Lateral 05/07/2021 Performed by Dominic Jamison DO at [facility] HERNIA REPAIR Social and Family History: [...] Interpersonal Safety: Unknown (11/06/2023) Received from [facility] Safety & Environment Fear of Current or [...] both lower extremities due to atherosclerosis (CMS-HCC) Current Assessment & Plan PVR and follow [...] Brisa Enciso MD, NANO, RPVI, FSVS, FACS [facility] This note was created with the assistance of a speech recognition program. While intending to generate a timely document that accurately reflects the content of the visit, no guarantee can be provided that every grammatical or spelling mistake has been or will be identified or corrected. Thank you for your understanding. documented in this encounterAultman [facility]04-11-2024 Evaluation + Plan note* Assessment & Plan Note - Brisa Enciso MD - 12/25/2023 9:24 AM EDT Associated Problem(s): Left carotid artery stenosis L CEA versus stenting for high grade stenosis Needs cardiac clearance first [facility]04-11-2024 Miscellaneous Notes* Assessment & Plan Note - Brisa Enciso MD - 12/25/2023 9:24 AM EDTAssociated Problem(s): Left carotid artery stenosis L CEA versus stenting for high grade stenosis Needs cardiac clearance first [facility] History of Present illness Narrative* Brisa [...] Diagnosis Date COPD (chronic obstructive pulmonary disease) ([facility] [place] Diabetes mellitus type 2, controlled [place] [place] Heart disease Hypertension Past Surgical History: Past Surgical History: Procedure Laterality Date CORONARY ANGIOPLASTY WITH STENT PLACEMENT EGD Left Lateral 05/07/2021 Performed by Dominic Jamison DO at [facility] HERNIA REPAIR Social and Family History: [...] Interpersonal Safety: Unknown (11/06/2023) Received from [facility] [place] Safety & Environment Fear of Current [...] you for your understanding. documented in this encounterMercy Health St. Elizabeth Board[facility] HospitalBadgeville Von Voigtlander Women'S [id number] [facility] Note Chief Complaint: Patient here for 6 mo follow up CAD, hypertension, chronic systolic heart failure, and aortic valve stenosis. Had carotid US in May and labs in Jun 2023. He was started on Jardiance recently by his construction administrative assistant. Patient denies chest pain, palpitations, and lightheadedness/syncope. [...] started on a new inhaler by his rad technologist. Denies recent weight gain. No orthopnea, no [...] dysfunction Dyslipidemia Peripheral veno (more content not included)...[facility]02-15-2024 History of Present illness Narrative* Jose Brewer MD - 10/30/2023 3:17 PM ESTAssociated Problem(s): PAD (peripheral artery disease) ([facility]) Symptoms stable and follow up with vascular [...] Patient doing well today. Following with endocrinology timshree A1C elevated. Checking BS and doesn't remember [...] (Lotrimin) 1 % cream documented in this encounterCarondelet [id number] Evaluation note* Encounter Date Diagnosis Assessment Notes Treatment Notes Treatment Clinical Notes Jul, Benign prostatic hyp erplasia with lower urinary tract symptoms (ICD-10 - N40.1) [facility] Other 10-26-2023 Evaluation note* Encounter Date Diagnosis Assessment Notes Treatment Notes Treatment Clinical Notes Jun, 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 Patient likely has diabetic nephropathy and possible CRS Baseline creatinine fluctuate between 1.3-1.7 depending on cardiac function and diuretics doses SCrthis visit is 1.64 mg deciliter for this visit Pro/Cr is WNL. UA is completely benign Continue current dose of Bumex Blood pressures is well controlled Keep Hgb A1c at target to preserve kidney function I asked the patient to keep diabetes under good control and to avoid NSAID use. I will follow-up with the patient 4 months Jun,rimary hypertension (ICD-10 - I10)Blood pressure seems well controlled at home . please keep systolic blood pressure between 140-150.I will continue same dose of blood pressure medications Jun,nemia, unspecified type (ICD-10 - D64.9)Hemoglobin remians > 12 ith iron supplement and Vb12 continue iron supplement Jun,Localized edema (ICD-10 - R60.0)Will continue Bumex as above. advised low Na diet Jun,Hypocalcemia (ICD-10 - E83.51)Today calcium level has improved with calcium supplement. currently off supplement. total Ca level is 8.9. No need for replacement. Will continue to monitor the level Jun,Iron deficiency (ICD-10 - E61.1)Will continue oral iron supplement. Iron Sat is adequate 26 Oct, 2023Hypomagnesemia (ICD-10 - E83.42)Mg is 1.1 Jun,enign prostatic hyperplasia with lower urinary tract symptoms (ICD- 10 - N40.1)Will continue Flomax 0.4 mg PO at HS. Jun,Other obstructive and reflux uropathy (ICD-10 - N13.8) [facility] Other 06-23-2023 Evaluation note* Encounter Date Diagnosis Assessment Notes Treatment Notes Treatment Clinical Notes Feb, 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 Patient likely has diabetic nephropathy and possible CRS Baseline creatinine fluctuate between 1.3-1.7 depending on cardiac function and diuretics doses SCrthis visit is 1.7 mg deciliter for this [...] will follow-up with the patient 4 months Feb,rimary hypertension (ICD-10 - I10)Blood pressure seems well controlled at home . please keep systolic blood pressure between 140-150.I will continue same dose of blood pressure medications Patient has lung crackles. I asked the patient to take Bumex 2 mg PO BID. I aksed him to go to ED if breathing does not improve with higher diruetics dose. Denied chest pain Feb,nemia, unspecified type (ICD-10 - D64.9)Hemoglobin remians > 12 ith iron supplement and Vb12 continue iron supplement Feb,Localized edema (ICD-10 - R60.0)Needs higher dose of diuretics. Will increase Bumex as above. advised low Na diet Feb,Hypocalcemia (ICD-10 - E83.51)Today calcium level has improved with calcium supplement. Feb,Iron deficiency (ICD-10 - E61.1)recent Injectafer x 2 since last visit. Will continue oral iron supplement Feb,Hypomagnesemia (ICD-10 - E83.42)Mg is slightly better. continue supplement Feb,enign prostatic hyperplasia with lower urinary tract symptoms (ICD- 10 - N40.1)Will add Flomax 0.4 mg PO at HS. Feb,Other obstructive and reflux uropathy (ICD-10 - N13.8) [facility] Other 01-11-2023 Evaluation note* Encounter Date Diagnosis [...] will follow-up with the patient 6 months Sep,rimary hypertension (ICD-10 - I10)Blood pressure seems well controlled . please keep systolic blood pressure between 140-150. I will c ontinue same dose of blood pressure medications including diuretics Sep,nemia, unspecified type (ICD-10 - D64.9)Hemoglobin improved from 8 to 1.05 to 12.6 g/dL with iron supplement .Iron Sat < 30%. continue iron supplement Sep,Localized edema (ICD-10 - R60.0)Continue same dose of Bumex . advised low Na diet Sep,Hypocalcemia (ICD-10 - E83.51)Today calcium level has improved with calcium supplement. Total calcium level is 9.7 mg/dL. Continue same calcium supplement Sep,Iron deficiency (ICD-10 - E61.1)recent Injectafer x 2 since last visit. iron Sat 38%. Will continue to monitor iro storage. and decide about further IV Iron Sep,Hypomagnesemia (ICD-10 - E83.42) [facility] Other 07-19-2022 Evaluation note* Encounter Date Diagnosis [...] will follow-up with the patient 6 months Mar,rimary hypertension (ICD-10 - I10)Blood pressure seems well controlled . please keep systolic blood pressure between 140-150. I will c ontinue same dose of blood pressure medications Mar,nemia, unspecified type (ICD-10 - D64.9)Hemoglobin improved from 8 to 1.05 g/dL with 2 dose of Injectafer. Still has iron deficiency. I will schedule II more dose of Injectafer Mar,Localized edema (ICD-10 - R60.0)Patient is currently off hydrochlorothiazide and spironolactone. Only on Bumex 1 mg p.o. daily. Patient is volume expanded. I asked the patient to increase Bumex as above Mar,Hypocalcemia (ICD-10 - E83.51)Today calcium level has improved with calcium supplement. Total calcium level is 9.0 mg/dL. Continue same calcium supplement Mar,Iron deficiency (ICD-10 - E61.1)I will schedule II more doses of Injectafer [facility] Other 05-10-2022 Evaluation note* Encounter Date Diagnosis [...] decrease Aldactone to 25 mg p.o. daily. Follow- up with the patient 2 months UA is benign. Diabetes well controlled Asked the patient to stay away from NSAIDs and to use Tylenol if needed. January,rimary hypertension (ICD-10 - I10)Blood pressure seems well controlled but fluctuates. I will stop lisinopril and reduce spironolactone to 25 mg p.o. daily due to worsening kidney function January,nemia, unspecified type (ICD-10 - D64.9)Hemoglobin 8.0. Iron saturation 8%. I will give the patient a dose of Injectafer January,Localized edema (ICD-10 - R60.0)Improved with diuresis. Continue Bumex, hydrochlorothiazide and spironolactone January,Hypocalcemia (ICD-10 - E83.51)Total calcium level 5.7 mg/dL. Patient is taking 1 g of calcium supplement twice daily. I will check total calcium level today. If remains low increase to 3 times daily January,Iron deficiency (ICD-10 - E61.1) [facility] Other 05-02-2022 Evaluation note* Encounter Date Diagnosis Assessment Notes Treatment Notes Treatment Clinical Notes January, Stage 3b chronic kidney disease (CKD) (ICD-10 - N18.32) January,Localized edema (ICD-10 - R60.0) January,rimary hypertension (ICD-10 - I10) [facility] Other Evaluation noteNo InformationNort [facility] Other Evaluation noteNo assessment information available [facility] Work Phone: Evaluation note* Diagnosis Type 2 diabetes mellitus with microalbuminuria, without long-term current use of insulin ([facility] [place])- Primary Chronic heart failure with preserved ejection fraction (HFpEF) ([facility]) Benign essential hypertension ([facility]) Essential hypertension, benign Primary osteoarthritis of shoulders, bilateral Gastroesophageal reflux disease without esophagitis Esophageal reflux Skin candidiasis Candidiasis of skin and nails PAD (peripheral artery disease) (CMS/HCC) Unspecified peripheral vascular disease documented in this encounter [facility] Healthcare[facility]* Diagnosis Onset Date Resolution Status Anemia acuteBenign prostatic hyperplasia with lower urinary tract symptomsacuteDiabetic nephropathyacuteFluid overloadacuteHyperparathyroidismacuteHyperuricemiaacute HypocalcemiaacuteHypomagnesemiaacutePrimary hypertensionacuteStage 3b chronic kidney disease (CKD)acuteStatus post carotid surgerynoneactive [facility] Work Phone: Evaluation note* Author Andry Morales [facility] HospitalAuthoredOctober 2023 [id number] man with coronary artery disease s/p stents, CKD, diabetes referred to the liver clinic for evaluation of liver cirrhosis. Patient was told by another physician that he has liver cirrhosis. Will arrange for ultrasound of the liver. Will arrange for FibroScan. Will get laboratory workup for infectious autoimmune rheumatologic etiologies of liver diseases. Will check MELD labs [facility] Work Phone: Evaluation note* Diagnosis Type 2 diabetes mellitus with microalbuminuria, without long-term current use of insulin ([facility]/HCC)- Primary Chronic heart failure with preserved ejection [...] insulin (CMS/HCC)- Primary documented in this encounter [facility]* Diagnosis Type 2 diabetes mellitus [...] 3b (HCC) (CMS/HCC) documented in this encounter [facility]* Diagnosis Type 2 diabetes mellitus [...] (CMS/HCC) Chronic kidney disease, stage 3b (HCC) ([facility]/HCC) Left ear impacted cerumen Impacted cerumen documented in this encounter [facility]* Diagnosis Type 2 diabetes mellitus with microalbuminuria, without long-term current use of insulin ([facility]/HCC)- Primary Chronic heart failure with preserved ejection fraction (HFpEF) ([facility]/HCC) Benign essential hypertension ([facility]/HCC) Essential hypertension, benign Primary osteoarthritis of shoulders, bilateral Gastroesophageal reflux disease without esophagitis Esophageal reflux Skin candidiasis Candidiasis of skin and nails PAD (peripheral artery disease) ([facility]/HCC) Unspecified peripheral vascular disease Gastroenteritis- Primary Other and unspecified noninfectious gastroenteritis and colitis Other cirrhosis of liver ([facility]/HCC) Type 2 diabetes mellitus with microalbuminuria, without long-term current use of insulin ([facility]/HCC)- Primary Benign essential hypertension ([facility]/HCC) Essential hypertension, benign Chronic obstructive pulmonary disease, unspecified COPD type ([facility]/HCC) Chronic heart failure with preserved ejection fraction (HFpEF) (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/HCC) Type 2 diabetes mellitus with microalbuminuria, without long-term current use of insulin ([facility]/HCC) Type 2 diabetes mellitus with hyperglycemia, without long-term current use of insulin ([facility]/HCC) documented in this encounter [facility]* Diagnosis Type 2 diabetes mellitus with microalbuminuria, without long-term current use of insulin ([facility]/HCC)- Primary Chronic heart failure with preserved ejection fraction (HFpEF) ([facility]/HCC) Benign essential hypertension ([facility]/HCC) Essential hypertension, benign Primary osteoarthritis of shoulders, bilateral Gastroesophageal reflux disease without esophagitis Esophageal reflux Skin candidiasis Candidiasis of skin and nails PAD (peripheral artery disease) ([facility]/HCC) Unspecified peripheral vascular disease Gastroenteritis- Primary Other and unspecified noninfectious gastroenteritis and colitis Other cirrhosis of liver ([facility]/HCC) Type 2 diabetes mellitus with microalbuminuria, without long-term current use of insulin ([facility]/HCC)- Primary Benign essential hypertension ([facility]/HCC) Essential hypertension, benign Chronic obstructive pulmonary disease, unspecified COPD type ([facility]/HCC) Chronic heart failure with preserved ejection fraction (HFpEF) ([facility]/HCC) Primary osteoarthritis of shoulders, bilateral Gastroesophageal reflux disease without esophagitis Esophageal reflux Other cirrhosis of liver ([facility]/HCC) Type 2 diabetes mellitus with diabetic chronic kidney disease ([facility]/HCC) Chronic kidney disease, stage 3a (HCC) ([facility]/HCC) Hyperparathyroidism, unspecified ([facility]/HCC) Hyperparathyroidism, unspecified 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- Primary Type 2 diabetes mellitus with diabetic chronic kidney disease ([facility]/HCC) Chronic kidney disease, stage 3b (HCC) ([facility]/HCC) Type 2 diabetes mellitus with hyperglycemia, without long-term current use of insulin ([facility]/HCC)- Primary Vitamin D deficiency Primary hypertension ([facility]/HCC) Unspecified essential hypertension Hyperlipemia, mixed ([facility]) Mixed hyperlipidemia Encounter for dietary consultation Stage 3b chronic kidney disease (HCC) ([facility] [place]) documented in this encounter [facility]* Diagnosis Onset Date Resolution Status Admit Date Anemia acuteFebruary 2024 12:36pmBenign prostatic hyperplasia with lower urinary tract symptomsacuteFebruary 2024 12:36pmDiabetic nephropathyacuteFebruary 2024 12:36pmFluid overloadacuteFebruary 2024 12:36pm HyperparathyroidismacuteFebruary 2024 12:36pmHyperuricemiaacuteFebr2024 12:36pmHypocalcemiaacuteFebruary 2024 12:36pmHypomagnesemiaacute February 2024 12:36pmPrimary hypertensionacuteFebruary 2024 12:36pm Stage 3b chronic kidney disease (CKD)acuteFebruary 2024 12:36pm [facility] Work Phone: Evaluation note* Diagnosis Carotid stenosis, asymptomatic, left- Primary Rest pain of both lower extremities due to atherosclerosis ([facility] [place]) documented in this encounter [facility]* Diagnosis Carotid stenosis, asymptomatic, left- Primary PAD (peripheral artery disease) ([facility] [place])- Primary Unspecified peripheral vascular disease Bilateral carotid bruits Carotid stenosis, asymptomatic, left documented in this encounter [facility]* Diagnosis Carotid stenosis, asymptomatic, left- Primary Pre-op testing Unspecified pre-operative examination documented in this encounter [facility]* Diagnosis History of CEA (carotid endarterectomy)- Primary Carotid stenosis, right Occlusion and stenosis of carotid artery without mention of cerebral infarction documented in this encounter [facility]* Diagnosis Left carotid artery stenosis- Primary Chronic kidney disease, stage 3b ([facility] [place]) documented in this encounter [facility]* Diagnosis Type 2 diabetes mellitus with microalbuminuria, without long-term current use of insulin ([facility] [place])- Primary Chronic heart failure with preserved ejection fraction (HFpEF) ([facility] [place]) Benign essential hypertension ([facility] [place]) Essential hypertension, benign Primary osteoarthritis of shoulders, bilateral Gastroesophageal reflux disease without esophagitis Esophageal reflux Skin candidiasis Candidiasis of skin and nails PAD (peripheral artery disease) ([facility] [place]) Unspecified peripheral vascular disease Gastroenteritis- Primary Other and unspecified noninfectious gastroenteritis and colitis Other cirrhosis of liver ([facility] [place]) Type 2 diabetes mellitus with microalbuminuria, without long-term current use of insulin ([facility] [place])- Primary Benign essential hypertension ([facility] [place]) Essential hypertension, benign Chronic obstructive pulmonary disease, unspecified COPD type ([facility] [place]) Chronic heart failure with preserved ejection fraction (HFpEF) ([facility] [place]) Primary osteoarthritis of shoulders, bilateral Gastroesophageal reflux disease without esophagitis Esophageal reflux Other cirrhosis of liver ([facility] [place]) Type 2 diabetes mellitus with diabetic chronic kidney disease ([facility]) Chronic kidney disease, stage 3a (HCC) ([facility]/HCC) Hyperparathyroidism, unspecified ([facility] [place]) Hyperparathyroidism, unspecified 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- Primary Type 2 diabetes mellitus with diabetic chronic kidney disease ([facility] [place]) Chronic kidney disease, stage 3b (HCC) ([facility] [place]) Type 2 diabetes mellitus with microalbuminuria, without [...] COPD type (CMS/HCC) documented in this encounter [facility]* Diagnosis Type 2 diabetes mellitus [...] of insulin (CMS/HCC) documented in this encounter [facility]* Diagnosis Type 2 diabetes mellitus with microalbuminuria, without long-term current use of insulin ([facility]/HCC)- Primary Chronic heart failure with preserved ejection fraction (HFpEF) (CMS/HCC) Benign essential hypertension ([facility]/HCC) Essential hypertension, benign Primary osteoarthritis of shoulders, bilateral Gastroesophageal reflux disease without esophagitis Esophageal reflux Skin candidiasis Candidiasis of skin and nails PAD (peripheral artery disease) ([facility]/HCC) Unspecified peripheral vascular disease Gastroenteritis- Primary Other and unspecified noninfectious gastroenteritis and colitis Other cirrhosis of liver Type 2 diabetes mellitus with microalbuminuria, without long-term current use of insulin ([facility]/HCC)- Primary Benign essential hypertension (CMS/HCC) Essential hypertension, benign Chronic obstructive pulmonary disease, unspecified COPD type (CMS/HCC) Chronic heart failure with preserved ejection fraction (HFpEF) ([facility]/HCC) Primary osteoarthritis of shoulders, bilateral Gastroesophageal reflux disease without esophagitis Esophageal reflux Other cirrhosis of liver Type 2 diabetes mellitus with diabetic chronic kidney disease ([facility]/HCC) Chronic kidney disease, stage 3a (HCC) (CMS/HCC) Hyperparathyroidism, unspecified ([facility]/HCC) Hyperparathyroidism, unspecified 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- Primary Type 2 diabetes mellitus with diabetic chronic kidney disease (CMS/HCC) Chronic kidney disease, stage 3b (HCC) ([facility]/HCC) Type 2 diabetes mellitus with microalbuminuria, without long-term current use of insulin ([facility]/HCC)- Primary Benign essential hypertension ([facility] [facility]/HCC) Essential hypertension, benign Chronic heart failure with preserved ejection fraction (HFpEF) ([facility]/HCC) Primary osteoarthritis of shoulders, bilateral Gastroesophageal reflux disease without esophagitis Esophageal reflux Type 2 diabetes mellitus with hyperglycemia, with long-term current use of insulin ([facility]/HCC) Other cirrhosis of liver Chronic obstructive pulmonary disease, unspecified COPD type (CMS/HCC) Clostridium difficile colitis- Primary Intestinal infection due to clostridium difficile Type 2 diabetes mellitus with microalbuminuria, without long-term current use of insulin ([facility]/HCC) Type 2 diabetes mellitus with hyperglycemia, without long-term current use of insulin ([facility]/HCC)- Primary Vitamin D deficiency Primary hypertension ([facility]/HCC) Unspecified essential hypertension Hyperlipemia, mixed ([facility]) Mixed hyperlipidemia Encounter for dietary consultation Stage 3b chronic kidney disease (HCC) ([facility]) Type 2 diabetes mellitus with hyperglycemia, with long-term current use of insulin ([facility]/HCC) documented in this encounter [facility]* Diagnosis Type 2 diabetes mellitus with microalbuminuria, without long-term current use of insulin (HCC)- Primary Chronic heart failure with preserved ejection fraction (HFpEF) (HCC) Benign essential hypertension Essential hypertension, benign Primary [...] disease (HCC) Chronic kidney disease, stage 3a ([facility]-HCC) Hyperparathyroidism, unspecified (HCC) Hyperparathyroidism, unspecified Bilateral hearing [...] involving multiple joints documented in this encounter [facility]* Diagnosis Left carotid artery stenosis- Primary Chronic kidney disease, stage 3b ([facility]) Carotid stenosis, asymptomatic, left- Primary Rest pain of both lower extremities due to atherosclerosis ([facility]) PAD (peripheral artery disease)- Primary Unspecified peripheral vascular disease Bilateral carotid bruits Status post laparoscopic appendectomy- Primary Other postprocedural status Diarrhea, unspecified type documented in this encounter [facility]* Diagnosis Onset Date Resolution Status Admit Date Acute appendicitis acuteSeptember 2024 11:15am [facility] Work Phone: Evaluation note* Diagnosis Type 2 diabetes mellitus with microalbuminuria, without long-term current use of insulin (HCC)- Primary Chronic heart failure with preserved ejection fraction (HFpEF) (HCC) Benign essential hypertension Essential hypertension, benign Primary [...] disease (HCC) Chronic kidney disease, stage 3a ([facility]) Hyperparathyroidism, unspecified (HCC) Hyperparathyroidism, unspecified 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- Primary Type 2 diabetes mellitus with diabetic chronic kidney disease (HCC) Chronic kidney disease, stage 3b ([facility]) Type 2 diabetes mellitus with microalbuminuria, without [...] Esophageal reflux Primary osteoarthritis involving multiple joints Type 2 diabetes mellitus with hyperglycemia, without long-term current use of insulin ([facility])- Primary Vitamin D deficiency Primary hypertension Unspecified essential hypertension Hyperlipemia, mixed Mixed hyperlipidemia Encounter for dietary consultation Stage 3b chronic kidney disease [place] documented in this encounter [facility]* Diagnosis Left carotid artery stenosis- Primary Chronic kidney disease, stage 3b ([facility]) Carotid stenosis, asymptomatic, left- Primary Rest pain of both lower extremities due to atherosclerosis ([facility]) PAD (peripheral artery disease)- Primary Unspecified peripheral vascular disease Bilateral carotid bruits Status post laparoscopic appendectomy- Primary Other postprocedural status [facility] general Narrative - Reported* Type Description Date Medical History DIASTOLIC HEART FAILURE Medical HistoryDYSPNEAMedical HistoryCORONARY ATHEROSCLEROSISMedical History HYPERTENSIONMedical HistoryAORTIC VALVE STENOSISMedical HistoryPERIPHERAL VENOUS INSUFFICIENCYMedical HistorySYNCOPEMedical HistoryCHRONIC KIDNEY DISEASE STAGE 3Medical HistoryBILATERAL STENOSIS OF CAROTID ARTERIESMedical HistoryPERIPHERAL VASCULAR DISEASEMedical HistoryTYPE 2 DIABETES MELLITUS WITHOUT COMPLICATION Medical HistoryANEMIAMedical HistoryULCER ON RIGHT LOWER LEGMedical HistoryRASH ON BACK, LEGS, ARMS, BUTTOCKSMedical HistorySTROKESurgical HistorySHOULDER REPLACEMENT ON LEFTSurgical HistoryHERNIA REPAIR [id number] HistoryRIGHT HEART CATH07/28/2020Surgical HistoryCOMBINED RIGHT AND LEFT HEART CATHETERIZATION 01/18/2019Hospitalization History[facility] Other History general Narrative - Reported* Type Description Date Medical History DIASTOLIC HEART FAILURE Medical HistoryDYSPNEAMedical HistoryCORONARY ATHEROSCLEROSISMedical History HYPERTENSIONMedical HistoryAORTIC VALVE STENOSISMedical HistoryPERIPHERAL VENOUS INSUFFICIENCYMedical HistorySYNCOPEMedical HistoryCHRONIC KIDNEY DISEASE STAGE 3Medical HistoryBILATERAL STENOSIS OF CAROTID ARTERIESMedical HistoryPERIPHERAL VASCULAR DISEASEMedical HistoryTYPE 2 DIABETES MELLITUS WITHOUT COMPLICATION Medical HistoryANEMIAMedical HistoryULCER ON RIGHT LOWER LEGMedical HistoryRASH ON BACK, LEGS, ARMS, BUTTOCKSMedical HistorySTROKESurgical HistorySHOULDER REPLACEMENT ON LEFTSurgical HistoryHERNIA REPAIR [id number] HistoryRIGHT HEART CATH07/28/2020Surgical HistoryCOMBINED RIGHT AND LEFT HEART CATHETERIZATION 01/18/2019Surgical HistoryCATARACT REMOVED02/12/2023Surgical HistoryCATARACT REMOVED02/2023Hospitalization History[facility] Other InstructionsNot on filedocumented in this encounter [...] on filedocumented in this encounter [facility]Reason for [facility] (narrative)No reason for referral information availableFort [facility] Hospital Work Phone: Summary Purpose Family History Relationship Condition Age at Onset Recorded Date/T kiki brother Unknown Diabetes mellitusUnknownfatherDeceasedUnknownmotherDeceasedUnknown Advance Directives Advance Directive Response Recorded Date/ Time Advance Directives No April 17 11:18am Advance Directive Response Recorded Date/ Time Advance Directives No April 17 10:18am Date ActivatedDate InactivatedComments05/05/2021 6:35 PM05/08/2021 6:04 PMDate ActivatedDate InactivatedComments05/05/2021 6:35 PM05/08/2021 6:04 PMCode Status Date ActivatedDate InactivatedCommentsFull Code05/05/2021 6:35 PM05/08/2021 6:04 PMDate ActivatedDate InactivatedComments05/11/2025 1:07 PM05/13/2025 8:46 PMDate ActivatedDate InactivatedComments8/ 6:35 PM05/08/2021 6:04 PM Chief Complaint and Reason for Visit Chief Complaint D64.9 N18.32 Chief Complaint RENAL 4 MONTH F/U Reason for Visit Anemia 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 Fluid overload Hyperparathyroidism Hyperuricemia Hypocalcemia Hypomagnesemia Primary hypertension Stage 3b chronic kidney disease (CKD) Status post carotid surgery Chief Complaint RENAL 4 MONTH F/U Refer: cirrhosis of liverReason for VisitAnemia 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 Fluid overload Hyperparathyroidism Hyperuricemia Hypocalcemia Hypomagnesemia Primary hypertension Stage 3b chronic kidney disease (CKD) Status post carotid surgery Cirrhosis of liver Chief Complaint RENAL 4 MONTH F/U Refer: cirrhosis of liver K74.60 D64.9 E11.21 K74.60Reason for VisitAnemia 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 Fluid overload Hyperparathyroidism Hyperuricemia Hypocalcemia Hypomagnesemia Primary hypertension Stage 3b chronic kidney disease (CKD) Status post carotid surgery Cirrhosis of liver Chief Complaint RENAL 4 MONTH F/U Refer: cirrhosis of liver K74.60 D64.9 E11.21 K74.60 cirrhosis of liverReason for VisitAnemia 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 Fluid overload Hyperparathyroidism Hyperuricemia Hypocalcemia Hypomagnesemia Primary hypertension Stage 3b chronic kidney disease (CKD) Status post carotid surgery Cirrhosis of liver Chief Complaint RENAL 4 MONTH F/U Refer: cirrhosis of liver K74.60 D64.9 E11.21 K74.60 cirrhosis of liver k74.60 h120Ypfkvh for VisitAnemia Benign prostatic hyperplasia with lower urinary tract [...] 12:36pm Stage 3b chronic kidney disease (CKD) Samra brito 2024 12:36pm Chief Complaint Admit Date surgery-appendix removal June 07, 2025 11:15am Reason for Visit Admit Date Acute appendicitis June 07, 2025 11:15am Reason for Referral SpecialtyDiagnoses / ProceduresReferred By ContactReferred To Contact Diagnoses History of CEA (carotid endarterectomy) Carotid stenosis, right Procedures Vas carotid duplex bilateral Brisa Enciso MD [address], [address] [address] Referral IDStatusReEn[facility] DateExpiration DateVisits RequestedVisits [id number] Review/[id number] / ProceduresReferred By ContactReferred To Contact Diagnoses Carotid stenosis, asymptomatic, left Pre-op testing Procedures Echo complete W/O contrast Brisa Enciso MD [address], [address] [address] [id number] [place] [address] Phone: [phone] Referral IDStatusSent[facility] DateExpiration DateVisits RequestedVisits [id number]/[id number]/[id number] / Procedures Referred By ContactReferred To Contact Diagnoses Rest pain of both lower extremities due to atherosclerosis ([facility] Procedures Vas art doppler lwr bilat mult lev/PVR Brisa Enciso MD [address], [address] [address] Referral IDStatusReasonPonce DateExpiration DateVisits RequestedVisits [id number] Review/ Additional Source Comments (unrecognized sect ion and content) No Status Records FoundNo Status Records FoundNo Status Records FoundNo Status Records FoundNo Status Records FoundNo Status Records FoundNo Status Records FoundNo Status Records FoundNo Status Records Found INFORMATION SOURCE (unrecogn ized section and content) DATE CREATED AUTHOR 05/22/2020 [facility] DATE CREATED AUTHOR AUTHOR'S ORGANIZ ATION 09/07/2020 [facility] DATE CREATED AUTHOR AUTHOR'S ORGANIZ ATION 02/21/2023 [facility] DATE CREATED AUTHOR AUTHOR'S ORGANIZ ATION 02/12/2024 [facility] DATE CREATED AUTHOR AUTHOR'S ORGANIZ ATION 09/08/2024 [facility] DATE CREATED AUTHOR AUTHOR'S ORGANIZ ATION 09/14/2024 [facility] DATE CREATED AUTHOR AUTHOR'S ORGANIZ ATION 06/01/2025 [facility] DATE CREATED AUTHOR AUTHOR'S ORGANIZ ATION 06/19/2025 [facility] DATE CREATED AUTHOR AUTHOR'S ORGANIZ ATION 06/30/2025 [facility] REASON FOR VISIT (unrecogniz ed section and content) ReasonCommentsFollow-upFollow up from 05/31/25, post op laparoscopic appendectomy performed 05/12/25 at [facility], diarrheaReasonCommentsPOST-OP VISITLAPAROSCOPIC APPENDECTOMY PERFORMED 05/12/[address] LizamaCommentsFollow-da6uNldcokJqej dry heaves yesterday, better today, but happening multiple times a month Epistaxis (Nose Bleed)ReasonCommentsFollow-upHospital f/uReasonCommentsFollow-up 6mDizzinessWith nauseaReasonCommentsCarotid Artery DiseaseBilateral Carotid BruitsReasonCommentsLeg PainReasonCommentsfollow up after cardiac clearance ReasonCommentsDiabetesFollow-upReasonOnset DateCommentsMed Yxrcik8509/13/2024 ReasonCommentsCerumen ImpactionSpecialtyDiagnoses / ProceduresReferred By ContactReferred To ContactOtolaryngology Diagnoses 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 Procedures [facility] OFFICE[facility]IENT [facility] Jose Brewer MD [address] [place] [address] Phone: tel: fax: Chanelle Benz MD [address] [place] [address] Phone: tel: fax: Referral IDStatusReasonStart DateExpiration DateVisits RequestedVisits [id number] Specialty Services Required /[id number]-yvTspzexbs to ENTReasonCommentsMed RefillReasonCommentsFollow-upREFILLRENAL 4 month Follow upRENAL 6 month Follow [...] 2024 Team Status: Inactive Member Role Status Tameka Huizar MD Primary Care Provide r, Attending Provider Active Start: May 04, 2024 End: May 04, 2024 Team Status: Inactive Member Role Status Dates Kaur Huizar MD Primary Care Provider Active S tart: June 17, 2024 End: June 17, 2024Imad Asaantonia , MDAttending ProviderActiveStart: June 17, 2024 End: June 17, 2024Laxmi Hernandesing ProviderActiveStart: June 17, 2024 End: June 17, 2024 Team Status: Inactive Member Role Status Dates Jose Brewer MD Primary Care Provider Active S tart: June 17, 2024 End: June 17, 2024Imad Asaantonia , MDAttending ProviderActiveStart: June 17, 2024 End: June 17, 2024 Team Status: Active Member Role Status Dates Kaur Huizar MD Primary Care Provider Active Team Status: Inactive Member Role Status Dates Kaur Huizar MD Primary Care Provider, Attending Pro vider Active Team MemberRelationshipSpecialtyStart DateEnd Date Jose Brewer MD [address] [place] [address] PCP - GeneralFamily Medicine10/06/23Team MemberRelationshipSpecialtyStart DateEnd Date Jose Brewer MD [address] [place] [address] PCP - GeneralFamily Medicine10/06/23 Team Status: Inactive Member Role Status Dates Andry Morales MD Attending Provider Active Start: June 24, 2024 End: June 24, 2024[facility] RahwayJuels Bolandjackson medical centerjose francisco Care ProviderActiveStart: June 24, 2024 End: June 24, 2024 Team Status: Inactive Member Role Status Dates Jose Brewer MD Primary Care Provider Active S tart: July 02, 2024 End: July 02, 2024Imakelly Morales MDAttending ProviderActiveStart: July 02, 2024 End: July 02, 2024Team MemberRelationshipSpecialtyStart DateEnd Date Jose Brewer MD [address] [place] [address] [facility]10/06/23Team MemberRelationshipSpecialtyStart DateEnd Date Jose Brewer MD [address] [place] [address] PCP - GeneralFamily Medicine10/06/23Team MemberRelationshipSpecialtyStart DateEnd Date Jose Brewer MD [address] [place] [address] PCP - GeneralFamily Medicine10/06/23Team MemberRelationshipSpecialtyStart DateEnd Date Jose Brewer MD [address] [place] [address] PCP - GeneralFamily Medicine10/06/23Team MemberRelationshipSpecialtyStart DateEnd Date Jose Brewer MD [address] [place] [address] PCP - [facility] Medicine10/06/23Team MemberRelationshipSpecialtyStart DateEnd Date Jose Brewer MD [address] [place] [address] PCP - [facility] Medicine10/06/23Team MemberRelationshipSpecialtyStart DateEnd Date Jose Brewer MD [address] [place] [address] PCP - [facility] Medicine10/06/23Team MemberRelationshipSpecialtyStart DateEnd Date Jose Brewer MD [address] [place] [address] PCP - [facility] Medicine10/06/23Team MemberRelationshipSpecialtyStart DateEnd Date Jose Brewer MD [address] [place] [address] PCP - [facility] Medicine10/06/23 Team Status: Active Member Role Status Dates Jose Brewer MD Primary Care Provider Active S tart: October 11, 2024 Kaur Huizar MDAttending ProviderActiveStart: October 11, 2024 Team Status: Inactive Member Role Status Dates Kaur Huizar MD Attending Provider Active Star t: October 19, 2024 End: October 19, 2024Marc Gregory Brewer Care ProviderActiveStart: October 19, 2024 End: October 19, 2024Team MemberRelationshipSpecialtyStart DateEnd Date Jose Brewer MD [address] [facility] [place] [address] PCP - General1/18Team MemberRelationshipSpecialtyStart DateEnd Date Jose Brewer MD [address] [place] [place] [address] PCP - General/18Team MemberRelationshipSpecialtyStart DateEnd Date Jose Brewer MD [address] [place] [place] [address] PCP - General/18Team MemberRelationshipSpecialtyStart DateEnd Date Jose Brewer MD [address] [place] [address] PCP - General/18Team MemberRelationshipSpecialtyStart DateEnd Date Jose Brewer MD [address] [place] [address] PCP - General624Team MemberRelationshipSpecialtyStart DateEnd Date Jose Brewer MD [address] [facility] [address] PCP - General6/24Team MemberRelationshipSpecialtyStart DateEnd Date Jose Brewer MD [address] [facility] [place] [address] PCP - General1/2418Team MemberRelationshipSpecialtyStart DateEnd Date Jose Brewer MD [address] [place] [place] [address] PCP - General10/08/17Team MemberRelationshipSpecialtyStart DateEnd Date Jose Brewer MD PCP - General03/09/24Team MemberRelationshipSpecialtyStart DateEnd Date Jose Brewer MD [address] [place] [address] PCP - GeneralFamily Medicine10/06/23Team MemberRelationshipSpecialtyStart DateEnd Date Jose Brewer MD [address] [place] [address] PCP - GeneralFamily Medicine10/06/23Team MemberRelationshipSpecialtyStart DateEnd Date Jose Brewer MD [address] [place] [address] PCP - GeneralFamily Medicine10/06/23Team MemberRelationshipSpecialtyStart DateEnd Date Jose Brewer MD [address] [place] [address] PCP - GeneralFamily Medicine10/06/23Team MemberRelationshipSpecialtyStart DateEnd Date Jose Brewer MD [address] [place] [address] PCP - GeneralFamily Medicine10/06/23Team MemberRelationshipSpecialtyStart DateEnd Date Jose Brewer MD [address] [place] [address] [facility]CP - [facility] Medicine10/06/23Team MemberRelationshipSpecialtyStart DateEnd Date Jose Brewer MD PCP - General03/09/24 Team Status: Active Member Role Status Dates Jose Brewer MD Primary Care Provider Active S tart: May 30, 2025 Hussain Lunaending ProviderActiveStart: May 30, 2025 Team Status: Inactive Member Role Status Dates Jose Brewer MD Primary Care Provider Active S tart: June 07, 2025 End: June 07, 2025[facility] RahwayYris Boland ProviderActiveStart: June 07, 2025 End: June 07, 2025Team MemberRelationshipSpecialtyStart DateEnd Date Jose Brewer MD PCP - [facility] Medicine10/06/23Team MemberRelationshipSpecialtyStart DateEnd Date Jose Brewer MD [facility]10/06/23Team MemberRelationshipSpecialtyStart DateEnd Date Jose Brewer MD PCP - General03/09/24Team MemberRelationshipSpecialtyStart DateEnd Date Jose Brewer MD PCP - [facility] Medicine10/06/23Team MemberRelationshipSpecialtyStart DateEnd Date Jose Brewer MD PCP - [facility]10/06/23Team MemberRelationshipSpecialtyStart DateEnd Date Jose Brewer MD PCP - [facility]10/06/23 Goals (unrecognized section and content) Goals may [...] BE BASED ON THE PRIMARY CLINICAL RECORDS. [facility] [employer] [facility]. provides no warranty or guarantee of the accuracy or completeness of information in this document.
[2025-08-02 12:05] LABS: Total Protein Urine Random 6.2 mg/dL (<=11.9)
[2025-08-02 12:16] LABS: Hematocrit 35.0 % (42.0-54.0); Hemoglobin 11.8 g/dL (14.0-18.0); Mean Corpuscular HGB Conc 33.7 g/dL (29.9-35.2); Mean Corpuscular Hemoglobin 35.0 pg (25.9-34.0); Mean Corpuscular Volume 103.9 fL (80.0-94.0); Platelet Count 120 10^3/uL (150-450); Red Blood Count 3.37 10^6/uL (4.70-6.10); White Blood Count 6.2 10^3/uL (4.0-11.0)
[2025-08-02 12:20] LABS: Albumin Level 3.2 g/dL (3.4-5.0); Anion Gap 9.3; Blood Urea Nitrogen 33.0 mg/dL (7.0-18.0); Calcium 9.3 mg/dL (8.5-10.1); Carbon Dioxide 32.4 mmol/L (21.0-32.0); Chloride 107 mmol/L (98-107); Estimated GFR (African America 45 (>=60 mL/min/1.73m^2); Estimated GFR (Non-African Ame 37 (>=60 mL/min/1.73m^2); Glucose 189 mg/dL (74-106); Magnesium 2.1 mg/dL (1.8-2.4); Potassium 3.7 mmol/L (3.5-5.1); Sodium 145 mmol/L (136-145); Uric Acid 8.0 mg/dL (3.5-7.2)
[2025-08-02 12:52] LABS: Iron 104.0 ug/dL (65.0-175.0); Percent Iron Saturation 36.7 %; Total Iron Binding Capacity 283.0 ug/dL (250.0-450.0)
[2025-08-02 13:20] LABS: Folate 33.10 ng/mL (8.60-58.90)
[2025-08-03 04:07] LABS: Vitamin B12 1546 pg/mL (232-1245)
== END 2025-08-02 11:30 | disposition home or self-care (01) ==
LOC: LAB 11:32
PROVIDERS: PCP Family Medicine; Visit Provider Internal Medicine Nephrology
DX: E11.21 Type 2 diabetes mellitus with diabetic nephropathy (principal); E79.0 Hyperuricemia without signs of inflammatory arthritis and tophaceous disease; E21.3 Hyperparathyroidism, unspecified; N40.1 Benign prostatic hyperplasia with lower urinary tract symptoms; N18.32 Chronic kidney disease, stage 3b; I10 Essential (primary) hypertension
CPT/HCPCS: 36415; 80069; 82306; 82570; 82607; 82746; 83540; 83550; 83735; 84156; 84550; 85027

== ENCOUNTER 2025-08-29 12:47 | Outpatient (OUT) | payer MEDICARE, SELFPAY ==
--- NOTE | 2025-08-29 13:00 | CA_ITS ---
Patient Name: CARLO SUAREZ MR#: [id number] : 1935 Exam Date: 08/29/2025 Ordering Doctor: DR JAIDEN JONES M.D. ECHOCARDIOGRAM REPORT. PROCEDURE: CA ECHO DOPPLER COMPLETE INDICATIONS: Heart failure with reduced ejection fraction, aortic valve stenosis COMPARISON: None. DESCRIPTION: COMPLETE ECHOCARDIOGRAM Real-time transthoracic echocardiography with 2D, M-mode, spectral and color flow Doppler performed. QUALITY: Technical quality was good. LEFT VENTRICLE: Normal chamber size. Mild concentric left ventricular hypertrophy. Normal left ventricle systolic function, no wall motion abnormalities, calculated left ventricular ejection fraction is 58%. LV EF: Normal left ventricular ejection fraction, (>55%). DIASTOLIC: Normal diastolic function ATRIAL SEPTUM: Visually appears intact. LEFT ATRIUM: Mild dilatation. RIGHT ATRIUM: Mild dilatation. RIGHT VENTRICLE: Right ventricle size is at upper limit of normal. Normal right ventricular systolic function. TRICUSPID VALVE: Normal mobility and thickness. No stenosis with trivial regurgitation. No evidence of pulmonary hypertension.RVSP 19 mmHg MITRAL VALVE: Normal mobility and thickness. No evidence of mitral valve stenosis. There is no mitral annular calcification. Mild mitral regurgitation. AORTIC VALVE: Normal trileaflet appearance. Moderately calcified aortic valve. Moderately diminished mobility. Doppler velocity suggest moderate to severe low-flow low gradient aortic valve stenosis. DVI 0.26, SINAN 0.9 cm2, Vmax 2.55 m/s, peak/mean PG 26/15 mmHg. trivial aortic regurgitation. AORTIC ROOT: Normal diameter and appearance. Ascending aorta is normal in size PULMONIC VALVE: Normal thickness and mobility. No stenosis. No regurgitation. PERICARDIUM: No evidence of pericardial effusion. IVC: Collapes with inspirations. PLEURA: CONCLUSION: Mild left ventricle concentric hypertrophy Normal left ventricle systolic function without wall motion abnormalities, EF 58% Normal left ventricle diastolic function Right ventricle size at upper limit of normal, normal systolic function Normal right-sided pressure, RVSP 19 mmHg Mild biatrial enlargement Moderate to severe low-flow low gradient aortic stenosis, peak velocity 2.55 m/s, mean gradient 15 mmHg, DVI 0.26, SINAN 0.9 cm? Trivial aortic insufficiency Mild mitral regurgitation Adult Echocardiography Procedure Report Left Ventricle LVEDD (3.7 - 5.6 cm): 4.72 cm LVESD (2.2 - 4.0 cm): 3.54 cm LVIVS thickness (0.6 - 1.2 cm): 1.17 cm LVPW thickness (0.5 - 1.0 cm): 1.16 cm e': 0.09 m/s E - e': 4.21 LVOT Max Gradient: 1.81 mm[Hg] LVOT Area (cm2): 0.67 m/s Peak Velocity (LVOT): 0.67 m/s Mean Velocity (LVOT): 0.48 m/s LVOT Diameter 2.06 cm Left Ventricular Ejection Fraction: 58.25 % Left Atrium LA Volume Index (2D A2C): 40.96 ml/m2 Left Atrium Systolic Dimension: 4.04 cm Mitral Valve MV E to A Ratio: 0.64 MV Max Gradient: MV Mean Gradient: Mitral Valve A-Wave Peak Velocity: 0.63 m/s Mitral Valve E-Wave Peak Velocity: 0.40 m/s Cardiovascular Orifice Area: Right Ventricle RV Internal Diastolic Dimension: Aorta AO Root Diam: 3.16 cm Ascending Ao Diam: 3.26 cm Aortic Valve AoV Area ([place]): 0.88 cm2, 0.91 cm2 AoV Area (VTI): 0.85 cm2, 0.92 cm2 Deceleration [place]: Pressure Half-Time: Peak Velocity(Antegrade Flow): 2.48 m/s, 2.33 m/s, 2.55 m/s Peak Gradient(Antegrade Flow): 24.60 mm[Hg], 21.77 mm[Hg], 25.97 mm[Hg] Mean Velocity(Antegrade Flow): 1.71 m/s, 1.75 m/s, 1.80 m/s Mean Gradient(Antegrade Flow): 13.54 mm[Hg], 13.19 mm[Hg], 14.72 mm[Hg] Velocity Time Integral: 51.52 cm, 55.38 cm, 51.47 cm Tricuspid Valve Peak Velocity (Regurgitant Flow): 2.00 m/s Peak Velocity: Pulmonic Valve Mean Gradient: 1.42 mm[Hg] Mean Velocity: 0.54 m/s Peak Velocity: 0.88 m/s Peak Gradient: 3.11 mm[Hg] Right Atrium Right Atrium Systolic Pressure: 80.10 ml, 80.10 ml Dictated by: David Feliciano MD on 08/29/2025 at 18:30 Approved by: David Feliciano MD on 08/29/2025 at 18:42
== END 2025-08-29 12:48 | disposition home or self-care (01) ==
LOC: CARD 12:47
PROVIDERS: PCP Family Medicine; Visit Provider Internal Medicine Interventional Cardiology
DX: I50.41 Acute combined systolic (congestive) and diastolic (congestive) heart failure (principal); I08.0 Rheumatic disorders of both mitral and aortic valves
CPT/HCPCS: 93306